=== PATIENT | female | born 1940 | race American Indian/Alaskan Native ===

== ENCOUNTER 2017-10-25 13:04 | Emergency (ER) | payer MEDICARE, OTHER ==
[~2017-10-25] VITALS: Ht 160 cm; Wt 101.6 kg
[~2017-10-25 13:04] MED LIST: ALLOPURINOL100 MG PO; ASPIR 8181 MG PO; ASPIRIN81 MG PO; AZITHROMYCIN250 MG PO; BUDEPRION XL150 MG PO; BUSPIRONE HCL15 MG PO; CALCIUM + D3 E1 EACH PO; CHOLECALCIFEROL1 GM; COMBIVENT INH14.7 GM INH; CYCLOBENZAPRINE5 MG PO; DOCUSATE SODIU100 MG PO; ISOSORBIDE MONO30 M1 PO; KEFLEX250 MG PO; KLOR-CON M2020 MEQ PO; LASIX20 MG PO; LEXAPRO20 MG; LISINOPRIL2.5 MG PO; MONTELUKAST SOD10 MG PO; NICOTINE PATCH1 EAC1 TD; NORCO 5-325 TA1 EACH PO; OMEPRAZOLE20 MG PO; PERCOCET 5-3251 EACH PO; PREDNISONE20 MG PO; SIMVASTATIN20 MG PO; SINGULAIR10 MG PO; SULINDAC200 MG; TOPROL XL25 MG PO
[2017-10-25] MEDS ORDERED: METHYLPREDNISOLO4 M1 PO (14:38)
== END 2017-10-25 14:46 | disposition home or self-care (01) ==
LOC: ED 13:04
DX: M25.512 Pain in left shoulder (principal); J44.9 Chronic obstructive pulmonary disease, unspecified; F17.200 Nicotine dependence, unspecified, uncomplicated; Z79.899 Other long term (current) drug therapy; Z79.82 Long term (current) use of aspirin
CPT/HCPCS: 73030; 99283

== ENCOUNTER 2017-12-26 12:52 | Emergency (ER) | payer MEDICARE, OTHER ==
[~2017-12-26] VITALS: Ht 160 cm; Wt 117.9 kg
--- OUTSIDE RECORDS SUMMARY | ~2017-12-26 | XMS | Clinical Summary ---
Demographics + + + | Address | [address] | | | [place] [address] | + + + | Home Phone | | + + + | Preferred Language | Unknown | + + + | Marital Status | | + + + | Rastafarian Affiliation | [id number] | + + + | Race | Unknown | + + + | Ethnic Group | Unknown | + + + Author + + + | Author | [facility] | | | and [place] | + + + | Organization | [facility] | | | and [place] | + + + | Address | Unknown | + + + | Phone | Unavailable | + + + Care Team Providers + +------+ + | Care Garden Labourer Name | Role | Phone | + +------+ + | Pcp, Prov Inactive | PP | | + +------+ + Allergies No Known Allergies Current Medications + + +-------+---------+------+------+-------+ | Prescription | Sig. | Disp. | Refills | Star | End | Statu | | | | | | t | Date | s | | | | | | Date | | | + + +-------+---------+------+------+-------+ | ipratropium | Take or use as | | | 09/1 | | Activ | | (ATROVENT HFA) 17 | needed. | | | 3/20 | | e | | mcg/puff inhaler | | | | 12 | | | + + +-------+---------+------+------+-------+ | KCl in | Take 1 tablet by | | | 09/1 | | Activ | | Dextrose-NaCl | mouth daily | | | 3/20 | | e | | 10-5-0.2 MEQ/L-%-% | | | | 12 | | | | SOLN | | | | | | | + + +-------+---------+------+------+-------+ | quiNINE | Take 324 mg by mouth | | | 01/15 | | Activ | | (QUALAQUIN) 324 mg | nightly. | | | 320 | | e | | capsule | | | | 12 | | | + + +-------+---------+------+------+-------+ | calcium-vitamin D | Take by mouth 2 | | | 01/15 | | Activ | | (CALCIUM + D) | times daily. | | | 08/03 | | e | | 250-125 MG-UNIT per | | | | 12 | | | | tablet | | | | | | | + + +-------+---------+------+------+-------+ | warfarin | 3 mg four days a | | | 01/15 | | Activ | | (COUMADIN) 3 MG | week, 4.5 mg three | | | 20 | | e | | tablet | days a week. | | | 12 | | | + + +-------+---------+------+------+-------+ | simvastatin | Take 40 mg by mouth | | | 01/15 | | Activ | | (ZOCOR) 40 mg tablet | Daily. | | | 3/20 | | e | | | | | | 12 | | | + + +-------+---------+------+------+-------+ | albuterol | 2 puffs four times | | | 1 | | Activ | | (VENTOLIN HFA) 90 | daily as needed. | | | 3/20 | | e | | mcg/puff inhaler | | | | 12 | | | + + +-------+---------+------+------+-------+ | triamcinolone | 4 puffs twice daily. | | | 01/15 | | Activ | | acetonide (KENALOG) | | | | 320 | | e | | 10 MG/ML injection | | | | 12 | | | + + +-------+---------+------+------+-------+ | PARoxetine (PAXIL) | Take 20 mg by mouth | | | 01/15 | | Activ | | 20 mg tablet | Daily. | | | 320 | | e | | | | | | 12 | | | + + +-------+---------+------+------+-------+ | lisinopril | Take 5 mg by mouth | | | 01/15 | | Activ | | (PRINIVIL, ZESTRIL) | Daily. | | | 320 | | e | | 5 mg tablet | | | | 12 | | | + + +-------+---------+------+------+-------+ | furosemide (LASIX) | Take 20 mg by mouth | | | 01/15 | | Activ | | 20 mg tablet | Daily. | | | 08/03 | | e | | | | | | 12 | | | + + +-------+---------+------+------+-------+ | loratadine | Take 10 mg by mouth | | | 01/15 | | Activ | | (CLARITIN) 10 mg | Daily as needed. | | | 08/03 | | e | | tablet | | | | 12 | | | + + +-------+---------+------+------+-------+ | metoprolol | Take 25 mg by mouth | | | 01/15 | | Activ | | succinate | Daily. | | | 08/03 | | e | | (TOPROL-XL) 25 mg 24 | | | | 12 | | | | hr tablet | | | | | | | + + +-------+---------+------+------+-------+ | acetaminophen | Take or use as | | | 09/1 | | Activ | | (TYLENOL) 325 mg | needed. | | | 3/20 | | e | | tablet | | | | 12 | | | + + +-------+---------+------+------+-------+ Active Problems + + + | Problem | Noted Date | + + + | CARDIOMYOPATHY, ISCHEMIC | | + + + | PULMONARY EMBOLISM | | + + + | HYPERTENSION | | + + + | HYPERCHOLESTEROLEMIA | | + + + | MYOCARDIAL INFARCTION, HX OF | | + + + | CORONARY ARTERY BYPASS GRAFT, FOUR VESSEL, HX OF | | + + + | COPD | | + + + | BRONCHITIS, CHRONIC | | + + + | ANGINA, STABLE | | + + + Social History + +-------+ [...] + + + | Blood Pressure | 122/74 | 01/27/2009 0000 PDT | + + + + | Pulse | - | - | + + + + | Temperature | - | - | + + + + | Respiratory Rate | - | - | + + + + | Oxygen Saturation | - | - | + + + + | Inhaled Oxygen | - | - | | Concentration | | | + + + + | Weight | 106.6 kg (235 lb) | 01/27/2009 0000 PDT | + + + + | Height | 160 cm (5' 3") | 01/27/2009 0000 PDT | + + + + | Body Mass Index | 41.63 | 01/27/2009 0000 PDT | + + + + Plan of Treatment + + + + + | Health Maintenance | Due Date | Last Done | Comments | + + + + + | Vaccine: | | | | | Dtap/Tdap/Td (1 - | 8 | | | | Tdap) | | | | + + + + + | Vaccine: | | | | | Pneumococcal 65+ | 4 | | | | Low/Medium Risk (1 | | | | | of 2 - PCV13) | | | | + + + + + | Vaccine: Influenza | | | | | (#1) | 8 | | | + + + + + Results Not on filefrom Last 3 Months Insurance + +--------+ +--------+ +---------+ | Payer | Benefi | Subscriber | Type | Phone | Address | | | t Plan | ID | | | | | | / | | | | | | | Group | | | | | + +--------+ +--------+ +---------+ | MEDICARE | MEDICA | [id number] | Medica | [phone] | | | RE | | re | [phone] | | | | PART A | | | | | | | AND B | | | | | + +--------+ +--------+ +---------+ | [facility] | [employer] | [phone] | Indemn | | | | SERVICE | YELLOW | | ity | | | | | HAWK | | | | | + +--------+ +--------+ +---------+ + +--------+ +--------+ + + | Guarantor Name | Accoun | Relation to | Date | Phone | Billing Address | | | t Type | Patient | of | | | | | | | | | | + +--------+ +--------+ + + | YULIANA GALINDO | Person [birth year] Self [birth year] Home: | [address] | | | al/Fam | | [phone] | [phone] | [place] [address] | | | shavon | | | [phone] | | + +--------+ +--------+ + +
--- OUTSIDE RECORDS SUMMARY | ~2017-12-26 | XMS | Encounter Summary ---
Demographics + + + | Address | [address] | | | [place] [address] | + + + | Home Phone | | + + + | Preferred Language | Unknown | + + + | Marital Status | | + + + | Buddhist Affiliation | 1041 | + + + | Race | Unknown | + + + | Ethnic Group | Unknown | + + + Author + + + | Author | [facility] | + + + | Organization | [facility] | + + + | Address | [...] Providers + +------+ + | Care Steam Blocker Name | Role | Phone | + +------+ + | Roxana Barajas PA-C | PCP | | + +------+ + Encounter Details +--------+ + + + + | Date | Type | Department | Care Team | Description | +--------+ + + + + | 12/20/ | Orders Only | [facility] | Adore Crooks, YUE | | | 2018 | | [facility] [place] | [address] | | | | | [address] | [place], [place] | | | | | [place], [place] | [address] | | | | | [address] | | | | | | [phone] | | | +--------+ + + + + Social History + +-------+ +--------+------+ | Tobacco Use | Types | Packs/Day | Years | Date | | | | | Used | | + +-------+ +--------+------+ | Heavy Tobacco Smoker | | 1 | 25 | | + +-------+ +--------+------+ + + +---------+ + | Alcohol Use [...] | +--------+ + + + + | 03/28/ | Documentati | Cardiology | | | | 2018 | on Only | | | | +--------+ + + + + | 07/04/ | Documentati | Cardiology | | | | 2019 | on Only | | | | +--------+ + + + + as of this encounter Procedures + +--------+ + + + | Procedure Name | Priori | Date/Time | Associated Diagnosis | Comments | | | ty | | | | + +--------+ + + + | PACEART DEVICE CHECK | Routin | 12/20/2017 | | Results for this | | REMOTE | e | 11:45 AM | | procedure are in the | | | | PDT | | results section. | + +--------+ + + + in this encounter Results PACEART DEVICE CHECK REMOTE (12/20/2017 11:45 AM) + + + + + | Component | Value | Ref Range | Performed At | + + + + + | Date Time | [id number] | | PACE[facility] | | Interrogation | | | | | Session | | | | + + + + + | Implantable Pulse | MDC_IDC_ENUM_MFG_BSX | | [facility]ACE[facility] | | Generator | | | | | Inspection Supervisor | | | | + + + + + | Implantable Pulse | [id number] TELIGEN 100 | | [facility] | | Generator Model | | | | + + + + + | Implantable Pulse | [id number] | | [facility] | | Generator Serial | | | | | Number | | | | + + + + + | Type Interrogation | MDC_IDC_ENUM_SESS_TYPE_R | | PACE[facility] | | Session | emote | | | + + + + + | Clinic Name | [facility] | | [facility] | + + + + + | Implantable Pulse | MDC_IDC_ENUM_DEV_TYPE_IC | | [facility] | | Generator Type | D | | | + + + + + | Implantable Pulse | [id number] | | [facility] | | Generator Implant | | | | | Date | | | | + + + + + | Implantable Lead | Guidant | | [facility] | | Inspection Supervisor | | | | + + + + + | Implantable Lead | [id number] | | [facility] | | Model | | | | + + + + + | Implantable Lead | [id number] | | [facility] | | Serial Number | | | | + + + + + | Implantable Lead | [id number] | | PACE[facility] | | Implant Date | | | | + + + + + | Implantable Lead | MDC_IDC_ENUM_LEAD_LOCATI | | [facility]ACE[facility] | | Location | ON_[place] | | | + + + + + | Implantable Lead | Guidant | | [facility]ACE[facility] | | Inspection Supervisor | | | | + + + + + | Implantable Lead | FINELINE II EZ Sterox | | PACE[facility] | | Model | [id number] | | | + + + + + | Implantable Lead | [id number] | | PACE[facility] | | Serial Number | | | | + + + + + | Implantable Lead | [id number] | | [facility]ACE[facility] | | Implant Date | | | | + + + + + | Implantable Lead | MDC_IDC_ENUM_LEAD_LOCATI | | [facility] | | Location | [place] | | | + + + + + | Tom Setting Mode | MDC_IDC_ENUM_BRADY_MODE_ | | PACE[facility] | | (NBG Code) | VDD | | | + + + + + | Tom Setting Lower | 50 | {beats}/min | [facility] | | Rate Limit | | | | + + + + + | Tom Setting | 130 | {beats}/min | [facility] | | Maximum Tracking | | | | | Rate | | | | + + + + + | Tom Setting | 120 | {beats}/min | [facility] | | Maximum Sensor Rate | | | | + + + + + | Tom Setting MAGEN | 350 | ms | PACE[facility] | | Delay Low | | | | + + + + + | Tom Setting MAGEN | 220 | ms | PACE[facility] | | Delay High | | | | + + + + + | Tom Setting AT | 170 | {beats}/min | [facility] | | Mode Switch Rate | | | | + + + + + | Tom Setting AT | MDC_IDC_ENUM_BRADY_MODE_ | | PACE[facility] | | Mode Switch Mode | VDIR | | | + + + + + | Lead Channel Setting | MDC_IDC_ENUM_POLARITY_BI | | PACE[facility] | | Sensing Polarity | | | | + + + + + | Lead Channel Setting | 0.15 | mV | [facility] | | Sensing Sensitivity | | | | + + + + + | Lead Channel Setting | MDC_IDC_ENUM_SENSING_ADA | | [facility]ACE[facility] | | Sensing Adaptation | PTATION_MODE_AdaptiveSen | | | | Mode | sing | | | + + + + + | Lead Channel Setting | MDC_IDC_ENUM_POLARITY_BI | | PACE[facility] | | Sensing Polarity | | | | + + + + + | Lead Channel Setting | 0.6 | mV | PACE[facility] | | Sensing Sensitivity | | | | + + + + + | Lead Channel Setting | MDC_IDC_ENUM_SENSING_ADA | | PACEART | | Sensing Adaptation | PTATION_MODE_AdaptiveSen | | | | Mode | sing | | | + + + + + | Lead Channel Setting | MDC_IDC_ENUM_POLARITY_BI | | PACEART | | Pacing Polarity | | | | + + + + + | Lead Channel Setting | MDC_IDC_ENUM_POLARITY_BI | | PACE[facility] | | Pacing Polarity | | | | + + + + + | Lead Channel Setting | 0.5 | ms | PACE[facility] | | Pacing Pulse Width | | | | + + + + + | Lead Channel Setting | 2.0 | V | PACEART | | Pacing Amplitude | | | | + + + + + | Zone Setting Type | MDC_IDC_ENUM_ZONE_TYPE_Z | | PACEART | | Category | one_VF | | | + + + + + | Zone Setting Vendor | MDC_IDC_ENUM_ZONE_VENDOR | | PACEART | | Type Category | _TYPE_BSX-Zone_VFComment | | | | | : 663758^MDT PROG TACHY | | | | | ZONE DETECTIONS | | | | | STATUS^MDT - ENABLED | | | + + + + + | Zone Setting | 261 | ms | PACE[facility] | | Detection Interval | | | | + + + + + | Zone Setting Type | MDC_IDC_ENUM_ZONE_TYPE_Z | | PACEART | | Category | one_VT | | | + + + + + | Zone Setting Vendor | MDC_IDC_ENUM_ZONE_VENDOR | | PACEART | | Type Category | _TYPE_BSX-Zone_VTComment | | | | | : 557427^MDT PROG TACHY | | | | | ZONE DETECTIONS | | | | | STATUS^MDT - ENABLED | | | + + + + + | Zone Setting | 316Comment: 297889^MDT | ms | PACE[facility] | | Detection Interval | PROG TACHY ZONE | | | | | THERAPIES 1 | | | | | SEQUENCEID^MDT - | | | | | 1 902425^MDT PROG | | | | | TACHY ZONE THERAPIES 1 | | | | | STATUS^MDT - | | | | | 579347^MDC_IDC_ENUM_ZONE | | | | | _STATUS_Active^MDC 10 | | | | | 0103^MDT PROG TACHY ZONE | | | | | THERAPIES 1 ATPTHERAPY | | | | | TYPE^MDT - | | | | | 952887^MDC_IDC_ENUM_ATP_ | | | | | TYPE_Burst^MDC 930745 | | | | | ^MDT PROG TACHY ZONE | | | | | THERAPIES 1 ATPTHERAPY | | | | | NUMBEROFSEQUENCES^MDT - | | | | | 1 591078^MDT PROG | | | | | TACHY ZONE THERAPIES 2 | | | | | SEQUENCEID^MDT - | | | | | 2 347487^MDT PROG | | | | | TACHY ZONE THERAPIES 2 | | | | | STATUS^MDT - | | | | | 990689^[facility] [place]IDC_ENUM_ZONE | | | | | _STATUS_Active^[facility] [place] 10 | | | | | 1064^MDT PROG TACHY ZONE | | | | | THERAPIES 2 | | | | | SHOCKTHERAPY ENERGY^MDT | | | | | - 31 655980^MDT PROG | | | | | TACHY ZONE THERAPIES 3 | | | | | SEQUENCEID^MDT - | | | | | 3 554839^MDT PROG | | | | | TACHY ZONE THERAPIES 3 | | | | | STATUS^MDT - | | | | | 341152^[facility] [place]_IDC_ENUM_ZONE | | | | | _STATUS_Active^[facility] [place] 10 | | | | | 1065^MDT PROG TACHY ZONE | | | | | THERAPIES 3 | | | | | SHOCKTHERAPY ENERGY^MDT | | | | | - 41 640221^MDT PROG | | | | | TACHY ZONE THERAPIES 4 | | | | | SEQUENCEID^MDT - | | | | | 4 866172^MDT PROG | | | | | TACHY ZONE THERAPIES 4 | | | | | STATUS^MDT - | | | | | 549068^[facility] [place]_IDC_ENUM_ZONE | | | | | _STATUS_Active^[facility] [place] 10 | | | | | 1066^MDT PROG TACHY ZONE | | | | | THERAPIES 4 | | | | | SHOCKTHERAPY ENERGY^MDT | | | | | - 41 898568^MDT PROG | | | | | TACHY ZONE THERAPIES 5 | | | | | SEQUENCEID^MDT - | | | | | 5 388877^MDT PROG | | | | | TACHY ZONE THERAPIES 5 | | | | | STATUS^MDT - | | | | | 492880^[facility] [place]_IDC_ENUM_ZONE | | | | | _STATUS_Active^[facility] [place] 10 | | | | | 1067^MDT PROG TACHY ZONE | | | | | THERAPIES 5 | | | | | SHOCKTHERAPY ENERGY^MDT | | | | | - 41 088047^MDT PROG | | | | | TACHY ZONE THERAPIES 6 | | | | | SEQUENCEID^MDT - | | | | | 6 813256^MDT PROG | | | | | TACHY ZONE THERAPIES 6 | | | | | STATUS^MDT - | | | | | 466912^[facility] [place]_IDC_ENUM_ZONE | | | | | _STATUS_Active^[facility] [place] 10 | | | | | 1068^MDT PROG TACHY ZONE | | | | | THERAPIES 6 | | | | | SHOCKTHERAPY ENERGY^MDT | | | | | - 41 074577^MDT PROG | | | | | TACHY ZONE THERAPIES 7 | | | | | SEQUENCEID^MDT - | | | | | 7 888776^MDT PROG | | | | | TACHY ZONE THERAPIES 7 | | | | | STATUS^MDT - | | | | | 986094^[facility] [place]_IDC_ENUM_ZONE | | | | | _STATUS_Active^[facility] [place] 10 | | | | | 1069^MDT PROG TACHY ZONE | | | | | THERAPIES 7 | | | | | SHOCKTHERAPY ENERGY^MDT | | | | | - 41 808294^MDT PROG | | | | | TACHY ZONE THERAPIES 8 | | | | | SEQUENCEID^MDT - | | | | | 8 048751^MDT PROG | | | | | TACHY ZONE THERAPIES 8 | | | | | STATUS^MDT - | | | | | 524779^[facility] [place]_IDC_ENUM_ZONE | | | | | _STATUS_Active^[facility] [place] 10 | | | | | 1070^MDT PROG TACHY ZONE | | | | | THERAPIES 8 | | | | | SHOCKTHERAPY ENERGY^MDT | | | | | - 41 373067^MDT PROG | | | | | TACHY ZONE THERAPIES 9 | | | | | SEQUENCEID^MDT - | | | | | 9 954688^MDT PROG | | | | | TACHY ZONE THERAPIES 9 | | | | | STATUS^MDT - | | | | | 010261^[facility] [place]_IDC_ENUM_ZONE | | | | | _STATUS_Active^[facility] [place] [place] 10 | | | | | 1071^MDT PROG TACHY ZONE | | | | | THERAPIES 9 | | | | | SHOCKTHERAPY ENERGY^MDT | | | | | - 41 9659092^MDT PROG | | | | | TACHY ZONE THERAPIES | | | | | SUMMARY^MDT - Burst, | | | | | 31J, 41J X | | | | | 7 952660^MDT PROG | | | | | TACHY ZONE THERAPIES 1 | | | | | SEQUENCEID^MDT - | | | | | 1 061629^MDT PROG | | | | | TACHY ZONE THERAPIES 1 | | | | | STATUS^MDT - | | | | | 573424^[facility] [place]_IDC_ENUM_ZONE | | | | | _STATUS_Active^[facility] [place] [place] 10 | | | | | 0103^MDT PROG TACHY ZONE | | | | | THERAPIES 1 ATPTHERAPY | | | | | TYPE^MDT - | | | | | 245045^[facility] [place]_IDC_ENUM_ATP_ | | | | | TYPE_Burst^MDC 336359 | | | | | ^MDT PROG TACHY ZONE | | | | | THERAPIES 1 ATPTHERAPY | | | | | NUMBEROFSEQUENCES^MDT - | | | | | 3 663495^MDT PROG | | | | | TACHY ZONE THERAPIES 2 | | | | | SEQUENCEID^MDT - | | | | | 2 693632^MDT PROG | | | | | TACHY ZONE THERAPIES 2 | | | | | STATUS^MDT - | | | | | 219648^[facility] [place]_IDC_ENUM_ZONE | | | | | _STATUS_Active^[facility] [place] [place] 10 | | | | | 0104^MDT PROG TACHY ZONE | | | | | THERAPIES 2 ATPTHERAPY | | | | | TYPE^MDT - | | | | | 070806^[facility] [place]_IDC_ENUM_ATP_ | | | | | TYPE_BurstScan^[facility] [place] [place] 10 | | | | | 0324^MDT PROG TACHY ZONE | | | | | THERAPIES 2 ATPTHERAPY | | | | | NUMBEROFSEQUENCES^MDT - | | | | | 3 223741^MDT PROG | | | | | TACHY ZONE THERAPIES 3 | | | | | SEQUENCEID^MDT - | | | | | 3 211464^MDT PROG | | | | | TACHY ZONE THERAPIES 3 | | | | | STATUS^MDT - | | | | | 732727^[facility] [place]_IDC_ENUM_ZONE | | | | | _STATUS_Active^[facility] [place] [place] 10 | | | | | 1065^MDT PROG TACHY ZONE | | | | | THERAPIES 3 | | | | | SHOCKTHERAPY ENERGY^MDT | | | | | - 31 860425^MDT PROG | | | | | TACHY ZONE THERAPIES 4 | | | | | SEQUENCEID^MDT - | | | | | 4 707183^MDT PROG | | | | | TACHY ZONE THERAPIES 4 | | | | | STATUS^MDT - | | | | | 465130^[facility] [place]_IDC_ENUM_ZONE | | | | | _STATUS_Active^[facility] [place] [place] 10 | | | | | 1066^MDT PROG TACHY ZONE | | | | | THERAPIES 4 | | | | | SHOCKTHERAPY ENERGY^MDT | | | | | - 41 656741^MDT PROG | | | | | TACHY ZONE THERAPIES 5 | | | | | SEQUENCEID^MDT - | | | | | 5 237574^MDT PROG | | | | | TACHY ZONE THERAPIES 5 | | | | | STATUS^MDT - | | | | | 922294^[facility] [place]_IDC_ENUM_ZONE | | | | | _STATUS_Active^[facility] [place] [place] 10 | | | | | 1067^MDT PROG TACHY ZONE | | | | | THERAPIES 5 | | | | | SHOCKTHERAPY ENERGY^MDT | | | | | - 41 567915^MDT PROG | | | | | TACHY ZONE THERAPIES 6 | | | | | SEQUENCEID^MDT - | | | | | 6 158868^MDT PROG | | | | | TACHY ZONE THERAPIES 6 | | | | | STATUS^MDT - | | | | | 939054^[facility] [place] [place]_IDC_ENUM_ZONE | | | | | _STATUS_Active^[facility] [place] [place] 10 | | | | | 1068^MDT PROG TACHY ZONE | | | | | THERAPIES 6 | | | | | SHOCKTHERAPY ENERGY^MDT | | | | | - 41 793108^MDT PROG | | | | | TACHY ZONE THERAPIES 7 | | | | | SEQUENCEID^MDT - | | | | | 7 520633^MDT PROG | | | | | TACHY ZONE THERAPIES 7 | | | | | STATUS^MDT - | | | | | 317213^MDC_IDC_ENUM_ZONE | | | | | _STATUS_Active^MDC 10 | | | | | 1069^MDT PROG TACHY ZONE | | | | | THERAPIES 7 | | | | | SHOCKTHERAPY ENERGY^MDT | | | | | - 41 562766^MDT PROG | | | | | TACHY ZONE THERAPIES 8 | | | | | SEQUENCEID^MDT - | | | | | 8 765414^MDT PROG | | | | | TACHY ZONE THERAPIES 8 | | | | | STATUS^MDT - | | | | | 473257^MDC_IDC_ENUM_ZONE | | | | | _STATUS_Active^MDC 10 | | | | | 1070^MDT PROG TACHY ZONE | | | | | THERAPIES 8 | | | | | SHOCKTHERAPY ENERGY^MDT | | | | | - 41 4197585^MDT PROG | | | | | TACHY ZONE THERAPIES | | | | | SUMMARY^MDT - Burst(3), | | | | | Burst Scan(3), 31J, 41J | | | | | X 5 | | | + + + + + | Lead Channel | 409Comment: 9492528^MDT | ohm | PACEART | | Impedance Value | STAT LEADS | | | | | LOWPOWERCHANNEL RA | | | | | IMPEDANCE STARTDATE^MDT | | | | | - | | | | | [id number]+0000 1 | | | | | 979979^MDT STAT LEADS | | | | | LOWPOWERCHANNEL RA | | | | | IMPEDANCE ENDDATE^MDT - | | | | | + | | | | | 477779^MDT STAT LEADS | | | | | LOWPOWERCHANNEL RA | | | | | IMPEDANCE POLARITY^MDT - | | | | | | | | | | 451923^MDC_IDC_ENUM_POLA | | | | | RITY_BI^MDC 1719239^M | | | | | DT STAT LEADS | | | | | LOWPOWERCHANNEL RA | | | | | SENSITIVITIES MEAN | | | | | VALUE^MDT - | | | | | 0.8 4250145^MDT STAT | | | | | LEADS LOWPOWERCHANNEL RA | | | | | SENSITIVITIES | | | | | STARTDATE^MDT - | | | | | + | | | | | 718972^MDT STAT LEADS | | | | | LOWPOWERCHANNEL RA | | | | | SENSITIVITIES | | | | | ENDDATE^MDT - | | | | | + | | | | | 650506^MDT STAT LEADS | | | | | LOWPOWERCHANNEL RA | | | | | SENSITIVITIES | | | | | POLARITY^MDT - | | | | | 904487^MDC_IDC_ENUM_POLA | | | | | RITY_BI^MDC | | | + + + + + | Lead Channel Pacing | 5.0 | V | PACEART | | Threshold Amplitude | | | | + + + + + | Lead Channel Pacing | 1.5Comment: 2559572^MDT | ms | PACEART | | Threshold Pulse | STAT LEADS | | | | Width | LOWPOWERCHANNEL RA | | | | | CAPTURES STARTDATE^MDT - | | | | | | | | | | + | | | | | 958712^MDT STAT LEADS | | | | | LOWPOWERCHANNEL RA | | | | | CAPTURES ENDDATE^MDT - | | | | | + | | | | | 045996^MDT STAT LEADS | | | | | LOWPOWERCHANNEL RA | | | | | CAPTURES METHOD^MDT - | | | | | INSTRUMENT_INITIATED | | | | | 5867601^MDT STAT LEADS | | | | | LOWPOWERCHANNEL RA | | | | | CAPTURES POLARITY^MDT - | | | | | 561830^MDC_IDC_ENUM_POLA | | | | | RITY_BI^MDC | | | + + + + + | Lead Channel | 494Comment: 5994691^MDT | ohm | PACEART | | Impedance Value | STAT LEADS | | | | | LOWPOWERCHANNEL RV | | | | | IMPEDANCE STARTDATE^MDT | | | | | - | | | | | + | | | | | 168475^MDT STAT LEADS | | | | | LOWPOWERCHANNEL RV | | | | | IMPEDANCE ENDDATE^MDT - | | | | | + | | | | | 581615^MDT STAT LEADS | | | | | LOWPOWERCHANNEL RV | | | | | IMPEDANCE POLARITY^MDT - | | | | | | | | | | 327923^MDC_IDC_ENUM_POLA | | | | | RITY_BI^MDC 3649685^M | | | | | DT STAT LEADS | | | | | LOWPOWERCHANNEL RV | | | | | SENSITIVITIES MEAN | | | | | VALUE^MDT - | | | | | 11.1 5924962^MDT STAT | | | | | LEADS LOWPOWERCHANNEL | | | | | RV SENSITIVITIES | | | | | STARTDATE^MDT - | | | | | +0000 | | | | | 451081^MDT STAT LEADS | | | | | LOWPOWERCHANNEL RV | | | | | SENSITIVITIES | | | | | ENDDATE^MDT - | | | | | + | | | | | 607715^MDT STAT LEADS | | | | | LOWPOWERCHANNEL RV | | | | | SENSITIVITIES | | | | | POLARITY^MDT - | | | | | 308381^MDC_IDC_ENUM_POLA | | | | | RITY_BI^MDC | | | + + + + + | Lead Channel Pacing | 0.7 | V | PACEART | | Threshold Amplitude | | | | + + + + + | Lead Channel Pacing | 0.5Comment: 9112757^MDT | ms | PACEART | | Threshold Pulse | STAT LEADS | | | | Width | LOWPOWERCHANNEL RV | | | | | CAPTURES STARTDATE^MDT - | | | | | | | | | | +0000 1 | | | | | 485534^MDT STAT LEADS | | | | | LOWPOWERCHANNEL RV | | | | | CAPTURES ENDDATE^MDT - | | | | | +0000 1 | | | | | 798916^MDT STAT LEADS | | | | | LOWPOWERCHANNEL RV | | | | | CAPTURES METHOD^MDT - | | | | | INSTRUMENT_INITIATED | | | | | 5669657^MDT STAT LEADS | | | | | LOWPOWERCHANNEL RV | | | | | CAPTURES POLARITY^MDT - | | | | | 452648^MDC_IDC_ENUM_POLA | | | | | RITY_BI^MDC 5082305^M | | | | | DT STAT LEADS | | | | | HIGHPOWERCHANNEL | | | | | IMPEDANCES MEASURED | | | | | VALUE^MDT - | | | | | 59 9279620^MDT STAT | | | | | LEADS HIGHPOWERCHANNEL | | | | | IMPEDANCES STARTDATE^MDT | | | | | - | | | | | +0000 | | | + + + + + | Battery Date Time of | +0000 | | PACEART | | Measurements | | | | + + + + + | Battery Status | MDC_IDC_ENUM_BATTERY_STA | | PACEART | | | TUS_BOS | | | + + + + + | Battery Remaining | 48 | mo | PACEART | | Longevity | | | | + + + + + | Battery Remaining | 60 | % | PACEART | | Percentage | | | | + + + + + | Capacitor Charge | MDC_IDC_ENUM_CHARGE_TYPE | | PACEART | | Type | _Reformation | | | + + + + + | Capacitor Last | [phone]+0000 | | PACEART | | Charge Date Time | | | | + + + + + | Capacitor Charge | 9.4 | s | PACEART | | Time | | | | + + + + + | Capacitor Charge | MDC_IDC_ENUM_CHARGE_TYPE | | PACEART | | Type | _Shock | | | + + + + + | Capacitor Last | [id number] | | PACEART | | Charge Date Time | | | | + + + + + | Capacitor Charge | 3.7 | s | PACEART | | Time | | | | + + + + + | Capacitor Charge | 21 | J | PACEART | | Energy | | | | + + + + + | Tom Statistic Date | [phone] | | PACEART | | Time Start | | | | + + + + + | Tom Statistic Date | [phone] | | PACEART | | Time End | | | | + + + + + | Tom Statistic RA | 0 | % | PACEART | | Percent Paced | | | | + + + + + | Tom Statistic RV | 0 | % | PACEART | | Percent Paced | | | | + + + + + | Therapy Statistic | 0 | | PACEART | | Recent Shocks | | | | | Delivered | | | | + + + + + | Therapy Statistic | 0 | | PACEART | | Recent Shocks | | | | | Aborted | | | | + + + + + | Therapy Statistic | 0 | | PACEART | | Recent ATP Delivered | | | | + + + + + | Therapy Statistic | [phone]+0000 | | PACEART | | Recent Date Time | | | | | Start | | | | + + + + + | Therapy Statistic | [id number] | | PACEART | | Recent Date Time End | | | | + + + + + | Therapy Statistic | 1 | | PACEART | | Total Shocks | | | | | Delivered | | | | + + + + + | Therapy Statistic | 0 | | PACEART | | Total Shocks Aborted | | | | + + + + + | Therapy Statistic | 0 | | PACEART | | Total ATP Delivered | | | | + + + + + | Therapy Statistic | [id number] | | PACEART | | Total Date Time End | | | | + + + + + | Episode Statistic | 0 | | PACEART | | Recent Count | | | | + + + + + | Episode Statistic | MDC_IDC_ENUM_EPISODE_TYP | | PACEART | | Type Category | E_Epis_ATAF | | | + + + + + | Episode Statistic | MDC_IDC_ENUM_EPISODE_VEN | | PACEART | | Vendor Type Category | DOR_TYPE_BSX-Epis_AF | | | + + + + + | Episode Statistic | 0 | | PACEART | | Recent Count | | | | + + + + + | Episode Statistic | MDC_IDC_ENUM_EPISODE_TYP | | PACEART | | Type Category | E_Epis_Other | | | + + + + + | Episode Statistic | 0 | | PACEART | | Recent Count | | | | + + + + + | Episode Statistic | MDC_IDC_ENUM_EPISODE_TYP | | PACEART | | Type Category | E_Epis_VT | | | + + + + + | Episode Statistic | MDC_IDC_ENUM_EPISODE_VEN | | PACEART | | Vendor Type Category | DOR_TYPE_BSX-Epis_NSVT | | | + + + + + | Episode Statistic | 0 | | PACEART | | Recent Count | | | | + + + + + | Episode Statistic | MDC_IDC_ENUM_EPISODE_TYP | | PACEART | | Type Category | E_Epis_VF | | | + + + + + | Episode Statistic | MDC_IDC_ENUM_EPISODE_VEN | | PACEART | | Vendor Type Category | DOR_TYPE_BSX-Epis_VF | | | + + + + + | Episode Statistic | 0 | | PACEART | | Recent Count | | | | + + + + + | Episode Statistic | MDC_IDC_ENUM_EPISODE_TYP | | PACEART | | Type Category | E_Epis_VT | | | + + + + + | Episode Statistic | MDC_IDC_ENUM_EPISODE_VEN | | PACEART | | Vendor Type Category | DOR_TYPE_BSX-Epis_VT | | | + + + + + | Episode Statistic | 0 | | PACEART | | Recent Count | | | | + + + + + | Episode Statistic | MDC_IDC_ENUM_EPISODE_TYP | | PACEART | | Type Category | E_Epis_VT | | | + + + + + | Episode Statistic | MDC_IDC_ENUM_EPISODE_VEN | | PACEART | | Vendor Type Category | [id number] | | | + + + + + | Episode Statistic | +0000 | | PACEART | | Recent Date Time | | | | | Start | | | | + + + + + | Episode Statistic | +0000 | | PACEART | | Recent Date Time End | | | | + + + + + | Episode Statistic | +0000 | | PACEART | | Recent Date Time | | | | | Start | | | | + + + + + | Episode Statistic | +0000 | | PACEART | | Recent Date Time End | | | | + + + + + | Episode Statistic | [id number] | | PACEART | | Recent Date Time | | | | | Start | | | | + + + + + | Episode Statistic | [id number] | | PACE[facility] | | Recent Date Time End | | | | + + + + + | Episode Statistic | [id number] | | PACEART | | Recent Date Time | | | | | Start | | | | + + + + + | Episode Statistic | [id number] | | PACE[facility] | | Recent Date Time End | | | | + + + + + | Episode Statistic | [id number] | | PACEART | | Recent Date Time | | | | | Start | | | | + + + + + | Episode Statistic | + | | PACEART | | Recent Date Time End | | | | + + + + + | Episode Statistic | +0000 | | PACEART | | Recent Date Time | | | | | Start | | | | + + + + + | Episode Statistic | +0000 | | PACEART | | Recent Date Time End | | | | + + + + + | Episode Identifier | [id number] ([id number]) | | PACEART | + + + + + | Episode Type | MDC_IDC_ENUM_EPISODE_TYP | | PACEART | | Category | E_Epis_PeriodicEGM | | | + + + + + | Episode Date Time | [id number] | | PACEART | | | nt: [id number]^MDT | | | | | EVALUATION | | | | | DEPENDENCY^MDT - | | | | | NO [id number]^MDT | | | | | EVALUATION RHYTHM^MDT - | | | | | AsVs | | | | | 85bpm [id number]^MDT | | | | | EVALUATION | | | | | MISCELLANEOUSCOMMENT^MDT | | | | | - ICD REMOTE | | | | | INTERROGATION REPORT | | | | | Name: | | | | | Yuliana Burton: | | | | | Roxana White: | | | | | 1940MRN: | | | | | [id number] | | | | | cardiology provider: | | | | | Tres Umanaimary | | | | | electrophysiology | | | | | provider: None | | | | | | | | | | | | | | | Device c winforms developer: | | | | | [employer] | | | | | Device type: Dual | | | | | chamber | | | | | Battery Longevity: 4 | | | | | years | | | | | RA Pacin% RV | | | | | Pacin% | | | | | INTERROGATION | | | | | RESULTS:Please see the | | | | | full interrogation | | | | | report attached | | | | | Known history of | | | | | atrial flutter or atrial | | | | | fibrillation: NoCurrent | | | | | antithrombotic therapy | | | | | including: clopidogrel | | | | | Mode switches: None. | | | | | VT/VF Detections: | | | | | None. | | | | | Lead function: Lead | | | | | impedance and threshold | | | | | value trends have been | | | | | reviewed and are | | | | | stable. | | | | | Follow up: The next | | | | | scheduled interrogation | | | | | will be in 3 months via | | | | | remote transmission. | | | | | Additional comments: | | | | | None. | | | | | IMPRESSION:1. Normal | | | | | ICD function.2. ATRIAL | | | | | DEVICE FINDINGS: No | | | | | atrial | | | | | fibrillation/flutter | | | | | noted. 3. No VT/VF | | | | | therapies have been | | | | | given since the last | | | | | interrogation. | | | | | Testing reviewed by: | | | | | Luke Crooks | | | + + + + + + +---------+ + + | Performing | Address | City/State/Zipcode | Phone Number | | Organization | | | | + +---------+ + + | [facility] | | | | + +---------+ + + in this encounter Visit Diagnoses Not on filein this encounter"
--- OUTSIDE RECORDS SUMMARY | ~2017-12-26 | XMS | Encounter Summary ---
Demographics + + + | Address | [address] | | | [place] [address] | + + + | Home Phone | | + + + | Preferred Language | Unknown | + + + | Marital Status | | + + + | Catholic Affiliation | 1041 | + + + | Race | Unknown | + + + | Ethnic Group | Unknown | + + + Author + + + | Author | [facility] | + + + | Organization | [facility] | + + + | [...] Team Providers + +------+ + | Care Preform Machine Operator Name | Role | Phone | + +------+ + | Roxana Barajas PA-C | PCP | | + +------+ + Reason for Visit + + + | Reason | Comments | + + + | Automatic | remote | | Implantable | | | Cardioverter | | | Defibrillator | | + + + Encounter Details +--------+ + + + + | Date | Type | Department | Care Team | Description | +--------+ + + + + | 12/20/ | Documentati | [facility] | Luke Crooks | Automatic | | 2018 | on Only | [facility] | | Implantable | | | | [address] | | Cardioverter | | | | [place] | | Defibrillator | | | | [phone] | | (remote) | | | | [phone] | | | +--------+ + + + [...] + as of this encounter Progress Notes Luke Crooks - 12/20/2017 8:00 AM PDTFormatting of this note may be different from the orig inal. 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 VT/VF Detections: None. Lead function: Lead impedance and threshold value trends have been reviewed and are stable. Follow up: The next scheduled interrogation will be in 3 months via remote transmission. Additional comments: None. IMPRESSION: 1. Normal ICD function. 2. ATRIAL DEVICE FINDINGS: No atrial fibrillation/flutter noted. 3. No VT/VF therapies have been given since the last interrogation. Testing reviewed by: Luke Crooks Associated attestation - Adore Crooks NP - 12/21/2017 9:00 AM PDTAgree with NASRA Khan in this encounter Plan of Treatment +--------+ + + + + | Date | Type | Specialty | Care Team | Description | +--------+ + + + + | 03/28/ | Documentati | Cardiology | | | | 2017 | on Only | | | | +--------+ + + + + | 07/04/ | Documentati | Cardiology | | | | 2018 | on Only | | | | +--------+ + + + + as of this encounter Visit Diagnoses + + | Diagnosis | + + | VT (ventricular tachycardia) ([facility]) - Primary | + + | Paroxysmal ventricular tachycardia | + + | Cardiomyopathy, unspecified type ([facility]) | + +"
--- OUTSIDE RECORDS SUMMARY | ~2017-12-26 | XMS | Encounter Summary ---
Demographics + + + | Address | [address] | | | [place] [address] | + + + | Home Phone | | + + + | Preferred Language | Unknown | + + + | Marital Status | | + + + | Jain Affiliation | 1041 | + + + | Race | Unknown | + + + | Ethnic Group | Unknown | + + + Author + + + | Author | [facility] | + + + | Organization | [facility] | + + + | [...] Team Providers + +------+ + | Care Operational Review Sergeant Name | Role | Phone | + [...] + | 12/20/ | Documentati | [facility] | Luke Crooks | Automatic | | 2018 | on Only | [facility] | | Implantable | | | | [address] | | Cardioverter | | | | [place] | | Defibrillator | | | | [phone] | | (remote) | | | | [phone] | | | +--------+ + + + [...] Tres Hewitt Primary electrophysiology provider: None 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
--- OUTSIDE RECORDS SUMMARY | ~2017-12-26 | XMS | Clinical Summary ---
Demographics + + + | Address | [address] | | | [place] [address] | + + + | Home Phone | | + + + | Preferred Language | Unknown | + + + | Marital Status | | + + + | Mandaeism Affiliation | 1041 | + + + | Race | Unknown | + + + | Ethnic Group | Unknown | + + + Author + + + | Author | [employer] | + + + | Organization | [facility] | + [...] Team Providers + +------+ + | Care Weapons Designer Name | Role | Phone | + +------+ + | Roxana Barajas PA-C | PP | | + +------+ + Allergies No Known Allergies Current Medications + + +--------+---------+------+------+-------+ | Prescription | Sig. | Disp. | Refills | Star | End | Statu | | | | | | t | Date | s | | | | | | Date | | | + + +--------+---------+------+------+-------+ | acetaminophen | Take 325 mg by mouth | | | | | Activ | | (TYLENOL) 325 MG | every 6 (six) hours | | | | | e | | tablet | as needed for Pain. | | | | | | + + +--------+---------+------+------+-------+ | allopurinol | Take 100 mg by mouth | | | | | Activ | | (ZYLOPRIM) 100 MG | daily. | | | | | e | | tablet | | | | | | | + + +--------+---------+------+------+-------+ | aspirin 81 MG | Take 81 mg by mouth | | | | | Activ | | tablet | daily. | | | | | e | + + +--------+---------+------+------+-------+ | cholecalciferol | Take 1,000 Units by | | | | | Activ | | (VITAMIN D-3) 1000 | mouth daily. | | | | | e | | UNITS tablet | | | | | | | + + +--------+---------+------+------+-------+ | escitalopram | Take 20 mg by mouth | | | | | Activ | | (LEXAPRO) 20 MG | daily. | | | | | e | | tablet | | | | | | | + + +--------+---------+------+------+-------+ | furosemide (LASIX) | Take 20 mg by mouth | | | | | Activ | | 20 MG tablet | daily. | | | | | e | + + +--------+---------+------+------+-------+ | isosorbide | Take 30 mg by mouth | | | | | Activ | | dinitrate (ISORDIL) | daily. | | | | | e | | 30 MG tablet | | | | | | | + + +--------+---------+------+------+-------+ | metoprolol | Take 25 mg by mouth | | | | | Activ | | (TOPROL-XL) 25 MG 24 | daily. | | | | | e | | hr tablet | | | | | | | + + +--------+---------+------+------+-------+ | nicotine (NICODERM | Place 1 patch onto | | | | | Activ | | CQ) 7 MG/24HR | the skin daily. | | | | | e | + + +--------+---------+------+------+-------+ | potassium chloride | Take 20 mEq by mouth | | | | | Activ | | (KLOR-CON) 20 MEQ | daily. | | | | | e | | packet | | | | | | | + + +--------+---------+------+------+-------+ | lisinopril | Take 1 tablet by | 90 | 3 | 11/0 | | Activ | | (ZESTRIL) 5 MG | mouth daily. | tablet | | 5/20 | | e | | tablet | | | | 15 | | | + + +--------+---------+------+------+-------+ | clopidogrel | Take 1 tablet by | 30 | 11 | 12/1 | | Activ | | (PLAVIX) 75 MG | mouth daily. | tablet | | 5/20 | | e | | tablet | | | | 16 | | | + + +--------+---------+------+------+-------+ Active Problems + + + | Problem | Noted Date | + + + | Cardiac defibrillator in place | 09/24/2015 | + + + + + | Overview: [place] | | Telogen model E110, serial number [id number] | + + Encounters +--------+ + + + + | Date | Type | Specialty | Care Team | Description | +--------+ + + + + | 12/20/ | Documentati | | Luke Crooks | Automatic | | 2018 | on Only | | | Implantable | | | | | | Cardioverter | | | | | | Defibrillator | | | | | | (remote) | +--------+ + + + + | 12/20/ | Orders Only | | Adore Crooks NP | | | 2018 | | | | | +--------+ + + + + from Last 3 Months Social History + +-------+ +--------+------+ | Tobacco [...] + + + | Blood Pressure | 124/56 | 10/06/2016 1:02 PM PDT | + + + + | Pulse | 61 | 10/06/2016 1:02 PM PDT | + + + + | Temperature | - | - | + + + + | Respiratory Rate | 24 | 10/06/2016 1:02 PM PDT | + + + + | Oxygen Saturation | 95% | 10/06/2016 1:02 PM PDT | + + + + | Inhaled Oxygen | - | - | | Concentration | | | + + + + | Weight | 102.1 kg (225 lb) | 10/06/2016 1:02 PM PDT | + + + + | Height | 157.5 cm (5' 2") | 10/06/2016 1:02 PM PDT | + + + + | Body Mass Index | 41.15 | 10/06/2016 1:02 PM PDT | + + + + Plan of Treatment +--------+ + + + + | Date | Type | Specialty | Care Team | Description | +--------+ + + + + | 03/28/ | Documentati | | | | | 2018 | on Only | | | | +--------+ + + + + | 07/04/ | Documentati | | | | | [...] + + from Last 3 Months Results PACEART DEVICE CHECK REMOTE (12/20/2017 11:45 AM) + + + + + | Component | Value | Ref Range | Performed At | + + + + + | Date Time | [id number] | | [facility] | | Interrogation | | | | | Session | | | | + + + + + | Implantable Pulse | MDC_IDC_ENUM_MFG_BSX | | PACEART | | Generator | | | | | Abstract Writer | | | | + + + + + | Implantable Pulse | E110 TELIGEN 100 | | PACEART | | Generator Model | | | | + + + + + | Implantable Pulse | [id number] | | PACEART | | Generator Serial [...] + + + | Implantable Pulse | [id number] | | PACEART | | Generator Implant | | | | | Date | | | | + + + + + | Implantable Lead | Guidant | | PACEART | | Abstract Writer | | | | + + + + + | Implantable Lead | [id number] | | PACEART | | Model | | | | + + + + + | Implantable Lead | [id number] | | PACEART | | Serial Number | | | | + + + + + | Implantable Lead | [id number] | | PACEART | | Implant Date | | | | + + + + + | Implantable Lead | MDC_IDC_ENUM_LEAD_LOCATI | | PACEART | | Location | ON_[place] | | | + + + + + | Implantable Lead | Guidant | | PACEART | | Abstract Writer | | | | + + + + + | Implantable Lead | FINELINE II EZ Sterox | | PACEART | | Model | [id number] | | | + + + + + | Implantable Lead | [id number] | | PACEART | | Serial Number | | | | + + + + + | Implantable Lead | [id number] | | PACEART | | Implant Date [...] _TYPE_BSX-Zone_VFComment | | | | | : 218678^GEMA WALL | | | | | ZONE DETECTIONS [...] _TYPE_BSX-Zone_VTComment | | | | | : 399522^MDT PROG TACHY | | | | | ZONE DETECTIONS | | | | | STATUS^MDT - ENABLED | | | + + + + + | Zone Setting | 316Comment: 080163^MDT | ms | PACEART | | Detection Interval | PROG TACHY ZONE | | | | | THERAPIES 1 | | | | | SEQUENCEID^MDT - | | | | | 1 392560^MDT PROG | | | | | TACHY ZONE THERAPIES 1 | | | | | STATUS^MDT - | | | | | 094049^MDC_IDC_ENUM_ZONE | | | | | _STATUS_Active^MDC 10 | | | | | 0103^MDT PROG TACHY ZONE | | | | | THERAPIES 1 ATPTHERAPY | | | | | TYPE^MDT - | | | | | 487699^MDC_IDC_ENUM_ATP_ | | | | | TYPE_Burst^MDC 797876 | | | | | ^MDT PROG TACHY ZONE | | | | | THERAPIES 1 ATPTHERAPY | | | | | NUMBEROFSEQUENCES^MDT - | | | | | 1 456384^MDT PROG | | | | | TACHY ZONE THERAPIES 2 | | | | | SEQUENCEID^MDT - | | | | | 2 836205^MDT PROG | | | | | TACHY ZONE THERAPIES 2 | | | | | STATUS^MDT - | | | | | 444412^[facility]_IDC_ENUM_ZONE | | | | | _STATUS_Active^[facility] 10 | | | | | 1064^MDT PROG TACHY ZONE | | | | | THERAPIES 2 | | | | | SHOCKTHERAPY ENERGY^MDT | | | | | - 31 902431^MDT PROG | | | | | TACHY ZONE THERAPIES 3 | | | | | SEQUENCEID^MDT - | | | | | 3 100619^MDT PROG | | | | | TACHY ZONE THERAPIES 3 | | | | | STATUS^MDT - | | | | | 817641^[facility]_IDC_ENUM_ZONE | | | | | _STATUS_Active^[facility] 10 | | | | | 1065^MDT PROG TACHY ZONE | | | | | THERAPIES 3 | | | | | SHOCKTHERAPY ENERGY^MDT | | | | | - 41 764296^MDT PROG | | | | | TACHY ZONE THERAPIES 4 | | | | | SEQUENCEID^MDT - | | | | | 4 337258^MDT PROG | | | | | TACHY ZONE THERAPIES 4 | | | | | STATUS^MDT - | | | | | 965367^[facility]_IDC_ENUM_ZONE | | | | | _STATUS_Active^[facility] 10 | | | | | 1066^MDT PROG TACHY ZONE | | | | | THERAPIES 4 | | | | | SHOCKTHERAPY ENERGY^MDT | | | | | - 41 780884^MDT PROG | | | | | TACHY ZONE THERAPIES 5 | | | | | SEQUENCEID^MDT - | | | | | 5 734669^MDT PROG | | | | | TACHY ZONE THERAPIES 5 | | | | | STATUS^MDT - | | | | | 940200^[facility]_IDC_ENUM_ZONE | | | | | _STATUS_Active^[facility] 10 | | | | | 1067^MDT PROG TACHY ZONE | | | | | THERAPIES 5 | | | | | SHOCKTHERAPY ENERGY^MDT | | | | | - 41 556343^MDT PROG | | | | | TACHY ZONE THERAPIES 6 | | | | | SEQUENCEID^MDT - | | | | | 6 957889^MDT PROG | | | | | TACHY ZONE THERAPIES 6 | | | | | STATUS^MDT - | | | | | 289450^[facility]_IDC_ENUM_ZONE | | | | | _STATUS_Active^[facility] 10 | | | | | 1068^MDT PROG TACHY ZONE | | | | | THERAPIES 6 | | | | | SHOCKTHERAPY ENERGY^MDT | | | | | - 41 697630^MDT PROG | | | | | TACHY ZONE THERAPIES 7 | | | | | SEQUENCEID^MDT - | | | | | 7 238810^MDT PROG | | | | | TACHY ZONE THERAPIES 7 | | | | | STATUS^MDT - | | | | | 368511^[facility]_IDC_ENUM_ZONE | | | | | _STATUS_Active^[facility] 10 | | | | | 1069^MDT PROG TACHY ZONE | | | | | THERAPIES 7 | | | | | SHOCKTHERAPY ENERGY^MDT | | | | | - 41 462525^MDT PROG | | | | | TACHY ZONE THERAPIES 8 | | | | | SEQUENCEID^MDT - | | | | | 8 188147^MDT PROG | | | | | TACHY ZONE THERAPIES 8 | | | | | STATUS^MDT - | | | | | 767291^[facility]_IDC_ENUM_ZONE | | | | | _STATUS_Active^[facility] 10 | | | | | 1070^MDT PROG TACHY ZONE | | | | | THERAPIES 8 | | | | | SHOCKTHERAPY ENERGY^MDT | | | | | - 41 828192^MDT PROG | | | | | TACHY ZONE THERAPIES 9 | | | | | SEQUENCEID^MDT - | | | | | 9 058969^MDT PROG | | | | | TACHY ZONE THERAPIES 9 | | | | | STATUS^MDT - | | | | | 364975^[facility]_IDC_ENUM_ZONE | | | | | _STATUS_Active^[facility] 10 | | | | | 1071^MDT PROG TACHY ZONE | | | | | THERAPIES 9 | | | | | SHOCKTHERAPY ENERGY^MDT | | | | | - 41 3426294^MDT PROG | | | | | TACHY ZONE THERAPIES | | | | | SUMMARY^MDT - Burst, | | | | | 31J, 41J X | | | | | 7 134714^MDT PROG | | | | | TACHY ZONE THERAPIES 1 | | | | | SEQUENCEID^MDT - | | | | | 1 643488^MDT PROG | | | | | TACHY ZONE THERAPIES 1 | | | | | STATUS^MDT - | | | | | 797163^[facility]_IDC_ENUM_ZONE | | | | | _STATUS_Active^[facility] 10 | | | | | 0103^MDT PROG TACHY ZONE | | | | | THERAPIES 1 ATPTHERAPY | | | | | TYPE^MDT - | | | | | 680825^[facility]_IDC_ENUM_ATP_ | | | | | TYPE_Burst^[facility] 518220 | | | | | ^MDT PROG TACHY ZONE | | | | | THERAPIES 1 ATPTHERAPY | | | | | NUMBEROFSEQUENCES^MDT - | | | | | 3 141622^MDT PROG | | | | | TACHY ZONE THERAPIES 2 | | | | | SEQUENCEID^MDT - | | | | | 2 559242^MDT PROG | | | | | TACHY ZONE THERAPIES 2 | | | | | STATUS^MDT - | | | | | 836387^[facility]_IDC_ENUM_ZONE | | | | | _STATUS_Active^[facility] 10 | | | | | 0104^MDT PROG TACHY ZONE | | | | | THERAPIES 2 ATPTHERAPY | | | | | TYPE^MDT - | | | | | 610640^[facility]_IDC_ENUM_ATP_ | | | | | TYPE_BurstScan^[facility] 10 | | | | | 0324^MDT PROG TACHY ZONE | | | | | THERAPIES 2 ATPTHERAPY | | | | | NUMBEROFSEQUENCES^MDT - | | | | | 3 519422^MDT PROG | | | | | TACHY ZONE THERAPIES 3 | | | | | SEQUENCEID^MDT - | | | | | 3 024369^MDT PROG | | | | | TACHY ZONE THERAPIES 3 | | | | | STATUS^MDT - | | | | | 349805^[facility]_IDC_ENUM_ZONE | | | | | _STATUS_Active^[facility] 10 | | | | | 1065^MDT PROG TACHY ZONE | | | | | THERAPIES 3 | | | | | SHOCKTHERAPY ENERGY^MDT | | | | | - 31 548129^MDT PROG | | | | | TACHY ZONE THERAPIES 4 | | | | | SEQUENCEID^MDT - | | | | | 4 719060^MDT PROG | | | | | TACHY ZONE THERAPIES 4 | | | | | STATUS^MDT - | | | | | 274142^[facility]_IDC_ENUM_ZONE | | | | | _STATUS_Active^[facility] 10 | | | | | 1066^MDT PROG TACHY ZONE | | | | | THERAPIES 4 | | | | | SHOCKTHERAPY ENERGY^MDT | | | | | - 41 192048^MDT PROG | | | | | TACHY ZONE THERAPIES 5 | | | | | SEQUENCEID^MDT - | | | | | 5 068334^MDT PROG | | | | | TACHY ZONE THERAPIES 5 | | | | | STATUS^MDT - | | | | | 758281^[facility]_IDC_ENUM_ZONE | | | | | _STATUS_Active^[facility] 10 | | | | | 1067^MDT PROG TACHY ZONE | | | | | THERAPIES 5 | | | | | SHOCKTHERAPY ENERGY^MDT | | | | | - 41 583878^MDT PROG | | | | | TACHY ZONE THERAPIES 6 | | | | | SEQUENCEID^MDT - | | | | | 6 222615^MDT PROG | | | | | TACHY ZONE THERAPIES 6 | | | | | STATUS^MDT - | | | | | 061764^[facility]_IDC_ENUM_ZONE | | | | | _STATUS_Active^[facility] 10 | | | | | 1068^MDT PROG TACHY ZONE | | | | | THERAPIES 6 | | | | | SHOCKTHERAPY ENERGY^MDT | | | | | - 41 714346^MDT PROG | | | | | TACHY ZONE THERAPIES 7 | | | | | SEQUENCEID^MDT - | | | | | 7 771066^MDT PROG | | | | | TACHY ZONE THERAPIES 7 | | | | | STATUS^MDT - | | | | | 952508^[facility]C_IDC_ENUM_ZONE | | | | | _STATUS_Active^[facility]C 10 | | | | | 1069^MDT PROG TACHY ZONE | | | | | THERAPIES 7 | | | | | SHOCKTHERAPY ENERGY^MDT | | | | | - 41 229558^MDT PROG | | | | | TACHY ZONE THERAPIES 8 | | | | | SEQUENCEID^MDT - | | | | | 8 283678^MDT PROG | | | | | TACHY ZONE THERAPIES 8 | | | | | STATUS^MDT - | | | | | 363211^MDC_IDC_ENUM_ZONE | | | | | _STATUS_Active^MDC 10 | | | | | 1070^MDT PROG TACHY ZONE | | | | | THERAPIES 8 | | | | | SHOCKTHERAPY ENERGY^MDT | | | | | - 41 7579742^MDT PROG | | | | | TACHY ZONE THERAPIES | | | | | SUMMARY^MDT - Burst(3), | | | | | Burst Scan(3), 31J, 41J | | | | | X 5 | | | + + + + + | Lead Channel | 409Comment: 6441458^MDT | ohm | PACEART | | Impedance Value | STAT LEADS | | | | | LOWPOWERCHANNEL RA | | | | | IMPEDANCE STARTDATE^MDT | | | | | - | | | | | [id number]+0000 1 | | | | | 139291^MDT STAT LEADS | | | | | LOWPOWERCHANNEL RA | | | | | IMPEDANCE ENDDATE^MDT - | | | | | [id number]+0000 1 | | | | | 834471^MDT STAT LEADS | | | | | LOWPOWERCHANNEL RA | | | | | IMPEDANCE POLARITY^MDT - | | | | | | | | | | 653029^MDC_IDC_ENUM_POLA | | | | | RITY_BI^[facility] 1803132^M | | | | | DT STAT LEADS | | | | | LOWPOWERCHANNEL RA | | | | | SENSITIVITIES MEAN | | | | | VALUE^MDT - | | | | | 0.8 9258571^MDT STAT | | | | | LEADS LOWPOWERCHANNEL RA | | | | | SENSITIVITIES | | | | | STARTDATE^MDT - | | | | | [id number]+0000 1 | | | | | 383379^MDT STAT LEADS | | | | | LOWPOWERCHANNEL RA | | | | | SENSITIVITIES | | | | | ENDDATE^MDT - | | | | | [id number]+0000 1 | | | | | 280313^MDT STAT LEADS | | | | | LOWPOWERCHANNEL RA | | | | | SENSITIVITIES | | | | | POLARITY^MDT - | | | | | 622372^MDC_IDC_ENUM_POLA | | | | | RITY_BI^MDC | | | + + + + + | Lead Channel Pacing | 5.0 | V | PACEART | | Threshold Amplitude | | | | + + + + + | Lead Channel Pacing | 1.5Comment: 3503418^MDT | ms | PACEART | | Threshold Pulse | STAT LEADS | | | | Width | LOWPOWERCHANNEL RA | | | | | CAPTURES STARTDATE^MDT - | | | | | | | | | | + | | | | | 039047^MDT STAT LEADS | | | | | LOWPOWERCHANNEL RA | | | | | CAPTURES ENDDATE^MDT - | | | | | + | | | | | 787407^MDT STAT LEADS | | | | | LOWPOWERCHANNEL RA | | | | | CAPTURES METHOD^MDT - | | | | | INSTRUMENT_INITIATED | | | | | 2476794^MDT STAT LEADS | | | | | LOWPOWERCHANNEL RA | | | | | CAPTURES POLARITY^MDT - | | | | | 081447^MDC_IDC_ENUM_POLA | | | | | RITY_BI^MDC | | | + + + + + | Lead Channel | 494Comment: 9318471^MDT | ohm | PACEART | | Impedance Value | STAT LEADS | | | | | LOWPOWERCHANNEL RV | | | | | IMPEDANCE STARTDATE^MDT | | | | | - | | | | | | | | | | 273492^MDT STAT LEADS | | | | | LOWPOWERCHANNEL RV | | | | | IMPEDANCE ENDDATE^MDT - | | | | | | | | | | 662809^MDT STAT LEADS | | | | | LOWPOWERCHANNEL RV | | | | | IMPEDANCE POLARITY^MDT - | | | | | | | | | | 254582^MDC_IDC_ENUM_POLA | | | | | RITY_BI^MDC 0944125^M | | | | | DT STAT LEADS | | | | | LOWPOWERCHANNEL RV | | | | | SENSITIVITIES MEAN | | | | | VALUE^MDT - | | | | | 11.1 1105616^MDT STAT | | | | | LEADS LOWPOWERCHANNEL | | | | | RV SENSITIVITIES | | | | | STARTDATE^MDT - | | | | | +0000 | | | | | 139411^MDT STAT LEADS | | | | | LOWPOWERCHANNEL RV | | | | | SENSITIVITIES | | | | | ENDDATE^MDT - | | | | | +0000 | | | | | 309182^MDT STAT LEADS | | | | | LOWPOWERCHANNEL RV | | | | | SENSITIVITIES | | | | | POLARITY^MDT - | | | | | 640376^MDC_IDC_ENUM_POLA | | | | | RITY_BI^MDC | | | + + + + + | Lead Channel Pacing | 0.7 | V | PACEART | | Threshold Amplitude | | | | + + + + + | Lead Channel Pacing | 0.5Comment: 4957458^MDT | ms | PACEART | | Threshold Pulse | STAT LEADS | | | | Width | LOWPOWERCHANNEL RV | | | | | CAPTURES STARTDATE^MDT - | | | | | | | | | | +0000 1 | | | | | 327361^MDT STAT LEADS | | | | | LOWPOWERCHANNEL RV | | | | | CAPTURES ENDDATE^MDT - | | | | | +0000 1 | | | | | 722072^MDT STAT LEADS | | | | | LOWPOWERCHANNEL RV | | | | | CAPTURES METHOD^MDT - | | | | | INSTRUMENT_INITIATED | | | | | 4726528^MDT STAT LEADS | | | | | LOWPOWERCHANNEL RV | | | | | CAPTURES POLARITY^MDT - | | | | | 070911^MDC_IDC_ENUM_POLA | | | | | RITY_BI^MDC 8959094^M | | | | | DT STAT LEADS | | | | | HIGHPOWERCHANNEL | | | | | IMPEDANCES MEASURED | | | | | VALUE^MDT - | | | | | 59 0570144^MDT STAT | | | | | LEADS HIGHPOWERCHANNEL | | | | | IMPEDANCES STARTDATE^MDT | | | | | - | | | | | +0000 | | | + + + + + | Battery Date Time of | [id number]+0000 | | PACEART | | Measurements | [...] + + + | Capacitor Last | [id number]+0000 | | PACEART | | Charge Date Time | | | | + + + + + | Capacitor Charge | 9.4 | s | PACEART | | Time | | | | + + + + + | Capacitor Charge | MDC_IDC_ENUM_CHARGE_TYPE | | PACEART | | Type | _Shock | | | + + + + + | Capacitor Last | [id number]+0000 | | PACEART | | Charge Date [...] + + | Tom Statistic Date | [id number]+0000 | | PACEART | | Time Start | | | | + + + + + | Tom Statistic Date | [id number]+0000 | | PACEART | | Time End [...] + + + | Therapy Statistic | [id number]+0000 | | PACEART | | Recent Date Time | | | | | Start | | | | + + + + + | Therapy Statistic | [id number]+0000 | | PACEART | | Recent Date [...] + + + | Therapy Statistic | [id number]+0000 | | PACEART | | Total Date [...] PACEART | | Vendor Type Category | [id number] | | | + + + + + | Episode Statistic | | | PACEART | | Recent Date [...] + + + | Episode Statistic | [id number]+0000 | | PACEART | | Recent Date Time End | | | | + + + + + | Episode Statistic | [id number]+0000 | | PACEART | | Recent Date Time | | | | | Start | | | | + + + + + | Episode Statistic | [id number]+0000 | | PACEART | | Recent Date Time End | | | | + + + + + | Episode Identifier | [id number] (A) | | PACEART | + + + + + | Episode Type | MDC_IDC_ENUM_EPISODE_TYP | | PACEART | | Category | E_Epis_PeriodicEGM | | | + + + + + | Episode Date Time | [id number]+0000Comme | | PACEART | | | nt: [id number]^MDT | | | | | EVALUATION | | | | | DEPENDENCY^MDT - | | | | | NO 3720529^MDT | | | | | EVALUATION RHYTHM^MDT - | | | | | AsVs | | | | | 85bpm 4659307^MDT | | | | | EVALUATION | | | | | MISCELLANEOUSCOMMENT^MDT | | | | | - ICD REMOTE | | | | | INTERROGATION REPORT | | | | | Name: | | | | | Yuliana LamaP: | | | | | Roxana White: | | | | | 1940MRN: | | | | | [id number] | | | | | cardiology provider: | | | | | Tres Umanaimary | | | | | electrophysiology | | | | | provider: None | | | | | | | | | | | | | | | 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
--- OUTSIDE RECORDS SUMMARY | ~2017-12-26 | XMS | Clinical Summary ---
Demographics + + + | Address | [address] | | | [place] [address] | + + + | Home Phone | | + + + | Preferred Language | Unknown | + + + | Marital Status | | + + + | Mosque Affiliation | 1041 | + + + | Race | Unknown | + + + | Ethnic Group | Unknown | + + + Author + + + | Author | [employer] [facility] | + + + | Organization | [facility] | + + + | Address | Unknown | + + + | Phone | Unavailable | + + + Support + + +---------+ + | Name | Relationship | Address | Phone | + + +---------+ + | Kamila Jackson | ECON | Unknown | | + + +---------+ + | Marhta Montenegro | ECON | Unknown | | + + +---------+ + Care Team Providers + +------+ + | Care Operational Assistant Name | Role | Phone | [...] + + + + + | Overview: ToolWire | | Telogen model E110, serial number [id number] | + + Encounters +--------+ + + [...] + + + | Date Time | [id number] | | [place] | | Interrogation | | | | | Session | | | | + + + + + | Implantable Pulse | MDC_IDC_ENUM_MFG_BSX | | PACEART | | Generator | | | | | Rehabilitation Teacher | | | | + + + + + | Implantable Pulse | E110 TELIGEN 100 | | PACEART | | Generator Model | | | | + + + + + | Implantable Pulse | [id number] | | PACEART | | Generator Serial [...] | Guidant | | PACEART | | Rehabilitation Teacher | | | | + + + + + | Implantable Lead | [id number] | | PACEART | | Model | | | | + + + + + | Implantable Lead | [id number] | | PACEART | | Serial Number | | | | + + + + + | Implantable Lead | [id number] | | PACEART | | Implant Date | | | | + + + + + | Implantable Lead | MDC_IDC_ENUM_LEAD_LOCATI | | PACEART | | Location | ON_CHAMBER_RV | | | + + + + + | Implantable Lead | Guidant | | PACEART | | Rehabilitation Teacher | | | | + + + + + | Implantable Lead | FINELINE II EZ Sterox | | PACEART | | Model | [id number] | | | + + + + + | Implantable Lead | [id number] | | PACEART | | Serial Number | | | | + + + + + | Implantable Lead | [id number] | | PACEART | | Implant Date [...] _TYPE_BSX-Zone_VFComment | | | | | : 839482^GEMA WALL | | | | | ZONE [...] _TYPE_BSX-Zone_VTComment | | | | | : 367562^MDT PROG TACHY | | | | | ZONE DETECTIONS | | | | | STATUS^MDT - ENABLED | | | + + + + + | Zone Setting | 316Comment: 432185^MDT | ms | PACEART | | Detection Interval | PROG TACHY ZONE | | | | | THERAPIES 1 | | | | | SEQUENCEID^MDT - | | | | | 1 090466^MDT PROG | | | | | TACHY ZONE THERAPIES 1 | | | | | STATUS^MDT - | | | | | 451261^MDC_IDC_ENUM_ZONE | | | | | _STATUS_Active^MDC 10 | | | | | 0103^MDT PROG TACHY ZONE | | | | | THERAPIES 1 ATPTHERAPY | | | | | TYPE^MDT - | | | | | 628829^MDC_IDC_ENUM_ATP_ | | | | | TYPE_Burst^MDC 833385 | | | | | ^MDT PROG TACHY ZONE | | | | | THERAPIES 1 ATPTHERAPY | | | | | NUMBEROFSEQUENCES^MDT - | | | | | 1 643670^MDT PROG | | | | | TACHY ZONE THERAPIES 2 | | | | | SEQUENCEID^MDT - | | | | | 2 500351^MDT PROG | | | | | TACHY ZONE THERAPIES 2 | | | | | STATUS^MDT - | | | | | 445167^[facility]_ENUM_ZONE | | | | | _STATUS_Active^[facility] 10 | | | | | 1064^MDT PROG TACHY ZONE | | | | | THERAPIES 2 | | | | | SHOCKTHERAPY ENERGY^MDT | | | | | - 31 202065^MDT PROG | | | | | TACHY ZONE THERAPIES 3 | | | | | SEQUENCEID^MDT - | | | | | 3 631772^MDT PROG | | | | | TACHY ZONE THERAPIES 3 | | | | | STATUS^MDT - | | | | | 154773^[facility]IDC_ENUM_ZONE | | | | | _STATUS_Active^[facility] 10 | | | | | 1065^MDT PROG TACHY ZONE | | | | | THERAPIES 3 | | | | | SHOCKTHERAPY ENERGY^MDT | | | | | - 41 266177^MDT PROG | | | | | TACHY ZONE THERAPIES 4 | | | | | SEQUENCEID^MDT - | | | | | 4 240695^MDT PROG | | | | | TACHY ZONE THERAPIES 4 | | | | | STATUS^MDT - | | | | | 003353^[facility]IDC_ENUM_ZONE | | | | | _STATUS_Active^[facility] 10 | | | | | 1066^MDT PROG TACHY ZONE | | | | | THERAPIES 4 | | | | | SHOCKTHERAPY ENERGY^MDT | | | | | - 41 398575^MDT PROG | | | | | TACHY ZONE THERAPIES 5 | | | | | SEQUENCEID^MDT - | | | | | 5 393430^MDT PROG | | | | | TACHY ZONE THERAPIES 5 | | | | | STATUS^MDT - | | | | | 502908^[facility]IDC_ENUM_ZONE | | | | | _STATUS_Active^[facility] | | | | | 1067^MDT PROG TACHY ZONE | | | | | THERAPIES 5 | | | | | SHOCKTHERAPY ENERGY^MDT | | | | | - 41 887286^MDT PROG | | | | | TACHY ZONE THERAPIES 6 | | | | | SEQUENCEID^MDT - | | | | | 6 009285^MDT PROG | | | | | TACHY ZONE THERAPIES 6 | | | | | STATUS^MDT - | | | | | 351655^[facility]IDC_ENUM_ZONE | | | | | _STATUS_Active^[facility] | | | | | 1068^MDT PROG TACHY ZONE | | | | | THERAPIES 6 | | | | | SHOCKTHERAPY ENERGY^MDT | | | | | - 41 641922^MDT PROG | | | | | TACHY ZONE THERAPIES 7 | | | | | SEQUENCEID^MDT - | | | | | 7 686294^MDT PROG | | | | | TACHY ZONE THERAPIES 7 | | | | | STATUS^MDT - | | | | | 529951^[facility]IDC_ENUM_ZONE | | | | | _STATUS_Active^[facility] | | | | | 1069^MDT PROG TACHY ZONE | | | | | THERAPIES 7 | | | | | SHOCKTHERAPY ENERGY^MDT | | | | | - 41 693697^MDT PROG | | | | | TACHY ZONE THERAPIES 8 | | | | | SEQUENCEID^MDT - | | | | | 8 701727^MDT PROG | | | | | TACHY ZONE THERAPIES 8 | | | | | STATUS^MDT - | | | | | 848539^[facility]IDC_ENUM_ZONE | | | | | _STATUS_Active^[facility] | | | | | 1070^MDT PROG TACHY ZONE | | | | | THERAPIES 8 | | | | | SHOCKTHERAPY ENERGY^MDT | | | | | - 41 552906^MDT PROG | | | | | TACHY ZONE THERAPIES 9 | | | | | SEQUENCEID^MDT - | | | | | 9 650909^MDT PROG | | | | | TACHY ZONE THERAPIES 9 | | | | | STATUS^MDT - | | | | | 842559^[facility]IDC_ENUM_ZONE | | | | | _STATUS_Active^[facility] | | | | | 1071^MDT PROG TACHY ZONE | | | | | THERAPIES 9 | | | | | SHOCKTHERAPY ENERGY^MDT | | | | | - 41 7717638^MDT PROG | | | | | TACHY ZONE THERAPIES | | | | | SUMMARY^MDT - Burst, | | | | | 31J, 41J X | | | | | 7 082122^MDT PROG | | | | | TACHY ZONE THERAPIES 1 | | | | | SEQUENCEID^MDT - | | | | | 1 212784^MDT PROG | | | | | TACHY ZONE THERAPIES 1 | | | | | STATUS^MDT - | | | | | 845431^[facility]C_ENUM_ZONE | | | | | _STATUS_Active^[facility] | | | | | 0103^MDT PROG TACHY ZONE | | | | | THERAPIES 1 ATPTHERAPY | | | | | TYPE^MDT - | | | | | 224041^[facility]IDC_ENUM_ATP_ | | | | | TYPE_Burst^[facility] 606829 | | | | | ^MDT PROG TACHY ZONE | | | | | THERAPIES 1 ATPTHERAPY | | | | | NUMBEROFSEQUENCES^MDT - | | | | | 3 554387^MDT PROG | | | | | TACHY ZONE THERAPIES 2 | | | | | SEQUENCEID^MDT - | | | | | 2 722735^MDT PROG | | | | | TACHY ZONE THERAPIES 2 | | | | | STATUS^MDT - | | | | | 945263^[facility]IDC_ENUM_ZONE | | | | | _STATUS_Active^[facility] | | | | | 0104^MDT PROG TACHY ZONE | | | | | THERAPIES 2 ATPTHERAPY | | | | | TYPE^MDT - | | | | | 724344^[facility]IDC_ENUM_ATP_ | | | | | TYPE_BurstScan^[facility] | | | | | 0324^MDT PROG TACHY ZONE | | | | | THERAPIES 2 ATPTHERAPY | | | | | NUMBEROFSEQUENCES^MDT - | | | | | 3 202802^MDT PROG | | | | | TACHY ZONE THERAPIES 3 | | | | | SEQUENCEID^MDT - | | | | | 3 777464^MDT PROG | | | | | TACHY ZONE THERAPIES 3 | | | | | STATUS^MDT - | | | | | 036644^[facility]IDC_ENUM_ZONE | | | | | _STATUS_Active^[facility] | | | | | 1065^MDT PROG TACHY ZONE | | | | | THERAPIES 3 | | | | | SHOCKTHERAPY ENERGY^MDT | | | | | - 31 839384^MDT PROG | | | | | TACHY ZONE THERAPIES 4 | | | | | SEQUENCEID^MDT - | | | | | 4 614594^MDT PROG | | | | | TACHY ZONE THERAPIES 4 | | | | | STATUS^MDT - | | | | | 208713^[facility]IDC_ENUM_ZONE | | | | | _STATUS_Active^[facility] | | | | | 1066^MDT PROG TACHY ZONE | | | | | THERAPIES 4 | | | | | SHOCKTHERAPY ENERGY^MDT | | | | | - 41 423720^MDT PROG | | | | | TACHY ZONE THERAPIES 5 | | | | | SEQUENCEID^MDT - | | | | | 5 966933^MDT PROG | | | | | TACHY ZONE THERAPIES 5 | | | | | STATUS^MDT - | | | | | 331876^[facility]IDC_ENUM_ZONE | | | | | _STATUS_Active^[facility] | | | | | 1067^MDT PROG TACHY ZONE | | | | | THERAPIES 5 | | | | | SHOCKTHERAPY ENERGY^MDT | | | | | - 41 771859^MDT PROG | | | | | TACHY ZONE THERAPIES 6 | | | | | SEQUENCEID^MDT - | | | | | 6 246296^MDT PROG | | | | | TACHY ZONE THERAPIES 6 | | | | | STATUS^MDT - | | | | | 481918^[facility]_IDC_ENUM_ZONE | | | | | _STATUS_Active^[facility] | | | | | 1068^MDT PROG TACHY ZONE | | | | | THERAPIES 6 | | | | | SHOCKTHERAPY ENERGY^MDT | | | | | - 41 775286^MDT PROG | | | | | TACHY ZONE THERAPIES 7 | | | | | SEQUENCEID^MDT - | | | | | 7 233041^MDT PROG | | | | | TACHY ZONE THERAPIES 7 | | | | | STATUS^MDT - | | | | | 358904^MDC_IDC_ENUM_ZONE | | | | | _STATUS_Active^MDC 10 | | | | | 1069^MDT PROG TACHY ZONE | | | | | THERAPIES 7 | | | | | SHOCKTHERAPY ENERGY^MDT | | | | | - 41 841917^MDT PROG | | | | | TACHY ZONE THERAPIES 8 | | | | | SEQUENCEID^MDT - | | | | | 8 683302^MDT PROG | | | | | TACHY ZONE THERAPIES 8 | | | | | STATUS^MDT - | | | | | 927325^MDC_IDC_ENUM_ZONE | | | | | _STATUS_Active^MDC 10 | | | | | 1070^MDT PROG TACHY ZONE | | | | | THERAPIES 8 | | | | | SHOCKTHERAPY ENERGY^MDT | | | | | - 41 0444157^MDT PROG | | | | | TACHY ZONE THERAPIES | | | | | SUMMARY^MDT - Burst(3), | | | | | Burst Scan(3), 31J, 41J | | | | | X 5 | | | + + + + + | Lead Channel | 409Comment: 9545963^MDT | ohm | PACEART | | Impedance Value | STAT LEADS | | | | | LOWPOWERCHANNEL RA | | | | | IMPEDANCE STARTDATE^MDT | | | | | - | | | | | 18705534006556+0000 1 | | | | | 463464^MDT STAT LEADS | | | | | LOWPOWERCHANNEL RA | | | | | IMPEDANCE ENDDATE^MDT - | | | | | 09325495141717+0000 1 | | | | | 538534^MDT STAT LEADS | | | | | LOWPOWERCHANNEL RA | | | | | IMPEDANCE POLARITY^MDT - | | | | | | | | | | 638975^MDC_IDC_ENUM_POLA | | | | | RITY_BI^[facility] 3697193^M | | | | | DT STAT LEADS | | | | | LOWPOWERCHANNEL RA | | | | | SENSITIVITIES MEAN | | | | | VALUE^MDT - | | | | | 0.8 6868542^MDT STAT | | | | | LEADS LOWPOWERCHANNEL RA | | | | | SENSITIVITIES | | | | | STARTDATE^MDT - | | | | | 99380703675960+0000 1 | | | | | 327129^MDT STAT LEADS | | | | | LOWPOWERCHANNEL RA | | | | | SENSITIVITIES | | | | | ENDDATE^MDT - | | | | | 88713431331579+0000 1 | | | | | 534926^MDT STAT LEADS | | | | | LOWPOWERCHANNEL RA | | | | | SENSITIVITIES | | | | | POLARITY^MDT - | | | | | 821665^MDC_IDC_ENUM_POLA | | | | | RITY_BI^MDC | | | + + + + + | Lead Channel Pacing | 5.0 | V | PACEART | | Threshold Amplitude | | | | + + + + + | Lead Channel Pacing | 1.5Comment: 9948030^MDT | ms | PACEART | | Threshold Pulse | STAT LEADS | | | | Width | LOWPOWERCHANNEL RA | | | | | CAPTURES STARTDATE^MDT - | | | | | | | | | | + | | | | | 535803^MDT STAT LEADS | | | | | LOWPOWERCHANNEL RA | | | | | CAPTURES ENDDATE^MDT - | | | | | + | | | | | 219889^MDT STAT LEADS | | | | | LOWPOWERCHANNEL RA | | | | | CAPTURES METHOD^MDT - | | | | | INSTRUMENT_INITIATED | | | | | 4187176^MDT STAT LEADS | | | | | LOWPOWERCHANNEL RA | | | | | CAPTURES POLARITY^MDT - | | | | | 558088^MDC_IDC_ENUM_POLA | | | | | RITY_BI^MDC | | | + + + + + | Lead Channel | 494Comment: 4945566^MDT | ohm | PACEART | | Impedance Value | STAT LEADS | | | | | LOWPOWERCHANNEL RV | | | | | IMPEDANCE STARTDATE^MDT | | | | | - | | | | | | | | | | 918738^MDT STAT LEADS | | | | | LOWPOWERCHANNEL RV | | | | | IMPEDANCE ENDDATE^MDT - | | | | | | | | | | 645278^MDT STAT LEADS | | | | | LOWPOWERCHANNEL RV | | | | | IMPEDANCE POLARITY^MDT - | | | | | | | | | | 756984^MDC_IDC_ENUM_POLA | | | | | RITY_BI^MDC 3339392^M | | | | | DT STAT LEADS | | | | | LOWPOWERCHANNEL RV | | | | | SENSITIVITIES MEAN | | | | | VALUE^MDT - | | | | | 11.1 4450578^MDT STAT | | | | | LEADS LOWPOWERCHANNEL | | | | | RV SENSITIVITIES | | | | | STARTDATE^MDT - | | | | | +0000 | | | | | 584360^MDT STAT LEADS | | | | | LOWPOWERCHANNEL RV | | | | | SENSITIVITIES | | | | | ENDDATE^MDT - | | | | | +0000 | | | | | 173516^MDT STAT LEADS | | | | | LOWPOWERCHANNEL RV | | | | | SENSITIVITIES | | | | | POLARITY^MDT - | | | | | 030581^MDC_IDC_ENUM_POLA | | | | | RITY_BI^MDC | | | + + + + + | Lead Channel Pacing | 0.7 | V | PACEART | | Threshold Amplitude | | | | + + + + + | Lead Channel Pacing | 0.5Comment: 1507603^MDT | ms | PACEART | | Threshold Pulse | STAT LEADS | | | | Width | LOWPOWERCHANNEL RV | | | | | CAPTURES STARTDATE^MDT - | | | | | | | | | | +0000 1 | | | | | 160428^MDT STAT LEADS | | | | | LOWPOWERCHANNEL RV | | | | | CAPTURES ENDDATE^MDT - | | | | | +0000 1 | | | | | 102498^MDT STAT LEADS | | | | | LOWPOWERCHANNEL RV | | | | | CAPTURES METHOD^MDT - | | | | | INSTRUMENT_INITIATED | | | | | 1906055^MDT STAT LEADS | | | | | LOWPOWERCHANNEL RV | | | | | CAPTURES POLARITY^MDT - | | | | | 758716^MDC_IDC_ENUM_POLA | | | | | RITY_BI^MDC 4346643^M | | | | | DT STAT LEADS | | | | | HIGHPOWERCHANNEL | | | | | IMPEDANCES MEASURED | | | | | VALUE^MDT - | | | | | 59 6779739^MDT STAT | | | | | LEADS HIGHPOWERCHANNEL | | | | | IMPEDANCES STARTDATE^MDT | | | | | - | | | | | +0000 | | | + + + + + | Battery Date Time of | [id number]+0000 | | PACEART | | Measurements | [...] + + + | Capacitor Last | [id number]+0000 | | PACEART | | Charge Date Time | | | | + + + + + | Capacitor Charge | 9.4 | s | PACEART | | Time | | | | + + + + + | Capacitor Charge | MDC_IDC_ENUM_CHARGE_TYPE | | PACEART | | Type | _Shock | | | + + + + + | Capacitor Last | [id number]+0000 | | PACEART | | Charge Date Time | | | | + + + + + | Capacitor Charge | 3.7 | s | PACEART | | Time | | | | + + + + + | Capacitor Charge | 21 | J | PACEART | | Energy | | | | + + + + + | Tmo Statistic Date | [id number]+0000 | | PACEART | | Time Start | | | | + + + + + | Tom Statistic Date | [id number]+0000 | | PACEART | | Time End [...] + + + | Therapy Statistic | [id number]+0000 | | PACEART | | Recent Date Time | | | | | Start | | | | + + + + + | Therapy Statistic | [id number]+0000 | | PACEART | | Recent Date [...] + + + | Therapy Statistic | [id number]+0000 | | PACEART | | Total Date [...] PACEART | | Vendor Type Category | [id number]_TY-4 | | | + + + + [...] + + + | Episode Statistic | [id number]+0000 | | PACEART | | Recent Date Time End | | | | + + + + + | Episode Statistic | [id number]+0000 | | PACEART | | Recent Date Time | | | | | Start | | | | + + + + + | Episode Statistic | [id number]+0000 | | PACEART | | Recent Date Time End | | | | + + + + + | Episode Identifier | [id number] (A) | | PACEART | + + + + + | Episode Type | MDC_IDC_ENUM_EPISODE_TYP | | PACEART | | Category | E_Epis_PeriodicEGM | | | + + + + + | Episode Date Time | [id number]+0000Comme | | PACEART | | | nt: [id number]^MDT | | | | | EVALUATION | | | | | DEPENDENCY^MDT - | | | | | NO 3654130^MDT | | | | | EVALUATION RHYTHM^MDT - | | | | | AsVs | | | | | 85bpm 7494207^MDT | | | | | EVALUATION | | | | | MISCELLANEOUSCOMMENT^MDT | | | | | - ICD REMOTE | | | | | INTERROGATION REPORT | | | | | Name: | | | | | Yuliana LamaP: | | | | | Roxana White: | | | | | 1940MRN: | | | | | [id number] | | | | | cardiology provider: | | | | | Tres Umanaimary | | | | | electrophysiology | | | | | provider: None | | | | | | | | | | | | | | | 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[employer] | | | | | Device type: [...] +------+-------+ + | MEDICARE | MEDICA | [id number] | | | [address] | | | RE | | | | [place] [phone] | | | IP-OP | | | | | + +--------+ +------+-------+ + | MEDICAID | MEDICA | [id number] | | | [address] | | | [place] | | | | [place] | | | [place] | | | | [phone] | + +--------+ +------+-------+ + | /NATIVE HEALTH | YELLOW | [id number] | | | | | PLANS | [place] | | | | | + +--------+ +------+-------+ + + +--------+ +--------+ + + | Guarantor Name | Accoun | Relation to | Date | Phone | Billing Address | | | t Type | Patient | of | | | | | | | | | | + +--------+ +--------+ + + | YULIAAN GALINDO | Person | Self [birth year] Home: | [address] | | | al/Gael | | 1941 | [phone] | [place] [address] | | | shavon | | | [phone] | | + +--------+ +--------+ + +
--- OUTSIDE RECORDS SUMMARY | ~2017-12-26 | XMS | Clinical Summary ---
Demographics + + + | Address | [address] | | | [place] [address] | + + + | Home Phone | | + + + | Preferred Language | Unknown | + + + | Marital Status | | + + + | Latter Day Affiliation | 1041 | + + + | Race | Unknown | + + + | Ethnic Group | Unknown | + + + Author + + + | Author | [facility] | | | and [place] | + + + | Organization | [facility] | | | and [place] | + + + | Address | Unknown | + + + | Phone | Unavailable | + + + Care Team Providers + +------+ + | Care Training Professional Name | Role | Phone | [...] +--------+ +---------+ | MEDICARE | MEDICA | [id number] | Medica | [phone] | | | RE | | re | [phone] | | | | PART A | | | | | | | AND B | | | | | + +--------+ +--------+ +---------+ | [facility] | [employer] | [phone] | Indemn | | | | SERVICE [...] | Self [birth year] | Home: | [address] | | | al/Fam | | 1941 | [phone] | [place] [address] | | | shavon | | | [phone] | | + +--------+ +--------+ + +
--- OUTSIDE RECORDS SUMMARY | ~2017-12-26 | XMS | Encounter Summary ---
Demographics + + + | Address | [address] | | | [place] [address] | + + + | Home Phone | | + + + | Preferred Language | Unknown | + + + | Marital Status | | + + + | Sabianist Affiliation | 1041 | + + + | Race | Unknown | + + + | Ethnic Group | Unknown | + + + Author + + + | Author | [facility] [employer] [facility] | + + + | Organization | [facility] | + + + [...] Providers + +------+ + | Care Customer Field Representative Name | Role | Phone | + +------+ + | Roxana Barajas PA-C | PCP | | + +------+ + Encounter Details +--------+ + + + + | Date | Type | Department | Care Team | Description | +--------+ + + + + | 12/20/ | Orders Only | [facility] | Adore Crooks, YUE | | | 2018 | | Cardiology [place] | [address] | | | | | [address] | [place], [place] | | | | | [place], [place] | [address] | | | | | [address] | | | | | | [phone] | | | +--------+ + + + [...] + + + | Date Time | [id number] | | PACEART | | Interrogation | | | | | Session | | | | + + + + + | Implantable Pulse | MDC_IDC_ENUM_MFG_BSX | | PACEART | | Generator | | | | | Certified Medical Aide | | | | + + + + + | Implantable Pulse | E110 TELIGEN 100 | | PACEART | | Generator Model | | | | + + + + + | Implantable Pulse | [id number] | | PACEART | | Generator Serial [...] + + + | Implantable Pulse | [id number] | | PACEART | | Generator Implant | | | | | Date | | | | + + + + + | Implantable Lead | Guidant | | PACEART | | Certified Medical Aide | | | | + + + + + | Implantable Lead | [id number] | | PACEART | | Model | | | | + + + + + | Implantable Lead | [id number] | | PACEART | | Serial Number | | | | + + + + + | Implantable Lead | [id number] | | PACEART | | Implant Date | | | | + + + + + | Implantable Lead | MDC_IDC_ENUM_LEAD_LOCATI | | PACEART | | Location | ON_CHAMBER_RV | | | + + + + + | Implantable Lead | Guidant | | PACEART | | Certified Medical Aide | | | | + + + + + | Implantable Lead | FINELINE II EZ Sterox | | PACEART | | Model | [id number] | | | + + + + + | Implantable Lead | [id number] | | PACEART | | Serial Number | | | | + + + + + | Implantable Lead | [id number] | | PACEART | | Implant Date [...] _TYPE_BSX-Zone_VFComment | | | | | : 905112^MDT PROG TACHY | | | | | [...] _TYPE_BSX-Zone_VTComment | | | | | : 522698^MDT PROG TACHY | | | | | ZONE DETECTIONS | | | | | STATUS^MDT - ENABLED | | | + + + + + | Zone Setting | 316Comment: 717520^MDT | ms | PACEART | | Detection Interval | PROG TACHY ZONE | | | | | THERAPIES 1 | | | | | SEQUENCEID^MDT - | | | | | 1 262759^MDT PROG | | | | | TACHY ZONE THERAPIES 1 | | | | | STATUS^MDT - | | | | | 646669^MDC_IDC_ENUM_ZONE | | | | | _STATUS_Active^MDC 10 | | | | | 0103^MDT PROG TACHY ZONE | | | | | THERAPIES 1 ATPTHERAPY | | | | | TYPE^MDT - | | | | | 471133^MDC_IDC_ENUM_ATP_ | | | | | TYPE_Burst^MDC 589850 | | | | | ^MDT PROG TACHY ZONE | | | | | THERAPIES 1 ATPTHERAPY | | | | | NUMBEROFSEQUENCES^MDT - | | | | | 1 670068^MDT PROG | | | | | TACHY ZONE THERAPIES 2 | | | | | SEQUENCEID^MDT - | | | | | 2 537005^MDT PROG | | | | | TACHY ZONE THERAPIES 2 | | | | | STATUS^MDT - | | | | | 695029^[facility]UM[place]ZONE | | | | | _STATUS_Active^[facility] | | | | | 1064^MDT PROG TACHY ZONE | | | | | THERAPIES 2 | | | | | SHOCKTHERAPY ENERGY^MDT | | | | | - 31 916969^MDT PROG | | | | | TACHY ZONE THERAPIES 3 | | | | | SEQUENCEID^MDT - | | | | | 3 517150^MDT PROG | | | | | TACHY ZONE THERAPIES 3 | | | | | STATUS^MDT - | | | | | 712678^[facility]ENUM_ZONE | | | | | _STATUS_Active^[facility] | | | | | 1065^MDT PROG TACHY ZONE | | | | | THERAPIES 3 | | | | | SHOCKTHERAPY ENERGY^MDT | | | | | - 41 297093^MDT PROG | | | | | TACHY ZONE THERAPIES 4 | | | | | SEQUENCEID^MDT - | | | | | 4 797218^MDT PROG | | | | | TACHY ZONE THERAPIES 4 | | | | | STATUS^MDT - | | | | | 887790^[facility]_ENUM_ZONE | | | | | _STATUS_Active^[facility] | | | | | 1066^MDT PROG TACHY ZONE | | | | | THERAPIES 4 | | | | | SHOCKTHERAPY ENERGY^MDT | | | | | - 41 527921^MDT PROG | | | | | TACHY ZONE THERAPIES 5 | | | | | SEQUENCEID^MDT - | | | | | 5 114984^MDT PROG | | | | | TACHY ZONE THERAPIES 5 | | | | | STATUS^MDT - | | | | | 731897^[facility]ENUM[facility]ZONE | | | | | _STATUS_Active^[facility] | | | | | 1067^MDT PROG TACHY ZONE | | | | | THERAPIES 5 | | | | | SHOCKTHERAPY ENERGY^MDT | | | | | - 41 405842^MDT PROG | | | | | TACHY ZONE THERAPIES 6 | | | | | SEQUENCEID^MDT - | | | | | 6 943739^MDT PROG | | | | | TACHY ZONE THERAPIES 6 | | | | | STATUS^MDT - | | | | | 692476^[facility]_ENUM_ZONE | | | | | _STATUS_Active^[facility] | | | | | 1068^MDT PROG TACHY ZONE | | | | | THERAPIES 6 | | | | | SHOCKTHERAPY ENERGY^MDT | | | | | - 41 769459^MDT PROG | | | | | TACHY ZONE THERAPIES 7 | | | | | SEQUENCEID^MDT - | | | | | 7 644708^MDT PROG | | | | | TACHY ZONE THERAPIES 7 | | | | | STATUS^MDT - | | | | | 052483^[facility]_ENUM_ZONE | | | | | _STATUS_Active^[facility] | | | | | 1069^MDT PROG TACHY ZONE | | | | | THERAPIES 7 | | | | | SHOCKTHERAPY ENERGY^MDT | | | | | - 41 031146^MDT PROG | | | | | TACHY ZONE THERAPIES 8 | | | | | SEQUENCEID^MDT - | | | | | 8 585549^MDT PROG | | | | | TACHY ZONE THERAPIES 8 | | | | | STATUS^MDT - | | | | | 545315^[facility]_ENUM_ZONE | | | | | _STATUS_Active^[facility] | | | | | 1070^MDT PROG TACHY ZONE | | | | | THERAPIES 8 | | | | | SHOCKTHERAPY ENERGY^MDT | | | | | - 41 722288^MDT PROG | | | | | TACHY ZONE THERAPIES 9 | | | | | SEQUENCEID^MDT - | | | | | 9 083455^MDT PROG | | | | | TACHY ZONE THERAPIES 9 | | | | | STATUS^MDT - | | | | | 188665^[facility]_ENUM_ZONE | | | | | _STATUS_Active^[facility] | | | | | 1071^MDT PROG TACHY ZONE | | | | | THERAPIES 9 | | | | | SHOCKTHERAPY ENERGY^MDT | | | | | - 41 9640968^MDT PROG | | | | | TACHY ZONE THERAPIES | | | | | SUMMARY^MDT - Burst, | | | | | 31J, 41J X | | | | | 7 412045^MDT PROG | | | | | TACHY ZONE THERAPIES 1 | | | | | SEQUENCEID^MDT - | | | | | 1 664227^MDT PROG | | | | | TACHY ZONE THERAPIES 1 | | | | | STATUS^MDT - | | | | | 910187^[facility]_ENUM_ZONE | | | | | _STATUS_Active^[facility] | | | | | 0103^MDT PROG TACHY ZONE | | | | | THERAPIES 1 ATPTHERAPY | | | | | TYPE^MDT - | | | | | 938654^[facility]_ENUM_ATP_ | | | | | TYPE_Burst^MDC 393804 | | | | | ^MDT PROG TACHY ZONE | | | | | THERAPIES 1 ATPTHERAPY | | | | | NUMBEROFSEQUENCES^MDT - | | | | | 3 597816^MDT PROG | | | | | TACHY ZONE THERAPIES 2 | | | | | SEQUENCEID^MDT - | | | | | 2 013102^MDT PROG | | | | | TACHY ZONE THERAPIES 2 | | | | | STATUS^MDT - | | | | | 267214^[facility]_ENUM_ZONE | | | | | _STATUS_Active^[facility] | | | | | 0104^MDT PROG TACHY ZONE | | | | | THERAPIES 2 ATPTHERAPY | | | | | TYPE^MDT - | | | | | 642935^[facility]_ENUM_ATP_ | | | | | TYPE_BurstScan^[facility] | | | | | 0324^MDT PROG TACHY ZONE | | | | | THERAPIES 2 ATPTHERAPY | | | | | NUMBEROFSEQUENCES^MDT - | | | | | 3 447352^MDT PROG | | | | | TACHY ZONE THERAPIES 3 | | | | | SEQUENCEID^MDT - | | | | | 3 492027^MDT PROG | | | | | TACHY ZONE THERAPIES 3 | | | | | STATUS^MDT - | | | | | 342650^[facility]ENUM_ZONE | | | | | _STATUS_Active^[facility] | | | | | 1065^MDT PROG TACHY ZONE | | | | | THERAPIES 3 | | | | | SHOCKTHERAPY ENERGY^MDT | | | | | - 31 277636^MDT PROG | | | | | TACHY ZONE THERAPIES 4 | | | | | SEQUENCEID^MDT - | | | | | 4 941571^MDT PROG | | | | | TACHY ZONE THERAPIES 4 | | | | | STATUS^MDT - | | | | | 027038^[facility]_ENUM_ZONE | | | | | _STATUS_Active^[facility] | | | | | 1066^MDT PROG TACHY ZONE | | | | | THERAPIES 4 | | | | | SHOCKTHERAPY ENERGY^MDT | | | | | - 41 501304^MDT PROG | | | | | TACHY ZONE THERAPIES 5 | | | | | SEQUENCEID^MDT - | | | | | 5 651299^MDT PROG | | | | | TACHY ZONE THERAPIES 5 | | | | | STATUS^MDT - | | | | | 944755^[facility]_ENUM_ZONE | | | | | _STATUS_Active^[facility] | | | | | 1067^MDT PROG TACHY ZONE | | | | | THERAPIES 5 | | | | | SHOCKTHERAPY ENERGY^MDT | | | | | - 41 287777^MDT PROG | | | | | TACHY ZONE THERAPIES 6 | | | | | SEQUENCEID^MDT - | | | | | 6 793324^MDT PROG | | | | | TACHY ZONE THERAPIES 6 | | | | | STATUS^MDT - | | | | | 336433^[facility]_ENUM_ZONE | | | | | _STATUS_Active^[facility] | | | | | 1068^MDT PROG TACHY ZONE | | | | | THERAPIES 6 | | | | | SHOCKTHERAPY ENERGY^MDT | | | | | - 41 219552^MDT PROG | | | | | TACHY ZONE THERAPIES 7 | | | | | SEQUENCEID^MDT - | | | | | 7 144832^MDT PROG | | | | | TACHY ZONE THERAPIES 7 | | | | | STATUS^MDT - | | | | | 395919^MDC_IDC_ENUM_ZONE | | | | | _STATUS_Active^MDC 10 | | | | | 1069^MDT PROG TACHY ZONE | | | | | THERAPIES 7 | | | | | SHOCKTHERAPY ENERGY^MDT | | | | | - 41 365337^MDT PROG | | | | | TACHY ZONE THERAPIES 8 | | | | | SEQUENCEID^MDT - | | | | | 8 651990^MDT PROG | | | | | TACHY ZONE THERAPIES 8 | | | | | STATUS^MDT - | | | | | 652745^MDC_IDC_ENUM_ZONE | | | | | _STATUS_Active^MDC 10 | | | | | 1070^MDT PROG TACHY ZONE | | | | | THERAPIES 8 | | | | | SHOCKTHERAPY ENERGY^MDT | | | | | - 41 2045056^MDT PROG | | | | | TACHY ZONE THERAPIES | | | | | SUMMARY^MDT - Burst(3), | | | | | Burst Scan(3), 31J, 41J | | | | | X 5 | | | + + + + + | Lead Channel | 409Comment: 8730708^MDT | ohm | PACEART | | Impedance Value | STAT LEADS | | | | | LOWPOWERCHANNEL RA | | | | | IMPEDANCE STARTDATE^MDT | | | | | - | | | | | [id number]+0000 1 | | | | | 463864^MDT STAT LEADS | | | | | LOWPOWERCHANNEL RA | | | | | IMPEDANCE ENDDATE^MDT - | | | | | + | | | | | 509346^MDT STAT LEADS | | | | | LOWPOWERCHANNEL RA | | | | | IMPEDANCE POLARITY^MDT - | | | | | | | | | | 852036^MDC_IDC_ENUM_POLA | | | | | RITY_BI^MDC 7663078^M | | | | | DT STAT LEADS | | | | | LOWPOWERCHANNEL RA | | | | | SENSITIVITIES MEAN | | | | | VALUE^MDT - | | | | | 0.8 5370639^MDT STAT | | | | | LEADS LOWPOWERCHANNEL RA | | | | | SENSITIVITIES | | | | | STARTDATE^MDT - | | | | | + | | | | | 146080^MDT STAT LEADS | | | | | LOWPOWERCHANNEL RA | | | | | SENSITIVITIES | | | | | ENDDATE^MDT - | | | | | + | | | | | 024119^MDT STAT LEADS | | | | | LOWPOWERCHANNEL RA | | | | | SENSITIVITIES | | | | | POLARITY^MDT - | | | | | 875411^MDC_IDC_ENUM_POLA | | | | | RITY_BI^MDC | | | + + + + + | Lead Channel Pacing | 5.0 | V | PACEART | | Threshold Amplitude | | | | + + + + + | Lead Channel Pacing | 1.5Comment: 0217320^MDT | ms | PACEART | | Threshold Pulse | STAT LEADS | | | | Width | LOWPOWERCHANNEL RA | | | | | CAPTURES STARTDATE^MDT - | | | | | | | | | | + | | | | | 374101^MDT STAT LEADS | | | | | LOWPOWERCHANNEL RA | | | | | CAPTURES ENDDATE^MDT - | | | | | + | | | | | 090513^MDT STAT LEADS | | | | | LOWPOWERCHANNEL RA | | | | | CAPTURES METHOD^MDT - | | | | | INSTRUMENT_INITIATED | | | | | 6216562^MDT STAT LEADS | | | | | LOWPOWERCHANNEL RA | | | | | CAPTURES POLARITY^MDT - | | | | | 637951^MDC_IDC_ENUM_POLA | | | | | RITY_BI^MDC | | | + + + + + | Lead Channel | 494Comment: 5291973^MDT | ohm | PACEART | | Impedance Value | STAT LEADS | | | | | LOWPOWERCHANNEL RV | | | | | IMPEDANCE STARTDATE^MDT | | | | | - | | | | | + | | | | | 355265^MDT STAT LEADS | | | | | LOWPOWERCHANNEL RV | | | | | IMPEDANCE ENDDATE^MDT - | | | | | + | | | | | 648747^MDT STAT LEADS | | | | | LOWPOWERCHANNEL RV | | | | | IMPEDANCE POLARITY^MDT - | | | | | | | | | | 205666^MDC_IDC_ENUM_POLA | | | | | RITY_BI^MDC 2576753^M | | | | | DT STAT LEADS | | | | | LOWPOWERCHANNEL RV | | | | | SENSITIVITIES MEAN | | | | | VALUE^MDT - | | | | | 11.1 4987748^MDT STAT | | | | | LEADS LOWPOWERCHANNEL | | | | | RV SENSITIVITIES | | | | | STARTDATE^MDT - | | | | | +0000 | | | | | 991738^MDT STAT LEADS | | | | | LOWPOWERCHANNEL RV | | | | | SENSITIVITIES | | | | | ENDDATE^MDT - | | | | | + | | | | | 911380^MDT STAT LEADS | | | | | LOWPOWERCHANNEL RV | | | | | SENSITIVITIES | | | | | POLARITY^MDT - | | | | | 580833^MDC_IDC_ENUM_POLA | | | | | RITY_BI^MDC | | | + + + + + | Lead Channel Pacing | 0.7 | V | PACEART | | Threshold Amplitude | | | | + + + + + | Lead Channel Pacing | 0.5Comment: 8139283^MDT | ms | PACEART | | Threshold Pulse | STAT LEADS | | | | Width | LOWPOWERCHANNEL RV | | | | | CAPTURES STARTDATE^MDT - | | | | | | | | | | +0000 1 | | | | | 040693^MDT STAT LEADS | | | | | LOWPOWERCHANNEL RV | | | | | CAPTURES ENDDATE^MDT - | | | | | +0000 1 | | | | | 397609^MDT STAT LEADS | | | | | LOWPOWERCHANNEL RV | | | | | CAPTURES METHOD^MDT - | | | | | INSTRUMENT_INITIATED | | | | | 5688574^MDT STAT LEADS | | | | | LOWPOWERCHANNEL RV | | | | | CAPTURES POLARITY^MDT - | | | | | 032002^MDC_IDC_ENUM_POLA | | | | | RITY_BI^MDC 5785314^M | | | | | DT STAT LEADS | | | | | HIGHPOWERCHANNEL | | | | | IMPEDANCES MEASURED | | | | | VALUE^MDT - | | | | | 59 7808976^MDT STAT | | | | | LEADS [...] + + + | Capacitor Last | [id number]+0000 | | PACEART | | Charge Date Time | | | | + + + + + | Capacitor Charge | 9.4 | s | PACEART | | Time | | | | + + + + + | Capacitor Charge | MDC_IDC_ENUM_CHARGE_TYPE | | PACEART | | Type | _Shock | | | + + + + + | Capacitor Last | [id number]+0000 | | PACEART | | Charge Date [...] + + | Tom Statistic Date | [id number]+0000 | | PACEART | | Time Start | | | | + + + + + | Tom Statistic Date | [id number]+0000 | | PACEART | | Time End [...] + + + | Therapy Statistic | [id number]+0000 | | PACEART | | Recent Date Time | | | | | Start | | | | + + + + + | Therapy Statistic | [id number]+0000 | | PACEART | | Recent Date [...] + + + | Therapy Statistic | [id number]+0000 | | PACEART | | Total Date [...] PACEART | | Vendor Type Category | [id number]-0 | | | + + + + [...] + + + | Episode Statistic | [id number]+0000 | | PACEART | | Recent Date Time | | | | | Start | | | | + + + + + | Episode Statistic | [id number]+0000 | | PACEART | | Recent Date Time End | | | | + + + + + | Episode Statistic | [id number] | | PACEART | | Recent Date Time | | | | | Start | | | | + + + + + | Episode Statistic | [id number]+0000 | | PACEART | | Recent Date Time End | | | | + + + + + | Episode Statistic | [id number]+ | | PACEART | | Recent Date [...] + + | Episode Date Time | [id number]+0000Comme | | PACEART | | | nt: 2779958^MDT | | | | | EVALUATION | | | | | DEPENDENCY^MDT - | | | | | NO 3823541^MDT | | | | | EVALUATION RHYTHM^MDT - | | | | | AsVs | | | | | 85bpm 3119109^MDT | | | | | EVALUATION | | | | | MISCELLANEOUSCOMMENT^MDT | | | | | - ICD REMOTE | | | | | INTERROGATION REPORT | | | | | Name: | | | | | Yuliana Burton: | | | | | Roxana White: | | | | | 1940MRN: | | | | | [id number] | | | | | cardiology provider: | | | | | Tres Umanaimary | | | | | electrophysiology | | | | | provider: None | | | | | | | | | | | | | | | 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
[~2017-12-26 12:52] MED LIST changes: +METHYLPREDNISOLO4 M1 PO
--- NOTE | 2017-12-27 07:44 | EKG ---
[facility] [address] [place], [place] [address] Signed Normal sinus rhythm Right bundle branch block Inferior infarct , age undetermined Abnormal ECG No previous ECGs available Confirmed by SHIV LOTT MD ([id number]) on 12/27/2017 7:43:38 AM Electronically Signed By: SHIV LOTT MD 12/27/17 0744 PATIENT NAME: JUNIOR HMUPHREYS JARRET Electrocardiogram DATE OF : 36 PHYSICIAN: SHIV LOTT MD REPORT #: [id number] REPORT IS CONFIDENTIAL AND NOT TO BE RELEASED WITHOUT AUTHORIZATION
== END 2017-12-26 15:20 | disposition short-term general hospital (02) ==
LOC: ED 12:52
DX: I21.4 Non-ST elevation (NSTEMI) myocardial infarction (principal); J44.9 Chronic obstructive pulmonary disease, unspecified; F17.200 Nicotine dependence, unspecified, uncomplicated; Z79.82 Long term (current) use of aspirin; Z79.899 Other long term (current) drug therapy
CPT/HCPCS: 71045; 80053; 83880; 84484; 85025; 85610; 85730; 93005; 93010; 96374; 96375; 99291; 99292; J1170; J1644; J2270; J2405

== ENCOUNTER 2019-02-11 15:05 | Inpatient (IN) | payer MEDICARE, OTHER ==
[~2019-02-11] VITALS: Ht 160 cm; Wt 104.9 kg
--- OUTSIDE RECORDS SUMMARY | ~2019-02-11 | XMS | Encounter Summary ---
Demographics + + + | Address | [address] | | | [place] [address] | + + + | Home Phone | | + + + | Preferred Language | Unknown | + + + | Marital Status | | + + + | Quaker Affiliation | 1041 | + + + | Race | Unknown | + + + | Ethnic Group | Unknown | + + + Author + + + | Author | [employer] [facility] (Historical as of | | | 12-31-18) | + + + | Organization | [facility] (Historical as of | | | 12-31-18) | + + + | Address | Unknown | + + + | Phone | Unavailable | + + + Support + + +---------+ + | Name | Relationship | Address | Phone | + + +---------+ + | Keron Montalvo | ECON | Unknown | | | ia | | | | + + +---------+ + | Kamila Jackson | ECON | Unknown | | + + +---------+ + | Martha Montenegro | ECON | Unknown | | + + +---------+ + Care Team Providers + +------+ + | Care Mica Splitter Name | Role | Phone | + +------+ + | Roxana Barajas PA-C | PCP | | + +------+ + Encounter Details +--------+ + + + + | Date | Type | Department | Care Team | Description | +--------+ + + + + | 12/16/ | Lab | [facility] | Emily Chavis | Asthma, unspecified | | 2019 | Requisition | [address] | Y, Supervisor Composing Room | asthma severity, | | | | [place] [address] | | unspecified whether | | | | [phone] | | complicated, | | | | | | unspecified whether | | | | | | persistent | +--------+ + + + + Social History + + + +--------+------+ | Tobacco Use | Types | Packs/Day | Years | Date | | | | | Used | | + + + +--------+------+ | Heavy Tobacco Smoker | Cigarettes | 0.5 | 50 | | + + + +--------+------+ + +---+---+---+ | Smokeless Tobacco: | | | | | Never Used | | | | + +---+---+---+ + + | Comments: cut down to 0.5 ppd several weeks ago | + + + + +---------+ + | Alcohol Use | Drinks/We | oz/Week | Comments | | | ek | | | + + +---------+ + | No | | | | + + +---------+ + + + + | Sex Assigned at | Date Recorded | | | | + + + | Not on file | | + + + as of this encounter Plan of Treatment +--------+ + + + + | Date | Type | Specialty | Care Team | Description | +--------+ + + + + | 02/27/ | Office | Pulmonology | Zheng Saravia | | | 2019 | Visit | | Eddie Bowden MD [address] | | | | | | [address] | | | | | | [place] [address] | | | | | | [phone] | | | | | | | | +--------+ + + + + | 03/13/ | Documentati | Cardiology | | | | 2019 | on Only | | | | +--------+ + + + + as of this encounter Procedures + +--------+ + + + | Procedure Name | Priori | Date/Time | Associated Diagnosis | Comments | | | ty | | | | + +--------+ + + + | ALLERGENS, PACIFIC | Routin | 12/16/2018 | Asthma, | Results for this | | [facility] 14 | e | 10:42 AM | unspecified asthma | procedure are in the | | | | PDT | severity, | results section. | | | | | unspecified whether | | | | | | complicated, | | | | | | unspecified whether | | | | | | persistent | | + +--------+ + + + | CBC W/AUTO DIFF | Routin | 12/16/2018 | Asthma, | Results for this | | (REFLEX TO MANUAL) | e | 10:42 AM | unspecified asthma | procedure are in the | | | | PDT | severity, | results section. | | | | | unspecified whether | | | | | | complicated, | | | | | | unspecified whether | | | | | | persistent | | + +--------+ + + + | IGE | Routin | 12/16/2018 | Asthma, | Results for this | | | e | 10:42 AM | unspecified asthma | procedure are in the | | | | PDT | severity, | results section. | | | | | unspecified whether | | | | | | complicated, | | | | | | unspecified whether | | | | | | persistent | | + +--------+ + + + in this encounter Results Allergens, Kimble Bunker 14 (12/16/2018 10:42 AM) + + + + + | Component | Value | Ref Range | Performed At | + + + + + | CLASS | (See Below)Comment: | | [facility] | | | Levels of Specific | | | | | IgE | | | | | Class Description of | | | | | Class | | | | | | | | | | --- ----- -------- | | | | | | | | | | | | | | | < 0.10 | | | | | 0 | | | | | Negative | | | | | 0.10 | | | | | - 0.31 | | | | | 0/I | | | | | Equivocal/Low | | | | | 0.32 | | | | | - 0.55 | | | | | I | | | | | Low 0 | | | | | .56 | | | | | - 1.40 | | | | | | | | | | II Modera | | | | | te 1. | | | | | 41 | | | | | - 3.90 | | | | | III | | | | | High | | | | | 3.91 - | | | | | 19.00 | | | | | IV Very | | | | | High | | | | | 19.01 | | | | | - 100.00 | | | | | V | | | | | Very | | | | | High | | | | | | | | | | >100.00 | | | | | Very | | | | | High | | | + + + + + | IMMUNOGLOBULIN E | 51Comment: Reference | [iU]/mL | [facility] | | TOTAL | range: 6 to 495 | | | + + + + + | D PTERONYSSINUS | <0.10Comment: Reference | kU/L | [facility] | | (MITE) IGE | range: Class 0 | | | + + + + + | CAT DANDER IGE | <0.10Comment: Reference | kU/L | [facility] | | | range: Class 0 | | | + + + + + | DOG DANDER IGE | <0.10Comment: Reference | kU/L | [facility] | | | range: Class 0 | | | + + + + + | MJ GRASS IGE | <0.10Comment: Reference | kU/L | [facility] | | | range: Class 0 | | | + + + + + | COCKROACH IGE | <0.10Comment: Reference | kU/L | [facility] | | | range: Class 0 | | | + + + + + | ALTERNARIA TENUIS | <0.10Comment: Reference | kU/L | [facility] | | IGE | range: Class 0 | | | + + + + + | BURGESS KRISTINA TREE IGE | <0.10Comment: Reference | kU/L | [facility] | | | range: Class 0 | | | + + + + + | BOX ELDER IGE | <0.10Comment: Reference | kU/L | [facility] | | | range: Class 0 | | | + + + + + | COMMON SILVR BIRCH | <0.10Comment: Reference | kU/L | [facility] | | IGE | range: Class 0 | | | + + + + + | OAK TREE IGE | <0.10Comment: Reference | kU/L | [facility] | | | range: Class 0 | | | + + + + + | ALLERGEN,WALNUT TREE | <0.10Comment: Reference | kU/L | [facility] | | IGE | range: Class 0 | | | + + + + + | ALLERGEN,PIGWEED IGE | <0.10Comment: Reference | kU/L | [facility] | | | range: Class 0 | | | + + + + + | ALLERGEN,CANADIAN | <0.10Comment: Reference | kU/L | [facility] | | THISTLE ([place]) | range: Class 0 | | | | IGE | | | | + + + + + | [address], | <0.10Comment: Reference | kU/L | [facility] | | Western | range: Class 0 | | | + + + + + + + + + + | Performing | Address | City/State/Zipcode | Phone Number | | Organization | | | | + + + + + | [facility] | [address] | [place] [address] | | + + + + + IGE (12/16/2018 10:42 AM) + + + + + | Component | Value | Ref Range | Performed At | + + + + + | IMMUNOGLOBULIN E | 50Comment: Reference | [iU]/mL | [facility] | | TOTAL | range: 6 to 495 | | | + + + + + + + | Specimen | + + | Blood | + + + + + + + | Performing | Address | City/State/Zipcode | Phone Number | | Organization | | | | + + + + + | [facility] | [address] | [place] [address] | | + + + + + CBC w/auto diff (reflex to manual) (12/16/2018 10:42 AM) + + + + + | Component | Value | Ref Range | Performed At | + + + + + | WBC | 8.75 | 3.80 - 11.00 10*3/uL | [facility] | | | | | LABORATORY | + + + + + | RBC | 3.90 | 3.70 - 5.10 10*6/uL | [facility] | | | | | LABORATORY | + + + + + | HGB | 13.4 | 11.3 - 15.5 g/dL | [facility] | | | | | LABORATORY | + + + + + | HCT | 39.0 | 34.0 - 46.0 % | [facility] | | | | | LABORATORY | + + + + + | MCV | 100.1 (H) | 80.0 - 100.0 fL | [facility] | | | | | LABORATORY | + + + + + | MCH | 34.5 (H) | 27.0 - 34.0 pg | [facility] | | | | | LAB[facility]ATORY | + + + + + | MCHC | 34.5 | 32.0 - 35.5 g/dL | [facility] | | | | | LAB[facility] | + + + + + | RDW SD | 48.1 | 37 - 53 fL | [facility] | | | | | LAB[facility] | + + + + + | PLT | 183 | 150 - 400 10*3/uL | [facility] | | | | | [facility] | + + + + + | MPV | 8.5 | fL | [facility] | | | | | LAB[facility] | + + + + + | DIFF TYPE | AUTOMATED | | [facility] | | | | | LAB[facility] | + + + + + | NEUTROPHILS | 75.40 | % | [facility] | | | | | LAB[facility] | + + + + + | LYMPHOCYTES | 15.41 | % | [facility] | | | | | [facility] | + + + + + | MONOCYTES | 6.76 | % | [facility] | | | | | LAB[facility] | + + + + + | EOSINOPHILS | 1.85 | % | [facility] | | | | | LAB[facility] | + + + + + | BASOPHILS | 0.58 | % | [facility] | | | | | LABORAT[facility] | + + + + + | NEUTROPHILS ABS | 6.60 | 1.90 - 7.40 10*3/uL | [facility] | | | | | LAB[facility] | + + + + + | LYMPHOCYTES ABS | 1.35 | 1.00 - 3.90 10*3/uL | [facility] | | | | | LAB[facility] | + + + + + | MONOCYTES ABS | 0.59 | 0.00 - 0.80 10*3/uL | [facility] | | | | | LAB[facility]AT[facility] | + + + + + | EOSINOPHILS ABS | 0.16 | 0.00 - 0.50 10*3/uL | [facility] | | | | | LAB[facility] | + + + + + | BASOPHILS ABS | 0.05 | 0.00 - 0.10 10*3/uL | [facility] | | | | | LABORATORY | + + + + + + + | Specimen | + + | Blood | + + + + + + + | Performing | Address | City/State/Zipcode | Phone Number | | Organization | | | | + + + + + | [facility] | [address] | [place] [address] | [phone] | | LABORATORY | [address] | | | + + + + + in this encounter Visit Diagnoses + + | Diagnosis | + + | Asthma, unspecified asthma severity, unspecified whether complicated, unspecified | | whether persistent | + +"
--- OUTSIDE RECORDS SUMMARY | ~2019-02-11 | XMS | Encounter Summary ---
Demographics + + + | Address | [address] | | | [place] [address] | + + + | Home Phone | | + + + | Preferred Language | Unknown | + + + | Marital Status | | + + + | Restorationism Affiliation | 1041 | + + + | Race | Unknown | + + + | Ethnic Group | Unknown | + + + Author + + + | Author | [employer] [facility] (Historical as of | | | 12-31-18) | + + + | Organization | [facility] (Historical as of | | | 12-31-18) [...] Team Providers + +------+ + | Care Bi Technical Lead Name | Role | Phone | + +------+ + | Roxana Barajas PA-C | PCP | | + +------+ + Reason for Referral Diagnostic Lab (Routine) + +--------+ + + + + | Status | Reason | Specialty | Diagnoses / | Referred By | Referred To | | | | | Procedures | Contact | Contact | + +--------+ + + + + | Authorized | | Pulmonology | Diagnoses | Rani, | [facility] | | | | | Chronic | Zheng | Pulmonary | | | | | obstructive | Eddie Bowden MD | Function Lab | | | | | pulmonary | [address] | [address] | | | | | disease, | [address] | [address] | | | | | unspecified | [address] | [place], [place] | | | | | COPD type | [place], [place] | [address] Phone: | | | | | ([facility]) | [address] | [phone] | | | | | Procedures | Phone: | Fax: | | | | | Complete PFT | [phone] | [phone] | | | | | - Pre & | Fax: | | | | | | Post | [phone] | | | | | | Spirometry, | | | | | | | PLETH & DLCO | | | + +--------+ + + + + Reason for Visit +--------+ + | Reason | Comments | +--------+ + | Other | New pt- COPD | +--------+ + Encounter Details +--------+---------+ + + + | Date | Type | Department | Care Team | Description | +--------+---------+ + + + | 12/16/ | Office | [facility] | Zheng Saravia | Chronic obstructive | | 2019 | Visit | Pulmonology [address] | Eddie Bowden MD [address] | pulmonary disease, | | | | [address] | [address] | unspecified COPD | | | | [place], [place] | [place] [address] | type (HCC) (Primary | | | | [address] | [phone] | Dx); Tobacco abuse; | | | | [phone] | | Asthma, unspecified | | | | | | asthma severity, | | | | | | unspecified whether | | | | | | complicated, | | | | | | unspecified whether | | | | | | persistent | +--------+---------+ + + + Social History + + [...] + + + as of this encounter Last Filed Vital Signs + + + + | Vital Sign | Reading | Time Taken | + + + + | Blood Pressure | 136/67 | 12/16/2018 9:23 AM PDT | + + + + | Pulse | 79 | 12/16/2018 9:23 AM PDT | + + + + | Temperature | 35.9 C (96.7 F) | 12/16/2018 9:23 AM PDT | + + + + | Respiratory Rate | - | - | + + + + | Oxygen Saturation | 97% | 12/16/2018 9:23 AM PDT | + + + + | Inhaled Oxygen | - | - | | Concentration | | | + + + + | Weight | 104.3 kg (230 lb) | 12/16/2018 9:23 AM PDT | + + + + | Height | 157.5 cm (5' 2") | 12/16/2018 9:23 AM PDT | + + + + | Body Mass Index | 42.07 | 12/16/2018 9:23 AM PDT | + + + + in this encounter Progress Notes Zheng Saravia MD - 12/16/2018 9:30 AM PDTFormatting of this note may be diffe rent from the original. Patient: Yuliana Galindo 78 y.o. 1940 Referred from: Roxana Barajas PA-C [address] [place] [address] Referral reason: Chief Complaint Patient presents with Other New pt- COPD HPI: Yuliana Galindo is an 78 y/o female referred to me for COPD. She is a current smoker up to 1 ppd for the past 50 years. She recalls being told about 20 years ago that she had COPD an d asthma. She was experiencing cough and wheezing that time but improved when she changed h er carpet at home. She has a history of CAD s/p CABG in 1994 and stents in 2018. She also has CHF with an EF of 40-45%. She also has DM and HTN. She experiences dyspnea on exertion when walking several meters. Sometimes she also gets dyspneic when bathing. She denies or thopnea or PND. She also has a daily productive cough in the mornings with whitish phlegm. When laying down sometimes she hears herself wheeze. She currently has a dog. 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 Review of Systems Constitutional: Negative. Negative for chills, diaphoresis, fever, malaise/fatigue and alana ght loss. HENT: Negative for congestion and sore throat. Eyes: Negative. Respiratory: Positive for cough, sputum production and shortness of breath. Negative for he moptysis, wheezing and stridor. Cardiovascular: Negative for chest pain, palpitations, orthopnea, leg swelling and PND. Gastrointestinal: Negative for abdominal pain, constipation, diarrhea, heartburn, nausea an d vomiting. Genitourinary: Negative. Musculoskeletal: Negative for joint pain and myalgias. Skin: Negative for rash. Neurological: Negative for dizziness, focal weakness, seizures and headaches. Endo/Heme/Allergies: Negative for environmental allergies. Does not bruise/bleed easily. All other systems reviewed and are negative. Past Medical History Diagnosis Date Anxiety With panic attacks Asthma CHF (congestive heart failure) ([facility]) chronic systolic heart failure, EF was 27% in the past, improved to 50-55% on echo 02/18/15 Community acquired pneumonia 2011 COPD (chronic obstructive pulmonary disease) ([facility]) h/o chronic bronchitis, long h/o tobacco abuse Coronary artery disease involving [place] coronary artery s/p CABG x3 (SVG to LAD, SVG to RCA, SVG to OM3) 1994, s/p KERA to SVG to OM3 01/01 Diabetes mellitus type 2 in obese ([facility]) diet controlled History of syncope 2003 secondary to VT 2003, one recurrent episode remotely since her AICD was implanted. Hyperlipidemia Hypertension Ischemic dilated cardiomyopathy (HCC) EF was 27% on echo 08/01/03, improved to 50-55% on echo 02/18/15 Old [place] (myocardial infarction) 1993 Osteoarthritis Pulmonary embolism (HCC) Pulmonary hypertension (HCC) RVSP 58-63 on echo 01/01 S/P CABG x 3 1994 SVG>LAD, SVG>OM, SVG>RCA (she thought she had 4 grafts, which has been on her records for years, but only 3 vein grafts present on cath 12/27/17) Secondary pulmonary arterial hypertension (HCC) mild, RVSP 40 mm Hg (echo 02/18/15) Status post internal cardiac defibrillator procedure 08/15/2003 S/p DC BS ICD 07/18 - gen change 03/26 - no capture from RA lead (noted at time of gen kuo ge 03/26) - RA lead appears pulled back into SVC on CXR TB (tuberculosis) pulmonary, treated for "6 years" Tobacco abuse Ventricular tachycardia, paroxysmal (HCC) 2003 with Syncope, + EPS for inducible VT - 08/14/03 Past Surgical History Procedure Laterality Date CARDIAC CATHETERIZATION 12/2017 LM 40-50% distal, LAD mid occl post D1, D1 50% ostial-prox, Cx prox 50%, mid 70-80%, RCA o ccl, SVG to LAD patent with 25-30% anastomosis, SVG to RCA patent, SVG to OM3 90-95% ostial and 90-95% mid s/p KERA CARDIAC DEFIBRILLATOR PLACEMENT intial AICD 2003, generator change 03/27/11, [employer] Telogen E110, s# [id number]; R V Lead - Guidant 0184, s# [id number] (08/15/03); RA Lead - Guidant Fineline II EZ Sterox 4469, s # [id number] (08/15/03) CARDIAC DEFIBRILLATOR REMOVAL 03/27/2011 implanted 08/15/03, generator was at [facility] CORONARY ARTERY BYPASS GRAFT 1994 SVG>LAD, SVG>OM, SVG>RCA (she thought she had 4 grafts, which has been on her records for years, but only 3 vein grafts present on cath 12/27/17 KNEE ARTHROPLASTY Right KNEE JOINT MANIPULATION Bilateral PARTIAL HIP ARTHROPLASTY Right rist Right TRANSTHORACIC ECHOCARDIOGRAM 12/2017 EF 40-45%, mild MR, mild TR, tr DC, RVSP 58-63 Family History Problem Relation Age of Onset Coronary Artery Disease Mother 60 [place] Alzheimer's disease Brother Diabetes Mellitus II Brother Thyroid disease Daughter Social History Social History Marital status: Spouse name: N/A Number of children: N/A Years of education: N/A Occupational History retired due to 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 problems 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 1 Inhaler 0 allopurinol (ZYLOPRIM) 100 MG tablet Take 100 mg by mouth daily. aspirin 81 MG tablet Take 81 mg by mouth daily. atorvastatin (LIPITOR) 40 MG tablet Take 1 tablet by mouth nightly. 30 tablet 11 Calcium Carb-Cholecalciferol (CALCIUM/VITAMIN D) 600-400 MG-UNIT TABS Take 1 tablet by mouth 2 (two) times daily. cholecalciferol (VITAMIN D-3) 1000 UNITS tablet Take 1,000 Units by mouth daily. clopidogrel (PLAVIX) 75 MG tablet Take 1 tablet by mouth daily. 30 tablet 11 cyanocobalamin (VITAMIN B-12) 1000 MCG tablet Take 1,000 mcg by mouth daily. escitalopram (LEXAPRO) 20 MG tablet Take 20 mg by mouth daily. furosemide (LASIX) 20 MG tablet Take 20 mg by mouth daily. ipratropium (ATROVENT HFA) 17 MCG/ACT inhaler Take or use as needed. isosorbide mononitrate (IMDUR) 30 MG 24 hr tablet Take 1 tablet by mouth daily. lisinopril (ZESTRIL) 10 MG tablet Take 1 tablet by mouth daily. 90 tablet 3 metoprolol (TOPROL-XL) 25 MG 24 hr tablet Take 25 mg by mouth daily. nitroGLYCERIN (NITROSTAT) 0.[address] 1 tablet under the tongue every 5 (fiv e) minutes as needed for Chest pain. 25 tablet 3 potassium chloride (KLOR-CON) 20 MEQ packet Take 20 mEq by mouth daily. acetaminophen (TYLENOL) 325 MG tablet Take 325 mg by mouth every 6 (six) hours as neede d for Pain. albuterol (VENTOLIN HFA) 108 (90 Base) MCG/ACT inhaler Inhale 2 puffs into the lungs ev misael 6 (six) hours as needed for Wheezing or Shortness of Breath. 1 Inhaler 6 mometasone-formoterol (DULERA) 200-5 MCG/ACT inhaler Inhale 2 puffs into the lungs 2 (t wo) times daily. 1 Inhaler 6 No facility-administered encounter medications on file as of 12/16/2018. Vitals: 12/16/18 0923 BP: 136/67 BP Location: Left upper arm Patient Position: Sitting Pulse: 79 Temp: 96.7 F (35.9 C) TempSrc: Oral SpO2: 97% Weight: 104.3 kg (230 lb) Height: 1.575 m (5' 2") Physical Exam Constitutional: She is oriented to person, place, and time. She appears well-developed and well-nourished. No distress. HENT: Head: Normocephalic. Mouth/Throat: Oropharynx is clear and moist. No oropharyngeal exudate. Eyes: Conjunctivae are normal. No scleral icterus. Neck: No tracheal deviation present. Cardiovascular: Normal rate, regular rhythm and normal heart sounds. Exam reveals no lynn p and no friction rub. No murmur heard. Pulmonary/Chest: Effort normal and breath sounds normal. No accessory muscle usage or strid or. No tachypnea and no bradypnea. No respiratory distress. She has no decreased breath soun ds. She has no wheezes. She has no rhonchi. She has no rales. She exhibits no tenderness. Abdominal: Soft. Bowel sounds are normal. She exhibits no distension. There is no tendernes s. Musculoskeletal: She exhibits no edema. Lymphadenopathy: She has no cervical adenopathy. Neurological: She is alert and oriented to person, place, and time. Skin: Skin is warm. No rash noted. She is not diaphoretic. No cyanosis or erythema. Nails s how no clubbing. Vitals reviewed. Assessment and Plan: A> 78F smoker with COPD possibly with asthma overlap with h/o CAD s/p CABG and stents, DM, HTN P> 1. COPD - based on her history and current smoking status, she most likely has COPD. It is unclear though if she indeed has overlapping asthma. - she does not seem to be in an exacerbation currently. - I recommended obtaining a complete PFT to further evaluate this. I will also have her un dergo a chest xray. - will also check labs including CBC, IgE level, and allergy panel. - regarding medications, it appears she was on Dulera and Ventolin but says she has not bee n using these at all. I discussed with her then what COPD means and how this is treated. D iscussed the importance of using her inhalers as instructed to achieve control of her condit ion. - I recommended restarting Dulera 200/5 2 puffs BID. - I will also refill her albuterol inhaler as well. 2. Tobacco abuse - smokes 50 pack years. Counseled her on smoking cessation but she did not seem interested at this time. She will consider it though. She did not want any medications for now. Return in about 2 months (around 02/15/2019). in this encounter Plan of Treatment +--------+ + + + + | Date | Type | Specialty | Care Team | Description | +--------+ + + + + | 02/27/ | Office | Pulmonology | Zheng Saravia | | | 2018 | Visit | | Eddie Bowden MD [address] | | | | | | [address] | | | | | | [place] [address] | | | | | | [phone] | | | | | | | | +--------+ + + + + | 03/13/ | Documentati | Cardiology | | | | 2018 | on Only | | | | +--------+ + + + + + +--------+ + + | Name | Priori | Associated Diagnoses | Order Schedule | | | ty | | | + +--------+ + + | Complete PFT - Pre & Post | Routin | Chronic | Expected: | | Spirometry, PLETH & DLCO | e | obstructive | 12/16/2018, Expires: | | | | pulmonary disease, | 12/16/2019 | | | | unspecified COPD | | | | | type (HCC) | | + +--------+ + + | X-ray chest 2 view frontal & | Routin | Chronic | Expected: | | lateral | e | obstructive | 12/16/2018, Expires: | | | | pulmonary disease, | 06/16/2019 | | | | unspecified COPD | | | | | type (HCC) | | + +--------+ + + as of this encounter [facility] 14 (12/16/2018 10:42 AM) + + + [...] | + + + + + | ALLERGEN,TAJIK | <0.10Comment: Reference | kU/L | [facility] | | THISTLE ([place]) | range: Class 0 | | | [...] + + | [facility] | [address] | [place] [address] | | + + + + + [...] | [facility] | [address] | [place] [address] | | + + + + + [...] | + + + + + | [facility] | [address] | [place] [address] | [phone] | | LABORATORY | [address] | | | + + + + + in this encounter Visit Diagnoses + + | Diagnosis | + + | Chronic obstructive pulmonary disease, unspecified COPD type (HCC) - Primary | + + | Tobacco abuse | + + | Tobacco use disorder | + + | Asthma, unspecified asthma severity, unspecified whether complicated, unspecified | | whether persistent | + +
--- OUTSIDE RECORDS SUMMARY | ~2019-02-11 | XMS | Encounter Summary ---
Demographics + + + | Address | [address] | | | [place] [address] | + + + | Home Phone | | + + + | Preferred Language | Unknown | + + + | Marital Status | | + + + | Christianity Affiliation | 1041 | + + + | Race | Unknown | + + + | Ethnic Group | Unknown | + + + Author + + + | Author | [facility] | | | and [place] | + + + | Organization | [facility] | | | and [...] | | + + +---------+ + | Keron Montalvo | ECON | Unknown | Unavailable | | ia | | | | + + +---------+ + Care Team Providers + +------+ + | Care Chinchilla Machine Operator Name | Role | Phone | + +------+ + | Roxana Barajas PA-C | PCP | Unavailable | + +------+ + Encounter Details +--------+ + + + + | Date | Type | Department | Care Team | Description | +--------+ + + + + | 12/30/ | Orders Only | [facility] | Dawn Burrows | Essential (primary) | | 2019 | | CARDIOLOGY [place] | [address] | hypertension; Mixed | | | | [address] | [address] | hyperlipidemia | | | | [address] | [place] [address] | | | | | [place] | [phone] | | | | | [address] | | | | | | [phone] | | | +--------+ + + + + Social History + +-------+ +--------+------+ | Tobacco Use | Types | Packs/Day | Years | Date | | | | | Used | | + +-------+ +--------+------+ | Heavy Tobacco Smoker | | 0.5 | | | + +-------+ +--------+------+ + + | Comments: cut down to 0.5 ppd several weeks ago | + + + + + | Sex Assigned [...] [address] | | | | | | [place] [address] | | | | | | [phone] | | | | | | | | +--------+ + + + + | 03/13/ | Procedure | Cardiology | | | | 2018 | visit | | | | +--------+ + + + + + +--------+ + + | Name | Priori | Associated Diagnoses | Order Schedule | | | ty | | | + +--------+ + + | Comprehensive Metabolic Panel | Routin | Essential | Expected: | | | e | (primary) | 07/18/2018, Expires: | | | | hypertension Mixed | 07/19/2019 | | | | hyperlipidemia | | + +--------+ + + | Lipid Panel | Routin | Mixed | Expected: | | | e | hyperlipidemia | 07/18/2018, Expires: | | | | | 07/19/2019 | + +--------+ + + documented as of this encounter Visit Diagnoses + + | Diagnosis | + + | Essential (primary) hypertension Unspecified essential hypertension | + + | Mixed hyperlipidemia | + + documented in this encounter"
--- OUTSIDE RECORDS SUMMARY | ~2019-02-11 | XMS | Encounter Summary ---
Demographics + + + | Address | [address] | | | [place] [address] | + + + | Home Phone | | + + + | Preferred Language | Unknown | + + + | Marital Status | | + + + | Restoration Affiliation | 1041 | + + + | Race | Unknown | + + + | Ethnic Group | Unknown | + + + Author + + + | Author | [facility] | | | and [place] | + + + | Organization | [facility] | | | and [place] | + + + | Address | Unknown | + + + | Phone | Unavailable | + + + Support + + +---------+ + | Name | Relationship | Address | Phone | + + +---------+ + | Kamlia Jackson | ECON | Unknown | | + + +---------+ + | Martha Montenegro | ECON | Unknown | | + + +---------+ + | Keron Montalvo | ECON | Unknown | Unavailable | | ia | | | | + + +---------+ + Care Team Providers + +------+ + | Care Steam Frame Operator Name | Role | Phone | + +------+ + | Pcp, Prov Inactive | PCP | | + +------+ + Encounter Details +--------+ + + + + | Date | Type | Department | Care Team | Description | +--------+ + + + + | 12/13/ | Orders Only | [facility] | Provider, | | | 2018 | | SYSTEM GENERIC OP | [address] | | | | | [address] | [address] | | | | | [address] [place], [place] | [place] [address] | | | | | [address] | | | | | | [phone] | | | +--------+ + + + [...] | | | | | [place] [address] | | | | | | [phone] | | | | | | | | +--------+ + + + + | 03/13/ | Procedure | Cardiology | | | | 2018 | visit | | | | +--------+ + + + + documented as of this encounter Visit Diagnoses Not on filedocumented in this encounter"
--- OUTSIDE RECORDS SUMMARY | ~2019-02-11 | XMS | Clinical Summary ---
Demographics + + + | Address | [address] | | | [place] [address] | + + + | Home Phone | | + + + | Preferred Language | Unknown | + + + | Marital Status | | + + + | Judaism Affiliation | 1041 | + + + | Race | Unknown | + + + | Ethnic Group | Unknown | + + + Author + + + | Author | [facility] | | | and [place] | + + + | Organization | [facility] | | | and [place] | + + + | Address | Unknown | + + + | Phone | Unavailable | + + + Support + + +---------+ + | Name | Relationship | Address | Phone | + + +---------+ + | Kamila aJckson | ECON | Unknown | | + + +---------+ + | Martha Montenegro | ECON | Unknown | | + + +---------+ + | Keron Montalvo | ECON | Unknown | Unavailable | | ia | | | | + + +---------+ + Care Team Providers + +------+ + | Care Convalescent Sitter Name | Role | Phone | + [...] by mouth 2 | | 0 | 01/15 | | Activ | | (CALCIUM + D) | times daily. | | | 320 | | e | | 250-125 MG-UNIT per | | | | 12 | | | | tablet | | | | | | | + + + +---------+------+------+-------+ | warfarin | 3 mg four days a | | 0 | 1 | | Activ | | (COUMADIN) 3 MG | week, 4.5 mg three | | | 20 | | e | | tablet | days a week. | | | 12 | | | + + + +---------+------+------+-------+ | simvastatin | Take 40 mg by mouth | | 0 | 091 | | Activ | | (ZOCOR) 40 [...] | 09/1 | | Activ | | (PRINIVIL, ZESTRIL) | Daily. | | | 3/20 | | e | | 5 mg [...] | succinate | Daily. | | | 320 | | e | | (TOPROL-XL) 25 [...] the tongue every 5 | | | 4/20 | 3/20 | e | | SL [...] + + +---------+------+------+-------+ | atorvaSTATin | Take 1 tablet by | | 0 | 12/17 | 12/17 | Expir | | (LIPITOR) 40 mg | mouth nightly. | | | 06/05 | 06/05 | ed | | tablet | | | | 18 | 19 | | + + + +---------+------+------+-------+ | clopidogrel | Take 1 tablet by | | 0 | 12/17 | 12/17 | Expir | | (PLAVIX) 75 mg | mouth daily. | | | 06/05 | 06/05 | ed | | tablet | | | | 18 | 19 | | + + + +---------+------+------+-------+ Active Problems + + + | Problem | Noted Date | + + + | Coronary artery disease involving [place] coronary artery | 12/13/2018 | + + [...] Overview: intial AICD 2003, generator change 03/27/11, [place] | | Scientific Telogen E110, s# [id number]; RV Lead - Guidant 0184, s# | | [id number] (08/15/03); RA Lead - Guidant Fineline II EZ Sterox 4469, | | s# [id number] (08/15/03) | + + + + + [...] Dawn Burrows | Essential (primary) | | 2018 | | | [address] | hypertension; Mixed | | | | | | hyperlipidemia | +--------+ + + + + | 12/16/ | Orders Only | | Zheng Saravia | | | 2018 | | | Eddie Bowden MD | | +--------+ + + + + | 12/13/ | Orders Only | | Provider, | | | 2018 | | | MD Blake | | +--------+ + + + + from Last 3 Months Family History + + +------+ + | [...] | Coronary artery | Mother | | [place] | | disease | | | | [...] + | Mother | | | | + +--------+ + [...] + | Blood Pressure | 136/67 | 12/16/2018928 PDT | + + + + | Pulse | 79 | 12/16/2018928 PDT | + + + + | Temperature | 35.9 C (96.7 F) | 12/16/2018928 PDT | + + + + | Respiratory Rate | 18 | 07/18/2018 1047 PST | + + + + | [...] [address] | | | | | | [place] [address] | | | | | | [phone] | | | | | | | [...] + + + + | Vaccine: Zoster (1 | | | | | of 2) | 9 | | | + + [...] | | | | | (#1) | 9 | | | + + + + + Procedures + +--------+ + + + | Procedure Name | Priori | Date/Time | Associated Diagnosis | Comments | | | ty | | | | + +--------+ + + + | EXTERNAL LAB: CBC | Routin | 12/16/2018 | | Results for this | | | e | 10:42 PDT | | procedure are in the | | | | | | results section. | + +--------+ + + + from Last 3 Months Results External Lab: CBC (12/16/2018 10:42 PDT) + + + + + + [...] + + + + | % | 75.40 | % | EXTERNAL | | | Neutrophils | | | LAB | | + [...] - 7.40 | EXTERNAL | | | Neutrophils | | 10*3/uL | LAB | | [...] + | Blood | + + + +---------+ + + [...] +--------+ +---------+--------+ | MEDICARE | MEDICA | [id number] | 11/15/19 | [phone] | | Medica | | | RE | | 04-Pre | 5 | | re | | | PART A | | sent | | | | | | AND B | | | | | | + +--------+ +--------+ +---------+--------+ | [facility] | IHS | [phone] | 05/18/19 | | | Indemn | | SERVICE | YELLOW | | 13-Pre | | | ity | | | HAWK | | sent | | | | + +--------+ +--------+ +---------+--------+ | MEDICAID [place] | MEDICA | [id number] | | [phone] | | Medica | [...] Person | Self | [birth year] | | [address] | | | al/Fam | | 1941 | [phone] | [place], [place] | | | [place] | | | [address] (Home) | [address] | + +--------+ +--------+ + + | Yuliana Galindo | Person | Self | [birth year] | | [address] | | | al/Fam | | 1941 | [phone] | [place], [place] | | | [place] | | | [address] ([place]) | [address] | + +--------+ +--------+ + + Advance Directives Patient has advance care planning documents on file. For more information, please contact:[facility] [place] [address]
--- OUTSIDE RECORDS SUMMARY | ~2019-02-11 | XMS | Clinical Summary ---
Demographics + + + | Address | [address] | | | [place] [address] | + + + | Home Phone | | + + + | Preferred Language | Unknown | + + + | Marital Status | | + + + | Gnosticist Affiliation | 1041 | + + + | Race | Unknown | + + + | Ethnic Group | Unknown | + + + Author + + + | Author | [facility] (Historical as of | | | 12-31-18) | + + + | Organization | [facility] (Historical as of | | | 12-31-18) [...] Team Providers + +------+ + | Care Orthodontic Technician Name | Role | Phone | [...] | | | | | | type ([facility]) | | | | | | | [...] | | | | | | type ([facility]) | | | | | | | [...] Overview: intial AICD 2004, generator change 03/27/11, [place] | | Scientific Telogen E110, s# [id number]; RV Lead - Guidant 0184, s# | | [id number] (08/15/03); RA Lead - Guidant Fineline II EZ Sterox 4469, | | s# [id number] (08/15/03) | + + + + + | Ventricular tachycardia, paroxysmal (HCC) | 05/17/2003 | + + + + + | Overview: with Syncope, + EPS for inducible VT - 08/14/03 | + + + + + | 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 | + + + | Coronary artery disease involving [place] coronary artery | | + + + [...] + + + + + | Overview: [employer] | | Telogen model E110, serial number [id number] | + + Encounters +--------+ + + + + | Date | Type | Specialty | Care Team | Description | +--------+ + + + + | 12/16/ | Office | | Zheng Saravia | Chronic obstructive | | 2018 | Visit | | Eddie Bowden MD | pulmonary disease, | | | | | | unspecified COPD | | | | | | type (HCC) (Primary | | | | | | Dx); Tobacco abuse; | | | | | | Asthma, unspecified | | | | | | asthma severity, | | | | | | unspecified whether | | | | | | complicated, | | | | | | unspecified whether | | | | | | persistent | +--------+ + + + + | 12/16/ | Lab | | Emily Chavis | Asthma, unspecified | | 2018 | Requisition | | Y, Manager Mining | asthma severity, | | | | | | unspecified whether | | | | | | complicated, | | | | | | unspecified whether | | | | | | persistent | +--------+ + + + + | 12/16/ | Orders Only | | Ct Leonardo, | | | 2018 | | | WARDSPERSON | | +--------+ + + + + | 12/06/ | Documentati | | | Automatic | | 2019 | on Only | | | Implantable | | | | | | Cardioverter | | | | | | Defibrillator | | | | | | (in-office) | +--------+ + + + + | 12/05/ | Telephone | | Dawn Burrows | Pacemaker Check | | 2019 | | | [address] | (Pacemaker Check ) | +--------+ + + + + from [...] | Coronary Artery | Mother | | [place] | | Disease | | | | [...] + + | 02/27/ | Office | | Zheng Saravia | | | 2019 | Visit | | Eddie Bowden MD [address] | | | | | | [address] | | | | | | [place] [address] | | | | | | [phone] | | | | | | | | +--------+ + + + + | 03/13/ | Documentati | | | | | 2018 | on [...] Corey | [place] | | 08/30/ | [id number] | | 12/27/2017Implanted: | | ry | SCIENTIFIC | | 2018 | [id number] | | 12/27/2017 by Aquiles Morris, | | | LARRY - BSCI | | | 50 / | | MD (Quantity not on file) | | | | | | /[id number] | | | | | | | | 257 | + +-------+--------+ +--------+--------+--------+ | Synergy 3.5 X | Stent | Corey | [place] | | 08/30/ | [id number] | | 12/27/2017Implanted: | | ry | SCIENTIFIC | | 2019 | [id number] | | 12/27/2017 by Aquiles Morris, | | | LARRY - BSCI | | | 50 / | | MD (Quantity not on file) | | | | | | /[id number] | | | | | | | | 257 | + +-------+--------+ +--------+--------+--------+ Procedures + +--------+ + + + [...] | | + +--------+ + + + from Last 3 Months Results Allergens, [facility] 14 (12/16/2018 10:42 AM) + + + [...] | + + + + + | ALLERGEN,NIUEAN | <0.10Comment: Reference | kU/L | [facility] | | THISTLE ([place]) | range: Class 0 | | | | IGE | | | | + + + + + | [address], | <0.10Comment: Reference | kU/L | [facility] | | Western | range: Class 0 | | | + + + + + + + + + + | Performing | Address | City/State/Zipcode | Phone Number | | Organization | | | | + + + + + | [facility] | [address] | [place] [address] | | + + + + + [...] | + + + + + | [facility] | [address] | [place] [address] | [phone] | | LABORATORY | [address] | | [...] | [address] | [place] [address] | | + + + + + from Last 3 Months Insurance + +--------+ +------+-------+ + | Payer | Benefi | Subscriber | Type | Phone | Address | | | t Plan | ID | | | | | | / | | | | | | | Group | | | | | + +--------+ +------+-------+ + | MEDICARE | MEDICA | [id number] | | | [address] | | | RE | | | | [place] [phone] | | | IP-OP | | | | | + +--------+ +------+-------+ + | MEDICAID | MEDICA | [id number] | | | [address] | | | ID | | | | [place] | | | [place] | | | | [address] | + +--------+ +------+-------+ + | /[facility] | YELLOW | [id number] | | | | | PLANS | [place]WK | | | | | + +--------+ +------+-------+ + + +--------+ +--------+ + + | Guarantor Name | Accoun | Relation to | Date | Phone | Billing Address | | | t Type | Patient | of | | | | | | | | | | + +--------+ +--------+ + + | YULIANA HUMPHREYS | Person | Self [birth year] | Home: | [address] | | | al/Fam | | 1941 | [phone] [place] | | | [place] | | | [phone] | [address] | + +--------+ +--------+ + +
--- OUTSIDE RECORDS SUMMARY | ~2019-02-11 | XMS | Encounter Summary ---
Demographics + + + | Address | [address] | | | [place] [address] | + + + | Home Phone | | + + + | Preferred Language | Unknown | + + + | Marital Status | | + + + | Tenriism Affiliation | 1041 | + + + | Race | Unknown | + + + | Ethnic Group | Unknown | + + + Author + + + | Author | [facility] [employer] [facility] (Historical as of | | | 12-31-18) | + + + | Organization | [facility] [employer] [facility] (Historical as of | | | 12-31-18) [...] Team Providers + +------+ + | Care Scientific Programmer Analyst Name | Role | Phone | + +------+ + | Roxana Barajas PA-C | PCP | | + +------+ + Reason for Visit + + + | Reason | Comments | + + + | Automatic | in-office | | Implantable | | | Cardioverter | | | Defibrillator | | + + + Pacemaker (Routine) +--------+--------+ + + + + | Status | Reason | Specialty | Diagnoses / | Referred By | Referred To | | | | | Procedures | Contact | Contact | +--------+--------+ + + + + | Closed | | Cardiology | Diagnoses | Clinic, | [place] | | | | | BS ICD 6 | [facility] | Cardiology | | | | | month | [place] [address] | [address] | | | | | Procedures | [address] | [address] | | | | | CRD ICD | [place], | [address] | | | | | CHECK | [place] [address] | [place] | | | | | | Phone: | [place] [address] | | | | | | [phone] | Phone: | | | | | | Fax: | [phone] | | | | | | [phone] | Fax: | | | | | | | [phone] | +--------+--------+ + + + + Encounter Details +--------+ + + + + | Date | Type | Department | Care Team | Description | +--------+ + + + + | 12/06/ | Documentati | [facility] [place] | | Automatic | | 2019 | on Only | [facility] [place] | | Implantable | | | | [address] | | Cardioverter | | | | [address] | | Defibrillator | | | | [place] [address] | | (in-office) | | | | [phone] | | | +--------+ + + + + Social History + + + +--------+------+ | Tobacco Use | Types | Packs/Day | Years | Date | | | | | Used | | + + + +--------+------+ | Heavy Tobacco Smoker | Cigarettes | 1 | 62 | | + + + +--------+------+ + [...] + + + as of this encounter Progress Notes Girish Neal RN - 12/06/2018 2:00 PM PDTFormatting of this note may be different from th e original. ICD INTERROGATION REPORT Name: Yuliana Marte Mateo PCP: Roxana Barajas : 1940 Primary cardiology provider: Tres Hewitt Primary electrophysiology provider: Erin Caba Device marketing development representative: [employer] Device type: Dual chamber Battery Longevity: 3 years. INTERROGATION RESULTS: Please see the full interrogation report attached RA Pacin% (VDD mode) RV Pacing: <1% Lead function: Lead impedance and threshold value trends have been reviewed and are are acc eptable based on most recent evaluation. RA Threshold: VDD mode RV Threshold: 0.7V @ 0.5ms RA Amplitude: 1.5mV (VDD mode) RV Amplitude: 7.3mV Known history of atrial flutter or atrial fibrillation: No Current antithrombotic therapy including: aspirin Mode switches: None. VT/VF Detections: Since last remote on 07/25/18: 2 "NSVT" episodes noted, both with EGM's. Episodes are not true as they're atrial driven ta chycardia. Programming changes: Temporary programming changes were made for testing and restored to or iginal values. No permanent changes were made. Pacemaker dependent: No Mode of interrogation: Seen in cardiac device clinic Follow up: The next scheduled interrogation will be in 3 months via remote transmission. Additional comments: None. IMPRESSION: 1. Normal ICD function. 2. No atrial fibrillation/flutter noted. 3. Arrhythmias noted above. Testing performed by: Сергей Mooney, [employer] Associated attestation - Barak Caba MD - 12/28/2018 9:25 AM [employer]ice inte rrogation reviewed. Agree with assessment and plan as outlined. Available EGMs consistent with atrial runs.in this encounter Plan of Treatment +--------+ + + + + | Date | Type | Specialty | Care Team | Description | +--------+ + + + + | 02/27/ | Office | Pulmonology | Zheng Saravia | | | 2018 | Visit | | Eddie Bowden MD [address] | | | | | | [address] | | | | | | [place] [address] | | | | | | [phone] | | | | | | | | +--------+ + + + + | 03/13/ | Documentati | Cardiology | | | | 2018 | on Only | | | | +--------+ + + + + as of this encounter Visit Diagnoses + + | Diagnosis | + + | Ventricular tachycardia, paroxysmal (HCC) - Primary | + + | Paroxysmal ventricular tachycardia | + + | Ischemic dilated cardiomyopathy (HCC) | + + | Other specified forms of chronic ischemic heart disease | + + | Cardiac defibrillator in situ | + + | Automatic implantable cardiac defibrillator in situ | + +
--- OUTSIDE RECORDS SUMMARY | ~2019-02-11 | XMS | Encounter Summary ---
Demographics + + + | Address | [address] | | | [place] [address] | + + + | Home Phone | | + + + | Preferred Language | Unknown | + + + | Marital Status | | + + + | Temple Affiliation | 1041 | + + + | Race | Unknown | + + + | Ethnic Group | Unknown | + + + Author + + + | Author | [facility] [employer] (Historical as of | | | 12-31-18) | + + + | Organization | [facility] [employer] (Historical as of | | | 12-31-18) [...] Team Providers + +------+ + | Care Truck Engine Technician Name | Role | Phone | + +------+ + | Roxana Barajas PA-C | PCP | | + +------+ + Reason for Visit + + + | Reason | Comments | + + + | Pacemaker Check | Pacemaker Check | + + + Encounter Details +--------+ + + + + | Date | Type | Department | Care Team | Description | +--------+ + + + + | 12/05/ | Telephone | [facility] | Dawn Burrows | Pacemaker Check | | 2019 | | Cardiology [place] | [address] | (Pacemaker Check ) | | | | [address] | [address] | | | | | [place], [place] | [place] [address] | | | | | [address] | [phone] | | | | | [phone] | | | +--------+ + + + [...] [address] | | | | | | [place] [address] | | | | | | [phone] | | | | | | | | +--------+ + + + + | 03/13/ | Documentati | Cardiology | | | | 2019 | on Only | | | | +--------+ + + + + as of this encounter Visit Diagnoses Not on filein this encounter"
--- OUTSIDE RECORDS SUMMARY | ~2019-02-11 | XMS | Encounter Summary ---
Demographics + + + | Address | [address] | | | [place] [address] | + + + | Home Phone | | + + + | Preferred Language | Unknown | + + + | Marital Status | | + + + | Cheondoism Affiliation | 1041 | + + + | Race | Unknown | + + + | Ethnic Group | Unknown | + + + Author + + + | Author | [facility] [employer] (Historical as of | | | 12-31-18) | + + + | Organization | [facility] [employer] (Historical as of | | | 12-31-18) [...] Team Providers + +------+ + | Care Tire Finisher Name | Role | Phone | + +------+ + | Roxana Barajas PA-C | PCP | | + +------+ + Encounter Details +--------+ + + + + | Date | Type | Department | Care Team | Description | +--------+ + + + + | 12/16/ | Orders Only | [facility] | [address] | | | 2018 | | Pulmonology [address] | PRODUCT MARKETING CONSULTANT | | | | | [address] | | | | | | [place] | | | | | | [address] | | | | | | [phone] | | | +--------+ + + + [...] [address] | | | | | | [place] [address] | | | | | | [phone] | | | | | | | | +--------+ + + + + | 03/13/ | Documentati | Cardiology | | | | 2018 | on Only | | | | +--------+ + + + + as of this encounter Visit Diagnoses Not on filein this encounter"
--- OUTSIDE RECORDS SUMMARY | ~2019-02-11 | XMS | Encounter Summary ---
Demographics + + + | Address | [address] | | | [place] [address] | + + + | Home Phone | | + + + | Preferred Language | Unknown | + + + | Marital Status | | + + + | Faith Affiliation | 1041 | + + + | Race | Unknown | + + + | Ethnic Group | Unknown | + + + Author + + + | Author | [facility] [facility] (Historical as of | | | 12-31-18) | + + + | Organization | [facility] (Historical as of | | | 12-31-18) [...] Team Providers + +------+ + | Care Operation Specialist Name | Role | Phone | [...] | | | BS ICD 6 | [facility] | Cardiology | | | | | month | [place] [address] | [address] | | | | | Procedures | [address] | [address] | | | | | CRD ICD | [place], | [address] | | | | | CHECK | [place] [address] | [place] | | | | | | Phone: | [place] [address] | | | | | | [phone] | Phone: | | | | | | Fax: | [phone] | | | | | | [phone] | Fax: | | | | | | | [phone] | +--------+--------+ + + + + Encounter Details +--------+ + + + + | Date | Type | Department | Care Team | Description | +--------+ + + + + | 12/06/ | Documentati | [facility] [place] | | Automatic | | 2019 | on Only | [facility] [place] | | Implantable | | | | [address] | | Cardioverter | | | | Way [address] | | Defibrillator | | | | [place] [address] | | (in-office) | | | | [phone] | | | +--------+ + + + [...] Hewitt Primary electrophysiology provider: Erin Caba Device neurology nurse: [employer] Device type: Dual chamber Battery Longevity: 3 [...] noted above. Testing performed by: Сергей Mooney, [employer] Associated attestation - Barak Caba MD - [...] [address] | | | | | | [place] [address] | | | | | | [phone] | | | | | | | [...]
--- OUTSIDE RECORDS SUMMARY | ~2019-02-11 | XMS | Encounter Summary ---
Demographics + + + | Address | [address] | | | [place] [address] | + + + | Home Phone | | + + + | Preferred Language | Unknown | + + + | Marital Status | | + + + | Uatsdin Affiliation | 1041 | + + + | Race | Unknown | + + + | Ethnic Group | Unknown | + + + Author + + + | Author | [facility] | | | and [place] | + + + | Organization | [facility] | | | and [...] Team Providers + +------+ + | Care Home Child Care Provider Name | Role | Phone | + +------+ + | Pcp, Prov Inactive | PCP | | + +------+ + Encounter Details +--------+ + + + + | Date | Type | Department | Care Team | Description | +--------+ + + + + | 12/13/ | Orders Only | [facility] | Provider, | | | 2018 | | SYSTEM GENERIC OP | MD [address] | | | | | CONVERSION [address] | [address] | | | | | [address] [place], [place] | [place] [address] | | | | | [address] | | | | | | [phone] | | | +--------+ + + + [...] | | | | | [place] [address] | | | | | | [phone] | | | | | | | | +--------+ + + + + | 03/13/ | Procedure | Cardiology | | | | 2018 | visit | | | | +--------+ + + + + documented as of this encounter Visit Diagnoses Not on filedocumented in this encounter"
--- OUTSIDE RECORDS SUMMARY | ~2019-02-11 | XMS | Encounter Summary ---
Demographics + + + | Address | [address] | | | [place] [address] | + + + | Home Phone | | + + + | Preferred Language | Unknown | + + + | Marital Status | | + + + | Worship Affiliation | 1041 | + + + | Race | Unknown | + + + | Ethnic Group | Unknown | + + + Author + + + | Author | [facility] | | | and [place] | + + + | Organization | [facility] | | | [...] Team Providers + +------+ + | Care Tube Operator Name | Role | Phone | [...] MD [address] | | | | | [place], [place] | [place] | | | | | [address] | [place] [address] | | | | | [phone] | [phone] | | | | | | | [...] SERRANO | | | | | | [place] [address] | | | | | | [phone] | | | | | | | [...] encounter Results External Lab: CARLO (12/16/2018 10:42 PDT) + + + + [...]
--- OUTSIDE RECORDS SUMMARY | ~2019-02-11 | XMS | Encounter Summary ---
Demographics + + + | Address | [address] | | | [place] [address] | + + + | Home Phone | | + + + | Preferred Language | Unknown | + + + | Marital Status | | + + + | Amish Affiliation | 1041 | + + + | Race | Unknown | + + + | Ethnic Group | Unknown | + + + Author + + + | Author | [employer] [facility] (Historical as of | | | 12-31-18) | + + + | Organization | [facility] (Historical as of | | | 12-31-18) [...] Team Providers + +------+ + | Care Radarman Name | Role | Phone | + [...] | Pulmonology | Diagnoses | Rani, | [facility] | | | | | Chronic | Zheng | Pulmonary | | | | | obstructive | Eddie Bowden MD | Function Lab | | | | | pulmonary | [address] | [address] | | | | | disease, | [address] | Blvd[address] | | | | | unspecified | [address] | [place], [place] | | | | | COPD type | [place], [place] | [address] Phone: | | | | | ([facility]) | [address] | [phone] | | | | | Procedures | Phone: | Fax: | | | | | Complete PFT | [phone] | [phone] | | | | | - Pre & | Fax: | | | | | | Post | [phone] | | | | | | Spirometry, [...] + + | 12/16/ | Office | [facility] | Zheng Saravia | Chronic obstructive | | 2019 | Visit | Pulmonology [address] | Eddie Bowden MD [address] | pulmonary disease, | | | | James VERA D | [address] | unspecified COPD | | | | [place], [place] | [place] [address] | type (HCC) (Primary | | | | [address] | [phone] | Dx); Tobacco abuse; | | | | [phone] | | Asthma, unspecified | | | [...] from: Roxana Barajas PA-C [address] [place] [address] Referral reason: Chief Complaint Patient presents with [...] h/o tobacco abuse Coronary artery disease involving andreafski coronary artery s/p CABG x3 (SVG to [...] improved to 50-55% on echo 02/18/15 Old [place] (myocardial infarction) 1993 Osteoarthritis Pulmonary embolism (HCC) [...] PLACEMENT intial AICD 2003, generator change 03/27/11, [place] [employer] Telogen E110, s# [id number]; R V Lead - Guidant 0184, s# [id number] (08/15/03); RA Lead - Guidant Fineline II EZ Sterox 4469, s # [id number] (08/15/03) CARDIAC DEFIBRILLATOR REMOVAL 03/27/2011 implanted 08/15/03, generator was at [facility] CORONARY ARTERY BYPASS GRAFT 1994 SVG>LAD, SVG>OM, SVG>RCA (she thought she had 4 grafts, which has been on her records for years, but only 3 vein grafts present on cath 12/27/17 KNEE ARTHROPLASTY Right KNEE JOINT MANIPULATION Bilateral PARTIAL HIP ARTHROPLASTY Right rist Right TRANSTHORACIC ECHOCARDIOGRAM 12/2017 EF 40-45%, mild MR, mild TR, tr NM, RVSP 58-63 Family History Problem Relation Age of Onset Coronary Artery Disease Mother 60 [place] Alzheimer's disease Brother Diabetes Mellitus II Brother Thyroid disease Daughter Social History Social History Marital status: Spouse name: N/A Number of children: N/A Years of education: N/A Occupational History 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 | | [...]
--- OUTSIDE RECORDS SUMMARY | ~2019-02-11 | XMS | Clinical Summary ---
Demographics + + + | Address | [address] | | | [place] [address] | + + + | Home Phone | | + + + | Preferred Language | Unknown | + + + | Marital Status | | + + + | Confucianism Affiliation | 1041 | + + + | Race | Unknown | + + + | Ethnic Group | Unknown | + + + Author + + + | Author | [employer] [facility] (Historical as of | | | 12-31-18) | + + + | Organization | [facility] (Historical as of | | | 12-31-18) [...] Team Providers + +------+ + | Care Claims Counsel Name | Role | Phone | + [...] | | | | | | type ([facility]) | | | | | | | [...] | | | | | | type ([facility]) | | | | | | | [...] Overview: intial AICD 2004, generator change 03/27/11, [place] | | Scientific Telogen E110, s# [id number]; RV Lead - Guidant 0184, s# | | [id number] (08/15/03); RA Lead - Guidant Fineline II EZ Sterox 4469, | | s# [id number] (08/15/03) | + + + + + | Ventricular tachycardia, paroxysmal (HCC) | 05/17/2003 | + + + + + | Overview: with Syncope, + EPS for inducible VT - 08/14/03 | + + + + + | 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 | + + + | Coronary artery disease involving [place] coronary artery | | + + + [...] + + + + + | Overview: [employer] | | Telogen model E110, serial number [id number] | + + Encounters +--------+ + + [...] | 2018 | Requisition | | Y, Bridal Gown Fitter | asthma severity, | | | | | | unspecified whether | | | | | | complicated, | | | | | | unspecified whether | | | | | | persistent | +--------+ + + + + | 12/16/ | Orders Only | | Ct Leonardo, | | | 2018 | | | GENERATION MANAGER | | +--------+ + + + + [...] | Coronary Artery | Mother | | NH | | Disease | | | | [...] Nguyen | | | | | | [place] [address] | | | | | | [phone] | | | | | | | [...] Corey | [place] | | 08/30/ | [id number] | | 12/27/2017Implanted: | | ry | SCIENTIFIC | | 2018 | [id number] | | 12/27/2017 by Aquiles Morris, | | | LARRY - BSCI | | | 50 / | | MD (Quantity not on file) | | | | | | /[id number] | | | | | | | | 257 | + +-------+--------+ +--------+--------+--------+ | Synergy 3.5 X | Stent | Corey | [place] | | 08/30/ | [id number] | | 12/27/2017Implanted: | | ry | SCIENTIFIC | | 2019 | [id number] | | 12/27/2017 by Aquiles Morris, | | | LARRY - BSCI | | | 50 / | | MD (Quantity not on file) | | | | | | /[id number] | | | | | | | [...] + from Last 3 Months Results Allergens, [facility] 14 (12/16/2018 10:42 AM) + + [...] | + + + + + | ALLERGEN,SENEGALESE | <0.10Comment: Reference | kU/L | [facility] [...] | [address] | [place] [address] | | + + + + + [...] + + + | [facility] | [address] | [place] [address] | [phone] | | LABORATORY | Blvd. | | [...] | [address] | [place] [address] | | + + + + + [...] +------+-------+ + | MEDICARE | MEDICA | [id number] | | | [address] | | | RE | | | | [place] [address] | | | IP-OP | | | | | + +--------+ +------+-------+ + | MEDICAID | MEDICA | [id number] | | | [address] | | | ID | | | | [place] | | | [place] | | | | [address] | + +--------+ +------+-------+ + | /[facility] | YELLOW | [id number] | | | | | PLANS | [...] | Self | [birth year] | Home: | [address] | | | al/Fam | | 1941 | [phone] [place] | | | [place] | | | [address] | [address] | + +--------+ +--------+ + +
--- OUTSIDE RECORDS SUMMARY | ~2019-02-11 | XMS | Encounter Summary ---
Demographics + + + | Address | [address] | | | [place] [address] | + + + | Home Phone | | + + + | Preferred Language | Unknown | + + + | Marital Status | | + + + | Gnosticism Affiliation | 1041 | + + + | Race | Unknown | + + + | Ethnic Group | Unknown | + + + Author + + + | Author | [employer] (Historical as of | | | 12-31-18) | + + + | Organization | [facility] [employer] (Historical as of | | | 12-31-18) [...] Team Providers + +------+ + | Care Corporate Travel Agent Name | Role | Phone | + [...] Check | | 2019 | | Cardiology [place] | [address] | (Pacemaker Check ) | | | | [address] | [address] | | | | | [place], [place] | [place] [address] | | | | | [address] | [phone] | | | | | [phone] | | | +--------+ + + + [...] Nguyen | | | | | | [place] [address] | | | | | | [phone] | | | | | | | | +--------+ + + + + | 03/13/ | Documentati | Cardiology | | | | 2019 | on Only | | | | +--------+ + + + + as of this encounter Visit Diagnoses Not on filein this encounter"
--- OUTSIDE RECORDS SUMMARY | ~2019-02-11 | XMS | Encounter Summary ---
Demographics + + + | Address | [address] | | | [place] [address] | + + + | Home Phone | | + + + | Preferred Language | Unknown | + + + | Marital Status | | + + + | Oriental Orthodox Affiliation | 1041 | + + + | Race | Unknown | + + + | Ethnic Group | Unknown | + + + Author + + + | Author | [employer] [facility] (Historical as of | | | 12-31-18) | + + + | Organization | [facility] (Historical as of | | | 12-31-18) [...] Team Providers + +------+ + | Care Flash Drier Operator Name | Role | Phone | [...] | | | BS ICD 6 | [facility] | Cardiology | | | | | month | [place] [address] | | | | | Procedures | [address] | [address] | | | | | CRD ICD | [place], | [address] | | | | | CHECK | [place] [address] | [place] | | | | | | Phone: | [place] [address] | | | | | | [phone] | Phone: | | | | | | Fax: | [phone] | | | | | | [phone] | Fax: | | | | | | | [phone] | +--------+--------+ + + + + Encounter Details +--------+ + + + + | Date | Type | Department | Care Team | Description | +--------+ + + + + | 12/06/ | Documentati | [facility] | | Automatic | | 2019 | on Only | Cardiology [place] | | Implantable | | | | [address] | | Cardioverter | | | | [address] | | Defibrillator | | | | [place] [address] | | (in-office) | | | | [phone] | | | +--------+ + + + [...] [place] Primary electrophysiology provider: Erin Caba 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 Testing performed by: Сергей Mooney, [employer] Associated attestation - Barak Caba MD - [...] Nguyen | | | | | | [place] [address] | | | | | | [phone] | | | | | | | [...]
--- OUTSIDE RECORDS SUMMARY | ~2019-02-11 | XMS | Encounter Summary ---
Demographics + + + | Address | [address] | | | [place] [address] | + + + | Home Phone [...] Team Providers + +------+ + | Care Auto Clutch Specialist Name | Role | Phone | + +------+ + | Roxana Barajas PA-C | PCP | Unavailable | + +------+ + Encounter Details +--------+ + + + + | Date | Type | Department | Care Team | Description | +--------+ + + + + | 12/30/ | Orders Only | [facility] | Dawn Burrows | Essential (primary) | | 2019 | | CARDIOLOGY [place] | [address] | hypertension; Mixed | | | | [address] | [address] | hyperlipidemia | | | | [address] | [place] [address] | | | | | [place] | [phone] | | | | | [address] | | | | | | [phone] | | | +--------+ + + + [...] | | | | | [place] [address] | | | | | | [phone] | | | | | | | [...]
--- OUTSIDE RECORDS SUMMARY | ~2019-02-11 | XMS | Encounter Summary ---
Demographics + + + | Address | [address] | | | [place] [address] | + + + | Home Phone | | + + + | Preferred Language | Unknown | + + + | Marital Status | | + + + | Zoroastrianism Affiliation | 1041 | + + + | Race | Unknown | + + + | Ethnic Group | Unknown | + + + Author + + + | Author | [facility] | | | and [place] | + + + | Organization | [facility] | | [...] Team Providers + +------+ + | Care Environmental Designer Name | Role | Phone | + [...] MD [address] | | | | | [place], [place] | [address] | | | | | [address] | [place] [address] | | | | | [phone] | [phone] | | | | | | | [...] [address] | | | | | | [place] [address] | | | | | | [phone] | | | | | | | [...]
--- OUTSIDE RECORDS SUMMARY | ~2019-02-11 | XMS | Clinical Summary ---
Demographics + + + | Address | [address] | | | [place] [address] | + + + | Home Phone | | + + + | Preferred Language | Unknown | + + + | Marital Status | | + + + | Congregational Affiliation | 1041 | + + + | Race | Unknown | + + + | Ethnic Group | Unknown | + + + Author + + + | Author | [facility] | | | and [place] | + + + | Organization | [facility] | | | [...] Providers + +------+ + | Care Director Surface Transportation Name | Role | Phone | + [...] + + | Coronary artery disease involving napaimute coronary artery | 12/13/2018 | + + [...] Overview: intial AICD 2003, generator change 03/27/11, [place] | | Scientific Telogen E110, s# [id number]; RV Lead - Guidant 0184, s# | | [id number] (08/15/03); RA Lead - Guidant Fineline II EZ Sterox 4469, | | s# [id number] (08/15/03) | + + + + + [...] | Coronary artery | Mother | | NE | | disease | | | | [...] [place] | | | | | | [place] [address] | | | | | | [phone] | | | | | | | [...] +--------+ +---------+--------+ | MEDICARE | MEDICA | [id number] | 11/15/19 | [phone] | | Medica | | | RE | | 04-Pre | 5 | | re | | | PART A | | sent | | | | | | AND B | | | | | | + +--------+ +--------+ +---------+--------+ | [facility] | IHS | [phone] | 05/18/19 | | | Indemn | | SERVICE | YELLOW | | 13-Pre | | | ity | | | HAWK | | sent | | | | + +--------+ +--------+ +---------+--------+ | MEDICAID [place] | MEDICA | [id number] | | [phone] | | Medica | [...] Person | Self | [birth year] | | [address] | | | al/Fam | | 1941 | [phone] | [place], [place] | | | [place] | | | 7 (Home) | [address] | + +--------+ +--------+ + + | Yuliana Galindo | Person | Self | [birth year] | | [address] | | | al/Fam | | 1941 | [phone] | [place], [place] | | | [place] | | | 7 ([place]) | [address] | + +--------+ +--------+ + + Advance Directives Patient has advance care planning documents on file. For more information, please contact:[facility] [place] [address]
--- OUTSIDE RECORDS SUMMARY | ~2019-02-11 | XMS | Clinical Summary ---
Demographics + + + | Address | [address] | | | [place] [address] | + + + | Home Phone | | + + + | Preferred Language | Unknown | + + + | Marital Status | | + + + | Orthodoxy Affiliation | 1041 | + + + | Race | Unknown | + + + | Ethnic Group | Unknown | + + + Author + + + | Author | [employer] [facility] (Historical as of | | | 12-31-18) | + + + | Organization | [facility] (Historical as of | | | 12-31-18) [...] Team Providers + +------+ + | Care Dock Operations Supervisor Name | Role | Phone | [...] | | | | | | type ([facility]) | | | | | | [...] | | | | | | type ([facility]) | | | | | | [...] Overview: intial AICD 2004, generator change 03/27/11, [place] | | Scientific Telogen E110, s# [id number]; RV Lead - Guidant 0184, s# | | [id number] (08/15/03); RA Lead - Guidant Fineline II EZ Sterox 4469, | | s# [id number] (08/15/03) | + + + + + | Ventricular tachycardia, paroxysmal (HCC) | 05/17/2003 | + + + + + | Overview: with Syncope, + EPS for inducible VT - 08/14/03 | + + + + + | 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 | + + + | Coronary artery disease involving eyak coronary artery | | + + + [...] + + + + + | Overview: [employer] | | Telogen model E110, serial number [id number] | + + Encounters +--------+ + + [...] | 2018 | Requisition | | Y, Hash Slinger | asthma severity, | | | | | | unspecified whether | | | | | | complicated, | | | | | | unspecified whether | | | | | | persistent | +--------+ + + + + | 12/16/ | Orders Only | | Ct Leonardo, | | | 2018 | | | ROUTE CONTRACTOR | | +--------+ + + + + [...] | Coronary Artery | Mother | | [place] | | Disease | | | | [...] Nguyen | | | | | | [place] [address] | | | | | | [phone] | | | | | | | [...] Corey | [place] | | 08/30/ | [id number] | | 12/27/2017Implanted: | | ry | SCIENTIFIC | | 2018 | [id number] | | 12/27/2017 by Aquiles Morris, | | | LARRY - BSCI | | | 50 / | | MD (Quantity not on file) | | | | | | /[id number] | | | | | | | | 257 | + +-------+--------+ +--------+--------+--------+ | Synergy 3.5 X | Stent | Corey | [place] | | 08/30/ | [id number] | | 12/27/2017Implanted: | | ry | SCIENTIFIC | | 2019 | [id number] | | 12/27/2017 by Aquiles Morris, | | | LARRY - BSCI | | | 50 / | | MD (Quantity not on file) | | | | | | /[id number] | | | | | | | [...] + from Last 3 Months Results Allergens, [facility] 14 (12/16/2018 10:42 AM) + + [...] | + + + + + | ALLERGEN,MALDIVIAN | <0.10Comment: Reference | kU/L | [facility] [...] | [address] | [place] [address] | | + + + + + [...] + + + | [facility] | [address] | [place] [address] | [phone] | | LABORATORY | Blvd. | | [...] | [address] | [place] [address] | | + + + + + [...] +------+-------+ + | MEDICARE | MEDICA | [id number] | | | [address] | | | RE | | | | [place] [id number] | | | IP-OP | | | | | + +--------+ +------+-------+ + | MEDICAID | MEDICA | [id number] | | | [address] | | | ID | | | | [place] | | | [place] | | | | [address] | + +--------+ +------+-------+ + | /[facility] | YELLOW | [id number] | | | | | PLANS | [...] | Self | [birth year] | Home: | [address] | | | al/Fam | | 1941 | [phone] [place] | | | [place] | | | [address] | [address] | + +--------+ +--------+ + +
--- OUTSIDE RECORDS SUMMARY | ~2019-02-11 | XMS | Encounter Summary ---
Demographics + + + | Address | [address] | | | [place] [address] | + + + | Home Phone | | + + + | Preferred Language | Unknown | + + + | Marital Status | | + + + | Nondenominational Affiliation | 1041 | + + + | Race | Unknown | + + + | Ethnic Group | Unknown | + + + Author + + + | Author | [employer] (Historical as of | | | 12-31-18) | + + + | Organization | [facility] [employer] (Historical as of | | | 12-31-18) [...] Team Providers + +------+ + | Care Supply Service Worker Name | Role | Phone | [...] | Pulmonology | Diagnoses | Rani, | [facility] | | | | | Chronic | Zheng | Pulmonary | | | | | obstructive | Eddie Bowden MD | Function Lab | | | | | pulmonary | [address] | [address] | | | | | disease, | [address] | Blvd[address] | | | | | unspecified | [address] | [place], [place] | | | | | COPD type | [place], [place] | [address] Phone: | | | | | ([facility]) | [address] | [phone] | | | | | Procedures | Phone: | Fax: | | | | | Complete PFT | [phone] | [phone] | | | | | - Pre & | Fax: | | | | | | Post | [phone] | | | | | | Spirometry, [...] | 12/16/ | Office | [facility] | Zheng Saravia | Chronic obstructive | | 2019 | Visit | Pulmonology [address] | Eddie Bowden MD [address] | pulmonary disease, | | | | [address] | [address] | unspecified COPD | | | | [place], [place] | [place] [address] | type (HCC) (Primary | | | | [address] | [phone] | Dx); Tobacco abuse; | | | | [phone] | | Asthma, unspecified | | | [...] from: Roxana Barajas PA-C [address] [place] [address] Referral reason: Chief Complaint Patient presents with [...] panic attacks Asthma CHF (congestive heart failure) ([facility]) chronic systolic heart failure, EF was 27% in the past, improved to 50-55% on echo 02/18/15 Community acquired pneumonia 2011 COPD (chronic obstructive pulmonary disease) ([facility]) h/o chronic bronchitis, long h/o tobacco abuse Coronary artery disease involving reno-sparks coronary artery s/p CABG x3 (SVG to LAD, SVG to RCA, SVG to OM3) 1994, s/p KERA to SVG to OM3 01/01 Diabetes mellitus type 2 in obese ([facility]) diet controlled History of syncope 2003 secondary to VT 2003, one recurrent episode remotely since her AICD was implanted. Hyperlipidemia Hypertension Ischemic dilated cardiomyopathy (HCC) EF was 27% on echo 08/01/03, improved to 50-55% on echo 02/18/15 Old [place] (myocardial infarction) 1993 Osteoarthritis Pulmonary embolism (HCC) [...] PLACEMENT intial AICD 2003, generator change 03/27/11, [place] Scientific Telogen E110, s# [id number]; R V Lead - Guidant 0184, s# [id number] (08/15/03); RA Lead - Guidant Fineline II EZ Sterox 4469, s # [id number] (08/15/03) CARDIAC DEFIBRILLATOR REMOVAL 03/27/2011 implanted 08/15/03, generator was at [facility] CORONARY ARTERY BYPASS GRAFT 1994 SVG>LAD, SVG>OM, SVG>RCA (she thought she had 4 grafts, which has been on her records for years, but only 3 vein grafts present on cath 12/27/17 KNEE ARTHROPLASTY Right KNEE JOINT MANIPULATION Bilateral PARTIAL HIP ARTHROPLASTY Right rist Right TRANSTHORACIC ECHOCARDIOGRAM 12/2017 EF 40-45%, mild MR, mild TR, tr NE, RVSP 58-63 Family History Problem Relation Age of Onset Coronary Artery Disease Mother 60 [place] Alzheimer's disease Brother Diabetes Mellitus II Brother Thyroid disease Daughter Social History Social History Marital status: Spouse name: N/A Number of children: N/A Years of education: N/A Occupational History 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 | | [...]
--- OUTSIDE RECORDS SUMMARY | ~2019-02-11 | XMS | Clinical Summary ---
Demographics + + + | Address | [address] | | | [place] [address] | + + + | Home Phone | | + + + | Preferred Language | Unknown | + + + | Marital Status | | + + + | Moravian Affiliation | 1041 | + + + | Race | Unknown | + + + | Ethnic Group | Unknown | + + + Author + + + | Author | [facility] | | | and [place] | + + + | Organization | [facility] | | | [...] Team Providers + +------+ + | Care Inside Outside Sales Representative Name | Role | Phone | [...] + + | Coronary artery disease involving gakona coronary artery | 12/13/2018 | + + [...] Overview: intial AICD 2003, generator change 03/27/11, [place] | | Scientific Telogen E110, s# [id number]; RV Lead - Guidant 0184, s# | | [id number] (08/15/03); RA Lead - Guidant Fineline II EZ Sterox 4469, | | s# [id number] (08/15/03) | + + + + + [...] | Coronary artery | Mother | | [place] | | disease | | | | [...] [address] | | | | | | [place] [address] | | | | | | [phone] | | | | | | | [...] +--------+ +---------+--------+ | MEDICARE | MEDICA | [id number] | 11/15/19 | [phone] | | Medica | | | RE | | 04-Pre | 5 | | re | | | PART A | | sent | | | | | | AND B | | | | | | + +--------+ +--------+ +---------+--------+ | [facility] | IHS | [phone] | 05/18/19 | | | Indemn | | SERVICE | YELLOW | | 13-Pre | | | ity | | | HAWK | | sent | | | | + +--------+ +--------+ +---------+--------+ | MEDICAID [place] | MEDICA | [id number] | | [phone] | | Medica | [...] Person | Self | [birth year] | | [address] | | | al/Fam | | 1941 | [phone] | [place], [place] | | | shavon | | | [address] (Home) | [address] | + +--------+ +--------+ + + | Yuliana Galindo | Person | Self | [birth year] | | [address] | | | al/Fam | | 1941 | [phone] | [place], [place] | | | shavon | | | [address] ([place]) | [address] | + +--------+ +--------+ + + Advance Directives Patient has advance care planning documents on file. For more information, please contact:[facility] [place] [address]
--- OUTSIDE RECORDS SUMMARY | ~2019-02-11 | XMS | Encounter Summary ---
Demographics + + + | Address | [address] | | | [place] [address] | + + + | Home Phone | | + + + | Preferred Language | Unknown | + + + | Marital Status | | + + + | Sabianist Affiliation | 1041 | + + + [...] Providers + +------+ + | Care Continuous Dryout Operator Name | Role | Phone | + +------+ + | Roxana Barajas PA-C | PCP | Unavailable | + +------+ + Encounter Details +--------+ + + + + | Date | Type | Department | Care Team | Description | +--------+ + + + + | 12/30/ | Orders Only | [facility] | Dawn Burrows | Essential (primary) | | 2019 | | CARDIOLOGY [place] | [address] | hypertension; Mixed | | | | [address] | [address] | hyperlipidemia | | | | [address] | [place] [address] | | | | | [place] | [phone] | | | | | [address] | | | | | | [phone] | | | +--------+ + + + [...] | | | | | [place] [address] | | | | | | [phone] | | | | | | | [...]
--- OUTSIDE RECORDS SUMMARY | ~2019-02-11 | XMS | Encounter Summary ---
Demographics + + + | Address | [address] | | | [place] [address] | + + + | Home Phone | | + + + | Preferred Language | Unknown | + + + | Marital Status | | + + + | Caodaism Affiliation | 1041 | + + + [...] Team Providers + +------+ + | Care Blueprint Tracer Name | Role | Phone | + [...] MD [address] | | | | | [place], [place] | [address] | | | | | [address] | [place] [address] | | | | | [phone] | [phone] | | | | | | | [...] [address] | | | | | | [place] [address] | | | | | | [phone] | | | | | | | [...]
--- OUTSIDE RECORDS SUMMARY | ~2019-02-11 | XMS | Encounter Summary ---
Demographics + + + | Address | [address] | | | [place] [address] | + + + | Home Phone | | + + + | Preferred Language | Unknown | + + + | Marital Status | | + + + | Lutheran Affiliation | 1041 | + + + | Race | Unknown | + + + | Ethnic Group | Unknown | + + + Author + + + | Author | [facility] (Historical as of | | | 12-31-18) | + + + | Organization | [facility] (Historical as of | | | 12-31-18) [...] Team Providers + +------+ + | Care Agricultural Extension Officer Name | Role | Phone | + +------+ + | Roxana Barajas PA-C | PCP | | + +------+ + Encounter Details +--------+ + + + + | Date | Type | Department | Care Team | Description | +--------+ + + + + | 12/16/ | Orders Only | [facility] | [address], | | | 2018 | | Pulmonology [address] | INSTITUTIONAL COOK | | | | | [address] | | | | | | [place] | | | | | | [address] | | | | | | [phone] | | | +--------+ + + + [...] Nguyen | | | | | | [place] [address] | | | | | | [phone] | | | | | | | | +--------+ + + + + | 03/13/ | Documentati | Cardiology | | | | 2018 | on Only | | | | +--------+ + + + + as of this encounter Visit Diagnoses Not on filein this encounter"
--- OUTSIDE RECORDS SUMMARY | ~2019-02-11 | XMS | Encounter Summary ---
Demographics + + + | Address | [address] | | | [place] [address] | + + + | Home Phone | | + + + | Preferred Language | Unknown | + + + | Marital Status | | + + + | Christian Affiliation | 1041 | + + + | Race | Unknown | + + + | Ethnic Group | Unknown | + + + Author + + + | Author | [facility] (Historical as of | | | 12-31-18) | + + + | Organization | [facility] (Historical as of | | | 12-31-18) [...] Team Providers + +------+ + | Care Psychiatric Nursing Assistant Name | Role | Phone | + +------+ + | Roxana Barajas PA-C | PCP | | + +------+ + Encounter Details +--------+ + + + + | Date | Type | Department | Care Team | Description | +--------+ + + + + | 12/16/ | Orders Only | [facility] | [address], | | | 2018 | | Pulmonology [address] | FASHION PHOTOGRAPHER | | | | | [address] | | | | | | [place] | | | | | | [address] | | | | | | [phone] | | | +--------+ + + + [...] Nguyen | | | | | | [place] [address] | | | | | | [phone] | | | | | | | | +--------+ + + + + | 03/13/ | Documentati | Cardiology | | | | 2018 | on Only | | | | +--------+ + + + + as of this encounter Visit Diagnoses Not on filein this encounter"
--- OUTSIDE RECORDS SUMMARY | ~2019-02-11 | XMS | Encounter Summary ---
Demographics + + + | Address | [address] | | | [place] [address] | + + + | Home Phone | | + + + | Preferred Language | Unknown | + + + | Marital Status | | + + + | Judaism Affiliation | 1041 | + + + | Race | Unknown | + + + | Ethnic Group | Unknown | + + + Author + + + | Author | [facility] (Historical as of | | | 12-31-18) | + + + | Organization | [facility] (Historical as of | | | 12-31-18) [...] Team Providers + +------+ + | Care Oracle R12 Developer Name | Role | Phone | [...] Check | | 2019 | | Cardiology [place] | [address] | (Pacemaker Check ) | | | | [address] | [address] | | | | | [place], [place] | [place] [address] | | | | | [address] | [phone] | | | | | [phone] | | | +--------+ + + + [...] Nguyen | | | | | | [place] [address] | | | | | | [phone] | | | | | | | | +--------+ + + + + | 03/13/ | Documentati | Cardiology | | | | 2019 | on Only | | | | +--------+ + + + + as of this encounter Visit Diagnoses Not on filein this encounter"
--- OUTSIDE RECORDS SUMMARY | ~2019-02-11 | XMS | Encounter Summary ---
Demographics + + + | Address | [address] | | | [place] [address] | + + + | Home Phone | | + + + | Preferred Language | Unknown | + + + | Marital Status | | + + + | Jewish Affiliation | 1041 | + + + | Race | Unknown | + + + | Ethnic Group | Unknown | + + + Author + + + | Author | [facility] (Historical as of | | | 12-31-18) | + + + | Organization | [facility] (Historical as of | | | 12-31-18) [...] Team Providers + +------+ + | Care Msws Name | Role | Phone | + +------+ + | Roxana Barajas PA-C | PCP | | + +------+ + Encounter Details +--------+ + + + + | Date | Type | Department | Care Team | Description | +--------+ + + + + | 12/16/ | Lab | [facility] | Emily Chvais | Asthma, unspecified | | 2019 | Requisition | [address] | Y, Hot Knife Cutter | asthma severity, | | | | [place] [address] | | unspecified whether | | | | [phone] | | complicated, | | | | [...] Nguyen | | | | | | [place] [address] | | | | | | [phone] | | | | | | | [...] + + in this encounter Results Allergens, [place] 14 (12/16/2018 10:42 AM) + + + [...] | + + + + + | ALLERGEN,BENINESE | <0.10Comment: Reference | kU/L | [facility] [...] | [facility] | [address] | [place] [address] | | + + + + + [...] | [address] | [place] [address] | | + + + + + [...] | + + + + + | [facility] | [address] | [place] [address] | [phone] | | LABORATORY | [address] | | | + + + + + in this encounter Visit Diagnoses + + | Diagnosis | + + | Asthma, unspecified asthma severity, unspecified whether complicated, unspecified | | whether persistent | + +"
--- OUTSIDE RECORDS SUMMARY | ~2019-02-11 | XMS | Encounter Summary ---
Demographics + + + | Address | [address] | | | [place] [address] | + + + | Home Phone [...] Team Providers + +------+ + | Care Pier Master Assistant Name | Role | Phone | + +------+ + | Pcp, Prov Inactive | PCP | | + +------+ + Encounter Details +--------+ + + + + | Date | Type | Department | Care Team | Description | +--------+ + + + + | 12/13/ | Orders Only | [facility] | Provider, | | | 2018 | | SYSTEM GENERIC OP | [address] | | | | | CONVERSION [address] | [address] | | | | | [address] [place], [place] | [place] [address] | | | | | [address] | | | | | | [phone] | | | +--------+ + + + [...] | | | | | [place] [address] | | | | | | [phone] | | | | | | | | +--------+ + + + + | 03/13/ | Procedure | Cardiology | | | | 2018 | visit | | | | +--------+ + + + + documented as of this encounter Visit Diagnoses Not on filedocumented in this encounter"
--- OUTSIDE RECORDS SUMMARY | ~2019-02-11 | XMS | Encounter Summary ---
Demographics + + + | Address | [address] | | | [place] [address] | + + + | Home Phone | | + + + | Preferred Language | Unknown | + + + | Marital Status | | + + + | Adventist Affiliation | 1041 | + + + | Race | Unknown | + + + | Ethnic Group | Unknown | + + + Author + + + | Author | [facility] (Historical as of | | | 12-31-18) | + + + | Organization | [facility] (Historical as of | | | 12-31-18) [...] Team Providers + +------+ + | Care Dynamite Packing Machine Feeder Name | Role | Phone | + [...] Requisition | [address] | Y, Warehouse Consultant | asthma severity, | | | | [place] [address] | | unspecified whether | | | | [phone] | | complicated, | | | | [...] Nguyen | | | | | | [place] [address] | | | | | | [phone] | | | | | | | [...] + + in this encounter Results Allergens, [place] 14 (12/16/2018 10:42 AM) + + + [...] | + + + + + | ALLERGEN,ANGUILLAN | <0.10Comment: Reference | kU/L | [facility] [...] | [facility] | [address] | [place] [address] | | + + + + + [...] | [address] | [place] [address] | | + + + + + [...] | + + + + + | [facility] | [address] | [place] [address] | [phone] | | LABORATORY | [address] | | | + + + + + in this encounter Visit Diagnoses + + | Diagnosis | + + | Asthma, unspecified asthma severity, unspecified whether complicated, unspecified | | whether persistent | + +"
[~2019-02-11 15:05] MED LIST changes: -COMBIVENT INH14.7 GM INH; +COMBIVENT RESPIM4 GM INH; -ISOSORBIDE MONO30 M1 PO; +ISOSORBIDE MONO30 MG PO; -LEXAPRO20 MG; +LEXAPRO20 MG PO
--- OUTSIDE RECORDS SUMMARY | 2019-02-11 15:08 | XMS ---
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 Sindi VISIT COUNT (12 MO.) [address] [place] [address]. TOTAL 1 NOTE: Visits indicate total known visits. ED/UCC VISIT TRACKING (12 MO.) 02/11/2019 15:05 [facility] [place] TYPE: Emergency COMPLAINT: - SOB, COUGH INPATIENT VISIT TRACKING (12 MO.) No inpatient visits to display in this time frame [email or web address]
--- NOTE | 2019-02-11 19:50 | NUR ---
V/S TAKEN AND RECORDED.
--- NOTE | 2019-02-11 20:00 | NUR ---
ROUNDED ON pt. KEIRA RN IN ROOM ADMITING pt.
--- NOTE | 2019-02-11 21:00 | NUR ---
ASSESSMENT DONE. pt RESTING IN BED, SLEEPING, EASY TO WAKE. DENIES PAIN. PURSED LIP BREATHING ON 4L O2. ABX STARTED AND MED GIVEN (SEE MAR). CALL LIGHT WITHIN REACH. WATER PROVIDED.
--- NOTE | 2019-02-11 21:45 | NUR ---
IV PUMP BEEPING. SL. MED GIVEN (SEE MAR). pt EATING SANDWICH. NO REQUESTS AT THIS TIME. CALL LIGHT WITHIN REACH.
--- NOTE | 2019-02-12 00:46 | NUR ---
CALL LIGHT ON. pt UP TO VOID, DEPENDS SATURATED. 1PA FWW, STEADY ON FEET. RT IN ROOM TO DO NEB TREATMENT. EDUCATED ON COLLECTING SPUTUM SAMPLE. CALL LIGHT WITHIN REACH.
--- NOTE | 2019-02-12 02:15 | NUR ---
ASSESSMENT DONE. pt DENIED PAIN. STATED BREATHING WAS "OKAY". VITALS AND I&O RECORDED. NO REQUESTS AT THIS TIME. CALL LIGHT WITHIN REACH.
--- NOTE | 2019-02-12 04:15 | NUR ---
pt UP TO TOILET AND BACK TO BED. SOB WITH EXHERTION. WATER PROVIDED. NO FURTHER REQUESTS AT THIS TIME CALL LIGHT WITHIN REACH.
--- NOTE | 2019-02-12 05:38 | NUR ---
pt ARRIVED AT START OF SHIFT FROM ED. RECEIVING MULTIPLE NEB TREATMENTS, 4L O2 VIA HUMIDIFIED NC. 1PA FWW. INCONT OF URINE AT TIMES, DEPENDS AND PAD IN PLACE. DAILY WEIGHT. IV SL, IV ABX. TOLERATING 2GM SODIUM. USES CALL LIGHT APPROPRIATELY.
--- NOTE | 2019-02-12 06:55 | NUR ---
ATTEMPT X [address] PERIPHERAL IV, UNSUCCESSFUL
--- NOTE | 2019-02-12 08:02 | NUR ---
pt complaining of a headache. 08/24. gave 650mg tylenol po.
--- NOTE | 2019-02-12 08:51 | NUR ---
in room to assess pt. supervisor roving Sunil able to get IV started in pts right hand. Pt remains on 4l NC. Lung sound have rhonci and coarse crackles throughout.
--- NOTE | 2019-02-12 11:01 | NUR ---
INITIAL CASE MANAGEMENT ASSESMENT DONE. PATIENT VERBALIZES CONCERNS WITH PROGRESSIVE WEAKNESS SINCE ONSET OF COPD EXACERBATION. REPORTS USING MORE AND MORE OXYGEN AT HOME. LIVES ALONE AND HAS SOME SUPPORT FROM CHILDREN WHEN SHE REQUESTS IT. HAS WALKER AT HOME THAT SHE USES WITHIN HOUSE.
--- NOTE | 2019-02-12 11:50 | EKG ---
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
--- NOTE | 2019-02-12 12:04 | NUR ---
spoke with MD regarding pts blood sugar of 435. wanted to give 11units according to the sliding scale.
--- NOTE | 2019-02-12 14:16 | NUR ---
pt resting in bed watching. requesting to take a nap. afternoon assessment complete.
--- NOTE | 2019-02-12 14:21 | NUR ---
pt up to bathroom with fww and 1 person assist. pt short of breath with any activity. pumped oxygen up to 3.5 l with activity.
--- NOTE | 2019-02-12 16:10 | NUR ---
pt up to bathroom and back to bed. shortness of breath with activity. recovers quickly once at rest.
--- NOTE | 2019-02-12 17:19 | NUR ---
Pt remains on 2l NC. Needs 2-4 with ambulation. Neb treatments q4 hrs. Productive cough. IV solu-medrol. PO zithromax. 1 person assist with fww. increased blood surgars throughout shift.
--- NOTE | 2019-02-12 18:25 | NUR ---
Pt resting in bed watching TV. call light within reach. denies needs at this time. pt remains on 2l NC with a productive cough.
--- NOTE | 2019-02-12 19:25 | NUR ---
RECEIVED REPORT FROM ONUR BECKMAN. pt AMBULATING FROM TOILET TO BED WITH KELSEY SAGASTUME. SOB WITH EXHERNISHI. WHITEBOARD UPDATED. NO REQUESTS AT THIS TIME. CALL LIGHT WITHIN REACH.
--- NOTE | 2019-02-12 19:43 | NUR ---
DID PATIENT'S BLOOD SUGAR CHECK BEFORE SHE ATE DINNER.
--- NOTE | 2019-02-12 20:20 | NUR ---
ASSESSMENT DONE. MEDICATIONS GIVEN (SEE MAR). SCREEN PRINT OPERATOR IN ROOM FOR VITALS AND I&O. NO REQUESTS AT THIS TIME. CALL LIGHT WITHIN REACH.
--- NOTE | 2019-02-12 21:03 | NUR ---
ANSWERED CALL LIGHT. 1 PA TO THE BATHROOM USING WALKER AND BACK TO BED. CHANGED SOILED PULL UP. CALL LIGHT IN REACH.
--- NOTE | 2019-02-12 23:29 | NUR ---
PATIENT CALLED. 1 PA TO THE BATHROOM. PATIENT IS INCONTINENT. CHANGED PULL UP AND PERIPAD. PATIENT IS BACK IN BED. PATIENT ASKED SOMETHING TO EAT, C/O HUNGRY. NURSE NOTIFIED AND CALLED MASH PREPARATORY OPERATOR.
--- NOTE | 2019-02-12 23:57 | NUR ---
BROUGHT pt PROTEIN PACK AND SUGAR FREE JELLO, NO FURTHER REQUESTS AT THIS TIME. CALL LIGHT WITHIN REACH.
--- NOTE | 2019-02-13 01:37 | NUR ---
CALL LIGHT ON pt UP TO TOILET AND BACK TO BED. ASSESSMENT DONE. NO FURTHER REQUESTS AT THIS TIME. CALL LIGHT WITHIN REACH.
--- NOTE | 2019-02-13 03:21 | NUR ---
CALL LIGHT ON. pt NEEDS TO VOID, FINANCIAL WRITER IN ROOM.
--- NOTE | 2019-02-13 06:05 | NUR ---
IN TO GIVE MED (SEE MAR). pt URGENTLY UP TO VOID, WHILE AMBULATING pt HAD SUDDEN HEADACHE POINTING TO FOREHEAD. TYLENOL GIVEN WITH OTHER MED. pt SOB. REPORTED NOT FEELING WELL "I'M HAVING A BIT OF A SET BACK." DID NOT JOKE OR LAUGH HAD BEEN DOING EARLIER IN SHIFT. MD NOTIFED OF WEIGHT GAIN AND OBSERVED SYMPTOMS. NO NEW ORDERS AT THIS TIME.
--- NOTE | 2019-02-13 06:31 | NUR ---
pt RESTED ON AND OFF DURING SHIFT. REPORTED FEELING WORSE SHIFT PROGRESSED. MD AWARE. PRN PAIN MED FOR HEADACHE. ON 2-4L O2, SOB WITH EXHERTION. ACCU CHECK WITH SLIDING SCALE INSULIN. 1PA FWW. DAILY WEIGHT. IV SL, IV ABX AND PO ABX. OT AND PT. USES CALL LIGHT APPROPRIATLEY.
--- NOTE | 2019-02-13 07:42 | NUR ---
BEDSIDE REPORT RECEIVED PT AWAKE QUIET. BREATHING LABORED RN STATES SHE REPORTED TO D. PT DENIES DISCOFORTS [address] 3 LPM.
--- NOTE | 2019-02-13 08:52 | NUR ---
PT UP TO TOILET AMBULATES WITH SBA USING WALKER. PERSONAL CARES COMPLETED MOVES TO RECLINER FOR BREAKFAST. PT DENIES PAIN OR OTHER DISCOMFORTS. AGREES PRIOR HEADACHE HAS RESOLVED. CALL LIGHT AND NEEDED ITEMS AT CHAIR SIDE PT AGREES TO CALL FOR ANY NEEDS OR TO GET UP. 02 NC 3LPM. PT USES TRUMPET WITH PROMPTING. BREATHING APPEARS LESS LABORIOUS S/P NEB TREATMENTS WITH R/T
--- NOTE | 2019-02-13 10:35 | NUR ---
PT UP AND AMBULATES THE MYLES WITH P/T THEN BACK TO ROOM SITTING UP IN THE CHAIR. WELL TOLERATED. H20 AND NEEDED ITEMS IN REACH PT DENIES NEEDS AT THIS TIME
--- NOTE | 2019-02-13 11:15 | NUR ---
PATIENT UP TO BATHROOM AND BACK TO BED, 1PA FWW. PATIENT A LITTLE DIZZY WHEN STANDING UP. CALL LIGHT IN REACH. NO FURTHER NEEDS AT THIS TIME.
--- NOTE | 2019-02-13 12:46 | NUR ---
pt up on the edge of bed for noon meal. upbeat and talkative no requests
--- NOTE | 2019-02-13 13:58 | NUR ---
PATIENT UP TO BATHROOM AND BACK TO BED, 1PA FWW. CALL LIGHT IN REACH. NO FURTHER NEEDS AT THIS TIME.
--- NOTE | 2019-02-13 14:31 | NUR ---
PT RESTING EYES CLOSED APPEARS COMFORTABLE NO S/S OF DISTRESS OR DIFFICULTY BREATHING
[2019-02-13] MEDS ORDERED: LISINOPRIL10 MG PO (14:57)
[2019-02-13] MEDS ORDERED: VENTOLIN HFA18 GM INH (15:25)
[2019-02-13] MEDS ORDERED: MAG-OXIDE400 MG PO (15:27)
--- NOTE | 2019-02-13 15:28 | NUR ---
Medications reconciled using pharmacy records and patient interview. Several changes made namely, lisinopril dose now 10mg daily, she no longer takes allopurinol, montelukast or aspirin. She now take Magnesium for foot pain
--- NOTE | 2019-02-13 17:46 | NUR ---
PT UP FOR EVENING MEAL NO RESP DISTRESS NOTED CONTINUES TO USE HER TRUMPET AND I/S WITH REMINDERS.
--- NOTE | 2019-02-13 18:29 | NUR ---
PATIENT SITTING IN CHAIR EATING DINNER. CALL LIGHT IN REACH. NO FURTHER NEEDS AT THIS TIME.
--- NOTE | 2019-02-13 19:05 | NUR ---
CHARGE NURSE REPORT RECEIVED FROM JIMMY. PT IN BED, WITH NO NEEDS AT THIS TIME.
--- NOTE | 2019-02-13 19:35 | NUR ---
PT RESTING IN BED, WATCHING TV. SHIFT EXCHANGE RECIEVED FROM CHINO MOHR. NO NEEDS AT THIS TIME. CALL LIGHT IN REACH.
--- NOTE | 2019-02-13 20:43 | NUR ---
PT RESTING IN BED. ASSESSMENT, VS, I&O COMPLETED. PT UP TO TOILET AND BACK TO BED SBA, FWW. PT ASKED FOR AND GIVEN A MILK AND GRHAM CRACKER. NO NEES AT THIS TIME. CALL LIGHT IN REACH.
--- NOTE | 2019-02-13 21:23 | NUR ---
PT CALLED, NEEDED TO USE BATHROOM. SBA, EQUIPEMENT ASSIST. BACK TO BED, ALL PERSONAL ITEMS WITHIN REACH. NO OTHER NEEDS.
--- NOTE | 2019-02-13 22:00 | NUR ---
1 PA TO BATHROOM AND BACK TO BED USING WALKER. CALL LIGHT IN REACH.
--- NOTE | 2019-02-13 23:18 | NUR ---
PATIENT CALLLED. TOOK TO THE BATHROOM AND BACK TO BED.
--- NOTE | 2019-02-13 23:44 | NUR ---
PT RESTING IN BED WITH EYES CLOSED. RR RATE 20, UNEVEN, ACCESSORY MUSCLES USED. 3L NC. PT DOES NOT WAKE WHEN RN ENTERS ROOM. CALL LIGHT IN REACH.
--- NOTE | 2019-02-14 00:40 | NUR ---
SBA WITH FWW BACK TO BED FROM RESTROOM AFTER VOID. INCONTINENCE IN ATTENDS, PAD AND ATTENDS CHANGED. CALL LIGHT IN REACH. NO C/O SOB WITH AMBULATION, PT ON 3L OXYGEN BY NC.
--- NOTE | 2019-02-14 02:32 | NUR ---
CALL LIGHT ANSWERED, SBA WITH FWW TO RESTROOM FOR VOID, ATTENDS AND PAD CHANGED. PT COUGHING, C/O SOB, RT IN ROOM FOR PRN BREATHING TREAMENT AT THIS TIME.
--- NOTE | 2019-02-14 03:00 | NUR ---
PT AWAKE IN ROOM. RT IN ROOM TO GIVE BREATHING TX. ASSESSMENT COMPLETED. PT LAYING ON LEFT SIDE WITH HEAD ELEVATED WHILE RECIEVING TREATMENT. CMS INTACT. LUNG SOUNDS COURSE IN ALL LOBES. CALL LIGHT IN REACH.
--- NOTE | 2019-02-14 04:18 | NUR ---
TOOK TO THE BATHROOM. CHANGED INCONTINENT PULL UPS. PATIENT IS BACK IN BED. CALL LIGHT IN REACH.
--- NOTE | 2019-02-14 05:27 | NUR ---
PT SLEPT OFF AN ON THROUGH THE NIGHT. SHE WOKE WITH SOB X1. RT GAVE BREATHING TX WITH RELIEF. PT HAS BEEN UP TO URINATE FREQUENTLY. NC 3LPM. SBA, FWW, POSITION ON SIDE FOR ASPIRATION PREVENTION. SURE STEP WITH SLIDING SCALE. SL R HAND. DNR/DNI.
--- NOTE | 2019-02-14 06:00 | NUR ---
PT RESTING IN BED WITH EYES CLOSED . PT WAKES TO VOICE. VS AND I&O COMPLETED. PT UP TO TOILET TRY TO HAVE BM. PT EDUCATED ABOUT CALL LIGHT. PT VERBALIZES UNDERSTANDING OF CALL LIGHT USE.
--- NOTE | 2019-02-14 06:23 | NUR ---
BATHROOM CALL LIGHT ANSWERED, PT UNABLE TO HAVE BM. VOID, NO INCONTINENCE NOTED IN ATTENDS. SBA WITH FWW BACK TO BED. SITTING UP AT SIDE OF BED. CALL LIGHT IN REACH. 3L OXYGEN BY NC IN PLACE.
--- NOTE | 2019-02-14 07:41 | NUR ---
Pt up in chair, respirations even and non labored. Pt is on 3l oxygen. Pt denies pain and needs. Personal supplies and call light within reach.
--- NOTE | 2019-02-14 08:30 | NUR ---
Admin Tylenol 650mg po for reports of 8/10 headache.
--- NOTE | 2019-02-14 13:18 | NUR ---
PT WAS SITTING ON SIDE OF BED, LOOKING OUT WINDOW AND JUST FINISHING LUNCH. SHE BEGAN TO COUGH AND WAS STRUGGLING SOMEWHAT. PT MENTIONED THAT SHE WOULD LIKE TO SEE THE DELI SLICER TOMORROW. WILL INFORM HIM. PT REQUESTED PRAYER, WILL FOLLOW NEEDED
--- NOTE | 2019-02-14 14:00 | NUR ---
SPOKE WITH PATIENT IN ROOM. SHE IS UP IN CHAIR, JUST FINISHED SHOWERING WITH HELP OF STAFF. PATIENT VERY SOB WITH EXERTION, COUGHING OFTEN. PATIENT STATES SHE LIVES ALONE, HER DAUGHTER AND GRANDDAUGHTER COME BY AND HELP HER ON WEEKENDS, SHE STATES SHE HAS A CAREGIVER WHO COMES IN 5 HOURS A DAY MON-FRI. ASKED IF HER BREATHING IS BETTER TODAY, SHE STATES "NO, I THINK IT'S STILL KIND OF BAD". ASKED IF PATIENT WAS SENT HOME TODAY, WOULD SHE FEEL LIKE SHE COULD GO HOME. SHE STATES "OH NO, I DON'T THINK SO". ASKED IF SHE MIGHT WANT TO GO STAY WITH FAMILY FOR AWHILE, OR GO TO A REHAB PLACE, SHE STATES "I DON'T KNOW REALLY". ASKED IF I COULD CALL HER DAUGHTER. SHE IS OK WITH THIS.
--- NOTE | 2019-02-14 14:17 | NUR ---
Robitussin 10ml admin for cough.
--- NOTE | 2019-02-14 15:29 | NUR ---
PATIENT ASKED IF SHE WANTED ANY NICOTINE REPLACEMNT, PATIENT SOAID NO SHE WAS DOING FINE.
--- NOTE | 2019-02-14 15:41 | NUR ---
TWICE TRIED TO CALL PATIENTS DAUGHTER KIRAN BUSY BOTH TIMES. CALLED AND LEFT MESSAGE FOR TRACEE MORLEY RN [facility] NURSE.
--- NOTE | 2019-02-14 19:46 | NUR ---
SHIFT REPORT RECIEVED FROM HARLEEN MOHR. PT SITTING ON SIDE OF BED. PT STATES SHE COUGHS IF SHE LAYS BACK. PT PROVIDED WITH A WARM DRINK AND PRN COUGH MEDICATION. NO NEEDS AT THIS TIME. CALL LIGHT IN REACH.
--- NOTE | 2019-02-14 20:58 | NUR ---
PT SITTING ON SIDE OF BED, WATCHING TV. ASSESSMENT, VS AND I&O COMPLETED. IV FLUSHED. SCHEDULED MEDS GIVEN. NO OTHER NEEDS AT THIS TIME. CALL LIGHT IN REACH.
--- NOTE | 2019-02-14 22:42 | NUR ---
TOOK TO THE BATHROOM AND BACK TO BED. CALL LIGHT IN REACH.
--- NOTE | 2019-02-15 00:12 | NUR ---
PT RESTING IN BED ON RIGHT SIDE WITH HEAD ELEVATED. NC 3L. RR 20, UNEVEN, NON LABORED. CALL LIGHT IN REACH.
--- NOTE | 2019-02-15 01:07 | NUR ---
PATIENT CALLED TO USE THE BATHROOM. 1 PA USING WALKER. PATIENT IS BACK IN BED. REQUESTED FOR BREATHING TREATMENT.
--- NOTE | 2019-02-15 01:18 | NUR ---
PRIMARY RN NOTIFIED AND CALLED RT. PATIENT IS SITTING BY THE BED.
--- NOTE | 2019-02-15 01:22 | NUR ---
COTTON AGENT SINTA IN ROOM, SBA WITH FWW BACK TO BED. PT SITTING AT SIDE OF BED, C/O SOB, BREATHING LABORED, ACCESSORY MUSCLES IN USE. OXYGEN INCREASED TO 4L BY NC. PT STATES ABLE TO CATCH BREATH AFTER A MINUTE. RT KATRIN NOTIFIED BY PHONE FOR PRN BREATHING TREATMENT. OCCASIONAL COUGH, PRN COUGH MEDICATION ADMINISTERED REQUESTED. COFFEE PROVIDED. SPO2 SPOT CHECK 91% ON 4L OXYGEN BY NC. CALL LIGHT IN REACH.
--- NOTE | 2019-02-15 03:46 | NUR ---
PT SITTING ON EDGE OF BED. NC 4L. OCCASSIONAL COUGH WITH NGUYEN SPUTUM. ASSESSMENT COMPLETED. PT DENIES PAIN. PT DRINKING WARM DRINK TO HELP LOOSEN SECRETIONS. LUNG SOUNDS COURSE THROUGHOUT. PT DENIES ANY OTHER NEEDS, CALL LIGHT IN REACH.
--- NOTE | 2019-02-15 05:33 | NUR ---
PT HAS BEEN AWAKE OFF AND ON. OCCASIONAL COUGHING WITH SCANT, NGUYEN SPUTUM. SL R HAND FLUSHED EASILY. SBA, FWW. ADA DIET. BG WITH SLIDING SCALE, 7 UNITS HS. 4L NC. WARM COFFEE PROVIDED, PRN COUGH MED AND BREATHING TX GIVEN. UP FREQUENTLY TO VOID.
--- NOTE | 2019-02-15 06:16 | NUR ---
CALL LIGHT ANSWERED. SBA WITH FWW TO RESTROOM FOR VOID, ATTENDS CHANGED, INCONTINENT OF URINE. PT C/O SOB WITH AMBULATION. 4L OXYGEN BY NC IN PLACE. SITTING UP AT SIDE OF BED. NO REQUESTS AT THIS TIME. CALL LIGHT IN REACH.
--- NOTE | 2019-02-15 07:34 | NUR ---
Pt awake, alert and oriented x3. Pt on 4L oxygen at this time, resp even and non labored. Pt denies needs at this time. Personal supplies and call light wihtin reach.
--- NOTE | 2019-02-15 08:11 | NUR ---
PATIENT UP TO BATHROOM AND UP TO CHAIR TO EAT BREAKFAST. HANDS AND FACE WASHED ORAL CARE DONE. CALL BUTTON IN REACH. FRESH WATER GIVEN. NO OTHER NEEDS AT THIS TIME.
--- NOTE | 2019-02-15 10:00 | NUR ---
SPOKE WITH THANH [facility] RN FOR [facility]. SHE IS VERY FAMILIAR WITH PATIENT AND FAMILY. SHE STATES PATIENT DOES HAVE CAREGIVER DAILY AND HER FAMILY TAKES CARE OF HER THE REST OF THE TIME. SHE STATES PATIENT IS VERY RARELY ALONE. SHE STATES SHE IS CHRONICALLY LIMITED DUE TO HER MEDICAL CONDITIONS. SHE STATES SHE DOES GET AROUND WITH A WALKER, BUT DOESN'T USUALLY GO FAR. SHE STATES PATIENTS FAMILY IS VERY SUPPORTIVE AND HELPS HER WITH HER MEDICATIONS AND ALL HOUSE NEEDS. DISCUSSED THANH WILL CONTINUE TO FOLLOW PATIENT AFTER DISCHARGE.
--- NOTE | 2019-02-15 10:16 | NUR ---
CALL LIGHT ANSWERED. PATIENT USING BATHROOM. PATIENT'S ATTEND CHANGED. PATIENT BACKS TO BED. WARM BLANKET PROVIDED. CALL LIGHT WITHIN REACH. NO OTHER NEEDS AT THIS TIME
--- NOTE | 2019-02-15 11:13 | NUR ---
Cardiac rehab consult at this time.
--- NOTE | 2019-02-15 11:22 | NUR ---
Certified Heart Failure Nurse Notes: Diagnosis: COPD exacerbation History of heart failure with EF 25-30%. Admit BNP: 255 Minesh Inhibitor is prescribed. Beta Juan is not. Patient was able to state coating technician is Dr. Hewitt Weight monitoring: Patient states scale present in home. Does not currently weigh daily. Admit Wt.: 259.9 lb recommend daily weights for patient with known heart failure. Conferred with respiratory therapy and plan is for patient to attend outpatient Pulmonary Rehabilitation with heart failure education as needed.
--- NOTE | 2019-02-15 12:30 | NUR ---
SPOKE WITH PATIENT IN ROOM. PATIENT UP IN CHAIR WATCHING TV. DISCUSSED IF SHE STILL PLANS TO GO HOME AT DISCHARGE. DISCUSSED I HAVE NOT HEARD BACK FROM HER DAUGHTER BUT THAT I SPOKE WITH THANH RN FROM [facility]. DISCUSSED THAT THANH RN WILL FOLLOW UP WITH HER. DISCUSSED THAT IF THERAPY THINKS SHE MAY NEED HOME HEALTH WE CAN ARRANGE THAT. PATIENT STATES SHE HOPES TO GO HOME TOMORROW. PT STATES SHE FEELS "LITTLE BETTER TODAY". PATIENT FEELS SHE HAS ALL SHE NEEDS AT HOME IF DISCHARGED BUT STATES "DON'T THINK I'M READY TODAY". WILL CONTINUE TO FOLLOW.
--- NOTE | 2019-02-15 14:12 | NUR ---
PT ALERT, ORIENTED SITTING IN CHAIR AND WATCHING TV. SHE WAS PLEASANT, SEEMED PLEASED I STOPPED BY. PT DID MENTION THAT SHE DIDN'T SLEEP WELL LAST NIGHT. AMD WAS TRYING TO GET HER SPIROMETER TO 1K. CONTINUED TO GIVE ENCOURAGEMENT. PT STILL ON O2 NC. HAD PRAYER WITH PT, WILL FOLLOW NEEDED
--- NOTE | 2019-02-15 18:00 | NUR ---
PATIENT BACK TO BED WITH ONE PERSON ASSIST. CALL LIGHT IN REACH. NO OTHER NEEDS AT THIS TIME. ROOM PICKED UP.
--- NOTE | 2019-02-15 19:15 | NUR ---
PT SITTING AT SIDE OF BED, TALKING WITH RT AND BEING FITTED WITH AN OXYMASK AT 4L. SHIFT REPORT RECIEVED FROM HARLEEN MOHR. AAO. NO NEEDS AT THIS TIME. CALL LIGHT IN REACH.
--- NOTE | 2019-02-15 20:08 | NUR ---
ROUNDED CHARGE. PATIENT IS SITTING IN THE EDGE OF THE BED. PATIENT DENIES ANY COMMENTS, QUESTIONS, OR CONCERNS. NO NEEDS NOTED. CALL LIGHT IN REACH.
--- NOTE | 2019-02-15 20:42 | NUR ---
PT SITTING AT EDGE OF BED, DRINKING WARM COFFEE. OXYMASK 4L, SCHEDULED MEDS GIVEN. PRN COUGH MED GIVEN. ASSESSMENT, BG COMPETED. NO INSULIN GIVEN PER ORDER. LLL 2+ EDEMA, RLL 1+ EDEMA. CMS INTACT. PT DENIES PAIN. AAO. VSS. CALL LIGHT IN REACH.
--- NOTE | 2019-02-15 22:00 | NUR ---
PT BACK IN BED AFTER VOID. ADDITIONAL URINE HAT PLACED IN TOILET UNMEASURED VOID NOTED. RESTING WITH 4L OXYGEN BY OXYMASK IN PLACE. DENIES REQUESTS AT THIS TIME. CALL LIGHT IN REACH.
--- NOTE | 2019-02-16 00:43 | NUR ---
PT RESTING IN BED ON HER RIGHT SIDE, HEAD ELEVATED. RR 20, UNEVEN, UNLABORED. LIGHTS LOW, CALL LIGHT IN REACH.
--- NOTE | 2019-02-16 02:02 | NUR ---
PT CALLS TO USE BR. PT UP TO BR AND BACK TO BED, FWW, SBA. PT SITTING AT SIDE OF BED, OCCASIONAL COUGHING WITH SCANT, WHITE SPUTUM. PRN COUGH MED AND WARM DRINK PROVIDED. OXYMASK 4L. ASSESSMENT COMPLETED. CMS INTACT. LUNG SOUNDS COURSE THROUGHOUT. PT LAYING IN BED, HOB ELEVATED. NO FURTHER NEEDS. CALL LIGHT IN REACH.
--- NOTE | 2019-02-16 04:02 | NUR ---
PT RESTING IN BED WITH EYES CLOSED. HOB ELEVATED. OXYMASK 4L. RR 20, UNEVEN, NONLABORED. CALL LIGHT IN REACH.
--- NOTE | 2019-02-16 04:50 | NUR ---
PT HAS SLEPT ON AND OFF THIS SHIFT. PRN COUGH MED PROVIDED. SBA, FWW TO BEDSIDE COMMODE FOR OCCASIONAL URINATION. BLE 1+ PITTING EDEMA. HOB ELEVATED ALL NIGHT WITH PT SLEEPING ONLEFT SIDE. OXYMASK 4L. BG REQUIRED NO COVERAGE HS. WARM COFFEE PROVIDED WHEN PT REQUESTS. OCCASIONAL COUGH WITH SCANT, THICK, WHITE SPUTUM.
--- NOTE | 2019-02-16 05:17 | NUR ---
PT HAS SLEPT ON AND OFF THIS SHIFT. PRN COUGH MED PROVIDED. SBA, FWW TO BR. BLE 1+ PITTING EDEMA. HOB ELEVATED OXYMASK 4L. BG REQUIRED NO CEVERAGE HS. WARM COFFEE PROVIDED AT PT REQUEST. OCCASSIONAL COUGH WITH SCANT, THICK, WHITE SPUTUM.
--- NOTE | 2019-02-16 06:51 | NUR ---
PT CALLS FROM BR TO GO BACK TO BED. FWW, SBA BACK TO BED. NC 4L. NO OTHER NEEDS AT THIS TIME. CALL LIGHT IN REACH.
--- NOTE | 2019-02-16 07:38 | NUR ---
MORNING CARE DONE. PT WASHES FACE AND BRUSHES TEETH/DENTURES. JYOTHI CARE DONE. 1PA, FWW UP TO CHAIR. CBG = 129. COFFEE AND WARM BLANKETS PROVIDED. PT ANTICIAPTING BREAFKAST ARRIVAL SOON. CALL LIGHT WITHIN REACH.
--- NOTE | 2019-02-16 07:40 | NUR ---
0702: Report recieved from Esther MOHR. Pt sleeping at this time.
--- NOTE | 2019-02-16 08:39 | NUR ---
PT SITTING IN HER CHAIR EATING BREAKFAST. SHE DENIES ANY PROBLEMS OR PAIN OTHER THAT SOME SLIGHT SOB WHICH SHE STATES IS BASELINE. SAT IS 91% ON 3L VIA NC AT THIS TIME.
[2019-02-16] MEDS ORDERED: CEFUROXIME500 MG PO (09:32)
[2019-02-16] MEDS ORDERED: IPRAT-ALBUT 0.5-3 ML INH (09:33)
[2019-02-16] MEDS ORDERED: LIPITOR40 MG PO (09:34)
[2019-02-16] MEDS ORDERED: METOPROLOL SUCC25 MG PO (09:34)
[2019-02-16] MEDS ORDERED: FUROSEMIDE20 MG PO (09:35)
--- NOTE | 2019-02-16 09:35 | NUR ---
VITALS TAKEN, I/O RECORDED. PT REMAINS UP TO CHAIR. PT STATES SHE IS "READY TO GO HOME NOW." NO ADDITIONAL REQUESTS OR COMPLAINTS AT THIS TIME. CALL LIGHT WITHIN REACH.
[2019-02-16] MEDS ORDERED: TUSSIN DM SYRU118 ML PO (09:36)
[2019-02-16] MEDS ORDERED: METFORMIN HCL500 MG PO (09:37)
[2019-02-16] MEDS ORDERED: PREDNISONE20 MG PO (09:37)
[2019-02-16] MEDS ORDERED: PERFOROMIS20 MCG/2 M INH (09:38)
[2019-02-16] MEDS ORDERED: PULMICORT0.5 MG/2 M INH (09:39)
[2019-02-16] MEDS ORDERED: COMBIVENT RESPIM4 GM INH (09:40)
[2019-02-16] MEDS ORDERED: ASPIRIN EC81 MG PO (09:40)
--- NOTE | 2019-02-16 10:45 | NUR ---
PATIENT WAS IN BATHROOM. WILL RETURN TO TALK WITH HER REGARDING DISCHARGE.
--- NOTE | 2019-02-16 12:05 | NUR ---
FAXED RX FOR NEBULIZER, OXYGEN AND OXYGEN QUALIFIER TO [facility] WITH [facility]. FAX CONFIRMATION RECEIVED 02/16/19 1156AM.
--- NOTE | 2019-02-16 12:15 | NUR ---
PT RESTING IN HER CHAIR AWAITING HER LUNCH. SHE DENIES ANY SOB AT THIS TIME.
--- NOTE | 2019-02-16 13:05 | NUR ---
CALLED MEDICAL FLOOR TO UPDATE THAT I'M STILL WORKING ON OXYGEN/NEBULIZER ORDER. THEY STATE THEY ALREADY DISCHARGED PATIENT.
--- NOTE | 2019-02-16 13:25 | NUR ---
PT SITTING IN CHAIR, EATING LUNCH AND WATCHING TV. SHE EXPRESSED WITH MARIJA THAT SHE WILL BE DC'D TODAY! GAVE ENCOURAGEMENT, SHE THANKED ME. WILL FOLLOW NEEDED
--- NOTE | 2019-02-16 13:33 | NUR ---
SPOKE WITH ENID AT [facility], SHE STATES MEDICARE WILL NOT COVER THE NEBULIZER OR OXYGEN COST FOR ACUTE COPD EXACERBATION. SHE STATES SHE WILL SEND NEBULIZER REQUEST TO [facility] TO SEE IF THEY WILL PAY. SHE STATES SHE WILL CONTACT PATIENTS DAUGHTER TO SEE IF THEY CAN MAKE A PARTIAL PAYMENT ON OXYGEN OR IF SHE NEEDS TO RUN [facility]. DISCUSSED THAT STAFF HAS ALREADY DISCHARGED PATIENT BEFORE I COULD SPEAK WITH HER AND I WILL CALL [facility] NURSE TO SEE IF SHE CAN EXPIDITE THE PROCESS. CALLED THANH MOHR [phone] AND LEFT MESSAGE FOR CALLBACK.
--- NOTE | 2019-02-16 15:30 | NUR ---
RECEIVED MESSAGE VIA CHW THAT ARMANDO [facility] RN FROM [facility] CALLED AND STATES Y DID NOT RECEIVE RX FOR PATIENTS MEDICATIONS. CHW SPOKE WITH STAFF NURSE ON MEDICAL FLOOR, THEY STATE PATIENT WAS SENT HOME WITH SCRIPTS WITH DISCHARGE PAPERS. ARMANDO STATED SHE WOULD CALL THEM AT HOME AND HAVE THEM BRING RX TO Y TO FILL. SHE ALSO WAS MADE AWARE THAT MEDICARE WAS NOT GOING TO COVER HER OXYGEN AND NEBULIZER AT [facility] AND THEY WERE GOING TO CONTACT [facility] TO SEE IF THEY WOULD PAY FOR THESE.
--- NOTE | 2019-02-17 09:58 | NUR ---
RECEIVED PHONE MESSAGE FROM [facility] RN NICOLAS SAYING SHE IS WORKING ON GETTING NEBULIZER FOR PATIENT AND GETTING A QUALIFIER FOR HER CHRONIC CONDITION FOR OXYGEN PAYMENT FOR MEDICARE. SHE WILL BE CHECKING IN WITH PATIENT TODAY TO BE SURE SHE HAS HER MEDICATIONS AND UNDERSTANDS INSTRUCTIONS. I RETURNED HER CALL AND LEFT A MESSAGE TO REMIND THEM THAT I AM ORDERING HOME HEALTH THROUGH [facility] FOR THERAPY TO START AT HOME NEXT WEEK.
--- NOTE | 2019-02-17 13:36 | NUR ---
HOME HEALTH ORDER AND CLINICALS SCANNED TO ANAND AT [facility]. SPOKE WITH HER BY PHONE, SHE RECEIVED AND WILL SCHEDULE THERAPY FOR NEXT WEEK.
== END 2019-02-16 12:47 | disposition home health service (06) | DRG 193 ==
LOC: ED 15:05 → MS 18:49
PROVIDERS: ADMIT Student in an Organized Health Care Education/Training Program
DX: J18.9 Pneumonia, unspecified organism (principal); J96.21 Acute and chronic respiratory failure with hypoxia; J44.1 Chronic obstructive pulmonary disease with (acute) exacerbation; J44.0 Chronic obstructive pulmonary disease with (acute) lower respiratory infection; I50.22 Chronic systolic (congestive) heart failure; I25.10 Atherosclerotic heart disease of native coronary artery without angina pectoris; F17.210 Nicotine dependence, cigarettes, uncomplicated; E11.9 Type 2 diabetes mellitus without complications; F32.9 Major depressive disorder, single episode, unspecified; I11.0 Hypertensive heart disease with heart failure; K59.00 Constipation, unspecified; E79.0 Hyperuricemia without signs of inflammatory arthritis and tophaceous disease; I25.2 Old myocardial infarction; Z66 Do not resuscitate; Z79.82 Long term (current) use of aspirin; Z79.899 Other long term (current) drug therapy; Z95.1 Presence of aortocoronary bypass graft; Z23 Encounter for immunization
CPT/HCPCS: 36415; 71045; 71046; 80048; 80053; 83036; 83605; 83735; 83880; 84484; 85025; 87040; 87070; 87205; 87502; 90662; 93005; 93010; 94640; 94667; 94668; 94760; 94761; 96365; 96375; 97116; 97162; 97165; 97530; 97535; 99285-25; 99406; G0008; J0456; J0696; J1650; J1815; J2930; J7060; J7512

== ENCOUNTER 2019-03-19 12:13 | Observation (INO) | payer MEDICARE, OTHER ==
[~2019-03-19] VITALS: Ht 160 cm; Wt 105.1 kg
--- OUTSIDE RECORDS SUMMARY | ~2019-03-19 | XMS | Clinical Summary ---
Demographics + + + | Address | [address] | | | [place] [address] | + + + | Home Phone | | + + + | Preferred Language | Unknown | + + + | Marital Status | | + + + | Samaritan Affiliation | 1041 | + + + | Race | Unknown | + + + | Ethnic Group | Unknown | + + + Author + + + | Author | [facility] | | | and [place] | + + + | Organization | [facility] | | [...] Team Providers + +------+ + | Care Warp Spooler Name | Role | Phone | + +------+ + | Roxana Barajas PA-C | PCP | Unavailable | + +------+ + Allergies No Known [...] | | + + + +---------+------+------+-------+ | calcium-vitamin D | Take by mouth 2 | | 0 | 09/1 | | Activ | | (CALCIUM + D) | times daily. | | | 3/20 | | e | | 250-125 MG-UNIT per | | | | 12 | | | | tablet | | | | | | | + + + +---------+------+------+-------+ | warfarin | 3 mg four days a | | 0 | 09/1 | | Activ | | (COUMADIN) 3 MG | week, 4.5 mg three | | | 320 | | e | | tablet | [...] mg by mouth | | 0 | 091 | | Activ | | 20 mg tablet | Daily. | | | 320 | | e | | | | | | 12 | | | + + + +---------+------+------+-------+ | furosemide (LASIX) | Take 20 mg by mouth | | 0 | 091 | | Activ | | 20 mg tablet | Daily. | | | 320 | | e | | | | | | 12 | | | + + + +---------+------+------+-------+ | loratadine | Take 10 mg by mouth | | 0 | 09/1 | | Activ | | (CLARITIN) 10 mg | Daily as needed. | | | 3/20 | | e | | tablet | | | | 12 | | | + + + +---------+------+------+-------+ | metoprolol | Take 25 mg by mouth | | 0 | 09/1 | | Activ | | succinate | Daily. | | | 3/20 | | e | | (TOPROL-XL) 25 mg 24 | | | | 12 | | | | hr tablet | | | | | | | + + + +---------+------+------+-------+ | acetaminophen | Take or use as | | 0 | 09/1 | | Activ | | (TYLENOL) 325 mg | needed. | | | 3/20 | [...] (IMDUR) | mouth daily. | | | 6/20 | | e | | 30 mg ER tablet | | | | 19 | | | + + + +---------+------+------+-------+ | nitroglycerin | Place 1 tablet under | | 0 | 03/0 | 03/0 | Activ | | (NITROSTAT) 0.4 mg | the tongue every 5 | | | /20 | 3/20 | e | | SL tablet | (five) minutes as | | | 19 | 20 | | | | needed for Chest | | | | | | | | pain. | | | | | | + + + +---------+------+------+-------+ | potassium chloride | Take 20 mEq by mouth | | 0 | | | Activ | | (KLOR-CON) 20 MEQ | daily. | | | | | e | | packet | | | | | | | + + + +---------+------+------+-------+ | acetaminophen | Take 325 mg by mouth | | 0 | | | Activ | | (TYLENOL) 325 mg | every 6 (six) hours | | | | | e | | tablet | as needed for Pain. | | | | | | + + + +---------+------+------+-------+ | lisinopril | Take 1 tablet by | | 0 | 03/18 | 03/18 | Activ | | (PRINIVIL, ZESTRIL) | mouth daily. | | | 02/03 | 02/03 | e | | 10 mg tablet | | | | 18 | 19 | | + + + +---------+------+------+-------+ | [...] + + +---------+------+------+-------+ | lisinopril | Take 5 mg by mouth | | 0 | 01/15 | 02/14 | Disco | | (PRINIVIL, ZESTRIL) | Daily. | | | 08/03 | 09/03 | ntinu | | 5 mg tablet | | | | 12 | 19 | ed | + + + +---------+------+------+-------+ Active Problems + + + | Problem | Noted Date | + + + | Coronary artery disease involving [place] coronary artery | 12/13/2018 | + + [...] + + + | Overview: intial AICD 2003, generator change 03/27/11, [place] | | Scientific Telogen E110, s# [id number]; RV Lead - Guidant 0184, s# | | [id number] (08/15/03); RA Lead - Guidant Fineline II EZ Sterox 4469, | | s# [id number] (08/15/03) | + + + + + [...] | +--------+ + + + + | 03/13/ | Procedure | Cardiology | | Cardiac | | 2019 | visit | | | defibrillator in | | | | | | situ (Primary Dx) | +--------+ + + + + | 02/27/ | Office | Pulmonology | Zheng Saravia | Chronic obstructive | | 2018 | Visit | | Eddie Bowden MD | pulmonary disease, | | | | | | unspecified COPD | | | | | | type (HCC) (Primary | | | | | | Dx); Personal | | | | | | history of tobacco | | | | | | use, presenting | | | | | | hazards to health | +--------+ + + + + | 12/30/ | Orders Only | Cardiology | Dawn Burrows | Essential (primary) | | 2019 | | | CIARRA Zepeda | hypertension; Mixed | | | | | | hyperlipidemia | +--------+ + + + + from Last 3 Months Immunizations + + + + | Name | Dates Previously Given | Next Due | + + + + | INFLUENZA, | 02/25/2009, 02/16/2008, 02/25/2004 | | | UNSPECIFIED | | | | FORMULATION | | | + + + + [...] | Coronary artery | Mother | | [place] | | disease | | | | [...] + +---------+ + | Alcohol Use | Drinks/We | oz/Week | Comments | | | ek | | | + + +---------+ + | Not [...] recent travel history available. | + + Last Filed Vital Signs + + + + | Vital Sign | Reading | Time Taken | + + + + | Blood Pressure | 92/50 | 02/27/20191234 PDT | + + + + | Pulse | 67 | 02/27/20191234 PDT | + + + + | Temperature | 37.3 C (99.2 F) | 02/27/20191234 PDT | + + + + | Respiratory Rate | 18 | 07/18/20187 PST | + + + + | Oxygen Saturation | 94% | 02/27/2019 1235 PDT | + + + + | Inhaled Oxygen | - | - | | Concentration | | | + + + + | Weight | 104.3 kg (230 lb) | 12/16/2018928 PDT | + + + + | Height | 157.5 cm (5' 2") | 12/16/2018928 PDT | + + + + | Body Mass Index | 42.07 | 12/16/2018928 PDT | + + + + Plan of Treatment +--------+---------+ + + + | Date | Type | Specialty | Care Team | Description | +--------+---------+ + + + | 06/29/ Office | Pulmonology | Zheng Saravia | | | 2020 | Visit | | Eddie Bowden MD [address] | | | | | | [address] | | | | | | [place] [address] | | | | | | [phone] | | | | | | | | +--------+---------+ + + + + + + + + | Health Maintenance | Due Date | Last Done | Comments | + + + + + | Adult Annual | | | | | Wellness Visit | 9 | | | + + + + + | Vaccine: Zoster (3 | | 02/22/2019, 01/20/2012 | | | of 3) | 9 | | | + + + + + | Vaccine: | | 01/20/2012, 10/12/2002, | | | Dtap/Tdap/Td (2 - | 2 | 03/06/1992, Additional history | | | Td) | | exists | | + + + + + | Vaccine: | Completed | 11/27/2015, 02/25/2007, | | | Pneumococcal 65+ | | 03/08/1998, Additional history | | | Low/Medium Risk | | exists | | + + + + + | Vaccine: Influenza | Completed | 02/16/2019, 02/02/2018, | | | | | 04/16/2017, Additional history | | | | | exists | | + + + + + Procedures + +--------+ + + + | Procedure Name | Priori | Date/Time | Associated Diagnosis | Comments | | | ty | | | | + +--------+ + + + | DEVICE | Routin | 03/13/2019 | Cardiac | Results for this | | INTERROGATION- | e | 0:00 PDT | defibrillator in | procedure are in the | | REMOTE | | | situ | results section. 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 Longest episode | | | lasted lasted 7 seconds. All 3 EGM's are 1:1 and appear to be sinus | | | tachycardia. VT/VF Detections: 8 ventricular events noted, and only 6 | | | with EGM's. All 6 appear to be sinus tachycardia as they are 1:1. Lead | | | function: Lead impedance and threshold value trends have been | | | reviewed and are acceptable based on most recent evaluation. Follow | | | up: The next scheduled interrogation will be in 3 months in the | | | cardiac device clinic. Additional comments: None. IMPRESSION:1. | | | Normal ICD function.2. Atrial arrhythmias noted above.3. Ventricular | | | events appear to be sinus tachycardias. Testing reviewed by: Girish | | | ONUR Neal | | |INTERROGATION RESULTS:Please see the full interrogation report | | |attached | | | | | |Known history of atrial flutter or atrial fibrillation: No | | |Current antithrombotic therapy including: aspirin | | | | | |Mode switches: | | |3 ATR events with EGM's noted. Longest episode lasted lasted 7 | | |seconds. All 3 EGM's are 1:1 and appear to be sinus tachycardia. | | | | | |VT/VF Detections: | | |8 ventricular events noted, and only 6 with EGM's. All 6 appear | | |to be sinus tachycardia as they are 1:1. | | | | | |Lead function: Lead impedance and threshold value trends have | | |been reviewed and are acceptable based on most recent evaluation. | | | | | |Follow up: The next scheduled interrogation will be in 3 months | | |in the cardiac device clinic. | | | | | |Additional comments: None. | | | | | |IMPRESSION: | | |1. Normal ICD function. | | |2. Atrial arrhythmias noted above. | | |3. Ventricular events appear to be sinus tachycardias. | | | | | |Testing reviewed by: Girish Neal RN | | + + + + + | Procedure Note | + + | Girish Neal RN - 03/13/2019 0800 PDT Formatting of this note might be different | | from the original.ICD REMOTE INTERROGATION REPORT Name: Yuliana Galindo PCP: Roxana Menjivar | | DHIRAJ Barajas : 1940MRN: [id number] Primary cardiology provider: Tres Hewitt | | Primary electrophysiology provider: Erin Caba Device product development: [employer] | | ScientificDevice type: Dual chamberBattery Longevity: 3 yearsRA Pacin% RV Pacing: | | 0%INTERROGATION RESULTS:Please see the full interrogation report attached Known history | | of atrial flutter or atrial fibrillation: NoCurrent antithrombotic therapy including: | | aspirinMode switches: 3 ATR events with EGM's noted. Longest episode lasted lasted 7 | | seconds. All 3 EGM's are 1:1 and appear to be sinus tachycardia.VT/VF Detections: 8 | | ventricular events noted, and only 6 with EGM's. All 6 appear to be sinus tachycardia as | | they are 1:1.Lead function: Lead impedance and threshold value trends have been | | reviewed and are acceptable based on most recent evaluation.Follow up: The next | | scheduled interrogation will be in 3 months in the cardiac device clinic. Additional | | comments: None.IMPRESSION:1. Normal ICD function.2. Atrial arrhythmias noted above.3. | | Ventricular events appear to be sinus tachycardias.Testing reviewed by: Girish Neal RN | | | | | |RA Pacin% | |RV Pacin% | | | |INTERROGATION RESULTS:Please see the full interrogation report attached | | | |Known history of atrial flutter or atrial fibrillation: No | |Current antithrombotic therapy including: aspirin | | | |Mode switches: | |3 ATR events with EGM's noted. Longest episode lasted lasted 7 seconds. All 3 EGM's are 1:1 and appear to be sinus tachycardia. | | | |VT/VF Detections: | |8 ventricular events noted, and only 6 with EGM's. All 6 appear to be sinus tachycardia as they are 1:1. | | | |Lead function: Lead impedance and threshold value trends have been reviewed and are accepta ble based on most recent evaluation. | | | |Follow up: The next scheduled interrogation will be in 3 months in the cardiac device clini c. | | | |Additional comments: None. | | | |IMPRESSION: | |1. Normal ICD function. | |2. Atrial arrhythmias noted above. | |3. Ventricular events appear to be sinus tachycardias. | | | |Testing reviewed by: Girish Neal RN | + + + +---------+ + + [...] +--------+ +---------+--------+ | MEDICARE | MEDICA | [id number] | 11/15/19 | [phone] | | Medica | | | RE | | 04-Pre | 5 | | re | | | PART A | | sent | | | | | | AND B | | | | | | + +--------+ +--------+ +---------+--------+ | MEDICARE | MEDICA | [id number] | 11/15/19 | [phone] | | Medica | | | RE | | 04-Pre | 5 | | re | | | PART A | | sent | | | | | | AND B | | | | | | + +--------+ +--------+ +---------+--------+ | [facility] | IHS | [id number] | 05/17/19 | | | Indemn | | SERVICE | YELLOW | | 04-Pre | | | ity | | | HAWK | | sent | | | | + +--------+ +--------+ +---------+--------+ | [facility] | IHS | [phone] | 05/18/19 | | | Indemn | | SERVICE | YELLOW | | 13-Pre | | | ity | | | HAWK | | sent | | | | + +--------+ +--------+ +---------+--------+ | [place]ICAID [place] | MEDICA | [id number] | | [phone] | | Medica | | | ID [...] Person | Self | [birth year] | [address] | | | al/Fam | | 1941 | [phone] | [place], [place] | | | [place] | | | [address] (Home) | [address] | + +--------+ +--------+ + + | Yuliana Galindo | Person | Self | [birth year] | [address] | | | al/Fam | | 1941 | [phone] | [place], [place] | | | [place] | | | [address] (Home) | [address] | + +--------+ +--------+ + + Advance Directives Patient has advance care planning documents on file. For more information, please contact:[facility] [place] [address]
--- OUTSIDE RECORDS SUMMARY | ~2019-03-19 | XMS | Encounter Summary ---
Demographics + + + | Address | [address] | | | [place] [address] | + + + | Home Phone | | + + + | Preferred Language | Unknown | + + + | Marital Status | | + + + | Yazdanism Affiliation | 1041 | + + + | Race | Unknown | + + + | Ethnic Group | Unknown | + + + Author + + + | Author | [facility] | | | and [place] | + + + | Organization | [facility] | | | and [...] Team Providers + +------+ + | Care Drywall Boardhanger Name | Role | Phone | + +------+ + | Roxana Barajas PA-C | PCP | Unavailable | + +------+ + Reason for Visit + + + | Reason | Comments | + + + | Device Check | | | (Remote) | | + + + Service/Procedure (Routine) +--------+--------+ + + + + | Status | Reason | Specialty | Diagnoses / | Referred By | Referred To | | | | | Procedures | Contact | Contact | +--------+--------+ + + + + | Closed | | Cardiology | Diagnoses | Boprashanthet, | [place] | | | | | BS ICD 3 | Roxana Menjivar, | Cardiology | | | | | month remote | PA-C [address] | [place] | | | | | Procedures | [address] | [address] | | | | | REMOTE | [place] | | | | | | DEVICE CHECK | [address] | [place], [place] | | | | | | [place], | [address] | | | | | | [place] | Phone: | | | | | | [address] | [phone] | | | | | | Phone: | Fax: | | | | | | [phone] | [phone] | | | | | | Fax: | | | | | | | [phone] | | +--------+--------+ + + + + Encounter Details +--------+ + + + + | Date | Type | Department | Care Team | Description | +--------+ + + + + | 03/13/ | Procedure | [facility] | | Cardiac | | 2019 | visit | CARDIOLOGY IMPERIAL | | defibrillator in | | | | [address] | | situ (Primary Dx) | | | | [place], [place] | | | | | | [address] | | | | | | [phone] | | | +--------+ + + + [...] as of this encounter Plan of Treatment +--------+---------+ + + + | Date | Type | Specialty | Care Team | Description | +--------+---------+ + + + | 06/29/ | Office | Pulmonology | Zheng Saravia | | | 2020 | Visit | | Eddie Bowden MD [address] | | | | | | [address] | | | | | | [place] [address] | | | | | | [phone] | | | | | | | | +--------+---------+ + + + documented as of this [...] + + documented in this encounter Results Device Interrogation - Remote (03/13/2019 0:00 PDT) + + + | Narrative | Performed At | + + + | [facility] | [facility] | | ONUR Neal 03/13/2019 13:16ICD REMOTE INTERROGATION REPORT | | | Name: Yuliana Galindo PCP: Roxana Barajas PA-C : 1940MRN: | | | [id number] Primary cardiology provider: Tres Hewitt Primary | | | electrophysiology provider: Erin Caba 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
--- OUTSIDE RECORDS SUMMARY | ~2019-03-19 | XMS | Encounter Summary ---
Demographics + + + | Address | [address] | | | [place] [address] | + + + | Home Phone | | + + + | Preferred Language | Unknown | + + + | Marital Status | | + + + | Denominational Affiliation | 1041 | + + + | Race | Unknown | + + + | Ethnic Group | Unknown | + + + Author + + + | Author | [facility] | | | and [place] | + + + | Organization | [facility] | | | [...] Team Providers + +------+ + | Care Associate Teacher Name | Role | Phone | [...] | | | | | | [address] | | | | | | | [address] | | | | | | | [place] | | | | | | | [address] | | | | | | | Phone: | | | | | | | [phone] | | | | | | | Fax: | | | | | | | [phone] | +--------+--------+ + + + + Encounter Details +--------+---------+ + + + | Date | Type | Department | Care Team | Description | +--------+---------+ + + + | 02/27/ | Office | [facility] | Zheng Saravia | Chronic obstructive | | 2019 | Visit | PULMONOLOGY [address] | Eddie Bowden MD [address] | pulmonary disease, | | | | [address] | unspecified COPD | | | | [place], [place] | [place] [address] | type (HCC) (Primary | | | | [address] | [phone] | Dx); Personal | | | | [phone] | | history of tobacco | | [...] + | Oxygen Saturation | 94% | 02/27/20191234 PDT | + + + + | Inhaled Oxygen | - | - | | Concentration | | | + + + + | Weight | - | - | + + + + | Height | - | - | + + + + | Body Mass Index | - | - | + + + + documented in this encounter Progress Notes Zheng Saravia MD - 02/27/2019 1230 PDTFormatting of this note might be differe nt from the original. [facility] PULMONOLOGY [address] [place] [address] HISTORY: Chief Complaint: I have been asked [...] for COPD. She was recently admitted at [facility] for an "acute bronchitis". She was treated [...] panic attacks Asthma CHF (congestive heart failure) ([facility]) chronic systolic heart failure, EF was 27% in the past, improved to 50-55% on echo 02/18/15 Community acquired pneumonia 2011 COPD (chronic obstructive pulmonary disease) ([facility]) h/o chronic bronchitis, long h/o tobacco abuse Coronary artery disease involving [place] coronary artery s/p CABG x3 (SVG to LAD, SVG to RCA, SVG to OM3) 1994, s/p KERA to SVG to OM3 01/01 Diabetes mellitus type 2 in obese ([facility]) diet controlled History of syncope 2003 secondary to VT 2003, one recurrent episode remotely since her AICD was implanted. Hyperlipidemia Hypertension Ischemic dilated cardiomyopathy ([facility]) EF was 27% on echo 08/01/03, improved to 50-55% on echo 02/18/15 Old PR (myocardial infarction) 1993 Osteoarthritis Pulmonary embolism ([facility]) Pulmonary hypertension ([facility]) RVSP 58-63 on echo 01/01 S/P CABG [...] PLACEMENT intial AICD 2003, generator change 03/27/11, [employer] Telogen E110, s# [id number]; R V Lead - Guidant 0184, s# [id number] (08/15/03); RA Lead - Guidant Fineline II EZ Sterox 4469, s # [id number] (08/15/03) COLONOSCOPY CORONARY ARTERY BYPASS GRAFT 1994 [...] EF 40-45%, mild MR, mild TR, tr AL, RVSP 58-63 Current Medications: Outpatient Medications acetaminophen [...] of Onset Coronary artery disease Mother 60 [place] Alzheimer's disease Brother Other (see comment) Brother [...] lungs. - she was recently admitted at [facility] with what sounds like a COPD exacerbation. [...] Saravia MD Pulmonary and Critical Care Medicine [facility] Pulmonology documented in this encounter Plan of Treatment +--------+---------+ + + + | Date | Type | Specialty | Care Team | Description | +--------+---------+ + + + | 06/29/ | Office | Pulmonology | Zheng Saravia | | | 2020 | Visit | | Eddie Bowden MD [address] | | | | | | [address] | | | | | | [place] [address] | | | | | | [phone] | | | | | | | [...]
--- OUTSIDE RECORDS SUMMARY | ~2019-03-19 | XMS | Encounter Summary ---
Demographics + + + | Address | [address] | | | [place] [address] | + + + | Home Phone | | + + + | Preferred Language | Unknown | + + + | Marital Status | | + + + | Adventist Affiliation | 1041 | + + + | Race | Unknown | + + + | Ethnic Group | Unknown | + + + Author + + + | Author | [facility] | | | and [place] | + + + | Organization | [facility] | | | [...] Team Providers + +------+ + | Care Petrol Tanker Driver Name | Role | Phone | + [...] | | | | | | | [address] | | | | | | | Phone: | | | | | | | [phone] | | | | | | | Fax: | | | | | | | [phone] | +--------+--------+ + + + + Encounter Details +--------+---------+ + + + | Date | Type | Department | Care Team | Description | +--------+---------+ + + + | 02/27/ | Office | [facility] | Zheng Saravia | Chronic obstructive | | 2019 | Visit | PULMONOLOGY [address] | Eddie Bowden MD [address] | pulmonary disease, | | | | [address] | [address] | unspecified COPD | | | | [place], [place] | [place] [address] | type (HCC) (Primary | | | | [address] | [phone] | Dx); Personal | | | | [phone] | | history of tobacco | | [...] might be differe nt from the original. [facility] PULMONOLOGY [address] [place] [address] HISTORY: Chief Complaint: I have been asked [...] for COPD. She was recently admitted at [facility] for an "acute bronchitis". She was treated [...] panic attacks Asthma CHF (congestive heart failure) ([facility]) chronic systolic heart failure, EF was 27% in the past, improved to 50-55% on echo 02/18/15 Community acquired pneumonia 2011 COPD (chronic obstructive pulmonary disease) ([facility]) h/o chronic bronchitis, long h/o tobacco abuse Coronary artery disease involving [place] coronary artery s/p CABG x3 (SVG to LAD, SVG to RCA, SVG to OM3) 1994, s/p KERA to SVG to OM3 01/01 Diabetes mellitus type 2 in obese ([facility]) diet controlled History of syncope 2003 secondary to VT 2003, one recurrent episode remotely since her AICD was implanted. Hyperlipidemia Hypertension Ischemic dilated cardiomyopathy ([facility]) EF was 27% on echo 08/01/03, improved to 50-55% on echo 02/18/15 Old PR (myocardial infarction) 1993 Osteoarthritis Pulmonary embolism ([facility]) Pulmonary hypertension ([facility]) RVSP 58-63 on echo 01/01 S/P CABG [...] RA lead (noted at time of gen uko ge 03/26) - RA lead appears pulled [...] PLACEMENT intial AICD 2003, generator change 03/27/11, [employer] Telogen E110, s# [id number]; R V Lead - Guidant 0184, s# [id number] (08/15/03); RA Lead - Guidant Fineline II EZ Sterox 4469, s # [id number] (08/15/03) COLONOSCOPY CORONARY ARTERY BYPASS GRAFT 1994 [...] EF 40-45%, mild MR, mild TR, tr [place], RVSP 58-63 Current Medications: Outpatient Medications acetaminophen [...] lungs. - she was recently admitted at [facility] [place] with what sounds like a COPD exacerbation. [...] Saravia MD Pulmonary and Critical Care Medicine [facility] Pulmonology documented in this encounter Plan of Treatment +--------+---------+ + + + | Date | Type | Specialty | Care Team | Description | +--------+---------+ + + + | 06/29/ | Office | Pulmonology | Zheng Saravia | | | 2020 | Visit | | Eddie Bowden MD [address] | | | | | | [address] | | | | | | [place] [address] | | | | | | [phone] | | | | | | | [...]
--- OUTSIDE RECORDS SUMMARY | ~2019-03-19 | XMS | Encounter Summary ---
Demographics + + + | Address | [address] | | | [place] [address] | + + + | Home Phone | | + + + | Preferred Language | Unknown | + + + | Marital Status | | + + + | Latter-Day Affiliation | 1041 | + + + | Race | Unknown | + + + | Ethnic Group | Unknown | + + + Author + + + | Author | [facility] | | | and [place] | + + + | Organization | [facility] | | | and [...] Team Providers + +------+ + | Care Certified Shorthand Reporter Name | Role | Phone | + +------+ + | Roxana Barajas PA-C | PCP | Unavailable | + +------+ + Encounter Details +--------+ + + + + | Date | Type | Department | Care Team | Description | +--------+ + + + + | 12/30/ | Orders Only | [facility] | Dawn Burrows | Essential (primary) | | 2019 | | CARDIOLOGY [place] | [address] | hypertension; Mixed | | | | [address] | [address] | hyperlipidemia | | | | [address] | [place] [address] | | | | | [place], [place] | [phone] | | | | | [address] | | | | | | [phone] | | | +--------+ + + + [...] [address] | | | | | | [place] [address] | | | | | | [phone] | | | | | | | | +--------+---------+ + + + + +--------+ + + [...]
--- OUTSIDE RECORDS SUMMARY | ~2019-03-19 | XMS | Encounter Summary ---
Demographics + + + | Address | [address] | | | [place] [address] | + + + | Home Phone | | + + + | Preferred Language | Unknown | + + + | Marital Status | | + + + | Gnosticism Affiliation | 1041 | + + + | Race | Unknown | + + + | Ethnic Group | Unknown | + + + Author + + + | Author | [facility] | | | and [place] | + + + | Organization | [facility] | | | [...] Team Providers + +------+ + | Care Wardrobe Stylist Name | Role | Phone | + [...] | month remote | PA-C 2230 | [place] | | | | | Procedures | NW | [address] | | | | | REMOTE | [place] | | | | | | DEVICE CHECK | [address] | [place], [place] | | | | | | [place], | [address] | | | | | | [place] | Phone: | | | | | | [address] | [phone] | | | | | | Phone: | Fax: | | | | | | [phone] | [phone] | | | | | | Fax: | | | | | | | [phone] | | +--------+--------+ + + + + Encounter Details +--------+ + + + + | Date | Type | Department | Care Team | Description | +--------+ + + + + | 03/13/ | Procedure | [facility] | | Cardiac | | 2019 | visit | CARDIOLOGY [place] | | defibrillator in | | | | [address] | | situ (Primary Dx) | | | | [place], [place] | | | | | | [address] | | | | | | [phone] | | | +--------+ + + + [...] 06/29/ | Office | Pulmonology | Zheng Saraiva | | | 2020 | Visit | | Eddie Bowden MD [address] | | | | | | [address] | | | | | | [place] [address] | | | | | | [phone] | | | | | | | [...] | | INTERROGATION- | e | 8:00 PDT | defibrillator in | procedure are in the | | REMOTE | | | situ | results section. | + +--------+ + + + documented in this encounter Results Device Interrogation - Remote (03/13/2019 8:00 PDT) + + + | Narrative | Performed At | + + + | Girish Sarmiento | [facility] | | ONUR Neal 03/13/2019 13:16ICD REMOTE INTERROGATION REPORT | | | Name: Yuliana Galindo PCP: Roxana Barajas PA-C : 1940MRN: | | | [id number] Primary cardiology provider: Tres Hewitt Primary | | | electrophysiology provider: Erin Caba Device guide cruise: | | | M-KOPA Device type: Dual chamber Battery Longevity: 3 [...] + + | Performing | Address | City/State/[facility] | Phone Number | | Organization | [...]
--- OUTSIDE RECORDS SUMMARY | ~2019-03-19 | XMS | Clinical Summary ---
Demographics + + + | Address | [address] | | | [place] [address] | + + + | Home Phone | | + + + | Preferred Language | Unknown | + + + | Marital Status | | + + + | Yazdanism Affiliation | 1041 | + + + | Race | Unknown | + + + | Ethnic Group | Unknown | + + + Author + + + | Author | [facility] (Historical as of | | | 12-31-18) | + + + | Organization | [facility] (Historical as of | | | 12-31-18) [...] Team Providers + +------+ + | Care Character Actor Name | Role | Phone | + +------+ + | Roxana Barajas PA-C | PP | | + +------+ + Allergies No Known Allergies Current Medications + + +---------+---------+------+------+-------+ | Prescription | Sig. | Disp. | Refills | Star | End | Statu | | | | | | t | Date | s | | | | | | Date | | | + + +---------+---------+------+------+-------+ | acetaminophen | Take 325 mg by mouth | | | | | Activ | | (TYLENOL) 325 MG | every 6 (six) hours | | | | | e | | tablet | as needed for Pain. | | | | | | + + +---------+---------+------+------+-------+ | allopurinol | Take 100 mg by mouth | | | | | Activ | | (ZYLOPRIM) 100 MG | daily. | | | | | e | | tablet | | | | | | | + + +---------+---------+------+------+-------+ | aspirin 81 MG | Take 81 mg by mouth | | | | | Activ | | tablet | daily. | | | | | e | + + +---------+---------+------+------+-------+ | cholecalciferol | Take 1,000 Units by | | | | | Activ | | (VITAMIN D-3) 1000 | mouth daily. | | | | | e | | UNITS tablet | | | | | | | + + +---------+---------+------+------+-------+ | escitalopram | Take 20 mg by mouth | | | | | Activ | | (LEXAPRO) 20 MG | daily. | | | | | e | | tablet | | | | | | | + + +---------+---------+------+------+-------+ | furosemide (LASIX) | Take 20 mg by mouth | | | | | Activ | | 20 MG tablet | daily. | | | | | e | + + +---------+---------+------+------+-------+ | metoprolol | Take 25 mg by mouth | | | | | Activ | | (TOPROL-XL) 25 MG 24 | daily. | | | | | e | | hr tablet | | | | | | | + + +---------+---------+------+------+-------+ | potassium chloride | Take 20 mEq by mouth | | | | | Activ | | (KLOR-CON) 20 MEQ | daily. | | | | | e | | packet | | | | | | | + + +---------+---------+------+------+-------+ | Calcium | Take 1 tablet by | | | | | Activ | | Carb-Cholecalciferol | mouth 2 (two) times | | | | | e | | (CALCIUM/VITAMIN D) | daily. | | | | | | | 600-400 MG-UNIT | | | | | | | | TABS | | | | | | | + + +---------+---------+------+------+-------+ | clopidogrel | Take 1 tablet by | 30 | 11 | 08/3 | | Activ | | (PLAVIX) 75 MG | mouth daily. | tablet | | 06/05 | | e | | tablet | | | | 18 | | | + + +---------+---------+------+------+-------+ | atorvastatin | Take 1 tablet by | 30 | 11 | 08/3 | | Activ | | (LIPITOR) 40 MG | mouth nightly. | tablet | | 06/05 | | e | | tablet | | | | 18 | | | + + +---------+---------+------+------+-------+ | lisinopril | Take 1 tablet by | 90 | 3 | /2 | 03/18 | Activ | | (ZESTRIL) 10 MG | mouth daily. | tablet | | 02/03 | 02/03 | e | | tablet | | | | 18 | 19 | | + + +---------+---------+------+------+-------+ | isosorbide | Take 1 tablet by | | | 06/18 | | Activ | | mononitrate (IMDUR) | mouth daily. | | | 11/03 | | e | | 30 MG 24 hr tablet | | | | 19 | | | + + +---------+---------+------+------+-------+ | cyanocobalamin | Take 1,000 mcg by | | | | | Activ | | (VITAMIN B-12) 1000 | mouth daily. | | | | | e | | MCG tablet | | | | | | | + + +---------+---------+------+------+-------+ | nitroGLYCERIN | Place 1 tablet under | 25 | 3 | 03/0 | 03/0 | Activ | | (NITROSTAT) 0.4 MG | the tongue every 5 | tablet | | 4/20 | 3/20 | e | | SL tablet | (five) minutes as | | | 19 | 20 | | | | needed for Chest | | | | | | | | pain. | | | | | | + + +---------+---------+------+------+-------+ | ipratropium | Take or use as | | | 09/1 | | Activ | | (ATROVENT HFA) 17 | needed. | | | 3/20 | | e | | MCG/ACT inhaler | | | | 12 | | | + + +---------+---------+------+------+-------+ | | Inhale 2 puffs into | 1 | 6 | 08/0 | | Activ | | mometasone-formotero | the lungs 2 (two) | Inhaler | | 2/20 | | e | | l (DULERA) 200-5 | times daily. | | | 19 | | | | MCG/ACT | | | | | | | | inhalerIndications: | | | | | | | | Chronic obstructive | | | | | | | | pulmonary disease, | | | | | | | | unspecified COPD | | | | | | | | type ([facility]) | | | | | | | + + +---------+---------+------+------+-------+ | albuterol | Inhale 2 puffs into | 1 | 6 | 08/0 | 08/0 | Activ | | (VENTOLIN HFA) 108 | the lungs every 6 | Inhaler | | 2/20 | 1/20 | e | | (90 Base) MCG/ACT | (six) hours as | | | 19 | 20 | | | inhalerIndications: | needed for Wheezing | | | | | | | Chronic obstructive | or Shortness of | | | | | | | pulmonary disease, | Breath. | | | | | | | unspecified COPD | | | | | | | | type ([facility]) | | | | | | | + + +---------+---------+------+------+-------+ Active Problems + + + | Problem | Noted Date | + + + | Chronic obstructive pulmonary disease (HCC) | 07/18/2018 | + + + | History of non-ST elevation myocardial infarction (NSTEMI) | 12/26/2017 | + + + | Morbid obesity (HCC) | 12/26/2017 | + + + | Tobacco use disorder | 12/26/2017 | + + + | Cardiac defibrillator in situ | 08/15/2003 | + + + + + | Overview: intial AICD 2004, generator change 03/27/11, [place] | | Scientific Telogen E110, s# [id number]; RV Lead - Guidant 0184, s# | | [id number] (08/15/03); RA Lead - Guidant Fineline II EZ Sterox 4469, | | s# [id number] (08/15/03) | + + + + + | Ventricular tachycardia, paroxysmal (HCC) | 05/17/2003 | + + + + + | Overview: with Syncope, + EPS for inducible VT - 08/14/03 | + + + + + | 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 | + + + | Coronary artery disease involving [place] coronary artery | | + + + + + | Overview: multi-vessel | + + + +---+ | Ischemic dilated cardiomyopathy (HCC) | | + +---+ + + | Overview: EF was 27% on echo 08/01/03, improved to 50-55% on | | echo 02/18/15 | + + + +---+ | Hypertension | | + +---+ | Hyperlipidemia | | + +---+ Resolved Problems + + + + | Problem | Noted | Resolved | | | Date | Date | + + + + | Acute metabolic encephalopathy | 12/28/19 | | | | 18 | 9 | + + + + | Acute respiratory failure with hypoxia and hypercapnia (HCC) | 12/28/19 | | | | 18 | 9 | + + + + | Pulmonary edema cardiac cause (HCC) | 12/28/19 | | | | 18 | 9 | + + + + | Cardiac defibrillator in place | 09/24/19 | | | | 16 | 9 | + + + + + + | Overview: [employer] | | Telogen model E110, serial number [id number] | + + Family History + + +------+ + | Medical History | Relation | Name | Comments | + + +------+ + | Alzheimer's disease | Brother | | | + + +------+ + | Diabetes Mellitus II | Brother | | | + + +------+ + | Thyroid disease | Daughter | | | + + +------+ + | Coronary Artery | Mother | | [place] | | Disease | | | | + + +------+ [...] + +--------+ + + Social History + + + [...] | | + +---+---+---+ + + | Tobacco Cessation: Ready to Quit: No; Counseling Given: Yes | | Comments: cut down to 0.5 ppd [...] | Respiratory Rate | 18 | 07/18/2018 10:36 AM PST | + + + + | [...] AM PDT | + + + + Plan [...] | + + + + + | DEXA SCAN SCREENING | | | | | | 4 | | | + + + + [...] + + + + + Implants + +-------+--------+ +--------+--------+--------+ | Implanted | Type | Area | Manufacture | Device | Expira | Model | | | | | r | | tion | / | | | | | | Identi | Date | Serial | | | | | | fier | | / Lot | + +-------+--------+ +--------+--------+--------+ | Synergy 3.5 X | Stent | Corey | [place] | | 08/30/ | [id number] | | -12/27/2017Implanted: | | ry | SCIENTIFIC | | 2019 | [id number] | | 12/27/2017 by Aquiles Morris, | | | LARRY - BSCI | | | 50 / | | MD (Quantity not on file) | | | | | | /[id number] | | | | | | | | 257 | + +-------+--------+ +--------+--------+--------+ | Synergy 3.5 X | Stent | Corey | [place] | | 08/30/ | [id number] | | 12/27/2017Implanted: | | ry | SCIENTIFIC | | 2018 | [id number] | | 12/27/2017 by Aquiles Morris, | | | LARRY - BSCI | | | 50 / | | MD (Quantity not on file) | | | | | | /[id number] | | | | | | | | 257 | + +-------+--------+ +--------+--------+--------+ Results Not on filefrom Last 3 Months Insurance + +--------+ +------+-------+ + | Payer | Benefi | Subscriber | Type | Phone | Address | | | t Plan | ID | | | | | | / | | | | | | | Group | | | | | + +--------+ +------+-------+ + | MEDICARE | MEDICA | [id number] | | | [address] | | | RE | | | | [place] [address] | | | IP-OP | | | | | + +--------+ +------+-------+ + | MEDICAID | MEDICA | [id number] | | | [address] | | | ID | | | | [place], [place] | | | [place] | | | | [address] | + +--------+ +------+-------+ + | /[facility] | YELLOW | [id number] | | | | | PLANS | [place] | | | | | + +--------+ +------+-------+ + + +--------+ +--------+ + + | Guarantor Name | Accoun | Relation to | Date | Phone | Billing Address | | | t Type | Patient | of | | | | | | | | | | + +--------+ +--------+ + + | YULIANA GALINDO | Person | Self | [birth year] | Home: | [address] | | | [place] | | 1941 | [phone] | [place] | | | [place] | | | [phone] | [address] | + +--------+ +--------+ + +
--- OUTSIDE RECORDS SUMMARY | ~2019-03-19 | XMS | Encounter Summary ---
Demographics + + + | Address | [address] | | | [place] [address] | + + + | Home Phone | | + + + | Preferred Language | Unknown | + + + | Marital Status | | + + + | Episcopalian Affiliation | 1041 | + + + [...] Team Providers + +------+ + | Care Bitumastic Applier Name | Role | Phone | + [...] | month remote | PA-C 2230 | [place] | | | | | Procedures | NW | [address] | | | | | REMOTE | [place] | | | | | | DEVICE CHECK | [address] | [place], [place] | | | | | | [place], | [address] | | | | | | [place] | Phone: | | | | | | [address] | [phone] | | | | | | Phone: | Fax: | | | | | | [phone] | [phone] | | | | | | Fax: | | | | | | | [phone] | | +--------+--------+ + + + + Encounter Details +--------+ + + + + | Date | Type | Department | Care Team | Description | +--------+ + + + + | 03/13/ | Procedure | [facility] | | Cardiac | | 2019 | visit | CARDIOLOGY [place] | | defibrillator in | | | | [address] | | situ (Primary Dx) | | | | [place], [place] | | | | | | [address] | | | | | | [phone] | | | +--------+ + + + [...] E | | | | | | [place] [address] | | | | | | [phone] | | | | | | | [...] Barajas PA-C : 1940MRN: | | | [id number] Primary cardiology provider: Tres Hewitt Primary | | | electrophysiology provider: Erin Caba 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
--- OUTSIDE RECORDS SUMMARY | ~2019-03-19 | XMS | Encounter Summary ---
Demographics + + + | Address | [address] | | | [place] [address] | + + + | Home Phone | | + + + | Preferred Language | Unknown | + + + | Marital Status | | + + + | Lutheran Affiliation | 1041 | + + + | Race | Unknown | + + + | Ethnic Group | Unknown | + + + Author + + + | Author | [facility] | | | and [place] | + + + | Organization | [facility] | | | [...] Team Providers + +------+ + | Care Transport Engineer Name | Role | Phone | [...] | | | [address] | [place] [address] | | | | | [place], [place] | [phone] | | | | | [address] | | | | | | [phone] | | | +--------+ + + + [...] [address] | | | | | | [place] [address] | | | | | | [phone] | | | | | | | [...]
--- OUTSIDE RECORDS SUMMARY | ~2019-03-19 | XMS | Clinical Summary ---
Demographics + + + | Address | [address] | | | [place] [address] | + + + | Home Phone | | + + + | Preferred Language | Unknown | + + + | Marital Status | | + + + | Baptism Affiliation | 1041 | + + + [...] Team Providers + +------+ + | Care Acid Conditioning Worker Name | Role | Phone | + [...] + + | Coronary artery disease involving [place] coronary artery | 12/13/2018 | + + [...] Overview: intial AICD 2003, generator change 03/27/11, [place] | | Scientific Telogen E110, s# [id number]; RV Lead - Guidant 0184, s# | | [id number] (08/15/03); RA Lead - Guidant Fineline II EZ Sterox 4469, | | s# [id number] (08/15/03) | + + + + + [...] | Coronary artery | Mother | | [place] | | disease | | | | [...] [address] | | | | | | [place] [address] | | | | | | [phone] | | | | | | | [...] Barajas PA-C : 1940MRN: | | | [id number] Primary cardiology provider: Tres Hewitt Primary | | | electrophysiology provider: Erin Caba 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 | Phone Number | | Organization [...] +--------+ +---------+--------+ | MEDICARE | MEDICA | [id number] | 11/15/19 | [phone] | | Medica | | | RE | | 04-Pre | 5 | | re | | | PART A | | sent | | | | | | AND B | | | | | | + +--------+ +--------+ +---------+--------+ | MEDICARE | MEDICA | [id number] | 11/15/19 | [phone] | | Medica | | | RE | | 04-Pre | 5 | | re | | | PART A | | sent | | | | | | AND B | | | | | | + +--------+ +--------+ +---------+--------+ | [facility] | IHS | [id number] | 05/17/19 | | | Indemn | | SERVICE | YELLOW | | 04-Pre | | | ity | | | [place] | | sent | | | | + +--------+ +--------+ +---------+--------+ | [facility] | IHS | [phone] | 05/18/19 | | | Indemn | | SERVICE | YELLOW | | 13-Pre | | | ity | | | [place] | | sent | | | | + +--------+ +--------+ +---------+--------+ | MEDICAID [place] | MEDICA | [id number] | | [phone] | | Medica | | | ID [...] Person | Self | [birth year] | | [address] | | | al/Fam | | 1941 | [phone] | [place] | | | [place] | | | [address] (Home) | [address] | + +--------+ +--------+ + + | Yuliana Galindo | Person | Self | [birth year] | | [address] | | | al/Fam | | 1941 | [phone] | [place] | | | [place] | | | [address] (Home) | [address] | + +--------+ +--------+ + + Advance Directives Patient has advance care planning documents on file. For more information, please contact:[facility] [place] [address]
--- OUTSIDE RECORDS SUMMARY | ~2019-03-19 | XMS | Clinical Summary ---
Demographics + + + | Address | [address] | | | [place] [address] | + + + | Home Phone | | + + + | Preferred Language | Unknown | + + + | Marital Status | | + + + | Orthodox Affiliation | 1041 | + + + | Race | Unknown | + + + | Ethnic Group | Unknown | + + + Author + + + | Author | [facility] (Historical as of | | | 12-31-18) | + + + | Organization | [facility] (Historical as of | | | 12-31-18) [...] Team Providers + +------+ + | Care Cinder Block Mason Name | Role | Phone | + [...] | | | | | | type ([facility]) | | | | [...] | | | | | | type ([facility]) | | | | [...] Overview: intial AICD 2004, generator change 03/27/11, [place] | | Scientific Telogen E110, s# [id number]; RV Lead - Guidant 0184, s# | | [id number] (08/15/03); RA Lead - Guidant Fineline II EZ Sterox 4469, | | s# [id number] (08/15/03) | + + + + + | Ventricular tachycardia, paroxysmal (HCC) | 05/17/2003 | + + + + + | Overview: with Syncope, + EPS for inducible VT - 08/14/03 | + + + + + | 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 | + + + | Coronary artery disease involving [place] coronary artery | | + + + [...] + + + + + | Overview: [employer] | | Telogen model E110, serial number [id number] | + + Family History + + [...] | Coronary Artery | Mother | | [place] | | Disease | | | | [...] Corey | [employer] | | 08/30/ | [id number] | | -12/27/2017Implanted: | | ry | SCIENTIFIC | | 2019 | [id number] | | 12/27/2017 by Aquiles Morris, | | | LARRY - BSCI | | | 50 / | | MD (Quantity not on file) | | | | | | /[id number] | | | | | | | | 257 | + +-------+--------+ +--------+--------+--------+ | Synergy 3.5 X | Stent | Corey | [place] | | 08/30/ | [id number] | | 12/27/2017Implanted: | | ry | SCIENTIFIC | | 2018 | [id number] | | 12/27/2017 by Aquiles Morris, | | | LARRY - BSCI | | | 50 / | | MD (Quantity not on file) | | | | | | /[id number] | | | | | | | [...] +------+-------+ + | MEDICARE | MEDICA | [id number] | | | [address] | | | RE | | | | [place] [address] | | | IP-OP | | | | | + +--------+ +------+-------+ + | MEDICAID | MEDICA | [id number] | | | [address] | | | ID | | | | [place], [place] | | | [place] | | | | [address] | + +--------+ +------+-------+ + | /[facility] | YELLOW | [id number] | | | | | PLANS | [...] | Self | [birth year] | Home: | [address] | | | [place] | | 1941 | [phone] | [place] | | | [place] | | | [phone] | [address] | + +--------+ +--------+ + +
--- OUTSIDE RECORDS SUMMARY | ~2019-03-19 | XMS | Encounter Summary ---
Demographics + + + | Address | [address] | | | [place] [address] | + + + | Home Phone [...] Team Providers + +------+ + | Care Barbecue Cook Name | Role | Phone | + [...] | | | | | | | [address] | | | | | | | Phone: | | | | | | | [phone] | | | | | | | Fax: | | | | | | | [phone] | +--------+--------+ + + + + Encounter Details +--------+---------+ + + + | Date | Type | Department | Care Team | Description | +--------+---------+ + + + | 02/27/ | Office | [facility] | Zheng Saravia | Chronic obstructive | | 2019 | Visit | PULMONOLOGY [address] | Eddie Bowden MD [address] | pulmonary disease, | | | | [address] | [place] | unspecified COPD | | | | [place], [place] | [place] [address] | type (HCC) (Primary | | | | [address] | [phone] | Dx); Personal | | | | [phone] | | history of tobacco | | [...] might be differe nt from the original. [facility] PULMONOLOGY [address] [place] [address] HISTORY: Chief Complaint: I have been asked [...] for COPD. She was recently admitted at [facility] for an "acute bronchitis". She was treated [...] panic attacks Asthma CHF (congestive heart failure) ([facility]) chronic systolic heart failure, EF was 27% in the past, improved to 50-55% on echo 02/18/15 Community acquired pneumonia 2011 COPD (chronic obstructive pulmonary disease) ([facility]) h/o chronic bronchitis, long h/o tobacco abuse Coronary artery disease involving cachil dehe coronary artery s/p CABG x3 (SVG to LAD, SVG to RCA, SVG to OM3) 1994, s/p KERA to SVG to OM3 01/01 Diabetes mellitus type 2 in obese ([facility]) diet controlled History of syncope 2003 secondary to VT 2003, one recurrent episode remotely since her AICD was implanted. Hyperlipidemia Hypertension Ischemic dilated cardiomyopathy ([facility]) EF was 27% on echo 08/01/03, improved to 50-55% on echo 02/18/15 Old [place] (myocardial infarction) 1993 Osteoarthritis Pulmonary embolism ([facility]) Pulmonary hypertension ([facility]) RVSP 58-63 on echo 01/01 [...] PLACEMENT intial AICD 2003, generator change 03/27/11, [place] [employer] Telogen E110, s# [id number]; R V Lead - Guidant 0184, s# [id number] (08/15/03); RA Lead - Guidant Fineline II EZ Sterox 4469, s # [id number] (08/15/03) COLONOSCOPY CORONARY ARTERY BYPASS GRAFT 1994 [...] EF 40-45%, mild MR, mild TR, tr UT, RVSP 58-63 Current Medications: Outpatient Medications acetaminophen [...] of Onset Coronary artery disease Mother 60 [place] Alzheimer's disease Brother Other (see comment) Brother [...] lungs. - she was recently admitted at [facility] with what sounds like a COPD exacerbation. [...] Saravia MD Pulmonary and Critical Care Medicine [facility] Pulmonology documented in this encounter Plan of Treatment +--------+---------+ + + + | Date | Type | Specialty | Care Team | Description | +--------+---------+ + + + | 06/29/ | Office | Pulmonology | Zheng Saravia | | | 2020 | Visit | | Eddie Bowden MD [address] | | | | | | [address] | | | | | | [place] [address] | | | | | | [phone] | | | | | | | [...]
--- OUTSIDE RECORDS SUMMARY | ~2019-03-19 | XMS | Clinical Summary ---
Demographics + + + | Address | [address] | | | [place] [address] | + + + | Home Phone | | + + + | Preferred Language | Unknown | + + + | Marital Status | | + + + | Gnosticist Affiliation | 1041 | + + + | Race | Unknown | + + + | Ethnic Group | Unknown | + + + Author + + + | Author | [facility] | | | and [place] | + + + | Organization | [facility] | | | [...] Team Providers + +------+ + | Care Electrical Line Worker Name | Role | Phone | [...] + + | Coronary artery disease involving coy[place] coronary artery | 12/13/2018 | + + [...] Overview: intial AICD 2003, generator change 03/27/11, [place] | | Scientific Telogen E110, s# [id number]; RV Lead - Guidant 0184, s# | | [id number] (08/15/03); RA Lead - Guidant Fineline II EZ Sterox 4469, | | s# [id number] (08/15/03) | + + + + + [...] | 2018 | Visit | | Eddie oBwden MD | pulmonary disease, | | | [...] | Coronary artery | Mother | | PA | | disease | | | | [...] [place] | | | | | | [place] [address] | | | | | | [phone] | | | | | | | [...] Barajas PA-C : 1940MRN: | | | [id number] Primary cardiology provider: Tres Hewitt Primary | | | electrophysiology provider: Erin Caba Device jitterbug operator: | | | Mob[employer]o Device type: Dual chamber Battery Longevity: 3 [...] Menjivar | | DHIRAJ Barajas : 1940MRN: [id number] Primary cardiology provider: Tres Hewitt | | Primary electrophysiology provider: Erin Caba Device jitterbug operator: [employer] | | ScientificDevice type: Dual chamberBattery Longevity: [...] +--------+ +---------+--------+ | MEDICARE | MEDICA | [id number] | 11/15/19 | [phone] | | Medica | | | RE | | 04-Pre | 5 | | re | | | PART A | | sent | | | | | | AND B | | | | | | + +--------+ +--------+ +---------+--------+ | MEDICARE | MEDICA | [id number] | 11/15/19 | [phone] | | Medica | | | RE | | 04-Pre | 5 | | re | | | PART A | | sent | | | | | | AND B | | | | | | + +--------+ +--------+ +---------+--------+ | [facility] | IHS | [id number] | 05/17/19 | | | Indemn | | SERVICE | YELLOW | | 04-Pre | | | ity | | | HAWK | | sent | | | | + +--------+ +--------+ +---------+--------+ | [facility] | IHS | [phone] | 05/18/19 | | | Indemn | | SERVICE | YELLOW | | 13-Pre | | | ity | | | HAWK | | sent | | | | + +--------+ +--------+ +---------+--------+ | MEDICAID [place] | MEDICA | [id number] | | [phone] | | Medica | [...] Person | Self | [birth year] | | [address] | | | al/Fam | | 1941 | [phone] | [place], [place] | | | [place] | | | 7 (Home) | [address] | + +--------+ +--------+ + + | Yuliana Galindo | Person | Self | [birth year] | | [address] | | | al/Fam | | 1941 | [phone] | [place], [place] | | | [place] | | | 7 (Home) | [address] | + +--------+ +--------+ + + Advance Directives Patient has advance care planning documents on file. For more information, please contact:[facility] [place] [address]
--- OUTSIDE RECORDS SUMMARY | ~2019-03-19 | XMS | Clinical Summary ---
Demographics + + + | Address | [address] | | | [place] [address] | + + + | Home Phone | | + + + | Preferred Language | Unknown | + + + | Marital Status | | + + + | Scientology Affiliation | 1041 | + + + | Race | Unknown | + + + | Ethnic Group | Unknown | + + + Author + + + | Author | [employer] [facility] (Historical as of | | | 12-31-18) | + + + | Organization | [facility] (Historical as of | | | 12-31-18) [...] Team Providers + +------+ + | Care Financial Market Dealer Name | Role | Phone | + [...] | | | | | | type ([facility]) | | | | | | [...] | | | | | | type ([facility]) | | | | | | [...] [place] | | Scientific Telogen E110, s# [id number]; RV Lead - Guidant 0184, s# | | [id number] (08/15/03); RA Lead - Guidant Fineline II EZ Sterox 4469, | | s# [id number] (08/15/03) | + + + + + | Ventricular tachycardia, paroxysmal (HCC) | 05/17/2003 | + + + + + | Overview: with Syncope, + EPS for inducible VT - 08/14/03 | + + + + + | 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 | + + + | Coronary artery disease involving confederated salish coronary artery | | + + + [...] + + + + + | Overview: [employer] | | Telogen model E110, serial number [id number] | + + Family History + + [...] | Coronary Artery | Mother | | [place] | | Disease | | | | [...] Corey | [place] | | 08/30/ | [id number] | | -12/27/2017Implanted: | | ry | SCIENTIFIC | | 2019 | [id number] | | 12/27/2017 by Aquiles Morris, | | | LARRY - BSCI | | | 50 / | | MD (Quantity not on file) | | | | | | /[id number] | | | | | | | | 257 | + +-------+--------+ +--------+--------+--------+ | Synergy 3.5 X | Stent | Corey | [place] | | 08/30/ | [id number] | | 12/27/2017Implanted: | | ry | SCIENTIFIC | | 2018 | [id number] | | 12/27/2017 by Aquiles Morris, | | | LARRY - BSCI | | | 50 / | | MD (Quantity not on file) | | | | | | /[id number] | | | | | | | [...] +------+-------+ + | MEDICARE | MEDICA | [id number] | | | [address] | | | RE | | | | [place] [address] | | | IP-OP | | | | | + +--------+ +------+-------+ + | MEDICAID | MEDICA | [id number] | | | [address] | | | [place] | | | | [place], [place] | | | [place] | | | | [phone] | + +--------+ +------+-------+ + | /[facility] | YELLOW | [id number] | | | | | PLANS | [place] | | | | | + +--------+ +------+-------+ + + +--------+ +--------+ + + | Guarantor Name | Accoun | Relation to | Date | Phone | Billing Address | | | t Type | Patient | of | | | | | | | | | | + +--------+ +--------+ + + | YULIANA GAILNDO | Person | Self | [birth year] | Home: | [address] | | | [place] | | 1941 | [phone] [place] | | | [place] | | | [phone] | [address] | + +--------+ +--------+ + +
--- OUTSIDE RECORDS SUMMARY | ~2019-03-19 | XMS | Encounter Summary ---
Demographics + + + | Address | [address] | | | [place] [address] | + + + | Home Phone [...] Team Providers + +------+ + | Care Superintendent Construction Name | Role | Phone | + +------+ + | Roxana Barajas PA-C | PCP | Unavailable | + +------+ + Encounter Details +--------+ + + + + | Date | Type | Department | Care Team | Description | +--------+ + + + + | 12/30/ | Orders Only | [facility] | Dawn Burrows | Essential (primary) | | 2019 | | CARDIOLOGY [place] | [address] | hypertension; Mixed | | | | [address] | [address] | hyperlipidemia | | | | [address] | [place] [address] | | | | | [place], [place] | [phone] | | | | | [address] | | | | | | [phone] | | | +--------+ + + + [...] [place] | | | | | | [place] [address] | | | | | | [phone] | | | | | | | [...]
[~2019-03-19 12:13] MED LIST changes: +ASPIRIN EC81 MG PO; +CEFUROXIME500 MG PO; +FUROSEMIDE20 MG PO; +IPRAT-ALBUT 0.5-3 ML INH; +LIPITOR40 MG PO; +LISINOPRIL10 MG PO; +MAG-OXIDE400 MG PO; +METFORMIN HCL500 MG PO; +METOPROLOL SUCC25 MG PO; +PERFOROMIS20 MCG/2 M INH; +PULMICORT0.5 MG/2 M INH; +TUSSIN DM SYRU118 ML PO; +VENTOLIN HFA18 GM INH
--- OUTSIDE RECORDS SUMMARY | 2019-03-19 12:16 | XMS ---
PreManage Notification: JUNIOR HUMPHREYS Security Hot Braider Events No recent Security Events currently on file [place] [facility] [place] Melly Harris Senior Erp Consultant/Field Liability Generalist 03/17/2017-Current PHONE: [phone] Melly Harris Primary Care 03/17/2017-Current PHONE: [phone] Roxana Barajas Primary Care Evelio HEARN PHONE: [phone] Mumtaz Caldwell Primary Care Evelio CALIX PHONE: Unknown or_thad Case or Apprentice Cosmetologist Current PHONE: Unknown [facility] Current Orthopedic Surgery \T\ [facility] PHONE: Unknown Guidelines Source: [facility] Guidelines Date: 01/13/2018 Care Coordination: PATIENT IS UNDER SERVICES AT [facility] DEPARTMENT.\T\nbsp; IF PATIENT IS SEEN IN THE ED, PLEASE NOTIFY THEM AT [phone].\T\nbsp; IF AFTER HOURS OR ON WEEKENDS PLEASE CALL SWITCHBOARD AT [phone] AND HAVE ON-CALL RN NOTIFIED. Care History Medical/Surgical 02/13/2019 [facility] PATIENT- YELLOWHAW ELIGIBLE PLEASE REFER PATIENT TO [facility] FOR NON EMERGENT MEDICAL NEEDS. [facility] CAN SEE PATIENTS SAME DAY FOR APTS IF PATIENT CALLS FIRST THING IN THE MORNING. E.D. VISIT COUNT (12 MO.) 2 [facility] TOTAL 2 NOTE: Visits indicate total known visits. ED/UCC VISIT TRACKING (12 MO.) 03/19/2019 12:13 [facility] TYPE: Emergency COMPLAINT: - CHEST PAIN 02/11/2019 15:05 [facility] TYPE: Emergency COMPLAINT: - SOB, COUGH INPATIENT VISIT TRACKING (12 MO.) 02/11/2019 18:[address] [facility] TYPE: Medical Surgical COMPLAINT: - COPD EXACERBATION DIAGNOSES: - Do not resuscitate - Nicotine dependence, cigarettes, uncomplicated - Chronic systolic (congestive) heart failure - Chr obstructive pulmon disease with (acute) lower resp infct - Constipation, unspecified - Other residential (current) drug therapy - Encounter for immunization - 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 arthrit and tophaceous dis - Do not resuscitate - Presence of aortocoronary bypass graft - 1 Type 2 diabetes mellitus without complications - Presence of aortocoronary bypass graft - Hypertensive heart disease with heart failure - Acute and chronic respiratory failure with hypoxia - Old myocardial infarction - 1 Type 2 diabetes mellitus without complications - Major depressive disorder, single episode, unspecified - 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 arthrit and tophaceous dis - Athscl heart disease of [place] coronary artery w/o ang pctrs - Chr obstructive pulmon disease with (acute) lower resp infct - Chronic obstructive pulmonary disease w (acute) exacerbation - Pneumonia, unspecified organism - Chronic obstructive pulmonary disease w (acute) exacerbation - Constipation, unspecified - termite treater helper (current) use of aspirin - senior care (current) use of aspirin - Pneumonia, unspecified organism - Chronic systolic (congestive) heart failure - Athscl heart disease of [place] coronary artery w/o ang pctrs - Hypertensive heart disease with heart failure - Encounter for immunization - Other remote computer terminal operator (current) drug therapy - Nicotine dependence, cigarettes, uncomplicated - Major depressive disorder, single episode, unspecified - Old myocardial infarction [email or web address]
--- NOTE | 2019-03-19 15:34 | EKG ---
[facility] [address] [place] [address] Signed Normal sinus rhythm Right bundle branch block Inferior infarct (cited on or before 26-DEC-2017) Abnormal ECG When compared with ECG of 11-FEB-2019 15:26, ST elevation now present in Anterior leads Nonspecific T wave abnormality no longer evident in Anterior leads Confirmed by TA MONSIVAIS DO ([id number]) on 03/19/2019 3:33:59 PM Electronically Signed By: TA MONSIVAIS DO 03/19/19 1534 PATIENT NAME: JUNIOR HUMPHREYS JARRET Electrocardiogram DATE OF : 36 PHYSICIAN: TA MONSIVAIS DO REPORT #: [id number] REPORT IS CONFIDENTIAL AND NOT TO BE RELEASED WITHOUT AUTHORIZATION
--- NOTE | 2019-03-19 18:55 | NUR ---
SHIFT REPORT RECEIVED FROM [facility] AT THIS TIME. ALL QUESTIONS ANSWERED, AWAITING PT'S ARRIVAL.
--- NOTE | 2019-03-19 19:15 | NUR ---
PT ARRIVED TO THE FLOOR FROM THE ED. CLERK [facility] [place] IN [facility] TO COMPLETE INITIAL ADMIT. PT APPEARS COMFORTABLE, LAUGHING WITH FABRIC WORKER. NO DISTRESS NOTED. CALL LIGHT IN REACH.
--- NOTE | 2019-03-19 20:00 | NUR ---
CLARIFICATION DRUG ORDER RECEIVED FROM [facility] REFGARDING PT'S ESCITALOPRAM. PER REPORT, PT HAS 20MG PO ORDERED, BUT 10MG PO IS RECOMMENDED MAXIMUM. UNDER PT'S HOME MED LIST, 20MG PO IS LISTED. DR MONSIVAIS MADE AWARE. PER MELINA PRINCE TO CONTINUE WITH THE ORDERED 20MG. CLARIFICATION ALSO ASKED REGARDING PT'S ORTHOSTATIC HYPOTENSION. PER MELINA PRINCE TO DO ONE TIME ORTHOSTATICS TONIGHT AND AGAIN IN THE MORNING.
--- NOTE | 2019-03-19 20:02 | NUR ---
PATIENT ADMISSION COMPLETED. PATIENT PLACED ON TELE #6. VITALS TAKE AND RECORDED. PATIENT PLACED ON 3.5L VC NC, AND PATIENT STATED "I AM ON 3 AT HOME FOR THE PAST YEAR". PATIENT PROVIDEWD WITH SANDWICH BOX. PATIENT PLACED ON CPOX. PATIENT ORIENTED TO FLOOR, UNIT, AND CALL LIGHT. CALL LIGHT IN REACH.
--- NOTE | 2019-03-19 20:23 | NUR ---
ASSESSMENT COMPLETE. PT A/OX4, DENIES PAIN INCLUDING FROM CHEST. VSS, PT ON TELE, SINUS RHYTHM. CPOX IN PLACE, PT ON 3LNC, O2 SAT WNL. NO DISTRESS NOTED. IV FLUIDS INFUSING PER MD ORDERS, IV SITES X2 WNL. PT DENIES ADDITIONAL NEEDS, CALL LIGHT IN REACH.
--- NOTE | 2019-03-19 21:35 | NUR ---
HELPED PT BACK FROM THE BATHROOM. BLOOD SUGAR DONE AND CHARTED. BEDSIDE TABLE AND CALL LIGHT IN REACH.
--- NOTE | 2019-03-19 21:45 | NUR ---
3 UNITS INSULIN LISPRO ADMINSITERED FOR BS RESULT OF 193.
--- NOTE | 2019-03-19 22:00 | NUR ---
ORTHOSTATIC VITAL SIGNS COMPLETE, SEE INTERVENTION FOR DETAILS. PT REPORTED DIZZINESS WHEN STANDING AT BEDSIDE, DENIED CHEST PAIN. TELE# [address] NO DISTRESS NOTED FROM PT. PT BACK IN BED, DENIES NEEDS. CALL LIGHT IN REACH.
--- NOTE | 2019-03-19 23:53 | NUR ---
PT RESTING IN BED, EYES CLOSED. RR WNL, TELE#[address], HR 80. SINUS RHYTHM. BED ALARM ON. IV FLUIDS INFUSING PER MD ORDERS.
--- NOTE | 2019-03-20 02:05 | NUR ---
O2 OFF OF PT. SPOT CHECK RESULT OF 88%, PT PLACED ON 2.5-3LNC, RETURNED TO MID90'S. ASSESSMENT COMPLETE, NO NEW CHANGES OR CONCERNS. PT REMAINS ON TELE#6, HR 80'S, SINUS RHYTHM WITH PVC'S. PT DENIES CHEST PAIN OR SOB AT THIS TIME. CALL LIGHT IN REACH, BED ALARM ON. August IN ROOM TO COMPLETE VS.
--- NOTE | 2019-03-20 02:11 | NUR ---
20 GAUGE IV TO LEFT AC ALREADY IN PLACE WHEN PT ARRIVED TO THE MEDSUR FLOOR, BUT WAS NOT YET DOCUMENTED. PLACED BY ED RN. DOCUMENTATION COMPLETE.
--- NOTE | 2019-03-20 02:15 | NUR ---
VITALS AND I&OS DONE AND CHARTED. HELPED PT TO THE BSC AMD BACK TO BED WITH HER FWW. BEDSIDE TABLE AND CALL LIGHT IN REACH.
--- NOTE | 2019-03-20 03:15 | NUR ---
NEW BAG OF IV FLUIDS HUNG AND INFUSING PER MD ORDERS, SITE WNL. PT RESTING IN BED, EYES CLOSED, RR WNL. PT APPEARS COMFORTABLE, NO DISTRESS NOTED. CALL LIGHT IN REACH.
--- NOTE | 2019-03-20 04:41 | NUR ---
PT ARRIVED TO THE FLOOR FROM THE ED AT BEGINNING OF SHIFT. VSS, PT ON 2-3LNC. TELE #[address], SINUS RHYTHM. PT DENIED CHEST PAIN SINCE ARRIVAL TO FLOOR, SOB WITH EXERTION. CT NEGATITVE FOR PE. 1PA WITH FWW, BED ALARM ON. IV FLUIDS INFUSING PER MD ORDERS, SITE WNL.
--- NOTE | 2019-03-20 06:57 | NUR ---
SECOND AND FINAL SET OF ORTHOSTATICS COMPLETE. SEE INTERVENTION FOR DETAILS. PT TOLERATED WELL, REPORTED SOME DIZZINESS. TELE#[address] PT INCONTINENT OF URINE, JYOTHI CARE COMPLETE. NEW ATTENDS IN PLACE, PT BACK IN BED. NO FURTHER NEEDS, CALL LIGHT IN REACH. BED ALARM ON. 2LNC IN PLACE.
--- NOTE | 2019-03-20 07:13 | NUR ---
RECEIVED REPORT FROM ONUR DIMAS. pt RESTING IN BED WITH EYES CLOSED, RESPIRATIONS REGULAR AND UNLABORED. WHITEBOARD UPDATED. CALL LIGHT WITHIN REACH.
--- NOTE | 2019-03-20 07:55 | NUR ---
pt RESTING IN BED, WOKE QUICKLY TO VOICE. ASSESSMENT DONE. DENIES PAIN AND SOB AT THIS TIME. MEDICATIONS GIVEN (SEE MAR). pt RECEIVED A PHONE CALL FROM DAISY, DID NOT WANT TO SPEAK AT THIS TIME BUT GAVE THIS RN PERMISSION TO GIVE DAISY AN UPDATE ON CONDITION. NO REQUESTS AT THIS TIME. CALL LIGHT WITHIN REACH.
--- NOTE | 2019-03-20 08:40 | NUR ---
PATIENT TRANSFERRED FROM BED TO BEDSIDE COMMODE WITH STANDBY ASSISTANCE. PATIENT VOIDED AND PERFORMED PERICARE. PATIENT BACK IN BED, CALL LIGHT IN REACH, NO OTHER NEEDS AT THIS TIME.
[2019-03-20] MEDS ORDERED: LISINOPRIL10 MG PO (09:12)
[2019-03-20] MEDS ORDERED: METOPROLOL SUCC25 MG PO (09:12)
--- NOTE | 2019-03-20 09:18 | NUR ---
PATIENT SITTING UP IN BED. HANDS AND FACE WASHED ORAL CARE DONE. DOCTOR IN ROOM. PATIENT DISCHARGING TO HOME TODAY. FRESH ICE WATER GIVEN. CALL BUTTON IN REACH. NO OTHER NEEDS AT THIS TIME.
--- NOTE | 2019-03-20 10:13 | NUR ---
PATIENT RESTING IN BED TALKING TO DAUGHTER ON PHONE. CALL BUTTON IN REACH. NO OTHER NEEDS AT THIS TIME.
--- NOTE | 2019-03-20 17:35 | EKG ---
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
== END 2019-03-20 11:55 | disposition home or self-care (01) ==
LOC: ED 12:13 → MS 12:14
PROVIDERS: ADMIT Student in an Organized Health Care Education/Training Program
DX: I95.1 Orthostatic hypotension (principal); R07.9 Chest pain, unspecified; I25.10 Atherosclerotic heart disease of native coronary artery without angina pectoris; I11.0 Hypertensive heart disease with heart failure; I50.22 Chronic systolic (congestive) heart failure; F17.210 Nicotine dependence, cigarettes, uncomplicated; J44.9 Chronic obstructive pulmonary disease, unspecified; J96.11 Chronic respiratory failure with hypoxia; F39 Unspecified mood [affective] disorder; E11.9 Type 2 diabetes mellitus without complications; Z66 Do not resuscitate; Z79.82 Long term (current) use of aspirin; Z79.51 Long term (current) use of inhaled steroids; Z95.1 Presence of aortocoronary bypass graft; Z95.5 Presence of coronary angioplasty implant and graft; Z95.810 Presence of automatic (implantable) cardiac defibrillator; Z79.52 Long term (current) use of systemic steroids; Z79.899 Other long term (current) drug therapy
CPT/HCPCS: 36415; 71045; 71260; 80048; 80053; 81001; 83735; 83880; 84484; 85025; 85379; 93005; 93010; 94640; 94760; 96372; 99285-25; 99406; G0378; J1650; J1815; J7121; Q9967

== ENCOUNTER 2019-05-09 11:36 | Emergency (ER) | payer MEDICARE, OTHER ==
[~2019-05-09] VITALS: Ht 160 cm; Wt 105.1 kg
--- OUTSIDE RECORDS SUMMARY | ~2019-05-09 | XMS | Encounter Summary ---
Demographics + + + | Address | [address] | | | [place] [address] | + + + | Home Phone | | + + + | Preferred Language | Unknown | + + + | Marital Status | | + + + | Pentecostal Affiliation | 1041 | + + + | Race | Unknown | + + + | Ethnic Group | Unknown | + + + Author + + + | Author | [facility] | | | and [place] | + + + | Organization | [facility] | | [...] Team Providers + +------+ + | Care Bag Machine Operator Helper Name | Role | Phone | + +------+ + | Pcp, Prov Inactive | PCP | | + +------+ + Encounter Details +--------+ + + + + | Date | Type | Department | Care Team | Description | +--------+ + + + + | 01/09/ | Hospital | [facility] | Conversion | Pain | | 2018 | Encounter | CONVERSION [address] | Transaction, | | | | | [address] | Provider Unknown | | | | | [place], [place] | [phone] | | | | | [address] | | | | | | [phone] | | | +--------+ + + + [...] [address] | | | | | | [facility] | | | | | | [place] | | | | | | [address] | | | | | | | [...] [place] | | | | | | [place] [address] | | | | | | [phone] | | | | | | | [...] +--------+ + + + | XR CHEST 2 VIEWS | Routin | 02/08/2015 | | Results for this | | | e | 2:01 AM | | procedure are in the | | | | PDT | | results section. | + +--------+ + + + documented in this encounter Results XR Chest 2 Vws (02/08/2015 2:01 AM PDT) + + | Specimen | [...] | Pain Generalized pain | + + documented in this encounter"
--- OUTSIDE RECORDS SUMMARY | ~2019-05-09 | XMS | Encounter Summary ---
Demographics + + + | Address | [address] | | | [place] [address] | + + + | Home Phone | | + + + | Preferred Language | Unknown | + + + | Marital Status | | + + + | Orthodox Affiliation | 1041 | + + + [...] Team Providers + +------+ + | Care Research Greenhouse Supervisor Name | Role | Phone | + +------+ + PCP | Unavailable | + +------+ + Encounter Details +--------+ + + + + | Date | Type | Department | Care Team | Description | +--------+ + + + + | 02/09/ | [facility] | [facility] | | | | 2006 - | Encounter | MED CTR MED ONC | | | | | | [address] | | | | 02/10/ | | [place] [address] | | | | 2005 | | [phone] | | | +--------+ + + + [...] [place] | | | | | | [address] | | | | | | | [...] | | | | | [place] [address] | | | | | | [phone] | | | | | | | | +--------+ + + + + | 09/10/ | Procedure | Cardiology | | | | 2019 | visit | | | | +--------+ + + + + documented as of this encounter Visit Diagnoses Not on filedocumented in this encounter"
--- OUTSIDE RECORDS SUMMARY | ~2019-05-09 | XMS | Encounter Summary ---
Demographics + + + | Address | [address] | | | [place] [address] | + + + | Home Phone | | + + + | Preferred Language | Unknown | + + + | Marital Status | | + + + | Restorationism Affiliation | 1041 | + + + | Race | Unknown | + + + | Ethnic Group | Unknown | + + + Author + + + | Author | [facility] | | | and [place] | + + + | Organization | [facility] | | [...] Team Providers + +------+ + | Care Manager Analytical Name | Role | Phone | + +------+ + PCP | Unavailable | + +------+ + Encounter Details +--------+ + + + + | Date | Type | Department | Care Team | Description | +--------+ + + + + | 01/27/ | Abstract | [place] [facility] | DATA MIGR[facility] | | | 2011 | | Conversion Location | SR | | | | | [phone] | | | +--------+ + + + [...] | Blood Pressure | 122/74 | 01/27/2009 12:00 AM | | | | | PDT | | + + + + + | Pulse | - | - | | + + + + + | Temperature | - | - | | + [...] | 106.6 kg (235 lb) | 01/27/2009 12:00 AM | | | | | PDT | | + + + + + | Height | 160 cm (5' 3") | 01/27/2009 12:00 AM | | | | | PDT | | + + + + + | Body Mass Index | 41.63 | 01/27/2009 12:00 AM | | | | | PDT | | + + + + + documented in this encounter Plan of Treatment [...] [place] | | | | | | [address] | | | | | | | [...] | | | | | [place] [address] | | | | | | [phone] | | | | | | | | +--------+ + + + + | 09/10/ | Procedure | Cardiology | | | | 2019 | visit | | | | +--------+ + + + + documented as of this encounter Visit Diagnoses Not on filedocumented in this encounter
--- OUTSIDE RECORDS SUMMARY | ~2019-05-09 | XMS | Encounter Summary ---
Demographics + + + | Address | [address] | | | [place] [address] | + + + | Home Phone | | + + + | Preferred Language | Unknown | + + + | Marital Status | | + + + | Jewish Affiliation | 1041 | + + + [...] Team Providers + +------+ + | Care Rehab Physician Name | Role | Phone | + +------+ + PCP | Unavailable | + +------+ + Encounter Details +--------+ + + + + | Date | Type | Department | Care Team | Description | +--------+ + + + + | 03/31/ | Hospital | [facility] | Lydia Christensen | | | 2006 | Encounter | MED CTR EMERGENCY | Neeru Hwang MD [address] | | | | | CENTER [address] | [facility] | | | | | [place], [place] | [place] [address] | | | | | [address] | [phone] | | | | | [phone] | | | +--------+ + + + [...] [place] | | | | | | [address] | | | | | | | [...] | | | | | [place] [address] | | | | | | [phone] | | | | | | | | +--------+ + + + + | 09/10/ | Procedure | Cardiology | | | | 2019 | visit | | | | +--------+ + + + + documented as of this encounter Visit Diagnoses Not on filedocumented in this encounter"
--- OUTSIDE RECORDS SUMMARY | ~2019-05-09 | XMS | Encounter Summary ---
Demographics + + + | Address | [address] | | | [place] [address] | + + + | Home Phone | | + + + | Preferred Language | Unknown | + + + | Marital Status | | + + + | Christian Affiliation | 1041 | + + + | Race | Unknown | + + + | Ethnic Group | Unknown | + + + Author + + + | Author | [facility] | | | and [place] | + + + | Organization | [facility] | | | [...] Team Providers + +------+ + | Care Director Of Parks And Recreation Name | Role | Phone | + [...] Closed | | Cardiology | Diagnoses | Jenn, | [place] | | | | | BS ICD 3 | Roxana Menjivar, | Cardiology | | | | | month remote | PA-C [address] | [place] | | | | | Procedures | [address] | [address] | | | | | REMOTE | [place] | | | | | | DEVICE CHECK | [address] | [place], [place] | | | | | | [place], | [address] | | | | | | [place] | Phone: | | | | | | [address] | [phone] | | | | | | Phone: | Fax: | | | | | | [phone] | [phone] | | | | | | Fax: | | | | | | | [phone] | | +--------+--------+ + + + + Encounter Details +--------+ + + + + | Date | Type | Department | Care Team | Description | +--------+ + + + + | 03/13/ | Procedure | [facility] | | Cardiac | | 2019 | visit | CARDIOLOGY [facility] | | defibrillator in | | | | [address] | | situ (Primary Dx) | | | | [place], [place] | | | | | | [address] | | | | | | [phone] | | | +--------+ + + + [...] | 06/12/ | Office | Cardiology | Gertrudis, Barak | | | 2019 | Visit | | [address] | | | | | | [address] | | | | | | [place] | | | | | | [address] | | | | | | | [...] | | | | | [place] [address] | | | | | | [phone] | | | | | | | [...] encounter Results Device Interrogation - Remote (03/13/2019 8:00 AM PDT) + + + | Narrative | Performed At | + + + | [facility] | | ONUR Neal 03/13/2019 13:16ICD REMOTE INTERROGATION REPORT | | | Name: Yuliana Marte Mateo PCP: Roxana Barajas PA-C : 1940MRN: | | | [id number] Primary cardiology provider: Tres Heiwtt Primary | | | electrophysiology provider: Erin Caba Device layboy operator: | | | [employer]Security Device type: Dual chamber Battery Longevity: 3 [...]
--- OUTSIDE RECORDS SUMMARY | ~2019-05-09 | XMS | Encounter Summary ---
Demographics + + + | Address | [address] | | | [place] [address] | + + + | Home Phone [...] Team Providers + +------+ + | Care Grade Foreman Name | Role | Phone | + +------+ + PCP | Unavailable | + +------+ + Encounter Details +--------+ + + + + | Date | Type | Department | Care Team | Description | +--------+ + + + + | 01/27/ | [facility] | [facility] | | | | 2006 | Encounter | MED CTR LABORATORY | | | | | | [address] | | | | | | [place] | | | | | | [address] | | | | | | [phone] | | | +--------+ + + + [...] [place] | | | | | | [address] | | | | | | | [...] | | | | | [place] [address] | | | | | | [phone] | | | | | | | | +--------+ + + + + | 09/10/ | Procedure | Cardiology | | | | 2019 | visit | | | | +--------+ + + + + documented as of this encounter Visit Diagnoses Not on filedocumented in this encounter"
--- OUTSIDE RECORDS SUMMARY | ~2019-05-09 | XMS | Encounter Summary ---
Demographics + + + | Address | [address] | | | [place] [address] | + + + | Home Phone | | + + + | Preferred Language | Unknown | + + + | Marital Status | | + + + | Islam Affiliation | 1041 | + + + | Race | Unknown | + + + | Ethnic Group | Unknown | + + + Author + + + | Author | [facility] | | | and [place] | + + + | Organization | [facility] | | | [...] Team Providers + +------+ + | Care Biztalk Consultant Name | Role | Phone | + +------+ + PCP | Unavailable | + +------+ + Encounter Details +--------+ + + + + | Date | Type | Department | Care Team | Description | +--------+ + + + + | 03/27/ | Hospital | [facility] | Arthur Childers | Fitting and | | 2009 | Encounter | [facility] | MD Johnnie [address] | adjustment of | | | | CLINICAL DECISION | [address] [place] | automatic | | | | [address] | [address] | implantable cardiac | | | | [place], [place] | [phone] | defibrillator | | | | [address] | | | | | | [phone] | | | +--------+ + + + [...] 2019 | Visit | | [address] | | | | | | [address] | | | | | | [place] | | | | | | [address] | | | | | | | [...] | | | | | [place] [address] | | | | | | [phone] | | | | | | | [...]
--- OUTSIDE RECORDS SUMMARY | ~2019-05-09 | XMS | Encounter Summary ---
Demographics + + + | Address | [address] | | | [place] [address] | + + + | Home Phone | | + + + | Preferred Language | Unknown | + + + | Marital Status | | + + + | Mandaen Affiliation | 1041 | + + + | Race | Unknown | + + + | Ethnic Group | Unknown | + + + Author + + + | Author | [facility] | | | and [place] | + + + | Organization | [facility] | | | [...] Team Providers + +------+ + | Care M48/M60 Tank Driver Name | Role | Phone | + +------+ + PCP | Unavailable | + +------+ + Encounter Details +--------+ + + + + | Date | Type | Department | Care Team | Description | +--------+ + + + + | 08/13/ | Hospital | [facility] | Harsha Avilez, | | | 2003 - | Encounter | HEART MED CTR | [address] | | | | | CARDIAC TELEMETRY | [address] | | | 08/15/ | | [address] | [place] [address] | | | 2003 | | [place] | [phone] | | | | | [address] | | | | | | [phone] | | | +--------+ + + + [...] [place] | | | | | | [address] | | | | | | | [...] | | | | | [place] [address] | | | | | | [phone] | | | | | | | | +--------+ + + + + | 09/10/ | Procedure | Cardiology | | | | 2019 | visit | | | | +--------+ + + + + documented as of this encounter Visit Diagnoses Not on filedocumented in this encounter"
--- OUTSIDE RECORDS SUMMARY | ~2019-05-09 | XMS | Encounter Summary ---
Demographics + + + | Address | [address] | | | [place] [address] | + + + | Home Phone | | + + + | Preferred Language | Unknown | + + + | Marital Status | | + + + | Catholic Affiliation | 1041 | + + + [...] Team Providers + +------+ + | Care Government Services Professional Name | Role | Phone | + +------+ + | Pcp, Prov Inactive | PCP | | + +------+ + Encounter Details +--------+ + + + + | Date | Type | Department | Care Team | Description | +--------+ + + + + | 12/26/ | Hospital | [facility] | Pasha Buck | Pain; S/P drug | | 2018 - | Encounter | [facility] | MD [address] | eluting coronary | | | | CARE FLOOR [address] [place], [place] | stent placement; | | 12/31/ | | [address] | [id number] | NSTEMI (non-ST | | 2018 | | [place], [place] | | elevated myocardial | | | | [address] | | infarction) ([facility]) | | | | [phone] | | | +--------+ + + + [...] 1609 Date of Service: 12/31/17911 Status: Signed Usability Engineer: Francesco Edmonds MD (Physician) Patient: Yuliana Humphreys : 1940 Date of Admission: 12/26/2017 Date of Discharge: 12/31/2017 Treatment Team: Consulting Physician: Yvette Felder MD Admitting Provider: Pasha uBck MD Discharging Provider: Francesco Edmonds MD Discharge [...] was walking. She wa s transferred to [facility] due to possible NSTEMI. She underwent [...] Discharge Information: Follow up: Tres Beltran MD [facility] [place] [address] Schedule an appointment as soon as possible for a visit in 10 days hospital follow up. NSTEMI Roxana Barajas PA-C [address] [place] [address] Schedule an appointment as soon as possible [...] 12/31/171702 Date of Service: 12/31/171701 Status: Signed Usability Engineer: Pamela Wagner RN (Registered Nurse) Patient and daughter received discharge instructions, and Rx. All questions answered, and a ll belongings sent with patient, belongings check list is complete. All patient VS are stabl e, patient is afebrile and denies SOB, CP or N/V. PIV x 2 removed, home oxygen with patient. Patient wheeled out in wheelchair by [facility] escort to personal vehicle, discharged home wit h daughter. Pamela Wagner RN onver darnell Transaction, Provider Unknown - 12/31/2017 10:14 AM PDT Case Management by Wandy Gong RN at 12/31/17 1014 Author: Wandy Gong RN Service: (none) Author Type: Registered Nurse Filed: 12/31/17 1054 Date of Service: 12/31/17 1014 Status: Addendum Usability Engineer: Wandy Gong RN (Registered Nurse) Related Notes: Original Note by Wandy Gong RN (Registered Nurse) filed at 12/31/17 101 5 Pt to d/c home today. Pt will return home with caregivers/family. Family to transport Per [facility], they will deliver a portable tank to room today. Per [facility], they will accept pt Wednesday. Faxed AVS Notified Kell with [facility] of d/c plan, no questions Rita onver darnell Transaction, Provider Unknown - 12/31/2017 5:39 AM PDT Nurse Progress Note by Aishwarya Marr RN at 12/31/17 0539 Author: Aishwarya Marr RN Service: (none) Author Type: Registered Nurse Filed: 12/31/17 0541 Date of Service: 12/31/17 0539 Status: Signed Usability Engineer: Aishwarya Marr RN (Registered Nurse) Pt rested [...] 12/30/171807 Date of Service: 12/30/171805 Status: Signed Usability Engineer: Pamela Wagner RN (Registered Nurse) Patient had [...] 12/30/171851 Date of Service: 12/30/171728 Status: Signed Usability Engineer: Parmjit Hernandez PT (Physical Therapist) PHYSICAL THERAPY TREATMENT NOTE PT Received On: 12/30/17 Reason for Treatment: Deconditioning Requires PT Follow Up: PT tech Follow up PT Only?: No Assistance Required: 1 person Associate Professor Of Sociology Needed: No Recommendations: Home Assist, PT PT [...] 1547 Date of Service: 12/30/171543 Status: Signed Usability Engineer: Francesco Edmonds MD (Physician) [facility] Service: Hospitalist Progress Note Pt: Yuliana Humphreys AGE/SEX: 77 y.o. female ROOM: [address] [place] [address] : 1940 PCP: Roxana Barajas ADMIT DATE: [...] (2003), HTN, current smoker, who presented to [facility] in [place] to midsternal chest pain that started when she went for a walk. The pain radiated to her L shoulder and she became nauseous and diaphoretic. The patient had similar episodes when she had her CABG in 1994. EKG was done at [place] which revealed non-specific ST-T changes (no previous EKG to compare). She had borderline troponin elevation and was transferred to [facility] for cardiology services on heparin gtt. The patient was initially admitted to the hospitalist service on the afternoon of 12/26. Car diology was consulted, and patient underwent coronary angiogram with Dr. Felder the morning of 12/27. Two stents were placed in the vein graft to the OM3. During the procedure, the pat ient became progressively encephalopathic with increasing tachypnea and wheezing, so the ICU team was consulted. The patient was started on BiPAP and brought to the ICU. ICU Timeline: 12/27- transferred from catheterization laboratory technician to ICU for decreased LOC following [...] Principal Problem: NSTEMI (non-ST elevated myocardial infarction) ([facility]) Active Problems: S/P CABG x 4 Ischemic dilated cardiomyopathy ([facility]) Cardiac defibrillator in situ Hypertension Morbid obesity ([facility]) Tobacco use disorder Acute metabolic encephalopathy Acute respiratory failure with hypoxia and hypercapnia ([facility]) Pulmonary edema cardiac cause ([facility]) ASSESSMENT & PLAN NSTEMI - patient [...] and managing patient and counseling/coordination. Dictation software, auctionPAL, used which may contain error for similar [...] Date of Service: 12/30/17 1210 Status: Addendum Usability Engineer: Wandy Gong RN (Registered Nurse) Related Notes: Original Note by Wandy Gong RN (Registered Nurse) filed at 12/30/17 122 3 Pt needing home O2, she has selected [facility]. Notified [facility], radha gardner will start process, faxed script. PT recommending HH services, pt wants [facility]. Referral sent. F2F referral in AVS Tentative d/c is Wednesday Tc to BASHIR Castorena with [facility] re d/c plan, Rita onver darnell Transaction, Provider Unknown - 12/30/2017 11:26 AM PDT Progress Notes by Dasha Yun CRT at 12/30/17 1126 Author: Dasha Yun CRT Service: (none) Author Type: Certified Respiratory The rapist Filed: 12/30/17 112 Date of Service: 12/30/17 112 Status: Signed Usability Engineer: Dasha Yun CRT (Certified Respiratory Therapist) [facility] Department of Respiratory Long-Term Oxygen Evaluation (Evaluation is valid for 48 [...] 12/30/17431 Date of Service: 12/30/17431 Status: Signed Usability Engineer: Merlene Vieira RN (Registered Nurse) Chart check complete. onver darnell Transaction, Provider Unknown - 12/29/2017 5:39 PM PDT Nurse Progress Note by Pamela Wagner RN at 12/29/171738 Author: Pamela Wagner RN Service: (none) Author Type: Registered Nurse Filed: 12/29/171746 Date of Service: 12/29/171738 Status: Addendum Usability Engineer: Pamela Wagner RN (Registered Nurse) Related Notes: [...] Tres Beltran MD at 12/29/17 170 Author: rTes Beltran MD Service: (none) Author Type: Physician Filed: 12/30/17 1621 Date of Service: 12/29/171705 Status: Signed Usability Engineer: Tres Beltran MD (Physician) Related Notes: Original Note by Tres Beltran MD (Physician) filed at 12/29/[address] [facility] Service: Cardiology Progress Note SUBJECTIVE Currently [...] Mild LV dysfunction, ejection fraction 40-45%. 8. Xvjkhuce-ur-paxxjm pulmonary hypertension without significant valvular disease. 9. Obesity. PLAN: Continue with her current regimen, including aspirin and Plavix, aggressive pulmonar y toilet, and aerosols for her COPD. Careful diuresis is needed. TRES BELTRAN MD 12/29/2017 onversion Transacti on, Provider Unknown - 12/29/2017 12:37 PM PDTFormatting of this note might be different fro m the original. Case Management by Wandy Gong RN at 12/29/17 9284 Author: Wandy Gong RN Service: (none) Author Type: Registered Nurse Filed: 12/29/17 6591 Date of Service: 12/29/17 0352 Status: Signed Usability Engineer: Wandy Gong RN (Registered Nurse) Met with pt and daughter Cierra re d/ c planning. Pt resides in [place], uses [employer] and has a state paid caregiver. Pt states she plans to return home and no needs are expressed at thi s time. [facility] [phone] re d/c plan. Family to transport back [facility] Francesco Hardy i, MD - 12/29/2017 12:37 PM PDTFormatting of this note might be different from the o riginal. Progress Notes by Francesco Edmonds MD at 12/29/17 1237 Author: Francesco Edmonds MD Service: Hospitalist Author Type: Physician Filed: 12/29/17 1244 Date of Service: 12/29/171236 Status: Signed Usability Engineer: Francesco Edmonds MD (Physician) [facility] Service: Hospitalist Progress Note Pt: Yuliana Humphreys AGE/SEX: 77 y.o. female ROOM: [address] [place] [address] : 1940 PCP: Roxana Barajas ADMIT DATE: [...] (2003), HTN, current smoker, who presented to [facility] in [place] to midsternal chest pain that started when she went for a walk. The pain radiated to her L shoulder and she became nauseous and diaphoretic. The patient had similar episodes when she had her CABG in 1994. EKG was done at [place] which revealed non-specific ST-T changes (no previous EKG to compare). She had borderline troponin elevation and was transferred to [facility] for cardiology services on heparin gtt. The patient was initially admitted to the hospitalist service on the afternoon of 12/26. Car diology was consulted, and patient underwent coronary angiogram with Dr. Felder the morning of 12/27. Two stents were placed in the vein graft to the OM3. During the procedure, the pat ient became progressively encephalopathic with increasing tachypnea and wheezing, so the ICU team was consulted. The patient was started on BiPAP and brought to the ICU. ICU Timeline: 12/27- transferred from catheterization laboratory technician to ICU for decreased LOC following [...] Component Value Units Date/Time MRSA by PCR [[id number]] Collected: 12/27/17 1133 Specimen: Nasopharyngeal from Nares(Nose) [...] Principal Problem: NSTEMI (non-ST elevated myocardial infarction) ([facility]) Active Problems: S/P CABG x 4 Ischemic dilated cardiomyopathy ([facility]) Cardiac defibrillator in situ Hypertension Morbid obesity ([facility]) Tobacco use disorder Acute metabolic encephalopathy Acute respiratory failure with hypoxia and hypercapnia ([facility]) Pulmonary edema cardiac cause ([facility]) ASSESSMENT & PLAN NSTEMI - patient [...] and managing patient and counseling/coordination. Dictation software, auctionPAL, used which may contain error for similar [...] 12/29/17650 Date of Service: 12/29/17650 Status: Signed Usability Engineer: Merlene Vieira RN (Registered Nurse) No acute events overnight, VSS, no c/o chest pain. onver darnell Transaction, Provider Unknown - 12/29/2017 3:24 AM PDT Nurse Progress Note by Merlene Vieira RN at 12/29/17323 Author: Merlene Vieira RN Service: (none) Author Type: Registered Nurse Filed: 12/29/175 Date of Service: 12/29/17323 Status: Signed Usability Engineer: Merlene Vieira RN (Registered Nurse) 12hr chart check complete. onver darnell Transaction, Provider Unknown - 12/28/2017 5:48 PM PDT Nurse Progress Note by Johnson Ames RN at 12/28/171747 Author: Johnson Ames RN Service: (none) Author Type: Registered Nurse Filed: 12/28/17 175 Date of Service: 12/28/171747 Status: Signed Usability Engineer: Johnson Ames RN (Registered Nurse) PT transfer to [facility] at 1500 in stable condition. New [...] Author: ESTER Rice Service: (none) Author Type: Signalman Filed: 12/28/17 1541 Date of Service: 12/28/17 153 Status: Signed Usability Engineer: ESTER Rice (Signalman) 12/28/17 1521 Discharge Planning Evaluation Admitting Diagnosis [...] [place] Relationship to Patient Caregiver Phone number [phone] Mental Status Unable to answer questions (Pt was asleep) Power of Corn Shredder No Resources Financial concerns No Transportation issues No (Pt can drive, but not often. However, her caregiver and daughter will pick pt up from the hospital. ) Patient/Family concerns [place] of Pharmacy [facility] Anticipated Disposition Facility Type Home Met with Yuliana Humphreys and discussed discharge planning. However, pt was asleep sp assessm ent was done over the phone with pt's daughter, Cierra Higgins ([phone]). Pt is a 77 y .o., female who resides with her daughter (Cierra), Cierra's boyfriend, and Cierra's 23 year old son. Pt resides at: [address] [place] [address], [place] [facility]. Pt does not have to w alk up any steps to get into the house, there is a ramp. Pt's daughter reports good family and friend support. Pt's daughter states that she helps her mom with cooking, cleaning, etc. Patient's PCP is: Duc Person at [facility] Pt's daughter states that she is independent with mobility. However, if pt is walking a dis tance or traveling, she will use a cane. Pt's daughter states that pt does not use home oxygen. Pt has not received previous outpatient services. Pt is not currently on any blood thinners. Patient's insurance: Medicaid, Medicare, and [facility] insurance Coverage concerns: No Medication coverage/concerns: No Rx Bedside Delivery: Pt [facility] utilized / needed: Pt receives caregiving hours through [facility] [employer] [facility] in [place]. Pt's rn field case manager is Melly Harris [phone]. Pt's ca regiver is Martha Lan ([phone]). Pt's daughter states that she gets around 18 hour s a week of caregiving services. Assistance in transportation: Pt can drive a small amount. However, her caregiver helps wit h transportation Identification of any specific education / training: TBD Barriers to Discharge / Alternative housing needed: TBD Anticipated DCP: Home Pt does not have an Advanced Directive or a Power of Corn Shredder. Paperwork should be given to family (pt was transferred from ICU prior to receiving paperwork). SETER Rice onver darnell Transaction, Provider Unknown - 12/28/2017 2:16 PM PDT Nurse Progress Note by Johnson Ames RN at 12/28/17 9419 Author: Johnson Ames RN Service: (none) Author Type: Registered Nurse Filed: 12/28/17 1416 Date of Service: 12/28/17 1416 Status: Signed Usability Engineer: Johnson Ames, RN (Registered Nurse) Report received from Leticia MACHINE COIL ASSEMBLER. PT transferred to [facility] in stable condition. onver darnell Transaction, Provider Unknown - 12/28/2017 12:23 PM PDT Case Management by ESTER Cota at 12/28/17 1223 Author: ESTER Cota Service: (none) Author Type: Signalman Filed: 12/28/17 1225 Date of Service: 12/28/17 1223 Status: Signed Usability Engineer: ESTER Cota (Signalman) Spoke with Kell from [facility]. Informed that pt has not yet been assessed. She is reque sting that the discharging CM call her to notify of any d/c needs and give an update regardi ng d/c plan. Kell- [phone] onver darnell Transaction, Provider Unknown - 12/28/2017 10:51 AM PDT Case Management by ESTER Rice at 12/28/17 1051 Author: ESTER Rice Service: (none) Author Type: Signalman Filed: 12/28/17 1058 Date of Service: 12/28/17 1051 Status: Signed Usability Engineer: ESTER Rice (Signalman) CM attended morning rounds. Pt is in [...] at 12/28/17405 Author: Sherly Coppola DO Service: Molding Plasterer Author Type: Physician Filed: 12/28/17 0624 Date of Service: 12/28/17405 Status: Signed Usability Engineer: Sherly Coppola DO (Physician) [facility] Service: Molding Plasterer Progress Note Yuliana Humphreys 77 y.o. Hospital Day: LOS: 2 days Post-Op Day: * No surgery found * Consulting Physicians Treatment Team: Consulting Physician: Nash Benitez MD Consulting Physician: Yvette Felder MD Admitting Provider: Pasha Buck MD SUBJECTIVE Patient Summary: From Sandrita Jonniedolores's 12/27/17 Consult Note: The patient is a 77 y.o. female with significant past medical history of CAD s/p CABG x3, i schemic dilated cardiomyopathy (last EF 50-55% 02/28), HTN, paroxysmal vtach s/p AICD placem ent (2003), HTN, current smoker, who presented to [facility] in [place] due to midsternal chest pain that started when she went for a walk. The pain radiated to her L shou lder and she became nauseous and diaphoretic. The patient had similar episodes when she had her CABG in 1994. EKG was done at [place] which revealed non-specific ST-T changes (no pre vious EKG to compare). She had borderline troponin elevation and was transferred to [facility] for cardiology services on heparin gtt. The patient was initially admitted to the hospitalist service on the afternoon of 12/26. Car diology was consulted, and patient underwent coronary angiogram with Dr. Felder the morning of 12/27. Two stents were placed in the vein graft to the OM3. During the procedure, the pat ient became progressively encephalopathic with increasing tachypnea and wheezing, so the ICU team was consulted. The patient was started on BiPAP and brought to the ICU. ICU Timeline: 12/27- transferred from catheterization laboratory technician to ICU for decreased LOC following [...] Principal Problem: NSTEMI (non-ST elevated myocardial infarction) ([facility]) Active Problems: S/P CABG x 4 [...] placement to SVG to OM3 by Dr. Felder 12/27. On ASA , atorvastatin, clopidogrel, lisinopril [...] Lasix post proc edure. Current smoker - delinquency counselor regarding smoking cessation COPD/asthma: cont scheduled [...] 12/27/171738 Date of Service: 12/27/171738 Status: Signed Usability Engineer: Melyssa Harley RN (Registered Nurse) End of shift chart review completed onver darnell Transaction, Provider Unknown - 12/27/2017 5:00 PM PDT Progress Notes by Melyssa Harley RN at 12/27/17 1700 Author: Melyssa Harley RN Service: (none) Author Type: Registered Nurse Filed: 12/27/17 6585 Date of Service: 12/27/171699 Status: Signed Usability Engineer: Melyssa Harley RN (Registered Nurse) Pt unable [...] Date of Service: 12/27/17 1635 Status: Addendum Usability Engineer: Herbert Mayorga RRT (Registered Respiratory Therapist) Related [...] Author: ESTER Cota Service: (none) Author Type: Signalman Filed: 12/27/17 1417 Date of Service: 12/27/17 1415 Status: Signed Usability Engineer: ESTER Cota (Signalman) Received message to call Kell Amaro to discuss d/c planning. Pt was just admitt ed to the ICU. I plan to complete an assessment either today or tomorrow. Called Kell griffin and left a VM requesting a return call. Kell- [phone] onver darnell Transaction, Provider Unknown - 12/27/2017 11:23 AM PDT Case Management by Wandy Gong RN at 12/27/17 1123 Author: Wandy Gong RN Service: (none) Author Type: Registered Nurse Filed: 12/27/17 1123 Date of Service: 12/27/17 1123 Status: Signed Usability Engineer: Wandy Gong RN (Registered Nurse) 12/27/17 1100 [...] Date of Service: 12/27/17 1115 Status: Signed Usability Engineer: Melyssa Harley RN (Registered Nurse) Per Dr. Israel Griffin tko NS due to fluid overload onver darnell Transaction, Provider Unknown - 12/27/2017 11:01 AM PDT Progress Notes by Melyssa Harley RN at 12/27/17 110 Author: Melyssa Harley RN Service: (none) Author Type: Registered Nurse Filed: 12/27/17 1132 Date of Service: 12/27/17 110 Status: Signed Usability Engineer: Melyssa Harley RN (Registered Nurse) Pt arrived to ICU room [address]21 onver darnell Transaction, Provider Unknown - 12/27/2017 7:35 AM PDT Nurse Progress Note by Jane Real RN at 12/27/17 0735 Author: Jane Real RN Service: -Emergency Author Type: Registered Nurse Filed: 12/27/17 1034 Date of Service: 12/27/17 0735 Status: Signed Usability Engineer: Jane Real RN (Registered Nurse) During report catheterization laboratory technician onur howell came to retrieve pt for procedure. Transfer of care performe d without event. onver darnell Transaction, Provider Unknown - 12/27/2017 2:21 AM PDT Nurse Progress Note by Demian Ling RN at 12/27/17220 Author: Demian Ling RN Service: (none) Author Type: Registered Nurse Filed: 12/27/17 0606 Date of Service: 12/27/17220 Status: Addendum Usability Engineer: Demian Ling RN (Registered Nurse) Related Notes: [...] 12/26/171920 Date of Service: 12/26/171919 Status: Signed Usability Engineer: Lilliana Westbrook RN (Registered Nurse) Chart check review complete. Lilliana Westbrook onver darnell Transaction, Provider Unknown - 12/26/2017 4:50 PM PDT Pharmacy Note by Rolando Russell RPH at 12/26/171649 Author: Rolando Russell RPH Service: Pharmacy Author Type: Pharmacist Filed: 12/26/171649 Date of Service: 12/26/171649 Status: Signed Usability Engineer: Rolando Russell RPH (Pharmacist) Renal Dosing Monitoring: [...] [place] | | | | | | [address] | | | | | | | [...] | | | | | [place] [address] | | | | | | [phone] | | | | | | | [...] | + +--------+ + + + | BRAULIO IRBY, | Routin | 12/27/2017 | | Results [...] | | | Fingerstick | performed at [facility] | | LAB | | | | [address];[place], [place] | | | | | | [address] | | | | + + + [...] | | | Fingerstick | performed at [facility];[address] | | LAB | | [address];[place], [place] | | | | | | [address] | | | | + + + [...] | | | Fingerstick | performed at [facility];[address] | | LAB | | | | [address];[place] | | | | | | [address] | | | | + + + [...] | | | Basophils | performed at [facility];[address] | K/uL | LAB | | | | [address];[place], [place] | | | | | | [address] | | | | + + + [...] EXTERNAL | | | | performed at [facility] | | LAB | | | | [facility];[place], [place] | | | | | | [address] | | | | + + + [...] EXTERNAL | | | | performed at [facility];[address] | | LAB | | | | [address];[place] | | | | | | [address] | | | | + + + [...] | | | | | | MDRD [facility] traceable | | | | | | equation.Testing | | | | | | performed at [facility];[address] | | | | | | [facility];[place], [place] | | | | | | [address] | | | | + + + [...] | | | Fingerstick | performed at [facility];[address] | | LAB | | | | [address];[place] | | | | | | [address] | | | | + + + [...] | | | Fingerstick | performed at [facility];[address] | | LAB | | | | [address];[place], [place] | | | | | | [address] | | | | + + + [...] | | | Fingerstick | performed at [facility];[address] | | LAB | | | | [address];[place] | | | | | | [address] | | | | + + + [...] | | | Fingerstick | performed at [facility];[address] | | LAB | | | | [address];[place] | | | | | | [address] | | | | + + + [...] | | | Basophils | performed at [facility], [address] | K[address] | LAB | | | | [address], | | | | | | [place] [address] | | | | + + + [...] EXTERNAL | | | | performed at [facility], [address] | | LAB | | | | [address], | | | | | | [place] [address] | | | | + + + [...] EXTERNAL | | | | performed at [facility], [address] | | LAB | | | | [place], | | | | | | [place] [address] | | | | + + + [...] | | | | | performed at [facility], [address] | | | | | | [facility], | | | | | | [place] [address] | | | | + + + [...] | | | Fingerstick | performed at [facility];[address] | | LAB | | | | [address];[place], [place] | | | | | | [address] | | | | + + + [...] | | | Fingerstick | performed at [facility];[address] | | LAB | | | | [address];[place] | | | | | | [address] | | | | + + + [...] | | | Fingerstick | performed at [facility];[address] | | LAB | | | | [address];[place] | | | | | | [address] | | | | + + + [...] | | | Basophils | performed at [facility];[address] | K/uL | LAB | | | | [address] Rodrig[address];[place] | | | | | | [address] | | | | + + + [...] EXTERNAL | | | | performed at [facility];[address] | | LAB | | | | [facility];[place], [place] | | | | | | [address] | | | | + + + [...] EXTERNAL | | | | performed at [facility] | | LAB | | | | Cindy Rodriges;[place] | | | | | | [address] | | | | + + + [...] EXTERNAL | | | | performed at [facility];[address] | | LAB | | | | [address]indy Rodriges;[place], [place] | | | | | | [address] | | | | + + + [...] | | | | | performed at [facility];[address] | | | | | | [facility];[place], [place] | | | | | | [address] | | | | + + + [...] | | | Fingerstick | performed at [facility];[address] | | LAB | | | | [address];[place], [place] | | | | | | [address] | | | | + + + [...] | | | Fingerstick | performed at [facility];[address] | | LAB | | | | [address]indy Rodriges;[place] | | | | | | [address] | | | | + + + [...] | | | Fingerstick | performed at [facility];[address] | | LAB | | | | [address]indy Rodriges;[place] | | | | | | [address] | | | | + + + [...] | | | Fingerstick | performed at [facility];[address] | | LAB | | | | [address];[place], [place] | | | | | | [address] | | | | + + + [...] + + | Historically converted procedure from [facility] environment | EXTERNAL LAB | + + [...] | | | Basophils | performed at [facility];[address] | K/uL | LAB | | | | Cindy Rodriges;[place] | | | | | | [address] | | | | + + + [...] | | | | | performed at [facility], [address] | | | | | | [facility], | | | | | | [place] [address] | | | | + + + [...] EXTERNAL | | | | performed at [facility];[address] | | LAB | | | | [address];[place], [place] | | | | | | [address] | | | | + + + [...] EXTERNAL | | | | performed at [facility];[address] | | LAB | | | | [address];[place], [place] | | | | | | [address] | | | | + + + [...] | | | Fingerstick | performed at [facility];[address] | | LAB | | | | [address]indy Rodriges;[place] | | | | | | [address] | | | | + + + [...] + + | Historically converted procedure from [facility] Epic environment | EXTERNAL LAB | + [...] | | | Fingerstick | performed at [facility];[address] | | LAB | | | | [address]indy Rodriges;[place] | | | | | | [address] | | | | + + + [...] EXTERNAL | | | | performed at [facility];[address] | mmol/L | LAB | | | | [address]indy Rodriges;[place], [place] | | | | | | [address] | | | | + + + [...] EXTERNAL | | | | performed at [facility];[address] | | LAB | | | | [address]indy Rodrig[address];[place], [place] | | | | | | [address] | | | | + + + [...] 1940 | | | Performing Physician: NASH BENITEZ MD | | | | | | INDICATIONS Acute NE CONCLUSIONS 1. | | | This was [...] TR Vmax: | | | 3.63 m/s Transport Aide: Authenticated by: NASH BENITEZ MD | | | Report Date/Time: 12-27-2017 18:35:12 | | + + + + + | Procedure Note | + + | Akshat Olson Conversion - 12/28/2018 5:54 AM PDT Patient Name: Blake HUMPHREYS of | | : 1940 Performing Physician: NASH BENITEZ, | | MD INDICATIONS A | | yana LARIOS CONCLUSIONS [...] (A-L): 30.10 ml/m2LAAs A2C: 25.25 | | [id number] A-L A2C: 80.09 mlLALs A2C: 6.76 cmLAAs A4C: 17.87 [id number] A-L A4C: | | 42.38 mlLALs A4C: 6.39 cmTAPSE: 2.27 cmHR: 57.46 BPMAV maxP.37 mmHgAV | | meanP.40 mmHgAV Vmax: 1.61 m/Maurice Vmean: 1.22 m/Maurice VTI: 41.09 cmAVA Vmax: | | 2.19 cm2AVA (VTI): 1.92 xb1PUGF Vmax: 0.00 cm2/m2AVAI (VTI): 0.00 cm2/m2LVCI Dopp: | | 2.22 l/mbye4KGNU Dopp: 4.42 l/minHR: 55.98 BPMLVOT maxP.74 mmHgLVOT [...] maxP.80 mmHgTR Vmax: 3.63 m/s | | Transport Aide: Luciticated by: Haily HATCH Date/Time: 12-27-2017 18:35:12 | [...] |TR Vmax: 3.63 m/s | | | |Transport Aide: | |Authenticated by: NASH BENITEZ MD | |Report Date/Time: 12-27-2017 18:35:12 | [...] | | | Fingerstick | performed at [facility];[address] | | LAB | | | [address];[place] | | | | | | [address] | | | | + + + [...] + + | Historically converted procedure from [facility] Epic environment | EXTERNAL LAB | + [...] | | | Fingerstick | performed at [facility];[address] | | LAB | | | | [address];[place], [place] | | | | | | [address] | | | | + + + [...] NEGATIVE Testing | | | performed at [facility];[address] [place] [address];[place] [address] | | + + + + +---------+ [...] Olson Conversion - 12/28/2018 5:54 AM PDT YULIANA [...] | | diagnostic coronary angiogram by Dr. Benitez. Found to have 99 percent | | | stenosis in the venous graft to the obtuse marginal. I was asked | | | to do an intervention. Procedure details, alternatives, and | | | complications were explained for the patient. Patient finished her | | | diagnostic angiogram by Dr. Benitez through the right common femoral | | | artery through a 6-Burmese, 23 cm sheath. I walked into the room, | | | introduced myself to the patient. A new timeout was performed, and | | | through the right femoral sheath I advanced a 6-Burmese AL1 guide. | | | That was [...] and then I advanced a short BMW [place] wire to the | | | obtuse [...] | over the wire I advanced an [place] 6-Burmese retrieval device that | | | retrieved [...] was to do an attempt of a 6-Burmese Perclose device, so I | | | [...] hemodynamics and angiogram, please refer to Dr. Benitez's note. | | | CONTRAST USED: 95 [...] cardiac rehab as an outpatient.Read by YVETTE FELDER | | | 12/29/2017 05:33 P | [...] infarction. Underwent diagnostic coronary angiogram by Dr. Benitez. Found to | | have 99 percent stenosis in the venous graft to the obtuse marginal. I was | | asked to do an intervention. Procedure details, alternatives, and | | complications were explained for the patient. | | | | Patient finished her diagnostic angiogram by Dr. Benitez through the right | | common femoral artery through a 6-Burmese, 23 cm sheath. I walked into the | | room, introduced myself to the patient. A new timeout was performed, and | | through the right femoral sheath I advanced a 6-Burmese AL1 guide. That was | | advanced [...] and then I advanced a short BMW [place] wire to the | | obtuse marginal, [...] so over the wire I advanced an [place] 6-Burmese | | retrieval device that retrieved a [...] do an attempt | | of a 6-Burmese Perclose device, so I removed the sheath [...] hemodynamics and angiogram, please refer to Dr. Benitez's note. | | | | CONTRAST USED: [...] cardiac rehab as an outpatient.Read by YVETTE FELDER MD | | 12/29/2017 05:33 P | [...] Olson Conversion - 01/04/2019 3:44 PM PDT This Point of Care (POC) ultrasound | | image has been reviewed andinterpreted by the physician identified as the performing | | physician in theassociated interpretation and report. | | | + + POC STAN CG8, Arterial (12/27/2017 10:35 AM PDT) + [...] | | | POC | performed at [facility];[address] | g/dL | LAB | | | | [address];[place], [place] | | | | | | [address] | | | | + + + [...] | | | Clotting | performed at [facility];[address] | seconds | LAB | | | time, POC | [address];[place], [place] | | | | | | [address] | | | | + + + [...] | | | Fingerstick | performed at [facility];[address] | | LAB | | | | [address];[place] | | | | | | [address] | | | | + + + [...] | | | Clotting | performed at [facility];[address] | seconds | LAB | | | time, POC | [address]indy [address]es;[place] | | | | | | [address] | | | | + + + [...] | | | Clotting | performed at [facility];[address] | seconds | LAB | | | time, POC | [address]indy Rodriges;[place] | | | | | | [address] | | | | + + + [...] | | | Clotting | performed at [facility];[address] | seconds | LAB | | | time, POC | [address]indy Rodriges;[place] | | | | | | [address] | | | | + + + [...] attempt. The guidewire was passed and a 6-Burmese | | | introducer sheath was inserted into the right common femoral artery. | | | A 0.035-inch J-tip guidewire was used to advance a 5-Burmese FL4 via | | | the aortic root where it was used to perform selective angiography | | | of the cherokee left coronary circulation in multiple views in standard | | | fashion. Via guidewire exchange, a 5-Burmese FR4 catheter was | | | advanced to the aortic root, but failed to locate the ostium of the | | | cherokee right coronary artery, which is presumed to [...] J-tip guidewire | | | for a 5-Burmese ANAMARIA catheter, which was used to perform [...] | | separate report, dictated by Yvette Felder MD, for details regarding | | | [...] easily visible on | | | fluoroscopy. [place] TRIBE CORONARY ARTERIES: 1. Left Main: This is [...] | | and a large first septal construction trench digger branch. This septal construction trench digger | | | branch is normal. The [...] widely | | | patent. There are [id number] collaterals to the third obtuse | | [...] disease. | | | CONCLUSIONS: 1. Severe cherokee 3-vessel coronary artery disease | | | with an occluded left anterior descending artery and presumed total | | | occlusion of the proximal cherokee right coronary artery. 2. Patent | | [...] branch. | | | Read by NASH BENITEZ MD 12/27/2017 12:46 P Electronically | | | signed by Nash Benitez MD on 12/28/2017 6:17 PM | | [...] attempt. The guidewire was passed and a 6-Burmese introducer sheath was | | inserted into the right common femoral artery. A 0.035-inch J-tip | | guidewire was used to advance a 5-Burmese FL4 via the aortic root where it | | was used to perform selective angiography of the cherokee left coronary circulation | | in multiple views in standard fashion. Via guidewire exchange, a 5-Burmese | | FR4 catheter was advanced to the aortic root, but failed to locate the | | ostium of the cherokee right coronary artery, which is presumed to [...] 0.035-inch J-tip guidewire for a | | 5-Burmese ANAMARIA catheter, which was used to perform [...] see the separate report, dictated by Yvette Felder MD, for | | details regarding this. [...] visible on fluoroscopy. | | | | [place] TRIBE CORONARY ARTERIES: | | 1. Left Main: [...] and a large first septal | | construction trench digger branch. This septal construction trench digger branch is normal. The first | | [...] | and is widely patent. There are [id number] collaterals to the third | | obtuse [...] | | CONCLUSIONS: | | 1. Severe cherokee 3-vessel coronary artery disease with an occluded left | | anterior descending artery and presumed total occlusion of the proximal | | cherokee right coronary artery. | | 2. Patent [...] | | | | Read by NASH BENITEZ MD 12/27/2017 12:46 P | | | [...] | | | Patient | performed at [facility];[address] | | LAB | | | | [address];[place], [place] | | | | | | [address] | | | | + + + [...] | | | Fingerstick | performed at [facility];[address] | | LAB | | | | Cindy Rodriges;[place] | | | | | | [address] | | | | + + + [...] | | | | | | ACUTE NE CALLED NURSING | | | | | | UNITREAD BACK RESULTS | | | | | | VERIFIEDABEBEA B IN 4RP | | | | | | AT 0603 BY TDTesting | | | | | | performed at [facility];[address] | | | | | | [facility];[place], [place] | | | | | | [address] | | | | + + + [...] | | | Basophils | performed at [facility], [address] | K/uL | LAB | | | | [place], | | | | | | [place] [address] | | | | + + + [...] EXTERNAL | | | | performed at [facility], [address] | uIU/mL | LAB | | | | [place], | | | | | | [place] [address] | | | | + + + [...] EXTERNAL | | | | performed at [facility], [address] | | LAB | | | | [place], | | | | | | [place] [address] | | | | + + + [...] EXTERNAL | | | | performed at [facility], [address] | | LAB | | | | [place], | | | | | | [place] [address] | | | | + + + [...] | EXTERNAL | | | A1c | Czech Diabetes | | LAB | | | [...] | | | | | performed at [facility], [address] | | | | | | [facility], | | | | | | [place] [address] | | | | + + + [...] | | | Cholesterol | performed at [facility], [address] | | LAB | | | , | [place], | | | | | Calculated, | [place] [address] | | | | | External | [...] | | | | | | MDRD IDVA traceable | | | | | | equation.Testing | | | | | | performed at [facility], [address] | | | | | | [facility], | | | | | | [place] [address] | | | | + + + [...] + + | Historically converted procedure from [facility] Epic environment | EXTERNAL LAB | [...] | | | | | | ACUTE NE CALLED TO | | | | | | BANDAR Mccormick RN/4RP AT | | | | | | 0030 BY MWREAD BACK | | | | | | RESULTS VERIFIEDTesting | | | | | | performed at [facility];[address] | | | | | | [address];[place], [place] | | | | | | [address] | | | | + + + [...] | | | Patient | performed at [facility];[address] | | LAB | | | [address];[place], [place] | | | | | | [address] | | | | + + + [...] | | | Fingerstick | performed at [facility];[address] | | LAB | | | | Cindy Rodriges;[place], [place] | | | | | | [address] | | | | + + + [...] Procedure Note | + + | Wesley, Akshat Conversion - 12/28/2018 5:54 AM PDT HISTORY:Chest [...] | | | | | ZACKARY CALIX (178) on | | | | | | 12/27/2017 12:12:43 PM | | | | + + + + + + + + | Specimen | + + | | + + + + + | Narrative | Performed At | + + + | Historically converted procedure from [facility] environment | EXTERNAL LAB | + + [...] | | | | | | ACUTE NE CALLED | | | | | | RESULTSREAD BACK RESULTS | | | | | | VERIFIEDMEGAN W/4RP AT | | | | | | 1751 BY MAHTesting | | | | | | performed at [facility];[address] | | | | | | [facility];[place], [place] | | | | | | [address] | | | | + + + [...] | | | Patient | performed at [facility];[address] | | LAB | | | | [address];[place], [place] | | | | | | [address] | | | | + + + [...] | | | | | performed at [facility] | | | | | | [address];[place], [place] | | | | | | [address] | | | | + + + [...] | | | Fingerstick | performed at [facility];[address] | | LAB | | | | [address];[place], [place] | | | | | | [address] | | | | + + + [...]
--- OUTSIDE RECORDS SUMMARY | ~2019-05-09 | XMS | Encounter Summary ---
Demographics + + + | Address | [address] | | | [place] [address] | + + + | Home Phone | | + + + | Preferred Language | Unknown | + + + | Marital Status | | + + + | Holiness Affiliation | 1041 | + + + | Race | Unknown | + + + | Ethnic Group | Unknown | + + + Author + + + | Author | [facility] | | | and [place] | + [...] Team Providers + +------+ + | Care Installation Service Representative Name | Role | Phone | + +------+ + | Roxana Barajas PA-C | PCP | | + +------+ + Encounter Details +--------+ + + + + | Date | Type | Department | Care Team | Description | +--------+ + + + + | 03/27/ | Orders Only | [facility] | Arthur Childers | | | 2009 | | [facility] | MD Johnnie [address] | | | | | CLINICAL LABORATORY | [address] [place], [place] | | | | | [address] | [address] | | | | | [place], [place] | [phone] | | | | | [address] | | | | | | [phone] | | | +--------+ + + + [...] | | | | | [place] [address] | | | | | | [phone] | | | | | | | [...] EXTERNAL LAB | | Testing performed at [address];[place] [address] MRSA PCR | | | NEGATIVE Testing performed at | | | [address];[place] [address] | | + + + + +---------+ + + | Performing | Address | City/State/Zipcode | Phone Number | | Organization | | | | + +---------+ + + | EXTERNAL LAB | | | | + +---------+ + + documented in this encounter Visit Diagnoses Not on filedocumented in this encounter"
--- OUTSIDE RECORDS SUMMARY | ~2019-05-09 | XMS | Clinical Summary ---
Demographics + + + | Address | [address] | | | [place] [address] | + + + | Home Phone | | + + + | Preferred Language | Unknown | + + + | Marital Status | | + + + | Islam Affiliation | 1041 | + + + | Race | Unknown | + + + | Ethnic Group | Unknown | + + + Author + + + | Author | [facility] (Historical as of | | | 12-31-18) | + + + | Organization | [facility] (Historical as of | | | 12-31-18) [...] Team Providers + +------+ + | Care Computer Trainer Name | Role | Phone | + [...] | | | | | type ([facility]) | | | | | | | [...] | | | | | type ([facility]) | | | | | | | [...] Overview: intial AICD 2004, generator change 03/27/11, [place] | | Scientific Telogen E110, s# [id number]; RV Lead - Guidant 0184, s# | | [id number] (08/15/03); RA Lead - Guidant Fineline II EZ Sterox 4469, | | s# [id number] (08/15/03) | + + + + + | Ventricular tachycardia, paroxysmal (HCC) | 05/17/2003 | + + + + + | Overview: with Syncope, + EPS for inducible VT - 08/14/03 | + + + + + | 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 | + + + | Coronary artery disease involving [place] ore[place] coronary artery | | + + + [...] + + + + + | Overview: [employer] | | Telogen model E110, serial number [id number] | + + Family History + + [...] | Coronary Artery | Mother | | ND | | Disease | | | | [...] Corey | [place] | | 08/30/ | [id number] | | -12/27/2017Implanted: | | ry | SCIENTIFIC | | 2019 | [id number] | | 12/27/2017 by Aquiles Morris, | | | LARRY - BSCI | | | 50 / | | MD (Quantity not on file) | | | | | | /[id number] | | | | | | | | 257 | + +-------+--------+ +--------+--------+--------+ | Synergy 3.5 X | Stent | Corey | [place] | | 08/30/ | [id number] | | -12/27/2017Implanted: | | ry | SCIENTIFIC | | 2018 | [id number] | | 12/27/2017 by Aquiles Morris, | | | LARRY - BSCI | | | 50 / | | MD (Quantity not on file) | | | | | | /[id number] | | | | | | | [...] +------+-------+ + | MEDICARE | MEDICA | [id number] | | | [address] | | | RE | | | | [place], [place] [address] | | | IP-OP | | | | | + +--------+ +------+-------+ + | MEDICAID | MEDICA | [id number] | | | [address] | | | ID | | | | [place], [place] | | | [place] | | | | [address] | + +--------+ +------+-------+ + | /[facility] | YELLOW | [id number] | | | | | PLANS | [...] | Self | [birth year] Home: | [address] | | | al/Fam | | 1941 | [phone] [place] | | | [place]on | | | [address] | [phone] | + +--------+ +--------+ + +
--- OUTSIDE RECORDS SUMMARY | ~2019-05-09 | XMS | Encounter Summary ---
Demographics + + + | Address | [address] | | | [place] [address] | + + + | Home Phone | | + + + | Preferred Language | Unknown | + + + | Marital Status | | + + + | Zoroastrianism Affiliation | 1041 | + + + | Race | Unknown | + + + | Ethnic Group | Unknown | + + + Author + + + | Author | [facility] | | | and [place] | + + + | Organization | [facility] | | | [...] Team Providers + +------+ + | Care Tie Puller Name | Role | Phone | + +------+ + | Roxana Barajas PA-C | PCP | | + +------+ + Encounter Details +--------+ + + + + | Date | Type | Department | Care Team | Description | +--------+ + + + + | 02/26/ | Orders Only | [facility] | Tres Hewitt Shar[place], | | | 2014 | | [place] | [address] | | | | | [address] | [place] [address] | | | | | [facility] [place] | [phone] | | | | | [address] | | | | | | [phone] | | | +--------+ + + + [...] [place] | | | | | | [address] | | | | | | | [...] | | | | | [place] [address] | | | | | | [phone] | | | | | | | [...] MV A Jarrod: 1.29 m/s MV Dec Dougherty: 3.15 m/s2 MV | | | DecT: [...] TR Vmax: 2.95 m/s | | | Aging Room Operator: JOSÉ ANTONIO Authenticated by: Tres Hewitt MD, FACC, FACP, | | | FASIVAN Report Date/Time: 02-28-2015 18:06:49 | | + + + + + | Procedure Note | + + | Wesley, Rad Conversion - 01/05/2019 11:11 PM PDT Patient Name: Blake HUMPHREYS of | | : 1940 Performing Physician: Tres [...] cmLVPWd: 1.26 cmLVOT Area: | | 3.40 [id number] Diam: 2.08 cm%FS: 17.35 %EF(Teich): 35.72 %ESV(Teich): [...] (A-L): 24.59 ml/m2LAAs | | A2C: 19.49 [id number] A-L A2C: 63.19 mlLALs A2C: 5.10 cmLAAs A4C: 15.24 [id number] | | A-L A4C: 35.39 mlLALs A4C: 5.57 cmRAAs: 15.89 [id number] A-L: 38.86 mlRAESV MOD: | | 40.41 mlRALs: 5.51 cmAo Diam: 2.92 cmAo/LA: 0.62LA Diam: 4.69 cmLA/Ao: 1.60AV | | maxP.55 mmHgAV meanP.97 mmHgAV Vmax: 1.54 m/Maurice Vmean: 1.17 m/Maurice VTI: | | 35.32 cmAVA Vmax: 2.32 cm2AVA (VTI): 2.20 [id number] (Vmax): 0.00 cm2/m2AVAI (VTI): | | 0.00 cm2/m2LVOT maxP.45 mmHgLVOT meanP.42 mmHgLVSI Dopp: 38.73 | | ml/m2LVSV Dopp: 77.85 mlLVOT Vmax: 1.05 m/sLVOT Vmean: 0.74 m/sLVOT VTI: 22.88 | | cmMV A Jarrod: 1.29 m/sMV Dec Dougherty: 3.15 m/s2MV DecT: 273.13 msMV E Jarrod: 0.86 | | m/sMV E/A Ratio: 0.66MV PHT: 79.21 msMVA By PHT: 2.77 bl8Qmgmim e': 0.03 | | m/sSeptal E/e': 22.10Lateral e': 0.06 m/sLateral E/e': 12.90PAEDP: 9.92 | | mmHgPRend P.92 mmHgPRend Vmax: 1.10 m/sPV maxP.12 mmHgPV Vmax: 1.12 | | m/sRAP: 5 mmHgRVSP: 39.84 mmHgTR maxP.84 mmHgTR Vmax: 2.95 m/s Aging Room Operator: | | RKAuthenticated by: Tres Hewitt MD, [...] A Jarrod: 1.29 m/s | |MV Dec Dougherty: 3.15 m/s2 | |MV DecT: 273.13 ms [...] |TR Vmax: 2.95 m/s | | | |Aging Room Operator: RK | |Authenticated by: Tres Hewitt MD, [...]
--- OUTSIDE RECORDS SUMMARY | ~2019-05-09 | XMS | Clinical Summary ---
Demographics + + + | Address | [address] | | | [place] [address] | + + + | Home Phone [...] + + | Author | [facility] | | | and [place] | + + + | Organization | [facility] | | | and [...] Team Providers + +------+ + | Care Duct Maker Name | Role | Phone | [...] (LIPITOR) 40 mg | | | | /20 | | e | | tablet | | | | 18 | | | + + + +---------+------+------+-------+ | clopidogrel | Take 75 mg by mouth. | | 0 | 08/3 | | Activ | | (PLAVIX) 75 mg | | | | /20 | | e | | tablet | | | | 18 | | | + + + +---------+------+------+-------+ | lisinopril | Take 1 tablet by | | 0 | 03/18 | 03/18 | Expir | | (PRINIVIL, ZESTRIL) | mouth daily. | | | 02/03 | 02/03 | ed | | 10 mg tablet | | | | 18 | 19 | | + + + +---------+------+------+-------+ Active Problems + + + | Problem | Noted Date | + + + | Coronary artery disease involving [place] coronary artery | 12/13/2018 | + + [...] + + + + + | Overview: karinaial AICD 2003, generator change 03/27/11, [place] | | Scientific Telogen E110, s# [id number]; RV Lead - Guidant 0184, s# | | [id number] (08/15/03); RA Lead - Guidant Fineline II EZ Sterox 4469, | | s# [id number] (08/15/03) | + + + + + [...] obstructive | | 2019 | Visit | | [...] health | +--------+ + + + + from [...] | Coronary artery | Mother | | [place] | | disease | | | | [...] | Respiratory Rate | 18 | 07/18/2018 10:47 AM | | | | | PST | [...] | 104.3 kg (230 lb) | 12/16/2018 9:29 AM | | | | | PDT | | + + + + + | Height | 157.5 cm (5' 2") | 12/16/2018 9:29 AM | | | | | PDT | | + + + + + | Body Mass Index | 42.07 | 12/16/2018 9:29 AM | | | | | PDT [...] [place] | | | | | | [address] | | | | | | | [...] | | | | | [place] [address] | | | | | | [phone] | | | | | | | [...] | | | | | Pneumococcal 65+ (1 | 4 | | | | of 2 - [...] | + +-------+------+ +--------+--------+--------+ | Implant Id: [id number] - Synergy | Stent | | [place] | | 08/30/ | [id number] | | 3.5 X -12/27/2017Implanted: | | | SCIENTIFIC | | 2018 | [id number] | | 12/27/2017 by Aquiles Morris, | | | LARRY - BSCI | | | 50 / | | MD (Quantity not on file) | | | | | | /[id number] | | | | | | | | 257 | + +-------+------+ +--------+--------+--------+ | Implant Id: [id number] - Synergy | Stent | | [place] | | 08/30/ | [id number] | | 3.5 X -12/27/2017Implanted: | | | SCIENTIFIC | | 2019 | [id number] | | 12/27/2017 by Aquiles Morris, | | | LARRY - BSCI | | | 50 / | | MD (Quantity not on file) | | | | | | /[id number] | | | | | | | [...] Months Results Device Interrogation - Remote (03/13/2019 8:00 AM PDT) + + + | Narrative | Performed At | + + + | Girish Sarmiento | [facility] | | ONUR Neal 03/13/2019 13:16ICD REMOTE INTERROGATION REPORT | | | Name: Yuliana Galindo PCP: Roxana Barajas PA-C : 1940MRN: | | | [id number] Primary cardiology provider: Tres Hewitt Primary | | | electrophysiology provider: Erin Caba Device cake icer: | | | Tyto Device type: Dual chamber Battery Longevity: 3 [...] +--------+ +---------+--------+ | MEDICARE | MEDICA | [id number] | 11/15/19 | [phone] | | Medica | | | RE | | 04-Pre | 5 | | re | | | PART A | | sent | | | | | | AND B | | | | | | + +--------+ +--------+ +---------+--------+ | MEDICARE | MEDICA | [id number] | 11/15/19 | [phone] | | Medica | | | RE | | 04-Pre | 5 | | re | | | PART A | | sent | | | | | | AND B | | | | | | + +--------+ +--------+ +---------+--------+ | [facility] | IHS | [id number] | 05/17/19 | | | Indemn | | SERVICE | YELLOW | | 04-Pre | | | ity | | | HAWK | | sent | | | | + +--------+ +--------+ +---------+--------+ | [facility] | IHS | [phone] | 05/18/19 | | | Indemn | | SERVICE | YELLOW | | 13-Pre | | | ity | | | HAWK | | sent | | | | + +--------+ +--------+ +---------+--------+ | MEDICAID [place] | MEDICA | [id number] | | [phone] | | Medica | [...] Person | Self | [birth year] | | [address] | | | al/Fam | | 1941 | [phone] | [place], [place] | | | [place] | | | [address] (Home) | [address] | + +--------+ +--------+ + + | Yuliana Galindo | Person | Self | [birth year] | | [address] | | | al/Fam | | 1941 | [phone] | [place], [place] | | | [place] | | | [address] (Home) | [address] | + +--------+ +--------+ + + Advance Directives + + + + + | Type | Date Recorded | Patient | Explanation | | | | Desk Officer | | + + + + + | Power of | | | | | Gin Inspector | | | | + + + [...]
--- OUTSIDE RECORDS SUMMARY | ~2019-05-09 | XMS | Encounter Summary ---
Demographics + + + | Address | [address] | | | [place] [address] | + + + | Home Phone | | + + + | Preferred Language | Unknown | + + + | Marital Status | | + + + | Congregation Affiliation | 1041 | + + + | Race | Unknown | + + + | Ethnic Group | Unknown | + + + Author + + + | Author | [facility] | | | and [place] | + + + | Organization | [facility] | | | [...] Team Providers + +------+ + | Care Ethical Hacker Name | Role | Phone | + +------+ + | Jasmin Stephens MD | PCP | | + +------+ + Encounter Details +--------+ + + + + | Date | Type | Department | Care Team | Description | +--------+ + + + + | 04/16/ | Hospital | [facility] | Conversion | Diagnosis unknown | | 2016 | Encounter | CONVERSION [address] | Transaction, | | | | | [address] | Provider Unknown | | | | | [facility] [place] | [phone] | | | | | [address] | | | | | | [phone] | | | +--------+ + + + [...] [address] | | | | | | [facility] | | | | | | [place] | | | | | | [address] | | | | | | | [...] E | | | | | | [place] [address] | | | | | | [phone] | | | | | | | [...] + + | Akshat Olson Conversion - 12/29/2018 2:31 PM PDT This is [...]
--- OUTSIDE RECORDS SUMMARY | ~2019-05-09 | XMS | Clinical Summary ---
Demographics + + + | Address | [address] | | | [place] [address] | + + + | Home Phone | | + + + | Preferred Language | Unknown | + + + | Marital Status | | + + + | Taoism Affiliation | 1041 | + + + | Race | Unknown | + + + | Ethnic Group | Unknown | + + + Author + + + | Author | [facility] (Historical as of | | | 12-31-18) | + + + | Organization | [facility] (Historical as of | | | 12-31-18) [...] Team Providers + +------+ + | Care Continuous Miner Operator Helper Name | Role | Phone [...] | | | | type ([facility]) | | | | | [...] | | | | type ([facility]) | | | | | [...] Overview: intial AICD 2004, generator change 03/27/11, [place] | | Scientific Telogen E110, s# [id number]; RV Lead - Guidant 0184, s# | | [id number] (08/15/03); RA Lead - Guidant Fineline II EZ Sterox 4469, | | s# [id number] (08/15/03) | + + + + + | Ventricular tachycardia, paroxysmal (HCC) | 05/17/2003 | + + + + + | Overview: with Syncope, + EPS for inducible VT - 08/14/03 | + + + + + | 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 | + + + | Coronary artery disease involving [place] coronary artery | | + + + [...] + + + + + | Overview: [facility] | | Telogen model E110, serial number [id number] | + + Family History + + [...] | Coronary Artery | Mother | | [place] | | Disease | | | | [...] Corey | [place] | | 08/30/ | [id number] | | -12/27/2017Implanted: | | ry | SCIENTIFIC | | 2019 | [id number] | | 12/27/2017 by Aquiles Morris, | | | LARRY - BSCI | | | 50 / | | MD (Quantity not on file) | | | | | | /[id number] | | | | | | | | 257 | + +-------+--------+ +--------+--------+--------+ | Synergy 3.5 X | Stent | Corey | [place] | | 08/30/ | [id number] | | -12/27/2017Implanted: | | ry | SCIENTIFIC | | 2018 | [id number] | | 12/27/2017 by Aquiles Morris, | | | LARRY - BSCI | | | 50 / | | MD (Quantity not on file) | | | | | | /[id number] | | | | | | | [...] +------+-------+ + | MEDICARE | MEDICA | [id number] | | | [address] | | | RE | | | | [place], [place] [address] | | | IP-OP | | | | | + +--------+ +------+-------+ + | MEDICAID | MEDICA | [id number] | | | [address] | | | ID | | | | [place], [place] | | | [place] | | | | [address] | + +--------+ +------+-------+ + | /[facility] | YELLOW | [id number] | | | | | PLANS | [...] | Self | [birth year] | Home: | [address] | | | al/Fam | | 1941 | [phone] [place] | | | [place] | | | [phone] | [address] | + +--------+ +--------+ + +
--- OUTSIDE RECORDS SUMMARY | ~2019-05-09 | XMS | Encounter Summary ---
Demographics + + + | Address | [address] | | | [place] [address] | + + + | Home Phone [...] Team Providers + +------+ + | Care Delivery Department Supervisor Name | Role | Phone | + +------+ + PCP | Unavailable | + +------+ + Encounter Details +--------+ + + + + | Date | Type | Department | Care Team | Description | +--------+ + + + + | 08/13/ | Hospital | [facility] | Harsha Avilez, | | | 2003 - | Encounter | [facility] | [address] | | | | | CARDIAC TELEMETRY | [address] [place] | | | 08/15/ | | [address] | [place] [address] | | | 2003 | | [place] | [phone] | | | | | [address] | | | | | | [phone] | | | +--------+ + + + [...] [place] | | | | | | [address] | | | | | | | [...] | | | | | [place] [address] | | | | | | [phone] | | | | | | | | +--------+ + + + + | 09/10/ | Procedure | Cardiology | | | | 2019 | visit | | | | +--------+ + + + + documented as of this encounter Visit Diagnoses Not on filedocumented in this encounter"
--- OUTSIDE RECORDS SUMMARY | ~2019-05-09 | XMS | Encounter Summary ---
Demographics + + + | Address | [address] | | | [place] [address] | + + + | Home Phone | | + + + | Preferred Language | Unknown | + + + | Marital Status | | + + + | Christianity Affiliation | 1041 | + + + | Race | Unknown | + + + | Ethnic Group | Unknown | + + + Author + + + | Author | [facility] | | | and [place] | + + + | Organization | [facility] | | | [...] Team Providers + +------+ + | Care Extrusion Manager Name | Role | Phone | + +------+ + | Pcp, Prov Inactive | PCP | | + +------+ + Encounter Details +--------+ + + + + | Date | Type | Department | Care Team | Description | +--------+ + + + + | 12/26/ | Hospital | [facility] | Pasha Buck | Pain; S/P drug | | 2018 - | Encounter | [facility] | MD [address] | eluting coronary | | | | CARE FLOOR [address] [place], [place] | stent placement; | | 12/31/ | | [address] | [id number] | NSTEMI (non-ST | | 2018 | | [place], [place] | | elevated myocardial | | | | [address] | | infarction) ([facility]) | | | | [phone] | | | +--------+ + + + [...] 1609 Date of Service: 12/31/17911 Status: Signed Advanced Research Programs Director: Francesco Edmonds MD (Physician) Patient: Yuliana Humphreys : 1940 Date of Admission: 12/26/2017 Date of Discharge: 12/31/2017 Treatment Team: Consulting Physician: Yvette Felder MD Admitting Provider: Pasha Buck MD Discharging [...] was walking. She wa [facility] to possible NSTEMI. She underwent [...] Discharge Information: Follow up: Tres Beltran [place] [facility] [place] [address] Schedule an appointment as soon as possible for a visit in 10 days hospital follow up. NSTEMI Roxana Barajas PA-C [address] [place] [address] Schedule an appointment as soon as possible [...] 12/31/171702 Date of Service: 12/31/171701 Status: Signed Advanced Research Programs Director: Pamela Wagner RN (Registered Nurse) Patient and daughter received discharge instructions, and Rx. All questions answered, and a ll belongings sent with patient, belongings check list is complete. All patient VS are stabl e, patient is afebrile and denies SOB, CP or N/V. PIV x 2 removed, home oxygen with patient. Patient wheeled out in wheelchair by [facility] escort to personal vehicle, discharged home wit h daughter. Pamela Wagner RN onver darnell Transaction, Provider Unknown - 12/31/2017 10:14 AM PDT Case Management by Wandy Gong RN at 12/31/17 1014 Author: Wandy Gong RN Service: (none) Author Type: Registered Nurse Filed: 12/31/17 1054 Date of Service: 12/31/17 1014 Status: Addendum Advanced Research Programs Director: Wandy Gong RN (Registered Nurse) Related Notes: Original Note by Wandy Gong RN (Registered Nurse) filed at 12/31/17 101 5 Pt to d/c home today. Pt will return home with caregivers/family. Family to transport Per [facility], they will deliver a portable tank to room today. Per [facility], they will accept pt Wednesday. Faxed AVS Notified Kell with [facility] of d/c plan, no questions Irta onver darnell Transaction, Provider Unknown - 12/31/2017 5:39 AM PDT Nurse Progress Note by Aishwarya Marr RN at 12/31/17 0539 Author: Aishwarya Marr RN Service: (none) Author Type: Registered Nurse Filed: 12/31/17 0541 Date of Service: 12/31/17 0539 Status: Signed Advanced Research Programs Director: Aishwarya Marr RN (Registered Nurse) Pt rested [...] 12/30/171807 Date of Service: 12/30/171805 Status: Signed Advanced Research Programs Director: Pamela Wagner RN (Registered Nurse) Patient had [...] 12/30/171851 Date of Service: 12/30/171728 Status: Signed Advanced Research Programs Director: Parmjit Hernandez PT (Physical Therapist) PHYSICAL THERAPY TREATMENT NOTE PT Received On: 12/30/17 Reason for Treatment: Deconditioning Requires PT Follow Up: PT tech Follow up PT Only?: No Assistance Required: 1 person Charter Representative Needed: No Recommendations: Home Assist, PT PT [...] 1547 Date of Service: 12/30/171543 Status: Signed Advanced Research Programs Director: Francesco Edmonds MD (Physician) [facility] Service: Hospitalist Progress Note Pt: Yuliana Humphreys AGE/SEX: 77 y.o. female ROOM: [address] [place] [address] : 1940 PCP: Roxana Barajas ADMIT DATE: [...] (2003), HTN, current smoker, who presented to [facility] in [facility] to midsternal chest pain that started when she went for a walk. The pain radiated to her L shoulder and she became nauseous and diaphoretic. The patient had similar episodes when she had her CABG in 1994. EKG was done at [place] which revealed non-specific ST-T changes (no previous EKG to compare). She had borderline troponin elevation and was transferred to [facility] for cardiology services on heparin gtt. The [...] the ICU. ICU Timeline: 12/27- transferred from cath lab tech to ICU for decreased LOC following sedation [...] Principal Problem: NSTEMI (non-ST elevated myocardial infarction) ([facility]) Active Problems: S/P CABG x 4 Ischemic dilated cardiomyopathy ([facility]) Cardiac defibrillator in situ Hypertension Morbid obesity ([facility]) Tobacco use disorder Acute metabolic encephalopathy Acute respiratory failure with hypoxia and hypercapnia ([facility]) Pulmonary edema cardiac cause ([facility]) ASSESSMENT & PLAN NSTEMI - patient underwent [...] and managing patient and counseling/coordination. Dictation software, MDdatacor, used which may contain error for similar [...] Date of Service: 12/30/17 1210 Status: Addendum Advanced Research Programs Director: Wandy Gong RN (Registered Nurse) Related Notes: Original Note by Wandy Gong RN (Registered Nurse) filed at 12/30/17 122 3 Pt needing home O2, she has selected [facility]. Notified [facility], radha gardner will start process, faxed script. PT recommending HH services, pt wants [facility]. Referral sent. F2F referral in AVS Tentative d/c is Wednesday Tc to BASHIR Castorena with [facility] re d/c plan, Rita onver darnell Transaction, Provider Unknown - 12/30/2017 11:26 AM PDT Progress Notes by Dasha Yun CRT at 12/30/17 1126 Author: Dasha Yun CRT Service: (none) Author Type: Certified Respiratory The rapist Filed: 12/30/17 112 Date of Service: 12/30/17 112 Status: Signed Advanced Research Programs Director: Dasha Yun CRT (Certified Respiratory Therapist) [facility] Department of Respiratory Long-Term Oxygen Evaluation [...] 12/30/17431 Date of Service: 12/30/17431 Status: Signed Advanced Research Programs Director: Merlene Vieira RN (Registered Nurse) Chart check complete. onver darnell Transaction, Provider Unknown - 12/29/2017 5:39 PM PDT Nurse Progress Note by Pamela Wagner RN at 12/29/171738 Author: Pamela Wagner RN Service: (none) Author Type: Registered Nurse Filed: 12/29/171746 Date of Service: 12/29/171738 Status: Addendum Advanced Research Programs Director: Pamela Wagner RN (Registered Nurse) Related Notes: [...] Service: (none) Author Type: Physician Filed: 12/30/17 1623 Date of Service: 12/29/171705 Status: Signed Advanced Research Programs Director: Tres Beltran MD (Physician) Related Notes: Original Note by Tres Beltran MD (Physician) filed at 12/29/17 1712 [facility] Service: Cardiology Progress Note SUBJECTIVE Currently [...] Mild LV dysfunction, ejection fraction 40-45%. 8. Gxxtmujs-mj-zzxccv pulmonary hypertension without significant valvular disease. 9. Obesity. PLAN: Continue with her current regimen, including aspirin and Plavix, aggressive pulmonar y toilet, and aerosols for her COPD. Careful diuresis is needed. TRES BELTRAN MD 12/29/2017 onversion Transacti on, Provider Unknown - 12/29/2017 12:37 PM PDTFormatting of this note might be different fro m the original. Case Management by Wandy Gong RN at 12/29/17 8491 Author: Wandy Gong RN Service: (none) Author Type: Registered Nurse Filed: 12/29/17 0114 Date of Service: 12/29/17 6820 Status: Signed Advanced Research Programs Director: Wandy Gong RN (Registered Nurse) Met with pt and daughter Cierra re d/ c planning. Pt resides in [place], uses [employer] and has a state paid caregiver. Pt states she plans to return home and no needs are expressed at thi s time. [facility] [phone] re d/c plan. Family to transport back [facility] Francesco Hardy i, MD - 12/29/2017 12:37 PM PDTFormatting of this note might be different from the o riginal. Progress Notes by Francesco Edmonds MD at 12/29/17 1237 Author: Francesco Edomnds MD Service: Hospitalist Author Type: Physician Filed: 12/29/17 1244 Date of Service: 12/29/171236 Status: Signed Advanced Research Programs Director: Francesco Edmonds MD (Physician) [facility] Service: Hospitalist Progress Note Pt: Yuliana Humphreys AGE/SEX: 77 y.o. female ROOM: [address] [place] [address] : 1940 PCP: Roxana Barajas ADMIT DATE: [...] (2003), HTN, current smoker, who presented to [facility] in [facility] to midsternal chest pain that started when she went for a walk. The pain radiated to her L shoulder and she became nauseous and diaphoretic. The patient had similar episodes when she had her CABG in 1994. EKG was done at [place] which revealed non-specific ST-T changes (no previous EKG to compare). She had borderline troponin elevation and was transferred to [facility] for cardiology services on heparin gtt. The [...] the ICU. ICU Timeline: 12/27- transferred from cath lab tech to ICU for decreased LOC following sedation [...] Component Value Units Date/Time MRSA by PCR [[id number]] Collected: 12/27/17 1133 Specimen: Nasopharyngeal from Nares(Nose) [...] Principal Problem: NSTEMI (non-ST elevated myocardial infarction) ([facility]) Active Problems: S/P CABG x 4 Ischemic dilated cardiomyopathy ([facility]) Cardiac defibrillator in situ Hypertension Morbid obesity ([facility]) Tobacco use disorder Acute metabolic encephalopathy Acute respiratory failure with hypoxia and hypercapnia ([facility]) Pulmonary edema cardiac cause ([facility]) ASSESSMENT & PLAN NSTEMI - patient underwent [...] and managing patient and counseling/coordination. Dictation software, MDdatacor, used which may contain error for similar [...] 12/29/17650 Date of Service: 12/29/17650 Status: Signed Advanced Research Programs Director: Merlene Vieira RN (Registered Nurse) No acute events overnight, VSS, no c/o chest pain. onver darnell Transaction, Provider Unknown - 12/29/2017 3:24 AM PDT Nurse Progress Note by Merlene Vieira RN at 12/29/17323 Author: Merlene Vieira RN Service: (none) Author Type: Registered Nurse Filed: 12/29/175 Date of Service: 12/29/17323 Status: Signed Advanced Research Programs Director: Merlene Vieira RN (Registered Nurse) 12hr chart check complete. onver darnell Transaction, Provider Unknown - 12/28/2017 5:48 PM PDT Nurse Progress Note by Johnson Ames RN at 12/28/171747 Author: Johnson Ames RN Service: (none) Author Type: Registered Nurse Filed: 12/28/17 175 Date of Service: 12/28/171747 Status: Signed Advanced Research Programs Director: Johnson Ames RN (Registered Nurse) PT transfer to [facility] at 1500 in stable condition. [...] Author: ESTER Rice Service: (none) Author Type: Instructor Psychiatric Aide Filed: 12/28/17 1541 Date of Service: 12/28/17 153 Status: Signed Advanced Research Programs Director: ESTER Rice (Instructor Psychiatric Aide) 12/28/17 1521 Discharge Planning Evaluation Admitting Diagnosis [...] [place] Relationship to Patient Caregiver Phone number [phone] Mental Status Unable to answer questions (Pt was asleep) Power of Field Court Researcher No Resources Financial concerns No Transportation issues No (Pt can drive, but not often. However, her caregiver and daughter will pick pt up from the hospital. ) Patient/Family concerns [facility] Anticipated Disposition Facility Type Home Met with Yuliana Humphreys and discussed discharge planning. However, pt was asleep sp assessm ent was done over the phone with pt's daughter, Cierra Higgins ([phone]). Pt is a 77 y .o., female who resides with her daughter (Cierra), Cierra's boyfriend, and Cierra's 23 year old son. Pt resides at: [address] [place] [address], [place], [place] [facility]. Pt does not have to w alk up any steps to get into the house, there is a ramp. Pt's daughter reports good family and friend support. Pt's daughter states that she helps her mom with cooking, cleaning, etc. Patient's PCP is: Duc Person at [facility] Pt's daughter states that she is independent with mobility. However, if pt is walking a dis tance or traveling, she will use a cane. Pt's daughter states that pt does not use home oxygen. Pt has not received previous outpatient services. Pt is not currently on any blood thinners. Patient's insurance: Medicaid, Medicare, and [facility] insurance Coverage concerns: No Medication coverage/concerns: No Rx Bedside Delivery: Pt [facility] utilized / needed: Pt receives caregiving hours through [facility] in [place]. Pt's telehealth case manager is Melly Harris [phone]. Pt's ca regiver is Martha Lan ([phone]). Pt's daughter states that she gets around 18 hour s a week of caregiving services. Assistance in transportation: Pt can drive a small amount. However, her caregiver helps wit h transportation Identification of any specific education / training: TBD Barriers to Discharge / Alternative housing needed: TBD Anticipated DCP: Home Pt does not have an Advanced Directive or a Power of Field Court Researcher. Paperwork should be given to family (pt was transferred from ICU prior to receiving paperwork). ESTER Rice onver darnell Transaction, Provider Unknown - 12/28/2017 2:16 PM PDT Nurse Progress Note by Johnson Ames RN at 12/28/17 7450 Author: Johnson Ames RN Service: (none) Author Type: Registered Nurse Filed: 12/28/17 1416 Date of Service: 12/28/17 1416 Status: Signed Advanced Research Programs Director: Johnson Ames, RN (Registered Nurse) Report received from Leticia BRAZING MACHINE SETTER. PT transferred to [facility] in stable condition. onver darnell Transaction, Provider Unknown - 12/28/2017 12:23 PM PDT Case Management by ESTER Cota at 12/28/17 1223 Author: ESTER Cota Service: (none) Author Type: Instructor Psychiatric Aide Filed: 12/28/17 1225 Date of Service: 12/28/17 1223 Status: Signed Advanced Research Programs Director: ESTER Cota (Instructor Psychiatric Aide) [facility]. Informed that pt has not yet been assessed. She is reque sting that the discharging CM call her to notify of any d/c needs and give an update regardi ng d/c plan. Kell- [phone] onver darnell Transaction, Provider Unknown - 12/28/2017 10:51 AM PDT Case Management by ESTER Rice at 12/28/17 1051 Author: ESTER Rice Service: (none) Author Type: Instructor Psychiatric Aide Filed: 12/28/17 1058 Date of Service: 12/28/17 1051 Status: Signed Advanced Research Programs Director: ESTER Rice (Instructor Psychiatric Aide) CM attended morning rounds. Pt is in [...] at 12/28/17405 Author: Sherly Coppola DO Service: Radio Frequency Technician Author Type: Physician Filed: 12/28/17 0624 Date of Service: 12/28/17405 Status: Signed Advanced Research Programs Director: Sherly oCppola DO (Physician) [facility] Service: Radio Frequency Technician Progress Note Yuliana Humphreys 77 y.o. [...] (2005), HTN, current smoker, who presented to [facility] in [place] due to midsternal chest pain that started when she went for a walk. The pain radiated to her L shou lder and she became nauseous and diaphoretic. The patient had similar episodes when she had her CABG in 1994. EKG was done at [place] which revealed non-specific ST-T changes (no pre vious EKG to compare). She had borderline troponin elevation and was transferred to [facility] for cardiology services on heparin gtt. The [...] the ICU. ICU Timeline: 12/27- transferred from cath lab tech to ICU for decreased LOC following sedation [...] Principal Problem: NSTEMI (non-ST elevated myocardial infarction) ([facility]) Active Problems: S/P CABG x 4 Ischemic [...] Lasix post proc edure. Current smoker - chromosomal disorders counselor regarding smoking cessation COPD/asthma: cont scheduled [...] 12/27/171738 Date of Service: 12/27/171738 Status: Signed Advanced Research Programs Director: Melyssa Harley RN (Registered Nurse) End of shift chart review completed onver darnell Transaction, Provider Unknown - 12/27/2017 5:00 PM PDT Progress Notes by Melyssa Harley RN at 12/27/17 1700 Author: Melyssa Harley RN Service: (none) Author Type: Registered Nurse Filed: 12/27/17 2865 Date of Service: 12/27/171699 Status: Signed Advanced Research Programs Director: Melyssa Harley RN (Registered Nurse) Pt unable [...] Date of Service: 12/27/17 1635 Status: Addendum Advanced Research Programs Director: Herbert Mayorga RRT (Registered Respiratory Therapist) Related [...] Author: ESTER Cota Service: (none) Author Type: Instructor Psychiatric Aide Filed: 12/27/17 1417 Date of Service: 12/27/17 1415 Status: Signed Advanced Research Programs Director: ESTER Cota (Instructor Psychiatric Aide) Received message to call Kell Amaro to discuss d/c planning. Pt was just admitt ed to the ICU. I plan to complete an assessment either today or tomorrow. Called Kell griffin and left a VM requesting a return call. Kell- [phone] onver darnell Transaction, Provider Unknown - 12/27/2017 11:23 AM PDT Case Management by Wandy Gong RN at 12/27/17 1123 Author: Wandy Gong RN Service: (none) Author Type: Registered Nurse Filed: 12/27/17 1123 Date of Service: 12/27/17 1123 Status: Signed Advanced Research Programs Director: Wandy Gong RN (Registered Nurse) 12/27/17 1100 [...] Date of Service: 12/27/17 1115 Status: Signed Advanced Research Programs Director: Melyssa Harley RN (Registered Nurse) Per Dr. Israel Griffin tko NS due to fluid overload onver darnell Transaction, Provider Unknown - 12/27/2017 11:01 AM PDT Progress Notes by Melyssa Harley RN at 12/27/17 110 Author: Melyssa Harley RN Service: (none) Author Type: Registered Nurse Filed: 12/27/17 1132 Date of Service: 12/27/17 110 Status: Signed Advanced Research Programs Director: Melyssa Harley RN (Registered Nurse) Pt arrived to ICU room 07468 onver darnell Transaction, Provider Unknown - 12/27/2017 7:35 AM PDT Nurse Progress Note by Jane Real RN at 12/27/17 0735 Author: Jane Real RN Service: -Emergency Author Type: Registered Nurse Filed: 12/27/17 1034 Date of Service: 12/27/17 0735 Status: Signed Advanced Research Programs Director: Jane Real RN (Registered Nurse) During report cath lab tech onur howell came to retrieve pt for procedure. Transfer of care performe d without event. onver darnell Transaction, Provider Unknown - 12/27/2017 2:21 AM PDT Nurse Progress Note by Demian Ling RN at 12/27/17220 Author: Demian Ling RN Service: (none) Author Type: Registered Nurse Filed: 12/27/17 0606 Date of Service: 12/27/17220 Status: Addendum Advanced Research Programs Director: Demian Ling RN (Registered Nurse) Related Notes: [...] 12/26/171920 Date of Service: 12/26/171919 Status: Signed Advanced Research Programs Director: Lilliana Westbrook RN (Registered Nurse) Chart check review complete. Lilliana Westbrook onver darnell Transaction, Provider Unknown - 12/26/2017 4:50 PM PDT Pharmacy Note by Rolando Russell RPH at 12/26/171649 Author: Roladno Russell RPH Service: Pharmacy Author Type: Pharmacist Filed: 12/26/171649 Date of Service: 12/26/171649 Status: Signed Advanced Research Programs Director: Rolando Russell RPH (Pharmacist) Renal Dosing Monitoring: [...] [place] | | | | | | [address] | | | | | | | [...] | | | | | [place] [address] | | | | | | [phone] | | | | | | | [...] | | | Fingerstick | performed at [facility];[address] | | LAB | | | | [address];[place], [place] | | | | | | [address] | | | | + + + [...] | | | Fingerstick | performed at [facility];[address] | | LAB | | [address];[place], [place] | | | | | | [address] | | | | + + + [...] | | | Fingerstick | performed at [facility];[address] | | LAB | | | | [address];[place] | | | | | | [address] | | | | + + + [...] | | | Basophils | performed at [facility];[address] | K/uL | LAB | | | | [address];[place], [place] | | | | | | [address] | | | | + + + [...] EXTERNAL | | | | performed at [facility] | | LAB | | | | [address] [facility];[place], [place] | | | | | | [address] | | | | + + + [...] EXTERNAL | | | | performed at [facility];[address] | | LAB | | | | [address];[place] | | | | | | [address] | | | | + + + [...] | | | | | | MDRD [facility] traceable | | | | | | equation.Testing | | | | | | performed at [facility];[address] | | | | | | [facility];[place], [place] | | | | | | [address] | | | | + + + [...] | | | Fingerstick | performed at [facility];[address] | | LAB | | | | [address];[place] | | | | | | [address] | | | | + + + [...] | | | Fingerstick | performed at [facility];[address] | | LAB | | | | [address];[place], [place] | | | | | | [address] | | | | + + + [...] | | | Fingerstick | performed at [facility];[address] | | LAB | | | | [address];[place] | | | | | | [address] | | | | + + + [...] | | | Fingerstick | performed at [facility];[address] | | LAB | | | | [address];[place] | | | | | | [address] | | | | + + + [...] | | | Basophils | performed at [facility], [address] | K/u[address] | LAB | | | | [address], | | | | | | [place] [address] | | | | + + + [...] EXTERNAL | | | | performed at [facility], [address] | | LAB | | | | [address], | | | | | | [place] [address] | | | | + + + [...] EXTERNAL | | | | performed at [facility], [address] | | LAB | | | | [address], | | | | | | [place] [address] | | | | + + + [...] | | | | | performed at [facility], [address] | | | | | | [facility], | | | | | | [place] [address] | | | | + + + [...] | | | Fingerstick | performed at [facility];[address] | | LAB | | | | [address];[place], [place] | | | | | | [address] | | | | + + + [...] | | | Fingerstick | performed at [facility];[address] | | LAB | | | | [address];[place] | | | | | | [address] | | | | + + + [...] | | | Fingerstick | performed at [facility];[address] | | LAB | | | | [address];[place] | | | | | | [address] | | | | + + + [...] | | | Basophils | performed at [facility];[address] | K/uL | LAB | | | | [address];[place] | | | | | | [address] | | | | + + + [...] EXTERNAL | | | | performed at [facility];[address] | | LAB | | | | [facility];[place], [place] | | | | | | [address] | | | | + + + [...] EXTERNAL | | | | performed at [facility] | | LAB | | | | [address];[place] | | | | | | [address] | | | | + + + [...] EXTERNAL | | | | performed at [facility];[address] | | LAB | | | | [address];[place], [place] | | | | | | [address] | | | | + + + [...] | | | | | performed at [facility] [facility];888 | | | | | | [facility];[place], [place] | | | | | | [address] | | | | + + + [...] | | | Fingerstick | performed at [facility];888 | | LAB | | | | [address];[place], [place] | | | | | | [address] | | | | + + + [...] | | | Fingerstick | performed at [facility];888 | | LAB | | | | Cindy Rodriges;[place] | | | | | | [address] | | | | + + + [...] | | | Fingerstick | performed at [facility];888 | | LAB | | | | Cindy Rodriges;[place] | | | | | | [address] | | | | + + + [...] | | | Fingerstick | performed at [facility];888 | | LAB | | | | Cindy Rodriges;[place], [place] | | | | | | [address] | | | | + + + [...] + + | Historically converted procedure from [facility] environment | EXTERNAL LAB | + [...] | | | Basophils | performed at [facility];888 | K/uL | LAB | | | | Cindy Rodriges;[place] | | | | | | [address] | | | | + + + [...] | | | | | performed at [facility], [address] | | | | | [facility], | | | | | | [place] [address] | | | | + + + [...] EXTERNAL | | | | performed at [facility];8 | | LAB | | | | Cindy Rodriges;[place], [place] | | | | | | [...] EXTERNAL | | | | performed at [facility];888 | | LAB | | | | [address] Rodrig[address];[place], [place] | | | | | | [address] | | | | + + + [...] | | | Fingerstick | performed at [facility];888 | | LAB | | | | Cindy Rodriges;[place] | | | | | | [address] | | | | + + + [...] | | | Fingerstick | performed at [facility];888 | | LAB | | | | Cindy Rodriges;[place] | | | | | | [address] | | | | + + + [...] EXTERNAL | | | | performed at [facility];888 | mmol/L | LAB | | | | Cindy Rodriges;[place], [place] | | | | | | [address] | | | | + + + [...] EXTERNAL | | | | performed at [facility];888 | | LAB | | | | Cindy Rodriges;[place], [place] | | | | | | [address] | | | | + + + [...] | | | | | INDICATIONS Acute RI CONCLUSIONS 1. | | | This was [...] TR Vmax: | | | 3.63 m/s Certified Diabetes Educator: Authenticated by: NASH BENITEZ MD | | [...] (A-L): 30.10 ml/m2LAAs A2C: 25.25 | | [id number] A-L A2C: 80.09 mlLALs A2C: 6.76 cmLAAs A4C: 17.87 [id number] A-L A4C: | | 42.38 mlLALs A4C: 6.39 cmTAPSE: 2.27 cmHR: 57.46 BPMAV maxP.37 mmHgAV | | meanP.40 mmHgAV Vmax: 1.61 m/Maurice Vmean: 1.22 m/Maurice VTI: 41.09 cmAVA Vmax: | | 2.19 cm2AVA (VTI): 1.92 ul2GOPH Vmax: 0.00 cm2/m2AVAI (VTI): 0.00 cm2/m2LVCI Dopp: | | 2.22 l/tlia1DIHI Dopp: 4.42 l/minHR: 55.98 BPMLVOT maxP.74 mmHgLVOT [...] maxP.80 mmHgTR Vmax: 3.63 m/s | | Certified Diabetes Educator: Luciticated by: Haily HATCH Date/Time: 12-27-2017 18:35:12 [...] |TR Vmax: 3.63 m/s | | | |Certified Diabetes Educator: | |Authenticated by: NASH BENITEZ MD | [...] | | | Fingerstick | performed at [facility];[address] | | LAB | | | | [address];[place] | | | | | | [address] | | | | + + + [...] + + | Historically converted procedure from [employer] [facility] environment | EXTERNAL LAB | + [...] | | | Fingerstick | performed at [facility];[address] | | LAB | | | | [address];[place], [place] | | | | | | [address] | | | | + + + [...] NEGATIVE Testing | | | performed at [facility];[address] [place] [address];[place] [address] | | + + + + +---------+ [...] femoral | | | artery through a 6-Icelandic, 23 cm sheath. I walked into the room, | | | introduced myself to the patient. A new timeout was performed, and | | | through the right femoral sheath I advanced a 6-Icelandic AL1 guide. | | | That was [...] and then I advanced a short BMW Willard wire to the | | | obtuse [...] | over the wire I advanced an [place] 6-Icelandic retrieval device that | | | retrieved [...] was to do an attempt of a 6-Icelandic Perclose device, so I | | | [...] | | common femoral artery through a 6-Icelandic, 23 cm sheath. I walked into the | | room, introduced myself to the patient. A new timeout was performed, and | | through the right femoral sheath I advanced a 6-Icelandic AL1 guide. That was | | advanced [...] and then I advanced a short BMW Willard wire to the | | obtuse marginal, [...] so over the wire I advanced an [place] 6-Icelandic | | retrieval device that retrieved a [...] do an attempt | | of a 6-Icelandic Perclose device, so I removed the sheath [...] | | | POC | performed at [facility];888 | g/dL | LAB | | | | Cindy Rodriges;[place], [place] | | | | | | [address] | | | | + + + [...] | | | Clotting | performed at [facility];888 | seconds | LAB | | | time, POC | Cindy Rodriges;[place], [place] | | | | | | [address] | | | | + + + [...] | | | Fingerstick | performed at [facility];888 | | LAB | | | | Cindy Rodriges;[place] | | | | | | [address] | | | | + + + [...] | | | Clotting | performed at [facility];888 | seconds | LAB | | | time, POC | Cindy Rodriges;[place] | | | | | | [address] | | | | + + + [...] | | | Clotting | performed at [facility];888 | seconds | LAB | | | time, POC | Cindy Rodriges;[place] | | | | | | [address] | | | | + + + [...] | | | Clotting | performed at [facility];888 | seconds | LAB | | | time, POC | Cindy Rodriges;[place] | | | | | | [address] | | | | + + + [...] attempt. The guidewire was passed and a 6-Icelandic | | | introducer sheath was inserted into the right common femoral artery. | | | A 0.035-inch J-tip guidewire was used to advance a 5-Icelandic FL4 via | | | the aortic root where it was used to perform selective angiography | | | of the [place] left coronary circulation in multiple views in standard | | | fashion. Via guidewire exchange, a 5-Icelandic FR4 catheter was | | | advanced to the aortic root, but failed to locate the ostium of the | | | [place] right coronary artery, which is presumed to [...] J-tip guidewire | | | for a 5-Icelandic ANAMARIA catheter, which was used to perform [...] easily visible on | | | fluoroscopy. O[place] CORONARY ARTERIES: 1. Left Main: This is [...] | | and a large first septal certified flight instructor branch. This septal certified flight instructor | | | branch is normal. The [...] widely | | | patent. There are [id number] collaterals to the third obtuse | | [...] disease. | | | CONCLUSIONS: 1. Severe [place]qual[place] 3-vessel coronary artery disease | | | with an occluded left anterior descending artery and presumed total | | | occlusion of the proximal [place] right coronary artery. 2. Patent | | [...] attempt. The guidewire was passed and a 6-Icelandic introducer sheath was | | inserted into the right common femoral artery. A 0.035-inch J-tip | | guidewire was used to advance a 5-Icelandic FL4 via the aortic root where it | | was used to perform selective angiography of the [place]qual[place] left coronary circulation | | in multiple views in standard fashion. Via guidewire exchange, a 5-Icelandic | | FR4 catheter was advanced to the aortic root, but failed to locate the | | ostium of the [place] right coronary artery, which is presumed to [...] 0.035-inch J-tip guidewire for a | | 5-Icelandic ANAMARIA catheter, which was used to perform [...] visible on fluoroscopy. | | | | [place] CORONARY ARTERIES: | | 1. Left Main: [...] and a large first septal | | certified flight instructor branch. This septal certified flight instructor branch is normal. The first | | [...] | and is widely patent. There are cujr-[id number]-[id number] collaterals to the third | | obtuse [...] | | CONCLUSIONS: | | 1. Severe s[place]qual[place] 3-vessel coronary artery disease with an occluded left | | anterior descending artery and presumed total occlusion of the proximal | | [place] right coronary artery. | | 2. Patent [...] | | | Patient | performed at [facility];[address] | | LAB | | | | [address];[place], [place] | | | | | | [address] | | | | + + + [...] | | | Fingerstick | performed at [facility];888 | | LAB | | | | Cindy Rodriges;[place] | | | | | | [address] | | | | + + + [...] | | | | | | ACUTE RI CALLED NURSING | | | | | | UNITREAD BACK RESULTS | | | | | | VERIFIEDABEBEA B IN 4RP | | | | | | AT 0603 BY TDTesting | | | | | | performed at [facility];[address] | | | | | | Cindy [facility];[place], [place] | | | | | | [address] | | | | + + + [...] | | | Basophils | performed at [facility], [address] | K/uL | LAB | | | | [place], | | | | | | [place] [address] | | | | + + + [...] EXTERNAL | | | | performed at [facility], [address] | uIU/mL | LAB | | | | [place], | | | | | | [place] [address] | | | | + + + [...] EXTERNAL | | | | performed at [facility], [address] | | LAB | | | | [place], | | | | | | [place] [address] | | | | + + + [...] EXTERNAL | | | | performed at [facility], [address] | | LAB | | | | [place], | | | | | | [place] [address] | | | | + + + [...] | EXTERNAL | | | A1c | [place] Diabetes | | LAB | | | [...] | | | | | performed at [facility], [address] | | | | | | [facility], | | | | | | [place] [address] | | | | + + + [...] | | | Cholesterol | performed at [facility], [address] | | LAB | | | , | [place], | | | | | Calculated, | [place] [address] | | | | | External | [...] | | | | | | MDRD IDCO traceable | | | | | | equation.Testing | | | | | | performed at [facility], [address] | | | | | | [facility], | | | | | | [place] [address] | | | | + + + [...] + + | Historically converted procedure from [facility] Epic environment | EXTERNAL LAB | + [...] | | | | | | ACUTE RI CALLED TO | | | | | | BANDAR Mccormick RN/4RP AT | | | | | | 0030 BY MWREAD BACK | | | | | | RESULTS VERIFIEDTesting | | | | | | performed at [facility];888 | | | | | | Cindy [address];[place], [place] | | | | | | [address] | | | | + + + [...] | | | Patient | performed at [facility];[address] | | LAB | | | [address];[place], [place] | | | | | | [address] | | | | + + + [...] | | | Fingerstick | performed at [facility];888 | | LAB | | | | Cindy Rodriges;[place], [place] | | | | | | [address] | | | | + + + [...] | | | | | ZACKARY CALIX (376) on | | | | | | 12/27/2017 12:12:43 PM | | | | + + + + + + + + | Specimen | + + | | + + + + + | Narrative | Performed At | + + + | Historically converted procedure from [facility] environment | EXTERNAL LAB | + [...] | | | | | | ACUTE RI CALLED | | | | | | RESULTSREAD BACK RESULTS | | | | | | VERIFIEDMEGAN W/4RP AT | | | | | | 1751 BY MAHTesting | | | | | | performed at [facility];[address] | | | | | | [facility];[place], [place] | | | | | | [address] | | | | + + + [...] | | | Patient | performed at [facility];[address] | | LAB | | | | [address];[place], [place] | | | | | | [address] | | | | + + + [...] | | | | | performed at [facility] | | | | | | Cindy Sandoval;[place], [place] | | | | | | [address] | | | | + + + [...] | | | Fingerstick | performed at [facility];[address] | | LAB | | | | [address];[place], [place] | | | | | | [address] | | | | + + + [...]
--- OUTSIDE RECORDS SUMMARY | ~2019-05-09 | XMS | Encounter Summary ---
Demographics + + + | Address | [address] | | | [place] [address] | + + + | Home Phone [...] Team Providers + +------+ + | Care Microfabrication Engineer Manager Name | Role | Phone | + +------+ + | Roxana Barajas PA-C | PCP | | + +------+ + Encounter Details +--------+ + + + + | Date | Type | Department | Care Team | Description | +--------+ + + + + | 02/26/ | Orders Only | [facility] | Tres Hewitt [place], | | | 2014 | | [facility] [place] | [address] | | | | | ECHO [address] | [place] [address] | | | | | [facility] [employer] [place] | [phone] | | | | | [address] | | | | | | [phone] | | | +--------+ + + + [...] [place] | | | | | | [address] | | | | | | | [...] | | | | | [place] [address] | | | | | | [phone] | | | | | | | [...] MV A Jarrod: 1.29 m/s MV Dec Chippewa: 3.15 m/s2 MV | | | DecT: [...] TR Vmax: 2.95 m/s | | | Vehicle Fare Collector: JOSÉ ANTONIO Authenticated by: Tres Hewitt MD, [...] cmLVPWd: 1.26 cmLVOT Area: | | 3.40 [id number] Diam: 2.08 cm%FS: 17.35 %EF(Teich): 35.72 %ESV(Teich): [...] (A-L): 24.59 ml/m2LAAs | | A2C: 19.49 [id number] A-L A2C: 63.19 mlLALs A2C: 5.10 cmLAAs A4C: 15.24 [id number] | | A-L A4C: 35.39 mlLALs A4C: 5.57 cmRAAs: 15.89 [id number] A-L: 38.86 mlRAESV MOD: | | 40.41 mlRALs: 5.51 cmAo Diam: 2.92 cmAo/LA: 0.62LA Diam: 4.69 cmLA/Ao: 1.60AV | | maxP.55 mmHgAV meanP.97 mmHgAV Vmax: 1.54 m/Maurice Vmean: 1.17 m/Maurice VTI: | | 35.32 cmAVA Vmax: 2.32 cm2AVA (VTI): 2.20 [id number] (Vmax): 0.00 cm2/m2AVAI (VTI): | | 0.00 cm2/m2LVOT maxP.45 mmHgLVOT meanP.42 mmHgLVSI Dopp: 38.73 | | ml/m2LVSV Dopp: 77.85 mlLVOT Vmax: 1.05 m/sLVOT Vmean: 0.74 m/sLVOT VTI: 22.88 | | cmMV A Jarrod: 1.29 m/sMV Dec Chippewa: 3.15 m/s2MV DecT: 273.13 msMV E Jarrod: 0.86 | | m/sMV E/A Ratio: 0.66MV PHT: 79.21 msMVA By PHT: 2.77 mh1Obylfl e': 0.03 | | m/sSeptal E/e': 22.10Lateral e': 0.06 m/sLateral E/e': 12.90PAEDP: 9.92 | | mmHgPRend P.92 mmHgPRend Vmax: 1.10 m/sPV maxP.12 mmHgPV Vmax: 1.12 | | m/sRAP: 5 mmHgRVSP: 39.84 mmHgTR maxP.84 mmHgTR Vmax: 2.95 m/s Vehicle Fare Collector: | | RKAuthenticated by: Tres Hewitt MD, [...] A Jarrod: 1.29 m/s | |MV Dec Chippewa: 3.15 m/s2 | |MV DecT: 273.13 ms [...] |TR Vmax: 2.95 m/s | | | |Vehicle Fare Collector: RK | |Authenticated by: Tres Hewitt MD, [...]
--- OUTSIDE RECORDS SUMMARY | ~2019-05-09 | XMS | Encounter Summary ---
Demographics + + + | Address | [address] | | | [place] [address] | + + + | Home Phone | | + + + | Preferred Language | Unknown | + + + | Marital Status | | + + + | Yazidism Affiliation | 1041 | + + + | Race | Unknown | + + + | Ethnic Group | Unknown | + + + Author + + + | Author | [facility] | | | and [place] | + + + | Organization | [facility] | | | [...] Team Providers + +------+ + | Care Farmhand Name | Role | Phone | + +------+ + | Roxana Barajas PA-C | PCP | | + +------+ + Encounter Details +--------+ + + + + | Date | Type | Department | Care Team | Description | +--------+ + + + + | 03/27/ | Orders Only | [facility] | Arthur Childers | | | 2009 | | [facility] | MD Johnnie [address] | | | | | CLINICAL LABORATORY | [address] [place], [place] | | | | | [address] | [address] | | | | | [place], [place] | [phone] | | | | | [address] | | | | | | [phone] | | | +--------+ + + + [...] | | | | | [place] [address] | | | | | | [phone] | | | | | | | [...] EXTERNAL LAB | | Testing performed at [address];[place] [address] MRSA PCR | | | NEGATIVE Testing performed at | | | [address];[place] [address] | | + + + + +---------+ + + | Performing | Address | City/State/Zipcode | Phone Number | | Organization | | | | + +---------+ + + | EXTERNAL LAB | | | | + +---------+ + + documented in this encounter Visit Diagnoses Not on filedocumented in this encounter"
--- OUTSIDE RECORDS SUMMARY | ~2019-05-09 | XMS | Encounter Summary ---
Demographics + + + | Address | [address] | | | [place] [address] | + + + | Home Phone [...] Providers + +------+ + | Care Supervisor Braiding Name | Role | Phone | + +------+ + PCP | Unavailable | + +------+ + Encounter Details +--------+ + + + + | Date | Type | Department | Care Team | Description | +--------+ + + + + | 02/09/ | [facility] | [facility] | | | | 2006 - | Encounter | MED CTR MED ONC | | | | | | [address] | | | | 02/10/ | | [place] [address] | | | | 2005 | | [phone] | | | +--------+ + + + [...] [place] | | | | | | [address] | | | | | | | [...] | | | | | [place] [address] | | | | | | [phone] | | | | | | | | +--------+ + + + + | 09/10/ | Procedure | Cardiology | | | | 2019 | visit | | | | +--------+ + + + + documented as of this encounter Visit Diagnoses Not on filedocumented in this encounter"
--- OUTSIDE RECORDS SUMMARY | ~2019-05-09 | XMS | Encounter Summary ---
Demographics + + + | Address | [address] | | | [place] [address] | + + + | Home Phone [...] Providers + +------+ + | Care Manager Private Name | Role | Phone | + +------+ + PCP | Unavailable | + +------+ + Encounter Details +--------+ + + + + | Date | Type | Department | Care Team | Description | +--------+ + + + + | 03/27/ | Hospital | [facility] | Arthur Childers | Fitting and | | 2009 | Encounter | [facility]ENTER | MD Johnnie [address] | adjustment of | | | | CLINICAL DECISION | [address] [place] | automatic | | | | [address] | [address] | implantable cardiac | | | | [place], [place] | [phone] | defibrillator | | | | [address] | | | | | | [phone] | | | +--------+ + + + [...] [place] | | | | | | [address] | | | | | | | [...] | | | | | [place] [address] | | | | | | [phone] | | | | | | | [...]
--- OUTSIDE RECORDS SUMMARY | ~2019-05-09 | XMS | Encounter Summary ---
Demographics + + + | Address | [address] | | | [place] [address] | + + + | Home Phone | | + + + | Preferred Language | Unknown | + + + | Marital Status | | + + + | Yarsani Affiliation | 1041 | + + + | Race | Unknown | + + + | Ethnic Group | Unknown | + + + Author + + + | Author | [facility] | | | and [place] | + + + | Organization | [facility] | | | [...] Team Providers + +------+ + | Care Technical Professional Name | Role | Phone | + +------+ + PCP | Unavailable | + +------+ + Encounter Details +--------+ + + + + | Date | Type | Department | Care Team | Description | +--------+ + + + + | 03/31/ | Hospital | [facility] | Lydia Christensen | | | 2006 | Encounter | MED CTR EMERGENCY | Neeru Hwang MD [address] | | | | | CENTER [address] | [facility] | | | | | [place], [place] | [place] [address] | | | | | [address] | [phone] | | | | | [phone] | | | +--------+ + + + [...] [place] | | | | | | [address] | | | | | | | [...] | | | | | [place] [address] | | | | | | [phone] | | | | | | | | +--------+ + + + + | 09/10/ | Procedure | Cardiology | | | | 2019 | visit | | | | +--------+ + + + + documented as of this encounter Visit Diagnoses Not on filedocumented in this encounter"
--- OUTSIDE RECORDS SUMMARY | ~2019-05-09 | XMS | Encounter Summary ---
Demographics + + + | Address | [address] | | | [place] [address] | + + + | Home Phone | | + + + | Preferred Language | Unknown | + + + | Marital Status | | + + + | Shinto Affiliation | 1041 | + + + | Race | Unknown | + + + | Ethnic Group | Unknown | + + + Author + + + | Author | [facility] | | | and [place] | + + + | Organization | [facility] | | [...] Team Providers + +------+ + | Care Flag Decorator Name | Role | Phone | + [...] | | | | | | | [place] | | | | | | | [address] | | | | | | | Phone: | | | | | | | [phone] | | | | | | | Fax: | | | | | | | [phone] | +--------+--------+ + + + + Encounter Details +--------+---------+ + + + | Date | Type | Department | Care Team | Description | +--------+---------+ + + + | 02/27/ | Office | [facility] | Zheng Saravia | Chronic obstructive | | 2019 | Visit | PULMONOLOGY [address] | Eddie Bowden MD [address] | pulmonary disease, | | | | [place] | [place] | unspecified COPD | | | | [place], [place] | [place] [address] | type (HCC) (Primary | | | | [address] | [phone] | Dx); Personal | | | | [phone] | | history of tobacco | | [...] might be dif ferent from the original. [facility] PULMONOLOGY [address] [place] [address] HISTORY: Chief Complaint: I have been asked [...] for COPD. She was recently admitted at [facility] for an "acute bronchitis". She was treated [...] COPD (chronic obstructive pulmonary disease) ([facility]) h/o chronic bronchitis, long h/o tobacco abuse Coronary artery disease involving [place] coronary artery s/p CABG x3 (SVG to LAD, SVG to RCA, SVG to OM3) 1994, s/p KERA to SVG to OM3 01/01 Diabetes mellitus type 2 in obese ([facility]) diet controlled History of syncope 2003 secondary to VT 2003, one recurrent episode remotely since her AICD was implanted. Hyperlipidemia Hypertension Ischemic dilated cardiomyopathy (HCC) EF was 27% on echo 08/01/03, improved to 50-55% on echo 02/18/15 Old ME (myocardial infarction) 1993 Osteoarthritis Pulmonary embolism ([facility]) Pulmonary hypertension ([facility]) RVSP 58-63 on echo 01/01 S/P CABG [...] years" Tobacco abuse Ventricular tachycardia, paroxysmal ([facility]) 2003 with Syncope, + EPS for inducible [...] PLACEMENT intial AICD 2003, generator change 03/27/11, [employer] Telogen E110, s# [id number]; R V Lead - Guidant 0184, s# [id number] (08/15/03); RA Lead - Guidant Fineline II EZ Sterox 4469, s # [id number] (08/15/03) COLONOSCOPY CORONARY ARTERY BYPASS GRAFT 1994 [...] EF 40-45%, mild MR, mild TR, tr [place], RVSP 58-63 Current Medications: Outpatient Medications acetaminophen [...] lungs. - she was recently admitted at [facility] with what sounds like a COPD exacerbation. [...] Saravia MD Pulmonary and Critical Care Medicine [facility] Pulmonology documented in this encounter [...] [place] | | | | | | [address] | | | | | | | [...] | | | | | [place] [address] | | | | | | [phone] | | | | | | | [...]
--- OUTSIDE RECORDS SUMMARY | ~2019-05-09 | XMS | Encounter Summary ---
Demographics + + + | Address | [address] | | | [place] [address] | + + + | Home Phone | | + + + | Preferred Language | Unknown | + + + | Marital Status | | + + + | Taoist Affiliation | 1041 | + + + | Race | Unknown | + + + | Ethnic Group | Unknown | + + + Author + + + | Author | [facility] | | | and [place] | + + + | Organization | [facility] | | [...] Team Providers + +------+ + | Care Subway Car Repairer Name | Role | Phone | + +------+ + | Pcp, Prov Inactive | PCP | | + +------+ + Encounter Details +--------+ + + + + | Date | Type | Department | Care Team | Description | +--------+ + + + + | 12/13/ | Orders Only | [facility] | Provider, | | | 2018 | | SYSTEM GENERIC OP | MD [address] | | | | | [address] | [address] | | | | | [address] [place], [place] | [place] [address] | | | | | [address] | | | | | | [phone] | | | +--------+ + + + [...] | | | | | | [place] | | | | | | [address] | | | | | | | [...] | | | | | [place] [address] | | | | | | [phone] | | | | | | | | +--------+ + + + + | 09/10/ | Procedure | Cardiology | | | | 2019 | visit | | | | +--------+ + + + + documented as of this encounter Visit Diagnoses Not on filedocumented in this encounter"
--- OUTSIDE RECORDS SUMMARY | ~2019-05-09 | XMS | Encounter Summary ---
Demographics + + + | Address | [address] | | | [place] [address] | + + + | Home Phone | | + + + | Preferred Language | Unknown | + + + | Marital Status | | + + + | Hindu Affiliation | 1041 | + + + [...] Team Providers + +------+ + | Care Bar Pointer Name | Role | Phone | + [...] | month remote | PA-C 2230 | [place] | | | | | Procedures | [address] | [address] | | | | | REMOTE | [place] | | | | | | DEVICE CHECK | [address] | [place], [place] | | | | | | [place], | [address] | | | | | | [place] | Phone: | | | | | | [address] | [phone] | | | | | | Phone: | Fax: | | | | | | [phone] | [phone] | | | | | | Fax: | | | | | | | [phone] | | +--------+--------+ + + + + Encounter Details +--------+ + + + + | Date | Type | Department | Care Team | Description | +--------+ + + + + | 03/13/ | Procedure | [facility] | | Cardiac | | 2019 | visit | CARDIOLOGY [place] | | defibrillator in | | | | [address] | | situ (Primary Dx) | | | | [place], [place] | | | | | | [address] | | | | | | [phone] | | | +--------+ + + + [...] [place] | | | | | | [address] | | | | | | | [...] | | | | | [place] [address] | | | | | | [phone] | | | | | | | [...] Barajas PA-C : 1940MRN: | | | [id number] Primary cardiology provider: Tres Hewitt Primary | | | electrophysiology provider: Erin Caba Device strap maker: | | | HistoPathway Device type: Dual chamber Battery Longevity: 3 [...]
--- OUTSIDE RECORDS SUMMARY | ~2019-05-09 | XMS | Encounter Summary ---
Demographics + + + | Address | [address] | | | [place] [address] | + + + | Home Phone [...] Team Providers + +------+ + | Care Network Firewall Engineer Name | Role | Phone | + +------+ + | Roxana Barajas PA-C | PCP | | + +------+ + Encounter Details +--------+ + + + + | Date | Type | Department | Care Team | Description | +--------+ + + + + | 12/30/ | Orders Only | [facility] | Dawn Burrows | Essential (primary) | | 2019 | | CARDIOLOGY [place] | [address] | hypertension; Mixed | | | | [address] | [address] | hyperlipidemia | | | | [address] | [place] [address] | | | | | [place] | [phone] | | | | | [address] | | | | | | [phone] | | | +--------+ + + + [...] [address] | | | | | | [facility] | | | | | | [place] | | | | | | [address] | | | | | | | [...] E | | | | | | [place] [address] | | | | | | [phone] | | | | | | | [...]
--- OUTSIDE RECORDS SUMMARY | ~2019-05-09 | XMS | Encounter Summary ---
Demographics + + + | Address | [address] | | | [place] [address] | + + + | Home Phone | | + + + | Preferred Language | Unknown | + + + | Marital Status | | + + + | Scientologist Affiliation | 1041 | + + + | Race | Unknown | + + + | Ethnic Group | Unknown | + + + Author + + + | Author | [facility] | | | and [place] | + + + | Organization | [facility] | | | and [...] Team Providers + +------+ + | Care Puppet Engineer Name | Role | Phone | + +------+ + | Pcp, Prov Inactive | PCP | | + +------+ + Encounter Details +--------+ + + + + | Date | Type | Department | Care Team | Description | +--------+ + + + + | 01/09/ | Hospital | [facility] IP | Conversion | Pain | | 2018 | Encounter | CONVERSION [address] | Transaction, | | | | | [address] | Provider Unknown | | | | | [place], [place] | [phone] | | | | | [address] | | | | | | [phone] | | | +--------+ + + + [...] [address] | | | | | | [facility] | | | | | | [place] | | | | | | [address] | | | | | | | [...] [place] | | | | | | [place] [address] | | | | | | [phone] | | | | | | | [...]
--- OUTSIDE RECORDS SUMMARY | ~2019-05-09 | XMS | Encounter Summary ---
Demographics + + + | Address | [address] | | | [place] [address] | + + + | Home Phone | | + + + | Preferred Language | Unknown | + + + | Marital Status | | + + + | Congregation Affiliation | 1041 | + + + | Race | Unknown | + + + | Ethnic Group | Unknown | + + + Author + + + | Author | [facility] | | | and [place] | + + + | Organization | [facility] | | | [...] Providers + +------+ + | Care Tax Services Professional Name | Role | Phone [...] MD [address] | | | | | [place], [place] | [address] | | | | | [address] | [place] [address] | | | | | [phone] | [phone] | | | | | | | [...] | 2019 | Visit | | MD Soren Kenney | | | | | | [address] | | | | | | [place] | | | | | | [address] | | | | | | | [...] [place] | | | | | | [place] [address] | | | | | | [phone] | | | | | | | [...]
--- OUTSIDE RECORDS SUMMARY | ~2019-05-09 | XMS | Encounter Summary ---
Demographics + + + | Address | [address] | | | [place] [address] | + + + | Home Phone [...] + + | Author | [facility] | | | and [place] | + + + | Organization | [facility] | | | and [place] | + [...] Team Providers + +------+ + | Care Title I Director Name | Role | Phone | [...] | | | | | | | [place] | | | | | | | [address] | | | | | | | Phone: | | | | | | | [phone] | | | | | | | Fax: | | | | | | | [phone] | +--------+--------+ + + + + Encounter [...] | unspecified COPD | | | | [place], [place] | [place] [address] | type (HCC) (Primary | | | | [address] | [phone] | Dx); Personal | | | | [phone] | | history of tobacco | | [...] might be dif ferent from the original. [facility] [address] [place] [address] HISTORY: Chief Complaint: I have been asked [...] for COPD. She was recently admitted at [facility] for an "acute bronchitis". She was treated [...] pneumonia 2011 COPD (chronic obstructive pulmonary disease) ([facility]) h/o chronic bronchitis, long h/o tobacco abuse Coronary artery disease involving [place] coronary artery s/p CABG x3 (SVG to LAD, SVG to RCA, SVG to OM3) 1994, s/p KERA to SVG to OM3 01/01 Diabetes mellitus type 2 in obese ([facility]) diet controlled History of syncope 2003 secondary to VT 2003, one recurrent episode remotely since her AICD was implanted. Hyperlipidemia Hypertension Ischemic dilated cardiomyopathy (HCC) EF was 27% on echo 08/01/03, improved to 50-55% on echo 02/18/15 Old DC (myocardial infarction) 1993 Osteoarthritis Pulmonary embolism ([facility]) Pulmonary hypertension ([facility]) RVSP 58-63 on echo 01/01 [...] "6 years" Tobacco abuse Ventricular tachycardia, paroxysmal ([facility]) 2003 with Syncope, + EPS [...] PLACEMENT intial AICD 2003, generator change 03/27/11, [place] [employer] Telogen E110, s# [id number]; R V Lead - Guidant 0184, s# [id number] (08/15/03); RA Lead - Guidant Fineline II EZ Sterox 4469, s # [id number] (08/15/03) COLONOSCOPY CORONARY ARTERY BYPASS GRAFT 1994 [...] EF 40-45%, mild MR, mild TR, tr IA, RVSP 58-63 Current Medications: Outpatient Medications acetaminophen [...] of Onset Coronary artery disease Mother 60 DC Alzheimer's disease Brother Other (see comment) Brother [...] lungs. - she was recently admitted at [facility] with what sounds like a COPD exacerbation. [...] Saravia MD Pulmonary and Critical Care Medicine [facility] Pulmonology documented in this encounter Plan [...] [place] | | | | | | [address] | | | | | | | | +--------+ + + + + | 06/12/ | Procedure | Cardiology | | | | 2019 | visit | | | | +--------+ + + + + | 06/29/ | Office | Pulmonology | Zheng Saravia | | | 2019 | Visit | | Eddie Bowden MD [address] | | | | | | [address] | | | | | | [place] [address] | | | | | | [phone] | | | | | | | [...]
--- OUTSIDE RECORDS SUMMARY | ~2019-05-09 | XMS | Encounter Summary ---
Demographics + + + | Address | [address] | | | [place] [address] | + + + | Home Phone [...] Team Providers + +------+ + | Care Automobile Insurance Claim Examiner Name | Role | Phone | + [...] MD [address] | | | | | [place], [place] | [address] | | | | | [address] | [place] [address] | | | | | [phone] | | | | | | | [...] [place] | | | | | | [address] | | | | | | | [...] [address] | | | | | | [place] [address] | | | | | | [phone] | | | | | | | [...]
--- OUTSIDE RECORDS SUMMARY | ~2019-05-09 | XMS | Encounter Summary ---
Demographics + + + | Address | [address] | | | [place] [address] | + + + | Home Phone [...] Team Providers + +------+ + | Care Hardwood Floor Layer Name | Role | Phone | + [...] | SR | | | | | [phone] | | | +--------+ + + + [...] [place] | | | | | | [address] | | | | | | | [...] | | | | | [place] [address] | | | | | | [phone] | | | | | | | | +--------+ + + + + | 09/10/ | Procedure | Cardiology | | | | 2019 | visit | | | | +--------+ + + + + documented as of this encounter Visit Diagnoses Not on filedocumented in this encounter
--- OUTSIDE RECORDS SUMMARY | ~2019-05-09 | XMS | Encounter Summary ---
Demographics + + + | Address | [address] | | | [place] [address] | + + + | Home Phone [...] + +------+ + | Care Director Of Mechanical Engineering Name | Role | Phone | + +------+ + | Pcp, Prov Inactive | PCP | | + +------+ + Encounter Details +--------+ + + + + | Date | Type | Department | Care Team | Description | +--------+ + + + + | 12/13/ | Orders Only | [facility] | Provider, | | | 2018 | | SYSTEM GENERIC OP | MD [address] | | | | | CONVERSION [address] | [address] | | | | | [address] [place], [place] | [place] [address] | | | | | [address] | | | | | | [phone] | | | +--------+ + + + [...] [place] | | | | | | [address] | | | | | | | [...] | | | | | [place] [address] | | | | | | [phone] | | | | | | | | +--------+ + + + + | 09/10/ | Procedure | Cardiology | | | | 2019 | visit | | | | +--------+ + + + + documented as of this encounter Visit Diagnoses Not on filedocumented in this encounter"
--- OUTSIDE RECORDS SUMMARY | ~2019-05-09 | XMS | Encounter Summary ---
Demographics + + + | Address | [address] | | | [place] [address] | + + + | Home Phone | | + + + | Preferred Language | Unknown | + + + | Marital Status | | + + + | Congregation Affiliation | 1041 | + + + | Race | Unknown | + + + | Ethnic Group | Unknown | + + + Author + + + | Author | [facility] | | | and [place] | + + + | Organization | [facility] | | [...] Providers + +------+ + | Care Sales Operations Analyst Name | Role | Phone | + +------+ + | Jasmin Stephens MD | PCP | | + +------+ + Encounter Details +--------+ + + + + | Date | Type | Department | Care Team | Description | +--------+ + + + + | 04/16/ | Hospital | [facility] GENER[facility] IP | Conversion | Diagnosis unknown | | 2016 | Encounter | CONVERSION [address] | Transaction, | | | | | [address] | Provider Unknown | | | | | [facility] [place] | [phone] | | | | | [address] | | | | | | [phone] | | | +--------+ + + + [...] [address] | | | | | | [facility] | | | | | | [place] | | | | | | [address] | | | | | | | [...] E | | | | | | [place] [address] | | | | | | [phone] | | | | | | | [...]
--- OUTSIDE RECORDS SUMMARY | ~2019-05-09 | XMS | Encounter Summary ---
Demographics + + + | Address | [address] | | | [place] [address] | + + + | Home Phone | | + + + | Preferred Language | Unknown | + + + | Marital Status | | + + + | Evangelical Affiliation | 1041 | + + + [...] Providers + +------+ + | Care Director Emergency Name | Role | Phone | + +------+ + | Roxana Barajas PA-C | PCP | | + +------+ + Encounter Details +--------+ + + + + | Date | Type | Department | Care Team | Description | +--------+ + + + + | 12/30/ | Orders Only | [facility] | Dawn Burrows | Essential (primary) | | 2019 | | CARDIOLOGY [place] | [address] | hypertension; Mixed | | | | [address] | [address] | hyperlipidemia | | | | [address] | [place] [address] | | | | | [place] | [phone] | | | | | [address] | | | | | | [phone] | | | +--------+ + + + [...] [address] | | | | | | [facility] | | | | | | [place] | | | | | | [address] | | | | | | | | +--------+ + + + + | 06/12/ | Procedure | Cardiology | | | | 2019 | visit | | | | +--------+ + + + + | 06/29/ | Office | Pulmonology | Zheng Saravia | | | 2019 | Visit | | Eddie Bowden MD [address] | | | | | | [address] | | | | | | [place] [address] | | | | | | [phone] | | | | | | | [...]
--- OUTSIDE RECORDS SUMMARY | ~2019-05-09 | XMS | Clinical Summary ---
Demographics + + + | Address | [address] | | | [place] [address] | + + + | Home Phone | | + + + | Preferred Language | Unknown | + + + | Marital Status | | + + + | Orthodox Affiliation | 1041 | + + + | Race | Unknown | + + + | Ethnic Group | Unknown | + + + Author + + + | Author | [facility] | | | and [place] | + + + | Organization | [facility] | | | [...] Team Providers + +------+ + | Care Courtesy Car Driver Name | Role | Phone | [...] + + | Coronary artery disease involving [place] indian tribe coronary artery | 12/13/2018 | + + [...] Overview: karinaial AICD 2003, generator change 03/27/11, [place] | | Scientific Telogen E110, s# [id number]; RV Lead - Guidant 0184, s# | | [id number] (08/15/03); RA Lead - Guidant Fineline II EZ Sterox 4469, | | s# [id number] (08/15/03) | + + + + + [...] | Coronary artery | Mother | | [place] | | disease | | | | [...] [place] | | | | | | [address] | | | | | | | [...] | | | | | [place] [address] | | | | | | [phone] | | | | | | | [...] | + +-------+------+ +--------+--------+--------+ | Implant Id: [id number] - Synergy | Stent | | [place] | | 08/30/ | [id number] | | 3.5 X -12/27/2017Implanted: | | | SCIENTIFIC | | 2018 | [id number] | | 12/27/2017 by Aquiles Morris, | | | LARRY - BSCI | | | 50 / | | MD (Quantity not on file) | | | | | | /[id number] | | | | | | | | 257 | + +-------+------+ +--------+--------+--------+ | Implant Id: [id number] - Synergy | Stent | | [place] | | 08/30/ | [id number] | | 3.5 X -12/27/2017Implanted: | | | SCIENTIFIC | | 2019 | [id number] | | 12/27/2017 by Aquiles Morris, | | | LARRY - BSCI | | | 50 / | | MD (Quantity not on file) | | | | | | /[id number] | | | | | | | [...] Barajas PA-C : 1940MRN: | | | [id number] Primary cardiology provider: Tres Hewitt Primary | | | electrophysiology provider: Erin Caba Device neonatal nurse: | | | Penxy Device type: Dual chamber Battery Longevity: 3 [...] +--------+ +---------+--------+ | MEDICARE | MEDICA | [id number] | 11/15/19 | [phone] | | Medica | | | RE | | 04-Pre | 5 | | re | | | PART A | | sent | | | | | | AND B | | | | | | + +--------+ +--------+ +---------+--------+ | MEDICARE | MEDICA | [id number] | 11/15/19 | [phone] | | Medica | | | RE | | 04-Pre | 5 | | re | | | PART A | | sent | | | | | | AND B | | | | | | + +--------+ +--------+ +---------+--------+ | [facility] | IHS | [id number] | 05/17/19 | | | Indemn | | SERVICE | YELLOW | | 04-Pre | | | ity | | | HAWK | | sent | | | | + +--------+ +--------+ +---------+--------+ | [facility] | IHS | [phone] | 05/18/19 | | | Indemn | | SERVICE | YELLOW | | 13-Pre | | | ity | | | HAWK | | sent | | | | + +--------+ +--------+ +---------+--------+ | MEDICAID [place] | MEDICA | [id number] | | [phone] | | Medica | [...] Person | Self | [birth year] | | [address] | | | al/Fam | | 1941 | [phone] | [place], [place] | | | [place] | | | 7 (Home) | [address] | + +--------+ +--------+ + + | Yuliana Galindo | Person | Self | [birth year] | | [address] | | | al/Fam | | 1941 | [phone] | [place], [place] | | | [place] | | | [address] (Home) | [address] | + +--------+ +--------+ + + Advance Directives + + + + + | Type | Date Recorded | Patient | Explanation | | | | Test Carrier | | + + + + + | Power of | | | | | Head Grinder | | | | + + + [...]
--- OUTSIDE RECORDS SUMMARY | ~2019-05-09 | XMS | Encounter Summary ---
Demographics + + + | Address | [address] | | | [place] [address] | + + + | Home Phone [...] Team Providers + +------+ + | Care Public Transit Specialist Name | Role | Phone | + +------+ + PCP | Unavailable | + +------+ + Encounter Details +--------+ + + + + | Date | Type | Department | Care Team | Description | +--------+ + + + + | 01/27/ | [facility] | [facility] | | | | 2006 | Encounter | [facility] | | | | | | [address] | | | | | | [place] | | | | | | [address] | | | | | | [phone] | | | +--------+ + + + [...] [place] | | | | | | [address] | | | | | | | [...] | | | | | [place] [address] | | | | | | [phone] | | | | | | | | +--------+ + + + + | 09/10/ | Procedure | Cardiology | | | | 2019 | visit | | | | +--------+ + + + + documented as of this encounter Visit Diagnoses Not on filedocumented in this encounter"
== END 2019-05-09 13:44 | disposition home or self-care (01) ==
LOC: ED 11:36
DX: S76.012A Strain of muscle, fascia and tendon of left hip, initial encounter (principal); X58.XXXA Exposure to other specified factors, initial encounter; J44.9 Chronic obstructive pulmonary disease, unspecified; F17.200 Nicotine dependence, unspecified, uncomplicated; Z79.899 Other long term (current) drug therapy; Z79.52 Long term (current) use of systemic steroids; Z79.84 Long term (current) use of oral hypoglycemic drugs; Z79.82 Long term (current) use of aspirin
CPT/HCPCS: 96372; 99283-25; 99406; J1885

== ENCOUNTER 2019-05-30 22:16 | Emergency (ER) | payer MEDICARE, OTHER ==
[~2019-05-30] VITALS: Ht 160 cm; Wt 105.1 kg
--- OUTSIDE RECORDS SUMMARY | ~2019-05-30 | XMS | Encounter Summary ---
Demographics + + + | Address | [address] | | | [place] [address] | + + + | Home Phone | | + + + | Preferred Language | Unknown | + + + | Marital Status | | + + + | Anabaptism Affiliation | 1041 | + + + | Race | Unknown | + + + | Ethnic Group | Unknown | + + + Author + + + | Author | [facility] | | | and [place] | + + + | Organization | [facility] | | | and [place] | + + + | Address | Unknown | + + + | Phone | Unavailable | + + + Support + + +---------+ + | Name | Relationship | Address | Phone | + + +---------+ + | Kamila Jackson | ECON | Unknown | | + + +---------+ + | Martha Brooksman | ECON | Unknown | | + + +---------+ + Care Team Providers + +------+ + | Care Harness Builder Name | Role | Phone | + +------+ + | Jasmin Stephens MD | PCP | | + +------+ + Encounter Details +--------+ + + + + | Date | Type | Department | Care Team | Description | +--------+ + + + + | 04/16/ | Hospital | [facility] | Conversion | Diagnosis unknown | | 2016 | Encounter | [address] | Transaction, | | | | | [address] | Provider Unknown | | | | | [facility] [place] | [phone] | | | | | [address] | | | | | | [phone] | | | +--------+ + + + [...] on file | | + + + + + + + | Job Start Date | Occupation | Industry | + + + + | Not on file | Not on file | Not on file | + + + + + + + + | Travel History | Travel Start | Travel End | + + + + + + | No recent travel history available. | + + documented as of this encounter Medications at Time of Discharge + + [...] times daily. | | | 12 | | | 250-125 MG-UNIT per | | [...] + + documented as of this encounter Plan of Treatment +--------+ + + + + | Date | Type | Specialty | Care Team | Description | +--------+ + + + + | 06/01/ | Office | Orthopedic Surgery | Manuel Wesley | | | 2019 | Visit | | [address] | | | | | | [address] | | | | | | [place] [address] | | | | | | [phone] | | | | | | | | +--------+ + + + + | 06/12/ | Office | Cardiology | Barak Caba | | | 2019 | Visit | | [address] | | | | | | [facility] | | | | | | [place] | | | | | | [id number] | | | | | | | | +--------+ + + + + | 06/12/ | Procedure | Cardiology | | | | 2019 | visit | | | | +--------+ + + + + | 06/29/ | Office | Pulmonology | Zheng Saravia | | | 2019 | Visit | | Eddie Bowden MD [address] | | | | | | [address] [address] | | | | | | [facility] [place] [place] [address] | | | | | | [phone] | | | | | | | | +--------+ + + + + | 09/10/ | Procedure | Cardiology | | | | 2020 | visit | | | | +--------+ + + + + documented as of this encounter Procedures + +--------+ + + + | Procedure Name | Priori | Date/Time | Associated Diagnosis | Comments | | | ty | | | | + +--------+ + + + | CT ABDOMEN PELVIS W | Routin | 04/06/2016 | | Results for this | | CONTRAST | e | 7:30 PM | | procedure are in the | | | | PST | | results section. | + +--------+ + + + documented in this encounter Results CT Abdomen Pelvis w Contrast (04/06/2016 7:30 PM PST) + + | Specimen | + + | | + + + + + | Narrative | Performed At | + + + | This is a non-reportable procedure without a radiologist report and | | | is used for image storage only | | + + + + + | Procedure Note | + + | Akshat Olson - 12/29/2018 2:31 PM PDT This is a non-reportable procedure | | without a radiologist report and isused for image storage only | + + documented in this encounter Visit Diagnoses + + | Diagnosis | + + | Diagnosis unknown Other unknown and unspecified cause of morbidity or mortality | + + documented in this encounter"
--- OUTSIDE RECORDS SUMMARY | ~2019-05-30 | XMS | Encounter Summary ---
Demographics + + + | Address | [address] | | | [place] [address] | + + + | Home Phone | | + + + | Preferred Language | Unknown | + + + | Marital Status | | + + + | Lutheran Affiliation | 1041 | + + + | Race | Unknown | + + + | Ethnic Group | Unknown | + + + Author + + + | Author | [facility] | | | and [place] | + + + | Organization | [facility] | | | and [place] | + + + | Address | Unknown | + + + | Phone | Unavailable | + + + Support + + +---------+ + | Name | Relationship | Address | Phone | + + +---------+ + | Kamila Jackson | ECON | Unknown | | + + +---------+ + | Marthafernando [place]en[place]ro | ECON | Unknown | | + + +---------+ + Care Team Providers + +------+ + | Care Stock Clipper Name | Role | Phone | + +------+ + PCP | Unavailable | + +------+ + Encounter Details +--------+ + + + + | Date | Type | Department | Care Team | Description | +--------+ + + + + | 08/13/ | Hospital | [facility] | Harsha Avilez, | | | 2003 - | Encounter | [facility] | [address] | | | | | CARDIAC TELEMETRY | [address] | | | 08/15/ | | [address] | [place] [address] | | | 2003 | | [place] | [phone] | | | | | [address] | | | | | | [phone] | | | +--------+ + + + [...] 2019 | Visit | | DHIRAJ Batista | | | | | | [address] | | | | | | [place] [address] | | | | | | [phone] | | | | | | | | +--------+ + + + + | 06/12/ | Office | Cardiology | Barak Caba | | | 2019 | Visit | | [address] | | | | | | [address] | | | | | | [place] | | | | | | [id number] | | | | | | | [...] [address] | | | | | | [place] [address] | | | | | | [phone] | | | | | | | | +--------+ + + + + | 09/10/ | Procedure | Cardiology | | | | 2019 | visit | | | | +--------+ + + + + documented as of this encounter Visit Diagnoses Not on filedocumented in this encounter"
--- OUTSIDE RECORDS SUMMARY | ~2019-05-30 | XMS | Encounter Summary ---
Demographics + + + | Address | [address] | | | [place] [address] | + + + | Home Phone | | + + + | Preferred Language | Unknown | + + + | Marital Status | | + + + | Church Affiliation | 1041 | + + + | Race | Unknown | + + + | Ethnic Group | Unknown | + + + Author + + + | Author | [facility] | | | and [place] | + + + | Organization | [facility] | | | and [...] Team Providers + +------+ + | Care Sugar House Supervisor Name | Role | Phone | + +------+ + PCP | Unavailable | + +------+ + Encounter Details +--------+ + + + + | Date | Type | Department | Care Team | Description | +--------+ + + + + | 03/27/ | Hospital | [facility] | Arthur Childers | Fitting and | | 2009 | Encounter | [facility] | MD [address] | adjustment of | | | | CLINICAL DECISION | [address], | automatic | | | | [address] | [place] [address] | implantable cardiac | | | | [place], [place] | [phone] | defibrillator | | | | [address] | | | | | | [phone] | | | +--------+ + + + [...] | | | | | [place] [address] | | | | | | [phone] | | | | | | | | +--------+ + + + + | 06/12/ | Office | Cardiology | Barak Caba | | | 2019 | Visit | | [address] | | | | | | [address] | | | | | | [place] | | | | | | [phone] | | | | | | | | +--------+ + + + + | 06/12/ | Procedure | Cardiology | | | | 2019 | visit | | | | +--------+ + + + + | 06/29/ | Office | Pulmonology | Zheng Saravia | | 2019 | Visit | | Eddie Bowden MD [address] | | | | | | [address] | | | | | | [place] [address] | | | | | | [phone] | | | | | | | | +--------+ + + + + | 09/10/ | Procedure | Cardiology | | | | 2019 | visit | | | | +--------+ + + + + documented as of this encounter Visit Diagnoses + + | Diagnosis | + + | Fitting and adjustment of automatic implantable cardiac defibrillator | + + documented in this encounter"
--- OUTSIDE RECORDS SUMMARY | ~2019-05-30 | XMS | Encounter Summary ---
Demographics + + + | Address | [address] | | | [place] [address] | + + + | Home Phone | | + + + | Preferred Language | Unknown | + + + | Marital Status | | + + + | Presybeterian Affiliation | 1041 | + + + [...] Team Providers + +------+ + | Care Greeter Guest Services Name | Role | Phone | + +------+ + | Roxana Barajas PA-C | PCP | | + +------+ + Encounter Details +--------+ + + + + | Date | Type | Department | Care Team | Description | +--------+ + + + + | 03/27/ | Orders Only | [facility] | Arthur Childers | | | 2009 | | [facility] | MD [address] | | | | | CLINICAL LABORATORY | [address], | | | | | [address] | [place] [address] | | | | | [place], [place] | [phone] | | | | | [address] | | | | | | [phone] | | | +--------+ + + + [...] | | | | | [place] [address] | | | | | | [phone] | | | | | | | | +--------+ + + + + | 06/12/ | Office | Cardiology | Barak Caba | | | 2019 | Visit | | [address] | | | | | | [address] [facility] | | | | | | [place] | | | | | | [address] | | | | | | | | +--------+ + + + + | 06/12/ | Procedure | Cardiology | | | | 2019 | visit | | | | +--------+ + + + + | 06/29/ | Office | Pulmonology | RaniZheng beltran | | | 2019 | Visit | | Eddie Bowden MD [address] | | | | | | [address] | | | | | | [place] [address] | | | | | | [phone] | | | | | | | [...] + + + | MRSA NAAT | Timed | 03/27/2010 | | Results for this | | | | 9:00 AM | | procedure are in the | | | | PST | | results section. | + +--------+ + + + documented in this encounter Results MRSA NAAT (03/27/2010 9:00 AM PST) + + | Specimen | + + | | + + + + + | Narrative | Performed At | + + + | [facility] | EXTERNAL LAB | | Testing performed at [facility];[address] [place] [address];[place] [address] MRSA PCR | | | NEGATIVE Testing performed at | | | [facility];[address] [place] [address];[place] [address] | | + + + + +---------+ + + | Performing | Address | City/State/Zipcode | Phone Number | | Organization | | | | + +---------+ + + | EXTERNAL LAB | | | | + +---------+ + + documented in this encounter Visit Diagnoses Not on filedocumented in this encounter"
--- OUTSIDE RECORDS SUMMARY | ~2019-05-30 | XMS | Encounter Summary ---
Demographics + + + | Address | [address] | | | [place] [address] | + + + | Home Phone | | + + + | Preferred Language | Unknown | + + + | Marital Status | | + + + | Taoist Affiliation | 1041 | + + + | Race | Unknown | + + + | Ethnic Group | Unknown | + + + Author + + + | Author | [facility] | | | and [place] | + + + | Organization | [facility] | | | and [...] Team Providers + +------+ + | Care Cartographic Aide Name | Role | Phone | + +------+ + | Pcp, Prov Inactive | PCP | | + +------+ + Encounter Details +--------+ + + + + | Date | Type | Department | Care Team | Description | +--------+ + + + + | 12/16/ | Orders Only | [facility] | Zheng Saravia | | | 2019 | | [address] | Eddie Bowden MD [address] | | | | | [place], [place] | [address] | | | | | [address] | [place] [address] | | | | | [phone] | [phone] | | | | | | | [...] | | | | | [place] [address] | | | | | | [phone] | | | | | | | | +--------+ + + + + | 06/12/ | Office | Cardiology | Barak Caba | | | 2019 | Visit | | [address] | | | | | | [address] | | | | | | [place] | | | | | | [address] | | | | | | | [...] [address] | | | | | | [place] [address] | | | | | | [phone] | | | | | | | [...] +--------+ + + + | EXTERNAL LAB: [facility] | Routin | 12/16/2018 | | Results for this | | | e | 10:42 AM | | procedure are in the | | | | PDT | | results section. | + +--------+ + + + documented in this encounter Results External Lab: [facility] (12/16/2018 10:42 AM PDT) + + + + + + | Component | Value | Ref Range | Performed | Pathologist | | | | | At | Signature | + + + + + + | WBC | 8.75 | 3.80 - 11.00 | EXTERNAL | | | | | 10*3/uL | LAB | | + + + + + + | RED CELL | 3.90 | 3.70 - 5.10 | EXTERNAL | | | COUNT | | 10*6/uL | LAB | | + + + + + + | Hgb | 13.4 | 11.3 - 15.5 | EXTERNAL | | | | | g/dL | LAB | | + + + + + + | Hematocrit, | 39.0 | 34.0 - 46.0 % | EXTERNAL | | | POC | | | LAB | | + + + + + + | MCV | 100.1 (H) | 80.0 - 100.0 fL | EXTERNAL | | | | | [...] + + + + | RDW-CV | 48.1 | 37 - 53 fL | EXTERNAL | | | | | | LAB | | + + + + + + | Platelet | 183 | 150 - 400 | EXTERNAL | | | Count | | 10*3/uL | LAB | | | Plasma | | | | | + + + + + + | MPV | 8.5 | fL | EXTERNAL | | | | | | LAB | | + + + + + + | Differentia | AUTOMATED | | EXTERNAL | | | l Type | | | LAB | | + + + + + + | % Segmented | 75.40 | % | EXTERNAL | | | | | | LAB | | | Neutrophils | | | | | + + + + + + | % | 15.41 | % | EXTERNAL | | | Lymphocytes | | | LAB | | + + + + + + | % Monocytes | 6.76 | % | EXTERNAL | | | | | | LAB | | + + + + + + | % | 1.85 | % | EXTERNAL | | | Eosinophils | | | LAB | | + + + + + + | % Basophils | 0.58 | % | EXTERNAL | | | | | | LAB | | + + + + + + | Absolute | 6.60 | 1.90 - 7.40 | EXTERNAL | | | Segmented | | 10*3/uL | LAB | | | Neutrophils | | | | | + + + + + + | Absolute | 1.35 | 1.00 - 3.90 | EXTERNAL | | | Lymphocytes | | 10*3/uL | LAB | | + + + + + + | Absolute | 0.59 | 0.00 - 0.80 | EXTERNAL | | | Monocytes | | 10*3/uL | LAB | | + + + + + + | Absolute | 0.16 | 0.00 - 0.50 | EXTERNAL | | | Eosinophils | | 10*3/uL | LAB | | + + + + + + | Absolute | 0.05 | 0.00 - 0.10 | EXTERNAL | | | Basophils | | 10*3/uL | LAB | | + + + [...]
--- OUTSIDE RECORDS SUMMARY | ~2019-05-30 | XMS | Encounter Summary ---
Demographics + + + | Address | [address] | | | [place] [address] | + + + | Home Phone | | + + + | Preferred Language | Unknown | + + + | Marital Status | | + + + | Confucianism Affiliation | 1041 | + + + | Race | Unknown | + + + | Ethnic Group | Unknown | + + + Author + + + | Author | [facility] | | | and [place] | + + + | Organization | [facility] | | | and [...] Team Providers + +------+ + | Care Sales Performance Analyst Name | Role | Phone | + +------+ + | Roxana Barajas PA-C | PCP | | + +------+ + Reason for Visit + + + | Reason | Comments | + + + | Follow-up | PFT, cxr, labs | + + + Evaluate & Treat (Routine) +--------+--------+ + + + + | Status | Reason | Specialty | Diagnoses / | Referred By | Referred To | | | | | Procedures | Contact | Contact | +--------+--------+ + + + + | Closed | | | Diagnoses | | [place] | | | | | COPD | | Pulmonology | | | | | | | [address] | | | | | | | [address] | | | | | | | [place] | | | | | | | [address] | | | | | | | Phone: | | | | | | | [phone] | | | | | | | Fax: | | | | | | | [phone] | +--------+--------+ + + + + Encounter Details +--------+---------+ + + + | Date | Type | Department | Care Team | Description | +--------+---------+ + + + | 02/27/ | Office | [facility] | Zheng Saravia | Chronic obstructive | | 2019 | Visit | PULMONOLOGY [address] | Eddie Bowden MD [address] | pulmonary disease, | | | | [place] [address] | [place] | unspecified COPD | | | | [place], [place] | [place] [address] | type (HCC) (Primary | | | | [address] | [phone] | Dx); Personal | | | | [phone] | | history of tobacco | | | | | | use, presenting | | | | | | hazards to health | +--------+---------+ + + + Social History [...] + | Blood Pressure | 92/50 | 02/27/2019 12:35 PM | | | | | PDT | | + + + + + | Pulse | 67 | 02/27/2019 12:35 PM | | | | | PDT | | + + + + + | Temperature | 37.3 C (99.2 F) | 02/27/2019 12:35 PM | | | | | PDT | | + + + + + | Respiratory Rate | - | - | | + + + + + | Oxygen Saturation | 94% | 02/27/2019 12:35 PM | | | | | PDT | | + + + + + | Inhaled Oxygen | - | - | | | Concentration | | | | + + + + + | Weight | - | - | | + + + + + | Height | - | - | | + + + + + | Body Mass Index | - | - | | + + + + + documented in this encounter Progress Notes Zheng Saravia MD - 02/27/2019 12:30 PM PDTFormatting of this note might be dif ferent from the original. [facility] PULMONOLOGY [address] [place] [id number] HISTORY: Chief Complaint: I have been asked to assist in the pulmonary evaluation of Yuliana jarvis, 78 y.o. female, for COPD. History of Present Illness: Initial history: 12/16/18 Yuliana Galindo is an 78 y/o female [...] of them as her became i ll. Interval history: Yuliana is here for follow up for COPD. She was recently admitted at [facility] for an "acute bronchitis". She was treated with antibiotics and prednisone and sent home with pulm icort and formoterol nebulized. She was initially short of breath and coughing up phlegm he nce the admission but is now better. Currently denies cough, wheezing, nor dyspnea. She is back to using her Dulera. She has not needed her albuterol inh. She quit smoking for 2 we eks but unfortunately has restarted again. Review of Systems Constitutional: Negative. Negative for chills, fever and malaise/fatigue. HENT: Negative. Negative for congestion, sinus pain and sore throat. Eyes: Negative. Respiratory: Negative for cough, hemoptysis, sputum production, shortness of breath, wheezi ng and stridor. Cardiovascular: Negative. Negative for leg swelling. Gastrointestinal: Negative. Negative for abdominal pain, heartburn, nausea and vomiting. Genitourinary: Negative. Musculoskeletal: Negative. Skin: Negative. Neurological: Negative. Endo/Heme/Allergies: Negative. Negative for environmental allergies. All other systems reviewed and are negative. Past Medical History: Diagnosis Date Anxiety With panic attacks Asthma CHF (congestive heart failure) (HCC) chronic systolic heart failure, EF was 27% in the past, improved to 50-55% on echo 02/18/15 Community acquired pneumonia 2011 COPD (chronic obstructive pulmonary disease) ([facility]) h/o chronic bronchitis, long h/o tobacco abuse Coronary artery disease involving ione coronary artery s/p CABG x3 (SVG to LAD, SVG to RCA, SVG to OM3) 1994, s/p KERA to SVG to OM3 01/01 Diabetes mellitus type 2 in obese ([facility]) diet controlled History of syncope 2003 secondary to VT 2003, one recurrent episode remotely since her AICD was implanted. Hyperlipidemia Hypertension Ischemic dilated cardiomyopathy (HCC) EF was 27% on echo 08/01/03, improved to 50-55% on echo 02/18/15 [place] (myocardial infarction) 1993 Osteoarthritis Pulmonary embolism ([facility]) Pulmonary hypertension ([facility]) RVSP 58-63 on echo [...] "6 years" Tobacco abuse Ventricular tachycardia, paroxysmal ([facility]) 2003 with Syncope, + [...] PLACEMENT intial AICD 2003, generator change 03/27/11, [employer] Telogen E110, s# [id number]; R V Lead - Guidant 0184, s# [id number] (08/15/03); RA Lead - Guidant Fineline II EZ Sterox 4469, s # [id number] (08/15/03) COLONOSCOPY CORONARY ARTERY BYPASS GRAFT 1994 [...] EF 40-45%, mild MR, mild TR, tr MS, RVSP 58-63 Current Medications: Outpatient Medications acetaminophen (TYLENOL) 325 mg tablet Take 325 mg by mouth every 6 (six) hours as needed f or Pain. acetaminophen (TYLENOL) 325 mg tablet Take or use as needed. albuterol (VENTOLIN HFA) 90 mcg/puff inhaler 2 puffs four times daily as needed. allopurinol (ZYLOPRIM) 100 mg tablet Take 100 mg by mouth daily. aspirin 81 MG tablet Take 81 mg by mouth daily. Calcium Carb-Cholecalciferol (CALCIUM-VITAMIN D) 600-400 MG-UNIT TABS Take 1 tablet by madhu th 2 (two) times daily. calcium-vitamin D (CALCIUM + D) 250-125 MG-UNIT per tablet Take by mouth 2 times daily. cholecalciferol (CHOLECALCIFEROL) 1000 units TABS Take 1,000 Units by mouth daily. cyanocobalamin (VITAMIN B-12) 1000 MCG tablet Take [...] SOLN Take 1 tablet by mouth daily lisinopril (PRINIVIL, ZESTRIL) 10 mg tablet Take 1 tablet by mouth daily. lisinopril (PRINIVIL, ZESTRIL) 5 mg tablet Take 5 mg by mouth Daily. loratadine (CLARITIN) 10 mg tablet Take 10 mg by mouth Daily as needed. metoprolol succinate (TOPROL-XL) 25 mg 24 hr tablet Take 25 mg by mouth Daily. nitroglycerin (NITROSTAT) 0.[address] 1 tablet under the tongue every 5 (five) minutes as needed for Chest pain. PARoxetine [...] week, 4.5 mg three days a week. Allergies no known allergies Social History Socioeconomic History Marital status: Spouse name: Not on file Number of children: Not on file Years of education: Not on file Highest education level: Not on file Social Needs Financial resource strain: Not on file Food insecurity - worry: Not on file Food insecurity - inability: Not on file Transportation needs - medical: Not on file Transportation needs - non-medical: Not on file Occupational History Not on file Tobacco Use Smoking status: Heavy Tobacco Smoker Packs/day: 0.50 Tobacco comment: cut down to 0.5 ppd several weeks ago Substance and Sexual Activity Alcohol use: Not on file Drug use: Not on file Comment: Drug use: No Sexual activity: Not on file Other Topics Concern Not on file Social History Narrative Not on file Family History Problem Relation Age of Onset Coronary artery disease Mother 60 [place] Alzheimer's disease Brother Other (see comment) Brother Diabetes Mellitus II Thyroid disease Daughter PHYSICAL EXAMINATION: Vital Signs: There were no vitals filed for this visit. Weight: Wt Readings from Last 2 Encounters: 04/27/18 99.9 kg (220 lb 4.8 oz) 12/31/17 101.2 kg (223 lb 1.8 oz) .lastwt BMI: There is no height or weight on file to calculate BMI. Physical Exam Constitutional: She is well-developed, well-nourished, and in no distress. No distress. HENT: Head: Normocephalic. Mouth/Throat: Oropharynx is clear and moist. No oropharyngeal exudate. Eyes: Conjunctivae are normal. No scleral icterus. Neck: No tracheal deviation present. Cardiovascular: Normal rate, regular rhythm and normal heart sounds. No murmur heard. Pulmonary/Chest: Effort normal. No stridor. No respiratory distress. She has no wheezes. Sh e has no rales. Abdominal: Soft. She exhibits no distension. There is no tenderness. Musculoskeletal: She exhibits no edema. Lymphadenopathy: She has no cervical adenopathy. Neurological: She is alert. Skin: Skin is warm. No rash noted. She is not diaphoretic. No erythema. Vitals reviewed. LABORATORY EVALUATION: Diagnostic Studies: Available Labs and Images were reviewed personally. Significant resul ts and findings are addressed below or in the Assessment and Plan. PFT: 12/23/18 FEV1/FVC 0.78 FEV1 1.52L/90% FVC 1.95L/89% 12% improvement in FVC post BD TLC 4.11L/86% RV/TLC 0.78 DLCO 55% DL/VA 87% ASSESSMENT AND PLAN: A> 78 y.o. female smoker with COPD possibly with asthma overlap with h/o CAD s/p CABG and s tents, DM, HTN P> 1. COPD - reviewed PFT with the patient. FEV1/FVC ratio was normal but there was air trapping with an RV/TLC of 0.78 and reduced DLCO to 55%. As such, my impression is that this still repre sents COPD/asthma overlap. Her CXR from 12/23/18 showed mildly hyperinflated lungs. - she was recently admitted at [facility] with what sounds like a COPD exacerbation. She has improved already and breath sounds are clear - I recommended she continue with Dulera 200/5 2 puff BID and albuterol inh PRN. She was d ischarged also on nebulized pulmicort and formoterol. She can stop these as they are redund ant with Dulera. - reviewed IgE and allergy panel which were normal. - she had received her flu vaccine during her hospitalization. 2. Tobacco use - smokes 50 pack years. she restarted smoking after the hospitalization. I counseled her on the importance of smoking cessation. I advised her to set a quit date. She still has ni cotine patches at home which she can use. The patient will follow up with me in 4 months Zheng Saravia MD Pulmonary and Critical Care Medicine Located Within [facility] Pulmonology documented in this encounter Plan of Treatment [...] | | | | | [place] [address] | | | | | | [phone] | | | | | | | | +--------+ + + + + | 06/12/ | Office | Cardiology | Barak Caba | | | 2019 | Visit | | [address] | | | | | | [facility] | | | | | | [place] | | | | | | [phone] | | | | | | | [...] [address] | | | | | | [place] [address] | | | | | | [phone] | | | | | | | [...] (HCC) - Primary | + + | Personal history of tobacco use, presenting hazards to health | + + documented in this encounter
--- OUTSIDE RECORDS SUMMARY | ~2019-05-30 | XMS | Encounter Summary ---
Demographics + + + | Address | [address] | | | [place] [address] | + + + | Home Phone | | + + + | Preferred Language | Unknown | + + + | Marital Status | | + + + | Alevism Affiliation | 1041 | + + + | Race | Unknown | + + + | Ethnic Group | Unknown | + + + Author + + + | Author | [facility] | | | and [place] | + + + | Organization | [facility] | | | [...] Team Providers + +------+ + | Care Embedded Systems Developer Name | Role | Phone | + +------+ + PCP | Unavailable | + +------+ + Encounter Details +--------+ + + + + | Date | Type | Department | Care Team | Description | +--------+ + + + + | 03/31/ | Hospital | [facility] | Lydia Christensen | | | 2006 | Encounter | MED CTR EMERGENCY | MD [address] | | | | | CENTER [address] | [address] [place], | | | | | [place] | [place] [address] | | | | | [address] | [phone] | | | | | [phone] | | | +--------+ + + + [...] | | | | | | [place] [address] | | | | | | [phone] | | | | | | | | +--------+ + + + + | 06/12/ | Office | Cardiology | Barak Caba | | | 2019 | Visit | | [address] | | | | | | [address] | | | | | | [place] | | | | | | [phone] | | | | | | | | +--------+ + + + + | 06/12/ | Procedure | Cardiology | | | | 2019 | visit | | | | +--------+ + + + + | 06/29/ | Office | Pulmonology | Zheng Saravia | | | 2019 | Visit | | Eddie Bowden MD [address] | | | | | | [address] | | | | | | [place] [address] | | | | | | [phone] | | | | | | | | +--------+ + + + + | 09/10/ | Procedure | Cardiology | | | | 2019 | visit | | | | +--------+ + + + + documented as of this encounter Visit Diagnoses Not on filedocumented in this encounter"
--- OUTSIDE RECORDS SUMMARY | ~2019-05-30 | XMS | Encounter Summary ---
Demographics + + + | Address | [address] | | | [place] [address] | + + + | Home Phone | | + + + | Preferred Language | Unknown | + + + | Marital Status | | + + + | Jehovah'S Witness Affiliation | 1041 | + + + | Race | Unknown | + + + | Ethnic Group | Unknown | + + + Author + + + | Author | [facility] | | | and [place] | + + + | Organization | [facility] | | [...] Team Providers + +------+ + | Care Cessation Systems Outreach Specialist Name | Role | Phone | + +------+ + | Roxana Barajas PA-C | PCP | | + +------+ + Encounter Details +--------+ + + + + | Date | Type | Department | Care Team | Description | +--------+ + + + + | 05/25/ | Imaging | [facility] | Provider, | | | 2020 | Exam | MED [facility] EXTERNAL | [address] | | | | | IMAGING | [address] | | | | | [phone] | [place] [address] | | +--------+ + + + + [...] Surgery | Manuel Wesley | | | 2020 | Visit | | [address] | | | | | | [address] | | | | | | [place] [address] | | | | | | [phone] | | | | | | | | +--------+ + + + + | 06/12/ | Office | Cardiology | Barak Caba | | | 2019 | Visit | | [address] | | | | | | [address] | | | | | | [place] | | | | | | [address] | | | | | | | [...] E | | | | | | [place] [address] | | | | | | [phone] | | | | | | | [...] + +--------+ + + + | XR HIP LEFT 2-3 | Routin | 05/12/2019 | | Results for this | | VIEWS | e | 12:00 AM | | procedure are in the | | | | PST | | results section. | + +--------+ + + + documented in this encounter Results XR Hip Left 2-3 Views (05/12/2019 12:00 AM PST) + + | Specimen | + + | | + + + + + | Narrative | Performed At | + + + | External films for comparison only | [facility] | | | | | No results will be in the chart. | | + + + + +---------+ + + | Performing | Address | City/State/Zipcode | Phone Number | | Organization | | | | + +---------+ + + | [facility] | | | | + +---------+ + + documented in this encounter Visit Diagnoses Not on filedocumented in this encounter"
--- OUTSIDE RECORDS SUMMARY | ~2019-05-30 | XMS | Encounter Summary ---
Demographics + + + | Address | [address] | | | [place] [address] | + + + | Home Phone | | + + + | Preferred Language | Unknown | + + + | Marital Status | | + + + | Jainism Affiliation | 1041 | + + + | Race | Unknown | + + + | Ethnic Group | Unknown | + + + Author + + + | Author | [facility] | | | and [place] | + + + | Organization | [facility] | | | and [place] | + + + | Address | Unknown | + + + | Phone | Unavailable | + + + Support + + +---------+ + | Name | Relationship | Address | Phone | + + +---------+ + | Kamila Jackson | ECON | Unknown | | + + +---------+ + | Martha Boroksman | ECON | Unknown | | + + +---------+ + Care Team Providers + +------+ + | Care Gas Engine Operator Generators Name | Role | Phone | + +------+ + | Roxana Barajas PA-C | PCP | | + +------+ + Reason for Visit + + + | Reason | Comments | + + + | Medication Question | | + + + Encounter Details +--------+ + + + + | Date | Type | Department | Care Team | Description | +--------+ + + + + | 05/29/ | Telephone | [facility] | Zheng Saravia | Medication Question | | 2020 | | PULMONOLOGY [address] | Eddie Bowden MD [address] | | | | | [place] | [address] | | | | | [place], [place] | [place] [address] | | | | | [address] | [phone] | | | | | [phone] | | | +--------+ + + + [...] | | | | | [place] [address] | | | | | | [phone] | | | | | | | [...] | | | | | [place] [address] | | | | | | [phone] | | | | | | | | +--------+ + + + + | 09/10/ | Procedure | Cardiology | | | | 2019 | visit | | | | +--------+ + + + + documented as of this encounter Visit Diagnoses Not on filedocumented in this encounter"
--- OUTSIDE RECORDS SUMMARY | ~2019-05-30 | XMS | Encounter Summary ---
Demographics + + + | Address | [address] | | | [place] [address] | + + + | Home Phone | | + + + | Preferred Language | Unknown | + + + | Marital Status | | + + + | Confucianist Affiliation | 1041 | + + + | Race | Unknown | + + + | Ethnic Group | Unknown | + + + Author + + + | Author | [facility] | | | and [place] | + + + | Organization | [facility] | | | and [...] Team Providers + +------+ + | Care Supervisor Powder And Primer Canning Name | Role | Phone | + +------+ + PCP | Unavailable | + +------+ + Encounter Details +--------+ + + + + | Date | Type | Department | Care Team | Description | +--------+ + + + + | 01/27/ | [facility] | [facility] | | | | 2006 | Encounter | MED CTR LABORATORY | | | | | | [address] | | | | | | [place] | | | | | | [address] | | | | | | [phone] | | | +--------+ + + + [...] [address] | | | | | | [place] [address] | | | | | | [phone] | | | | | | | | +--------+ + + + + | 06/12/ | Office | Cardiology | Barak Caba | | | 2019 | Visit | | [address] | | | | | | [address] | | | | | | [place] | | | | | | [address] | | | | | | | [...] | | | | | [place] [address] | | | | | | [phone] | | | | | | | | +--------+ + + + + | 09/10/ | Procedure | Cardiology | | | | 2020 | visit | | | | +--------+ + + + + documented as of this encounter Visit Diagnoses Not on filedocumented in this encounter"
--- OUTSIDE RECORDS SUMMARY | ~2019-05-30 | XMS | Encounter Summary ---
Demographics + + + | Address | [address] | | | [place] [address] | + + + | Home Phone | | + + + | Preferred Language | Unknown | + + + | Marital Status | | + + + | Druze Affiliation | 1041 | + + + | Race | Unknown | + + + | Ethnic Group | Unknown | + + + Author + + + | Author | [facility] | | | and [place] | + + + | Organization | [facility] | | | and [...] Team Providers + +------+ + | Care Rn Iv Therapy Name | Role | Phone | + +------+ + | Pcp, Prov Inactive | PCP | | + +------+ + Encounter Details +--------+ + + + + | Date | Type | Department | Care Team | Description | +--------+ + + + + | 01/09/ | Hospital | [facility] | Conversion | Pain | | 2018 | Encounter | CONVERSION [address] | Transaction, | | | | | [address] | Provider Unknown | | | | | | [phone] | | | | | [address] | | | | | | [phone] | | | +--------+ + + + [...] | | | | | [place] [address] | | | | | | [phone] | | | | | | | | +--------+ + + + + | 06/12/ | Office | Cardiology | Barak Caba | | | 2019 | Visit | | [address] | | | | | | [address] | | | | | | [place] | | | | | | [address] | | | | | | | [...] | | | | | [place] [address] | | | | | | [phone] | | | | | | | [...] | + + | Akshat Olson - 12/28/2018 5:54 AM PDT This is a non-reportable procedure | | without a radiologist report and isused for image storage only | + + documented in this encounter Visit Diagnoses + + | Diagnosis | + + | Pain Generalized pain | + + documented in this encounter"
--- OUTSIDE RECORDS SUMMARY | ~2019-05-30 | XMS | Encounter Summary ---
Demographics + + + | Address | [address] | | | [place] [address] | + + + | Home Phone | | + + + | Preferred Language | Unknown | + + + | Marital Status | | + + + | Hoahaoism Affiliation | 1041 | + + + [...] Team Providers + +------+ + | Care Chain Maker Loom Control Name | Role | Phone | + +------+ + | Pcp, Prov Inactive | PCP | | + +------+ + Encounter Details +--------+ + + + + | Date | Type | Department | Care Team | Description | +--------+ + + + + | 12/26/ | Hospital | [facility] | Pasha Buck | Pain; S/P drug | | 2018 - | Encounter | [facility] | MD Timur [address] | eluting coronary | | | | CARE FLOOR [address] [place], [place] | stent placement; | | 12/31/ | | [address] | [id number] | NSTEMI (non-ST | | 2018 | | [place], [place] | | elevated myocardial | | | | [address] | | infarction) ([facility]) | | | | [phone] | | | +--------+ + + + [...] 1609 Date of Service: 12/31/17911 Status: Signed Architecture Intern: Francesco Edmonds MD (Physician) Patient: Yuliana Humphreys [...] was walking. She wa s transferred to [facility] due to possible NSTEMI. She underwent angiogram on 12/27 and 2 stents were placed in the vein graft to 3. Subsequently she was encephalopathic with tachypnea a [...] 33.92 kg/m I&O Last 3 Shifts: 12/29 1899 - 12/31 0659 In: 1805 [P.O.:1805] Out: [...] given situation. Recent Labs Recent Labs Lab 12/31/177 12/30/17 0440 12/29/17 0513 WBC 11.37* 11.08* [...] Discharge Information: Follow up: Tres Beltran [place] [address] Schedule an appointment as soon as possible for a visit in 10 days hospital follow up. NSTEMI Roxana Barajas PA-C [address] [place] [address] Schedule an appointment as soon as possible [...] four days a | | 0 | 09/13/20 | | | (COUMADIN) 3 MG | [...] Service: (none) Author Type: Registered Nurse Filed: 12/31/171702 Date of Service: 12/31/171701 Status: Signed Architecture Intern: Pamela Wagner RN (Registered Nurse) Patient and daughter received discharge instructions, and Rx. All questions answered, and a ll belongings sent with patient, belongings check list is complete. All patient VS are stabl e, patient is afebrile and denies SOB, CP or N/V. PIV x 2 removed, home oxygen with patient. Patient wheeled out in wheelchair by [facility] escort to personal vehicle, discharged home wit h daughter. Pamela Wagner RN onver darnell Transaction, Provider Unknown - 12/31/2017 10:14 AM PDT Case Management by Wandy Gong RN at 12/31/17 1014 Author: Wandy Gong RN Service: (none) Author Type: Registered Nurse Filed: 12/31/17 1054 Date of Service: 12/31/17 1014 Status: Addendum Architecture Intern: Wandy Gong RN (Registered Nurse) Related Notes: Original Note by Wandy Gong RN (Registered Nurse) filed at 12/31/17 101 5 Pt to d/c home today. Pt will return home with caregivers/family. Family to transport Per [facility], they will deliver a portable tank to room today. Per [facility], they will accept pt Wednesday. Faxed AVS Notified Kell with [facility] of d/c plan, no questions Rita onver darnell Transaction, Provider Unknown - 12/31/2017 5:39 AM PDT Nurse Progress Note by Aishwarya Marr RN at 12/31/17 0539 Author: Aishwarya Marr RN Service: (none) Author Type: Registered Nurse Filed: 12/31/17 0541 Date of Service: 12/31/17 0539 Status: Signed Architecture Intern: Aishwarya Marr RN (Registered Nurse) Pt rested [...] 12/30/171807 Date of Service: 12/30/171805 Status: Signed Architecture Intern: Pamela Wagner RN (Registered Nurse) Patient had [...] PM PDT Therapy Progress Note by Parmjit Hernandez PT at 12/30/171728 Author: Parmjit Hernandez PT Service: (none) Author Type: Physical Therapist Filed: 12/30/171851 Date of Service: 12/30/171728 Status: Signed Architecture Intern: Parmjit Hernandez PT (Physical Therapist) PHYSICAL THERAPY TREATMENT NOTE PT Received On: 12/30/17 Reason for Treatment: Deconditioning Requires PT Follow Up: PT tech Follow up PT Only?: No Assistance Required: 1 person Mural Painter Needed: No Recommendations: Home Assist, PT PT [...] [] No evidence of learning [] Refused Francesco Hardy i, MD - 12/30/2017 3:44 PM PDTFormatting of this note might be different from the o riginal. Progress Notes by Francesco Edmonds MD at 12/30/17 1544 Author: Francesco Edmonds MD Service: Hospitalist Author Type: Physician Filed: 12/30/17 1547 Date of Service: 12/30/171543 Status: Signed Architecture Intern: Francesco Edmonds MD (Physician) [facility] Service: Hospitalist Progress Note Pt: Yuliana Humphreys AGE/SEX: 77 y.o. female ROOM: [address] [place] [address] : 1940 PCP: Roxana Barajas ADMIT DATE: [...] (2003), HTN, current smoker, who presented to [facility] in [facility] to midsternal chest pain that started when she went for a walk. The pain radiated to her L shoulder and she became nauseous and diaphoretic. The patient had similar episodes when she had her CABG in 1994. EKG was done at [place] which revealed non-specific ST-T changes (no previous EKG to compare). She had borderline troponin elevation and was transferred to [facility] for cardiology services on heparin gtt. The [...] the ICU. ICU Timeline: 12/27- transferred from laborer general to ICU for decreased LOC following sedation [...] Behavior is normal. LABS: Recent Labs Lab 12/30/170 12/29/17 0513 12/28/17 075 WBC 11.08* 10.56 10.84 HGB 12.3 12.4 12.7 HCT 35.6 36.1 38.4 PLT 157 157 149* NEUTOPHILPCT 74.39 76.15 81.66 MONOPCT 8.94 8.46 8.85 Recent Labs Lab 12/30/17 0440 12/29/17 0513 12/28/17 0759 12/27/17 0458 NA 141 140 139 [...] Principal Problem: NSTEMI (non-ST elevated myocardial infarction) ([facility]) Active Problems: S/P CABG x 4 Ischemic dilated cardiomyopathy ([facility]) Cardiac defibrillator in situ Hypertension Morbid obesity ([facility]) Tobacco use disorder Acute metabolic encephalopathy Acute respiratory failure with hypoxia and hypercapnia ([facility]) Pulmonary edema cardiac cause ([facility]) ASSESSMENT & PLAN NSTEMI - patient underwent [...] and managing patient and counseling/coordination. Dictation software, Pantheon, used which may contain error for similar [...] Date of Service: 12/30/17 1210 Status: Addendum Architecture Intern: Wandy Gong RN (Registered Nurse) Related Notes: Original Note by Wandy Gong RN (Registered Nurse) filed at 12/30/17 122 3 Pt needing home O2, she has selected [facility]. Notified [facility], radha gardner will start process, faxed script. PT recommending HH services, pt wants [facility]. Referral sent. F2F referral in AVS Tentative d/c is Wednesday Tc to BASHIR Castorena with [facility] re d/c plan, Rita onver darnell Transaction, Provider Unknown - 12/30/2017 11:26 AM PDT Progress Notes by Dasha Yun CRT at 12/30/17 1126 Author: Dasha Yun CRT Service: (none) Author Type: Certified Respiratory The rapist Filed: 12/30/17 112 Date of Service: 12/30/17 112 Status: Signed Architecture Intern: Dasha Yun CRT (Certified Respiratory Therapist) [facility] Department of Respiratory Snf Oxygen Evaluation (Evaluation [...] Registered Nurse Filed: 12/30/17431 Date of Service: 12/30/17431 Status: Signed Architecture Intern: Merlene Vieira RN (Registered Nurse) Chart check complete. onver darnell Transaction, Provider Unknown - 12/29/2017 5:39 PM PDT Nurse Progress Note by Pamela Wagner RN at 12/29/171738 Author: Pamela Wagner RN Service: (none) Author Type: Registered Nurse Filed: 12/29/171746 Date of Service: 12/29/171738 Status: Addendum Architecture Intern: Pamela Wagner RN (Registered Nurse) Related Notes: [...] Notes by Tres Beltran MD at 12/29/17 170 Author: Tres Beltran MD Service: (none) Author Type: Physician Filed: 12/30/17 162 Date of Service: 12/29/171705 Status: Signed Architecture Intern: Ters Beltran MD (Physician) Related Notes: Original Note by Tres Beltran MD (Physician) filed at 12/29/17 1712 [facility] Service: Cardiology Progress Note SUBJECTIVE Currently she [...] Mild LV dysfunction, ejection fraction 40-45%. 8. Kdiskmyt-vi-xwjhjz pulmonary hypertension without significant valvular disease. 9. Obesity. PLAN: Continue with her current regimen, including aspirin and Plavix, aggressive pulmonar y toilet, and aerosols for her COPD. Careful diuresis is needed. RTES BELTRAN MD 12/29/2017 onversion Transacti on, Provider Unknown - 12/29/2017 12:37 PM PDTFormatting of this note might be different fro m the original. Case Management by Wandy Gong RN at 12/29/17 3899 Author: Wandy Gong RN Service: (none) Author Type: Registered Nurse Filed: 12/29/17 0116 Date of Service: 12/29/17 6205 Status: Signed Architecture Intern: Wandy Gong RN (Registered Nurse) Met with pt and daughter Cierra re d/ c planning. Pt resides in [place], uses [employer] and has a state paid caregiver. Pt states she plans to return home and no needs are expressed at thi s time. [phone] re d/c plan. Family to transport back [facility] Francesco Hardy i, MD - 12/29/2017 12:37 PM PDTFormatting of this note might be different from the o riginal. Progress Notes by Francesco Edmonds MD at 12/29/17 1237 Author: Francesco Edmonds MD Service: Hospitalist Author Type: Physician Filed: 12/29/17 1244 Date of Service: 12/29/171236 Status: Signed Architecture Intern: Francesco Edmonds MD (Physician) [facility] Service: Hospitalist Progress Note Pt: Yuliana Humphreys AGE/SEX: 77 y.o. female ROOM: [address] [place] [address] : 1940 PCP: Roxana Barajas ADMIT DATE: [...] (2003), HTN, current smoker, who presented to [facility] in [facility] to midsternal chest pain that started when she went for a walk. The pain radiated to her L shoulder and she became nauseous and diaphoretic. The patient had similar episodes when she had her CABG in 1994. EKG was done at [place] which revealed non-specific ST-T changes (no previous EKG to compare). She had borderline troponin elevation and was transferred to [facility] for cardiology services on heparin gtt. The [...] the ICU. ICU Timeline: 12/27- transferred from laborer general to ICU for decreased LOC following sedation [...] Behavior is normal. LABS: Recent Labs Lab 12/29/17 0513 12/28/17 0759 12/27/17 1035 12/27/17 0458 WBC 10.56 [...] Component Value Units Date/Time MRSA by PCR [[id number]] Collected: 12/27/17 1133 Specimen: Nasopharyngeal from Nares(Nose) [...] Principal Problem: NSTEMI (non-ST elevated myocardial infarction) ([facility]) Active Problems: S/P CABG x 4 Ischemic dilated cardiomyopathy ([facility]) Cardiac defibrillator in situ Hypertension Morbid obesity ([facility]) Tobacco use disorder Acute metabolic encephalopathy Acute respiratory failure with hypoxia and hypercapnia ([facility]) Pulmonary edema cardiac cause ([facility]) ASSESSMENT & PLAN NSTEMI - patient underwent [...] and managing patient and counseling/coordination. Dictation software, Pantheon, used which may contain error for similar [...] Progress Note by Merlene Vieira RN at 12/29/17650 Author: Merlene Vieira RN Service: (none) Author Type: Registered Nurse Filed: 12/29/17650 Date of Service: 12/29/17650 Status: Signed Architecture Intern: Merlene Vieira RN (Registered Nurse) No acute events overnight, VSS, no c/o chest pain. onver darnell Transaction, Provider Unknown - 12/29/2017 3:24 AM PDT Nurse Progress Note by Merlene Vieira RN at 12/29/17323 Author: Merlene Vieira RN Service: (none) Author Type: Registered Nurse Filed: 12/29/175 Date of Service: 12/29/17323 Status: Signed Architecture Intern: Merlene Vieira RN (Registered Nurse) 12hr chart check complete. onver darnell Transaction, Provider Unknown - 12/28/2017 5:48 PM PDT Nurse Progress Note by Johnson Ames RN at 12/28/171747 Author: Johnson Ames RN Service: (none) Author Type: Registered Nurse Filed: 12/28/17 175 Date of Service: 12/28/171747 Status: Signed Architecture Intern: Johnson Aems RN (Registered Nurse) PT transfer to [facility] at 1500 in stable condition. New pure [...] Author: ESTER Rice Service: (none) Author Type: Stucco Worker Filed: 12/28/17 1541 Date of Service: 12/28/17 153 Status: Signed Architecture Intern: ESTER Rice (Stucco Worker) 12/28/17 1521 Discharge Planning Evaluation Admitting Diagnosis [...] [place] Relationship to Patient Caregiver Phone number [phone] Mental Status Unable to answer questions (Pt was asleep) Power of Weaving Professor No Resources Financial concerns No Transportation issues No (Pt can drive, but not often. However, her caregiver and daughter will pick pt up from the hospital. ) Patient/Family concerns [place] [facility] Anticipated Disposition Facility Type Home Met with Yuliana Humphreys and discussed discharge planning. However, pt was asleep sp assessm ent was done over the phone with pt's daughter, Cierra Higgins ([phone]). Pt is a 77 y .o., female who resides with her daughter (Cierra), Cierra's boyfriend, and Cierra's 23 year old son. Pt resides at: [address] [place] [address], [place] [facility]. Pt does not have to w alk up any steps to get into the house, there is a ramp. Pt's daughter reports good family and friend support. Pt's daughter states that she helps her mom with cooking, cleaning, etc. Patient's PCP is: Duc Person at [facility] Pt's daughter states that she is independent with mobility. However, if pt is walking a dis tance or traveling, she will use a cane. Pt's daughter states that pt does not use home oxygen. Pt has not received previous outpatient services. Pt is not currently on any blood thinners. Patient's insurance: Medicaid, Medicare, and [facility] insurance Coverage concerns: No Medication coverage/concerns: No Rx Bedside Delivery: [facility] utilized / needed: Pt receives caregiving hours through [facility] [employer] [facility] in [place]. Pt's spring encaser is Melly Harris [phone]. Pt's ca regiver is Martha Lan ([phone]). Pt's daughter states that she gets around 18 hour s a week of caregiving services. Assistance in transportation: Pt can drive a small amount. However, her caregiver helps wit h transportation Identification of any specific education / training: TBD Barriers to Discharge / Alternative housing needed: TBD Anticipated DCP: Home Pt does not have an Advanced Directive or a Power of Weaving Professor. Paperwork should be given to family (pt was transferred from ICU prior to receiving paperwork). ESTER Rice onver darnell Transaction, Provider Unknown - 12/28/2017 2:16 PM PDT Nurse Progress Note by Johnson Ames RN at 12/28/17 2852 Author: Johnson Ames RN Service: (none) Author Type: Registered Nurse Filed: 12/28/17 1416 Date of Service: 12/28/17 1416 Status: Signed Architecture Intern: Johnson Ames, RN (Registered Nurse) Report received from Leticia DIRECTOR OF STRATEGIC MARKETING. PT transferred to [facility] in stable condition. onver darnell Transaction, Provider Unknown - 12/28/2017 12:23 PM PDT Case Management by ESTER Cota at 12/28/17 1223 Author: ESTER Cota Service: (none) Author Type: Stucco Worker Filed: 12/28/17 1225 Date of Service: 12/28/17 1223 Status: Signed Architecture Intern: ESTER Cota (Stucco Worker) Spoke with Kell from [facility]. Informed that pt has not yet been assessed. She is reque sting that the discharging CM call her to notify of any d/c needs and give an update regardi ng d/c plan. Kell- [phone] onver darnell Transaction, Provider Unknown - 12/28/2017 10:51 AM PDT Case Management by ESTER Rice at 12/28/17 1051 Author: ESTER Rice Service: (none) Author Type: Stucco Worker Filed: 12/28/17 1058 Date of Service: 12/28/17 1051 Status: Signed Architecture Intern: ESTER Rice (Stucco Worker) CM attended morning rounds. Pt is in the ICU for NSTEMI. Pt is awake and alert. Pt is on 3 liters of nasal cannula. Pt is currently NPO. Plan is to transfer pt out of ICU today. CM will assess today. ESTER Rice Sherly Shannon DO - 12/28/2017 4:06 AM PDT Progress Notes by Sherly Coppola DO at 12/28/17405 Author: Sherly Coppola DO Service: Manager Location Author Type: Physician Filed: 12/28/17 0624 Date of Service: 12/28/17405 Status: Signed Architecture Intern: Sherly Coppola DO (Physician) [facility] Service: Manager Location Progress Note Yuliana Humphreys 77 y.o. Hospital Day: LOS: 2 days Post-Op Day: * No surgery found * Consulting Physicians Treatment Team: Consulting Physician: Nash Genao MD Consulting Physician: Yvette Morris MD Admitting Provider: Pasha Buck MD SUBJECTIVE Patient Summary: From Sandrita Jonniedolores's 12/27/17 Consult Note: The patient is a 77 y.o. female with significant past medical history of CAD s/p CABG x3, i schemic dilated cardiomyopathy (last EF 50-55% 02/28), HTN, paroxysmal vtach s/p AICD placem ent (2003), HTN, current smoker, who presented to [facility] in [place] due to midsternal chest pain that started when she went for a walk. The pain radiated to her L shou lder and she became nauseous and diaphoretic. The patient had similar episodes when she had her CABG in 1994. EKG was done at [place] which revealed non-specific ST-T changes (no pre vious EKG to compare). She had borderline troponin elevation and was transferred to [facility] for cardiology services on heparin gtt. The [...] the ICU. ICU Timeline: 12/27- transferred from laborer general to ICU for decreased LOC following sedation [...] Principal Problem: NSTEMI (non-ST elevated myocardial infarction) ([facility]) Active Problems: S/P CABG x 4 Ischemic [...] Lasix post proc edure. Current smoker - counselor nurses' association regarding smoking cessation COPD/asthma: cont scheduled Combivent, [...] Service: (none) Author Type: Registered Nurse Filed: 12/27/171738 Date of Service: 12/27/171738 Status: Signed Architecture Intern: Melyssa Harley RN (Registered Nurse) End of shift chart review completed onver darnell Transaction, Provider Unknown - 12/27/2017 5:00 PM PDT Progress Notes by Melyssa Harley RN at 12/27/17 1700 Author: Melyssa Harley RN Service: (none) Author Type: Registered Nurse Filed: 12/27/17 7475 Date of Service: 12/27/171699 Status: Signed Architecture Intern: Melyssa Harley RN (Registered Nurse) Pt unable to ambulate at this time due to respiratory status. Pt is moving/bending right le g often and right groin continues unchanged onver darnell Transaction, Provider Unknown - 12/27/2017 4:35 PM PDT Progress Notes by Herbert Mayorga RRT at 12/27/17 1635 Author: Herbert Mayorga RRT Service: (none) Author Type: Registered Respiratory Therap ist Filed: 12/27/171925 Date of Service: 12/27/17 1635 Status: Addendum Architecture Intern: Herbert Mayorga RRT (Registered Respiratory Therapist) Related [...] Case Management by ESTER Cota at 12/27/17 1415 Author: ESTER Cota Service: (none) Author Type: Stucco Worker Filed: 12/27/17 1417 Date of Service: 12/27/17 1415 Status: Signed Architecture Intern: ESTER Cota (Stucco Worker) Received message to call Kell Amaro to discuss d/c planning. Pt was just admitt ed to the ICU. I plan to complete an assessment either today or tomorrow. Called Kell rhodes and left a VM requesting a return call. Kell- [phone] onver darnell Transaction, Provider Unknown - 12/27/2017 11:23 AM PDT Case Management by Wandy Gong RN at 12/27/17 1123 Author: Wandy Gong RN Service: (none) Author Type: Registered Nurse Filed: 12/27/17 1123 Date of Service: 12/27/17 1123 Status: Signed Architecture Intern: Wandy Gong RN (Registered Nurse) 12/27/17 1100 [...] Date of Service: 12/27/17 1115 Status: Signed Architecture Intern: Melyssa Harley RN (Registered Nurse) Per Dr. Israel Rhodes tko NS due to fluid overload onver darnell Transaction, Provider Unknown - 12/27/2017 11:01 AM PDT Progress Notes by Melyssa Harley RN at 12/27/17 110 Author: Melyssa Harley RN Service: (none) Author Type: Registered Nurse Filed: 12/27/17 1132 Date of Service: 12/27/17 110 Status: Signed Architecture Intern: Melyssa Harley RN (Registered Nurse) Pt arrived to ICU room [address]15 onver darnell Transaction, Provider Unknown - 12/27/2017 7:35 AM PDT Nurse Progress Note by Jane Real RN at 12/27/17 0735 Author: Jane Real RN Service: -Emergency Author Type: Registered Nurse Filed: 12/27/17 1034 Date of Service: 12/27/17 0735 Status: Signed Architecture Intern: Jane Real RN (Registered Nurse) During report laborer general onur howell came to retrieve pt for procedure. Transfer of care performe d without event. onver darnell Transaction, Provider Unknown - 12/27/2017 2:21 AM PDT Nurse Progress Note by Demian Ling RN at 12/27/17220 Author: Demian Ling RN Service: (none) Author Type: Registered Nurse Filed: 12/27/17 0606 Date of Service: 12/27/17220 Status: Addendum Architecture Intern: Demian Ling RN (Registered Nurse) Related Notes: Original Note by Demian Ling RN (Registered Nurse) filed at 12/27/17 0221 MD not notified of Trop level d/t nursing communication order. Second elevation not called, see nursing communication order. onver darnell Transaction, Provider Unknown - 12/26/2017 7:20 PM PDT Nurse Progress Note by Lilliana Westbrook RN at 12/26/171919 Author: Lilliana Westbrook RN Service: (none) Author Type: Registered Nurse Filed: 12/26/171920 Date of Service: 12/26/171919 Status: Signed Architecture Intern: Lilliana Westbrook RN (Registered Nurse) Chart check review complete. Lilliana Westbrook onver darnell Transaction, Provider Unknown - 12/26/2017 4:50 PM PDT Pharmacy Note by Rolando Russell RPH at 12/26/171649 Author: Rolando Russell RPH Service: Pharmacy Author Type: Pharmacist Filed: 12/26/171649 Date of Service: 12/26/171649 Status: Signed Architecture Intern: Rolando Russell RPH (Pharmacist) Renal Dosing Monitoring: Yuliana Humphreys 77 y.o. female Pharmacy dosing for renal function per Dr. Buck Creatinine clearance cannot be calculated (Patient's most recent lab result is older than t he maximum 30 days allowed.) Plan per protocol: No medications need adjustment at this time Pharmacy will continue to monitor changes in medication orders and renal function and will adjust accordingly. 12/26/2017 4:50 PM Pharmacist: Rolando Russell docume nted in this encounter Plan of [...] | | | | | [place] [address] | | | | | | [phone] | | | | | | | [...] [address] | | | | | | [address] | | | | | | [place] [address] | | | | | | [phone] | | | | | | | [...] | | | Fingerstick | performed at [facility];[address] | | LAB | | | | [address]indy [address];[place] | | | | | | [address] | | | | + + + [...] | | | Fingerstick | performed at [facility];[address] | | LAB | | | | [address]indy Rodriges;[place], [place] | | | | | | [address] | | | | + + + [...] | | | Fingerstick | performed at [facility];[address] | | LAB | | | | Cindy Rodriges;[place] | | | | | | [address] | | | | + + + [...] + + + | RED CELL | 3.75 | 3.70 - 5.10 | EXTERNAL | | | COUNT | | M/uL | LAB | | + + + + + + | Hgb | 12.7 | 11.3 - 15.5 | [...] | | | Basophils | performed at [facility];[address] | K/uL | LAB | | | | [address];[place], [place] | | | | | | [address] | | | | + + + [...] EXTERNAL | | | | performed at [facility];[address] | | LAB | | | | [address]indy Rodriges;[place] | | | | | | [address] | | | | + + + [...] EXTERNAL | | | | performed at [facility];[address] | | LAB | | | | [address]indy [address];[place], [place] | | | | | | [address] | | | | + + + [...] | | | | | performed at [facility];[address] | | | | | | [facility];[place], [place] | | | | | | [address] | | | | + + + [...] | | | Fingerstick | performed at [facility];[address] | | LAB | | | | [address];[place], [place] | | | | | | [address] | | | | + + + [...] | | | Fingerstick | performed at [facility];[address] | | LAB | | | | [address];[place], [place] | | | | | | [address] | | | | + + + [...] | | | Fingerstick | performed at [facility];[address] | | LAB | | | | [address];[place] | | | | | | [address] | | | | + + + [...] | | | Fingerstick | performed at [facility];[address] | | LAB | | | | [address];[place] | | | | | | [address] | | | | + + + + + + + + | Specimen | + + | | + + + +---------+ + + | Performing | Address | City/State/Zipcode | Phone Number | | Organization | | | | + +---------+ + + | EXTERNAL LAB | | | | + +---------+ + + External Lab: CBC (12/30/2017 4:40 AM PDT) + + + [...] + + + | RED CELL | 3.59 (L) | 3.70 - 5.10 | EXTERNAL | | | COUNT | | M/uL | LAB | | + + + + + + | Hgb | 12.3 | 11.3 - 15.5 | [...] | | | Basophils | performed at [facility], [address] | K/uL | LAB | | | | [address], | | | | | | [place] [address] | | | | + + + [...] EXTERNAL | | | | performed at [facility], [address] | | LAB | | | | [address], | | | | | | [place] [address] | | | | + + + [...] EXTERNAL | | | | performed at [facility], [address] | | LAB | | | | [address], | | | | | | [place] [address] | | | | + + + [...] | | | | | performed at [facility], [address] | | | | | | [address], | | | | | | [place] [address] | | | | + + + [...] | | | Fingerstick | performed at [facility];[address] | | LAB | | | | [address];[place], [place] | | | | | | [address] | | | | + + + [...] | | | Fingerstick | performed at [facility];[address] | | LAB | | | | [address];[place] | | | | | | [address] | | | | + + + [...] | | | Fingerstick | performed at [facility];[address] | | LAB | | | | [address];[place] | | | | | | [address] | | | | + + + [...] + + + | RED CELL | 3.58 (L) | 3.70 - 5.10 | EXTERNAL | | | COUNT | | M/uL | LAB | | + + + + + + | Hgb | 12.4 | 11.3 - 15.5 | [...] | | | Basophils | performed at [facility];[address] | K/uL | LAB | | | | [address];[place] | | | | | | [address] | | | | + + + [...] EXTERNAL | | | | performed at [facility];[address] | | LAB | | | | [address];[place] | | | | | | [address] | | | | + + + [...] EXTERNAL | | | | performed at [facility];[address] | | LAB | | | | [address];[place] | | | | | | [address] | | | | + + + [...] EXTERNAL | | | | performed at [facility];[address] | | LAB | | | | [address];[place], [place] | | | | | | [address] | | | | + + + [...] | | | | | | MDRD IDLA traceable | | | | | | equation.Testing | | | | | | performed at [facility] | | | | | | [facility];[place], [place] | | | | | | [address] | | | | + + + [...] | | | Fingerstick | performed at [facility];[address] | | LAB | | | | [address];[place], [place] | | | | | | [address] | | | | + + + [...] | | | Fingerstick | performed at [facility];8 | | LAB | | | | [address];[place], [place] | | | | | | [address] | | | | + + + [...] | | | Fingerstick | performed at [facility];[address] | | LAB | | | | [address];[place], [place] | | | | | | [address] | | | | + + + [...] | | | Fingerstick | performed at [facility];[address] | | LAB | | | | [address];[place] | | | | | | [address] | | | | + + + [...] + + | Historically converted procedure from [facility] Epic environment | EXTERNAL LAB | + [...] + + + | RED CELL | 3.79 | 3.70 - 5.10 | EXTERNAL | | | COUNT | | M/uL | LAB | | + + + + + + | Hgb | 12.7 | 11.3 - 15.5 | [...] | | | Basophils | performed at [facility];[address] | K/uL | LAB | | | | [address];[place], [place] | | | | | | [address] | | | | + + + [...] | | | | | performed at [facility], [address] | | | | | | [facility], | | | | | | [place] [address] | | | | + + + [...] EXTERNAL | | | | performed at [facility];[address] | | LAB | | | | [address];[place] | | | | | | [address] | | | | + + + [...] EXTERNAL | | | | performed at [facility];[address] | | LAB | | | | [facility];[place], [place] | | | | | | [address] | | | | + + + [...] | | | Fingerstick | performed at [facility];[address] | | LAB | | | | [address];[place], [place] | | | | | | [address] | | | | + + + [...] + + | Historically converted procedure from [facility] environment | EXTERNAL LAB | + + [...] | | | Fingerstick | performed at [facility];[address] | | LAB | | | | [address];[place], [place] | | | | | | [address] | | | | + + + [...] EXTERNAL | | | | performed at [facility];888 | mmol/L | LAB | | | | [address];[place], [place] | | | | | | [address] | | | | + + + [...] EXTERNAL | | | | performed at [facility];[address] | | LAB | | | | [address];[place], [place] | | | | | | [address] | | | | + + + [...] | | | | | INDICATIONS Acute AR CONCLUSIONS 1. | | | This was [...] TR Vmax: | | | 3.63 m/s Flume Ride Operator: Authenticated by: NASH GENAO MD | | | Report Date/Time: 12-27-2017 18:35:12 | | + + + + + | Procedure Note | + + | Wesley, Rad Conversion - 12/28/2018 5:54 AM PDT Patient Name: Blake HUMPHREYS of | | : 1940 Performing Physician: NASH GENAO, | | INDICATIONS A | | cute AR CONCLUSIONS 1. This was a technically difficult [...] (A-L): 30.10 ml/m2LAAs A2C: 25.25 | | [id number] A-L A2C: 80.09 mlLALs A2C: 6.76 cmLAAs A4C: 17.87 [id number] A-L A4C: | | 42.38 mlLALs A4C: 6.39 cmTAPSE: 2.27 cmHR: 57.46 BPMAV maxP.37 mmHgAV | | meanP.40 mmHgAV Vmax: 1.61 m/Maurice Vmean: 1.22 m/Maurice VTI: 41.09 cmAVA Vmax: | | 2.19 cm2AVA (VTI): 1.92 iv4ZQRG Vmax: 0.00 cm2/m2AVAI (VTI): 0.00 cm2/m2LVCI Dopp: | | 2.22 l/lgkv2JHGJ Dopp: 4.42 l/minHR: 55.98 BPMLVOT maxP.74 mmHgLVOT [...] maxP.80 mmHgTR Vmax: 3.63 m/s | | Flume Ride Operator: Denzelted by: Haily HATCH Date/Time: 12-27-2017 18:35:12 | [...] |TR Vmax: 3.63 m/s | | | |Flume Ride Operator: JR | |Authenticated by: NASH GENAO MD [...] | | | Fingerstick | performed at [facility];[address] | | LAB | | | | [address];[place] | | | | | | [address] | | | | + + + [...] + + | Historically converted procedure from [facility] Epic environment | EXTERNAL LAB | + [...] | | | Fingerstick | performed at [facility];[address] | | LAB | | | | [address];[place] | | | | | | [address] | | | | + + + [...] NEGATIVE Testing | | | performed at [facility];[place] [address] | | + + + + +---------+ [...] femoral | | | artery through a 6-Sri Lankan, 23 cm sheath. I walked into the room, | | | introduced myself to the patient. A new timeout was performed, and | | | through the right femoral sheath I advanced a 6-Sri Lankan AL1 guide. | | | That was [...] and then I advanced a short BMW [place] wire to the | | | obtuse [...] | over the wire I advanced an [place] 6-Sri Lankan retrieval device that | | | retrieved [...] was to do an attempt of a 6-Sri Lankan Perclose device, so I | | | [...] | | common femoral artery through a 6-Sri Lankan, 23 cm sheath. I walked into the | | room, introduced myself to the patient. A new timeout was performed, and | | through the right femoral sheath I advanced a 6-Sri Lankan AL1 guide. That was | | advanced [...] and then I advanced a short BMW [place] wire to the | | obtuse marginal, [...] so over the wire I advanced an [place] 6-Sri Lankan | | retrieval device that retrieved a [...] do an attempt | | of a 6-Sri Lankan Perclose device, so I removed the sheath [...] report. | | | + + POC STAN, CG8, Arterial (12/27/2017 10:35 AM PDT) + [...] | | | POC | performed at [facility];[address] | g/dL | LAB | | | | [address];[place] | | | | | | [address] | | | | + + + [...] | | | Clotting | performed at [facility];888 | seconds | LAB | | | time, POC | [address];[place] | | | | | | [address] | | | | + + + [...] | | | Fingerstick | performed at [facility];[address] | | LAB | | | | [address];[place] | | | | | | [address] | | | | + + + [...] | | | Clotting | performed at [facility];[address] | seconds | LAB | | | time, POC | [address];[place] | | | | | | [address] | | | | + + + [...] | | | Clotting | performed at [facility];[address] | seconds | LAB | | | time, POC | [address];[place] | | | | | | [address] | | | | + + + [...] | | | Clotting | performed at [facility];[address] | seconds | LAB | | | time, POC | [address];[place] | | | | | | [address] | | | | + + + [...] attempt. The guidewire was passed and a 6-Sri Lankan | | | introducer sheath was inserted into the right common femoral artery. | | | A 0.035-inch J-tip guidewire was used to advance a 5-Sri Lankan FL4 via | | | the aortic root where it was used to perform selective angiography | | | of the guidiville left coronary circulation in multiple views in standard | | | fashion. Via guidewire exchange, a 5-Sri Lankan FR4 catheter was | | | advanced to the aortic root, but failed to locate the ostium of the | | | guidiville right coronary artery, which is presumed to [...] J-tip guidewire | | | for a 5-Sri Lankan ANAMARIA catheter, which was used to perform [...] easily visible on | | | fluoroscopy. EGEGIK CORONARY ARTERIES: 1. Left Main: This is [...] | | and a large first septal cephalometric analyst branch. This septal cephalometric analyst | | | branch is normal. The [...] widely | | | patent. There are uwwx-og-hulu collaterals to the third obtuse | | [...] disease. | | | CONCLUSIONS: 1. Severe guidiville 3-vessel coronary artery disease | | | with an occluded left anterior descending artery and presumed total | | | occlusion of the proximal guid[place]le right coronary artery. 2. Patent | | [...] attempt. The guidewire was passed and a 6-Sri Lankan introducer sheath was | | inserted into the right common femoral artery. A 0.035-inch J-tip | | guidewire was used to advance a 5-Sri Lankan FL4 via the aortic root where it | | was used to perform selective angiography of the guidiville left coronary circulation | | in multiple views in standard fashion. Via guidewire exchange, a 5-Sri Lankan | | FR4 catheter was advanced to the aortic root, but failed to locate the | | ostium of the guidiville right coronary artery, which is presumed to [...] 0.035-inch J-tip guidewire for a | | 5-Sri Lankan ANAMARIA catheter, which was used to perform [...] visible on fluoroscopy. | | | | EGEGIK CORONARY ARTERIES: | | 1. Left Main: [...] and a large first septal | | cephalometric analyst branch. This septal cephalometric analyst branch is normal. The first | | [...] | and is widely patent. There are gpcb-yx-buwq collaterals to the third | | obtuse [...] | | CONCLUSIONS: | | 1. Severe guidiville 3-vessel coronary artery disease with an occluded left | | anterior descending artery and presumed total occlusion of the proximal | | guidiville right coronary artery. | | 2. Patent [...] | | | Patient | performed at [facility];[address] | | LAB | | | | [address];[place], [place] | | | | | | [address] | | | | + + + [...] | | | Fingerstick | performed at [facility];[address] | | LAB | | | | [address];[place] | | | | | | [address] | | | | + + + [...] | | | | | | ACUTE AR CALLED NURSING | | | | | | UNITREAD BACK RESULTS | | | | | | VERIFIEDKYLEEBEEA B IN 4RP | | | | | | AT 0603 BY TDTesting | | | | | | performed at [facility];[address] | | | | | | [facility];[place] | | | | | | [address] | | | | + + + [...] + + + | RED CELL | 3.68 (L) | 3.70 - 5.10 | EXTERNAL | | | COUNT | | M/uL | LAB | | + + + + + + | Hgb | 12.8 | 11.3 - 15.5 | [...] | | | Basophils | performed at [facility], [address] | K/uL | LAB | | | | [address], | | | | | | [place] [address] | | | | + + + [...] EXTERNAL | | | | performed at [facility], [address] | uIU/mL | LAB | | | | [facility], | | | | | | [place] [address] | | | | + + + [...] EXTERNAL | | | | performed at [facility], [address] | | LAB | | | | [address], | | | | | | [place] [address] | | | | + + + [...] EXTERNAL | | | | performed at [facility], [address] | | LAB | | | | [address], | | | | | | [place] [address] | | | | + + + [...] | EXTERNAL | | | A1c | [facility] | | LAB | | | [...] | | | | | performed at [facility], [address] | | | | | | [place] [address], | | | | | | [place] [address] | | | | + + + [...] + + + + + + | LDL | 68Comment: Testing | mg/dL | EXTERNAL | | | Cholesterol | performed at [facility], [address] | | LAB | | | , | [place] [address], | | | | | Calculated, | [place] [address] | | | | | External | | | | | + + [...] | | | | | performed at [facility], [address] | | | | | | [facility], | | | | | | [place] [address] | | | | + + + [...] + + | Historically converted procedure from [facility] environment | EXTERNAL LAB | + + [...] | | | | | | ACUTE AR CALLED TO | | | | | | BANDAR Mccormick RN/4RP AT | | | | | | 0030 BY MWREAD BACK | | | | | | RESULTS VERIFIEDTesting | | | | | | performed at [facility] | | | | | | [facility];[place] | | | | | | [address] | | | | + + + [...] | | | Patient | performed at [facility];[address] | | LAB | | | | [address];[place], [place] | | | | | | [address] | | | | + + + [...] | | | Fingerstick | performed at [facility] | | LAB | | | | [address];[place] | | | | | | [address] | | | | + + + [...] Rad Conversion - 12/28/2018 5:54 AM PDT HISTORY:Chest [...] + + | Historically converted procedure from [facility] environment | EXTERNAL LAB | + + [...] | | | | | | ACUTE AR CALLED | | | | | | RESULTSREAD BACK RESULTS | | | | | | VERIFIEDMESUSHMA W/4RP AT | | | | | | 1751 BY MAHTesting | | | | | | performed at [facility];[address] | | | | | | [facility];[place], [place] | | | | | | [address] | | | | + + + [...] | | | Patient | performed at [facility];[address] | | LAB | | | | [address];[place] | | | | | | [address] | | | | + + + + + + + + | Specimen | + + | Blood specimen | | (specimen) | + + + +---------+ + + | Performing | Address | City/State/Zipcode | Phone Number | | Organization | | | | + +---------+ + + | EXTERNAL LAB | | | | + +---------+ + + Protime INR (12/26/2017 4:45 PM PDT) + + [...] | | | | | performed at [facility] | | | | | | [address];[place], [place] | | | | | | [address] | | | | + + + [...] | | | Fingerstick | performed at [facility];[address] | | LAB | | | | [address];[place], [place] | | | | | | [address] | | | | + + + [...] Olson Conversion - 12/28/2018 5:54 AM PDT This is [...]
--- OUTSIDE RECORDS SUMMARY | ~2019-05-30 | XMS | Encounter Summary ---
Demographics + + + | Address | [address] | | | [place] [address] | + + + | Home Phone | | + + + | Preferred Language | Unknown | + + + | Marital Status | | + + + | Zoroastrian Affiliation | 1041 | + + + | Race | Unknown | + + + | Ethnic Group | Unknown | + + + Author + + + | Author | [facility] | | | and [place] | + + + | Organization | [facility] | | | and [place] | + + + | Address | Unknown | + + + | Phone | Unavailable | + + + Support + + +---------+ + | Name | Relationship | Address | Phone | + + +---------+ + | Kaimla Jackson | ECON | Unknown | | + + +---------+ + | Martha Brooksman | ECON | Unknown | | + + +---------+ + Care Team Providers + +------+ + | Care Percussion Instrument Repairer Name | Role | Phone | + +------+ + | Roxana Barajas PA-C | PCP | | + +------+ + Encounter Details +--------+ + + + + | Date | Type | Department | Care Team | Description | +--------+ + + + + | 12/30/ | Orders Only | [facility] | Dawn Burrows | Essential (primary) | | 2019 | | CARDIOLOGY [place] | [address] | hypertension; Mixed | | | | [address] | [address] | hyperlipidemia | | | | [address] | [place] [address] | | | | | [place] | [phone] | | | | | [address] | | | | | | [phone] | | | +--------+ + + + [...] | | | | | | [place] [address] | | | | | | [phone] | | | | | | | | +--------+ + + + + | 06/12/ | Office | Cardiology | Barak Caba | | 2019 | Visit | | [address] | | | | | | [facility] | | | | | | [place] | | | | | | [address] | | | | | | | [...] | | | | | [place] [address] | | | | | | [phone] | | | | | | | | +--------+ + + + + | 09/10/ | Procedure | Cardiology | | | | 2019 | visit | | | | +--------+ + + + + + +------+--------+ + + | Name | Type | Priori | Associated Diagnoses | Order Schedule | | | | ty | | | + +------+--------+ + + | Comprehensive | Lab | Routin | Essential | Expected: | | Metabolic Panel | | e | (primary) | 07/18/2018, Expires: | | | | | hypertension Mixed | 07/19/2019 | | | | | hyperlipidemia | | + +------+--------+ + + | Lipid Panel | Lab | Routin | Mixed | Expected: | | | | e | hyperlipidemia | 07/18/2018, Expires: | | | | | | 07/19/2019 | + +------+--------+ + + documented as of this encounter Visit Diagnoses + + | Diagnosis | + + | Essential (primary) hypertension Unspecified essential hypertension | + + | Mixed hyperlipidemia | + + documented in this encounter"
--- OUTSIDE RECORDS SUMMARY | ~2019-05-30 | XMS | Encounter Summary ---
Demographics + + + | Address | [address] | | | [place] [address] | + + + | Home Phone | | + + + | Preferred Language | Unknown | + + + | Marital Status | | + + + | Judaism Affiliation | 1041 | + + + | Race | Unknown | + + + | Ethnic Group | Unknown | + + + Author + + + | Author | [facility] | | | and [place] | + + + | Organization | [facility] | | | [...] Team Providers + +------+ + | Care Fuse Assembler Name | Role | Phone | + +------+ + | Pcp, Prov Inactive | PCP | | + +------+ + Encounter Details +--------+ + + + + | Date | Type | Department | Care Team | Description | +--------+ + + + + | 01/09/ | Hospital | [facility] | Conversion | Pain | | 2018 | Encounter | [address] | Transaction, | | | | | [address] | Provider Unknown | | | | | [place], [place] | [phone] | | | | | [address] | | | | | | [phone] | | | +--------+ + + + [...] | | | | | [place] [address] | | | | | | [phone] | | | | | | | | +--------+ + + + + | 06/12/ | Office | Cardiology | Barak Caba | | | 2019 | Visit | | [address] | | | | | | [address] | | | | | | [place] | | | | | | [address] | | | | | | | [...] | | | | | [place] [address] | | | | | | [phone] | | | | | | | [...]
--- OUTSIDE RECORDS SUMMARY | ~2019-05-30 | XMS | Encounter Summary ---
Demographics + + + | Address | [address] | | | [place] [address] | + + + | Home Phone | | + + + | Preferred Language | Unknown | + + + | Marital Status | | + + + | Lutheran Affiliation | 1041 | + + + | Race | Unknown | + + + | Ethnic Group | Unknown | + + + Author + + + | Author | [facility] | | | and [place] | + + + | Organization | [facility] | | | [...] Team Providers + +------+ + | Care Packaging Machine Operator Name | Role | Phone [...] | month remote | PA-C [address] | [place] | | | | | Procedures | [address] | [address] | | | | | REMOTE | [place] | | | | | | DEVICE CHECK | [address] | [place], [place] | | | | | | [place], | [address] | | | | | | [place] | Phone: | | | | | | [address] | [phone] | | | | | | Phone: | Fax: | | | | | | [phone] | [phone] | | | | | | Fax: | | | | | | | [phone] | | +--------+--------+ + + + + Encounter Details +--------+ + + + + | Date | Type | Department | Care Team | Description | +--------+ + + + + | 03/13/ | Procedure | [facility] | | Cardiac | | 2019 | visit | CARDIOLOGY MYERS FLAT | | defibrillator in | | | | [address] | | situ (Primary Dx) | | | | [place], [place] | | | | | | [address] | | | | | | [phone] | | | +--------+ + + + [...] | | | | | [place] [address] | | | | | | [phone] | | | | | | | | +--------+ + + + + | 06/12/ | Office | Cardiology | Barak Caba | | | 2019 | Visit | | [address] | | | | | | [address] | | | | | | [place] | | | | | | [address] | | | | | | | [...] | | | | | [place] [address] | | | | | | [phone] | | | | | | | [...] + + + | Girish Sarmiento | ISADOR[place] | | ONUR Neal 03/13/2019 13:16ICD REMOTE INTERROGATION REPORT | | | Name: Yuliana Galindo PCP: Roxana Barajas PA-C : 1940MRN: | | | [id number] Primary cardiology provider: Tres Hewitt Primary | | | electrophysiology provider: Erin Caba Device boat ride operator: | | | LABOMAR Device type: Dual chamber Battery Longevity: 3 [...]
--- OUTSIDE RECORDS SUMMARY | ~2019-05-30 | XMS | Encounter Summary ---
Demographics + + + | Address | [address] | | | [place] [address] | + + + | Home Phone | | + + + | Preferred Language | Unknown | + + + | Marital Status | | + + + | Scientology Affiliation | 1041 | + + + | Race | Unknown | + + + | Ethnic Group | Unknown | + + + Author + + + | Author | [facility] | | | and [place] | + + + | Organization | [facility] | | [...] Team Providers + +------+ + | Care Wire Coiler Name | Role | Phone | + +------+ + | Pcp, Prov Inactive | PCP | | + +------+ + Encounter Details +--------+ + + + + | Date | Type | Department | Care Team | Description | +--------+ + + + + | 12/13/ | Orders Only | [facility] | Provider, | | | 2018 | | SYSTEM GENERIC OP | [address] | | | | | CONVERSION [address] | [address] | | | | | [address] [place], [place] | [place] [address] | | | | | [address] | | | | | | [phone] | | | +--------+ + + + [...] | | | | | [place] [address] | | | | | | [phone] | | | | | | | | +--------+ + + + + | 06/12/ | Office | Cardiology | Barak Caba | | | 2019 | Visit | | [address] | | | | | | [address] | | | | | | [place] | | | | | | [id number] | | | | | | | | +--------+ + + + + | 06/12/ | Procedure | Cardiology | | | | 2019 | visit | | | | +--------+ + + + + | 02/13/ | Office | Pulmonology | Zheng Saravia | | | 2019 | Visit | | Eddie Bowden MD [address] | | | | | | [address] | | | | | | [place] [address] | | | | | | [phone] | | | | | | | | +--------+ + + + + | 09/10/ | Procedure | Cardiology | | | | 2019 | visit | | | | +--------+ + + + + documented as of this encounter Visit Diagnoses Not on filedocumented in this encounter"
--- OUTSIDE RECORDS SUMMARY | ~2019-05-30 | XMS | Clinical Summary ---
Demographics + + + | Address | [address] | | | [place] [address] | + + + | Home Phone | | + + + | Preferred Language | Unknown | + + + | Marital Status | | + + + | Taoism Affiliation | 1041 | + + + | Race | Unknown | + + + | Ethnic Group | Unknown | + + + Author + + + | Author | [facility] (Historical as of | | | 12-31-18) | + + + | Organization | [facility] (Historical as of | | | 12-31-18) [...] Team Providers + +------+ + | Care Conservation Science Officer Name | Role | Phone | + [...] | mouth nightly. | tablet | | /20 | | e | | tablet | | | | 18 | | | + + +---------+---------+------+------+-------+ | lisinopril | Take 1 tablet by | 90 | 3 | 11/2 | | Activ | | (ZESTRIL) 10 MG | mouth daily. | tablet | | /20 | | e | | tablet | | | | 18 | | | + + +---------+---------+------+------+-------+ | isosorbide | Take 1 tablet by | | | 02/2 | | Activ | | mononitrate (IMDUR) | mouth daily. 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 | + + + | Coronary artery disease involving [place] coronary artery | | + + + [...] + + + + + | Overview: [place] | | Telogen model E110, serial number [id number] | + + Family History + + [...] | Coronary Artery | Mother | | ID | | Disease | | | | [...] Corey | [place] | | 08/30/ | [id number] | | -12/27/2017Implanted: | | ry | SCIENTIFIC | | 2019 | [id number] | | 12/27/2017 by Aquiles Morris, | | | LARRY - BSCI | | | 50 / | | MD (Quantity not on file) | | | | | | /[id number] | | | | | | | | 257 | + +-------+--------+ +--------+--------+--------+ | Synergy 3.5 X | Stent | Corey | [place] | | 08/30/ | [id number] | | -12/27/2017Implanted: | | ry | SCIENTIFIC | | 2018 | [id number] | | 12/27/2017 by Aquiles Morris, | | | LARRY - BSCI | | | 50 / | | MD (Quantity not on file) | | | | | | /[id number] | | | | | | | [...] +------+-------+ + | MEDICARE | MEDICA | [id number] | | | [address] | | | RE | | | | [place], [place] [address] | | | IP-OP | | | | | + +--------+ +------+-------+ + | MEDICAID | MEDICA | [id number] | | | [address] | | | ID | | | | [place], [place] | | | [place] | | | | [address] | + +--------+ +------+-------+ + | /[facility] | YELLOW | [id number] | | | | | PLANS | [...] | Self | [birth year] Home: | [address] | | | al/Fam | | 1941 | [phone] | [place] | | | [place] | | | [phone] | [phone] | + +--------+ +--------+ + +
--- OUTSIDE RECORDS SUMMARY | ~2019-05-30 | XMS | Encounter Summary ---
Demographics + + + | Address | [address] | | | [place] [address] | + + + | Home Phone | | + + + | Preferred Language | Unknown | + + + | Marital Status | | + + + | Uatsdin Affiliation | 1041 | + + + | Race | Unknown | + + + | Ethnic Group | Unknown | + + + Author + + + | Author | [facility] | | | and [place] | + + + | Organization | [facility] | | | and [...] Team Providers + +------+ + | Care Integration Technician Name | Role | Phone | + +------+ + PCP | Unavailable | + +------+ + Encounter Details +--------+ + + + + | Date | Type | Department | Care Team | Description | +--------+ + + + + | 01/27/ | Abstract | [place] [facility] | [facility] | | | 2011 | | Conversion Location | SR | | | | | [phone] | | | +--------+ + + + [...] | | | | | | [place] [address] | | | | | | [phone] | | | | | | | | +--------+ + + + + | 06/12/ | Office | Cardiology | Barak Caba | | | 2019 | Visit | | [address] | | | | | | [place] | | | | | | [place] | | | | | | [address] | | | | | | | [...] | | | | | [place] [address] | | | | | | [phone] | | | | | | | | +--------+ + + + + | 09/10/ | Procedure | Cardiology | | | | 2020 | visit | | | | +--------+ + + + + documented as of this encounter Visit Diagnoses Not on filedocumented in this encounter
--- OUTSIDE RECORDS SUMMARY | ~2019-05-30 | XMS | Encounter Summary ---
Demographics + + + | Address | [address] | | | [place] [address] | + + + | Home Phone [...] Team Providers + +------+ + | Care Kiln Cleaner Name | Role | Phone | + [...] MD [address] | | | | | [place], [place] | [address] | | | | | [address] | [place] [address] | | | | | [phone] | [phone] | | | | | | | [...] | | | | | [place] [address] | | | | | | [phone] | | | | | | | | +--------+ + + + + | 06/12/ | Office | Cardiology | Barak Caba | | | 2019 | Visit | | [address] | | | | | | [address] | | | | | | [place] | | | | | | [phone] | | | | | | | [...] [place] | | | | | | [place] [address] | | | | | | [phone] | | | | | | | [...]
--- OUTSIDE RECORDS SUMMARY | ~2019-05-30 | XMS | Encounter Summary ---
Demographics + + + | Address | [address] | | | [place] [address] | + + + | Home Phone | | + + + | Preferred Language | Unknown | + + + | Marital Status | | + + + | Sabianism Affiliation | 1041 | + + + | Race | Unknown | + + + | Ethnic Group | Unknown | + + + Author + + + | Author | [facility] | | | and [place] | + + + | Organization | [facility] | | | and [place] | + + + | Address | Unknown | + + + | Phone | Unavailable | + + + Support + + +---------+ + | Name | Relationship | Address | Phone | + + +---------+ + | Kamila Jackson | ECON | Unknown | | + + +---------+ + | Martahfernando Montenegro | ECON | Unknown | | + + +---------+ + Care Team Providers + +------+ + | Care Gatehouse Attendant Name | Role | Phone | + +------+ + PCP | Unavailable | + +------+ + Encounter Details +--------+ + + + + | Date | Type | Department | Care Team | Description | +--------+ + + + + | 08/13/ | Hospital | [facility] | Harsha Avilez, | | | 2003 - | Encounter | [facility] | [address] | | | | | CARDIAC TELEMETRY | [address] | | | 08/15/ | | [address] | [place] [address] | | | 2003 | | [place] | [phone] | | | | | [address] | | | | | | [phone] | | | +--------+ + + + [...] | | | | | [place] [address] | | | | | | [phone] | | | | | | | | +--------+ + + + + | 06/12/ | Office | Cardiology | Barak Caba | | | 2019 | Visit | | [address] | | | | | | [address] | | | | | | [place] | | | | | | [phone] | | | | | | | [...] [place] | | | | | | [place] [address] | | | | | | [phone] | | | | | | | | +--------+ + + + + | 09/10/ | Procedure | Cardiology | | | | 2019 | visit | | | | +--------+ + + + + documented as of this encounter Visit Diagnoses Not on filedocumented in this encounter"
--- OUTSIDE RECORDS SUMMARY | ~2019-05-30 | XMS | Clinical Summary ---
Demographics + + + | Address | [address] | | | [place] [address] | + + + | Home Phone | | + + + | Preferred Language | Unknown | + + + | Marital Status | | + + + | Roman Catholic Affiliation | 1041 | + + + | Race | Unknown | + + + | Ethnic Group | Unknown | + + + Author + + + | Author | [facility] (Historical as of | | | 12-31-18) | + + + | Organization | [facility] (Historical as of | | | 12-31-18) [...] Team Providers + +------+ + | Care Rubber Stamp Dies Inspector Name | Role | Phone | + [...] | | | | type ([facility]) | | | | | | [...] | | | | type ([facility]) | | | | | | [...] Overview: intial AICD 2004, generator change 03/27/11, [place] | | Scientific Telogen E110, s# [id number]; RV Lead - Guidant 0184, s# | | [id number] (08/15/03); RA Lead - Guidant Fineline II EZ Sterox 4469, | | s# [id number] (08/15/03) | + + + + + | Ventricular tachycardia, paroxysmal (HCC) | 05/17/2003 | + + + + + | Overview: with Syncope, + EPS for inducible VT - 08/14/03 | + + + + + | 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 | + + + | 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 | | + + + [...] + + + + + | Overview: [place] | | Telogen model E110, serial number [id number] | + + Family History + + [...] | Coronary Artery | Mother | | [place] | | Disease | | | | [...] Corey | [place] | | 08/30/ | [id number] | | -12/27/2017Implanted: | | ry | SCIENTIFIC | | 2019 | [id number] | | 12/27/2017 by Aquiles Morris, | | | LARRY - BSCI | | | 50 / | | MD (Quantity not on file) | | | | | | /[id number] | | | | | | | | 257 | + +-------+--------+ +--------+--------+--------+ | Synergy 3.5 X | Stent | Corey | [place] | | 08/30/ | [id number] | | -12/27/2017Implanted: | | ry | SCIENTIFIC | | 2018 | [id number] | | 12/27/2017 by Aquiles Morris, | | | LARRY - BSCI | | | 50 / | | MD (Quantity not on file) | | | | | | /[id number] | | | | | | | [...] +------+-------+ + | MEDICARE | MEDICA | [id number] | | | [address] | | | RE | | | | [place], [place] [address] | | | IP-OP | | | | | + +--------+ +------+-------+ + | MEDICAID | MEDICA | [id number] | | | [address] | | | ID | | | | [place], [place] | | | [place] | | | | [address] | + +--------+ +------+-------+ + | /[facility] | YELLOW | [id number] | | | | | PLANS | [...] | Self | [birth year] | Home: | [address] | | | al/Fam | | 1941 | [phone] | [place] | | | [place] | | | [phone] | [phone] | + +--------+ +--------+ + +
--- OUTSIDE RECORDS SUMMARY | ~2019-05-30 | XMS | Encounter Summary ---
Demographics + + + | Address | [address] | | | [place] [address] | + + + | Home Phone | | + + + | Preferred Language | Unknown | + + + | Marital Status | | + + + | Rastafari Affiliation | 1041 | + + + [...] Team Providers + +------+ + | Care Machine Tester Name | Role | Phone | + +------+ + | Jasmin Stephens MD | PCP | | + +------+ + Encounter Details +--------+ + + + + | Date | Type | Department | Care Team | Description | +--------+ + + + + | 04/16/ | Hospital | [facility] | Conversion | Diagnosis unknown | | 2016 | Encounter | CONVERSION [address] | Transaction, | | | | | [address] | Provider Unknown | | | | | [facility] [place] | [phone] | | | | | [address] | | | | | | [phone] | | | +--------+ + + + [...] | | | | | [place] [address] | | | | | | [phone] | | | | | | | | +--------+ + + + + | 06/12/ | Office | Cardiology | Barak Caba | | | 2019 | Visit | | [address] | | | | | | [facility] | | | | | | [place] | | | | | | [phone] | | | | | | | [...] [place] | | | | | | [facility] [place] [address] | | | | | | [phone] | | | | | | | [...]
--- OUTSIDE RECORDS SUMMARY | ~2019-05-30 | XMS | Encounter Summary ---
Demographics + + + | Address | [address] | | | [place] [address] | + + + | Home Phone | | + + + | Preferred Language | Unknown | + + + | Marital Status | | + + + | Latter Day Affiliation | 1041 | + + + | Race | Unknown | + + + | Ethnic Group | Unknown | + + + Author + + + | Author | [facility] | | | and [place] | + + + | Organization | [facility] | | | [...] Team Providers + +------+ + | Care Outside Energy Sales Representatives Name | Role | Phone | + +------+ + PCP | Unavailable | + +------+ + Encounter Details +--------+ + + + + | Date | Type | Department | Care Team | Description | +--------+ + + + + | 02/09/ | [facility] | [facility] | | | | 2006 - | Encounter | MED CTR MED ONC | | | | | | [address] | | | | 02/10/ | | [place] [address] | | | | 2005 | | [phone] | | | +--------+ + + + [...] | | | | | | [place] [address] | | | | | | [phone] | | | | | | | | +--------+ + + + + | 06/12/ | Office | Cardiology | Barak Caba | | | 2019 | Visit | | [address] | | | | | | [address] [address] | | | | | | [place] | | | | | | [address] | | | | | | | [...] | | | | | [place] [address] | | | | | | [phone] | | | | | | | | +--------+ + + + + | 09/10/ | Procedure | Cardiology | | | | 2020 | visit | | | | +--------+ + + + + documented as of this encounter Visit Diagnoses Not on filedocumented in this encounter"
--- OUTSIDE RECORDS SUMMARY | ~2019-05-30 | XMS | Encounter Summary ---
Demographics + + + | Address | [address] | | | [place] [address] | + + + | Home Phone [...] Team Providers + +------+ + | Care Caving Guide Name | Role | Phone | + +------+ + | Pcp, Prov Inactive | PCP | | + +------+ + Encounter Details +--------+ + + + + | Date | Type | Department | Care Team | Description | +--------+ + + + + | 12/26/ | Hospital | [facility] | Pasha Buck | Pain; S/P drug | | 2018 - | Encounter | [facility] | MD [address] | eluting coronary | | | | CARE FLOOR [address] [place], [place] | stent placement; | | 12/31/ | | [address] | [id number] | NSTEMI (non-ST | | 2018 | | [place], [place] | | elevated myocardial | | | | [address] | | infarction) ([facility]) | | | | [phone] | | | +--------+ + + + [...] 1609 Date of Service: 12/31/17911 Status: Signed Lead Vulcanizing Operator: Francesco Edmonds MD (Physician) Patient: Yuliana Humphreys [...] was walking. She wa s transferred to [facility] due to possible NSTEMI. She underwent angiogram [...] Tres Beltran MD [facility] [place] [address] Schedule an appointment as soon as possible for a visit in 10 days hospital follow up. NSTEMI Roxana Barajas PA-C [address] [place] [address] Schedule an appointment as soon as possible [...] 12/31/171702 Date of Service: 12/31/171701 Status: Signed Lead Vulcanizing Operator: Pamela Wagner RN (Registered Nurse) Patient and daughter received discharge instructions, and Rx. All questions answered, and a ll belongings sent with patient, belongings check list is complete. All patient VS are stabl e, patient is afebrile and denies SOB, CP or N/V. PIV x 2 removed, home oxygen with patient. Patient wheeled out in wheelchair by [facility] escort to personal vehicle, discharged home wit h daughter. Pamela Wagner RN onver darnell Transaction, Provider Unknown - 12/31/2017 10:14 AM PDT Case Management by Wandy Gong RN at 12/31/17 1014 Author: Wandy Gong RN Service: (none) Author Type: Registered Nurse Filed: 12/31/17 1054 Date of Service: 12/31/17 1014 Status: Addendum Lead Vulcanizing Operator: Wandy Gong RN (Registered Nurse) Related Notes: Original Note by Wandy Gong RN (Registered Nurse) filed at 12/31/17 101 5 Pt to d/c home today. Pt will return home with caregivers/family. Family to transport Per [facility], they will deliver a portable tank to room today. Per [facility], they will accept pt Wednesday. Faxed AVS Notified Kell with [facility] of d/c plan, no questions Rita onver darnell Transaction, Provider Unknown - 12/31/2017 5:39 AM PDT Nurse Progress Note by Aishwarya Marr RN at 12/31/17 0539 Author: Aishwarya Marr RN Service: (none) Author Type: Registered Nurse Filed: 12/31/17 0541 Date of Service: 12/31/17 0539 Status: Signed Lead Vulcanizing Operator: Aishwarya Marr RN (Registered Nurse) Pt rested [...] 12/30/171807 Date of Service: 12/30/171805 Status: Signed Lead Vulcanizing Operator: Pamela Wagner RN (Registered Nurse) Patient had [...] 12/30/171851 Date of Service: 12/30/171728 Status: Signed Lead Vulcanizing Operator: Parmjit Hernandez PT (Physical Therapist) PHYSICAL THERAPY TREATMENT NOTE PT Received On: 12/30/17 Reason for Treatment: Deconditioning Requires PT Follow Up: PT tech Follow up PT Only?: No Assistance Required: 1 person Television Mechanic Needed: No Recommendations: Home Assist, PT PT [...] 1547 Date of Service: 12/30/171543 Status: Signed Lead Vulcanizing Operator: Francesco Edmonds MD (Physician) Service: Hospitalist Progress Note Pt: Yuliana Humphreys AGE/SEX: 77 y.o. female ROOM: [address] [place] [address] : 1940 PCP: Roxana Barajas ADMIT DATE: [...] (2003), HTN, current smoker, who presented to [facility] in [facility] to midsternal chest pain that started when she went for a walk. The pain radiated to her L shoulder and she became nauseous and diaphoretic. The patient had similar episodes when she had her CABG in 1994. EKG was done at [place] which revealed non-specific ST-T changes (no previous EKG to compare). She had borderline troponin elevation and was transferred to [facility] for cardiology services on heparin gtt. [...] the ICU. 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 for decreased LOC following sedation [...] NSTEMI (non-ST elevated myocardial infarction) ([facility]) Active Problems: S/P CABG x 4 Ischemic dilated cardiomyopathy ([facility]) Cardiac defibrillator in situ Hypertension Morbid obesity ([facility]) Tobacco use disorder Acute metabolic encephalopathy Acute respiratory failure with hypoxia and hypercapnia ([facility]) Pulmonary edema cardiac cause ([facility]) ASSESSMENT & PLAN NSTEMI - patient [...] and managing patient and counseling/coordination. Dictation software, [employer], used which may contain error for similar [...] Date of Service: 12/30/17 1210 Status: Addendum Lead Vulcanizing Operator: Wandy Gong RN (Registered Nurse) Related Notes: Original Note by Wandy Gong RN (Registered Nurse) filed at 12/30/17 122 3 Pt needing home O2, she has selected [facility]. Notified [facility], radha gardner will start process, faxed script. PT recommending HH services, pt wants [facility]. Referral sent. F2F referral in AVS Tentative d/c is Wednesday Tc to BASHIR Castorena with [facility] re d/c plan, Rita onver darnell Transaction, Provider Unknown - 12/30/2017 11:26 AM PDT Progress Notes by Dasha Yun CRT at 12/30/17 1126 Author: Dasha Yun CRT Service: (none) Author Type: Certified Respiratory The rapist Filed: 12/30/17 112 Date of Service: 12/30/17 112 Status: Signed Lead Vulcanizing Operator: Dasha Yun CRT (Certified Respiratory Therapist) Department of Respiratory Snf Oxygen Evaluation (Evaluation [...] 12/30/17431 Date of Service: 12/30/17431 Status: Signed Lead Vulcanizing Operator: Merlene Vieira RN (Registered Nurse) Chart check complete. onver darnell Transaction, Provider Unknown - 12/29/2017 5:39 PM PDT Nurse Progress Note by Pamela Wagner RN at 12/29/171738 Author: Pamela Wagner RN Service: (none) Author Type: Registered Nurse Filed: 12/29/171746 Date of Service: 12/29/171738 Status: Addendum Lead Vulcanizing Operator: Pamela Wagner RN (Registered Nurse) Related Notes: [...] Service: (none) Author Type: Physician Filed: 12/30/17 1628 Date of Service: 12/29/171705 Status: Signed Lead Vulcanizing Operator: Tres Beltran MD (Physician) Related Notes: Original Note by Tres Beltran MD (Physician) filed at 12/29/17 1712 Service: Cardiology Progress Note SUBJECTIVE Currently she [...] Mild LV dysfunction, ejection fraction 40-45%. 8. Vovtwhea-ii-rrytae pulmonary hypertension without significant valvular disease. 9. Obesity. PLAN: Continue with her current regimen, including aspirin and Plavix, aggressive pulmonar y toilet, and aerosols for her COPD. Careful diuresis is needed. TRES BELTRAN MD 12/29/2017 onversion Transacti on, Provider Unknown - 12/29/2017 12:37 PM PDTFormatting of this note might be different fro m the original. Case Management by Wandy Gong RN at 12/29/17 4674 Author: Wandy Gong RN Service: (none) Author Type: Registered Nurse Filed: 12/29/17 3319 Date of Service: 12/29/17 6032 Status: Signed Lead Vulcanizing Operator: Wandy Gong RN (Registered Nurse) Met with pt and daughter Cierra re d/ c planning. Pt resides in [place], uses [employer] and has a state paid caregiver. Pt states she plans to return home and no needs are expressed at thi s time. [phone] re d/c plan. Family to transport back [facility] Francesco Hardy i, MD - 12/29/2017 12:37 PM PDTFormatting of this note might be different from the o riginal. Progress Notes by Francesco Edmonds MD at 12/29/17 1237 Author: Francesco Edmonds MD Service: Hospitalist Author Type: Physician Filed: 12/29/17 1244 Date of Service: 12/29/171236 Status: Signed Lead Vulcanizing Operator: Francesco Edmonds MD (Physician) Service: Hospitalist Progress Note Pt: Yuliana Humphreys AGE/SEX: 77 y.o. female ROOM: [address] [place] [address] : 1940 PCP: Roxana Barajas ADMIT DATE: [...] (2003), HTN, current smoker, who presented to [facility] in [facility] to midsternal chest pain that started when she went for a walk. The pain radiated to her L shoulder and she became nauseous and diaphoretic. The patient had similar episodes when she had her CABG in 1994. EKG was done at [place] which revealed non-specific ST-T changes (no previous EKG to compare). She had borderline troponin elevation and was transferred to [facility] for cardiology services on heparin gtt. [...] the ICU. 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 for decreased LOC following sedation [...] Component Value Units Date/Time MRSA by PCR [[id number]] Collected: 12/27/17 1133 Specimen: Nasopharyngeal from Nares(Nose) [...] NSTEMI (non-ST elevated myocardial infarction) ([facility]) Active Problems: S/P CABG x 4 Ischemic dilated cardiomyopathy ([facility]) Cardiac defibrillator in situ Hypertension Morbid obesity (H[facility]) Tobacco use disorder Acute metabolic encephalopathy Acute respiratory failure with hypoxia and hypercapnia ([facility]) Pulmonary edema cardiac cause ([facility]) ASSESSMENT & PLAN NSTEMI - patient [...] and managing patient and counseling/coordination. Dictation software, [employer], used which may contain error for similar [...] 12/29/17650 Date of Service: 12/29/17650 Status: Signed Lead Vulcanizing Operator: Merlene Vieira RN (Registered Nurse) No acute events overnight, VSS, no c/o chest pain. onver darnell Transaction, Provider Unknown - 12/29/2017 3:24 AM PDT Nurse Progress Note by Merlene Vieira RN at 12/29/17323 Author: Merlene Vieira RN Service: (none) Author Type: Registered Nurse Filed: 12/29/175 Date of Service: 12/29/17323 Status: Signed Lead Vulcanizing Operator: Merlene Vieira RN (Registered Nurse) 12hr chart check complete. onver darnell Transaction, Provider Unknown - 12/28/2017 5:48 PM PDT Nurse Progress Note by Johnson Ames RN at 12/28/171747 Author: Johnson Ames RN Service: (none) Author Type: Registered Nurse Filed: 12/28/17 175 Date of Service: 12/28/171747 Status: Signed Lead Vulcanizing Operator: Johnson Ames RN (Registered Nurse) PT transfer to [facility] at 1500 in stable condition. New pure [...] Author: ESTER Rice Service: (none) Author Type: Safety Council Director Filed: 12/28/17 1541 Date of Service: 12/28/17 153 Status: Signed Lead Vulcanizing Operator: ESTER Rice (Safety Council Director) 12/28/17 1521 Discharge Planning Evaluation Admitting Diagnosis [...] [place] Relationship to Patient Caregiver Phone number [phone] Mental Status Unable to answer questions (Pt was asleep) Power of Excel Developer No Resources Financial concerns No Transportation issues No (Pt can drive, but not often. However, her caregiver and daughter will pick pt up from the hospital. ) Patient/Family concerns [place] [facility] Anticipated Disposition Facility Type Home Met with Yuliana Humphreys and discussed discharge planning. However, pt was asleep sp assessm ent was done over the phone with pt's daughter, Cierra Higgins ([phone]). Pt is a 77 y .o., female who resides with her daughter (Cierra), Cierra's boyfriend, and Cierra's 23 year old son. Pt resides at: [address] [place] [address], [place], [place] [facility]. Pt does not have to w alk up any steps to get into the house, there is a ramp. Pt's daughter reports good family and friend support. Pt's daughter states that she helps her mom with cooking, cleaning, etc. Patient's PCP is: Duc Person at [facility] Pt's daughter states that she is independent with mobility. However, if pt is walking a dis tance or traveling, she will use a cane. Pt's daughter states that pt does not use home oxygen. Pt has not received previous outpatient services. Pt is not currently on any blood thinners. Patient's insurance: Medicaid, Medicare, and [facility] insurance Coverage concerns: No Medication coverage/concerns: No Rx Bedside Delivery: Pt [facility] utilized / needed: Pt receives caregiving hours through [facility] [employer] [facility] in [place]. Pt's disease case manager is Melly Harris [phone]. Pt's ca regiver is Martha Lan ([phone]). Pt's daughter states that she gets around 18 hour s a week of caregiving services. Assistance in transportation: Pt can drive a small amount. However, her caregiver helps wit h transportation Identification of any specific education / training: TBD Barriers to Discharge / Alternative housing needed: TBD Anticipated DCP: Home Pt does not have an Advanced Directive or a Power of Excel Developer. Paperwork should be given to family (pt was transferred from ICU prior to receiving paperwork). ESTER Rice onver darnell Transaction, Provider Unknown - 12/28/2017 2:16 PM PDT Nurse Progress Note by Johnson Ames RN at 12/28/17 4656 Author: Johnson Ames RN Service: (none) Author Type: Registered Nurse Filed: 12/28/17 1416 Date of Service: 12/28/17 1416 Status: Signed Lead Vulcanizing Operator: Johnson Ames, RN (Registered Nurse) Report received from Leticia EDUCATIONAL TECHNICIAN. PT transferred to [facility] in stable condition. onver darnell Transaction, Provider Unknown - 12/28/2017 12:23 PM PDT Case Management by ESTER Cota at 12/28/17 1223 Author: ESTER Cota Service: (none) Author Type: Safety Council Director Filed: 12/28/17 1225 Date of Service: 12/28/17 1223 Status: Signed Lead Vulcanizing Operator: ESTER Cota (Safety Council Director) Spoke with Kell from [facility]. Informed that pt has not yet been assessed. She is reque sting that the discharging CM call her to notify of any d/c needs and give an update regardi ng d/c plan. Kell- [phone] onver darnell Transaction, Provider Unknown - 12/28/2017 10:51 AM PDT Case Management by ESTER Rice at 12/28/17 1051 Author: ESTER Rice Service: (none) Author Type: Safety Council Director Filed: 12/28/17 1058 Date of Service: 12/28/17 1051 Status: Signed Lead Vulcanizing Operator: ESTER Rice (Safety Council Director) CM attended morning rounds. Pt is in [...] at 12/28/17405 Author: Sherly Coppola DO Service: Home Service Technician Author Type: Physician Filed: 12/28/17 0624 Date of Service: 12/28/17405 Status: Signed Lead Vulcanizing Operator: Sherly Coppola DO (Physician) Service: Home Service Technician Progress Note Yuliana Humphreys 77 [facility].o. Hospital [...] (2003), HTN, current smoker, who presented to [facility] in [place] due to midsternal chest pain that started when she went for a walk. The pain radiated to her L shou lder and she became nauseous and diaphoretic. The patient had similar episodes when she had her CABG in 1994. EKG was done at [place] which revealed non-specific ST-T changes (no pre vious EKG to compare). She had borderline troponin elevation and was transferred to [facility] for cardiology services on heparin gtt. [...] the ICU. 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 Current smoker - counseling center manager regarding smoking cessation COPD/asthma: cont scheduled Combivent, [...] 12/27/171738 Date of Service: 12/27/171738 Status: Signed Lead Vulcanizing Operator: Melyssa Harley RN (Registered Nurse) End of shift chart review completed onver darnell Transaction, Provider Unknown - 12/27/2017 5:00 PM PDT Progress Notes by Melyssa Harley RN at 12/27/17 1700 Author: Melyssa Harley RN Service: (none) Author Type: Registered Nurse Filed: 12/27/17 1638 Date of Service: 12/27/171699 Status: Signed Lead Vulcanizing Operator: Melyssa Harley RN (Registered Nurse) Pt unable [...] Date of Service: 12/27/17 1635 Status: Addendum Lead Vulcanizing Operator: Herbert Mayorga RRT (Registered Respiratory Therapist) Related [...] Author: ESTER Cota Service: (none) Author Type: Safety Council Director Filed: 12/27/17 1417 Date of Service: 12/27/17 1415 Status: Signed Lead Vulcanizing Operator: ESTER Cota (Safety Council Director) Received message to call Kell Amaro to discuss d/c planning. Pt was just admitt ed to the ICU. I plan to complete an assessment either today or tomorrow. Called Kell rhodes and left a VM requesting a return call. Kell- [phone] onver darnell Transaction, Provider Unknown - 12/27/2017 11:23 AM PDT Case Management by Wandy Gong RN at 12/27/17 1123 Author: Wandy Gong RN Service: (none) Author Type: Registered Nurse Filed: 12/27/17 1123 Date of Service: 12/27/17 1123 Status: Signed Lead Vulcanizing Operator: Wandy Gong RN (Registered Nurse) 12/27/17 1100 [...] Date of Service: 12/27/17 1115 Status: Signed Lead Vulcanizing Operator: Melyssa Harley RN (Registered Nurse) Per Dr. Israel Rhodes tko NS due to fluid overload onver darnell Transaction, Provider Unknown - 12/27/2017 11:01 AM PDT Progress Notes by Melyssa Harley RN at 12/27/17 110 Author: Melyssa Harley RN Service: (none) Author Type: Registered Nurse Filed: 12/27/17 1132 Date of Service: 12/27/17 110 Status: Signed Lead Vulcanizing Operator: Melyssa Harley RN (Registered Nurse) Pt arrived to ICU room [address]6639 onver darnell Transaction, Provider Unknown - 12/27/2017 7:35 AM PDT Nurse Progress Note by Jane Real RN at 12/27/17 0735 Author: Jane Real RN Service: -Emergency Author Type: Registered Nurse Filed: 12/27/17 1034 Date of Service: 12/27/17 0735 Status: Signed Lead Vulcanizing Operator: Jane Real RN (Registered Nurse) During report yard laborer onur howell came to retrieve pt for procedure. Transfer of care performe d without event. onver darnell Transaction, Provider Unknown - 12/27/2017 2:21 AM PDT Nurse Progress Note by Demian Ling RN at 12/27/17220 Author: Demian Ling RN Service: (none) Author Type: Registered Nurse Filed: 12/27/17 0606 Date of Service: 12/27/17220 Status: Addendum Lead Vulcanizing Operator: Demian Ling RN (Registered Nurse) Related Notes: Original Note by Demian Ling RN (Registered Nurse) filed at 12/27/17 0221 MD not notified of Trop level d/t nursing communication order. Second elevation not called, see nursing communication order. onver darnell Transaction, Provider Unknown - 12/26/2017 7:20 PM PDT Nurse Progress Note by Lilliana Westbroko RN at 12/26/171919 Author: Lilliana Westbrook RN Service: (none) Author Type: Registered Nurse Filed: 12/26/171920 Date of Service: 12/26/171919 Status: Signed Lead Vulcanizing Operator: Lilliana Westbrook RN (Registered Nurse) Chart check review complete. Lilliana Westbrook onver darnell Transaction, Provider Unknown - 12/26/2017 4:50 PM PDT Pharmacy Note by Rolando Russell RPH at 12/26/171649 Author: Rolando Russell RPH Service: Pharmacy Author Type: Pharmacist Filed: 12/26/171649 Date of Service: 12/26/171649 Status: Signed Lead Vulcanizing Operator: Rolando Russell RPH (Pharmacist) Renal Dosing Monitoring: [...] | | | | | [place] [address] | | | | | | [phone] | | | | | | | [...] [address] | | | | | | [place] [address] | | | | | | [phone] | | | | | | | [...] | | | Fingerstick | performed at [facility] | | LAB | | | | [address];[place] | | | | | | [address] | | | | + + + [...] | | | Fingerstick | performed at [facility];[address] | | LAB | | | | [address];[place], [place] | | | | | | [address] | | | | + + + [...] | | | Fingerstick | performed at [facility];[address] | | LAB | | | | [address]indy Rodriges;[place] | | | | | | [address] | | | | + + + [...] | | | Basophils | performed at [facility];[address] | K[address]uL | LAB | | | | [address];[place], [place] | | | | | | [address] | | | | + + + [...] EXTERNAL | | | | performed at [facility];[address] | | LAB | | | | [address];[place] | | | | | | [address] | | | | + + + [...] EXTERNAL | | | | performed at [facility];[address] | | LAB | | | | [address]indy [address];[place], [place] | | | | | | [address] | | | | + + + [...] | | | | | performed at [facility];[address] | | | | | | [facility];[place], [place] | | | | | | [address] | | | | + + + [...] | | | Fingerstick | performed at [facility];[address] | | LAB | | | | [address];[place], [place] | | | | | | [address] | | | | + + + [...] | | | Fingerstick | performed at [facility];[address] | | LAB | | | | [address];[place], [place] | | | | | | [address] | | | | + + + [...] | | | Fingerstick | performed at [facility];[address] | | LAB | | | | [address]indy [address];[place] | | | | | | [address] | | | | + + + [...] | | | Fingerstick | performed at [facility];[address] | | LAB | | | | [address]indy Rodrig[address];[place] | | | | | | [address] | | | | + + + [...] | | | Basophils | performed at [facility], [address] | [address] | LAB | | | | [place], | | | | | | [place] [address] | | | | + + + [...] EXTERNAL | | | | performed at [facility], [address] | | LAB | | | | [address], | | | | | | [place] [address] | | | | + + + [...] EXTERNAL | | | | performed at [facility], [address] | | LAB | | | | [place] [address], | | | | | | [place] [address] | | | | + + + [...] | | | | | performed at [facility], [address] | | | | | | [address], | | | | | | [place] [address] | | | | + + + [...] | | | Fingerstick | performed at [facility];[address] | | LAB | | | | [address]indy [address];[place], [place] | | | | | | [address] | | | | + + + [...] | | | Fingerstick | performed at [facility];[address] | | LAB | | | | [address]indy [address];[place] | | | | | | [address] | | | | + + + [...] | | | Fingerstick | performed at [facility];[address] | | LAB | | | | [address];[place] | | | | | | [address] | | | | + + + [...] | | | Basophils | performed at [facility];[address] | K/uL | LAB | | | | [address]indy Rodriges;[place] | | | | | | [address] | | | | + + + [...] EXTERNAL | | | | performed at [facility];[address] | | LAB | | | | [address]indy [address]es;[place] | | | | | | [address] | | | | + + + [...] EXTERNAL | | | | performed at [facility];[address] | | LAB | | | | [address]indy Rodriges;[place] | | | | | | [address] | | | | + + + [...] EXTERNAL | | | | performed at [facility];[address] | | LAB | | | | [address];[place], [place] | | | | | | [address] | | | | + + + [...] | | | | | | MDRD IDMN traceable | | | | | | equation.Testing | | | | | | performed at [facility] | | | | | | [facility];[place], [place] | | | | | | [address] | | | | + + + [...] | | | Fingerstick | performed at [facility];[address] | | LAB | | | | [address];[place], [place] | | | | | | [address] | | | | + + + [...] | | | Fingerstick | performed at [facility];8 | | LAB | | | | [address];[place], [place] | | | | | | [address] | | | | + + + [...] | | | Fingerstick | performed at [facility] | | LAB | | | | [address];[place], [place] | | | | | | [address] | | | | + + + [...] | | | Fingerstick | performed at [facility] | | LAB | | | | [address]indy Rodriges;[place] | | | | | | [address] | | | | + + + [...] | | | Basophils | performed at [facility] | K/uL | LAB | | | | [address];[place], [place] | | | | | | [address] | | | | + + + [...] | | | | | performed at [facility], [address] | | | | | | [facility], | | | | | | [place] [address] | | | | + + + [...] EXTERNAL | | | | performed at [facility] | | LAB | | | | Cindy Rodriges;[place] | | | | | | [address] | | | | + + + [...] EXTERNAL | | | | performed at [facility];[address] | | LAB | | | | [address] [facility];[place], [place] | | | | | | [address] | | | | + + + [...] | | | Fingerstick | performed at [facility];[address] | | LAB | | | | [address];[place], [place] | | | | | | [address] | | | | + + + [...] + + | Historically converted procedure from [facility] environment | EXTERNAL LAB | + [...] | | | Fingerstick | performed at [facility];[address] | | LAB | | | | [address];[place], [place] | | | | | | [address] | | | | + + + [...] EXTERNAL | | | | performed at [facility];888 | mmol/L | LAB | | | | [address];[place], [place] | | | | | | [address] | | | | + + + [...] EXTERNAL | | | | performed at [facility] [place];[address] | | LAB | | | | [address];[place], [place] | | | | | | [address] | | | | + + + [...] | | | | | INDICATIONS Acute [place] CONCLUSIONS 1. | | | This was [...] TR Vmax: | | | 3.63 m/s Radius Corner Machine Operator: Authenticated by: NASH GENAO MD | | | Report Date/Time: 12-27-2017 18:35:12 | | + + + + + | Procedure Note | + + | Wesley, Rad Conversion - 12/28/2018 5:54 AM PDT Patient Name: Blake HUMPHREYS of | | : 1940 Performing Physician: NASH GENAO, | | INDICATIONS A | | cute [place] CONCLUSIONS 1. This was a technically difficult [...] (A-L): 30.10 ml/m2LAAs A2C: 25.25 | | [id number] A-L A2C: 80.09 mlLALs A2C: 6.76 cmLAAs A4C: 17.87 [id number] A-L A4C: | | 42.38 mlLALs A4C: 6.39 cmTAPSE: 2.27 cmHR: 57.46 BPMAV maxP.37 mmHgAV | | meanP.40 mmHgAV Vmax: 1.61 m/Maurice Vmean: 1.22 m/Maurice VTI: 41.09 cmAVA Vmax: | | 2.19 cm2AVA (VTI): 1.92 [id number] Vmax: 0.00 cm2/m2AVAI (VTI): 0.00 cm2/m2LVCI Dopp: | | 2.22 l/[id number] Dopp: 4.42 l/minHR: 55.98 BPMLVOT maxP.74 mmHgLVOT [...] maxP.80 mmHgTR Vmax: 3.63 m/s | | Radius Corner Machine Operator: Denzleted by: Haily HATCH Date/Time: 12-27-2017 18:35:12 | [...] |TR Vmax: 3.63 m/s | | | |Radius Corner Machine Operator: JR | |Authenticated by: NASH GENAO [...] | | | Fingerstick | performed at [facility] [place] | | LAB | | | | [address];[place] | | | | | | [address] | | | | + + + [...] + + | Historically converted procedure from [facility] Epic environment | EXTERNAL LAB | [...] | | | Fingerstick | performed at [facility];[address] | | LAB | | | | [address];[place] | | | | | | [address] | | | | + + + [...] NEGATIVE Testing | | | performed at [facility];[place] [address] | | + + + + +---------+ [...] femoral | | | artery through a 6-Central African, 23 cm sheath. I walked into the room, | | | introduced myself to the patient. A new timeout was performed, and | | | through the right femoral sheath I advanced a 6-Central African AL1 guide. | | | That was [...] and then I advanced a short BMW Cory wire to the | | | obtuse [...] | over the wire I advanced an [place] 6-Central African retrieval device that | | | retrieved [...] was to do an attempt of a 6-Central African Perclose device, so I | | | [...] | | common femoral artery through a 6-Central African, 23 cm sheath. I walked into the | | room, introduced myself to the patient. A new timeout was performed, and | | through the right femoral sheath I advanced a 6-Central African AL1 guide. That was | | advanced [...] and then I advanced a short BMW Cory wire to the | | obtuse marginal, [...] so over the wire I advanced an [place] 6-Central African | | retrieval device that retrieved a [...] do an attempt | | of a 6-Central African Perclose device, so I removed the sheath [...] | | | POC | performed at [facility]888 | g/dL | LAB | | | | Cindy Rodriges;[place] | | | | | | [address] | | | | + + + [...] | | | Clotting | performed at [facility];[address] | seconds | LAB | | | time, POC | [address]indy [address]es;[place] | | | | | | [address] | | | | + + + [...] | | | Fingerstick | performed at [facility];[address] | | LAB | | | | [address]indy [address];[place] | | | | | | [address] | | | | + + + [...] | | | Clotting | performed at [facility];888 | seconds | LAB | | | time, POC | Cindy Rodriges;[place] | | | | | | [address] | | | | + + + [...] | | | Clotting | performed at [facility];888 | seconds | LAB | | | time, POC | Cindy Rodriges;[place] | | | | | | [address] | | | | + + + [...] | | | Clotting | performed at [facility];888 | seconds | LAB | | | time, POC | Cindy Rodriges;[place] | | | | | | [address] | | | | + + + [...] attempt. The guidewire was passed and a 6-Central African | | | introducer sheath was inserted into the right common femoral artery. | | | A 0.035-inch J-tip guidewire was used to advance a 5-Central African FL4 via | | | the aortic root where it was used to perform selective angiography | | | of the northway left coronary circulation in multiple views in standard | | | fashion. Via guidewire exchange, a 5-Central African FR4 catheter was | | | advanced to the aortic root, but failed to locate the ostium of the | | | northway right coronary artery, which is presumed to [...] J-tip guidewire | | | for a 5-Central African ANAMARIA catheter, which was used to perform [...] easily visible on | | | fluoroscopy. ELY SHOSHONE CORONARY ARTERIES: 1. Left Main: This is [...] | | and a large first septal doctor of naturopathic medicine branch. This septal doctor of naturopathic medicine | | | branch is normal. The [...] widely | | | patent. There are adjt-xy-lnbx collaterals to the third obtuse | | [...] disease. | | | CONCLUSIONS: 1. Severe northway 3-vessel coronary artery disease | | | with an occluded left anterior descending artery and presumed total | | | occlusion of the proximal northway right coronary artery. 2. Patent | | [...] attempt. The guidewire was passed and a 6-Central African introducer sheath was | | inserted into the right common femoral artery. A 0.035-inch J-tip | | guidewire was used to advance a 5-Central African FL4 via the aortic root where it | | was used to perform selective angiography of the northway left coronary circulation | | in multiple views in standard fashion. Via guidewire exchange, a 5-Central African | | FR4 catheter was advanced to the aortic root, but failed to locate the | | ostium of the northway right coronary artery, which is presumed to [...] 0.035-inch J-tip guidewire for a | | 5-Central African ANAMARIA catheter, which was used to perform [...] visible on fluoroscopy. | | | | ELY SHOSHONE CORONARY ARTERIES: | | 1. Left Main: [...] and a large first septal | | doctor of naturopathic medicine branch. This septal doctor of naturopathic medicine branch is normal. The first | | [...] | and is widely patent. There are kyzu-zv-qewh collaterals to the third | | obtuse [...] | | CONCLUSIONS: | | 1. Severe northway 3-vessel coronary artery disease with an occluded left | | anterior descending artery and presumed total occlusion of the proximal | | northway right coronary artery. | | 2. Patent [...] | | | Patient | performed at [facility] | | LAB | | | | [address];[place], [place] | | | | | | [address] | | | | + + + [...] | | | Fingerstick | performed at [facility];[address] | | LAB | | | | Cindy Rodriges;[place] | | | | | | [address] | | | | + + + [...] | | | | | | ACUTE [place] CALLED NURSING | | | | | | UNITREAD BACK RESULTS | | | | | | VERIFIEDKYLEEBEEA B IN 4RP | | | | | | AT 0603 BY TDTesting | | | | | | performed at [facility];[address] | | | | | | [facility];[place] | | | | | | [address] | | | | + + + [...] | | | Basophils | performed at [facility], [address] | K/uL | LAB | | | | [address], | | | | | | [place] [address] | | | | + + + [...] EXTERNAL | | | | performed at [facility], [address] | uIU/mL | LAB | | | | [facility], | | | | | | [place] [address] | | | | + + + [...] EXTERNAL | | | | performed at [facility], [address] | | LAB | | | | [address], | | | | | | [place] [address] | | | | + + + [...] EXTERNAL | | | | performed at [facility], [address] | | LAB | | | | [place], | | | | | | [place] [address] | | | | + + + [...] | EXTERNAL | | | A1c | [facility] | | LAB | | | [...] | | | | | performed at [facility], [address] | | | | | | [place], | | | | | | [place] [address] | | | | + + + [...] | | | Cholesterol | performed at [facility], [address] | | LAB | | | , | [place], | | | | | Calculated, | [place] [address] | | | | | External | [...] | | | | | performed at [facility], [address] | | | | | | [facility], | | | | | | [place] [address] | | | | + + + [...] + + | Historically converted procedure from [facility] environment | EXTERNAL LAB | + [...] | | | | | | ACUTE [place] CALLED TO | | | | | | BANDAR Mccormick RN/4RP AT | | | | | | 0030 BY MWREAD BACK | | | | | | RESULTS VERIFIEDTesting | | | | | | performed at [facility] | | | | | | [facility];[place] | | | | | | [address] | | | | + + + [...] | | | Patient | performed at [facility];[address] | | LAB | | | | [address];[place], [place] | | | | | | [address] | | | | + + + [...] | | | Fingerstick | performed at [facility] | | LAB | | | | Cindy Rodriges;[place] | | | | | | [address] | | | | + + + [...] + + | Historically converted procedure from [facility] environment | EXTERNAL LAB | + [...] | | | | | | ACUTE [place] CALLED | | | | | | RESULTSREAD BACK RESULTS | | | | | | VERIFIEDMESUSHMA W/4RP AT | | | | | | 1751 BY MAHTesting | | | | | | performed at [facility];[address] | | | | | | [facility];[place], [place] | | | | | | [address] | | | | + + + [...] | | | Patient | performed at [facility];[address] | | LAB | | | | Cindy Rodriges;[place] | | | | | | [address] | | | | + + + [...] | | | | | performed at [facility] | | | | | | [address]indy [address];[place], [place] | | | | | | [address] | | | | + + + [...] | | | Fingerstick | performed at [facility];[address] | | LAB | | | | [address];[place], [place] | | | | | | [address] | | | | + + + [...]
--- OUTSIDE RECORDS SUMMARY | ~2019-05-30 | XMS | Encounter Summary ---
Demographics + + + | Address | [address] | | | [place] [address] | + + + | Home Phone [...] Team Providers + +------+ + | Care Engine Repairer Service Name | Role | Phone | + +------+ + PCP | Unavailable | + +------+ + Encounter Details +--------+ + + + + | Date | Type | Department | Care Team | Description | +--------+ + + + + | 03/27/ | Hospital | [facility] | Arthur Childers | Fitting and | | 2009 | Encounter | [facility] | MD Johnnie [address] | adjustment of | | | | CLINICAL DECISION | [address], | automatic | | | | [address] | [place] [address] | implantable cardiac | | | | [place], [place] | [phone] | defibrillator | | | | [address] | | | | | | [phone] | | | +--------+ + + + [...] | | | | | [place] [address] | | | | | | [phone] | | | | | | | | +--------+ + + + + | 06/12/ | Office | Cardiology | Barak Caba | | | 2019 | Visit | | [address] | | | | | | [address] | | | | | | [place] | | | | | | [phone] | | | | | | | [...] [place] | | | | | | [place] [address] | | | | | | [phone] | | | | | | | [...]
--- OUTSIDE RECORDS SUMMARY | ~2019-05-30 | XMS | Encounter Summary ---
Demographics + + + | Address | [address] | | | [place] [address] | + + + | Home Phone | | + + + | Preferred Language | Unknown | + + + | Marital Status | | + + + | Mandaen Affiliation | 1041 | + + + | Race | Unknown | + + + | Ethnic Group | Unknown | + + + Author + + + | Author | [facility] | | | and [place] | + + + | Organization | [facility] | | [...] Team Providers + +------+ + | Care Textile Pin Worker Name | Role | Phone | [...] | month remote | PA-C [address] | [place] | | | | | Procedures | [address] | [address] | | | | | REMOTE | [place] | | | | | | DEVICE CHECK | [address] | [place], [place] | | | | | | [place], | [address] | | | | | | [place] | Phone: | | | | | | [address] | [phone] | | | | | | Phone: | Fax: | | | | | | [phone] | [phone] | | | | | | Fax: | | | | | | | [phone] | | +--------+--------+ + + + + Encounter Details +--------+ + + + + | Date | Type | Department | Care Team | Description | +--------+ + + + + | 03/13/ | Procedure | [facility] | | Cardiac | | 2019 | visit | CARDIOLOGY [place] | | defibrillator in | | | | [address] | | situ (Primary Dx) | | | | [place], [place] | | | | | | [address] | | | | | | [phone] | | | +--------+ + + + [...] | | | | | [place] [address] | | | | | | [phone] | | | | | | | | +--------+ + + + + | 06/12/ | Office | Cardiology | Barak Caba | | | 2019 | Visit | | [address] | | | | | | [address] | | | | | | [place] | | | | | | [address] | | | | | | | [...] | | | | | [place] [address] | | | | | | [phone] | | | | | | | [...] Barajas PA-C : 1940MRN: | | | [id number] Primary cardiology provider: Tres Hewitt Primary | | | electrophysiology provider: Erin Caba Device coordinator of genetic services: | | | [facility] Device type: Dual chamber Battery Longevity: 3 [...]
--- OUTSIDE RECORDS SUMMARY | ~2019-05-30 | XMS | Encounter Summary ---
Demographics + + + | Address | [address] | | | [place] [address] | + + + | Home Phone [...] Team Providers + +------+ + | Care High School Computer Science Teacher Name | Role | Phone | + +------+ + PCP | Unavailable | + +------+ + Encounter Details +--------+ + + + + | Date | Type | Department | Care Team | Description | +--------+ + + + + | 02/09/ | [facility] | [facility] | | | | 2006 - | Encounter | MED CTR MED ONC | | | | | | [address] | | | | 02/10/ | | [place] [address] | | | | 2005 | | [phone] | | | +--------+ + + + [...] | | | | | | [place] [address] | | | | | | [phone] | | | | | | | | +--------+ + + + + | 06/12/ | Office | Cardiology | Barak Caba | | | 2019 | Visit | | [address] | | | | | | [address] | | | | | | [place] | | | | | | [address] | | | | | | | [...] | | | | | [place] [address] | | | | | | [phone] | | | | | | | | +--------+ + + + + | 09/10/ | Procedure | Cardiology | | | | 2020 | visit | | | | +--------+ + + + + documented as of this encounter Visit Diagnoses Not on filedocumented in this encounter"
--- OUTSIDE RECORDS SUMMARY | ~2019-05-30 | XMS | Encounter Summary ---
Demographics + + + | Address | [address] | | | [place] [address] | + + + | Home Phone | | + + + | Preferred Language | Unknown | + + + | Marital Status | | + + + | Church Affiliation | 1041 | + + + | Race | Unknown | + + + | Ethnic Group | Unknown | + + + Author + + + | Author | [facility] | | | and [place] | + + + | Organization | [facility] | | [...] Team Providers + +------+ + | Care Podiatry Teacher Name | Role | Phone | + +------+ + | Pcp, Prov Inactive | PCP | | + +------+ + Encounter Details +--------+ + + + + | Date | Type | Department | Care Team | Description | +--------+ + + + + | 12/13/ | Orders Only | [facility] | Provider, | | | 2018 | | SYSTEM GENERIC OP | [address] | | | | | [address] | [address] | | | | | [address] [place], [place] | [place] [address] | | | | | [address] | | | | | | [phone] | | | +--------+ + + + [...] | | | | | [place] [address] | | | | | | [phone] | | | | | | | | +--------+ + + + + | 06/12/ | Office | Cardiology | Barak Caba | | | 2019 | Visit | | [address] | | | | | | [address] | | | | | | [place] | | | | | | [phone] | | | | | | | [...] [place] | | | | | | [place] [address] | | | | | | [phone] | | | | | | | | +--------+ + + + + | 09/10/ | Procedure | Cardiology | | | | 2019 | visit | | | | +--------+ + + + + documented as of this encounter Visit Diagnoses Not on filedocumented in this encounter"
--- OUTSIDE RECORDS SUMMARY | ~2019-05-30 | XMS | Encounter Summary ---
Demographics + + + | Address | [address] | | | [place] [address] | + + + | Home Phone | | + + + | Preferred Language | Unknown | + + + | Marital Status | | + + + | Mu-Ism Affiliation | 1041 | + + + | Race | Unknown | + + + | Ethnic Group | Unknown | + + + Author + + + | Author | [facility] | | | and [place] | + + + | Organization | [facility] | | [...] Team Providers + +------+ + | Care Metal Burnisher Name | Role | Phone | + +------+ + | Roxana Barajas PA-C | PCP | | + +------+ + Encounter Details +--------+ + + + + | Date | Type | Department | Care Team | Description | +--------+ + + + + | 05/30/ | Orders Only | [facility] | Zheng Saravia | | | 2020 | | PULMONOLOGY [address] | Eddie Bowden MD [address] | | | | | [address] | [address] | | | | | [place], [place] | [place] [address] | | | | | [address] | [phone] | | | | | [phone] | | | +--------+ + + + [...] | | | | | [place] [address] | | | | | | [phone] | | | | | | | | +--------+ + + + + | 06/12/ | Office | Cardiology | Barak Caba | | | 2019 | Visit | | [address] | | | | | | [address] | | | | | | [place] | | | | | | [address] | | | | | | | [...] | | | | | [place] [address] | | | | | | [phone] | | | | | | | | +--------+ + + + + | 09/10/ | Procedure | Cardiology | | | | 2020 | visit | | | | +--------+ + + + + documented as of this encounter Visit Diagnoses Not on filedocumented in this encounter"
--- OUTSIDE RECORDS SUMMARY | ~2019-05-30 | XMS | Clinical Summary ---
Demographics + + + | Address | [address] | | | [place] [address] | + + + | Home Phone | | + + + | Preferred Language | Unknown | + + + | Marital Status | | + + + | Alevism Affiliation | 1041 | + + + | Race | Unknown | + + + | Ethnic Group | Unknown | + + + Author + + + | Author | [facility] | | | and [place] | + + + | Organization | [facility] | | [...] Team Providers + +------+ + | Care Candy Starch Mold Printer Name | Role | Phone | + [...] | | | + + + +---------+------+------+-------+ Active Problems + + + | Problem | Noted Date | + + + | Coronary artery disease involving capitan grande band coronary artery | 12/13/2018 | + + [...] + + + + | Overview: intial JOSE 2003, generator change 03/27/11, [place] | | Scientific Telogen E110, s# [id number]; RV Lead - Guidant 0184, s# | | [id number] (08/15/03); RA Lead - Guidant Fineline II EZ Sterox 4469, | | s# [id number] (08/15/03) | + + + + + [...] + | 05/30/ | Orders Only | Pulmonology | Zheng Saravia | | | 2019 | | | Eddie Bowden MD | | +--------+ + + + + | 05/29/ | Telephone | Pulmonology | Zheng Saravia | Medication Question | | 2019 | | | Eddie Bowden MD | | +--------+ + + + + | 05/25/ | Imaging | Radiology | Provider, | | | 2019 | Exam | | Historical, MD | | +--------+ + + + [...] | Coronary artery | Mother | | [place] | | disease | | | | [...] | | | | | | [place] [address] | | | | | | [phone] | | | | | | | | +--------+ + + + + | 06/12/ | Office | Cardiology | Barak Caba | | | 2019 | Visit | | [address] | | | | | | [address] | | | | | | [place] | | | | | | [phone] | | | | | | | [...] [place] | | | | | | [place] [address] | | | | | | [phone] | | | | | | | [...] + | Vaccine: Zoster | Completed | 05/12/2019, 02/22/2019, | | | | | 01/20/2012 | | + + + + + [...] | + +-------+------+ +--------+--------+--------+ | Implant Id: [id number] - Synergy | Stent | | [place] | | 08/30/ | [id number] | | 3.5 X 16-12/27/2017Implanted: | | | SCIENTIFIC | | 2019 | [id number] | | 12/27/2017 by Aquiles Morris, | | | LARRY - BSCRAIG | | | 50 / | | MD (Quantity not on file) | | | | | | /[id number] | | | | | | | | 257 | + +-------+------+ +--------+--------+--------+ | Implant Id: [id number] - Synergy | Stent | | [place] | | 08/30/ | [id number] | | 3.5 X 16-12/27/2017Implanted: | | | SCIENTIFIC | | 2019 | [id number] | | 12/27/2017 by Auqiles Morris, | | | LARRY - BSCRAIG | | | 50 / | | MD (Quantity not on file) | | | | | | /[id number] | | | | | | | [...] + + from Last 3 Months Results XR Hip Left 2-3 Views (05/12/2019 [...] | + +---------+ + + Device Interrogation - Remote (03/13/2019 8:00 AM PDT) + + + | Narrative | Performed At | + + + | [facility] | | ONUR Neal 03/13/2019 13:16ICD REMOTE INTERROGATION REPORT | | | Name: Yuliana Galindo PCP: Roxana Barajas PA-C : 1940MRN: | | | [id number] Primary cardiology provider: Tres Hewitt Primary | | | electrophysiology provider: Erin Caba Device frame nailer: | | | [place] Scientific Device type: Dual chamber Battery Longevity: 3 [...] +--------+ +---------+--------+ | MEDICARE | MEDICA | [id number] | 11/15/19 | [phone] | | Medica | | | RE | | 04-Pre | 5 | | re | | | PART A | | sent | | | | | | AND B | | | | | | + +--------+ +--------+ +---------+--------+ | MEDICARE | MEDICA | [id number] | 11/15/19 | [phone] | | Medica | | | RE | | 04-Pre | 5 | | re | | | PART A | | sent | | | | | | AND B | | | | | | + +--------+ +--------+ +---------+--------+ | [facility] | IHS | [id number] | 05/17/19 | | | Indemn | | SERVICE | YELLOW | | 04-Pre | | | ity | | | HAWK | | sent | | | | + +--------+ +--------+ +---------+--------+ | [facility] | IHS | [id number] | 05/18/19 | | | Indemn | | SERVICE | YELLOW | | 13-Pre | | | ity | | | HAWK | | sent | | | | + +--------+ +--------+ +---------+--------+ | [place] | MEDICA | [id number] | | [phone] | | Medica | | | ID [place] | | 019-Pr | 2 | | id | | | PLUS | | esent | | | | + +--------+ +--------+ +---------+--------+ | [place] | MEDICA | [id number] | 05/22/19 | [phone] | | Medica | | | ID [...] Person | Self | [birth year] | | [address] | | | al/Fam | | 1941 | [phone] | [place] | | | [place] | | | 7 (Home) | [address] | + +--------+ +--------+ + + | Yuliana Galindo | Person | Self | [birth year] | | [address] | | | al/Fam | | 1941 | [phone] | [place], [place] | | | [place] | | | 7 (Home) | [address] | + +--------+ +--------+ + + Advance Directives + + + + + | Type | Date Recorded | Patient | Explanation | | | | Barrel Loader And Cleaner | | + + + + + | Power of | | | | | Barrel Bung Remover And Dumper | | | | + + + + + | Advance | | | | | Directive | | | | + + + + + | Advance | 03/30/2010 | | | | Directive | 5:59 AM | | | + + + + + | Advance | 03/27/2010 | | NOV 2009 15:39:29:066 GMT | | Directive | 5:59 AM | | | + + + + +
--- OUTSIDE RECORDS SUMMARY | ~2019-05-30 | XMS | Encounter Summary ---
Demographics + + + | Address | [address] | | | [place] [address] | + + + | Home Phone | | + + + | Preferred Language | Unknown | + + + | Marital Status | | + + + | Christian Affiliation | 1041 | + + + | Race | Unknown | + + + | Ethnic Group | Unknown | + + + Author + + + | Author | [facility] | | | and [place] | + + + | Organization | [facility] | | | [...] Team Providers + +------+ + | Care Sampler And Test Preparer Name | Role | Phone | + [...] John CHAPIN | | | | | [phone] | [place] [address] | | +--------+ + + + + [...] | | | | | [place] [address] | | | | | | [phone] | | | | | | | | +--------+ + + + + | 06/12/ | Office | Cardiology | Barak Caba | | | 2019 | Visit | | [address] | | | | | | [address] | | | | | | [place] | | | | | | [address] | | | | | | | | +--------+ + + + + | 06/12/ | Procedure | Cardiology | | | | 2019 | visit | | | | +--------+ + + + + | 06/29/ | Office | Pulmonology | Zhegn Saravia | | | 2019 | Visit | | Eddie Bowden MD [address] | | | | | | [address] | | | | | | [place] [address] | | | | | | [phone] | | | | | | | [...]
--- OUTSIDE RECORDS SUMMARY | ~2019-05-30 | XMS | Encounter Summary ---
Demographics + + + | Address | [address] | | | [place] [address] | + + + | Home Phone | | + + + | Preferred Language | Unknown | + + + | Marital Status | | + + + | Denominational Affiliation | 1041 | + + + | Race | Unknown | + + + | Ethnic Group | Unknown | + + + Author + + + | Author | [facility] | | | and [place] | + + + | Organization | [facility] | | | [...] Team Providers + +------+ + | Care Towel Sewer Name | Role | Phone | + +------+ + PCP | Unavailable | + +------+ + Encounter Details +--------+ + + + + | Date | Type | Department | Care Team | Description | +--------+ + + + + | 01/27/ | [facility] | [facility] | | | | 2006 | Encounter | [facility] | | | | | | [address] | | | | | | [place] | | | | | | [address] | | | | | | [phone] | | | +--------+ + + + [...] | | | | | | [place] [address] | | | | | | [phone] | | | | | | | | +--------+ + + + + | 06/12/ | Office | Cardiology | Barak Caba | | | 2019 | Visit | | [address] | | | | | | [address] | | | | | | [place] | | | | | | [address] | | | | | | | [...] | | | | | [place] [address] | | | | | | [phone] | | | | | | | | +--------+ + + + + | 09/10/ | Procedure | Cardiology | | | | 2020 | visit | | | | +--------+ + + + + documented as of this encounter Visit Diagnoses Not on filedocumented in this encounter"
--- OUTSIDE RECORDS SUMMARY | ~2019-05-30 | XMS | Encounter Summary ---
Demographics + + + | Address | [address] | | | [place] [address] | + + + | Home Phone [...] Providers + +------+ + | Care Operational Meteorologist Name | Role | Phone | + [...] + + | 05/29/ | Telephone | [facility] | Zheng Saravia | Medication Question | | 2020 | | PULMONOLOGY [address] | Eddie Bowden MD [address] | | | | | [place] | [address] | | | | | [place], [place] | [place] [address] | | | | | [address] | [phone] | | | | | [phone] | | | +--------+ + + + [...] | | | | | [place] [address] | | | | | | [phone] | | | | | | | [...] | | | | | [place] [address] | | | | | | [phone] | | | | | | | | +--------+ + + + + | 09/10/ | Procedure | Cardiology | | | | 2019 | visit | | | | +--------+ + + + + documented as of this encounter Visit Diagnoses Not on filedocumented in this encounter"
--- OUTSIDE RECORDS SUMMARY | ~2019-05-30 | XMS | Encounter Summary ---
Demographics + + + | Address | [address] | | | [place] [address] | + + + | Home Phone | | + + + | Preferred Language | Unknown | + + + | Marital Status | | + + + | Catholic Affiliation | 1041 | + + + | Race | Unknown | + + + | Ethnic Group | Unknown | + + + Author + + + | Author | [facility] | | | and [place] | + + + | Organization | [facility] | | [...] Team Providers + +------+ + | Care Bindery Machine Tender Name | Role | Phone | + +------+ + | Roxana Barajas PA-C | PCP | | + +------+ + Encounter Details +--------+ + + + + | Date | Type | Department | Care Team | Description | +--------+ + + + + | 12/30/ | Orders Only | [facility] | Dawn Burrows | Essential (primary) | | 2019 | | CARDIOLOGY [place] | [address] | hypertension; Mixed | | | | [address] | [address] | hyperlipidemia | | | | [address] | [place] [address] | | | | | [place] | [phone] | | | | | [address] | | | | | | [phone] | | | +--------+ + + + [...] | | | | | [place] [address] | | | | | | [phone] | | | | | | | | +--------+ + + + + | 06/12/ | Office | Cardiology | Barak Caba | | 2019 | Visit | | [address] | | | | | | [facility] | | | | | | [place] | | | | | | [address] | | | | | | | [...] | | | | | [place] [address] | | | | | | [phone] | | | | | | | [...]
--- OUTSIDE RECORDS SUMMARY | ~2019-05-30 | XMS | Encounter Summary ---
Demographics + + + | Address | [address] | | | [place] [address] | + + + | Home Phone [...] Team Providers + +------+ + | Care Statistics Intern Name | Role | Phone | + +------+ + | Roxana Barajas PA-C | PCP | | + +------+ + Encounter Details +--------+ + + + + | Date | Type | Department | Care Team | Description | +--------+ + + + + | 02/26/ | Orders Only | [facility] | Tres Hewitt Sharonda, | | | 2014 | | [facility] [place] | [address] | | | | | E[address] | [place] [address] | | | | | [facility] [place] | [phone] | | | | | [address] | | | | | | [phone] | | | +--------+ + + + [...] | | | | | [place] [address] | | | | | | [phone] | | | | | | | | +--------+ + + + + | 06/12/ | Office | Cardiology | Barak Caba | | | 2019 | Visit | | [address] | | | | | | [address] [facility] | | | | | | F [place] | | | | | | [phone] | | | | | | | [...] [place] | | | | | | [place] [address] | | | | | | [phone] | | | | | | | [...] MV A Jarrod: 1.29 m/s MV Dec [place]: 3.15 m/s2 MV | | | DecT: [...] TR Vmax: 2.95 m/s | | | Professional Sports Scout: JOSÉ ANTONIO Authenticated by: Tres Hewitt MD, FACC, FACP, | | | FASME Report Date/Time: 02-28-2015 18:06:49 | | + + + + + | Procedure Note | + + | Wesley, Rad Conversion - 01/05/2019 11:11 PM PDT Patient Name: Blake HUMPHREYS of | | : 1940 Performing Physician: Tres Hewitt MD, [facility], | | FACP, | | FASNC INDICATIONS--------- [...] cmLVPWd: 1.26 cmLVOT Area: | | 3.40 [id number] Diam: 2.08 cm%FS: 17.35 %EF(Teich): 35.72 %ESV(Teich): [...] (A-L): 24.59 ml/m2LAAs | | A2C: 19.49 [id number] A-L A2C: 63.19 mlLALs A2C: 5.10 cmLAAs A4C: 15.24 [id number] | | A-L A4C: 35.39 mlLALs A4C: 5.57 cmRAAs: 15.89 [id number] A-L: 38.86 mlRAESV MOD: | | 40.41 mlRALs: 5.51 cmAo Diam: 2.92 cmAo/LA: 0.62LA Diam: 4.69 cmLA/Ao: 1.60AV | | maxP.55 mmHgAV meanP.97 mmHgAV Vmax: 1.54 m/Maurice Vmean: 1.17 m/Maurice VTI: | | 35.32 cmAVA Vmax: 2.32 cm2AVA (VTI): 2.20 jm1GRFW (Vmax): 0.00 cm2/m2AVAI (VTI): | | 0.00 cm2/m2LVOT maxP.45 mmHgLVOT meanP.42 mmHgLVSI Dopp: 38.73 | | ml/m2LVSV Dopp: 77.85 mlLVOT Vmax: 1.05 m/sLVOT Vmean: 0.74 m/sLVOT VTI: 22.88 | | cmMV A Jarrod: 1.29 m/sMV Dec [place]: 3.15 m/s2MV DecT: 273.13 msMV E Jarrod: 0.86 | | m/sMV E/A Ratio: 0.66MV PHT: 79.21 msMVA By PHT: 2.77 wr4Xkeswz e': 0.03 | | m/sSeptal E/e': 22.10Lateral e': 0.06 m/sLateral E/e': 12.90PAEDP: 9.92 | | mmHgPRend P.92 mmHgPRend Vmax: 1.10 m/sPV maxP.12 mmHgPV Vmax: 1.12 | | m/sRAP: 5 mmHgRVSP: 39.84 mmHgTR maxP.84 mmHgTR Vmax: 2.95 m/s Professional Sports Scout: | | RKAuthenticated by: Tres Hewitt MD, [...] A Jarrod: 1.29 m/s | |MV Dec [place]: 3.15 m/s2 | |MV DecT: 273.13 ms [...] |TR Vmax: 2.95 m/s | | | |Professional Sports Scout: JOSÉ ANTONIO | |Authenticated by: Tres Hewitt MD, FACC, FACP, [facility] | |Report Date/Time: 02-28-2015 18:06:49 | | [...]
--- OUTSIDE RECORDS SUMMARY | ~2019-05-30 | XMS | Encounter Summary ---
Demographics + + + | Address | [address] | | | [place] [address] | + + + | Home Phone [...] Providers + +------+ + | Care Director Digital Communications Name | Role | Phone | + [...] | | | | | | | [place] | | | | | | | [address] | | | | | | | Phone: | | | | | | | [phone] | | | | | | | Fax: | | | | | | | [phone] | +--------+--------+ + + + + Encounter Details +--------+---------+ + + + | Date | Type | Department | Care Team | Description | +--------+---------+ + + + | 02/27/ | Office | [facility] | Zheng Saravia | Chronic obstructive | | 2019 | Visit | PULMONOLOGY [address] | Eddie Bowden MD [address] | pulmonary disease, | | | | [place] | [place] | unspecified COPD | | | | [place], [place] | [place] [address] | type (HCC) (Primary | | | | [address] | [phone] | Dx); Personal | | | | [phone] | | history of tobacco | | [...] might be dif ferent from the original. [facility] PULMONOLOGY [address] [place] [address] HISTORY: Chief Complaint: I have been asked [...] for COPD. She was recently admitted at [facility] for an "acute bronchitis". She was treated [...] h/o tobacco abuse Coronary artery disease involving poarch coronary artery s/p CABG x3 (SVG to [...] improved to 50-55% on echo 02/18/15 [place] (myocardial infarction) 1993 Osteoarthritis Pulmonary embolism (FORMERLY [...] PLACEMENT intial AICD 2003, generator change 03/27/11, [place] [employer] Telogen E110, s# [id number]; R V Lead - Guidant 0184, s# [id number] (08/15/03); RA Lead - Guidant Fineline II EZ Sterox 4469, s # [id number] (08/15/03) COLONOSCOPY CORONARY ARTERY BYPASS GRAFT 1994 [...] EF 40-45%, mild MR, mild TR, tr AK, RVSP 58-63 Current Medications: Outpatient Medications acetaminophen [...] of Onset Coronary artery disease Mother 60 [place] Alzheimer's disease Brother Other (see comment) Brother [...] lungs. - she was recently admitted at [facility] with what sounds like a COPD exacerbation. [...] Saravia MD Pulmonary and Critical Care Medicine [facility] Pulmonology documented in this encounter Plan [...] | | | | | [place] [address] | | | | | | [phone] | | | | | | | | +--------+ + + + + | 06/12/ | Office | Cardiology | Barak Caba | | | 2019 | Visit | | [address] | | | | | | [facility] [facility] | | | | | | [place] | | | | | | [phone] | | | | | | | [...] [place] | | | | | | [place] [address] | | | | | | [phone] | | | | | | | [...]
--- OUTSIDE RECORDS SUMMARY | ~2019-05-30 | XMS | Encounter Summary ---
Demographics + + + | Address | [address] | | | [place] [address] | + + + | Home Phone | | + + + | Preferred Language | Unknown | + + + | Marital Status | | + + + | Holiness Affiliation | 1041 | + + + | Race | Unknown | + + + | Ethnic Group | Unknown | + + + Author + + + | Author | [facility] | | | and [place] | + + + | Organization | [facility] | [...] Providers + +------+ + | Care Operations Consultant Name | Role | Phone | + +------+ + | Roxana Barajas PA-C | PCP | | + +------+ + Encounter Details +--------+ + + + + | Date | Type | Department | Care Team | Description | +--------+ + + + + | 05/30/ | Orders Only | [facility] | Zheng Saravia | | | 2020 | | PULMONOLOGY [address] | Eddie Bowden MD [address] | | | | | [address] | [address] | | | | | [place], [place] | [place] [address] | | | | | [address] | [phone] | | | | | [phone] | | | +--------+ + + + [...] | | | | | [place] [address] | | | | | | [phone] | | | | | | | | +--------+ + + + + | 06/12/ | Office | Cardiology | Barak Caba | | | 2019 | Visit | | [address] | | | | | | [address] | | | | | | [place] | | | | | | [address] | | | | | | | [...] | | | | | | [place] [address] | | | | | | [phone] | | | | | | | | +--------+ + + + + | 09/10/ | Procedure | Cardiology | | | | 2020 | visit | | | | +--------+ + + + + documented as of this encounter Visit Diagnoses Not on filedocumented in this encounter"
--- OUTSIDE RECORDS SUMMARY | ~2019-05-30 | XMS | Encounter Summary ---
Demographics + + + | Address | [address] | | | [place] [address] | + + + | Home Phone [...] Team Providers + +------+ + | Care Unit Reactor Operator Name | Role | Phone | + +------+ + | Roxana Barajas PA-C | PCP | | + +------+ + Encounter Details +--------+ + + + + | Date | Type | Department | Care Team | Description | +--------+ + + + + | 03/27/ | Orders Only | [facility] | Arthur Childers | | | 2009 | | [facility] | MD Johnnie [address] | | | | | CLINICAL LABORATORY | [address], | | | | | [address] | [place] [address] | | | | | [place], [place] | [phone] | | | | | [address] | | | | | | [phone] | | | +--------+ + + + [...] | | | | | [place] [address] | | | | | | [phone] | | | | | | | [...] | | | | | | [place] [address] | | | | | | [phone] | | | | | | | [...] EXTERNAL LAB | | Testing performed at [facility];[address] [place] [address];[place] [address] MRSA PCR | | | NEGATIVE Testing performed at | | | [facility];[address] [place] [address];[place] [address] | | + + + + +---------+ + + | Performing | Address | City/State/Zipcode | Phone Number | | Organization | | | | + +---------+ + + | EXTERNAL LAB | | | | + +---------+ + + documented in this encounter Visit Diagnoses Not on filedocumented in this encounter"
--- OUTSIDE RECORDS SUMMARY | ~2019-05-30 | XMS | Clinical Summary ---
Demographics + + + | Address | [address] | | | [place] [address] | + + + | Home Phone [...] Team Providers + +------+ + | Care Cotton Baler Name | Role | Phone | + [...] + + | Coronary artery disease involving holy cross coronary artery | 12/13/2018 | + + [...] Overview: intial JOSE 2003, generator change 03/27/11, [place] | | Scientific Telogen E110, s# [id number]; RV Lead - Guidant 0184, s# | | [id number] (08/15/03); RA Lead - Guidant Fineline II EZ Sterox 4469, | | s# [id number] (08/15/03) | + + + + + [...] | Coronary artery | Mother | | [place] | | disease | | | | [...] | | | | | [place] [address] | | | | | | [phone] | | | | | | | | +--------+ + + + + | 06/12/ | Office | Cardiology | Barak Caba | | | 2019 | Visit | | [address] | | | | | | [address] | | | | | | [place] | | | | | | [phone] | | | | | | | [...] [place] | | | | | | [place] [address] | | | | | | [phone] | | | | | | | [...] | + +-------+------+ +--------+--------+--------+ | Implant Id: [id number] - Synergy | Stent | | [place] | | 08/30/ | [id number] | | 3.5 X 16-12/27/2017Implanted: | | | SCIENTIFIC | | 2019 | [id number] | | 12/27/2017 by Aquiles Morris, | | | LARRY - BSCRAIG | | | 50 / | | MD (Quantity not on file) | | | | | | /[id number] | | | | | | | | 257 | + +-------+------+ +--------+--------+--------+ | Implant Id: [id number] - Synergy | Stent | | [place] | | 08/30/ | [id number] | | 3.5 X 16-12/27/2017Implanted: | | | SCIENTIFIC | | 2019 | [id number] | | 12/27/2017 by Aquiles Morris, | | | LARRY - BSCRAIG | | | 50 / | | MD (Quantity not on file) | | | | | | /[id number] | | | | | | | [...] Barajas PA-C : 1940MRN: | | | [id number] Primary cardiology provider: Tres Hewitt Primary | | | electrophysiology provider: Erin Caba Device veterans adviser: | | | [employer] Device type: Dual chamber Battery Longevity: [...] +--------+ +---------+--------+ | MEDICARE | MEDICA | [id number] | 11/15/19 | [phone] | | Medica | | | RE | | 04-Pre | 5 | | re | | | PART A | | sent | | | | | | AND B | | | | | | + +--------+ +--------+ +---------+--------+ | MEDICARE | MEDICA | [id number] | 11/15/19 | [phone] | | Medica | | | RE | | 04-Pre | 5 | | re | | | PART A | | sent | | | | | | AND B | | | | | | + +--------+ +--------+ +---------+--------+ | [facility] | IHS | [id number] | 05/17/19 | | | Indemn | | SERVICE | YELLOW | | 04-Pre | | | ity | | | HAWK | | sent | | | | + +--------+ +--------+ +---------+--------+ | [facility] | IHS | [id number] | 05/18/19 | | | Indemn | | SERVICE | YELLOW | | 13-Pre | | | ity | | | HAWK | | sent | | | | + +--------+ +--------+ +---------+--------+ | [place]ID [place] | MEDICA | [id number] | | [phone] | | Medica | | | [place] | | 019-Pr | 2 | | id | | | PLUS | | esent | | | | + +--------+ +--------+ +---------+--------+ | [place] | MEDICA | [id number] | 05/22/19 | [phone] | | Medica | | | ID [...] Person | Self | [birth year] | | [address] | | | al/Fam | | 1941 | [phone] | [place] | | | [place] | | | 7 (Home) | [address] | + +--------+ +--------+ + + | Yuliana Galindo | Person | Self | [birth year] | | [address] | | | al/Fam | | 1941 | [phone] | [place], [place] | | | [place] | | | 7 (Home) | [address] | + +--------+ +--------+ + + Advance Directives + + + + + | Type | Date Recorded | Patient | Explanation | | | | Diamond Die Maker | | + + + + + | Power of | | | | | [employer]phol[employer] [place] [employer] | | | | + + + [...]
--- OUTSIDE RECORDS SUMMARY | ~2019-05-30 | XMS | Encounter Summary ---
Demographics + + + | Address | [address] | | | [place] [address] | + + + | Home Phone | | + + + | Preferred Language | Unknown | + + + | Marital Status | | + + + | Confucianist Affiliation | [id number] | + + + | Race | Unknown | + + + | Ethnic Group | Unknown | + + + Author + + + | Author | [facility] | | | and [place] | + + + | Organization | [facility] | | | and [place] | + [...] Team Providers + +------+ + | Care Entry Level Recruiter Name | Role | Phone | + [...] | SR | | | | | [phone] | | | +--------+ + + + [...] | | | | | | [place] [address] | | | | | | [phone] | | | | | | | | +--------+ + + + + | 06/12/ | Office | Cardiology | Barak Caba | | | 2019 | Visit | | [address] | | | | | | [address] | | | | | | [place] | | | | | | [address] | | | | | | | [...] | | | | | [place] [address] | | | | | | [phone] | | | | | | | | +--------+ + + + + | 09/10/ | Procedure | Cardiology | | | | 2020 | visit | | | | +--------+ + + + + documented as of this encounter Visit Diagnoses Not on filedocumented in this encounter
--- OUTSIDE RECORDS SUMMARY | ~2019-05-30 | XMS | Encounter Summary ---
Demographics + + + | Address | [address] | | | [place] [address] | + + + | Home Phone [...] Team Providers + +------+ + | Care Drawer In Stitch Bonding Machine Name | Role | Phone | + +------+ + PCP | Unavailable | + +------+ + Encounter Details +--------+ + + + + | Date | Type | Department | Care Team | Description | +--------+ + + + + | 03/31/ | Hospital | [facility] | Lydia Christensen | | | 2006 | Encounter | [facility] | MD [address] | | | | | CENTER [address] | [address] [place], | | | | | [place] | [place] [address] | | | | | [address] | [phone] | | | | | [phone] | | | +--------+ + + + [...] | | | | | [place] [address] | | | | | | [phone] | | | | | | | | +--------+ + + + + | 06/12/ | Office | Cardiology | Barak Caba | | | 2019 | Visit | | [address] | | | | | | [address] | | | | | | [place] | | | | | | [phone] | | | | | | | [...] [place] | | | | | | [place] [address] | | | | | | [phone] | | | | | | | | +--------+ + + + + | 09/10/ | Procedure | Cardiology | | | | 2019 | visit | | | | +--------+ + + + + documented as of this encounter Visit Diagnoses Not on filedocumented in this encounter"
--- OUTSIDE RECORDS SUMMARY | ~2019-05-30 | XMS | Encounter Summary ---
Demographics + + + | Address | [address] | | | [place] [address] | + + + | Home Phone [...] + | Author | [facility] | | | and [place] | + + + | Organization | [facility] | | [...] Team Providers + +------+ + | Care Boring Machine Operator Horizontal Name | Role | Phone | + +------+ + | Roxana Barajas PA-C | PCP | | + +------+ + Encounter Details +--------+ + + + + | Date | Type | Department | Care Team | Description | +--------+ + + + + | 02/26/ | Orders Only | [facility] | Tres Hewitt Sharonda, | | | 2014 | | [place] | [address] | | | | | [address] | [place] [address] | | | | | [facility] [place] | [phone] | | | | | [address] | | | | | | [phone] | | | +--------+ + + + [...] | | | | | [place] [address] | | | | | | [phone] | | | | | | | | +--------+ + + + + | 06/12/ | Office | Cardiology | Barak Caba | | | 2019 | Visit | | [address] | | | | | | [facility] | | | | | | [place] | | | | | | [phone] | | | | | | | [...] [place] | | | | | | [place] [address] | | | | | | [phone] | | | | | | | [...] MV A Jarrod: 1.29 m/s MV Dec Linn: 3.15 m/s2 MV | | | DecT: [...] TR Vmax: 2.95 m/s | | | Research And Development Researcher: JOSÉ ANTONIO Authenticated by: Tres Hewitt MD, FACC, FACP, | | | FASCA Report Date/Time: 02-28-2015 18:06:49 | | + + + + + | Procedure Note | + + | Wesley, Rad Conversion - 01/05/2019 11:11 PM PDT Patient Name: Blake HUMPHREYS of | | : 1940 Performing Physician: Tres Hewitt MD, [facility], | | FACP, | | FASNC INDICATIONS--------- [...] cmLVPWd: 1.26 cmLVOT Area: | | 3.40 [id number] Diam: 2.08 cm%FS: 17.35 %EF(Teich): 35.72 %ESV(Teich): [...] (A-L): 24.59 ml/m2LAAs | | A2C: 19.49 [id number] A-L A2C: 63.19 mlLALs A2C: 5.10 cmLAAs A4C: 15.24 [id number] | | A-L A4C: 35.39 mlLALs A4C: 5.57 cmRAAs: 15.89 [id number] A-L: 38.86 mlRAESV MOD: | | 40.41 mlRALs: 5.51 cmAo Diam: 2.92 cmAo/LA: 0.62LA Diam: 4.69 cmLA/Ao: 1.60AV | | maxP.55 mmHgAV meanP.97 mmHgAV Vmax: 1.54 m/Maurice Vmean: 1.17 m/Maurice VTI: | | 35.32 cmAVA Vmax: 2.32 cm2AVA (VTI): 2.20 be0SUBU (Vmax): 0.00 cm2/m2AVAI (VTI): | | 0.00 cm2/m2LVOT maxP.45 mmHgLVOT meanP.42 mmHgLVSI Dopp: 38.73 | | ml/m2LVSV Dopp: 77.85 mlLVOT Vmax: 1.05 m/sLVOT Vmean: 0.74 m/sLVOT VTI: 22.88 | | cmMV A Jarrod: 1.29 m/sMV Dec Linn: 3.15 m/s2MV DecT: 273.13 msMV E Jarrod: 0.86 | | m/sMV E/A Ratio: 0.66MV PHT: 79.21 msMVA By PHT: 2.77 [id number] e': 0.03 | | m/sSeptal E/e': 22.10Lateral e': 0.06 m/sLateral E/e': 12.90PAEDP: 9.92 | | mmHgPRend P.92 mmHgPRend Vmax: 1.10 m/sPV maxP.12 mmHgPV Vmax: 1.12 | | m/sRAP: 5 mmHgRVSP: 39.84 mmHgTR maxP.84 mmHgTR Vmax: 2.95 m/s Research And Development Researcher: | | RKAuthenticated by: Tres Hewitt MD, [...] A Jarrod: 1.29 m/s | |MV Dec Linn: 3.15 m/s2 | |MV DecT: 273.13 ms [...] |TR Vmax: 2.95 m/s | | | |Research And Development Researcher: JOSÉ ANTONIO | |Authenticated by: Tres Hewitt MD, FACC, FACP, [facility] | |Report Date/Time: 02-28-2015 18:06:49 | [...]
--- OUTSIDE RECORDS SUMMARY | 2019-05-30 22:18 | XMS ---
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 Current Orthopedic Surgery \T\ Fracture Clinic PHONE: Unknown Shaheed has no Care Guidelines for this patient. Care History Medical/Surgical 02/13/2019 [facility] PATIENT- [facility] ELIGIBLE PLEASE REFER PATIENT TO [facility] FOR NON EMERGENT MEDICAL NEEDS. [facility] CAN SEE PATIENTS SAME DAY FOR APTS IF PATIENT CALLS FIRST THING IN THE MORNING. EAyana. VISIT COUNT (12 MO.) 4 [facility]. TOTAL 4 NOTE: Visits indicate total known visits. ED/UCC VISIT TRACKING (12 MO.) 05/30/2019 22:17 [facility] [place] TYPE: Emergency COMPLAINT: - SOB 05/09/2019 11:36 [facility] [place] TYPE: Emergency COMPLAINT: - HIP PAIN, NON INJ DIAGNOSES: - Other meterman (current) drug therapy - Chronic obstructive pulmonary disease, unspecified - Pain in left hip - Strain of muscle, fascia and tendon of left hip, init encntr - Nicotine dependence, unspecified, uncomplicated - computer terminal operator (current) use of aspirin - computer terminal operator (current) use of oral hypoglycemic drugs - computer terminal operator (current) use of systemic steroids - Exposure to other specified factors, initial encounter 03/19/2019 12:13 [facility] [place] TYPE: Emergency COMPLAINT: - CHEST PAIN 02/11/2019 15:05 [facility] [place] TYPE: Emergency COMPLAINT: - SOB, COUGH INPATIENT VISIT TRACKING (12 MO.) 03/19/2019 12:14 [facility] [place] TYPE: Observation COMPLAINT: - ORTHOSTATIC HYPOTENSION DIAGNOSES: - MCC (current) use of aspirin - Chronic respiratory failure with hypoxia - 1 Type 2 diabetes mellitus without complications - Chest pain, unspecified - Athscl heart disease of [place] coronary artery w/o ang pctrs - Presence of coronary angioplasty implant and graft - Hypertensive heart disease with heart failure - Nicotine dependence, cigarettes, uncomplicated - Presence of automatic (implantable) cardiac defibrillator - MCC (current) use of inhaled steroids - Do not resuscitate - Chronic obstructive pulmonary disease, unspecified - Presence of aortocoronary bypass graft - MCC (current) use of systemic steroids - Chronic systolic (congestive) heart failure - Orthostatic hypotension - Unspecified mood [affective] disorder - Other fdc (current) drug therapy 02/11/2019 18:[address] [facility] [place] TYPE: Medical Surgical COMPLAINT: - COPD EXACERBATION DIAGNOSES: - Do not resuscitate - Nicotine dependence, cigarettes, uncomplicated - Chronic systolic (congestive) heart failure - Chr obstructive pulmon disease with (acute) lower resp infct - Constipation, unspecified - Other fdc (current) drug therapy - Encounter for immunization [...] tophaceous dis - Athscl heart disease of [place] coronary artery w/o ang pctrs - Chr obstructive pulmon disease with (acute) lower resp infct - Chronic obstructive pulmonary disease w (acute) exacerbation - Pneumonia, unspecified organism - Chronic obstructive pulmonary disease w (acute) exacerbation - Constipation, unspecified - computer terminal operator (current) 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
[2019-05-31] MEDS ORDERED: AZITHROMYCIN250 MG PO (01:12)
[2019-05-31] MEDS ORDERED: CEFDINIR300 MG PO (01:13)
[2019-05-31] MEDS ORDERED: PREDNISONE20 MG PO (01:22)
--- NOTE | 2019-05-31 19:28 | EKG ---
[facility] [address] [facility] [place] [address] Signed Normal sinus rhythm Low voltage QRS Incomplete right bundle branch block Possible Inferior infarct (cited on or before 26-DEC-2017) Abnormal ECG When compared with ECG of 19-MAR-2019 14:40, premature ventricular complexes are no longer present Confirmed by MATTHIAS HOOD MD ([id number]) on 05/31/2019 7:27:58 PM Electronically Signed By: MATTHIAS HOOD MD 05/31/19 [id number] PATIENT NAME: JUNIOR HUMPHREYS JARRET Electrocardiogram DATE OF : 36 PHYSICIAN: MATTHIAS HOOD MD REPORT #: [id number] REPORT IS CONFIDENTIAL AND NOT TO BE RELEASED WITHOUT AUTHORIZATION
== END 2019-05-31 01:52 | disposition home or self-care (01) ==
LOC: ED 22:16
DX: J44.1 Chronic obstructive pulmonary disease with (acute) exacerbation (principal); I25.10 Atherosclerotic heart disease of native coronary artery without angina pectoris; Z99.81 Dependence on supplemental oxygen; Z87.891 Personal history of nicotine dependence; Z79.899 Other long term (current) drug therapy; Z79.84 Long term (current) use of oral hypoglycemic drugs; Z79.82 Long term (current) use of aspirin
CPT/HCPCS: 71045; 80053; 81001; 83605; 83880; 84484; 85025; 87502; 93005; 93010; 94644; 96374; 99285-25; J2930

== ENCOUNTER 2020-01-22 02:34 | Observation (INO) | payer MEDICARE, OTHER ==
[~2020-01-22] VITALS: Ht 160 cm; Wt 92.6 kg
--- OUTSIDE RECORDS SUMMARY | ~2020-01-22 | XMS | Encounter Summary ---
Demographics + + + | Address | [address] | | | [place] [address] | + + + | Home Phone | | + + + | Preferred Language | Unknown | + + + | Marital Status | | + + + | Jainism Affiliation | [id number] | + + + | Race | or | + + + | Ethnic Group | Not or | + + + Author + + + | Author | [facility] | | | and [place] | + + + | Organization | [facility] | | | and [place] | + + + | Address | Unknown | + + + | Phone | Unavailable | + + + Support + + +---------+ + | Name | Relationship | Address | Phone | + + +---------+ + | Kamila Jackson | ECON | Unknown | | + + +---------+ + | Martha Montenegro | ECON | Unknown | | + + +---------+ + Care Team Providers + +------+ + | Care Footwear Sales Coordinator Name | Role | Phone | + +------+ + | Aleksander Humphries MD | PCP | | + +------+ + Reason for Visit +--------+--------+ + | Reason | Onset | Comments | | | Date | | +--------+--------+ + | Other | 10/15/ | | | | 2019 | | +--------+--------+ + Encounter Details +--------+ + + + + | Date | Type | Department | Care Team | Description | +--------+ + + + + | 10/15/ | Telephone | [facility] | Manuel Wesley | Other | | 2019 | | ORTHOPEDIC SURGERY | [address] | | | | | [address] | [place] [facility] | | | | | [place] | [place] [address] | | | | | [address] | [phone] | | | | | [phone] | | | +--------+ + + + + Social History + +-------+ +--------+------+ | Tobacco Use | Types | Packs/Day | Years | Date | | | | | Used | | + +-------+ +--------+------+ | Heavy Tobacco Smoker | | 0.5 | | | + +-------+ +--------+------+ + +---+---+---+ | Smokeless Tobacco: | | | | | Never Used | | | | + +---+---+---+ + + | Comments: cut down to 0.5 ppd several weeks ago | + + + + +---------+ + | Alcohol Use | Drinks/Week | oz/Week | Comments | + + +---------+ + | Not Currently | | | | + + +---------+ + + + + | Sex Assigned at | Date Recorded | | | | + + + | Not on file | | + + + documented as of this encounter Miscellaneous Notes Telephone Encounter - Charmaine Granados CMA - 10/16/2019 9:43 AM PDTCalled patient to verify who her primary care provider is. Patient stated she sees Dr Aleksander Humphries. 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 I let her know patient has a follow up appointment on 10/17/19 with Manuel Wesley. I let patient know per Garret's last notes he states patient will need to g et a current A1C below 7.5, lose some weight and pass the nicotine test. Caregiver stated lorena walters is still currently smoking and she would like to cancel her appointment for tomorrow a nd will call once she is ready to move forward with surgery. documented in this encounter Plan of Treatment +--------+ + + + + | Date | Type | Specialty | Care Team | Description | +--------+ + + + + | 03/18/ | Procedure | Cardiology | | | | 2019 | visit | | | | +--------+ + + + + | 07/22/ | Office | Cardiology | Barak Caba | | | 2020 | Visit | | [address] | | | | | | [address] | | | | | | [place] [address] | | | | | | [phone] | | | | | | | | +--------+ + + + + | 07/22/ | Procedure | Cardiology | | | | 2020 | visit | | | | +--------+ + + + + documented as of this encounter Visit Diagnoses Not on filedocumented in this encounter"
--- OUTSIDE RECORDS SUMMARY | ~2020-01-22 | XMS | Clinical Summary ---
Demographics + + + | Address | [address] | | | [place] [address] | + + + | Home Phone | | + + + | Preferred Language | Unknown | + + + | Marital Status | | + + + | Jain Affiliation | [id number] | + + + | Race | or | + + + | Ethnic Group | Not or | + + + Author + + + | Author | [facility] | | | and [place] | + + + | Organization | [facility] | | | and [...] Team Providers + +------+ + | Care Theater Education Teacher Name | Role | Phone | + +------+ + | Aleksander Humphries MD | PCP | | + +------+ + Allergies No Known Allergies Medications + + + +---------+------+------+-------+ | Medication | Sig | Dispensed | Refills | Star | End | Statu | | | | | | t | Date | s | | | | | | Date | | | + + + +---------+------+------+-------+ | ipratropium | Take or use as | | 0 | 09/1 | | Activ | | (ATROVENT HFA) 17 | needed. | | | 3/20 | | e | | mcg/puff inhaler | | | | 12 | | | + + + +---------+------+------+-------+ | KCl in | Take 1 tablet by | | 0 | 09/1 | | Activ | | Dextrose-NaCl | mouth daily | | | 3/20 | | e | | 10-5-0.2 MEQ/L-%-% | | | | 12 | | | | SOLN | | | | | | | + + + +---------+------+------+-------+ | quiNINE | Take 324 mg by mouth | | 0 | 09/1 | | Activ | | (QUALAQUIN) 324 mg | nightly. | | | 3/20 | | e | | capsule | | | | 12 | | | + + + +---------+------+------+-------+ | warfarin | 3 mg four days a | | 0 | 09/1 | | Activ | | (COUMADIN) 3 MG | week, 4.5 mg three | | | 3/20 | | e | | tablet | days a week. | | | 12 | | | + + + +---------+------+------+-------+ | simvastatin | Take 40 mg by mouth | | 0 | 09/1 | | Activ | | (ZOCOR) 40 mg tablet | Daily. | | | 3/20 | | e | | | | | | 12 | | | + + + +---------+------+------+-------+ | albuterol | 2 puffs four times | | 0 | 09/1 | | Activ | | (VENTOLIN HFA) 90 | daily as needed. | | | 3/20 | | e | | mcg/puff inhaler | | | | 12 | | | + + + +---------+------+------+-------+ | triamcinolone | 4 puffs twice daily. | | 0 | 09/1 | | Activ | | acetonide (KENALOG) | | | | 3/20 | | e | | 10 MG/ML injection | | | | 12 | | | + + + +---------+------+------+-------+ | PARoxetine (PAXIL) | Take 20 mg by mouth | | 0 | 09/1 | | Activ | | 20 mg tablet | Daily. | | | 3/20 | | e | | | | | | 12 | | | + + + +---------+------+------+-------+ | furosemide (LASIX) | Take 20 mg by mouth | | 0 | 09/1 | | Activ | | 20 mg tablet | Daily. | | | 3/20 | | e | | | | | | 12 | | | + + + +---------+------+------+-------+ | loratadine | Take 10 mg by mouth | | 0 | 09/1 | | Activ | | (CLARITIN) 10 mg | Daily as needed. | | | 08/03 | | e | | tablet | | | | 12 | | | + + + +---------+------+------+-------+ | metoprolol | Take 25 mg by mouth | | 0 | 01/15 | | Activ | | succinate | Daily. | | | 08/03 | | e | | (TOPROL-XL) 25 mg 24 | | | | 12 | | | | hr tablet | | | | | | | + + + +---------+------+------+-------+ | allopurinol | Take 100 mg by mouth | | 0 | | | Activ | | (ZYLOPRIM) 100 mg | daily. | | | | | e | | tablet | | | | | | | + + + +---------+------+------+-------+ | aspirin 81 MG | Take 81 mg by mouth | | 0 | | | Activ | | tablet | daily. | | | | | e | + + + +---------+------+------+-------+ | Calcium | Take 1 tablet by | | 0 | | | Activ | | Carb-Cholecalciferol | mouth 2 (two) times | | | | | e | | (CALCIUM-VITAMIN D) | daily. | | | | | | | 600-400 MG-UNIT | | | | | | | | TABS | | | | | | | + + + +---------+------+------+-------+ | cholecalciferol | Take 1,000 Units by | | 0 | | | Activ | | (CHOLECALCIFEROL) | mouth daily. | | | | | e | | 1000 units TABS | | | | | | | + + + +---------+------+------+-------+ | cyanocobalamin | Take 1,000 mcg by | | 0 | | | Activ | | (VITAMIN B-12) 1000 | mouth daily. | | | | | e | | MCG tablet | | | | | | | + + + +---------+------+------+-------+ | escitalopram | Take 20 mg by mouth | | 0 | | | Activ | | (LEXAPRO) 20 mg | daily. | | | | | e | | tablet | | | | | | | + + + +---------+------+------+-------+ | isosorbide | Take 1 tablet by | | 0 | 02/2 | | Activ | | mononitrate (IMDUR) | mouth daily. | | | 11/03 | | e | | 30 mg ER tablet | | | | 19 | | | + + + +---------+------+------+-------+ | potassium chloride | Take 20 mEq by mouth | | 0 | | | Activ | | (KLOR-CON) 20 MEQ | daily. | | | | | e | | packet | | | | | | | + + + +---------+------+------+-------+ | metFORMIN | Take 500 mg by mouth | | 0 | | | Activ | | (GLUCOPHAGE) 500 mg | 2 times daily (with | | | | | e | | tablet | breakfast & | | | | | | | | dinner). | | | | | | + + + +---------+------+------+-------+ | atorvaSTATin | Take 40 mg by mouth. | | 0 | 08/3 | | Activ | | (LIPITOR) 40 mg | | | | 1/20 | | e | | tablet | | | | 18 | | | + + + +---------+------+------+-------+ | clopidogrel | Take 75 mg by mouth. | | 0 | 08/3 | | Activ | | (PLAVIX) 75 mg | | | | 1/20 | | e | | tablet | | | | 18 | | | + + + +---------+------+------+-------+ | gabapentin | Take 300 mg by mouth | | 0 | | | Activ | | (NEURONTIN) 300 mg | 2 times daily. | | | | | e | | capsule | | | | | | | + + + +---------+------+------+-------+ | lisinopril | Take 10 mg by mouth | | 0 | | | Activ | | (PRINIVIL, ZESTRIL) | Daily. | | | | | e | | 10 mg tablet | | | | | | | + + + +---------+------+------+-------+ | magnesium oxide | Take 400 mg by mouth | | 0 | | | Activ | | (MAG-OX) 400 mg | Daily. | | | | | e | | tablet | | | | | | | + + + +---------+------+------+-------+ | acetaminophen | Take or use as | | 0 | 01/15 | 12/15 | Disco | | (TYLENOL) 325 mg | needed. | | | 08/03 | 02/03 | ntinu | | tablet | | | | 12 | 20 | ed | | | | | | | | (Ther | | | | | | | | apy | | | | | | | | compl | | | | | | | | eted) | + + + +---------+------+------+-------+ Active Problems + + + | Problem | Noted Date | + + + | Coronary artery disease involving blackfeet coronary artery | 12/13/2018 | + + + + + | Overview: multi-vessel | + + + + + | Chronic obstructive pulmonary disease | 07/18/2018 | + + + | Morbid obesity | 12/26/2017 | + + + | Tobacco use disorder | 12/26/2017 | + + + | History of non-ST elevation myocardial infarction (NSTEMI) | 12/26/2017 | + + + | Cardiac defibrillator in situ | 08/15/2003 | + + + + + | Overview: intial AICD 2004, generator change 03/27/11, [place] | | Scientific Telogen E110, s# [id number]; RV Lead - Guidant 0184, s# | | [id number] (08/15/03); RA Lead - Guidant Fineline II EZ Sterox 4469, | | s# [id number] (08/15/03) | + + + + + | Ventricular tachycardia, paroxysmal | 05/17/2003 | + + + + + | Overview: with Syncope, + EPS for inducible VT - 08/14/03 | + + + + + | 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 | + + + | Ischemic dilated cardiomyopathy | | + + + + + | Overview: EF was 27% on echo 08/01/03, improved to 50-55% on | | echo 02/18/15 | + + + +---+ | PULMONARY EMBOLISM | | + +---+ | HYPERTENSION | | + +---+ | HYPERCHOLESTEROLEMIA | | + +---+ | MYOCARDIAL INFARCTION, HX OF | | + +---+ | CORONARY ARTERY BYPASS GRAFT, FOUR VESSEL, HX OF | | + +---+ | COPD | | + +---+ | BRONCHITIS, CHRONIC | | + +---+ | ANGINA, STABLE | | + +---+ Encounters +--------+ + + + + | Date | Type | Specialty | Care Team | Description | +--------+ + + + + | 01/14/ | Documentati | Cardiology | Barak Caba | | | 2020 | on | | MD [place] | | +--------+ + + + + | 01/02/ | Office | Cardiology | Barak Caba | Ischemic | | 2020 | Visit | | MD [place] | cardiomyopathy | | | | | | (Primary Dx); | | | | | | Inducible | | | | | | ventricular | | | | | | tachycardia (HCC); | | | | | | Status post internal | | | | | | cardiac | | | | | | defibrillator | | | | | | procedure | +--------+ + + + + | 01/02/ | Procedure | Cardiology | | Cardiac | | 2019 | visit | | | defibrillator in | | | | | | situ (Primary Dx) | +--------+ + + + + | 12/12/ | Telephone | Cardiology | Barak Caba | Appointment | | 2019 | | | MD [place] | | +--------+ + + + + from Last 3 Months Immunizations + + + + | Name | Administration Dates | Next Due | + + + + | INFLUENZA 63 Y OR >, | 02/16/2019 | | | TRIVALENT HIGH-DOSE | | | + + + + | INFLUENZA PF 63 Y OR | 02/02/2018 | | | >,TRIVALENT (FLUAD) | | | + + + + | INFLUENZA PF | 04/16/2017, 03/25/2016 | | | QUAD(PED/ADOL/ADULT) | | | | ,PSKT or VIAL | | | + + + + | INFLUENZA PF | 02/20/2015 | | | TRIVALENT(PED/ADOL/A | | | | DULT), PSKT | | | + + + + | INFLUENZA QUADR | 02/12/2014 | | | W/PRES | | | | (PED/ADOL/ADULT) | | | | MULTIDOSE | | | + + + + | INFLUENZA TRIV | 02/22/2013, 01/20/2012, 02/05/2011 | | | W/PRES(PED/ADOL/BRAXTON | | | | T),MULTIDOSE | | | + + + + | INFLUENZA, | 02/25/2009, 02/16/2008, 02/25/2007, | | | UNSPECIFIED | 02/25/2004, 03/13/2002, 04/06/2001, | | | FORMULATION | 03/06/1999, 03/08/1998, 03/29/1997, | | | | 03/06/1992, 02/24/1991 | | + + + + | PNEUMOCOCCAL | 11/27/2015 | | | CONJUGATE 13-VALENT | | | | (PCV13) | | | + + + + | PNEUMOCOCCAL | 02/25/2007, 03/08/1998, 02/24/1991 | | | POLYSACCHARIDE | | | | 23-VALENT (PPSV23) | | | + + + + | TD PF (2 LF TETANUS) | 10/12/2002, 03/06/1992, 12/13/1981 | | | (ADOL/ADULT) | | | + + + + | TDAP, (ADOL/ADULT) | 01/20/2012 | | + + + + | ZOSTER NON-LIVE | 05/12/2019, 02/22/2019 | | | (SHINGRIX) | | | + + + + | ZOSTER, 1 DOSE | 01/20/2012 | | | (ZOSTAVAX) | | | + + + + Family History + + +------+ + | Medical History | Relation | Name | Comments | + + +------+ + | Alzheimer's disease | Brother | | | + + +------+ + | Other (see comment) | Brother | | Diabetes Mellitus II | + + +------+ + | Thyroid disease | Daughter | | | + + +------+ + | Coronary artery | Mother | | [place] | | disease | | | | + + +------+ + + +--------+ + + | Relation | Name | Status | Comments | + +--------+ + + | Brother | | | Alzheimer's | | | | (Age | | | | | 87) | | + +--------+ + + | Brother | | | accident | | | | (Age | | | | | 20) | | + +--------+ + + | Brother | | | | + +--------+ + + | Brother | | | | + +--------+ + + | Daughter | | Alive | | + +--------+ + + | Daughter | | | | + +--------+ + + | Father | | | MVA | | | | (Age | | | | | 84) | | + +--------+ + + | Mother | | | | | | | (Age | | | | | 64) | | + +--------+ + + | Sister | | Alive | | + +--------+ + + | Sister | Sahra | | in infancy | + +--------+ + + | Sister | | | | + +--------+ + + | Son | | Alive | | + +--------+ + + Social History + +-------+ +--------+------+ [...] on file | | + + + Last Filed Vital Signs + + + + + | Vital Sign | Reading | Time Taken | Comments | + + + + + | Blood Pressure | 149/83 | 01/03/2020 3:35 PM | | | | | PDT | | + + + + + | Pulse | 94 | 01/03/2020 3:35 PM | | | | | PDT | | + + + + + | Temperature | 37.1 C (98.8 F) | 06/29/2019 1:22 PM | | | | | PST | | + + + + + | Respiratory Rate | 20 | 06/12/2019 1:39 PM | | | | | PST | | + + + + + | Oxygen Saturation | 95% | 01/03/2020 3:35 PM | | | | | PDT | | + + + + + | Inhaled Oxygen | - | - | | | Concentration | | | | + + + + + | Weight | 92.2 kg (203 lb 4.8 | 01/03/2020 3:35 PM | | | | oz) | PDT | | + + + + + | Height | 160 cm (5' 3") | 01/03/2020 3:35 PM | | | | | PDT | | + + + + + | Body Mass Index | 36.01 | 01/03/2020 3:35 PM | | | | | PDT | | + + + + + Plan of Treatment +--------+ + + + [...] [facility] | | | | | | [place] [address] | | | | | | [phone] | | | | | | | | +--------+ + + + + | 07/22/ | Procedure | Cardiology | | | | 2020 | visit | | | | +--------+ + + + + + + + + + | Health Maintenance | Due Date | Last | Comments | | | | Done | | + + + + + | Med Mgmt: Uric Acid | | | | | | 9 | | | + + + + + | Med Mgmt: Vit D | | | | | | 9 | | | + + + + + | Medication | | | | | Management | 9 | | | + + + + + | Med Mgmt: INR | | 12/27/19 | | | | 8 | 18 | | + + + + + | Med Mgmt: HBA1C | | 12/28/19 | | | | 9 | 18 | | + + + + + | Adult Annual | | | | | Wellness Visit | 9 | | | + + + + + | Med Mgmt: Cr | | 01/01/20 | | | | 9 | 18, | | | | | 12/31/19 | | | | | 18, | | | | | 12/30/19 | | | | | 18, | | | | | Addition | | | | | al | | | | | history | | | | | exists | | + + + + + | Med Mgmt: K | | 01/01/20 | | | | 9 | 18, | | | | | 12/31/19 | | | | | 18, | | | | | 12/30/19 | | | | | 18, | | | | | Addition | | | | | al | | | | | history | | | | | exists | | + + + + + | Med Mgmt: Na | | 01/01/20 | | | | 9 | 18, | | | | | 12/31/19 | | | | | 18, | | | | | 12/30/19 | | | | | 18, | | | | | Addition | | | | | al | | | | | history | | | | | exists | | + + + + + | Med Mgmt: eGFR | | 01/01/20 | | | | 9 | 18, | | | | | 12/31/19 | | | | | 18, | | | | | 12/30/19 | | | | | 18, | | | | | Addition | | | | | al | | | | | history | | | | | exists | | + + + + + | Vaccine: Influenza | | 02/17/20 | | | (#1) | 0 | 19, | | | | | 02/03/20 | | | | | 18, | | | | | 04/16/20 | | | | | 17, | | | | | Addition | | | | | al | | | | | history | | | | | exists | | + + + + + | Vaccine: | | 01/20/20 | | | Dtap/Tdap/Td (2 - | 2 | 12, | | | Td) | | 10/13/19 | | | | | 03, | | | | | 03/06/19 | | | | | 92, | | | | | Addition | | | | | al | | | | | history | | | | | exists | | + + + + + | Vaccine: | Completed | 11/27/19 | | | Pneumococcal 65+ | | 16, | | | | | 02/26/20 | | | | | 07, | | | | | 03/08/19 | | | | | 98, | | | | | Addition | | | | | al | | | | | history | | | | | exists | | + + + + + | Vaccine: Zoster | Completed | 05/12/20 | | | | | , | | | | | 02/23/20 | | | | | 19, | | | | | 01/20/20 | | | | | 12 | | + + + + + Implants + +-------+------+ +--------+--------+--------+ | Implanted | Type | Area | Manufacture | Device | Shelf | Model | | | | | r | | Expira | / | | | | | | Identi | tion | Serial | | | | | | fier | Date | / Lot | + +-------+------+ +--------+--------+--------+ | Implant Id: [id number] - Synergy | Stent | | [place] | | 08/30/ | [id number] | | 3.5 X 16-12/27/2017Implanted: | | | SCIENTIFIC | | 2019 | [id number] | | 12/27/2017 by Aquiles Morris, | | | LARRY - BSCI | | | 50 / | | MD (Quantity not on file) | | | | | | /[id number] | | | | | | | | 257 | + +-------+------+ +--------+--------+--------+ | Implant Id: [id number] - Synergy | Stent | | [place] | | 08/30/ | [id number] | | 3.5 X 16-12/27/2017Implanted: | | | SCIENTIFIC | | 2019 | [id number] | | 12/27/2017 by Aquiles Morris, | | | LARRY - BSCI | | | 50 / | | MD (Quantity not on file) | | | | | | /[id number] | | | | | | | | 257 | + +-------+------+ +--------+--------+--------+ Procedures + +--------+ + + + | Procedure Name | Priori | Date/Time | Associated Diagnosis | Comments | | | ty | | | | + +--------+ + + + | ECHO COMPLETE | Routin | 01/11/2020 | Ischemic | Results for this | | | e | 12:23 PM | cardiomyopathy | procedure are in the | | | | PDT | | results section. | + +--------+ + + + | ECG 12 LEAD | Routin | 01/03/2020 | Ischemic | Results for this | | | e | 3:33 PM | cardiomyopathy | procedure are in the | | | | PDT | | results section. | + +--------+ + + + | DEVICE INTERROGATION | Routin | 01/03/2020 | Cardiac | Results for this | | | e | 12:00 AM | defibrillator in | procedure are in the | | | | PDT | situ | results section. | + +--------+ + + + from Last 3 Months Results ECHO Complete (01/11/2020 12:23 PM PDT) + + + | Narrative | Performed At | + + + | ECHO DONE AT | | | [facility] | | + + + ECG 12 lead (01/03/2020 3:33 PM PDT) + + + + + + | Component | Value | Ref Range | Performed | Pathologist | | | | | At | Signature | + + + + + + | VENTRICULAR | 93 | BPM | [facility] | | | RATE EKG | | | | | + + + + + + | ATRIAL RATE | 93 | BPM | [facility] | | + + + + + + | P-R | 146 | ms | [facility] | | | INTERVAL | | | | | + + + + + + | QRS | 116 | ms | [facility] | | | DURATION | | | | | + + + + + + | Q-T | 400 | ms | [facility] | | | INTERVAL | | | | | + + + + + + | Q-T | 497 | ms | [facility] | | | INTERVAL | | | | | | (CORRECTED) | | | | | + + + + + + | P WAVE AXIS | 49 | degrees | [facility] | | + + + + + + | QRS AXIS | 46 | degrees | [facility] | | + + + + + + | T AXIS | 95 | degrees | [facility] | | + + + + + + | INTERPRETAT | Please refer to | | [facility] | | | ION TEXT | Providers office visit | | | | | | note for Providers | | | | | | Interpretation.Confirmed | | | | | | by BARAK CABA MD | | | | | | ([id number]) on 01/08/2020 | | | | | | 3:03:33 PM | | | | + + + + + + + + | Specimen | + + | | + + + + + | Narrative | Performed At | + + + | | | + + + + +---------+ + + | Performing | Address | City/State/Zipcode | Phone Number | | Organization | | | | + +---------+ + + | [facility] | | | | + +---------+ + + Device Interrogation (01/03/2020 12:00 AM PDT) + + + | Narrative | Performed At | + + + | Jami Blair | [facility] | | ONUR Barron 01/03/2020 4:03 PMDevice information was obtained | | | from provider's office note on 01/03/2020: Device Interrogation: Her | | | dual-chamber [employer] ICD was interrogated and found to have | | | stable sensing, pacing, and impedance values. She has a history of | | | no capture from the atrial lead and the device remains programmed in a | | | DDD mode. Brief atrial runs have been noted but no atrial | | | fibrillation has been noted or any significant ventricular episodes | | | since last interrogation. She paces less than 1% of the time in the | | | ventricle. Device interrogation done by Erin Caba Any events or | | | changes listed in office note. See device data attached to scheduled | | | encounter for additional details. cuff folder: [facility] | | | | | |Device interrogation done by Erin Caba | | | | | |Any events or changes listed in office note. | | | | | |See device data attached to scheduled encounter for additional | | |details. | | | | | |cuff folder: [facility] | | + + + + + | Procedure Note | + + | Jami Barron RN - 01/03/2020 3:30 PM PDT Device information was obtained from | | provider's office note on 01/03/2020:Device Interrogation: Her dual-chamber [place] | | [employer] ICD was interrogated and found to have stable sensing, pacing, and impedance | | values. She has a history of no capture from the atrial lead and the device remains | | programmed in a DDD mode. Brief atrial runs have been noted but no atrial fibrillation | | has been noted or any significant ventricular episodes since last interrogation. She | | paces less than 1% of the time in the ventricle.Device interrogation done by Erin | | Irena events or changes listed in office note.See device data attached to | | scheduled encounter for additional details. cuff folder: [facility] | |See device data attached to scheduled encounter for additional details. | | | |DILAN De Oliveira: ON[facility] Farrell | + + + +---------+ + + | Performing | Address | City/State/Zipcode | Phone Number | | Organization | | | | + +---------+ + + | [facility] | | | | + +---------+ + + from Last 3 Months Insurance + +--------+ +--------+ +---------+--------+ | Payer | Benefi | Subscriber | Effect | Phone | Address | Type | | | t Plan | ID | zena | | | | | | / | | Dates | | | | | | Group | | | | | | + +--------+ +--------+ +---------+--------+ | MEDICARE | MEDICA | [id number] | 11/15/19 | [phone] | | Medica | | | RE | | 04-Pre | 5 | | re | | | PART A | | sent | | | | | | AND B | | | | | | + +--------+ +--------+ +---------+--------+ | MEDICARE | MEDICA | [id number] | 11/15/19 | [phone] | | Medica | | | RE | | 04-Pre | 5 | | re | | | PART A | | sent | | | | | | AND B | | | | | | + +--------+ +--------+ +---------+--------+ | [facility] | [employer] | [id number] | 05/17/19 | | | Indemn | | SERVICE | YELLOW | | 04-Pre | | | ity | | | HAWK | | sent | | | | + +--------+ +--------+ +---------+--------+ | [facility] | [employer] | [id number] | 05/18/19 | | | Indemn | | SERVICE | YELLOW | | 13-Pre | | | ity | | | HAWK | | sent | | | | + +--------+ +--------+ +---------+--------+ | MEDICAID [place] | MEDICA | [id number] | | [phone] | | Medica | | | [place] | | 019-Pr | 2 | | id | | | PLUS | | esent | | | | + +--------+ +--------+ +---------+--------+ | MEDICAID [place] | MEDICA | [id number] | 05/22/19 | [phone] | | Medica | | | [place] | | 20-Pre | 2 | | id | | | PLUS | | sent | | | | + +--------+ +--------+ +---------+--------+ + +--------+ +--------+ + + | Guarantor Name | Accoun | Relation to | Date | Phone | Billing Address | | | t Type | Patient | of | | | | | | | | | | + +--------+ +--------+ + + | Yuliana Galindo | Person | Self | [birth year] | [address] | | | al/Fam | | 1941 | [phone] | [place], [place] | | | [place] | | | [address] (Home) | [address] | + +--------+ +--------+ + + | Yuliana Galindo | Person | Self | [birth year] | | [address] | | | al/Fam | | 1941 | [phone] | [place], [place] | | | [place] | | | [address] (Home) | [address] | + +--------+ +--------+ + + | Yuliana Galindo | Person | Self | [birth year] | [address] | | | al/Fam | | 1941 | [phone] | [place], [place] | | | [place] | | | [address] (Home) | [address] | + +--------+ +--------+ + + Advance Directives + + + + + | Type | Date Recorded | Patient | 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
--- OUTSIDE RECORDS SUMMARY | ~2020-01-22 | XMS | Encounter Summary ---
Demographics + + + | Address | [address] | | | [place] [address] | + + + | Home Phone | | + + + | Preferred Language | Unknown | + + + | Marital Status | | + + + | Christianity Affiliation | 1041 | + + + | Race | or | + + + | Ethnic Group | Not or | + + + Author + + + | Author | [facility] | | | and [place] | + + + | Organization | [facility] | | | and [place] | + + + | Address | Unknown | + + + | Phone | Unavailable | + + + Support + + +---------+ + | Name | Relationship | Address | Phone | + + +---------+ + | Kamila Manuel | ECON | Unknown | | + + +---------+ + | Martha Monteengro | ECON | Unknown | | + + +---------+ + Care Team Providers + +------+ + | Care Boom Boss Name | Role | Phone | + +------+ + | Pcp, Prov Inactive | PCP | | + +------+ + Encounter Details +--------+ + + + + | Date | Type | Department | Care Team | Description | +--------+ + + + + | 12/26/ | Hospital | [facility] | [facility] | Pain; S/P drug | | 2018 - | Encounter | [facility] | MD Timur [address] | eluting coronary | | | | CARE FLOOR [address] [place], [place] | stent placement; | | 12/31/ | | [address] | [phone] | NSTEMI (non-ST | | 2017 | | [place], [place] | | elevated myocardial | | | | [address] | | infarction) ([facility]) | | | | [phone] | | | +--------+ + + + + Social History + +-------+ +--------+------+ | Tobacco Use | Types | Packs/Day | Years | Date | | | | | Used | | + +-------+ +--------+------+ | Never Assessed | | | | | + +-------+ +--------+------+ + + + | Sex Assigned at | Date Recorded | | | | + + + | Not on file | | + + + documented as of this encounter Last Filed Vital Signs + + + + + | Vital Sign | Reading | Time Taken | Comments | + + + + + | Blood Pressure | 98/54 | 12/31/2017 4:49 PM | | | | | PDT | | + + + + + | Pulse | 76 | 12/31/2017 4:49 PM | | | | | PDT | | + + + + + | Temperature | 37.3 C (99.2 F) | 12/31/2017 4:49 PM | | | | | PDT | | + + + + + | Respiratory Rate | 18 | 12/31/2017 4:49 PM | | | | | PDT | | + + + + + | Oxygen Saturation | - | - | | + + + + + | Inhaled Oxygen | - | - | | | Concentration | | | | + + + + + | Weight | 101.2 kg (223 lb 1.8 | 12/31/2017 4:49 PM | | | | oz) | PDT | | + + + + + | Height | 172.7 cm (5' 8") | 12/31/2017 4:49 PM | | | | | PDT | | + + + + + | Body Mass Index | 33.92 | 12/31/2017 4:49 PM | | | | | PDT | | + + + + + documented in this encounter Discharge Summaries Francesco Edmonds MD - 12/31/2017 9:12 AM PDTFormatting of this note might be different fro m the original. Discharge Summaries by Francesco Edmonds MD at 12/31/17911 Author: Francesco Edmonds MD Service: Hospitalist Author Type: Physician Filed: 12/31/17 1609 Date of Service: 12/31/17911 Status: Signed Siphoner: Francesco Edmonds MD (Physician) Patient: Yuliana Humphreys : 1940 Date of Admission: 12/26/2017 Date of Discharge: 12/31/2017 Treatment Team: Consulting Physician: Yvette Morris MD Admitting Provider: Pasha Buck MD Discharging Provider: Francesco Edmonds MD Discharge Diagnoses: Principal Problem: NSTEMI (non-ST elevated myocardial infarction) (HCC) Active Problems: S/P CABG x 4 Ischemic dilated cardiomyopathy (HCC) Cardiac defibrillator in situ Hypertension Morbid obesity (HCC) Tobacco use disorder Acute metabolic encephalopathy Acute respiratory failure with hypoxia and hypercapnia (HCC) Pulmonary edema cardiac cause (HCC) Resolved Problems: * No resolved hospital problems. * Procedures Performed: Chief Complaint: No chief complaint on file. Hospital Course: Yuliana Humphreys is a 77 y.o. female with hx of CAD, CABG, ischemic cardiomyopathy, HTN, vt ach s/p AICD, HTN who was admitted on 12/26/2017 with chest pain when seh was walking. She wa s transferred to [facility] due to possible NSTEMI. She underwent angiogram on 12/27 and 2 stents were placed in the vein graft to OM3. Subsequently she was encephalopathic with tachypnea a nd wheezing and was transferred to ICU. She required bipap and diuresis. Subsequently she im proved and was transferred to the floor. She did continue to improve, however she did have a cough and has a strong smoking history. She was started on neubulizers and PO steroids with some improvement. She was also given iv lasix and then transitioned over to PO lasix. She did qualify for home oxygen. She improved and was stable for discharge. Discharge Exam and Data: Vital Signs: BP 115/57 (BP Location: Right upper arm) | Pulse 69 | Temp 98.9 F (37.2 C) (Oral) | Resp 18 | Ht 1.727 m (5' 8") | Wt 101.2 kg (223 lb 1.7 oz) | SpO2 92% | ? N o | BMI 33.92 kg/m I&O Last 3 Shifts: 12/29 1900 - 12/31 0659 In: 1805 [P.O.:1805] Out: 4750 [Urine:4750] Physical Examination: Constitutional: Alert and oriented to person, place, and time. Appears well-developed and w ell-nourished. HEENT: Neck supple, no JVD, non icteric sclera. Cardiovascular: Normal rate, regular rhythm, normal heart sounds with S1 and S2. Exam reve als no appreciated gallop or friction rub. No murmur heard. Pulmonary/Chest: Decreased breath sounds b/l. No stridor. No respiratory distress. Mild ex p wheezes. She is on oxygen. + cough Abdominal: Soft. Bowel sounds are normal. exhibits no distension and no mass. There is no t enderness. There is no rebound and no guarding. Extremeties/Musculoskeletal: Normal range of motion.exhibits no tenderness. exhibits trace edema. Neurological: . No cranial nerve deficit. Exhibits normal muscle tone. Coordination nor mal. Skin: Skin is warm and dry. No rash noted. No erythema. No pallor. Psychiatric: Has a normal mood and affect given situation. Recent Labs Recent Labs Lab 12/31/17 0437 12/30/17 0440 12/29/17 0513 WBC 11.37* 11.08* 10.56 HGB 12.7 12.3 12.4 HCT 38.4 35.6 36.1 PLT 162 157 157 Recent Labs Lab 12/31/17 0437 12/30/17 0440 12/29/17 0513 NA 143 141 140 K 4.0 4.0 4.1 CL 105 101 101 CO2 31 31 33* BUN 24 24 26* CREATININE 0.97 1.0 0.99 Recent Labs Lab 12/26/17 1645 INR 1.0 Results No results found for the last 72 hours. Recent Radiology Results X-ray Chest 1 View Result Date: 12/27/2017 Cardiomegaly. Bilateral pulmonary vascular congestion and pulmonary edema. Electronically s igned by Claude Owen MD on 12/27/2017 11:28 AM X-ray Chest 1 View Result Date: 12/26/2017 1. Median sternotomy with prominent cardiac enlargement and sequential pacer. 2. Suspecte d CHF with interstitial edema, perhaps with subtle left effusion. Echo Cardiac Adult With Contrast Result Date: 12/27/2017 1. This was a technically difficult study with suboptimal views. Patient supine. 2. Overall left ventricular systolic function is mild-moderately impaired with, an EF between 40 - 45 %. 3. The diastolic filling pattern indicates impaired relaxation consistent with mild dysfu nction (Grade I). 4. The RV was not well visualized in apical views, but appears to have nor mal systolic function on limited subcostal and parasternal views. 5. There is moderate to se federico pulmonary hypertension. The right ventricular systolic pressure (pulmonary artery syst olic pressure), as measured by Doppler, is 58 - 63 mm Hg. 6. No significant valvular abnorma lities are noted. 7. There are several clinically significant changes noted in comparison to the previous echocardiographic study, done 02/26/15, as detailed below. Outstanding Issues: She is to follow with cardiology. She needs PFT to be done by pcp and should see a pulmonol ogist. Discharge Information: Follow up: Tres Beltran MD [address] [place] [place] [address] Schedule an appointment as soon as possible for a visit in 10 days hospital follow up. NSTEMI Roxana Barajas PA-C [address] [place] [address] Schedule an appointment as soon as possible for a visit in 1 week hospital follow up, may need pulmonology referral and PFT Medication List START taking these medications albuterol 108 (90 Base) MCG/ACT inhaler QTY: 1 Inhaler Refills: 0 Commonly known as: PROVENTIL HFA;VENTOLIN HFA Inhale 2 puffs into the lungs every 2 (two) hours as needed for Wheezing or Shortness of Br eath. atorvastatin 40 MG tablet QTY: 30 tablet Refills: 0 Commonly known as: LIPITOR Take 1 tablet by mouth nightly. predniSONE 10 MG tablet QTY: 30 tablet Refills: 0 Commonly known as: DELTASONE Take 4 pills a day for 3 days, then 3 pills a day for 3 days, then 2 pills a day for 3 days , then 1 pill a day for 3 days and stop. CHANGE how you take these medications isosorbide dinitrate 30 MG tablet QTY: 60 tablet Refills: 0 Commonly known as: ISORDIL Take 2 tablets by mouth daily. What changed: how much to take CONTINUE taking these medications acetaminophen 325 MG tablet Refills: 0 Commonly known as: TYLENOL allopurinol 100 MG tablet Refills: 0 Commonly known as: ZYLOPRIM aspirin 81 MG tablet Refills: 0 buPROPion 100 MG tablet Refills: 0 Commonly known as: WELLBUTRIN Calcium/Vitamin D 600-400 MG-UNIT Tabs Refills: 0 cholecalciferol 1000 units tablet Refills: 0 Commonly known as: VITAMIN D-3 clopidogrel 75 MG tablet QTY: 30 tablet Refills: 1 Commonly known as: PLAVIX Take 1 tablet by mouth daily. cyanocobalamin 100 MCG tablet Refills: 0 Commonly known as: VITAMIN B-12 escitalopram 20 MG tablet Refills: 0 Commonly known as: LEXAPRO furosemide 20 MG tablet Refills: 0 Commonly known as: LASIX lisinopril 5 MG tablet QTY: 60 tablet Refills: 0 Commonly known as: ZESTRIL Take 1 tablet by mouth daily. metoprolol 25 MG 24 hr tablet Refills: 0 Commonly known as: TOPROL-XL nicotine 7 MG/24HR Refills: 0 Commonly known as: NICODERM CQ potassium chloride 20 MEQ packet Refills: 0 Commonly known as: KLOR-CON You might also be taking other medications not listed above. If you have questions about an y of your other medications, talk to the person who prescribed them or your Primary Care Pro vider. Where to Get Your Medications You can get these medications from any pharmacy Bring a paper prescription for each of these medications albuterol 108 (90 Base) MCG/ACT inhaler atorvastatin 40 MG tablet clopidogrel 75 MG tablet isosorbide dinitrate 30 MG tablet lisinopril 5 MG tablet predniSONE 10 MG tablet Disposition: Home Condition: Stable Code Status: Full Code Discharge took 54 minutes, to include final examination, discussion of admission, and prepa ration of prescriptions, instructions for on-going care, follow-up and documentation of disc harge summary. Francesco Edmonds MD 9:12 AM documented in this e ncounter Medications at Time of Discharge + + + +---------+ + + | Medication | Sig | Dispensed | Refills | Start | End Date | | | | | | Date | | + + + +---------+ + + | albuterol | 2 puffs four times | | 0 | 01/28/20 | | | (VENTOLIN HFA) 90 | daily as needed. | | | 12 | | | mcg/puff inhaler | | | | | | + + + +---------+ + + | furosemide (LASIX) | Take 20 mg by mouth | | 0 | 01/28/20 | | | 20 mg tablet | Daily. | | | 12 | | + + + +---------+ + + | ipratropium | Take or use as | | 0 | 01/28/20 | | | (ATROVENT HFA) 17 | needed. | | | 12 | | | mcg/puff inhaler | | | | | | + + + +---------+ + + | KCl in | Take 1 tablet by | | 0 | 01/28/20 | | | Dextrose-NaCl | mouth daily | | | 12 | | | 10-5-0.2 MEQ/L-%-% | | | | | | | SOLN | | | | | | + + + +---------+ + + | loratadine | Take 10 mg by mouth | | 0 | 01/28/20 | | | (CLARITIN) 10 mg | Daily as needed. | | | 12 | | | tablet | | | | | | + + + +---------+ + + | metoprolol | Take 25 mg by mouth | | 0 | 01/28/20 | | | succinate | Daily. | | | 12 | | | (TOPROL-XL) 25 mg 24 | | | | | | | hr tablet | | | | | | + + + +---------+ + + | PARoxetine (PAXIL) | Take 20 mg by mouth | | 0 | 01/28/20 | | | 20 mg tablet | Daily. | | | 12 | | + + + +---------+ + + | quiNINE | Take 324 mg by mouth | | 0 | 01/28/20 | | | (QUALAQUIN) 324 mg | nightly. | | | 12 | | | capsule | | | | | | + + + +---------+ + + | simvastatin | Take 40 mg by mouth | | 0 | 01/28/20 | | | (ZOCOR) 40 mg tablet | Daily. | | | 12 | | + + + +---------+ + + | triamcinolone | 4 puffs twice daily. | | 0 | 01/28/20 | | | acetonide (KENALOG) | | | | 12 | | | 10 MG/ML injection | | | | | | + + + +---------+ + + | warfarin | 3 mg four days a | | 0 | 01/28/20 | | | (COUMADIN) 3 MG | week, 4.5 mg three | | | 12 | | | tablet | days a week. | | | | | + + + +---------+ + + | acetaminophen | Take or use as | | 0 | 01/28/20 | | | (TYLENOL) 325 mg | needed. | | | 12 | 0 | | tablet | | | | | | + + + +---------+ + + | albuterol 90 | Inhale 2 puffs into | | 0 | 01/01/20 | | | mcg/puff inhaler | the lungs every 2 | | | 18 | 9 | | | (two) hours as | | | | | | | needed for Wheezing | | | | | | | or Shortness of | | | | | | | Breath. | | | | | + + + +---------+ + + | calcium-vitamin D | Take by mouth 2 | | 0 | 01/28/20 | | | (CALCIUM + D) | times daily. | | | 12 | 0 | | 250-125 MG-UNIT per | | | | | | | tablet | | | | | | + + + +---------+ + + | lisinopril | Take 5 mg by mouth | | 0 | 01/28/20 | | | (PRINIVIL, ZESTRIL) | Daily. | | | 12 | 9 | | 5 mg tablet | | | | | | + + + +---------+ + + documented as of this encounter Progress Notes Conversion Transaction, Provider Unknown - 12/31/2017 5:02 PM PDTFormatting of this note m ight be different from the original. Nurse Progress Note by Pamela Wagner RN at 12/31/171701 Author: Pamela Wagner RN Service: (none) Author Type: Registered Nurse Filed: 12/31/179 Date of Service: 12/31/171701 Status: Signed Siphoner: Pamela Wagner RN (Registered Nurse) Patient and daughter received discharge instructions, and Rx. All questions answered, and a ll belongings sent with patient, belongings check list is complete. All patient VS are stabl e, patient is afebrile and denies SOB, CP or N/V. PIV x 2 removed, home oxygen with patient. Patient wheeled out in wheelchair by [facility] escort to personal vehicle, discharged home wit h daughter. Pamela Wagner RN onver darnell Transaction, Provider Unknown - 12/31/2017 10:14 AM PDT Case Management by Wandy Gong RN at 12/31/17 3173 Author: Wandy Gong RN Service: (none) Author Type: Registered Nurse Filed: 12/31/17 1054 Date of Service: 12/31/17 1014 Status: Addendum Siphoner: Wandy Gong RN (Registered Nurse) Related Notes: Original Note by Wandy Gong RN (Registered Nurse) filed at 12/31/17 101 5 Pt to d/c home today. Pt will return home with caregivers/family. Family to transport Per [facility], they will deliver a portable tank to room today. Per [facility], they will accept pt Wednesday. Faxed AVS Notified Kell with [facility] of d/c plan, no questions Rita onver darnell Transaction, Provider Unknown - 12/31/2017 5:39 AM PDT Nurse Progress Note by Aishwarya Marr RN at 12/31/17 0539 Author: Aishwarya Marr RN Service: (none) Author Type: Registered Nurse Filed: 12/31/17 0541 Date of Service: 12/31/17 05 Status: Signed Siphoner: Aishwarya Marr RN (Registered Nurse) Pt rested comfortably thi shift, denying pain. Pt continues to have cough and require 3L O2 . End of shift chart check completed. onver darnell Transaction, Provider Unknown - 12/30/2017 6:06 PM PDT Nurse Progress Note by Pamela Wagner RN at 12/30/171805 Author: Pamela Wagner RN Service: (none) Author Type: Registered Nurse Filed: 12/30/171807 Date of Service: 12/30/171805 Status: Signed Siphoner: Pamela Wagner RN (Registered Nurse) Patient had uneventful shift. Denies pain. SBP 90s, all other VSS. Heart rhythm SR. Activit y 1PA with movement. Lungs Dim with crackles, persistent cough, on neb treatments, 3L O2. D enies complaints or concerns, all questions answered. Hourly rounding uneventful. End of shift chart check completed, all medications given within required perameters. Pamela Wagner RN onver darnell Transaction, Provider Unknown - 12/30/2017 5:29 PM PDT Therapy Progress Note by Parmjit Hernandez, PT at 12/30/171728 Author: Parmjit Hernandez PT Service: (none) Author Type: Physical Therapist Filed: 12/30/17 0756 Date of Service: 12/30/171728 Status: Signed Siphoner: Parmjit Hernandez PT (Physical Therapist) PHYSICAL THERAPY TREATMENT NOTE PT Received On: 12/30/17 Reason for Treatment: Deconditioning Requires PT Follow Up: PT tech Follow up PT Only?: No Assistance Required: 1 person Airbrush Artist Technical Needed: No Recommendations: Home Assist, PT PT Ready for Discharge: Yes Plan Treatment/Interventions: Amb with mobility aide PT Frequency: 5-7x/wk Care Duration (# of days): 7 # of days Summary Comments: Patient in bed upon PT arrival; agreeable to participation. Patient is eager to d ischarge home, possibly tomorrow. She will require home O2- pt on 3L supplemental O2. She is demonstrating significant improvement in functional strength and overall activity tolerance . no complaints of dizziness throughout. Exertional dyspnea persists but is decreasing geovani red to previous days. Ed on safe 4WW management and importance of frequent mobility. Vitals at rest in sitting: HR 73, BP 116/58, SpO2 92% w/ 3L (NC). She will have her caregiver adriana kevin for approx 4 hours daily, as well as daugther present. She is appropriate to mobilize with PT Tech. Precautions Other Precautions: Fall Risk; Monitor SpO2 Cognition Overall Cognitive Status: Within Functional Limits Orientation Level: Oriented FUNCTIONAL MOBILITY Bed Mobility Rolling: Standby assist Supine to Sit: Standby assist Sit to Supine: Standby assist - Transfers Sit to/from Stand: Standby assist Ambulation Maximal Ambulation Distance (feet): 160 Total Ambulation Distance (feet): 160 ft Ambulation Assistance: Standby assist Distance limited by?: Patient's ability Pattern: Decreased kelly, Right swing foot doesn't pass stance foot, Left swing foot does n't pass stance foot Assistive Device: Walker 4 wheeled (Bariatric ) Activity Tolerance: Patient limited by fatigue Nurse Made Aware: RN Breanne Safety Devices in Place: (Call light; needs met) Restraints Initially in Place: No The patient demonstrated no indication of pain during therapy session. Education Completed: Education Topics: [x] Rationale for PT [x] PT POC [x] DC planning [] Precautions [] Exercises [x] Bed mobility [x] Transfer training with hand placement [x] Gait training [] Stair training [x] Use of gait belt [] Other Completed with: [x] Patient [] Spouse [] Significant other [] Family [] C aregiver [] Other Completed by: [x] Verbal education [x] Demonstration [] Handout [] Other: Response to Education: [x] Stated Understanding [] Reinforcement necessary [x] Returned demonstration [] Demonstrated understanding [] No evidence of learning [] Refused rancesco Ibarra i, MD - 12/30/2017 3:44 PM PDTFormatting of this note might be different from the o riginal. Progress Notes by Francesco Edmonds MD at 12/30/17 154 Author: Francesco Edmonds MD Service: Hospitalist Author Type: Physician Filed: 12/30/17 1547 Date of Service: 12/30/171543 Status: Signed Siphoner: Francesco Edmonds MD (Physician) [facility] Service: Hospitalist Progress Note Pt: Yuliana Humphreys AGE/SEX: 77 y.o. female ROOM: [address] [place] [address] : 1940 PCP: Roxana Barajas ADMIT DATE: 12/26/2017 TODAY'S DATE: 12/30/2017 Hospital Day/Hospital Course: LOS: 4 days Per ICU notes " Patient Summary: From Sandrita Metz's 12/27/17 Consult Note: The patient is a 77 y.o.femalewith significant past medical history ofCAD s/p CABG x3 , ischemic dilated cardiomyopathy (last EF 50-55% 02/28), HTN, paroxysmal vtach s/p AICD ryan cement (2003), HTN, current smoker, who presented to [facility] in [facility] to midsternal chest pain that started when she went for a walk. The pain radiated to her L shoulder and she became nauseous and diaphoretic. The patient had similar episodes when she had her CABG in 1994. EKG was done at [place] which revealed non-specific ST-T changes (no previous EKG to compare). She had borderline troponin elevation and was transferred to [facility] for cardiology services on heparin gtt. The patient was initially admitted to the hospitalist service on the afternoon of 12/26. Car diology was consulted, and patient underwent coronary angiogram with Dr. Morris the morning of 12/27. Two stents were placed in the vein graft to the OM3. During the procedure, the pat ient became progressively encephalopathic with increasing tachypnea and wheezing, so the ICU team was consulted. The patient was started on BiPAP and brought to the ICU. ICU Timeline: 12/27- transferred from mobile lab technician to ICU for decreased LOC following sedation medications wit h wheezing and respiratory distress, was placed on BIPAP and got Solumedrol; she awoke short ly after arrived in ICU" SUBJECTIVE: Patient seen and examined. Her oxygen requirements have decreased. She does feel a little b it better today. Does feel some shortness of breath, but better than yesterday. No chest pa in, + Cough but more loose today. Had no orthopnea or PND. No Abdominal pain, N/V or fever. No dizziness or lightheadedness. Scheduled Medications: aspirin 81 mg Oral Daily with breakfast atorvastatin 40 mg Oral Nightly cholecalciferol 1,000 Units Oral Daily clopidogrel 75 mg Oral Daily enoxaparin 40 mg Subcutaneous Q24H escitalopram 20 mg Oral Daily furosemide 20 mg Intravenous BID-Diuretics insulin lispro (human) 0-3 Units Subcutaneous Nightly insulin lispro (human) 0-6 Units Subcutaneous TID AC ipratropium-albuterol 3 mL Nebulization Q6H isosorbide dinitrate 60 mg Oral Daily lisinopril 5 mg Oral Daily metoprolol 25 mg Oral Daily nicotine 1 patch Transdermal Q24H predniSONE 40 mg Oral Daily with breakfast Continuous Infusions dextrose PRN Medications acetaminophen OR acetaminophen, albuterol, dextrose, dextrose, dextrose, glucagon, gluc agon, morphine OR morphine OR morphine, nitroGLYCERIN, ondansetron OR ondansetro n, perflutren lipid microspheres, polyethylene glycol, sodium chloride 0.9 %, zolpidem Allergy: No Known Allergies OBJECTIVE: Vitals: Patient Vitals for the past 24 hrs: BP Temp Temp src Pulse Resp SpO2 12/30/17 1128 - - - 86 20 93 % 12/30/17 1120 - - - 90 20 93 % 12/30/17 1108 93/54 99.1 F (37.3 C) Oral 78 20 90 % 12/30/17 0836 93/47 - - - - - 12/30/17 0732 98/61 99.2 F (37.3 C) Oral 67 22 92 % 12/30/17 0539 109/52 - - - - - 12/30/17 0512 - - - 66 22 95 % 12/30/17 0505 - - - 69 18 96 % 12/30/17 0308 105/53 99 F (37.2 C) Oral 69 20 92 % 12/29/17 2339 - - - 73 20 90 % 12/29/17 2333 - - - 67 22 90 % 12/29/17 2321 101/46 98.4 F (36.9 C) Oral 73 18 94 % 12/29/17 1907 91/46 98.8 F (37.1 C) Oral 69 20 90 % 12/29/17 1623 - - - 70 18 94 % 12/29/17 1617 - - - 75 18 90 % I&O Detailed Table: Intake/Output Summary (Last 24 hours) at 12/30/17 1544 Last data filed at 12/30/17 0842 Gross per 24 hour Intake 1155 ml Output 1400 ml Net -245 ml Patient Vitals for the past 96 hrs: Weight 12/28/17 0430 100.8 kg (222 lb 3.6 oz) 12/27/17 1115 108.8 kg (239 lb 13.8 oz) 12/26/17 1559 100.2 kg (220 lb 14.4 oz) Physical Examination: Constitutional: Awake, interactive. Resting comfortably. HEENT: Neck supple, no JVD, non icteric sclera. Cardiovascular: Normal rate, regular rhythm. Exam reveals no appreciated gallop or frictio n rub. No murmur heard. Pulmonary/Chest: Effort normal and breath sounds normal. Mild wheezing is present b/l. Abdominal: Soft. Bowel sounds are normal. exhibits no distension and no mass. There is no t enderness. There is no rebound and no guarding. Extremeties/Musculoskeletal: Normal range of motion for patient. exhibits no tenderness. e xhibits trace edema. Neurological: Alert and oriented to person, place, and time. No cranial nerve deficit remedios reciated. Exhibits normal muscle tone. Skin: Skin is warm and dry. No rash noted. No erythema. No pallor. Psychiatric: Has a normal mood and affect given situation. Behavior is normal. LABS: Recent Labs Lab 12/30/1743912/29/17 0512/28/17 0759 WBC 11.08* 10.56 10.84 HGB 12.3 12.4 12.7 HCT 35.6 36.1 38.4 PLT 157 157 149* NEUTOPHILPCT 74.39 76.15 81.66 MONOPCT 8.94 8.46 8.85 Recent Labs Lab 12/30/1743912/29/1751212/28/17 0759 12/27/17 0458 NA 141 140 139 -- 139 K 4.0 4.1 4.2 < > 4.9 CL 101 101 101 -- 104 CO2 31 33* 32 -- 27 BUN 24 26* 27* -- 16 CREATININE 1.0 0.99 1.2* -- 1.1* PROT -- -- -- -- 6.3 BILITOT -- -- -- -- 0.5 ALT -- -- -- -- 43 AST -- -- -- -- 135* < > = values in this interval not displayed. Phosphorus: Lab Results Component Value Date PHOS 2.1 (L) 12/30/2017 Invalid input(s): LABALBU Recent Labs Lab 12/30/17 0440 12/29/17 0513 12/28/17 0723 MG 2.3 2.4 2.5* No results for input(s): AMYLASE in the last 168 hours. Recent Labs Lab 12/27/17 1539 12/27/17 1035 12/27/17 1026 BEART 1 1 1 Recent Labs Lab 12/27/17 0651 12/26/17 2341 12/26/17 1645 APTT 42* 37* 45* INR -- -- 1.0 Recent Labs Lab 12/27/17 0458 TSH 1.050 Recent Labs Lab 12/27/17 0458 12/26/17 2341 12/26/17 1645 TROPONINI 29.9* 20.7* 1.84* Results No results found for the last 72 hours. RADIOLOGY: X-ray Chest 1 View Result Date: 12/27/2017 Cardiomegaly. Bilateral pulmonary vascular congestion and pulmonary edema. Electronically s igned by Claude Owen MD on 12/27/2017 11:28 AM X-ray Chest 1 View Result Date: 12/26/2017 1. Median sternotomy with prominent cardiac enlargement and sequential pacer. 2. Suspecte d CHF with interstitial edema, perhaps with subtle left effusion. Echo Cardiac Adult With Contrast Result Date: 12/27/2017 1. This was a technically difficult study with suboptimal views. Patient supine. 2. Overall left ventricular systolic function is mild-moderately impaired with, an EF between 40 - 45 %. 3. The diastolic filling pattern indicates impaired relaxation consistent with mild dysfu nction (Grade I). 4. The RV was not well visualized in apical views, but appears to have nor mal systolic function on limited subcostal and parasternal views. 5. There is moderate to se federico pulmonary hypertension. The right ventricular systolic pressure (pulmonary artery syst olic pressure), as measured by Doppler, is 58 - 63 mm Hg. 6. No significant valvular abnorma lities are noted. 7. There are several clinically significant changes noted in comparison to the previous echocardiographic study, done 02/26/15, as detailed below. PROBLEM LIST Principal Problem: NSTEMI (non-ST elevated myocardial infarction) ([facility]) Active Problems: S/P CABG x 4 Ischemic dilated cardiomyopathy ([facility]) Cardiac defibrillator in situ Hypertension Morbid obesity ([facility]) Tobacco use disorder Acute metabolic encephalopathy Acute respiratory failure with hypoxia and hypercapnia ([facility]) Pulmonary edema cardiac cause ([facility]) ASSESSMENT & PLAN NSTEMI - patient underwent KERA placement on 12/27 - continue aspirin, statin, b alicja, felix-I - cardiology consulted and onboard Ischemic cardiomopathy with EF 40-45% and grade 1 diastolic dysfunction - will continue with lasix 20mg bid for today and plan to change to PO lasix tomorrow. - monitor I and O Hx of paroxysmal vtach - s/p AICD with generator changed in 2010 Acute hypoxic/hypercarbic respiratory failure multifactorial secondary to NSTEMI and ischem ic cardiomyopathy - patient also uses tobacco and may have underlying copd - will continue with PO prednisone x 5 days. Today is day 2. Will continue - wean oxygen as tolerated. - home oxygen evaluation Acute metabolic encephalopathy - s/p cardiac cath. Now resolved HTN - continue current medications Obesity - lifestyle modifications GI/DVT prophylaxis PT consulted: recommending home assist, home health. Francesco Edmonds MD 12/30/2017 3:44 PM Greater than 35 minutes spent today overall in coordination of care, seeing and managing pa tient, review of data, coordination with staff, coordination with involved consultants, and including any scheduled multidisciplinary rounding focused on the patient with 50 percent or more spent seeing and managing patient and counseling/coordination. Dictation software, [employer], used which may contain error for similar sounding words even af ter review. Personal communication requested for any clarification. Portions of this chart may have been copied from previous notes for continuity of care purp ose onversion Transacti on, Provider Unknown - 12/30/2017 12:10 PM PDTFormatting of this note might be different fro m the original. Case Management by Wandy Gong RN at 12/30/17 1210 Author: Wandy Gong RN Service: (none) Author Type: Registered Nurse Filed: 12/30/17 1230 Date of Service: 12/30/17 1210 Status: Addendum Siphoner: Wandy Gong RN (Registered Nurse) Related Notes: Original Note by Wandy Gong RN (Registered Nurse) filed at 12/30/17 122 3 Pt needing home O2, she has selected [facility]. Notified [facility], radha gardner will start process, faxed script. PT recommending HH services, pt wants [facility]. Referral sent. F2F referral in [facility] Tentative d/c is Wednesday Tc to [facility] with oSndra re d/c plan, Rita onver darnell Transaction, Provider Unknown - 12/30/2017 11:26 AM PDT Progress Notes by Dasha Yun CRT at 12/30/171125 Author: Dasha Yun CRT Service: (none) Author Type: Certified Respiratory The rapist Filed: 12/30/171125 Date of Service: 12/30/171125 Status: Signed Siphoner: Dasha Yun CRT (Certified Respiratory Therapist) [facility] Department of Respiratory Snf Oxygen Evaluation (Evaluation is valid for 48 hours once completed) Date: 12/30/2017 RT: Dasha Yun Time: 11:26 AM Home O2 Eval at rest-Part 1 Is the patient's SpO2 88% or lower at rest & breathing room air? : Yes SpO2 at rest & breathing room air: 85 percent If yes, lpm O2 to keep SpO2 88% or higher at rest: 3 lpm SpO2 on O2 at rest : 92 percent Home O2 Eval during exercise-Part 2 Is the patient's SpO2 88% or lower during exercise & breathing room air? : Yes If yes, lpm O2 to keep SpO2 88% or higher during excercise: 3 lpm SpO2 on O2 during exercise: 90 percent Home O2 Eval Comment Eval Comment: Walked with pt about 100 feet around unit. Pt did not complain of any shortn ess of breath or dizziness. Requiring 3L NC at rest and with exercise. HOME OXYGEN PROVIDER PREFERENCE PHONE FAX *NOTE* Provider must include liter flow, route of oxygen administration, frequency of use w ith duration of need in months on the prescription AND document patient s diagnosis. OXYGEN PRN IS NOT A VALID ORDER Physician Signature: Date: Time: onver darnell Transaction, Provider Unknown - 12/30/2017 4:32 AM PDT Nurse Progress Note by Merlene Vieira RN at 12/30/17431 Author: Merlene Vieira RN Service: (none) Author Type: Registered Nurse Filed: 12/30/17431 Date of Service: 08/16/18 0432 Status: Signed Siphoner: Merlene Vieira RN (Registered Nurse) Chart check complete. onver darnell Transaction, Provider Unknown - 12/29/2017 5:39 PM PDT Nurse Progress Note by Pamela Wagner RN at 12/29/17 173 Author: Pamela Wagner RN Service: (none) Author Type: Registered Nurse Filed: 12/29/171746 Date of Service: 12/29/171738 Status: Addendum Siphoner: Pamela Wagner RN (Registered Nurse) Related Notes: Original Note by Pamela Wagner RN (Registered Nurse) filed at 12/29/171746 Patient had uneventful shift. No complains of pain. SBP 90-100s, 2LO2 at 89-92%, lung sound s are coarse with expiratory wheezes. IV lasix started today. Heart rhythm SR. Activity 1PA with 4WW with movement. Denies complaints or concerns, all questions answered. Hourly roundi ng uneventful. End of shift chart check completed, all medications given within required perameters. Pamela Wagner RN Tres Pizarro MD - 12/29/2017 5:06 PM PDTFormatting of this note might be different from the o riginal. Progress Notes by Tres Beltran MD at 12/29/17 1706 Author: Tres Beltran MD Service: (none) Author Type: Physician Filed: 12/30/17 1629 Date of Service: 12/29/17 1706 Status: Signed Siphoner: Tres Beltran MD (Physician) Related Notes: Original Note by Tres Beltran MD (Physician) filed at 12/29/17 1712 [facility] Service: Cardiology Progress Note SUBJECTIVE Currently she is feeling fine. She denies shortness of breath or chest pain. Objective Scheduled Medications aspirin 81 mg Oral Daily with breakfast atorvastatin 40 mg Oral Nightly cholecalciferol 1,000 Units Oral Daily clopidogrel 75 mg Oral Daily enoxaparin 40 mg Subcutaneous Q24H escitalopram 20 mg Oral Daily furosemide 20 mg Intravenous BID-Diuretics insulin lispro (human) 0-3 Units Subcutaneous Nightly insulin lispro (human) 0-6 Units Subcutaneous TID AC ipratropium-albuterol 3 mL Nebulization Q6H isosorbide dinitrate 60 mg Oral Daily lisinopril 5 mg Oral Daily metoprolol 25 mg Oral Daily nicotine 1 patch Transdermal Q24H predniSONE 40 mg Oral Daily with breakfast Continuous Infusions dextrose Vital Signs: BP 117/56 (BP Location: Right upper arm) | Pulse 70 | Temp 99.1 F (37.3 C) (Oral) | Resp 18 | Ht 1.727 m (5' 8") | Wt 100.8 kg (222 lb 3.6 oz) | SpO2 94% | ? N o | BMI 33.79 kg/m She is fully alert and oriented. Mood is good. Lungs: Scattered wheezes and rhonchi. He art: Regular rate and rhythm. Extremities: No significant edema. DATA DATA CBC: Lab Results Component Value Date WBC 10.56 12/29/2017 RBC 3.58 (L) 12/29/2017 HGB 12.4 12/29/2017 HCT 36.1 12/29/2017 MCV 100.9 (H) 12/29/2017 MCH 34.6 (H) 12/29/2017 MCHC 34.3 12/29/2017 RDW 50.8 12/29/2017 PLT 157 12/29/2017 MPV 8.7 12/29/2017 DIFFTYPE AUTOMATED 12/29/2017 CMP: Lab Results Component Value Date NA 140 12/29/2017 K 4.1 12/29/2017 K 5.4 (H) 12/27/2017 CL 101 12/29/2017 CO2 33 (H) 12/29/2017 ANIONGAP 10 12/29/2017 GLUF 114 (H) 12/29/2017 BUN 26 (H) 12/29/2017 CREATININE 0.99 12/29/2017 BCR 26 12/29/2017 CA 8.1 (L) 12/29/2017 PROT 6.3 12/27/2017 ALB 2.8 (L) 12/27/2017 GLOB 3.5 12/27/2017 BILITOT 0.5 12/27/2017 ALP 72 12/27/2017 AST 135 (H) 12/27/2017 ALT 43 12/27/2017 EGFR 54 (L) 12/29/2017 BMP: Lab Results Component Value Date NA 140 12/29/2017 K 4.1 12/29/2017 K 5.4 (H) 12/27/2017 CL 101 12/29/2017 CO2 33 (H) 12/29/2017 ANIONGAP 10 12/29/2017 GLUF 114 (H) 12/29/2017 BUN 26 (H) 12/29/2017 CREATININE 0.99 12/29/2017 BCR 26 12/29/2017 CA 8.1 (L) 12/29/2017 EGFR 54 (L) 12/29/2017 Magnesium: Lab Results Component Value Date MG 2.4 12/29/2017 Phosphorus: Lab Results Component Value Date PHOS 2.0 (L) 12/29/2017 PT/INR: Lab Results Component Value Date INR 1.0 12/26/2017 PTT: Lab Results Component Value Date APTT 42 (H) 12/27/2017 [APTT Troponin: Lab Results Component Value Date TROPONINI 29.9 (HH) 12/27/2017 Last 3 Troponin: Lab Results Component Value Date TROPONINI 29.9 (HH) 12/27/2017 TROPONINI 20.7 (HH) 12/26/2017 TROPONINI 1.84 (HH) 12/26/2017 HgBA1c: Lab Results Component Value Date HGBA1C 6.3 (H) 12/27/2017 LABGLYC 134 12/27/2017 TSH: Lab Results Component Value Date TSH 1.050 12/27/2017 CPK:No components found for: CPK CPK-MB: No components found for: CPKMB Radiology Review: See report Impression 1. Non-ST elevation myocardial infarction with subsequent stenting of a vein graft to the t hird obtuse marginal. 2. Encephalopathy, resolved. 3. Chronic obstructive pulmonary disease, with exacerbation. 4. Ongoing tobacco abuse. 5. Hypertension. 6. History of ventricular tachycardia with subsequent implantable cardioverter defibrillato r implant. 7. Mild LV dysfunction, ejection fraction 40-45%. 8. Oidqgyso-jf-ytfenl pulmonary hypertension without significant valvular disease. 9. Obesity. PLAN: Continue with her current regimen, including aspirin and Plavix, aggressive pulmonar y toilet, and aerosols for her COPD. Careful diuresis is needed. TRES BELTRAN MD 12/29/2017 onversion Transacti on, Provider Unknown - 12/29/2017 12:37 PM PDTFormatting of this note might be different fro m the original. Case Management by Wandy Gong RN at 12/29/17 1237 Author: Wandy Gong RN Service: (none) Author Type: Registered Nurse Filed: 12/29/17 1240 Date of Service: 12/29/177 Status: Signed Siphoner: Wandy Gong RN (Registered Nurse) Met with pt and daughter Cierra re d/ c planning. [place] in [place], uses [facility] and has a state paid caregiver. Pt states she plans to return home and no needs are expressed at thi s time. [phone]. Family to transport back [facility] Francesco Hardy i, MD - 12/29/2017 12:37 PM PDTFormatting of this note might be different from the o riginal. Progress Notes by Francesco Edmonds MD at 12/29/17 1237 Author: Francesco Edmonds MD Service: Hospitalist Author Type: Physician Filed: 12/29/17 1244 Date of Service: 12/29/177 Status: Signed Siphoner: Francesco Edmonds MD (Physician) [facility] Service: Hospitalist Progress Note Pt: Yuliana Rosanna Mateo AGE/SEX: 77 y.o. female ROOM: 4448/4448-1 : 1940 PCP: Roxana Barajas ADMIT DATE: 12/26/2017 TODAY'S DATE: 12/29/2017 Hospital Day/Hospital Course: LOS: 3 days Per ICU notes " Patient Summary: From Sandrita Metz's 12/27/17 Consult Note: The patient is a 77 y.o.femalewith significant past medical history ofCAD s/p CABG x3 , ischemic dilated cardiomyopathy (last EF 50-55% 02/28), HTN, paroxysmal vtach s/p AICD ryan cement (2003), HTN, current smoker, who presented to [facility] in [facility] to midsternal chest pain that started when she went for a walk. The pain radiated to her L shoulder and she became nauseous and diaphoretic. The patient had similar episodes when she had her CABG in 1994. EKG was done at [facility] which revealed non-specific ST-T changes (no previous EKG to compare). She had borderline troponin elevation and was transferred to [facility] for cardiology services on heparin gtt. The patient was initially admitted to the hospitalist service on the afternoon of 12/26. Car diology was consulted, and patient underwent coronary angiogram with Dr. Morris the morning of 12/27. Two stents were placed in the vein graft to the OM3. During the procedure, the pat ient became progressively encephalopathic with increasing tachypnea and wheezing, so the ICU team was consulted. The patient was started on BiPAP and brought to the ICU. ICU Timeline: 12/27- transferred from mobile lab technician to ICU for decreased LOC following sedation medications wit h wheezing and respiratory distress, was placed on BIPAP and got Solumedrol; she awoke short ly after arrived in ICU" SUBJECTIVE: Patient seen and examined. She is doing okay today. She does continue to use oxygen. Does f eel some shortness of breath, but better than yesterday.No chest pain, + cough. Had no orth opnea or PND. No Abdominal pain, N/V or fever. No dizziness or lightheadedness. Scheduled Medications: aspirin 81 mg Oral Daily with breakfast atorvastatin 40 mg Oral Nightly cholecalciferol 1,000 Units Oral Daily clopidogrel 75 mg Oral Daily enoxaparin 40 mg Subcutaneous Q24H escitalopram 20 mg Oral Daily furosemide 20 mg Intravenous BID-Diuretics insulin lispro (human) 0-3 Units Subcutaneous Nightly insulin lispro (human) 0-6 Units Subcutaneous TID AC ipratropium-albuterol 3 mL Nebulization Q6H isosorbide dinitrate 60 mg Oral Daily lisinopril 5 mg Oral Daily metoprolol 25 mg Oral Daily nicotine 1 patch Transdermal Q24H predniSONE 40 mg Oral Daily with breakfast Continuous Infusions dextrose PRN Medications acetaminophen OR acetaminophen, albuterol, dextrose, dextrose, dextrose, glucagon, gluc agon, morphine OR morphine OR morphine, nitroGLYCERIN, ondansetron OR ondansetro n, perflutren lipid microspheres, polyethylene glycol, sodium chloride 0.9 %, zolpidem Allergy: No Known Allergies OBJECTIVE: Vitals: Patient Vitals for the past 24 hrs: BP Temp Temp src Pulse Resp SpO2 12/29/17 1106 103/50 98.8 F (37.1 C) Oral 104 20 91 % 12/29/17 0833 - 99.8 F (37.7 C) Oral - - - 12/29/17 0831 105/57 - - 81 20 92 % 12/29/17 0320 121/56 99.1 F (37.3 C) Oral 74 20 95 % 12/29/17 0008 107/55 97.8 F (36.6 C) Oral 77 20 95 % 12/28/17 1917 100/46 98.8 F (37.1 C) Oral 76 20 98 % 12/28/17 1459 - 98.2 F (36.8 C) Oral 77 21 94 % 12/28/17 1430 109/58 - - 96 (!) 31 97 % 12/28/17 1415 109/54 - - 84 23 97 % 12/28/17 1400 109/53 - - 88 23 97 % 12/28/17 1345 108/54 - - 87 21 98 % 12/28/17 1330 100/46 - - 83 22 - 12/28/17 1315 114/53 - - 75 22 92 % 12/28/17 1300 106/53 - - 71 16 91 % 12/28/17 1245 103/51 - - 72 14 92 % 12/28/17 1241 103/53 - - - - - I&O Detailed Table: Intake/Output Summary (Last 24 hours) at 12/29/17 1237 Last data filed at 12/29/17 1106 Gross per 24 hour Intake 100 ml Output 1650 ml Net -1550 ml Patient Vitals for the past 96 hrs: Weight 12/28/17 0430 100.8 kg (222 lb 3.6 oz) 12/27/17 1115 108.8 kg (239 lb 13.8 oz) 12/26/17 1559 100.2 kg (220 lb 14.4 oz) Physical Examination: Constitutional: Awake, interactive. Appears well-developed and well-nourished. HEENT: Neck supple, no JVD, non icteric sclera. Cardiovascular: Normal rate, regular rhythm, and intact distal pulses. Exam reveals no remedios reciated gallop or friction rub. No murmur heard. Pulmonary/Chest: Effort normal and breath sounds normal. No stridor. No respiratory distres s. + wheezes. no rales. There are some coarse breath sounds. Abdominal: Soft. Bowel sounds are normal. exhibits no distension and no mass. There is no t enderness. There is no rebound and no guarding. Extremeties/Musculoskeletal: Normal range of motion for patient. exhibits no tenderness. e xhibits trace edema. Neurological: Alert and oriented to person, place, and time. . No cranial nerve deficit a ppreciated. Exhibits normal muscle tone. Coordination normal. Skin: Skin is warm and dry. No rash noted. No erythema. No pallor. Psychiatric: Has a normal mood and affect given situation. Behavior is normal. LABS: Recent Labs Lab 12/29/1751212/28/17 0759 12/27/17 1035 12/27/17 0458 WBC 10.56 10.84 -- -- 8.72 HGB 12.4 12.7 13.3 < > 12.8 HCT 36.1 38.4 39 < > 37.2 PLT 157 149* -- -- 143* NEUTOPHILPCT 76.15 81.66 -- -- 74.87 MONOPCT 8.46 8.85 -- -- 7.15 < > = values in this interval not displayed. Recent Labs Lab 12/29/17 0513 12/28/17 0759 12/27/17 1646 12/27/17 0458 NA 140 139 -- -- 139 K 4.1 4.2 4.4 < > 4.9 CL 101 101 -- -- 104 CO2 33* 32 -- -- 27 BUN 26* 27* -- -- 16 CREATININE 0.99 1.2* -- -- 1.1* PROT -- -- -- -- 6.3 BILITOT -- -- -- -- 0.5 ALT -- -- -- -- 43 AST -- -- -- -- 135* < > = values in this interval not displayed. Phosphorus: Lab Results Component Value Date PHOS 2.0 (L) 12/29/2017 Invalid input(s): LABALBU Recent Labs Lab 12/29/17 0513 12/28/17 0723 12/27/17 1646 MG 2.4 2.5* 2.2 No results for input(s): AMYLASE in the last 168 hours. Recent Labs Lab 12/27/17 1539 12/27/17 1035 12/27/17 1026 BEART 1 1 1 Recent Labs Lab 12/27/17 0651 12/26/17 2341 12/26/17 1645 APTT 42* 37* 45* INR -- -- 1.0 Recent Labs Lab 12/27/17 0458 TSH 1.050 Recent Labs Lab 12/27/17 0458 12/26/17 2341 12/26/17 1645 TROPONINI 29.9* 20.7* 1.84* Results Procedure Component Value Units Date/Time MRSA by PCR [[id number]] Collected: 12/27/17 1133 Specimen: Nasopharyngeal from Nares(Nose) Updated: 12/27/17 1254 SOURCE NARES(NOSE) MRSA PCR NEGATIVE RADIOLOGY: X-ray Chest 1 View Result Date: 12/27/2017 Cardiomegaly. Bilateral pulmonary vascular congestion and pulmonary edema. Electronically s igned by Claude Owen MD on 12/27/2017 11:28 AM X-ray Chest 1 View Result Date: 12/26/2017 1. Median sternotomy with prominent cardiac enlargement and sequential pacer. 2. Suspecte d CHF with interstitial edema, perhaps with subtle left effusion. Echo Cardiac Adult With Contrast Result Date: 12/27/2017 1. This was a technically difficult study with suboptimal views. Patient supine. 2. Overall left ventricular systolic function is mild-moderately impaired with, an EF between 40 - 45 %. 3. The diastolic filling pattern indicates impaired relaxation consistent with mild dysfu nction (Grade I). 4. The RV was not well visualized in apical views, but appears to have nor mal systolic function on limited subcostal and parasternal views. 5. There is moderate to se federico pulmonary hypertension. The right ventricular systolic pressure (pulmonary artery syst olic pressure), as measured by Doppler, is 58 - 63 mm Hg. 6. No significant valvular abnorma lities are noted. 7. There are several clinically significant changes noted in comparison to the previous echocardiographic study, done 02/26/15, as detailed below. PROBLEM LIST Principal Problem: NSTEMI (non-ST elevated myocardial infarction) ([facility]) Active Problems: S/P CABG x 4 Ischemic dilated cardiomyopathy (HCC) Cardiac defibrillator in situ Hypertension Morbid obesity (HCC) Tobacco use disorder Acute metabolic encephalopathy Acute respiratory failure with hypoxia and hypercapnia (HCC) Pulmonary edema cardiac cause ([facility]) ASSESSMENT & PLAN NSTEMI - patient underwent KERA placement on 12/27 - continue aspirin, statin, b alicja, felix-I - cardiology consulted and onboard Ischemic cardiomopathy with EF 40-45% and grade 1 diastolic dysfunction - will continue with lasix 20mg bid - monitor I and O Hx of paroxysmal vtach - s/p AICD with generator changed in 2010 Acute hypoxic/hypercarbic respiratory failure multifactorial secondary to NSTEMI and ischem ic cardiomyopathy - patient also uses tobacco and may have underlying copd - will continue with PO prednisone x 5 days. Today is day 1 - wean oxygen as tolerated. Acute metabolic encephalopathy - s/p cardiac cath. Now resolved HTN - continue current medications Obesity - lifestyle modifications GI/DVT prophylaxis PT consulted. Francesco Edmonds MD 12/29/2017 12:37 PM Greater than 35 minutes spent today overall in coordination of care, seeing and managing pa tient, review of data, coordination with staff, coordination with involved consultants, and including any scheduled multidisciplinary rounding focused on the patient with 50 percent or more spent seeing and managing patient and counseling/coordination. Dictation software, [employer], used which may contain error for similar sounding words even af ter review. Personal communication requested for any clarification. Portions of this chart may have been copied from previous notes for continuity of care purp ose onversion Transacti on, Provider Unknown - 12/29/2017 6:51 AM PDTFormatting of this note might be different fro m the original. Nurse Progress Note by Merlene Vieira RN at 12/29/1751 Author: Merlene Vieira RN Service: (none) Author Type: Registered Nurse Filed: 12/29/17650 Date of Service: 12/29/17650 Status: Signed Siphoner: Merlene Vieira RN (Registered Nurse) No acute events overnight, VSS, no c/o chest pain. onver darnell Transaction, Provider Unknown - 12/29/2017 3:24 AM PDT Nurse Progress Note by Merlene Vieira RN at 12/29/17323 Author: Merlene Vieira RN Service: (none) Author Type: Registered Nurse Filed: 12/29/175 Date of Service: 12/29/17323 Status: Signed Siphoner: Merlene Vieira RN (Registered Nurse) 12hr chart check complete. onver darnell Transaction, Provider Unknown - 12/28/2017 5:48 PM PDT Nurse Progress Note by Johnson Ames RN at 12/28/171747 Author: Johnson Ames RN Service: (none) Author Type: Registered Nurse Filed: 12/28/171750 Date of Service: 12/28/171747 Status: Signed Siphoner: Johnson Ames RN (Registered Nurse) PT transfer to [facility] at 1500 in stable condition. New pure wick place to monitor UO and incon tinence. Pt expressed fatigue and is currently resting quiet in bed arouses easily. Pt O2 sa ts 92% on 3L NC. 12 HR chart check complete. Johnson Ames RN onver darnell Transaction, Provider Unknown - 12/28/2017 3:31 PM PDT Case Management by ESTER Rice at 12/28/17 1531 Author: ESTER Rice Service: (none) Author Type: High Lift Driver Filed: 12/28/17 9758 Date of Service: 12/28/17 1531 Status: Signed Siphoner: ESTER Rice (High Lift Driver) 12/28/17 1521 Discharge Planning Evaluation Admitting Diagnosis Unstable angina. Readmission No Living Arrangements Children;Family members Support Systems Children;Family members Type of Residence Private residence House type House-1 story Steps to enter (0- pt had a ramp built) Bathrooms on 1st Floor 1-Full Independent with ADL's No-comment Independent with Mobility Yes Caregiver after Discharge Yes Caregiver Name Martha Montenegro Relationship to Patient Caregiver Phone number [phone] Mental Status Unable to answer questions (Pt was asleep) Power of Senior Software Test Engineer No Resources Financial concerns No Transportation issues No (Pt can drive, but not often. However, her caregiver and daughter will pick pt up from the hospital. ) Patient/Family concerns [place] [facility] Anticipated Disposition Facility Type Home Met with Yuliana Humphreys and discussed discharge planning. However, pt was asleep sp assessm ent was done over the phone with pt's daughter, Cierra Higgins ([phone]). Pt is a 77 y .o., female who resides with her daughter (Cierra), Cierra's boyfriend, and Cierra's 23 year old son. Pt resides at: [address] [place] [address], [place], [place] [facility]. Pt does not have to w alk up any steps to get into the house, there is a ramp. Pt's daughter reports good family and friend support. Pt's daughter states that she helps her mom with cooking, cleaning, etc. Patient's PCP is: Duc Person at [facility] Pt's daughter states that she is independent with mobility. However, if pt is walking a dis tance or traveling, she will use a cane. Pt's daughter states that pt does not use home oxygen. Pt has not received previous outpatient services. Pt is not currently on any blood thinners. Patient's insurance: Medicaid, Medicare, and [employer] [facility] insurance Coverage concerns: No Medication coverage/concerns: No Rx Bedside Delivery: Pt [facility] to [facility] resources utilized / needed: Pt receives caregiving hours through [facility] in [place]. Pt's embedded case manager is Melly Harris [phone]. Pt's ca regiver is Martha Montenegro ([phone]). Pt's daughter states that she gets around 18 hour s a week of caregiving services. Assistance in transportation: Pt can drive a small amount. However, her caregiver helps wit h transportation Identification of any specific education / training: TBD Barriers to Discharge / Alternative housing needed: TBD Anticipated DCP: Home Pt does not have an Advanced Directive or a Power of Senior Software Test Engineer. Paperwork should be given to family (pt was transferred from ICU prior to receiving paperwork). ESTER Rice onver darnell Transaction, Provider Unknown - 12/28/2017 2:16 PM PDT Nurse Progress Note by Johnson Ames RN at 12/28/17 1416 Author: Johnson Ames RN Service: (none) Author Type: Registered Nurse Filed: 12/28/17 1416 Date of Service: 12/28/171415 Status: Signed Siphoner: Johnson Ames RN (Registered Nurse) Report received from Leticia RECREATIONAL ASSISTANT. PT transferred to [facility] in stable condition. onver darnell Transaction, Provider Unknown - 12/28/2017 12:23 PM PDT Case Management by ESTER Cota at 12/28/17 1223 Author: ESTER Cota Service: (none) Author Type: High Lift Driver Filed: 12/28/17 8098 Date of Service: 12/28/17 1223 Status: Signed Siphoner: ESTER Cota (High Lift Driver) Spoke with Kell from [facility]. Informed that pt has not yet been assessed. She is reque sting that the discharging CM call her to notify of any d/c needs and give an update regardi ng d/c plan. Kell- [phone] onver darnell Transaction, Provider Unknown - 12/28/2017 10:51 AM PDT Case Management by ESTER Rice at 12/28/17 1051 Author: ESTER Rice Service: (none) Author Type: High Lift Driver Filed: 12/28/17 1058 Date of Service: 12/28/17 105 Status: Signed Siphoner: ESTER Rice (High Lift Driver) CM attended morning rounds. Pt is in the ICU for NSTEMI. Pt is awake and alert. Pt is on 3 liters of nasal cannula. Pt is currently NPO. Plan is to transfer pt out of ICU today. CM will assess today. ESTER Rice Sherly Shannon DO - 12/28/2017 4:06 AM PDT Progress Notes by Sherly Coppola DO at 12/28/17 0406 Author: Sherly Coppola DO Service: Jewelry Sales Author Type: Physician Filed: 12/28/17 0624 Date of Service: 12/28/17 0406 Status: Signed Siphoner: Sherly Coppola DO (Physician) [facility] Service: Jewelry Sales Progress Note Yuliana Marte Humphreys 77 y.o. Hospital Day: LOS: 2 days Post-Op Day: * No surgery found * Consulting Physicians Treatment Team: Consulting Physician: Nash Genao MD Consulting Physician: Yvette Morris MD Admitting Provider: Pasha Buck MD SUBJECTIVE Patient Summary: From Sandrita Metz's 12/27/17 Consult Note: The patient is a 77 y.o. female with significant past medical history of CAD s/p CABG x3, i schemic dilated cardiomyopathy (last EF 50-55% 02/28), HTN, paroxysmal vtach s/p AICD placem ent (2003), HTN, current smoker, who presented to [facility] in [place] due to midsternal chest pain that started when she went for a walk. The pain radiated to her L shou lder and she became nauseous and diaphoretic. The patient had similar episodes when she had her CABG in 1994. EKG was done at [place] which revealed non-specific ST-T changes (no pre vious EKG to compare). She had borderline troponin elevation and was transferred to [facility] for cardiology services on heparin gtt. The patient was initially admitted to the hospitalist service on the afternoon of 12/26. Car diology was consulted, and patient underwent coronary angiogram with Dr. Morris the morning of 12/27. Two stents were placed in the vein graft to the OM3. During the procedure, the pat ient became progressively encephalopathic with increasing tachypnea and wheezing, so the ICU team was consulted. The patient was started on BiPAP and brought to the ICU. ICU Timeline: 12/27- transferred from mobile lab technician to ICU for decreased LOC following sedation medications with wheezing and respiratory distress, was placed on BIPAP and got Solumedrol; she awoke sh ortly after arrived in ICU Events Overnight: Had 3 episodes of CP during the night. Each improved with SL nitro and gave GI cocktail. Brief bradycardia episodes while having CP. EKG unchanged. CP nearly g one this am. Still having some nausea, no vomiting. SCHEDULED MEDICATIONS aspirin 81 mg Oral Daily with breakfast atorvastatin 40 mg Oral Nightly cholecalciferol 1,000 Units Oral Daily clopidogrel 75 mg Oral Daily enoxaparin 40 mg Subcutaneous Q24H escitalopram 20 mg Oral Daily insulin lispro (human) 0-3 Units Subcutaneous Nightly insulin lispro (human) 0-6 Units Subcutaneous TID AC ipratropium-albuterol 1 puff Inhalation 4x Daily isosorbide dinitrate 30 mg Oral Daily lisinopril 5 mg Oral Daily metoprolol 25 mg Oral Daily nicotine 1 patch Transdermal Q24H CONTINUOUS INFUSIONS dextrose OBJECTIVE VITAL SIGNS Temp: [97.7 F (36.5 C)-99.4 F (37.4 C)] 97.7 F (36.5 C) Heart Rate: [51-83] 68 Resp: [10-31] 22 BP: (83-181)/(39-80) 109/59 FiO2 : [40 %-50 %] 40 % Intake/Output Summary (Last 24 hours) at 12/28/17 0407 Last data filed at 12/28/17 0000 Gross per 24 hour Intake 173.98 ml Output 1200 ml Net -1026.02 ml EXAM GEN: morbidly obese, awake, alert, oriented x3, NAD NEURO: PERRLA, EOMI, no facial asymmetry, moves all extremities well HEENT: sclerae clear, nonicteric, oral mmm, pink, no exudates, edentulous NECK: supple, trachea midline CV: RRR, S1/S2, ?1/6 early systolic murmur, no rub or gallop LUNGS: clear b/l, no rales or rhonchi, faint expiratory wheezing L base on posterior exam, symmetric chest expansion, even/unlabored respirations ABD: soft, obese, nondistended, nontender to palpation EXTR: no edema, clubbing or cyanosis SKIN: warm, dry, no rash or mottling LINES/TUBES: PIV DATA Recent Labs Lab 12/27/17 1035 12/27/17 1026 12/27/17 0458 WBC -- -- 8.72 RBC -- -- 3.68* HGB 13.3 13.3 12.8 HCT 39 39 37.2 MCV -- -- 101.0* MCH -- -- 34.7* MCHC -- -- 34.3 RDW -- -- 52.1 PLT -- -- 143* MPV -- -- 8.5 NEUTROABS -- -- 6.53 LYMPHSABS -- -- 1.34 MONOSABS -- -- 0.62 BASOSABS -- -- 0.07 EOSABS -- -- 0.16 Recent Labs Lab 12/27/17 1646 12/27/17 1035 12/27/17 1026 12/27/17 0458 NA -- -- -- 139 K 4.4 5.4* 5.2* 4.9 CL -- -- -- 104 CO2 -- -- -- 27 ANIONGAP -- -- -- 13 GLUF -- -- -- 156* BUN -- -- -- 16 CREATININE -- -- -- 1.1* BCR -- -- -- 15 CA -- -- -- 8.4* ALB -- -- -- 2.8* GLOB -- -- -- 3.5 AG -- -- -- 0.8* PROT -- -- -- 6.3 BILITOT -- -- -- 0.5 ALT -- -- -- 43 AST -- -- -- 135* EGFR -- -- -- 48* PHOS -- -- -- 4.5 MG 2.2 -- -- 2.1 Recent Labs Lab 12/26/17 1645 INR 1.0 IMAGING X-ray Chest 1 View Result Date: 12/27/2017 Cardiomegaly. Bilateral pulmonary vascular congestion and pulmonary edema. Electronically s igned by Claude Owen MD on 12/27/2017 11:28 AM Echo Cardiac Adult With Contrast Result Date: 12/27/2017 1. This was a technically difficult study with suboptimal views. Patient supine. 2. Overall left ventricular systolic function is mild-moderately impaired with, an EF between 40 - 45 %. 3. The diastolic filling pattern indicates impaired relaxation consistent with mild dysfu nction (Grade I). 4. The RV was not well visualized in apical views, but appears to have nor mal systolic function on limited subcostal and parasternal views. 5. There is moderate to se federico pulmonary hypertension. The right ventricular systolic pressure (pulmonary artery syst olic pressure), as measured by Doppler, is 58 - 63 mm Hg. 6. No significant valvular abnorma lities are noted. 7. There are several clinically significant changes noted in comparison to the previous echocardiographic study, done 02/26/15, as detailed below. PROBLEM LIST Principal Problem: NSTEMI (non-ST elevated myocardial infarction) ([facility]) Active Problems: S/P CABG x 4 Ischemic dilated cardiomyopathy (HCC) Cardiac defibrillator in situ Hypertension Morbid obesity (HCC) Tobacco use disorder Acute metabolic encephalopathy Acute respiratory failure with hypoxia and hypercapnia (HCC) Pulmonary edema cardiac cause ([facility]) Resolved Problems: * No resolved hospital problems. * ASSESSMENT & PLAN NEURO: Acute metabolic encephalopathy - likely related to sedating medication leading to respir atory failure with hypercarbia. No other e/o allergic reaction. Improved and off BIPAP. CAM-ICU monitoring CV: NSTEMI with underlying CAD s/p 2-KERA placement to SVG to OM3 by Dr. Morris 12/27. On ASA , atorvastatin, clopidogrel, lisinopril and metoprolol. Medical management per cardiology. Repeat episodes of CP. Difficult to tell if angina vs non cardiac CP. Nitro helped but a lso gave GI cocktail. Cont to monitor on tele. Repeat EKG was unchanged. Ischemic dilated cardiomyopathy. Last echo in 2014 with LVEF 55%. ECHO 12/27 EF 40-45%, G rade I diastolic dysfunction, mod-severe pulm HTN. On ACEI, resumed furosemide. Acute on chronic systolic and diastolic CHF: will repeat IV Lasix this am. Resume home p o Lasix once euvolemic. Hx of paroxysmal v-tach with subsequent AICD placement in 2003, generator changed 2010. PULM: Acute hypoxic and hypercarbic respiratory failure: as above. Resolved. Acute pulmonary edema - patient did not receive diuretic AM of admission in anticipation of procedure, and received additional IVF during procedure. Gave dose of IV Lasix post proc edure. Current smoker - program counselor regarding smoking cessation COPD/asthma: cont scheduled Combivent, prn albuterol. GI/NUTRITION: NPO. Reassess this am. ADAT if remains stable this am. Morbid obesity: complicates other medical comorbidities, affects breathing. RENAL/LYTES: Renally dose medications, avoid nephrotoxins. Monitor electrolytes and replace per protocol Follow I/O. No idication for Norton catheter. ID: No evidence of infection. Patient is afebrile with normal WBC. HEME: No active issues ENDO: No hx of DM. A1c 6.3. On SSI for blood sugar control, likely pre-diabetic. TSH wnl 1.05 MUSC/SKIN: No issues PROPHYLAXIS: Stress ulcer prophylaxis: not indicated DVT prophylaxis: SCDs, enoxaparin Disposition: Pt is improving. Can likely transfer out of ICU later this am. Code Status: Full Code *Please bill 40 minutes of high complexity time spent evaluating the patient, reviewing the data and formulating a plan exclusive of all other procedures. Sherly Coppola DO 12/28/2017 onversion [place]rell saction, Provider Unknown - 12/27/2017 5:39 PM PDTFormatting of this note might be differen t from the original. Progress Notes by Melyssa Harley RN at 12/27/171738 Author: Melyssa Harley RN Service: (none) Author Type: Registered Nurse Filed: 12/27/173 Date of Service: 12/27/171738 Status: Signed Siphoner: Melyssa Harley RN (Registered Nurse) End of shift chart review completed onver darnell Transaction, Provider Unknown - 12/27/2017 5:00 PM PDT Progress Notes by Melyssa Harley RN at 12/27/17 1700 Author: Melyssa Harley RN Service: (none) Author Type: Registered Nurse Filed: 12/27/17 1815 Date of Service: 12/27/17 170 Status: Signed Siphoner: Melyssa Harley RN (Registered Nurse) Pt unable to ambulate at this time due to respiratory status. Pt is moving/bending right le g often and right groin continues unchanged onver darnell Transaction, Provider Unknown - 12/27/2017 4:35 PM PDT Progress Notes by Herbert Mayorga RRT at 12/27/17 163 Author: Herbert Mayorga RRT Service: (none) Author Type: Registered Respiratory Therap ist Filed: 12/27/171925 Date of Service: 12/27/17 1635 Status: Addendum Siphoner: Herbert Mayorga RRT (Registered Respiratory Therapist) Related Notes: Original Note by Herbert Mayorga RRT (Registered Respiratory Therapist) f iled at 12/27/171923 Patient became nauseated and started retching, Bipap mask was removed, RN notified and zofr an was given. MD notified and patient to remain off Bipap until night time (with sleep) onver darnell Transaction, Provider Unknown - 12/27/2017 2:15 PM PDT Case Management by ESTER Cota at 12/27/17 141 Author: ESTER Cota Service: (none) Author Type: High Lift Driver Filed: 12/27/17 1417 Date of Service: 12/27/17 141 Status: Signed Siphoner: ESTER Cota (High Lift Driver) Received message to call Kell with [facility] to discuss d/c planning. Pt was just admitt ed to the ICU. I plan to complete an assessment either today or tomorrow. Called Kell rhodes and left a VM requesting a return call. Kell- [phone] onver darnell Transaction, Provider Unknown - 12/27/2017 11:23 AM PDT Case Management by Wandy Gong RN at 12/27/17 1123 Author: Wandy Gong RN Service: (none) Author Type: Registered Nurse Filed: 12/27/17 1123 Date of Service: 12/27/17 1123 Status: Signed Siphoner: Wandy Gong RN (Registered Nurse) 12/27/17 1100 Discharge Planning Evaluation Admitting Diagnosis unstable angina Pt transferred to ICU before initial assessment could be done Rita onver darnell Transaction, Provider Unknown - 12/27/2017 11:15 AM PDT Progress Notes by Melyssa Harley RN at 12/27/17 1115 Author: Melyssa Harley RN Service: (none) Author Type: Registered Nurse Filed: 12/27/17 1515 Date of Service: 12/27/17 1115 Status: Signed Siphoner: Melyssa Harley RN (Registered Nurse) Per Dr. Israel Rhodes, tko NS due to fluid overload onver darnell Transaction, Provider Unknown - 12/27/2017 11:01 AM PDT Progress Notes by Melyssa Harley RN at 12/27/17 1101 Author: Melyssa Harley RN Service: (none) Author Type: Registered Nurse Filed: 12/27/17 1132 Date of Service: 12/27/17 1101 Status: Signed Siphoner: Melyssa Harley RN (Registered Nurse) Pt arrived to ICU room 61883 onver darnell Transaction, Provider Unknown - 12/27/2017 7:35 AM PDT Nurse Progress Note by Jane Real RN at 12/27/1735 Author: Jane Real RN Service: -Emergency Author Type: Registered Nurse Filed: 12/27/17 1034 Date of Service: 12/27/17734 Status: Signed Siphoner: Jane Real RN (Registered Nurse) During report mobile lab technician rn dante came to retrieve pt for procedure. Transfer of care performe d without event. onver darnell Transaction, Provider Unknown - 12/27/2017 2:21 AM PDT Nurse Progress Note by Demian Ling RN at 12/27/17220 Author: Demian Ling RN Service: (none) Author Type: Registered Nurse Filed: 12/27/17 0606 Date of Service: 12/27/17220 Status: Addendum Siphoner: Demian Ling RN (Registered Nurse) Related Notes: Original Note by Demian Ling RN (Registered Nurse) filed at 12/27/17220 MD not notified of Trop level d/t nursing communication order. Second elevation not called, see nursing communication order. onver darnell Transaction, Provider Unknown - 12/26/2017 7:20 PM PDT Nurse Progress Note by Lilliana Westbrook RN at 12/26/171919 Author: Lilliana Westbrook RN Service: (none) Author Type: Registered Nurse Filed: 12/26/171920 Date of Service: 12/26/171919 Status: Signed Siphoner: Lilliana Westbrook RN (Registered Nurse) Chart check review complete. Lilliana Westbrook onver darnell Transaction, Provider Unknown - 12/26/2017 4:50 PM PDT Pharmacy Note by Rolando Russell RPH at 12/26/170 Author: Rolando Russell RPH Service: Pharmacy Author Type: Pharmacist Filed: 12/26/17 165 Date of Service: 12/26/171649 Status: Signed Siphoner: Rolando Russell RPH (Pharmacist) Renal Dosing Monitoring: Yuliana Rosanna Humphreys 77 y.o. female Pharmacy dosing for renal function per Dr. Buck Creatinine clearance cannot be calculated (Patient's most recent lab result is older than t he maximum 30 days allowed.) Plan per protocol: No medications need adjustment at this time Pharmacy will continue to monitor changes in medication orders and renal function and will adjust accordingly. 12/26/2017 4:50 PM Pharmacist: Rloando Russell docume nted in this encounter H&P Notes Pasha Buck MD - 12/26/2017 4:35 PM PDTFormatting of this note might be differe nt from the original. H&P by Pasha Buck MD at 12/26/17 3145 Author: Pasha Buck MD Service: Hospitalist Author Type: Physician Filed: 12/27/17 1356 Date of Service: 12/26/17 1635 Status: Signed Siphoner: Pasha Buck MD (Physician) Related Notes: Original Note by Pasha Buck MD (Physician) filed at 12/26/17 16 52 [facility] Service: Hospitalist Admission History & Physical Date of Admission: 12/26/2017 Requesting Physician: [facility] ED physician. Reason for Admission: Unstable angina. History Obtained From: patient CHIEF COMPLAINT: Severe chest pain. Onset this morning. HISTORY OF PRESENT ILLNESS The patient is 77 y.o. female with significant past medical history of coronary artery dise ase status post CABG in 1994 in [place], ischemic cardiomyopathy with most recent ejection fr action of 50-55 percent, status post AICD placement, history of ventricular tachycardia, pre -diabetes mellitus, hypertension, ongoing tobacco abuse, history of pulmonary embolism 8 yea rs ago treated with Coumadin, who was in her usual health this morning, when she left home t o go for a walk. And while walking a few steps she experienced sudden onset of midsternal c hest pain that she described as someone squeezing inside of her chest. The pain radiated to her left shoulder. The patient felt nauseous and broke out with excessive sweating. Accor ding to the patient, she had similar symptoms just prior to CABG in 1994. She came to the emergency department of [facility] in [place], [place], where franklin khoury was given IV morphine as well as sublingual nitroglycerin. This temporarily resolved the pain. However, the pain recurred while she was still in the emergency department, and she r equired another dose of IV morphine and sublingual nitroglycerin, and since then she has rem ained chest pain free. Workup done at the other facility showed nonspecific ST and T-wave changes in EKG, but parker khoury was no previous EKG to compare. She also had borderline elevation of troponin at 0.059, a nd the cutoff limit in that hospital is less than 0.010. As no cardiology service is availa ble at [facility], hence the patient was transferred to this hospital after ER physician and myself discussed with Dr. Genao. The patient was started on IV heparin prior to transfer. She remained chest pain free during transport and currently denies any symptom s. The patient used to see Dr. Beltran, but her last visit to him was in September of last year. She d oes not remember what medications she takes and is a poor historian, and it was very difficu lt to obtain a useful history from her. She continues to smoke but could not verify how man y cigarettes she smokes every day. REVIEW OF SYSTEMS Review of Systems Constitutional: Positive for diaphoresis. Negative for activity change, appetite change, ch ills, fatigue, fever and unexpected weight change. HENT: Negative. Eyes: Negative. Respiratory: Positive for chest tightness and shortness of breath. Negative for apnea, coug h, choking, wheezing and stridor. Cardiovascular: Positive for chest pain and leg swelling. Negative for palpitations. Gastrointestinal: Positive for nausea. Negative for abdominal pain, anal bleeding, blood in stool, constipation and vomiting. Endocrine: Negative. Genitourinary: Negative. Musculoskeletal: Positive for neck pain. Skin: Negative. Neurological: Negative. Hematological: Negative. Psychiatric/Behavioral: Negative. Past Medical History Diagnosis Date Asthma Cardiac defibrillator in situ 08/15/2003 intial AICD 2003, generator change 03/27/11, [employer] Telogen E110, s# [id number]; R V Lead - Guidant 0184, s# [id number] (08/15/03); RA Lead - Guidant Fineline II EZ Sterox 4469, s # [id number] (08/15/03) CHF (congestive heart failure) ([facility]) chronic systolic heart failure, EF was 27% in the past, improved to 50-55% on echo 02/18/15 Community acquired pneumonia 2011 COPD (chronic obstructive pulmonary disease) ([facility]) h/o chronic bronchitis, long h/o tobacco abuse Coronary artery disease involving [place] coronary artery multi-vessel Diabetes mellitus type 2 in obese ([facility]) History of syncope 2003 secondary to VT Hyperlipidemia Hypertension Ischemic dilated cardiomyopathy ([facility]) EF was 27% on echo 08/01/03, improved to 50-55% on echo 02/18/15 [place] (myocardial infarction) 1997 Pulmonary embolism ([facility]) S/P CABG x 4 1997 Secondary pulmonary arterial hypertension ([facility]) mild, RVSP 40 mm Hg (echo 02/18/15) TB (tuberculosis) Tobacco abuse Ventricular tachycardia, paroxysmal ([facility]) 2003 with Syncope, + EPS for inducible VT - 08/14/03 Past Surgical History Procedure Laterality Date CARDIAC DEFIBRILLATOR PLACEMENT intial AICD 2003, generator change 03/27/11, [employer] Telogen E110, s# [id number]; R V Lead - Guidant 0184, s# [id number] (08/15/03); RA Lead - Guidant Fineline II EZ Sterox 4469, s # [id number] (08/15/03) CARDIAC DEFIBRILLATOR REMOVAL 03/27/2011 implanted 08/15/03, generator [facility] CORONARY ARTERY BYPASS GRAFT 1997 4-vessel KNEE JOINT MANIPULATION Bilateral PARTIAL HIP ARTHROPLASTY Right REPLACEMENT UNICONDYLAR JOINT KNEE Right rist Right No Known Allergies Prescriptions Prior to Admission Medication Sig Dispense Refill Last Dose acetaminophen (TYLENOL) 325 MG tablet Take 325 mg by mouth every 6 (six) hours as neede d for Pain. Taking allopurinol (ZYLOPRIM) 100 MG tablet Take 100 mg by mouth daily. Taking aspirin 81 MG tablet Take 81 mg by mouth daily. Taking cholecalciferol (VITAMIN D-3) 1000 UNITS tablet Take 1,000 Units by mouth daily. Taki ng clopidogrel (PLAVIX) 75 MG tablet Take 1 tablet by mouth daily. 30 tablet 11 Taking escitalopram (LEXAPRO) 20 MG tablet Take 20 mg by mouth daily. Taking furosemide (LASIX) 20 MG tablet Take 20 mg by mouth daily. Taking isosorbide dinitrate (ISORDIL) 30 MG tablet Take 30 mg by mouth daily. Taking lisinopril (ZESTRIL) 5 MG tablet Take 1 tablet by mouth daily. 90 tablet 3 Taking metoprolol (TOPROL-XL) 25 MG 24 hr tablet Take 25 mg by mouth daily. Taking nicotine (NICODERM CQ) 7 MG/24HR Place 1 patch onto the skin daily. Taking potassium chloride (KLOR-CON) 20 MEQ packet Take 20 mEq by mouth daily. Taking Family History Problem Relation Age of Onset Coronary Artery Disease Mother Social History Social History Marital status: Spouse name: N/A Number of children: N/A Years of education: N/A Occupational History Not on file. Social History Main Topics Smoking status: Heavy Tobacco Smoker Packs/day: 1.00 Years: 25.00 Smokeless tobacco: Never Used Alcohol use No Drug use: No Sexual activity: No Other Topics Concern Not on file Social History Narrative No narrative on file History Smoking Status Heavy Tobacco Smoker Packs/day: 1.00 Years: 25.00 Smokeless Tobacco Never Used History Alcohol Use No History Drug Use No PHYSICAL EXAM Vital Signs: BP 95/53 (BP Location: Right upper arm) | Pulse 85 | Temp 99.1 F (37.3 C) (Oral) | R lainey 18 | Ht 1.575 m (5' 2") | Wt 100.2 kg (220 lb 14.4 oz) | SpO2 95% | ? N o | BMI 40.40 kg/m Physical Exam Constitutional: She is oriented to person, place, and time. She appears well-developed and well-nourished. No distress. HENT: Head: Normocephalic. Mouth/Throat: No oropharyngeal exudate. Eyes: Pupils are equal, round, and reactive to light. No scleral icterus. Neck: Neck supple. No JVD present. Cardiovascular: Normal rate, regular rhythm and normal heart sounds. Exam reveals no lynn p and no friction rub. No murmur heard. Left pedal pulses normal. Right pedal pulses absent. Pulmonary/Chest: Effort normal and breath sounds normal. No respiratory distress. She has n o wheezes. She has no rales. She exhibits no tenderness. Abdomina/Gl: Soft. Bowel sounds are normal. She exhibits no distension and no mass. There i s no tenderness. There is no rebound and no guarding. No hernia. Musculoskeletal: She exhibits no edema, tenderness or deformity. Neurological: She is alert and oriented to person, place, and time. No cranial nerve defici t. Skin: Skin is warm and dry. Capillary refill takes less than 2 seconds. No rash noted. She is not diaphoretic. No erythema. No pallor. Psychiatric: She has a normal mood and affect. Her behavior is normal. Thought content norm al. Nursing note and vitals reviewed. DATA CBC: Lab Results Component Value Date WBC 7.5 03/27/2010 RBC 4.16 03/27/2010 HGB 13.8 03/27/2010 HCT 42.0 03/27/2010 MCV 101.0 (H) 03/27/2010 MCH 33.3 03/27/2010 MCHC 33.0 03/27/2010 PLT 180 03/27/2010 MPV 9.1 03/27/2010 CMP: Lab Results Component Value Date NA 144 03/27/2010 K 4.3 03/27/2010 CL 108 03/27/2010 CO2 26 03/27/2010 ANIONGAP 14 03/27/2010 GLUF 85 03/27/2010 BUN 17 03/27/2010 CREATININE 1.1 03/27/2010 BCR 16 03/27/2010 CA 9.2 03/27/2010 EGFR 52 (L) 03/27/2010 Workup done at the other facility is as follows: Troponin 0.059, cutoff being less than 0. 010, BNP 410. Hemoglobin 13.8, hematocrit 40.8, MCV 100.8, platelet count 156. Glucose 181 , BUN 15, creatinine 0.93, sodium 140, potassium 4, chloride 107, carbon dioxide 27, calcium 9.2. Bilirubin 0.4, AST 17, ALT 11, alkaline phosphatase 70. EKG shows normal sinus rhythm, right bundle branch block, and nonspecific ST and T-wave gerardo nges. PROBLEM LIST Principal Problem: Unstable angina pectoris (HCC) Active Problems: S/P CABG x 4 Ischemic dilated cardiomyopathy (HCC) Cardiac defibrillator in situ Hypertension Morbid obesity (HCC) Tobacco use disorder ASSESSMENT & PLAN 1. Chest pain, most likely due to unstable angina, though non-ST elevation TN cannot be ent irely ruled out. Troponin is borderline elevated at 0.059, and cutoff limit at other facil ity is less than 0.010. EKG shows nonspecific ST and T-wave changes. Currently the patient is chest pain free. I spoke with Dr. Genao, who plans to do a cardiac catheterization on he r later tonight or tomorrow morning. Meanwhile, we will continue IV heparin. She is on asp irin, metoprolol, and lisinopril at home and will continue all. Will monitor the patient on telemetry. 2. History of ischemic dilated cardiomyopathy with most recent ejection fraction per echoca rdiogram of 02/2015 was 50-55 percent and it also showed grade I diastolic dysfunction. I d o not see any signs of fluid overload. Nevertheless, we will repeat echocardiogram. She is on furosemide that I will hold for now, as the patient may undergo cardiac catheterization. She is on lisinopril and on metoprolol and will continue both. 3. Status post defibrillator in situ. No recent firing. 4. History of hypertension. We will continue current antihypertensive medications. 5. Prediabetes mellitus. Will check hemoglobin A1c and start the patient on Humalog as per sliding scale. 6. Tobacco use disorder. The patient is advised to refrain from smoking but the patient se ems to be unwilling to give up smoking. 7. Morbid obesity. She would benefit from losing some weight. This will help manage her c hronic problems, including diabetes mellitus, in a better way. 8. DVT prophylaxis. The patient is on IV heparin. Disposition: Inpatient Code Status: Full Code Primary Care Physician: Roxana Buck MD 12/26/2017 documented in this encounter Consult Notes Sandrita Metz ARNP - 12/27/2017 11:14 AM PDT Consult* by NASRA Fontanez at 12/27/17 3635 Author: NASRA Fontanez Service: [employer] Author Type: Advanced Registered Nu rse Practitioner Filed: 12/27/17 1503 Date of Service: 12/27/171113 Status: Signed Siphoner: NASRA Fontanez (Advanced Registered Nurse Practitioner) [facility] Service: Jewelry Sales Initial Consult Note Yuliana Humphreys 77 y.o. Date of Admission: 12/26/2017 Reason for Consultation: Respiratory failure Requesting Physician: Dr. Morris, Interventional Cardiology History Obtained From: chart review, Reason patient could not give history: altered menta l status, respiratory distress CHIEF COMPLAINT: chest pain HISTORY OF PRESENT ILLNESS The patient is a 77 y.o. female with significant past medical history of CAD s/p CABG x3, i schemic dilated cardiomyopathy (last EF 50-55% 02/28), HTN, paroxysmal vtach s/p AICD placem ent (2003), HTN, current smoker, who presented to [facility] in [place] due to midsternal chest pain that started when she went for a walk. The pain radiated to her L shou lder and she became nauseous and diaphoretic. The patient had similar episodes when she had her CABG in 1994. EKG was done at [place] which revealed non-specific ST-T changes (no pre vious EKG to compare). She had borderline troponin elevation and was transferred to [facility] for cardiology services on heparin gtt. The patient was initially admitted to the hospitalist service on the afternoon of 12/26. Car diology was consulted, and patient underwent coronary angiogram with Dr. Morris the morning of 12/27. Two stents were placed in the vein graft to the OM3. During the procedure, the pat ient became progressively encephalopathic with increasing tachypnea and wheezing, so the ICU team was consulted. The patient was started on BiPAP and brought to the ICU. REVIEW OF SYSTEMS Review of systems not obtained due to altered mental status. PAST MEDICAL HISTORY Past Medical History Diagnosis Date Anxiety With panic attacks Asthma Cardiac defibrillator in situ 08/15/2003 intial AICD 2003, generator change 03/27/11, [employer] Telogen E110, s# [id number]; R V Lead - Guidant 0184, s# [id number] (08/15/03); RA Lead - Guidant Fineline II EZ Sterox 4469, s # [id number] (08/15/03) CHF (congestive heart failure) (HCC) chronic systolic heart failure, EF was 27% in the past, improved to 50-55% on echo 02/18/15 Community acquired pneumonia 2011 COPD (chronic obstructive pulmonary disease) ([facility]) h/o chronic bronchitis, long h/o tobacco abuse Coronary artery disease involving [place] coronary artery multi-vessel Diabetes mellitus type 2 in obese ([facility]) diet controlled History of syncope 2003 secondary to VT 2003, one recurrent episode remotely since her AICD was implanted. Hyperlipidemia Hypertension Ischemic dilated cardiomyopathy ([facility]) EF was 27% on echo 08/01/03, improved to 50-55% on echo 02/18/15 Old TN (myocardial infarction) 1993 Osteoarthritis Pulmonary embolism ([facility]) S/P CABG x 3 1994 SVG>LAD, SVG>OM, SVG>RCA (she thought she had 4 grafts, which has been on her records for years, but only 3 vein grafts present on cath 12/27/17) Secondary pulmonary arterial hypertension ([facility]) mild, RVSP 40 mm Hg (echo 02/18/15) TB (tuberculosis) pulmonary, treated for "6 years" Tobacco abuse Ventricular tachycardia, paroxysmal ([facility]) 2003 with Syncope, + EPS for inducible VT - 08/14/03 PAST SURGICAL HISTORY Past Surgical History Procedure Laterality Date CARDIAC DEFIBRILLATOR PLACEMENT intial AICD 2003, generator change 03/27/11, [employer] Telogen E110, s# [id number]; R V Lead - Guidant 0184, s# [id number] (08/15/03); RA Lead - Guidant Fineline II EZ Sterox 4469, s # [id number] (08/15/03) CARDIAC DEFIBRILLATOR REMOVAL 03/27/2011 implanted 08/15/03, generator was at [facility] CORONARY ARTERY BYPASS GRAFT 1994 SVG>LAD, SVG>OM, SVG>RCA (she thought she had 4 grafts, which has been on her records for years, but only 3 vein grafts present on cath 12/27/17 KNEE ARTHROPLASTY Right KNEE JOINT MANIPULATION Bilateral PARTIAL HIP ARTHROPLASTY Right rist Right ALLERGIES No Known Allergies MEDICATIONS PRIOR TO ADMISSION Prescriptions Prior to Admission Medication Sig Dispense Refill Last Dose acetaminophen (TYLENOL) 325 MG tablet Take 325 mg by mouth every 6 (six) hours as neede d for Pain. Taking at Unknown time allopurinol (ZYLOPRIM) 100 MG tablet Take 100 mg by mouth daily. Taking at Unknown ti me aspirin 81 MG tablet Take 81 mg by mouth daily. Taking at Unknown time buPROPion (WELLBUTRIN) 100 MG tablet Take 100 mg by mouth daily. Taking at Unknown ti me Calcium Carb-Cholecalciferol (CALCIUM/VITAMIN D) 600-400 MG-UNIT TABS Take 1 tablet by mouth 2 (two) times daily. Taking at Unknown time cholecalciferol (VITAMIN D-3) 1000 UNITS tablet Take 1,000 Units by mouth daily. Edilson hunt at Unknown time cyanocobalamin (VITAMIN B-12) 100 MCG tablet Take 1,000 mcg by mouth daily. Taking at Unknown time escitalopram (LEXAPRO) 20 MG tablet Take 20 mg by mouth daily. Taking at Unknown time isosorbide dinitrate (ISORDIL) 30 MG tablet Take 30 mg by mouth daily. Taking at Unkn own time metoprolol (TOPROL-XL) 25 MG 24 hr tablet Take 25 mg by mouth daily. Taking at Unknow n time clopidogrel (PLAVIX) 75 MG tablet Take 1 tablet by mouth daily. 30 tablet 11 Taking furosemide (LASIX) 20 MG tablet Take 20 mg by mouth daily. Not Taking at Unknown time lisinopril (ZESTRIL) 5 MG tablet Take 1 tablet by mouth daily. (Patient not taking: Rep orted on 12/26/2017) 90 tablet 3 Not Taking nicotine (NICODERM CQ) 7 MG/24HR Place 1 patch onto the skin daily. Not Taking at Unk nown time potassium chloride (KLOR-CON) 20 MEQ packet Take 20 mEq by mouth daily. Not Taking at Unknown time SCHEDULED MEDICATIONS albuterol 5 mg Nebulization STAT - Now aspirin 81 mg Oral Daily with breakfast atorvastatin 40 mg Oral Nightly cholecalciferol 1,000 Units Oral Daily escitalopram 20 mg Oral Daily famotidine 20 mg Intravenous BID Or famotidine 20 mg Oral BID famotidine 20 mg Oral Once insulin lispro (human) 0-3 Units Subcutaneous Nightly insulin lispro (human) 0-6 Units Subcutaneous TID AC ipratropium-albuterol 1 puff Inhalation 4x Daily isosorbide dinitrate 30 mg Oral Daily lidocaine 10 mL Intradermal Once lisinopril 5 mg Oral Daily metoprolol 25 mg Oral Daily nicotine 1 patch Transdermal Q24H CONTINUOUS INFUSIONS dextrose heparin 50 units/mL Stopped (12/27/17 1717) sodium chloride (IV) 75 mL/hr at 12/27/17 0237 sodium chloride (IV) FAMILY HISTORY OF SIGNIFICANCE Family History Problem Relation Age of Onset Coronary Artery Disease Mother 60 [place] Alzheimer's disease Brother Diabetes Mellitus II Brother Thyroid disease Daughter SOCIAL HISTORY Social History Social History Marital status: Spouse name: N/A Number of children: N/A Years of education: N/A Occupational History 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 Social History Main Topics Smoking status: Heavy Tobacco Smoker Packs/day: 1.00 Years: 64.00 Types: Cigarettes Smokeless tobacco: Never Used Comment: cut down to 0.5 ppd several weeks ago Alcohol use No Drug use: No Sexual activity: No Other Topics Concern Not on file Social History Narrative No narrative on file PHYSICAL EXAM VITAL SIGNS Temp: [98.1 F (36.7 C)-100.7 F (38.2 C)] 100.7 F (38.2 C) Heart Rate: [66-93] 77 Resp: [10-25] 16 BP: (95-181)/(47-80) 149/69 Intake/Output Summary (Last 24 hours) at 12/27/17 1114 Last data filed at 12/26/17 204 Gross per 24 hour Intake 0 ml Output 240 ml Net -240 ml EXAM GEN: lethargic but attempts to follow commands. Moderate distress NEURO: PERRLA, EOMI, no facial asymmetry, moving all extremities, following commands slowly GCS: 11 (E3V2M6) HEENT: sclerae clear, nonicteric, oral mmm, pink, no exudates NECK: supple, trachea midline CV: RRR, S1/S2, no murmur, rub or gallop, peripheral pulses palpable, cap refill brisk LUNGS: coarse b/l, with expiratory wheezing, poor air movement, symmetric chest expansion, labored respirations ABD: soft, obese, nontender to palpation, EXTR: no edema, clubbing or cyanosis. R groin site soft, no hematoma or oozing. SKIN: warm, dry, no rash or mottling; no e/o skin breakdown over the occiput, scapulae, elb ows, sacrum or heels LINES/TUBES: PIV DATA Recent Labs Lab 12/27/17 0458 WBC 8.72 RBC 3.68* HGB 12.8 HCT 37.2 MCV 101.0* MCH 34.7* MCHC 34.3 RDW 52.1 PLT 143* MPV 8.5 NEUTROABS 6.53 LYMPHSABS 1.34 MONOSABS 0.62 BASOSABS 0.07 EOSABS 0.16 Recent Labs Lab 12/27/17 0458 NA 139 K 4.9 CL 104 CO2 27 ANIONGAP 13 GLUF 156* BUN 16 CREATININE 1.1* BCR 15 CA 8.4* ALB 2.8* GLOB 3.5 AG 0.8* PROT 6.3 BILITOT 0.5 ALT 43 AST 135* EGFR 48* PHOS 4.5 MG 2.1 Recent Labs Lab 12/26/17 1645 INR 1.0 IMAGING X-ray Chest 1 View Result Date: 12/27/2017 Cardiomegaly. Bilateral pulmonary vascular congestion and pulmonary edema. Electronically s igned by Claude Owen MD on 12/27/2017 11:28 AM X-ray Chest 1 View Result Date: 12/26/2017 1. Median sternotomy with prominent cardiac enlargement and sequential pacer. 2. Suspecte d CHF with interstitial edema, perhaps with subtle left effusion. LEM LIST Principal Problem: Unstable angina pectoris (HCC) Active Problems: S/P CABG x 4 Ischemic dilated cardiomyopathy (HCC) Cardiac defibrillator in situ Hypertension Morbid obesity (HCC) Tobacco use disorder Acute metabolic encephalopathy Acute respiratory failure with hypoxia and hypercapnia (HCC) Pulmonary edema cardiac cause (HCC) Resolved Problems: * No resolved hospital problems. * ASSESSMENT & PLAN NEURO: Acute metabolic encephalopathy - likely related to sedating medication, increased pulmon rhonda edema, and respiratory failure with hypercarbia. Cont to tx underlying cause. CAM-ICU mo nitoring CV: NSTEMI with underlying CAD s/p 2-KERA placement to SVG to OM3 by Dr. Morris 12/27. On ASA , atorvastatin, clopidogrel, lisinopril and metoprolol. Medical management per cardiology. Ischemic dilated cardiomyopathy - will need to repeat echo. Last echo in 2014 with LVEF 55%. Will defer to cardiology. On ACEI, resume furosemide. Hx of paroxysmal v-tach with subsequent AICD placement in 2003, generator change 2010. PULM: Acute hypoxic and hypercarbic respiratory failure. Likely due to pulmonary edema combine d with sedation. Will diurese, continue BiPAP. May require intubation if she does not improv e. Repeat ABG this afternoon. Acute pulmonary edema - patient did not receive diuretic this AM in anticipation of proc edure, and received additional IVF during procedure. Will give diuretic, monitor UOP closely . Current smoker - program counselor regarding smoking cessation GI/NUTRITION: NPO for now until she can safely swallow. RENAL/LYTES: Renally dose medications, avoid nephrotoxins. Monitor electrolytes and replace per protocol Follow I/O ID: No evidence of infection. Patient is afebrile with normal WBC. HEME: Monitor CBC/coags ENDO: No hx of DM. A1c 6.3. On SSI for blood sugar control, likely pre-diabetic. MUSC/SKIN: Turn and assess skin per protocol R femoral sheath site checks per cardiology PROPHYLAXIS: Stress ulcer prophylaxis: pepcid DVT prophylaxis: SCDs, enoxaparin VAP: chlorhexidine oral care and HOB > 30 degrees Disposition: ICU as above. Discussed with Dr. Morris. Code Status: Full Code Primary Care Physician: Roxana Barajas Thank you for this consult. I will continue to follow with you. *Please bill 75 minutes of critical care time spent evaluating the patient, reviewing the d mago and formulating a plan exclusive of all other procedures. NASRA Fontanez 12/27/2017 Nash Zapien MD - 12/26/2017 5:02 PM PDT Consult* by Nash Genao MD at 12/26/171701 Author: Nash Genao MD Service: Cardiology Author Type: Physician Filed: 12/27/17916 Date of Service: 12/26/171701 Status: Addendum Siphoner: Nash Genao MD (Physician) Related Notes: Original Note by Nash Genao MD (Physician) filed at 12/27/17916 [facility] Service: Cardiology Initial Consult Note Date of Admission: 12/26/2017 Reason for Consultation: Chest pain/pressure Requesting Physician: Pasha Buck MD History Obtained From: patient ,along with an extensive review of her records in her [facility] chart CHIEF COMPLAINT: Chest pain/pressure HISTORY OF PRESENT ILLNESS The patient is a 77 y.o. female usually followed by Tres Beltran MD (last s een 10/06/16). She clearly has memory problems, and is unable to give some information. She was in her usual state of health until about 8:30 this morning. She was joining her sister for a Wednesday gathering, when she had the sudden onset of mid retrosternal pressure, "like s omeone was smashing my chest to the back". It radiated to the back and somewhat to the left arm. Subjectively, she rated it "9" on a 1-10 scale in intensity, to the point where it wa s "knocking the flat ". There was associated dyspnea, nausea, and belching which gave her s light relief. There was also profuse diaphoresis. She was taken via ambulance to the emerg ency room at [facility], arrived approximately 1 hour after onset of symptoms by h er account, where her chest discomfort was relieved with 2 sublingual nitroglycerin and 3 mg of morphine. She has had no recurrent symptoms. Her initial troponin there was 0.059, but it is now 1.84, ruling her in for an acute NSTEMI. Her EKG shows no ST elevation or signif icant ST-T abnormalities. She is currently angina free, hemodynamically stable, Killip clas s I. She has been started on heparin, and was already on aspirin, Plavix, metoprolol, isoso rbide mononitrate and lisinopril, but I note that she has not been on statin therapy. REVIEW OF SYSTEMS CONSTITUTIONAL: No recent significant weight change, denies recent fever, had chills 3 wee ks ago, has night sweats, c/o significant fatigue NEUROLOGIC: No history of CVA, TIA, feels that all her "knowledge, sightings of the past a re being drained", short term memory deficits, is concerned she has Dementia. She denies mi graines, seizures, had syncope 2003 due to VT, one other remote episode since her first AICD was implanted. She appears to have frequent benign positional Vertigo, lying down, no dizz iness, lightheadedness sitting or standing. She has intermittent numbness of her fingertips, tingling, paresthesias. EYES: No amaurosis, diplopia, recent visual changes, cataracts or glaucoma ENT: She has bilateral hearing loss, left > right, has tinnitus, denies epistaxis, has Dys phagia, frequent coughing, choking with eating ENDOCRINE: She has a history of diet-controlled Type II Diabetes mellitus, on no medicatio ns. No history of thyroid disorders or other endocrine problems. No excessive hunger, notes a dry mouth and is "always thirsty". PULMONARY/SLEEP: She c/o Dyspnea with exertion, walking 10 yards, has Orthopnea, no paroxy smal nocturnal dyspnea. She has a history of COPD, Chronic Bronchitis, Asthma, Emphysema. S he had Pulmonary TB in childhood. She had Pneumonia in 2011, a PE in the past, was on warfa rin for a long time. Her used to tell her of snoring, has daytime somnolence. Sleep is usually refreshing. CARDIOVASCULAR: c/o chest pain, pressure, as above. She has a history of CAD, with an TN in 1993, "almost the exact same thing" as today's symptoms, 3-vessel CABG 01/1995 with a pos sible inferior aneurysmectomy - SVG>LAD, SVG>OM, SVG>RCA (she thought she had 4 grafts, bharati isabel has been on her records for years, but only 3 vein grafts present on cath 12/27/17). She h ad a dilated Ischemic Cardiomyopathy, EF 27% in 2003, which has improved. She has a prior hi story of heart failure. She has a history of nonsustained VT, inducible on EPS (08/14/03 - th ere was normal function of the SA node, AV node and His-Purkinje system). She had an AICD i mplanted. No palpitations, but feels she has a "skip" in her pulse when she checks it after swimming. 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 She has Es sential Hypertension, Hyperlipidemia. She has Pedal Edema, no clear claudication symptoms ( has "shinbone" and "thigh" pains when she walks > 2 blocks). No h/o an AAA. GASTROINTESTINAL: No recent abdominal pain, nausea (except this AM with her chest pressure ), vomiting or diarrhea. Denies PUD, melena, hematochezia, hepatitis. RENAL/: No history of kidney disease. No dysuria, hematuria, urinary urgency, hesitancy . She has urinary incontinence. No Attorney Recruiter disorders. HEMATOLOGY/ONCOLOGY: No h/o bleeding disorders, denies DVT, but had a PE many years ago. She notes easy bruisability and bleeding. No history of anemia, transfusions. No history o f cancer. MUSCULOSKELETAL: No myalgias, has Osteoarthritis with knee and hip arthralgias. No histor y of rheumatologic or autoimmune diseases. CUTANEOUS: No rashes, pruritus, lesions. PSYCHIATRIC: No history of depression, has Anxiety with Panic Attacks, no other psychiatri c problems. Past Medical History Diagnosis Date Anxiety With panic attacks Asthma Cardiac defibrillator in situ 08/15/2003 intial AICD 2003, generator change 03/27/11, [employer] Telogen E110, s# [id number]; R V Lead - Guidant 0184, s# [id number] (08/15/03); RA Lead - Guidant Fineline II EZ Sterox 4469, s # [id number] (08/15/03) CHF (congestive heart failure) ([facility]) chronic systolic heart failure, EF was 27% in the past, improved to 50-55% on echo 02/18/15 Community acquired pneumonia 2011 COPD (chronic obstructive pulmonary disease) ([facility]) h/o chronic bronchitis, long h/o tobacco abuse Coronary artery disease involving [place] coronary artery multi-vessel Diabetes mellitus type 2 in obese ([facility]) diet controlled History of syncope 2003 secondary to VT 2003, one recurrent episode remotely since her AICD was implanted. Hyperlipidemia Hypertension Ischemic dilated cardiomyopathy (HCC) EF was 27% on echo 08/01/03, improved to 50-55% on echo 02/18/15 Old [place] (myocardial infarction) 1993 Osteoarthritis Pulmonary embolism (HCC) S/P CABG x 3 1994 SVG>LAD, SVG>OM, SVG>RCA (she thought she had 4 grafts, which has been on her records for years, but only 3 vein grafts present on cath 12/27/17) Secondary pulmonary arterial hypertension (HCC) mild, RVSP 40 mm Hg (echo 02/18/15) TB (tuberculosis) pulmonary, treated for "6 years" Tobacco abuse Ventricular tachycardia, paroxysmal (HCC) 2003 with Syncope, + EPS for inducible VT - 08/14/03 Past Surgical History Procedure Laterality Date CARDIAC DEFIBRILLATOR PLACEMENT intial AICD 2003, generator change 03/27/11, [employer] Telogen E110, s# [id number]; R V Lead - Guidant 0184, s# [id number] (08/15/03); RA Lead - Guidant Fineline II EZ Sterox 4469, s # [id number] (08/15/03) CARDIAC DEFIBRILLATOR REMOVAL 03/27/2011 implanted 08/15/03, generator [facility] at [facility] CORONARY ARTERY BYPASS GRAFT 1994 SVG>LAD, SVG>OM, SVG>RCA (she thought she had 4 grafts, which has been on her records for years, but only 3 vein grafts present on cath 12/27/17 KNEE ARTHROPLASTY Right KNEE JOINT MANIPULATION Bilateral PARTIAL HIP ARTHROPLASTY Right rist Right No Known Allergies Prescriptions Prior to Admission Medication Sig Dispense Refill Last Dose acetaminophen (TYLENOL) 325 MG tablet Take 325 mg by mouth every 6 (six) hours as neede d for Pain. Taking at Unknown time allopurinol (ZYLOPRIM) 100 MG tablet Take 100 mg by mouth daily. Taking at Unknown ti me aspirin 81 MG tablet Take 81 mg by mouth daily. Taking at Unknown time buPROPion (WELLBUTRIN) 100 MG tablet Take 100 mg by mouth daily. Taking at Unknown ti me Calcium Carb-Cholecalciferol (CALCIUM/VITAMIN D) 600-400 MG-UNIT TABS Take 1 tablet by mouth 2 (two) times daily. Taking at Unknown time cholecalciferol (VITAMIN D-3) 1000 UNITS tablet Take 1,000 Units by mouth daily. Taki ng at Unknown time cyanocobalamin (VITAMIN B-12) 100 MCG tablet Take 1,000 mcg by mouth daily. Taking at Unknown time escitalopram (LEXAPRO) 20 MG tablet Take 20 mg by mouth daily. Taking at Unknown time isosorbide dinitrate (ISORDIL) 30 MG tablet Take 30 mg by mouth daily. Taking at Unkn own time metoprolol (TOPROL-XL) 25 MG 24 hr tablet Take 25 mg by mouth daily. Taking at Unknow n time clopidogrel (PLAVIX) 75 MG tablet Take 1 tablet by mouth daily. 30 tablet 11 Taking furosemide (LASIX) 20 MG tablet Take 20 mg by mouth daily. Not Taking at Unknown time lisinopril (ZESTRIL) 5 MG tablet Take 1 tablet by mouth daily. (Patient not taking: Rep orted on 12/26/2017) 90 tablet 3 Not Taking nicotine (NICODERM CQ) 7 MG/24HR Place 1 patch onto the skin daily. Not Taking at Unk nown time potassium chloride (KLOR-CON) 20 MEQ packet Take 20 mEq by mouth daily. Not Taking at Unknown time Scheduled Medications aspirin 81 mg Oral Daily with breakfast atorvastatin 40 mg Oral Nightly cholecalciferol 1,000 Units Oral Daily escitalopram 20 mg Oral Daily famotidine 20 mg Intravenous BID Or famotidine 20 mg Oral BID famotidine 20 mg Oral Once insulin lispro (human) 0-3 Units Subcutaneous Nightly insulin lispro (human) 0-6 Units Subcutaneous TID AC ipratropium-albuterol 1 puff Inhalation 4x Daily isosorbide dinitrate 30 mg Oral Daily lidocaine 10 mL Intradermal Once lisinopril 5 mg Oral Daily metoprolol 25 mg Oral Daily nicotine 1 patch Transdermal Q24H Continuous Infusions dextrose heparin 50 units/mL Stopped (12/27/17 0817) sodium chloride (IV) 75 mL/hr at 12/27/17 0447 sodium chloride (IV) PRN Medications acetaminophen OR acetaminophen, dextrose, dextrose, dextrose, fentaNYL, fentaNYL, gluca steve, glucagon, heparin (porcine), heparin (porcine) 5000 unit/0.5mL, heparin (porcine) 5000 unit/0.5mL, lidocaine, midazolam, midazolam, morphine OR morphine OR morphine, nitro GLYCERIN, ondansetron OR ondansetron, polyethylene glycol, zolpidem Family History Problem Relation Age of Onset Coronary Artery Disease Mother 60 [place] Alzheimer's disease Brother Diabetes Mellitus II Brother Thyroid disease Daughter History Smoking Status Heavy Tobacco Smoker Packs/day: 1.00 Years: 64.00 Types: Cigarettes Smokeless Tobacco Never Used Comment: cut down to 0.5 ppd several weeks ago History Alcohol Use No History Drug Use No PHYSICAL EXAM Vital Signs: BP 155/63 | Pulse 75 | Temp 100.7 F (38.2 C) (Oral) | Resp 11 | Ht 1.575 m (5' 2") | Wt 100.2 kg (220 lb 14.4 oz) | SpO2 98% | ? No | BMI 40.40 kg/m Temp: [98.1 F (36.7 C)-100.7 F (38.2 C)] 100.7 F (38.2 C) (12/28 343) BP: (95-168)/(51-74) 155/63 (12/27 914) Heart Rate: [67-93] 75 (12/27 914) Resp: [10-24] 11 (12/27 914) SpO2: [91 %-99 %] 98 % (12/27 914) Height: [157.5 cm (5' 2")] 157.5 cm (5' 2") (12/26 1558) Weight: [100.2 kg (220 lb 14.4 oz)] 100.2 kg (220 lb 14.4 oz) (12/26 1558) BMI (Calculated): [40.5] 40.5 (12/26 1558) GENERAL: Short statured, mildly obese, well developed, well nourished elderly [employer] can woman, in no distress. Appears approximately stated age. HEENT: Normocephalic, atraumatic. EYES: PERRL, sclerae anicteric, no xanthelsasmas. She has bilateral arcus senilis MOUTH: Oral mucosae moist, edentulous, tongue erythema, no lesions noted NECK: No JVD, lymphadenopathy, thyromegaly, bruits. Carotid pulses are 2+ bilaterally LUNGS: Mildly, diffusely decreased and coarse breath sounds bilaterally, with no rales, rh onchi, with mild scattered wheezing noted, respirations unlabored HEART: Well-healed sternotomy incision. Her left AICD pocket appears normal. Nondisplace d PMI, regular rate and rhythm, S1, S2 normal. No murmurs, rubs or gallops noted. ABDOMEN: Soft, nontender, no organomegaly, masses or bruits. Bowel sounds are normal in a ll 4 quadrants. The abdominal aortic pulsation is not palpable. EXTREMITIES: No edema. Radial pulses 2+ bilaterally. Femoral pulses are 2+ bilaterally wi thout bruits. DP and PT pulses are 2+ bilaterally. Well-healed bilateral venous harvest in cisions in the lower medial legs, well-healed right knee incision. SKIN: Warm and dry, capillary refill is normal, no lesions. NEUROLOGIC: Awake, alert and oriented x 3. No focal motor deficits. Memory is deficient. PSYCHIATRIC: Appropriate, affect appears normal DATA Last 3 Troponin: Lab Results Component Value Date TROPONINI 29.9 (HH) 12/27/2017 TROPONINI 20.7 () 12/26/2017 TROPONINI 1.84 () 12/26/2017 From [facility]: WBC 9.3, hemoglobin 13.8, hematocrit 40.8, platelets 156 Sodium 140, potassium 4.0, chloride 107, carbon dioxide 27, glucose 181, BUN 15, creatini ne 0.93, estimated GFR 58, AST 17, ALT 11 BNP 110 EKG: Possible ectopic atrial rhythm, right bundle branch block, possible old anterior and i nferior infarcts, low voltage in standard limb leads and left precordial leads, mild, nonspe cific ST-T abnormalities. In comparison to previous tracing from 02/18/15, there is decrease d voltage, particularly in the inferior leads, and new Q waves in V3-V5 PROBLEM LIST Principal Problem: Unstable angina pectoris (HCC) Active Problems: S/P CABG x 4 Ischemic dilated cardiomyopathy (HCC) Cardiac defibrillator in situ Hypertension Morbid obesity ([facility]) Tobacco use disorder ASSESSMENT & PLAN 1. Acute NSTEMI in this patient with known multivessel corner artery disease, remote 4 vess el CABG. There is no report available. She will undergo diagnostic cardiac catheterization tomorrow to evaluate her coronary and graft anatomy, and if indicated by the results, will undergo percutaneous coronary intervention. Diagnostic Cardiac Catheterization via femoral or radial artery approach: the procedure, with its associated alternatives, benefits, and r isks, the latter including but not limited to possible need for more than one vascular acces s site, , [place], CVA, bleeding (including the need for blood transfusion), vascular damage (including the need for emergent surgical repair, including PCI/stent placement or CABG), r enal failure (including the possible need for short or long-term use of hemodialysis), aller gic reactions/anaphylaxis, and the risks of moderate anesthesia/sedation, were discussed in detail. No guarantees were given. All questions were answered. The patient verbalized und erstanding and gave informed consent for the procedure. 2. H/o old TN, dilated ischemic cardiomyopathy, EF at one time as low as 27%, improved to 5 0-55% when last checked on an echocardiogram 3 years ago. This will be updated. 3. History of syncope due to ventricular tachycardia, when her ejection fraction was lower . She has an AICD which has never shocked her, followed through our device clinic. Last anayeli, 09/07/17 showed only a single episode of nonsustained ventricular tachycardia, up to 8 s econds in duration, 4.5 years of estimated battery longevity remaining. Sensing and pacing thresholds, lead impedances were normal. 4. COPD, with apparent combined asthma, chronic bronchitis and emphysema. She is still sm oking, but has cut back to half a pack per day recently. NicoDerm patches were prescribed. I will also start her on Combivent due to the active wheezing noted on exam today. 5. Remote history of pulmonary embolism, she does not recall when this was. She was treat ed with Coumadin for at least several years, from what I can gather, but is no longer taking it. 6. Essential hypertension, currently mildly hypotensive 7. History of hyperlipidemia, not on statin therapy prior to admission. Atorvastatin 40 m g daily will be started. 8. Diet controlled type II diabetes mellitus. A hemoglobin A1c will be checked in the [facility] emergency department. 9. History of anxiety with panic attacks, on Lexapro and Wellbutrin. 10. Memory loss, with a family history of Alzheimer's dementia. This should be evaluated on an outpatient basis. 11. Dysphagia, with frequent coughing and choking while eating. A swallow evaluation is i ndicated. Code Status: Full Code Primary Care Physician: Roxana Barajas Thank you for allowing me to participate in the care of this patient. Nash eGnao MD 12/27/2017 9:16 AM documented in this e ncounter Miscellaneous Notes Plan of Care - Francesco Edmonds MD - 12/31/2017 9:11 AM PDTFormatting of this note might b e different from the original. Plan of Care by Francesco Edmonds MD at 12/31/17910 Author: Francesco Edmonds MD Service: Hospitalist Author Type: Physician Filed: 12/31/17911 Date of Service: 12/31/17910 Status: Signed Siphoner: Francesco Edmonds MD (Physician) Patient qualifies for home oxygen. She will require this for her CHF, NSTEMI. lan of Care - Conve rsion Transaction, Provider Unknown - 12/31/2017 5:06 AM PDTFormatting of this note might b e different from the original. Plan of Care by Aishwarya Marr RN at 12/31/17 0506 Author: Aishwarya Marr RN Service: (none) Author Type: Registered Nurse Filed: 12/31/17 0507 Date of Service: 12/31/17505 Status: Signed Siphoner: Aishwarya Marr RN (Registered Nurse) Pain Patient's pain/discomfort is manageable Progressing Pt states pain is manageable this shift. lan o f Care - Conversion Transaction, Provider Unknown - 12/30/2017 4:04 PM PDTFormatting of thi s note might be different from the original. Plan of Care by Pamela Wagner RN at 12/30/17 160 Author: Pamela Wagner RN Service: (none) Author Type: Registered Nurse Filed: 12/30/171603 Date of Service: 12/30/171603 Status: Signed Siphoner: Pamela Wagner RN (Registered Nurse) Problem: Pain Goal: Patient's pain/discomfort is manageable Assess and monitor patient's pain using appropriate pain scale. Collaborate with interdisci plinary team and initiate plan and interventions as ordered. Re-assess patient's pain level approximately 1-2 hours after pain management intervention. Premedicate as needed. Outcome: Progressing Patient denies pain, daily cares met at this time, hourly rounding uneventful, assistance o ffered PRN, WCM. lan o f Care - Conversion Transaction, Provider Unknown - 12/29/2017 9:21 PM PDTFormatting of thi s note might be different from the original. Plan of Care by Merlene Vieira RN at 12/29/172120 Author: Merlene Vieira RN Service: (none) Author Type: Registered Nurse Filed: 12/29/172120 Date of Service: 12/29/172120 Status: Signed Siphoner: Merlene Vieira RN (Registered Nurse) Problem: Pain Goal: Patient's pain/discomfort is manageable Assess and monitor patient's pain using appropriate pain scale. Collaborate with interdisci plinary team and initiate plan and interventions as ordered. Re-assess patient's pain level approximately 1-2 hours after pain management intervention. Premedicate as needed. Outcome: Progressing Pt has no c/o pain at this time. iscruiz coy - Conversion Transaction, Provider Unknown - 12/29/2017 3:10 PM PDTFormatting of th is note might be different from the original. Treatment Plan by Parmjit Hernandez, PT at 12/29/17 151 Author: Parmjit Hernandez PT Service: (none) Author Type: Physical Therapist Filed: 12/29/171510 Date of Service: 12/29/171509 Status: Signed Siphoner: Parmjit Hernandez PT (Physical Therapist) PHYSICAL THERAPY EVALUATION PT Received On: 12/29/17 Reason for Treatment: Deconditioning Requires PT Follow Up: Awaiting tx order Follow up PT Only?: No PT Eval/Reassessment Date: 12/29/17 Assistance Required: 1 person Airbrush Artist Technical Needed: No Recommendations: Home Assist, PT Barriers to Discharge: Physical Deficits Impacting Functional [place] Recommendation Comments: Patient demonstrates fair functional strength, but limited activit y tolerance. She has good family support that resides with her at home, as well as a caregiv er for 4 hours/day. She does not do much community ambulation. Anticipate she may benefit [facility] PT services to promote functional strength and activity tolerance to facilitate indepe ndence and safety. Plan Treatment/Interventions: Assist d/c plannning, Balance training, Therapeutic exercise, Cantrell sfer training, Gait training, Bed mobility training PT Frequency: 3-5x/wk Care Duration (# of days): 7 # of days Summary Comments: Chart reviewed, evaluation completed. Pt admitted with NSTEMI; she is now s/p kameron nting to LAD. She is in bed upon PT arrival; agreeable to participation. She denies any pain throughout. She requests to use the bathroom during session, able to mobilize into BR in [facility]. She does benefit from light steadying assist for all transfers at this time, and CGA for safety with short/household distance gait. She reported 1 instance of dizziness after stand ing up. She completed 4 bouts of short distance gait this session with rest reqired between each due to fatigue (denies dyspnea and no desaturation). She will need 24/7 assist for home return, which it appears she has via family and caregiver. Pt in bed after activity, no new complaints. Vitals at rest in supine: HR 73, BP 103/59, SpO2 92% w/ 2L. BP in sitting afte r getting dizzy: 105/59. Vitals in supine after activity: HR 78, BP 110/57, SpO2 92% w/ 2L ( NC). Precautions Other Precautions: Fall Risk; Monitor SpO2 Cognition Orientation Level: Oriented Comments: Please and cooperative; follows instructions appropriately; able to provide a carmen r history but not able to provide all specifics. Assessment of Patient Status Assessment of Patient Status: Decreased functional mobility, Decreased ADL status, Decreas ed endurance Prognosis: Should progress with skilled therapy intervention Home Environment Type of Home: Home one story Home Exterior Layout: Entry steps none Home Interior Layout: Lives on main level with bedroom/bathroom Bathroom Shower/Tub: Tub/shower unit Bathroom Toilet: Standard Bathroom Equipment: Shower chair, Grab bars in shower/bath Bathroom Accessibility: Not accessible (Uses countertop) Home Equipment: Walker 4 wheeled Prior Function Level of B[place]: Modified independent with functional mobility, Assist with ADLs, Ass ist with IADLs Falls in Past Year: No Lives With: Adult child(reagan), Caregiver (Caregiver 4 hours/day) RLE Assessment: Exceptions to WFL (Hx of LORIE Tkas; functional weakness is noted ) LLE Assessment: Exceptions to WFL FUNCTIONAL MOBILITY Bed Mobility Rolling: Standby assist Supine to Sit: Min assist (1 LE OOB) Sit to Supine: Standby assist Transfers Sit to/from Stand: Minimal assist (steadying/contact guard), Verbal instruction Ambulation Maximal Ambulation Distance (feet): 15x3, 40 Total Ambulation Distance (feet): 85 ft Ambulation Assistance: Minimal assist, Standby assist Distance limited by?: Patient's ability Pattern: Decreased kelly, Right swing foot doesn't pass stance foot, Left swing foot does n't pass stance foot, Forward flexed Assistive Device: Walker 4 wheeled, Walker front wheeled Activity Tolerance: Patient limited by fatigue Nurse Made Aware: ONUR Raymundo Safety Devices in Place: (Call light; needs met) Restraints Initially in Place: No The patient demonstrated no indication of pain during therapy session. Education Completed: Education Topics: [x] Rationale for PT [x] PT POC [x] DC planning [x] Precautions [] Exercises [] Bed mobility [x] Transfer training with hand placement [x] Gait training [] Stair training [] Use of gait belt [x] Other: Safe 4WW management Completed with: [x] Patient [] Spouse [] Significant other [] Family [] C aregiver [] Other Completed by: [x] Verbal education [x] Demonstration [] Handout [] Other: Response to Education: [x] Stated Understanding [] Reinforcement necessary [x] Returned demonstration [] Demonstrated understanding [] No evidence of learning [] Refused Physical Therapy Goals PT Goals Pt Will Go Supine To Sit: With supervision Pt Will Go Sit To Supine: With supervision Pt Will Transfer Sit to Stand: With supervision Pt Will Ambulate: 101-149 feet Ambulate Level Assist: With supervision Ambulate with Assistive Device: Least restricitve device Low - 13495 Moderate - 04828 High - 14174 History [] no personal factors &/or comorbidities [x] 1-2 personal factors &/or comorbidit ies [] 3 or more personal factors &/or comorbidities Examination [] 1-2 elements [x] 3 elements [] 4 or more elements Clinical Presentation [x] stable [] evolving [] unstable Clinical Decision Making Complexity: [x] Low 74380 [] Moderate 87621 [] High 9 7163 lan o f Care - Conversion Transaction, Provider Unknown - 12/28/2017 11:03 PM PDTFormatting of thi s note might be different from the original. Plan of Care by Merlene Vieira RN at 12/28/172302 Author: Merlene Vieira RN Service: (none) Author Type: Registered Nurse Filed: 12/28/172302 Date of Service: 12/28/172302 Status: Signed Siphoner: Merlene Vieira RN (Registered Nurse) Problem: Pain Goal: Patient's pain/discomfort is manageable Assess and monitor patient's pain using appropriate pain scale. Collaborate with interdisci plinary team and initiate plan and interventions as ordered. Re-assess patient's pain level approximately 1-2 hours after pain management intervention. Premedicate as needed. Outcome: Progressing Pt has had no c/o pain so far this shift. Will continue to monitor and medicate PRN. lan o f Care - Francesco Edmonds MD - 12/28/2017 5:31 PM PDTFormatting of this note might be diffe rent from the original. Plan of Care by Francesco Edmonds MD at 12/28/17 173 Author: Francesco Edmonds MD Service: Hospitalist Author Type: Physician Filed: 12/28/171732 Date of Service: 12/28/171730 Status: Signed Siphoner: Francesco Edmonds MD (Physician) Received sign out from ICU for transfer of patient to hospitalist service. Patient underwent cardiac cath for NSTEMI with 2 KERA placed on 12/27 and developed decreased level of conciousness afterwards and was transferred to ICU at the time. She most likely granda d fluid overload and has improved with diuresis. Cardiology is following. Continue management as outlined in ICU note for today. lan of Care - Sandrita Fournier ARNP - 12/28/2017 11:43 AM PDT Plan of Care by NASRA Fontanez at 12/28/17 1141 Author: NASRA Fontanez Service: [employer] Author Type: Advanced Registered Nu rse Practitioner Filed: 12/28/17 1144 Date of Service: 12/28/17 114 Status: Signed Siphoner: NASRA Fontanez (Advanced Registered Nurse Practitioner) Patient examined for transfer to medical floor. Hemodynamically stable, maintaining airway on 2L NC. No further episodes of SOB or wheezing. Pt is having intermittent chest pain, EKG obtained during episodes of pain which does not show ST elevation. RN to notify Dr. Morris. Report called to Dr. Edmonds who has graciously accepted this patient to the hospitalist [facility]. Orders placed for transfer. lan of Care - C onversion Transaction, Provider Unknown - 12/28/2017 10:25 AM PDTFormatting of this note yimi ht be different from the original. Plan of Care by Leticia Dozier RN at 12/28/17 1025 Author: Leticia Dozier RN Service: (none) Author Type: Registered Nurse Filed: 12/28/17 1025 Date of Service: 12/28/17 1025 Status: Signed Siphoner: Leticia Dozier RN (Registered Nurse) Activity Intolerance/Impaired Mobility Mobility/activity is maintained at optimum level for patient Progressing Hemodynamic Status Patient's vitals signs are stable Progressing Knowledge Deficit Patient/family/caregiver demonstrates understanding of disease process, treatment plan, medications, and discharge instructions Progressing Nutrition Nutritional status is improving Progressing Pain Patient's pain/discomfort is manageable Progressing p Not e - Yvette Morris MD - 12/27/2017 11:08 AM PDTFormatting of this note might be different fr om the original. Brief Op Note by Yvette Morris MD at 12/27/17 1108 Author: Yvette Morris MD Service: Cardiology Author Type: Physician Filed: 12/27/17 1112 Date of Service: 12/27/17 1108 Status: Signed Siphoner: Yvette Morris MD (Physician) History and Risk Factors: - essential hypertension, without renal disease, with hypertensive heart disease (with hear t failure) - chronic systolic CHF - CAD of autologous bypass graft with unstable angina - past TN, occured over 28 days prior to admission - a smoker - prior CABG - hyperlipidemia, mixed hyperlipidemia - chronic lung disease (COPD) - diabetes (type 2 controlled (Hgb A1C < 6.5) without complications, not using insulin,) - hemoglobin: 12.8 g/dL - serum creatinine: 1.1 mg/dL Clinical Evaluation: CAD presentation: NSTEMI (within last 7 days) DYLAN Score: 5 (>65 years old, >3 risk factors, >1 angina episodes in last 24 hrs Use of asp rin in last 7 days, Positive biomarkers) CCS angina class (last 2 weeks): Class IV NYHA Heart Failure Class (last 2 weeks): None Cardiogenic Shock within 24 hours: No Cardiac Arrest within 24 hours: No Procedural Details: IABP: No PCI Status: Urgent LVEF: >=50 Cardiogenic Shock at Start of PCI: No Primary Arterial Access: Femoral Multivessel CAD: Yes Number of Lesions: 1 Lesion 1: SVG to OM3 Pre: 90% Post: 0% CHARCOAL UNLOADER: No DYLAN: Pre - 3; Post - 3 Complexity: C - degenerated vein grafts with friable lesions Thrombus: No Bifurcation: No Dissection: No Perforation: No Stent: S. 3.5x16 & 3.5x16 Stent Use: KERA only with diameter >3 mm and length <30 mm Frailty score 5 lan of Care - Convers ion Transaction, Provider Unknown - 12/26/2017 8:30 PM PDT Plan of Care by Demian Ling RN at 12/26/172029 Author: Demian Ling RN Service: (none) Author Type: Registered Nurse Filed: 12/26/172030 Date of Service: 12/26/172029 Status: Signed Siphoner: Demian Ling RN (Registered Nurse) Problem: Pain Goal: Patient's pain/discomfort is manageable Assess and monitor patient's pain using appropriate pain scale. Collaborate with interdisci plinary team and initiate plan and interventions as ordered. Re-assess patient's pain level approximately 1-2 hours after pain management intervention. Premedicate as needed. Outcome: Progressing Denies pain at this time. Call light within reach, makes needs known. lan o f Care - Conversion Transaction, Provider Unknown - 12/26/2017 4:16 PM PDTFormatting of thi s note might be different from the original. Plan of Care by Lilliana Westbrook RN at 12/26/171615 Author: Lilliana Westbrook RN Service: (none) Author Type: Registered Nurse Filed: 12/26/171615 Date of Service: 12/26/171615 Status: Signed Siphoner: Lilliana Pietro, RN (Registered Nurse) Problem: Knowledge Deficit Goal: Patient/family/caregiver demonstrates understanding of disease process, treatment ryan n, medications, and discharge instructions Complete learning assessment and assess knowledge base. Outcome: Progressing Pt updated on plan of care by MD at bedside. Problem: Hemodynamic Status Goal: Patient's vitals signs are stable Assess and monitor patient's heart rate, rhythm, respiratory rate, peripheral pulses, capil guille refill, color, body temperature, intake and output, labs and physical activity toleranc e. Observe for signs of chest pain (note location, duration, severity, radiation and assoc iated symptoms such as diaphoresis, nausea, indigestion). Monitor for signs and symptoms of heart failure (eg. shortness of breath, edema of feet/ankles/legs, rapid irregular heart ra te, coughing, wheezing, white/pink blood tinged sputum, sudden weight gain, chest pain). Col laborate with interdisciplinary team and initiate plan and interventions as ordered. Outcome: Progressing VSS upon arrival to unit. Problem: Pain Goal: Patient's pain/discomfort is manageable Assess and monitor patient's pain using appropriate pain scale. Collaborate with interdisci plinary team and initiate plan and interventions as ordered. Re-assess patient's pain level approximately 1-2 hours after pain management intervention. Premedicate as needed. Outcome: Progressing Pt not reporting pain at this time. docume nted in this encounter Plan of Treatment +--------+ [...] [facility] | | | | | | [place] [address] | | | | | | [phone] | | | | | | | | +--------+ + + + + | 07/22/ | Procedure | Cardiology | | | | 2020 | visit | | | | +--------+ + + + + documented as of this encounter Procedures + +--------+ + + + | Procedure Name | Priori | Date/Time | Associated Diagnosis | Comments | | | ty | | | | + +--------+ + + + | POC GLUCOSE | Routin | 12/31/2017 | | Results for this | | | e | 3:56 PM | | procedure are in the | | | | PDT | | results section. | + +--------+ + + + | POC GLUCOSE | Routin | 12/31/2017 | | Results for this | | | e | 11:14 AM | | procedure are in the | | | | PDT | | results section. | + +--------+ + + + | POC GLUCOSE | Routin | 12/31/2017 | | Results for this | | | e | 5:26 AM | | procedure are in the | | | | PDT | | results section. | + +--------+ + + + | EXTERNAL LAB: CBC | Routin | 12/31/2017 | | Results for this | | | e | 4:37 AM | | procedure are in the | | | | PDT | | results section. | + +--------+ + + + | PHOSPHORUS | Routin | 12/31/2017 | | Results for this | | | e | 4:37 AM | | procedure are in the | | | | PDT | | results section. | + +--------+ + + + | MAGNESIUM | Routin | 12/31/2017 | | Results for this | | | e | 4:37 AM | | procedure are in the | | | | PDT | | results section. | + +--------+ + + + | BASIC METABOLIC | Routin | 12/31/2017 | | Results for this | | PANEL | e | 4:37 AM | | procedure are in the | | | | PDT | | results section. | + +--------+ + + + | POC GLUCOSE | Routin | 12/30/2017 | | Results for this | | | e | 9:25 PM | | procedure are in the | | | | PDT | | results section. | + +--------+ + + + | POC GLUCOSE | Routin | 12/30/2017 | | Results for this | | | e | 4:27 PM | | procedure are in the | | | | PDT | | results section. | + +--------+ + + + | POC GLUCOSE | Routin | 12/30/2017 | | Results for this | | | e | 11:09 AM | | procedure are in the | | | | PDT | | results section. | + +--------+ + + + | POC GLUCOSE | Routin | 12/30/2017 | | Results for this | | | e | 5:16 AM | | procedure are in the | | | | PDT | | results section. | + +--------+ + + + | EXTERNAL LAB: CBC | Routin | 12/30/2017 | | Results for this | | | e | 4:40 AM | | procedure are in the | | | | PDT | | results section. | + +--------+ + + + | PHOSPHORUS | Routin | 12/30/2017 | | Results for this | | | e | 4:40 AM | | procedure are in the | | | | PDT | | results section. | + +--------+ + + + | MAGNESIUM | Routin | 12/30/2017 | | Results for this | | | e | 4:40 AM | | procedure are in the | | | | PDT | | results section. | + +--------+ + + + | BASIC METABOLIC | Routin | 12/30/2017 | | Results for this | | PANEL | e | 4:40 AM | | procedure are in the | | | | PDT | | results section. | + +--------+ + + + | POC GLUCOSE | Routin | 12/29/2017 | | Results for this | | | e | 9:11 PM | | procedure are in the | | | | PDT | | results section. | + +--------+ + + + | POC GLUCOSE | Routin | 12/29/2017 | | Results for this | | | e | 4:39 PM | | procedure are in the | | | | PDT | | results section. | + +--------+ + + + | POC GLUCOSE | Routin | 12/29/2017 | | Results for this | | | e | 12:05 PM | | procedure are in the | | | | PDT | | results section. | + +--------+ + + + | EXTERNAL LAB: CBC | Routin | 12/29/2017 | | Results for this | | | e | 5:13 AM | | procedure are in the | | | | PDT | | results section. | + +--------+ + + + | PHOSPHORUS | Routin | 12/29/2017 | | Results for this | | | e | 5:13 AM | | procedure are in the | | | | PDT | | results section. | + +--------+ + + + | B TYPE NATRIURETIC | Routin | 12/29/2017 | | Results for this | | PEPTIDE | e | 5:13 AM | | procedure are in the | | | | PDT | | results section. | + +--------+ + + + | MAGNESIUM | Routin | 12/29/2017 | | Results for this | | | e | 5:13 AM | | procedure are in the | | | | PDT | | results section. | + +--------+ + + + | BASIC METABOLIC | Routin | 12/29/2017 | | Results for this | | PANEL | e | 5:13 AM | | procedure are in the | | | | PDT | | results section. | + +--------+ + + + | POC GLUCOSE | Routin | 12/29/2017 | | Results for this | | | e | 5:10 AM | | procedure are in the | | | | PDT | | results section. | + +--------+ + + + | POC GLUCOSE | Routin | 12/28/2017 | | Results for this | | | e | 9:07 PM | | procedure are in the | | | | PDT | | results section. | + +--------+ + + + | POC GLUCOSE | Routin | 12/28/2017 | | Results for this | | | e | 4:21 PM | | procedure are in the | | | | PDT | | results section. | + +--------+ + + + | POC GLUCOSE | Routin | 12/28/2017 | | Results for this | | | e | 12:40 PM | | procedure are in the | | | | PDT | | results section. | + +--------+ + + + | ECG 12 LEAD | Routin | 12/28/2017 | | Results for this | | | e | 11:19 AM | | procedure are in the | | | | PDT | | results section. | + +--------+ + + + | EXTERNAL LAB: CBC | Routin | 12/28/2017 | | Results for this | | | e | 7:59 AM | | procedure are in the | | | | PDT | | results section. | + +--------+ + + + | BASIC METABOLIC | Routin | 12/28/2017 | | Results for this | | PANEL | e | 7:59 AM | | procedure are in the | | | | PDT | | results section. | + +--------+ + + + | PHOSPHORUS | Routin | 12/28/2017 | | Results for this | | | e | 7:23 AM | | procedure are in the | | | | PDT | | results section. | + +--------+ + + + | MAGNESIUM | Routin | 12/28/2017 | | Results for this | | | e | 7:23 AM | | procedure are in the | | | | PDT | | results section. | + +--------+ + + + | POC GLUCOSE | Routin | 12/28/2017 | | Results for this | | | e | 5:28 AM | | procedure are in the | | | | PDT | | results section. | + +--------+ + + + | ECG 12 LEAD | Routin | 12/27/2017 | | Results for this | | | e | 9:13 PM | | procedure are in the | | | | PDT | | results section. | + +--------+ + + + | POC GLUCOSE | Routin | 12/27/2017 | | Results for this | | | e | 8:17 PM | | procedure are in the | | | | PDT | | results section. | + +--------+ + + + | POTASSIUM | Routin | 12/27/2017 | | Results for this | | | e | 4:46 PM | | procedure are in the | | | | PDT | | results section. | + +--------+ + + + | MAGNESIUM | Routin | 12/27/2017 | | Results for this | | | e | 4:46 PM | | procedure are in the | | | | PDT | | results section. | + +--------+ + + + | ECHO COMPLETE W | Routin | 12/27/2017 | | Results for this | | CONTRAST | e | 4:08 PM | | procedure are in the | | | | PDT | | results section. | + +--------+ + + + | POC GLUCOSE | Routin | 12/27/2017 | | Results for this | | | e | 3:58 PM | | procedure are in the | | | | PDT | | results section. | + +--------+ + + + | ECG 12 LEAD | Routin | 12/27/2017 | | Results for this | | | e | 11:38 AM | | procedure are in the | | | | PDT | | results section. | + +--------+ + + + | POC GLUCOSE | Routin | 12/27/2017 | | Results for this | | | e | 11:36 AM | | procedure are in the | | | | PDT | | results section. | + +--------+ + + + | MRSA NAAT | STAT | 12/27/2017 | | Results for this | | | | 11:33 AM | | procedure are in the | | | | PDT | | results section. | + +--------+ + + + | XR CHEST 1 VIEW | Routin | 12/27/2017 | | Results for this | | | e | 11:25 AM | | procedure are in the | | | | PDT | | results section. | + +--------+ + + + | CV CARDIAC PROCEDURE | Routin | 12/27/2017 | | Results for this | | | e | 10:59 AM | | procedure are in the | | | | PDT | | results section. | + +--------+ + + + | CV VASCULAR | Routin | 12/27/2017 | | Results for this | | PROCEDURE | e | 10:53 AM | | procedure are in the | | | | PDT | | results section. | + +--------+ + + + | POC ISTAT, CG8, | Routin | 12/27/2017 | | Results for this | | ARTERIAL | e | 10:35 AM | | procedure are in the | | | | PDT | | results section. | + +--------+ + + + | ACTIVATED CLOTTING | Routin | 12/27/2017 | | Results for this | | TIME | e | 10:35 AM | | procedure are in the | | | | PDT | | results section. | + +--------+ + + + | POC GLUCOSE | Routin | 12/27/2017 | | Results for this | | | e | 10:21 AM | | procedure are in the | | | | PDT | | results section. | + +--------+ + + + | ACTIVATED CLOTTING | Routin | 12/27/2017 | | Results for this | | TIME | e | 9:55 AM | | procedure are in the | | | | PDT | | results section. | + +--------+ + + + | ACTIVATED CLOTTING | Routin | 12/27/2017 | | Results for this | | TIME | e | 9:35 AM | | procedure are in the | | | | PDT | | results section. | + +--------+ + + + | ACTIVATED CLOTTING | Routin | 12/27/2017 | | Results for this | | TIME | e | 9:10 AM | | procedure are in the | | | | PDT | | results section. | + +--------+ + + + | CV CARDIAC PROCEDURE | Routin | 12/27/2017 | | Results for this | | | e | 9:00 AM | | procedure are in the | | | | PDT | | results section. | + +--------+ + + + | PTT | Routin | 12/27/2017 | | Results for this | | | e | 6:51 AM | | procedure are in the | | | | PDT | | results section. | + +--------+ + + + | POC GLUCOSE | Routin | 12/27/2017 | | Results for this | | | e | 5:45 AM | | procedure are in the | | | | PDT | | results section. | + +--------+ + + + | EXTERNAL LAB: CBC | Routin | 12/27/2017 | | Results for this | | | e | 4:58 AM | | procedure are in the | | | | PDT | | results section. | + +--------+ + + + | LIPID PANEL | Routin | 12/27/2017 | | Results for this | | | e | 4:58 AM | | procedure are in the | | | | PDT | | results section. | + +--------+ + + + | TROPONIN I | Routin | 12/27/2017 | | Results for this | | | e | 4:58 AM | | procedure are in the | | | | PDT | | results section. | + +--------+ + + + | TSH | Routin | 12/27/2017 | | Results for this | | | e | 4:58 AM | | procedure are in the | | | | PDT | | results section. | + +--------+ + + + | PHOSPHORUS | Routin | 12/27/2017 | | Results for this | | | e | 4:58 AM | | procedure are in the | | | | PDT | | results section. | + +--------+ + + + | MAGNESIUM | Routin | 12/27/2017 | | Results for this | | | e | 4:58 AM | | procedure are in the | | | | PDT | | results section. | + +--------+ + + + | HEMOGLOBIN A1C | Routin | 12/27/2017 | | Results for this | | | e | 4:58 AM | | procedure are in the | | | | PDT | | results section. | + +--------+ + + + | COMPREHENSIVE | Routin | 12/27/2017 | | Results for this | | METABOLIC PANEL | e | 4:58 AM | | procedure are in the | | | | PDT | | results section. | + +--------+ + + + | ECG 12 LEAD | Routin | 12/27/2017 | | Results for this | | | e | 12:37 AM | | procedure are in the | | | | PDT | | results section. | + +--------+ + + + | TROPONIN I | Routin | 12/26/2017 | | Results for this | | | e | 11:41 PM | | procedure are in the | | | | PDT | | results section. | + +--------+ + + + | PTT | Routin | 12/26/2017 | | Results for this | | | e | 11:41 PM | | procedure are in the | | | | PDT | | results section. | + +--------+ + + + | POC GLUCOSE | Routin | 12/26/2017 | | Results for this | | | e | 9:22 PM | | procedure are in the | | | | PDT | | results section. | + +--------+ + + + | XR CHEST 1 VIEW | Routin | 12/26/2017 | | Results for this | | | e | 8:35 PM | | procedure are in the | | | | PDT | | results section. | + +--------+ + + + | ECG 12 LEAD | Routin | 12/26/2017 | | Results for this | | | e | 4:55 PM | | procedure are in the | | | | PDT | | results section. | + +--------+ + + + | TROPONIN I | Routin | 12/26/2017 | | Results for this | | | e | 4:45 PM | | procedure are in the | | | | PDT | | results section. | + +--------+ + + + | PTT | Routin | 12/26/2017 | | Results for this | | | e | 4:45 PM | | procedure are in the | | | | PDT | | results section. | + +--------+ + + + | PROTIME INR | Routin | 12/26/2017 | | Results for this | | | e | 4:45 PM | | procedure are in the | | | | PDT | | results section. | + +--------+ + + + | POC GLUCOSE | Routin | 12/26/2017 | | Results for this | | | e | 4:27 PM | | procedure are in the | | | | PDT | | results section. | + +--------+ + + + | XR CHEST 1 VIEW | Routin | 12/26/2017 | | Results for this | | | e | 1:23 AM | | procedure are in the | | | | PDT | | results section. | + +--------+ + + + documented in this encounter Results POC Glucose (12/31/2017 3:56 PM PDT) + + + + + + | Component | Value | Ref Range | Performed | Pathologist | | | | | At | Signature | + + + + + + | Glucose, | 252 (H)Comment: Testing | 65 - 99 mg/dL | EXTERNAL | | | Fingerstick | performed at [facility];[address] | | LAB | | | | [address];[place] | | | | | | [address] | | | | + + + + + + + + | Specimen | + + | | + + + +---------+ + + | Performing | Address | City/State/Zipcode | Phone Number | | Organization | | | | + +---------+ + + | EXTERNAL LAB | | | | + +---------+ + + POC Glucose (12/31/2017 11:14 AM PDT) + + + + + + | Component | Value | Ref Range | Performed | Pathologist | | | | | At | Signature | + + + + + + | Glucose, | 155 (H)Comment: Testing | 65 - 99 mg/dL | EXTERNAL | | | Fingerstick | performed at [facility];[address] | | LAB | | | | [address];[place], [place] | | | | | | [address] | | | | + + + + + + + + | Specimen | + + | | + + + +---------+ + + | Performing | Address | City/State/Zipcode | Phone Number | | Organization | | | | + +---------+ + + | EXTERNAL LAB | | | | + +---------+ + + POC Glucose (12/31/2017 5:26 AM PDT) + + + + + + | Component | Value | Ref Range | Performed | Pathologist | | | | | At | Signature | + + + + + + | Glucose, | 105 (H)Comment: Testing | 65 - 99 mg/dL | EXTERNAL | | | Fingerstick | performed at [facility];[address] | | LAB | | | | [address];[place] | | | | | | [address] | | | | + + + + + + + + | Specimen | + + | | + + + +---------+ + + | Performing | Address | City/State/Zipcode | Phone Number | | Organization | | | | + +---------+ + + | EXTERNAL LAB | | | | + +---------+ + + External Lab: CBC (12/31/2017 4:37 AM PDT) + + + + + + | Component | Value | Ref Range | Performed | Pathologist | | | | | At | Signature | + + + + + + | WBC | 11.37 (H) | 3.80 - 11.00 | EXTERNAL | | | | | K/uL | LAB | | + + + + + + | Non- | 3.75 | 3.70 - 5.10 | EXTERNAL | | | Red Blood | | M/uL | LAB | | | Cells | | | | | | Counted | | | | | + + + + + + | Hemoglobin | 12.7 | 11.3 - 15.5 | EXTERNAL | | | | | g/dL | LAB | | + + + + + + | Hematocrit, | 38.4 | 34.0 - 46.0 % | EXTERNAL | | | POC | | | LAB | | + + + + + + | MCV | 102.5 (H) | 80.0 - 100.0 fl | EXTERNAL | | | | | | LAB | | + + + + + + | MCH | 33.8 | 27.0 - 34.0 pg | EXTERNAL | | | | | | LAB | | + + + + + + | MCHC | 33.0 | 32.0 - 35.5 | EXTERNAL | | | | | g/dL | LAB | | + + + + + + | RDW-CV | 50.3 | 37 - 53 fl | EXTERNAL | | | | | | LAB | | + + + + + + | Platelet | 162 | 150 - 400 K/uL | EXTERNAL | | | Count | | | LAB | | | Plasma | | | | | + + + + + + | MPV | 8.2 | fl | EXTERNAL | | | | | | LAB | | + + + + + + | Differentia | AUTOMATED | | EXTERNAL | | | l Type | | | LAB | | + + + + + + | % Segmented | 77.12 | % | EXTERNAL | | | | | | LAB | | | Neutrophils | | | | | + + + + + + | % | 14.12 | % | EXTERNAL | | | Lymphocytes | | | LAB | | + + + + + + | % Monocytes | 7.60 | % | EXTERNAL | | | | | | LAB | | + + + + + + | % | 0.74 | % | EXTERNAL | | | Eosinophils | | | LAB | | + + + + + + | % Basophils | 0.42 | % | EXTERNAL | | | | | | LAB | | + + + + + + | Absolute | 8.77 (H) | 1.90 - 7.40 | EXTERNAL | | | Segmented | | K/uL | LAB | | | Neutrophils | | | | | + + + + + + | Absolute | 1.61 | 1.00 - 3.90 | EXTERNAL | | | Lymphocytes | | K/uL | LAB | | + + + + + + | Absolute | 0.87 (H) | 0.00 - 0.80 | EXTERNAL | | | Monocytes | | K/uL | LAB | | + + + + + + | Absolute | 0.08 | 0.00 - 0.50 | EXTERNAL | | | Eosinophils | | K/uL | LAB | | + + + + + + | Absolute | 0.05Comment: Testing | 0.00 - 0.10 | EXTERNAL | | | Basophils | performed at [facility];[address] | K/uL | LAB | | | | [address];[place], [place] | | | | | | [phone] | | | | + + + + + + + + | Specimen | + + | Blood specimen | | (specimen) | + + + +---------+ + + | Performing | Address | City/State/Zipcode | Phone Number | | Organization | | | | + +---------+ + + | EXTERNAL LAB | | | | + +---------+ + + Phosphorus (12/31/2017 4:37 AM PDT) + + + + + + | Component | Value | Ref Range | Performed | Pathologist | | | | | At | Signature | + + + + + + | PHOSPHORUS | 3.4Comment: Testing | 2.3 - 4.8 mg/dL | EXTERNAL | | | | performed at [facility];[address] | | LAB | | | | [address];[place], [place] | | | | | | [address] | | | | + + + + + + + + | Specimen | + + | Blood specimen | | (specimen) | + + + +---------+ + + | Performing | Address | City/State/Zipcode | Phone Number | | Organization | | | | + +---------+ + + | EXTERNAL LAB | | | | + +---------+ + + Magnesium (12/31/2017 4:37 AM PDT) + + + + + + | Component | Value | Ref Range | Performed | Pathologist | | | | | At | Signature | + + + + + + | Magnesium | 2.4Comment: Testing | 1.7 - 2.4 mg/dL | EXTERNAL | | | | performed at [facility];[address] | | LAB | | | | [address] [facility];[place], [place] | | | | | | [address] | | | | + + + + + + + + | Specimen | + + | Blood specimen | | (specimen) | + + + +---------+ + + | Performing | Address | City/State/Zipcode | Phone Number | | Organization | | | | + +---------+ + + | EXTERNAL LAB | | | | + +---------+ + + Basic Metabolic Panel (12/31/2017 4:37 AM PDT) + + + + + + | Component | Value | Ref Range | Performed | Pathologist | | | | | At | Signature | + + + + + + | Na | 143 | 135 - 145 | EXTERNAL | | | | | mmol/L | LAB | | + + + + + + | K | 4.0 | 3.5 - 4.9 | EXTERNAL | | | | | mmol/L | LAB | | + + + + + + | Cl | 105 | 99 - 109 mmol/L | EXTERNAL | | | | | | LAB | | + + + + + + | CO2 | 31 | 23 - 32 mmol/L | EXTERNAL | | | | | | LAB | | + + + + + + | Anion Gap | 11 | 5 - 20 mmol/L | EXTERNAL | | | | | | LAB | | + + + + + + | Glucose, | 95 | 65 - 99 mg/dL | EXTERNAL | | | Fasting | | | LAB | | + + + + + + | BUN | 24 | 8 - 25 mg/dL | EXTERNAL | | | | | | LAB | | + + + + + + | Creatinine | 0.97 | 0.50 - 1.00 | EXTERNAL | | | | | mg/dL | LAB | | + + + + + + | BUN/Creatin | 25 | | EXTERNAL | | | ine Ratio | | | LAB | | + + + + + + | Calcium | 8.8 | 8.5 - 10.5 | EXTERNAL | | | | | mg/dL | LAB | | + + + + + + | Estimated | 55 (L)Comment: GFR <60: | mL/min/1.73m2 | EXTERNAL | | | GFR | CHRONIC KIDNEY DISEASE, | | LAB | | | | IF FOUND OVER A 3 MONTH | | | | | | PERIOD.GFR <15: KIDNEY | | | | | | FAILURE.FOR | | | | | | AMERICANS, MULTIPLY THE | | | | | | CALCULATED GFR BY | | | | | | 1.210.This eGFR is | | | | | | calculated using the | | | | | | MDRD IDMS traceable | | | | | | equation.Testing | | | | | | performed at [facility] | | | | | | [facility];[place], [place] | | | | | | [address] | | | | + + + + + + + + | Specimen | + + | Blood specimen | | (specimen) | + + + +---------+ + + | Performing | Address | City/State/Zipcode | Phone Number | | Organization | | | | + +---------+ + + | EXTERNAL LAB | | | | + +---------+ + + POC Glucose (12/30/2017 9:25 PM PDT) + + + + + + | Component | Value | Ref Range | Performed | Pathologist | | | | | At | Signature | + + + + + + | Glucose, | 253 (H)Comment: Testing | 65 - 99 mg/dL | EXTERNAL | | | Fingerstick | performed at [facility];[address] | | LAB | | | | [address];[place] | | | | | | [address] | | | | + + + + + + + + | Specimen | + + | | + + + +---------+ + + | Performing | Address | City/State/Zipcode | Phone Number | | Organization | | | | + +---------+ + + | EXTERNAL LAB | | | | + +---------+ + + POC Glucose (12/30/2017 4:27 PM PDT) + + + + + + | Component | Value | Ref Range | Performed | Pathologist | | | | | At | Signature | + + + + + + | Glucose, | 260 (H)Comment: Testing | 65 - 99 mg/dL | EXTERNAL | | | Fingerstick | performed at [facility];[address] | | LAB | | | | [address];[place] | | | | | | [address] | | | | + + + + + + + + | Specimen | + + | | + + + +---------+ + + | Performing | Address | City/State/Zipcode | Phone Number | | Organization | | | | + +---------+ + + | EXTERNAL LAB | | | | + +---------+ + + POC Glucose (12/30/2017 11:09 AM PDT) + + + + + + | Component | Value | Ref Range | Performed | Pathologist | | | | | At | Signature | + + + + + + | Glucose, | 238 (H)Comment: Testing | 65 - 99 mg/dL | EXTERNAL | | | Fingerstick | performed at [facility];[address] | | LAB | | | | [address];[place] | | | | | | [address] | | | | + + + + + + + + | Specimen | + + | | + + + +---------+ + + | Performing | Address | City/State/Zipcode | Phone Number | | Organization | | | | + +---------+ + + | EXTERNAL LAB | | | | + +---------+ + + POC Glucose (12/30/2017 5:16 AM PDT) + + + + + + | Component | Value | Ref Range | Performed | Pathologist | | | | | At | Signature | + + + + + + | Glucose, | 105 (H)Comment: Testing | 65 - 99 mg/dL | EXTERNAL | | | Fingerstick | performed at [facility];[address] | | LAB | | | | [address];[place], [place] | | | | | | [address] | | | | + + + + + + + + | Specimen | + + | | + + + +---------+ + + | Performing | Address | City/State/Zipcode | Phone Number | | Organization | | | | + +---------+ + + | EXTERNAL LAB | | | | + +---------+ + + External Lab: CARLO (12/30/2017 4:40 AM PDT) + + + + + + | Component | Value | Ref Range | Performed | Pathologist | | | | | At | Signature | + + + + + + | WBC | 11.08 (H) | 3.80 - 11.00 | EXTERNAL | | | | | K/uL | LAB | | + + + + + + | Non- | 3.59 (L) | 3.70 - 5.10 | EXTERNAL | | | Red Blood | | M/uL | LAB | | | Cells | | | | | | Counted | | | | | + + + + + + | Hemoglobin | 12.3 | 11.3 - 15.5 | EXTERNAL | | | | | g/dL | LAB | | + + + + + + | Hematocrit, | 35.6 | 34.0 - 46.0 % | EXTERNAL | | | POC | | | LAB | | + + + + + + | MCV | 99.4 | 80.0 - 100.0 fl | EXTERNAL | | | | | | LAB | | + + + + + + | MCH | 34.3 (H) | 27.0 - 34.0 pg | EXTERNAL | | | | | | LAB | | + + + + + + | MCHC | 34.5 | 32.0 - 35.5 | EXTERNAL | | | | | g/dL | LAB | | + + + + + + | RDW-CV | 49.4 | 37 - 53 fl | EXTERNAL | | | | | | LAB | | + + + + + + | Platelet | 157 | 150 - 400 K/uL | EXTERNAL | | | Count | | | LAB | | | Plasma | | | | | + + + + + + | MPV | 9.0 | fl | EXTERNAL | | | | | | LAB | | + + + + + + | Differentia | AUTOMATED | | EXTERNAL | | | l Type | | | LAB | | + + + + + + | % Segmented | 74.39 | % | EXTERNAL | | | | | | LAB | | | Neutrophils | | | | | + + + + + + | % | 15.44 | % | EXTERNAL | | | Lymphocytes | | | LAB | | + + + + + + | % Monocytes | 8.94 | % | EXTERNAL | | | | | | LAB | | + + + + + + | % | 0.91 | % | EXTERNAL | | | Eosinophils | | | LAB | | + + + + + + | % Basophils | 0.32 | % | EXTERNAL | | | | | | LAB | | + + + + + + | Absolute | 8.24 (H) | 1.90 - 7.40 | EXTERNAL | | | Segmented | | K/uL | LAB | | | Neutrophils | | | | | + + + + + + | Absolute | 1.71 | 1.00 - 3.90 | EXTERNAL | | | Lymphocytes | | K/uL | LAB | | + + + + + + | Absolute | 0.99 (H) | 0.00 - 0.80 | EXTERNAL | | | Monocytes | | K/uL | LAB | | + + + + + + | Absolute | 0.10 | 0.00 - 0.50 | EXTERNAL | | | Eosinophils | | K/uL | LAB | | + + + + + + | Absolute | 0.04Comment: Testing | 0.00 - 0.10 | EXTERNAL | | | Basophils | performed at [facility], [address] | K/uL | LAB | | | | [place] [address], | | | | | | [place] [address] | | | | + + + + + + + + | Specimen | + + | Blood specimen | | (specimen) | + + + +---------+ + + | Performing | Address | City/State/Zipcode | Phone Number | | Organization | | | | + +---------+ + + | EXTERNAL LAB | | | | + +---------+ + + Phosphorus (12/30/2017 4:40 AM PDT) + + + + + + | Component | Value | Ref Range | Performed | Pathologist | | | | | At | Signature | + + + + + + | PHOSPHORUS | 2.1 (L)Comment: Testing | 2.3 - 4.8 mg/dL | EXTERNAL | | | | performed at [facility], [address] | | LAB | | | | [address], | | | | | | [place] [address] | | | | + + + + + + + + | Specimen | + + | Blood specimen | | (specimen) | + + + +---------+ + + | Performing | Address | City/State/Zipcode | Phone Number | | Organization | | | | + +---------+ + + | EXTERNAL LAB | | | | + +---------+ + + Magnesium (12/30/2017 4:40 AM PDT) + + + + + + | Component | Value | Ref Range | Performed | Pathologist | | | | | At | Signature | + + + + + + | Magnesium | 2.3Comment: Testing | 1.7 - 2.4 mg/dL | EXTERNAL | | | | performed at [facility], [address] | | LAB | | | | [place] [address], | | | | | | [place] [address] | | | | + + + + + + + + | Specimen | + + | Blood specimen | | (specimen) | + + + +---------+ + + | Performing | Address | City/State/Zipcode | Phone Number | | Organization | | | | + +---------+ + + | EXTERNAL LAB | | | | + +---------+ + + Basic Metabolic Panel (12/30/2017 4:40 AM PDT) + + + + + + | Component | Value | Ref Range | Performed | Pathologist | | | | | At | Signature | + + + + + + | Na | 141 | 135 - 145 | EXTERNAL | | | | | mmol/L | LAB | | + + + + + + | K | 4.0 | 3.5 - 4.9 | EXTERNAL | | | | | mmol/L | LAB | | + + + + + + | Cl | 101 | 99 - 109 mmol/L | EXTERNAL | | | | | | LAB | | + + + + + + | CO2 | 31 | 23 - 32 mmol/L | EXTERNAL | | | | | | LAB | | + + + + + + | Anion Gap | 13 | 5 - 20 mmol/L | EXTERNAL | | | | | | LAB | | + + + + + + | Glucose, | 98 | 65 - 99 mg/dL | EXTERNAL | | | Fasting | | | LAB | | + + + + + + | BUN | 24 | 8 - 25 mg/dL | EXTERNAL | | | | | | LAB | | + + + + + + | Creatinine | 1.0 | 0.50 - 1.00 | EXTERNAL | | | | | mg/dL | LAB | | + + + + + + | BUN/Creatin | 24 | | EXTERNAL | | | ine Ratio | | | LAB | | + + + + + + | Calcium | 8.3 (L) | 8.5 - 10.5 | EXTERNAL | | | | | mg/dL | LAB | | + + + + + + | Estimated | 53 (L)Comment: GFR <60: | mL/min/1.73m2 | EXTERNAL | | | GFR | CHRONIC KIDNEY DISEASE, | | LAB | | | | IF FOUND OVER A 3 MONTH | | | | | | PERIOD.GFR <15: KIDNEY | | | | | | FAILURE.FOR | | | | | | AMERICANS, MULTIPLY THE | | | | | | CALCULATED GFR BY | | | | | | 1.210.This eGFR is | | | | | | calculated using the | | | | | | MDRD IDMS traceable | | | | | | equation.Testing | | | | | | performed at [facility], [address] | | | | | [facility], | | | | | | [place] [address] | | | | + + + + + + + + | Specimen | + + | Blood specimen | | (specimen) | + + + +---------+ + + | Performing | Address | City/State/Zipcode | Phone Number | | Organization | | | | + +---------+ + + | EXTERNAL LAB | | | | + +---------+ + + POC Glucose (12/29/2017 9:11 PM PDT) + + + + + + | Component | Value | Ref Range | Performed | Pathologist | | | | | At | Signature | + + + + + + | Glucose, | 175 (H)Comment: Testing | 65 - 99 mg/dL | EXTERNAL | | | Fingerstick | performed at [facility];[address] | | LAB | | | | [address];[place] | | | | | | [address] | | | | + + + + + + + + | Specimen | + + | | + + + +---------+ + + | Performing | Address | City/State/Zipcode | Phone Number | | Organization | | | | + +---------+ + + | EXTERNAL LAB | | | | + +---------+ + + POC Glucose (12/29/2017 4:39 PM PDT) + + + + + + | Component | Value | Ref Range | Performed | Pathologist | | | | | At | Signature | + + + + + + | Glucose, | 157 (H)Comment: Testing | 65 - 99 mg/dL | EXTERNAL | | | Fingerstick | performed at [facility];[address] | | LAB | | | | [address];[place], [place] | | | | | | [address] | | | | + + + + + + + + | Specimen | + + | | + + + +---------+ + + | Performing | Address | City/State/Zipcode | Phone Number | | Organization | | | | + +---------+ + + | EXTERNAL LAB | | | | + +---------+ + + POC Glucose (12/29/2017 12:05 PM PDT) + + + + + + | Component | Value | Ref Range | Performed | Pathologist | | | | | At | Signature | + + + + + + | Glucose, | 268 (H)Comment: Testing | 65 - 99 mg/dL | EXTERNAL | | | Fingerstick | performed at [facility];[address] | | LAB | | | | [address];[place] | | | | | | [address] | | | | + + + + + + + + | Specimen | + + | | + + + +---------+ + + | Performing | Address | City/State/Zipcode | Phone Number | | Organization | | | | + +---------+ + + | EXTERNAL LAB | | | | + +---------+ + + External Lab: CBC (12/29/2017 5:13 AM PDT) + + + + + + | Component | Value | Ref Range | Performed | Pathologist | | | | | At | Signature | + + + + + + | WBC | 10.56 | 3.80 - 11.00 | EXTERNAL | | | | | K/uL | LAB | | + + + + + + | Non- | 3.58 (L) | 3.70 - 5.10 | EXTERNAL | | | Red Blood | | M/uL | LAB | | | Cells | | | | | | Counted | | | | | + + + + + + | Hemoglobin | 12.4 | 11.3 - 15.5 | EXTERNAL | | | | | g/dL | LAB | | + + + + + + | Hematocrit, | 36.1 | 34.0 - 46.0 % | EXTERNAL | | | POC | | | LAB | | + + + + + + | MCV | 100.9 (H) | 80.0 - 100.0 fl | EXTERNAL | | | | | | LAB | | + + + + + + | MCH | 34.6 (H) | 27.0 - 34.0 pg | EXTERNAL | | | | | | LAB | | + + + + + + | MCHC | 34.3 | 32.0 - 35.5 | EXTERNAL | | | | | g/dL | LAB | | + + + + + + | RDW-CV | 50.8 | 37 - 53 fl | EXTERNAL | | | | | | LAB | | + + + + + + | Platelet | 157 | 150 - 400 K/uL | EXTERNAL | | | Count | | | LAB | | | Plasma | | | | | + + + + + + | MPV | 8.7 | fl | EXTERNAL | | | | | | LAB | | + + + + + + | Differentia | AUTOMATED | | EXTERNAL | | | l Type | | | LAB | | + + + + + + | % Segmented | 76.15 | % | EXTERNAL | | | | | | LAB | | | Neutrophils | | | | | + + + + + + | % | 14.42 | % | EXTERNAL | | | Lymphocytes | | | LAB | | + + + + + + | % Monocytes | 8.46 | % | EXTERNAL | | | | | | LAB | | + + + + + + | % | 0.62 | % | EXTERNAL | | | Eosinophils | | | LAB | | + + + + + + | % Basophils | 0.35 | % | EXTERNAL | | | | | | LAB | | + + + + + + | Absolute | 8.04 (H) | 1.90 - 7.40 | EXTERNAL | | | Segmented | | K/uL | LAB | | | Neutrophils | | | | | + + + + + + | Absolute | 1.52 | 1.00 - 3.90 | EXTERNAL | | | Lymphocytes | | K/uL | LAB | | + + + + + + | Absolute | 0.89 (H) | 0.00 - 0.80 | EXTERNAL | | | Monocytes | | K/uL | LAB | | + + + + + + | Absolute | 0.07 | 0.00 - 0.50 | EXTERNAL | | | Eosinophils | | K/uL | LAB | | + + + + + + | Absolute | 0.04Comment: Testing | 0.00 - 0.10 | EXTERNAL | | | Basophils | performed at [facility];[address] | [address] | LAB | | | | [address];[place] | | | | | | [address] | | | | + + + + + + + + | Specimen | + + | Blood specimen | | (specimen) | + + + +---------+ + + | Performing | Address | City/State/Zipcode | Phone Number | | Organization | | | | + +---------+ + + | EXTERNAL LAB | | | | + +---------+ + + Phosphorus (12/29/2017 5:13 AM PDT) + + + + + + | Component | Value | Ref Range | Performed | Pathologist | | | | | At | Signature | + + + + + + | PHOSPHORUS | 2.0 (L)Comment: Testing | 2.3 - 4.8 mg/dL | EXTERNAL | | | | performed at [facility];[address] | | LAB | | | | [address];[place], [place] | | | | | | [address] | | | | + + + + + + + + | Specimen | + + | Blood specimen | | (specimen) | + + + +---------+ + + | Performing | Address | City/State/Zipcode | Phone Number | | Organization | | | | + +---------+ + + | EXTERNAL LAB | | | | + +---------+ + + B Type Natriuretic Peptide (12/29/2017 5:13 AM PDT) + + + + + + | Component | Value | Ref Range | Performed | Pathologist | | | | | At | Signature | + + + + + + | BNP | 364 (H)Comment: Testing | 0 - 100 pg/mL | EXTERNAL | | | | performed at [facility];[address] | | LAB | | | | [address];[place] | | | | | | [address] | | | | + + + + + + + + | Specimen | + + | Blood specimen | | (specimen) | + + + +---------+ + + | Performing | Address | City/State/Zipcode | Phone Number | | Organization | | | | + +---------+ + + | EXTERNAL LAB | | | | + +---------+ + + Magnesium (12/29/2017 5:13 AM PDT) + + + + + + | Component | Value | Ref Range | Performed | Pathologist | | | | | At | Signature | + + + + + + | Magnesium | 2.4Comment: Testing | 1.7 - 2.4 mg/dL | EXTERNAL | | | | performed at [facility];[address] | | LAB | | | | [address];[place], [place] | | | | | | [address] | | | | + + + + + + + + | Specimen | + + | Blood specimen | | (specimen) | + + + +---------+ + + | Performing | Address | City/State/Zipcode | Phone Number | | Organization | | | | + +---------+ + + | EXTERNAL LAB | | | | + +---------+ + + Basic Metabolic Panel (12/29/2017 5:13 AM PDT) + + + + + + | Component | Value | Ref Range | Performed | Pathologist | | | | | At | Signature | + + + + + + | Na | 140 | 135 - 145 | EXTERNAL | | | | | mmol/L | LAB | | + + + + + + | K | 4.1 | 3.5 - 4.9 | EXTERNAL | | | | | mmol/L | LAB | | + + + + + + | Cl | 101 | 99 - 109 mmol/L | EXTERNAL | | | | | | LAB | | + + + + + + | CO2 | 33 (H) | 23 - 32 mmol/L | EXTERNAL | | | | | | LAB | | + + + + + + | Anion Gap | 10 | 5 - 20 mmol/L | EXTERNAL | | | | | | LAB | | + + + + + + | Glucose, | 114 (H) | 65 - 99 mg/dL | EXTERNAL | | | Fasting | | | LAB | | + + + + + + | BUN | 26 (H) | 8 - 25 mg/dL | EXTERNAL | | | | | | LAB | | + + + + + + | Creatinine | 0.99 | 0.50 - 1.00 | EXTERNAL | | | | | mg/dL | LAB | | + + + + + + | BUN/Creatin | 26 | | EXTERNAL | | | ine Ratio | | | LAB | | + + + + + + | Calcium | 8.1 (L) | 8.5 - 10.5 | EXTERNAL | | | | | mg/dL | LAB | | + + + + + + | Estimated | 54 (L)Comment: GFR <60: | mL/min/1.73m2 | EXTERNAL | | | GFR | CHRONIC KIDNEY DISEASE, | | LAB | | | | IF FOUND OVER A 3 MONTH | | | | | | PERIOD.GFR <15: KIDNEY | | | | | | FAILURE.FOR | | | | | | AMERICANS, MULTIPLY THE | | | | | | CALCULATED GFR BY | | | | | | 1.210.This eGFR is | | | | | | calculated using the | | | | | | [facility] traceable | | | | | | equation.Testing | | | | | | performed at [facility] | | | | | | [facility];[place], [place] | | | | | | [address] | | | | + + + + + + + + | Specimen | + + | Blood specimen | | (specimen) | + + + +---------+ + + | Performing | Address | City/State/Zipcode | Phone Number | | Organization | | | | + +---------+ + + | EXTERNAL LAB | | | | + +---------+ + + POC Glucose (12/29/2017 5:10 AM PDT) + + + + + + | Component | Value | Ref Range | Performed | Pathologist | | | | | At | Signature | + + + + + + | Glucose, | 142 (H)Comment: Testing | 65 - 99 mg/dL | EXTERNAL | | | Fingerstick | performed at [facility];[address] | | LAB | | | | [address];[place] | | | | | | [address] | | | | + + + + + + + + | Specimen | + + | | + + + +---------+ + + | Performing | Address | City/State/Zipcode | Phone Number | | Organization | | | | + +---------+ + + | EXTERNAL LAB | | | | + +---------+ + + POC Glucose (12/28/2017 9:07 PM PDT) + + + + + + | Component | Value | Ref Range | Performed | Pathologist | | | | | At | Signature | + + + + + + | Glucose, | 195 (H)Comment: Testing | 65 - 99 mg/dL | EXTERNAL | | | Fingerstick | performed at [facility];[address] | | LAB | | | | [address];[place], [place] | | | | | | [address] | | | | + + + + + + + + | Specimen | + + | | + + + +---------+ + + | Performing | Address | City/State/Zipcode | Phone Number | | Organization | | | | + +---------+ + + | EXTERNAL LAB | | | | + +---------+ + + POC Glucose (12/28/2017 4:21 PM PDT) + + + + + + | Component | Value | Ref Range | Performed | Pathologist | | | | | At | Signature | + + + + + + | Glucose, | 167 (H)Comment: Testing | 65 - 99 mg/dL | EXTERNAL | | | Fingerstick | performed at [facility];[address] | | LAB | | | | [address];[place], [place] | | | | | | [address] | | | | + + + + + + + + | Specimen | + + | | + + + +---------+ + + | Performing | Address | City/State/Zipcode | Phone Number | | Organization | | | | + +---------+ + + | EXTERNAL LAB | | | | + +---------+ + + POC Glucose (12/28/2017 12:40 PM PDT) + + + + + + | Component | Value | Ref Range | Performed | Pathologist | | | | | At | Signature | + + + + + + | Glucose, | 147 (H)Comment: Testing | 65 - 99 mg/dL | EXTERNAL | | | Fingerstick | performed at [facility];[address] | | LAB | | | | [address];[place] | | | | | | [address] | | | | + + + + + + + + | Specimen | + + | | + + + +---------+ + + | Performing | Address | City/State/Zipcode | Phone Number | | Organization | | | | + +---------+ + + | EXTERNAL LAB | | | | + +---------+ + + ECG 12 lead (12/28/2017 11:19 AM PDT) + + + + + + | Component | Value | Ref Range | Performed | Pathologist | | | | | At | Signature | + + + + + + | DIAGNOSIS: | Sinus rhythm with | | EXTERNAL | | | | Premature atrial | | LAB | | | | complexesLow voltage | | | | | | QRSIncomplete right | | | | | | bundle branch | | | | | | blockCannot rule out | | | | | | Inferior infarct (cited | | | | | | on or before | | | | | | 27-DEC-2017)Nonspecific | | | | | | ST and/or T wave | | | | | | abnormalitiesAbnormal | | | | | | ECGWhen compared with | | | | | | ECG of 27-DEC-2017 | | | | | | 21:13,Premature atrial | | | | | | complexes are now | | | | | | PresentConfirmed by | | | | | | KATLYN RODAS MD ([id number]) | | | | | | on 12/28/2017 11:37:26 AM | | | | | | | | | | + + + + + + + + | Specimen | + + | | + + + + + | Narrative | Performed At | + + + | Historically converted procedure from [facility] Epic environment | EXTERNAL LAB | + + + + +---------+ + + | Performing | Address | City/State/Zipcode | Phone Number | | Organization | | | | + +---------+ + + | EXTERNAL LAB | | | | + +---------+ + + External Lab: CBC (12/28/2017 7:59 AM PDT) + + + + + + | Component | Value | Ref Range | Performed | Pathologist | | | | | At | Signature | + + + + + + | WBC | 10.84 | 3.80 - 11.00 | EXTERNAL | | | | | K/uL | LAB | | + + + + + + | Non- | 3.79 | 3.70 - 5.10 | EXTERNAL | | | Red Blood | | M/uL | LAB | | | Cells | | | | | | Counted | | | | | + + + + + + | Hemoglobin | 12.7 | 11.3 - 15.5 | EXTERNAL | | | | | g/dL | LAB | | + + + + + + | Hematocrit, | 38.4 | 34.0 - 46.0 % | EXTERNAL | | | POC | | | LAB | | + + + + + + | MCV | 101.5 (H) | 80.0 - 100.0 fl | EXTERNAL | | | | | | LAB | | + + + + + + | MCH | 33.5 | 27.0 - 34.0 pg | EXTERNAL | | | | | | LAB | | + + + + + + | MCHC | 33.1 | 32.0 - 35.5 | EXTERNAL | | | | | g/dL | LAB | | + + + + + + | RDW-CV | 50.8 | 37 - 53 fl | EXTERNAL | | | | | | LAB | | + + + + + + | Platelet | 149 (L) | 150 - 400 K/uL | EXTERNAL | | | Count | | | LAB | | | Plasma | | | | | + + + + + + | MPV | 8.3 | fl | EXTERNAL | | | | | | LAB | | + + + + + + | Differentia | AUTOMATED | | EXTERNAL | | | l Type | | | LAB | | + + + + + + | % Segmented | 81.66 | % | EXTERNAL | | | | | | LAB | | | Neutrophils | | | | | + + + + + + | % | 9.07 | % | EXTERNAL | | | Lymphocytes | | | LAB | | + + + + + + | % Monocytes | 8.85 | % | EXTERNAL | | | | | | LAB | | + + + + + + | % | 0.00 | % | EXTERNAL | | | Eosinophils | | | LAB | | + + + + + + | % Basophils | 0.42 | % | EXTERNAL | | | | | | LAB | | + + + + + + | Absolute | 8.85 (H) | 1.90 - 7.40 | EXTERNAL | | | Segmented | | K/uL | LAB | | | Neutrophils | | | | | + + + + + + | Absolute | 0.98 (L) | 1.00 - 3.90 | EXTERNAL | | | Lymphocytes | | K/uL | LAB | | + + + + + + | Absolute | 0.96 (H) | 0.00 - 0.80 | EXTERNAL | | | Monocytes | | K/uL | LAB | | + + + + + + | Absolute | 0.00 | 0.00 - 0.50 | EXTERNAL | | | Eosinophils | | K/uL | LAB | | + + + + + + | Absolute | 0.05Comment: Testing | 0.00 - 0.10 | EXTERNAL | | | Basophils | performed at [facility];[address] | K/u[address] | LAB | | | | [address];[place] | | | | | | [address] | | | | + + + + + + + + | Specimen | + + | Blood specimen | | (specimen) | + + + +---------+ + + | Performing | Address | City/State/Zipcode | Phone Number | | Organization | | | | + +---------+ + + | EXTERNAL LAB | | | | + +---------+ + + Basic Metabolic Panel (12/28/2017 7:59 AM PDT) + + + + + + | Component | Value | Ref Range | Performed | Pathologist | | | | | At | Signature | + + + + + + | Na | 139 | 135 - 145 | EXTERNAL | | | | | mmol/L | LAB | | + + + + + + | K | 4.2 | 3.5 - 4.9 | EXTERNAL | | | | | mmol/L | LAB | | + + + + + + | Cl | 101 | 99 - 109 mmol/L | EXTERNAL | | | | | | LAB | | + + + + + + | CO2 | 32 | 23 - 32 mmol/L | EXTERNAL | | | | | | LAB | | + + + + + + | Anion Gap | 10 | 5 - 20 mmol/L | EXTERNAL | | | | | | LAB | | + + + + + + | Glucose, | 147 (H) | 65 - 99 mg/dL | EXTERNAL | | | Fasting | | | LAB | | + + + + + + | BUN | 27 (H) | 8 - 25 mg/dL | EXTERNAL | | | | | | LAB | | + + + + + + | Creatinine | 1.2 (H) | 0.50 - 1.00 | EXTERNAL | | | | | mg/dL | LAB | | + + + + + + | BUN/Creatin | 23 | | EXTERNAL | | | ine Ratio | | | LAB | | + + + + + + | Calcium | 8.7 | 8.5 - 10.5 | EXTERNAL | | | | | mg/dL | LAB | | + + + + + + | Estimated | 43 (L)Comment: GFR <60: | mL/min/1.73m2 | EXTERNAL | | | GFR | CHRONIC KIDNEY DISEASE, | | LAB | | | | IF FOUND OVER A 3 MONTH | | | | | | PERIOD.GFR <15: KIDNEY | | | | | | FAILURE.FOR | | | | | | AMERICANS, MULTIPLY THE | | | | | | CALCULATED GFR BY | | | | | | 1.210.This eGFR is | | | | | | calculated using the | | | | | | MDRD [facility]MS traceable | | | | | | equation.Testing | | | | | | performed at [facility], [address] | | | | | [facility], | | | | | | [place] [address] | | | | + + + + + + + + | Specimen | + + | Blood specimen | | (specimen) | + + + +---------+ + + | Performing | Address | City/State/Zipcode | Phone Number | | Organization | | | | + +---------+ + + | EXTERNAL LAB | | | | + +---------+ + + Phosphorus (12/28/2017 7:23 AM PDT) + + + + + + | Component | Value | Ref Range | Performed | Pathologist | | | | | At | Signature | + + + + + + | PHOSPHORUS | 4.2Comment: Testing | 2.3 - 4.8 mg/dL | EXTERNAL | | | | performed at [facility];[address] | | LAB | | | | [address];[place] | | | | | | [address] | | | | + + + + + + + + | Specimen | + + | Blood specimen | | (specimen) | + + + +---------+ + + | Performing | Address | City/State/Zipcode | Phone Number | | Organization | | | | + +---------+ + + | EXTERNAL LAB | | | | + +---------+ + + Magnesium (12/28/2017 7:23 AM PDT) + + + + + + | Component | Value | Ref Range | Performed | Pathologist | | | | | At | Signature | + + + + + + | Magnesium | 2.5 (H)Comment: Testing | 1.7 - 2.4 mg/dL | EXTERNAL | | | | performed at [facility];[address] | | LAB | | | | [address];[place] | | | | | | [address] | | | | + + + + + + + + | Specimen | + + | Blood specimen | | (specimen) | + + + +---------+ + + | Performing | Address | City/State/Zipcode | Phone Number | | Organization | | | | + +---------+ + + | EXTERNAL LAB | | | | + +---------+ + + POC Glucose (12/28/2017 5:28 AM PDT) + + + + + + | Component | Value | Ref Range | Performed | Pathologist | | | | | At | Signature | + + + + + + | Glucose, | 211 (H)Comment: Testing | 65 - 99 mg/dL | EXTERNAL | | | Fingerstick | performed at [facility] | | LAB | | | | [address];[place], [place] | | | | | | [address] | | | | + + + + + + + + | Specimen | + + | | + + + +---------+ + + | Performing | Address | City/State/Zipcode | Phone Number | | Organization | | | | + +---------+ + + | EXTERNAL LAB | | | | + +---------+ + + ECG 12 lead (12/27/2017 9:13 PM PDT) + + + + + + | Component | Value | Ref Range | Performed | Pathologist | | | | | At | Signature | + + + + + + | DIAGNOSIS: | Sinus bradycardiaLow | | EXTERNAL | | | | voltage QRSIncomplete | | LAB | | | | right bundle branch | | | | | | blockCannot rule out | | | | | | Inferior infarct (cited | | | | | | on or before | | | | | | 27-DEC-2017)Nonspecific | | | | | | ST and/or T wave | | | | | | abnormalitiesAbnormal | | | | | | ECGWhen compared with | | | | | | ECG of 27-DEC-2017 | | | | | | 11:38,No significant | | | | | | change was | | | | | | foundConfirmed by | | | | | | KATLYN RODAS MD ([id number]) | | | | | | on 12/28/2017 7:53:02 AM | | | | + + + + + + + + | Specimen | + + | | + + + + + | Narrative | Performed At | + + + | Historically converted procedure from [facility] environment | EXTERNAL LAB | + + + + +---------+ + + | Performing | Address | City/State/Zipcode | Phone Number | | Organization | | | | + +---------+ + + | EXTERNAL LAB | | | | + +---------+ + + POC Glucose (12/27/2017 8:17 PM PDT) + + + + + + | Component | Value | Ref Range | Performed | Pathologist | | | | | At | Signature | + + + + + + | Glucose, | 192 (H)Comment: Testing | 65 - 99 mg/dL | EXTERNAL | | | Fingerstick | performed at [facility];[address] | | LAB | | | | [address];[place] | | | | | | [address] | | | | + + + + + + + + | Specimen | + + | | + + + +---------+ + + | Performing | Address | City/State/Zipcode | Phone Number | | Organization | | | | + +---------+ + + | EXTERNAL LAB | | | | + +---------+ + + Potassium (12/27/2017 4:46 PM PDT) + + + + + + | Component | Value | Ref Range | Performed | Pathologist | | | | | At | Signature | + + + + + + | K | 4.4Comment: Testing | 3.5 - 4.9 | EXTERNAL | | | | performed at [facility];[address] | mmol/L | LAB | | | | [address];[place], [place] | | | | | | [address] | | | | + + + + + + + + | Specimen | + + | Blood specimen | | (specimen) | + + + +---------+ + + | Performing | Address | City/State/Zipcode | Phone Number | | Organization | | | | + +---------+ + + | EXTERNAL LAB | | | | + +---------+ + + Magnesium (12/27/2017 4:46 PM PDT) + + + + + + | Component | Value | Ref Range | Performed | Pathologist | | | | | At | Signature | + + + + + + | Magnesium | 2.2Comment: Testing | 1.7 - 2.4 mg/dL | EXTERNAL | | | | performed at [facility] [place];[address] | | LAB | | | | [facility];[place], [place] | | | | | | [id number] | | | | + + + + + + + + | Specimen | + + | Blood specimen | | (specimen) | + + + +---------+ + + | Performing | Address | City/State/Zipcode | Phone Number | | Organization | | | | + +---------+ + + | EXTERNAL LAB | | | | + +---------+ + + ECHO Complete w Contrast (12/27/2017 4:08 PM PDT) + + | Specimen | + + | | + + + + + | Impressions | Performed At | + + + | 1. This was a technically difficult study with suboptimal views. | | | Patient supine. 2. Overall left ventricular systolic function is | | | mild-moderately impaired with, an EF between 40 - 45 %. 3. The | | | diastolic filling pattern indicates impaired relaxation consistent | | | with mild dysfunction (Grade I). 4. The RV was not well visualized in | | | apical views, but appears to have normal systolic function on limited | | | subcostal and parasternal views. 5. There is moderate to severe | | | pulmonary hypertension. The right ventricular systolic pressure | | | (pulmonary artery systolic pressure), as measured by Doppler, is 58 - | | | 63 mm Hg. 6. No significant valvular abnormalities are noted. 7. There | | | are several clinically significant changes noted in comparison to | | | the previous echocardiographic study, done 02/26/15, as detailed | | | below. | | + + + + + + | Narrative | Performed At | + + + | Patient Name: YULIANA HUMPHREYS Date of : 1940 | | | Performing Physician: NASH GENAO MD | | | | | | INDICATIONS Acute [place] CONCLUSIONS 1. | | | This was a technically difficult study with suboptimal views. Patient | | | supine. 2. Overall left ventricular systolic function is | | | mild-moderately impaired with, an EF between 40 - 45 %. 3. The | | | diastolic filling pattern indicates impaired relaxation consistent | | | with mild dysfunction (Grade I). 4. The RV was not well visualized in | | | apical views, but appears to have normal systolic function on limited | | | subcostal and parasternal views. 5. There is moderate to severe | | | pulmonary hypertension. The right ventricular systolic pressure | | | (pulmonary artery systolic pressure), as measured by Doppler, is 58 - | | | 63 mm Hg. 6. No significant valvular abnormalities are noted. 7. There | | | are several clinically significant changes noted in comparison to | | | the previous echocardiographic study, done 02/26/15, as detailed | | | below. FINDINGS -------- Study: A 2-dimensional transthoracic | | | echocardiogram with m-mode, spectral and color flow Doppler was | | | perfomed. Study: This was a technically difficult study with | | | suboptimal views. Patient supine. Left Ventricle: Overall left | | | ventricular systolic function is mild-moderately impaired with, an EF | | | between 40 - 45%, decreased from an EF of 50 - 55% on the previous | | | study. Left Ventricle: The left ventricle is moderately dilated. | | | Left Ventricle: Left ventricular wall thickness is normal. Left | | | Ventricle: The diastolic filling pattern indicates impaired relaxation | | | consistent with mild dysfunction (Grade I). Left Ventricle: The | | | following regional wall motion abnormalities include: Left Ventricle: | | | mid anteroseptal - dyskinetic; Left Ventricle: basal inferior - | | | mildly hypokinetic; Left Ventricle: posterior - severely hypokinetic; | | | Left Ventricle: apical septum - dyskinetic; Left Ventricle: | | | inferior apex - severely hypokinetic; Left Ventricle: apex - | | | dyskinetic; Left Ventricle: The remaining left ventricular segments | | | contract normally. Right Ventricle: The right ventricle is mildly | | | enlarged measuring between 3.4 - 3.7 cm. Right Ventricle: The RV was | | | not well visualized in apical views, but appears to have normal | | | systolic function on limited subcostal and parasternal views. Right | | | Ventricle: Pacer/ICD wire seen. Left Atrium: The left atrium is | | | normal in size. Right Atrium: The right atrium is mildly enlarged. | | | Aortic Valve: The aortic valve is trileaflet. Aortic Valve: There is | | | mild aortic valve sclerosis without stenosis. Aortic Valve: The | | | aortic valve is mildly calcified. Aortic Valve: There is no evidence | | | of aortic regurgitation. Mitral Valve: The mitral valve is normal. | | | Mitral Valve: Mild mitral regurgitation is present, unchanged from the | | | prior study. Mitral Valve: No evidence of MVP. Mitral Valve: Mild | | | mitral annular calcification present. Tricuspid Valve: The tricuspid | | | valve appears structurally normal. Tricuspid Valve: Mild tricuspid | | | regurgitation is present, decreased from moderate TR on the prior | | | exam. Tricuspid Valve: There is moderate to severe pulmonary | | | hypertension. Tricuspid Valve: The right ventricular systolic | | | pressure (pulmonary artery systolic pressure), as measured by Doppler, | | | is 58 - 63 mm Hg. This has increased significantly from mild | | | pulmonary hypertension, with a peak RVSP of 39.8 mm Hg on the previous | | | study. Pulmonic Valve: The pulmonic valve is normal. Pulmonic | | | Valve: Trace pulmonic regurgitation. Pericardium: There is no | | | pericardial effusion. IVC/Hepatic Veins: The inferior vena cava is | | | normal in size and collapses > 50 % with sniff, indicating normal | | | central venous pressures. Aorta: The aortic root, ascending aorta and | | | aortic arch are normal. Mass: No mass visualized Thrombus: No clot | | | visualized Thrombus: No vegetation visualized. Septum: No ASD | | | observed. Septum: No VSD observed. Contrast: Poor visualization. | | | Definity was used to opacify the left ventricular chamber and improve | | | delineation of the endocardial border. MEASUREMENTS | | | RA Area: 22.86 cm2 Ao asc: 2.90 cm Ao sinus: 3.10 cm | | | IVC: 2.53 cm LA Diam: 3.70 cm EDV(Teich): 224.86 ml IVSd: | | | 1.12 cm LVIDd: 6.61 cm LVPWd: 1.10 cm LVOT Diam: 2.15 | | | cm %FS: 13.62 % EF(Teich): 28.39 % ESV(Teich): 161.01 ml | | | IVSs: 1.42 cm LVIDs: 5.71 cm LVPWs: 1.14 cm SV(Teich): | | | 63.84 ml RVIDd: 3.42 cm LVEF MOD A2C: 42.03 % SV MOD A2C: | | | 54.99 ml LVEF MOD A4C: 47.09 % SV MOD A4C: 72.86 ml EF | | | Biplane: 45.76 % LVEDV MOD BP: 147.02 ml LVESV MOD BP: | | | 79.74 ml LVEDV MOD A2C: 130.81 ml LVLd A2C: 7.74 cm LVEDV MOD | | | A4C: 154.70 ml LVLd A4C: 8.33 cm LVESV MOD A2C: 75.82 ml | | | LVLs A2C: 7.51 cm LVESV MOD A4C: 81.84 ml LVLs A4C: 7.23 cm | | | LAESV(A-L): 59.90 ml LAESV Index (A-L): 30.10 ml/m2 LAAs | | | A2C: 25.25 cm2 LAESV A-L A2C: 80.09 ml LALs A2C: 6.76 cm | | | LAAs A4C: 17.87 cm2 LAESV A-L A4C: 42.38 ml LALs A4C: 6.39 | | | cm TAPSE: 2.27 cm HR: 57.46 BPM AV maxP.37 mmHg AV | | | meanP.40 mmHg AV Vmax: 1.61 m/s AV Vmean: 1.22 m/s AV | | | VTI: 41.09 cm LEATHA Vmax: 2.19 cm2 LEATHA (VTI): 1.92 cm2 AVAI | | | Vmax: 0.00 cm2/m2 AVAI (VTI): 0.00 cm2/m2 LVCI Dopp: 2.22 | | | l/minm2 LVCO Dopp: 4.42 l/min HR: 55.98 BPM LVOT maxPG: | | | 3.74 mmHg LVOT meanP.02 mmHg LVSI Dopp: 39.67 ml/m2 LVSV | | | Dopp: 78.95 ml LVOT Vmax: 0.96 m/s LVOT Vmean: 0.66 m/s | | | LVOT VTI: 21.64 cm MV A Jarrod: 1.17 m/s MV DecT: 193.27 ms | | | MV E Jarrod: 1.01 m/s MV E/A Ratio: 0.86 MV PHT: 54.76 ms MVA | | | By PHT: 4.01 cm2 MV A Dur: 122.74 ms Septal e': 0.04 m/s | | | Septal E/e': 23.48 Lateral e': 0.05 m/s Lateral E/e': 18.50 | | | HR: 68.24 BPM PV maxP.70 mmHg PV meanP.94 mmHg | | | PV Vmax: 0.96 m/s PV Vmean: 0.65 m/s PV VTI: 19.81 cm PV | | | maxP.30 mmHg PV Vmax: 1.15 m/s RAP: 3 mmHg RV S': | | | 0.11 m/s RVSP: 55.80 mmHg TR maxP.80 mmHg TR Vmax: | | | 3.63 m/s Level Designer: Authenticated by: NASH GENAO MD | | | Report Date/Time: 12-27-2017 18:35:12 | | + + + + + | Procedure Note | + + | Akshat Olson Conversion - 12/28/2018 5:54 AM PDT Patient Name: Blake HUMPHREYS of | | : 1940 Performing Physician: NASH GENAO, | | INDICATIONS A | | yana LARIOS CONCLUSIONS 1. This was a technically difficult study with suboptimal | | views. Patient supine.2. Overall left ventricular systolic function is mild-moderately | | impaired with, an EF between 40 - 45 %.3. The diastolic filling pattern indicates | | impaired relaxation consistent with mild dysfunction (Grade I).4. The RV was not well | | visualized in apical views, but appears to have normal systolic function on limited | | subcostal and parasternal views.5. There is moderate to severe pulmonary hypertension. | | The right ventricular systolic pressure (pulmonary artery systolic pressure), as | | measured by Doppler, is 58 - 63 mm Hg. 6. No significant valvular abnormalities are | | noted. 7. There are several clinically significant changes noted in comparison to the | | previous echocardiographic study, done 02/26/15, as detailed below. | | FINDINGS--------Study: A 2-dimensional transthoracic echocardiogram with m-mode, | | spectral and color flow Doppler was perfomed.Study: This was a technically difficult | | study with suboptimal views. Patient supine.Left Ventricle: Overall left ventricular | | systolic function is mild-moderately impaired with, an EF between 40 - 45%, decreased | | from an EF of 50 - 55% on the previous study.Left Ventricle: The left ventricle is | | moderately dilated.Left Ventricle: Left ventricular wall thickness is normal.Left | | Ventricle: The diastolic filling pattern indicates impaired relaxation consistent with | | mild dysfunction (Grade I).Left Ventricle: The following regional wall motion | | abnormalities include:Left Ventricle: mid anteroseptal - dyskinetic;Left Ventricle: | | basal inferior - mildly hypokinetic;Left Ventricle: posterior - severely | | hypokinetic;Left Ventricle: apical septum - dyskinetic;Left Ventricle: inferior apex - | | severely hypokinetic;Left Ventricle: apex - dyskinetic;Left Ventricle: The remaining | | left ventricular segments contract normally.Right Ventricle: The right ventricle is | | mildly enlarged measuring between 3.4 - 3.7 cm.Right Ventricle: The RV was not well | | visualized in apical views, but appears to have normal systolic function on limited | | subcostal and parasternal views.Right Ventricle: Pacer/ICD wire seen.Left Atrium: The | | left atrium is normal in size.Right Atrium: The right atrium is mildly enlarged.Aortic | | Valve: The aortic valve is trileaflet.Aortic Valve: There is mild aortic valve sclerosis | | without stenosis.Aortic Valve: The aortic valve is mildly calcified.Aortic Valve: There | | is no evidence of aortic regurgitation.Mitral Valve: The mitral valve is normal.Mitral | | Valve: Mild mitral regurgitation is present, unchanged from the prior study.Mitral | | Valve: No evidence of MVP.Mitral Valve: Mild mitral annular calcification | | present.Tricuspid Valve: The tricuspid valve appears structurally normal.Tricuspid | | Valve: Mild tricuspid regurgitation is present, decreased from moderate TR on the prior | | exam.Tricuspid Valve: There is moderate to severe pulmonary hypertension.Tricuspid | | Valve: The right ventricular systolic pressure (pulmonary artery systolic pressure), as | | measured by Doppler, is 58 - 63 mm Hg. This has increased significantly from mild | | pulmonary hypertension, with a peak RVSP of 39.8 mm Hg on the previous study.Pulmonic | | Valve: The pulmonic valve is normal.Pulmonic Valve: Trace pulmonic | | regurgitation.Pericardium: There is no pericardial effusion.IVC/Hepatic Veins: The | | inferior vena cava is normal in size and collapses > 50 % with sniff, indicating normal | | central venous pressures.Aorta: The aortic root, ascending aorta and aortic arch are | | normal.Mass: No mass visualizedThrombus: No clot visualizedThrombus: No vegetation | | visualized.Septum: No ASD observed.Septum: No VSD observed.Contrast: Poor visualization. | | Definity was used to opacify the left ventricular chamber and improve delineation of | | the endocardial border. MEASUREMENTS RA Area: 22.86 cm2Ao asc: 2.90 cmAo | | sinus: 3.10 cmIVC: 2.53 cmLA Diam: 3.70 cmEDV(Teich): 224.86 mlIVSd: 1.12 | | cmLVIDd: 6.61 cmLVPWd: 1.10 cmLVOT Diam: 2.15 cm%FS: 13.62 %EF(Teich): 28.39 | | %ESV(Teich): 161.01 mlIVSs: 1.42 cmLVIDs: 5.71 cmLVPWs: 1.14 cmSV(Teich): | | 63.84 mlRVIDd: 3.42 cmLVEF MOD A2C: 42.03 %SV MOD A2C: 54.99 mlLVEF MOD A4C: | | 47.09 %SV MOD A4C: 72.86 mlEF Biplane: 45.76 %LVEDV MOD BP: 147.02 mlLVESV MOD BP: | | 79.74 mlLVEDV MOD A2C: 130.81 mlLVLd A2C: 7.74 cmLVEDV MOD A4C: 154.70 mlLVLd | | A4C: 8.33 cmLVESV MOD A2C: 75.82 mlLVLs A2C: 7.51 cmLVESV MOD A4C: 81.84 mlLVLs | | A4C: 7.23 cmLAESV(A-L): 59.90 mlLAESV Index (A-L): 30.10 ml/m2LAAs A2C: 25.25 | | [id number] A-L A2C: 80.09 mlLALs A2C: 6.76 cmLAAs A4C: 17.87 [id number] A-L A4C: | | 42.38 mlLALs A4C: 6.39 cmTAPSE: 2.27 cmHR: 57.46 BPMAV maxP.37 mmHgAV | | meanP.40 mmHgAV Vmax: 1.61 m/Maurice Vmean: 1.22 m/Maurice VTI: 41.09 cmAVA Vmax: | | 2.19 cm2AVA (VTI): 1.92 [id number] Vmax: 0.00 cm2/m2AVAI (VTI): 0.00 cm2/m2LVCI Dopp: | | 2.22 l/[id number] Dopp: 4.42 l/minHR: 55.98 BPMLVOT maxP.74 mmHgLVOT meanPG: | | 2.02 mmHgLVSI Dopp: 39.67 ml/m2LVSV Dopp: 78.95 mlLVOT Vmax: 0.96 m/sLVOT | | Vmean: 0.66 m/sLVOT VTI: 21.64 cmMV A Jarrod: 1.17 m/sMV DecT: 193.27 msMV E Jarrod: | | 1.01 m/sMV E/A Ratio: 0.86MV PHT: 54.76 msMVA By PHT: 4.01 cm2MV A Dur: 122.74 | | msSeptal e': 0.04 m/sSeptal E/e': 23.48Lateral e': 0.05 m/sLateral E/e': | | 18.50HR: 68.24 BPMPV maxP.70 mmHgPV meanP.94 mmHgPV Vmax: 0.96 m/sPV | | Vmean: 0.65 m/sPV VTI: 19.81 cmPV maxP.30 mmHgPV Vmax: 1.15 m/sRAP: 3 | | mmHgRV S': 0.11 m/sRVSP: 55.80 mmHgTR maxP.80 mmHgTR Vmax: 3.63 m/s | | Level Designer: Debbiehenticated by: Haily HATCH Date/Time: 12-27-2017 18:35:12 | | IMPRESSION: 1. This was a technically difficult study with suboptimal views. Patient | | supine.2. Overall left ventricular systolic function is mild-moderately impaired with, | | an EF between 40 - 45 %.3. The diastolic filling pattern indicates impaired relaxation | | consistent with mild dysfunction (Grade I).4. The RV was not well visualized in apical | | views, but appears to have normal systolic function on limited subcostal and parasternal | | views.5. There is moderate to severe pulmonary hypertension. The right ventricular | | systolic pressure (pulmonary artery systolic pressure), as measured by Doppler, is 58 - | | 63 mm Hg. 6. No significant valvular abnormalities are noted. 7. There are several | | clinically significant changes noted in comparison to the previous echocardiographic | | study, done 02/26/15, as detailed below. | |EF(Teich): 28.39 % | |ESV(Teich): 161.01 ml | |IVSs: 1.42 cm | |LVIDs: 5.71 cm | |LVPWs: 1.14 cm | |SV(Teich): 63.84 ml | |RVIDd: 3.42 cm | |LVEF MOD A2C: 42.03 % | |SV MOD A2C: 54.99 ml | |LVEF MOD A4C: 47.09 % | |SV MOD A4C: 72.86 ml | |EF Biplane: 45.76 % | |LVEDV MOD BP: 147.02 ml | |LVESV MOD BP: 79.74 ml | |LVEDV MOD A2C: 130.81 ml | |LVLd A2C: 7.74 cm | |LVEDV MOD A4C: 154.70 ml | |LVLd A4C: 8.33 cm | |LVESV MOD A2C: 75.82 ml | |LVLs A2C: 7.51 cm | |LVESV MOD A4C: 81.84 ml | |LVLs A4C: 7.23 cm | |LAESV(A-L): 59.90 ml | |LAESV Index (A-L): 30.10 ml/m2 | |LAAs A2C: 25.25 cm2 | |LAESV A-L A2C: 80.09 ml | |LALs A2C: 6.76 cm | |LAAs A4C: 17.87 cm2 | |LAESV A-L A4C: 42.38 ml | |LALs A4C: 6.39 cm | |TAPSE: 2.27 cm | |HR: 57.46 BPM | |AV maxP.37 mmHg | |AV meanP.40 mmHg | |AV Vmax: 1.61 m/s | |AV Vmean: 1.22 m/s | |AV VTI: 41.09 cm | |LEATHA Vmax: 2.19 cm2 | |LEATHA (VTI): 1.92 cm2 | |AVAI Vmax: 0.00 cm2/m2 | |AVAI (VTI): 0.00 cm2/m2 | |LVCI Dopp: 2.22 l/minm2 | |LVCO Dopp: 4.42 l/min | |HR: 55.98 BPM | |LVOT maxP.74 mmHg | |LVOT meanP.02 mmHg | |LVSI Dopp: 39.67 ml/m2 | |LVSV Dopp: 78.95 ml | |LVOT Vmax: 0.96 m/s | |LVOT Vmean: 0.66 m/s | |LVOT VTI: 21.64 cm | |MV A Jarrod: 1.17 m/s | |MV DecT: 193.27 ms | |MV E Jarrod: 1.01 m/s | |MV E/A Ratio: 0.86 | |MV PHT: 54.76 ms | |MVA By PHT: 4.01 cm2 | |MV A Dur: 122.74 ms | |Septal e': 0.04 m/s | |Septal E/e': 23.48 | |Lateral e': 0.05 m/s | |Lateral E/e': 18.50 | |HR: 68.24 BPM | |PV maxP.70 mmHg | |PV meanP.94 mmHg | |PV Vmax: 0.96 m/s | |PV Vmean: 0.65 m/s | |PV VTI: 19.81 cm | |PV maxP.30 mmHg | |PV Vmax: 1.15 m/s | |RAP: 3 mmHg | |RV S': 0.11 m/s | |RVSP: 55.80 mmHg | |TR maxP.80 mmHg | |TR Vmax: 3.63 m/s | | | |Level Designer: JR | |Authenticated by: NASH GENAO MD | |Report Date/Time: 12-27-2017 18:35:12 | | | |IMPRESSION: | |1. This was a technically difficult study with suboptimal views. Patient supine. | |2. Overall left ventricular systolic function is mild-moderately impaired with, an EF betwe en 40 - 45 %. | |3. The diastolic filling pattern indicates impaired relaxation consistent with mild dysfunc tion (Grade I). | |4. The RV was not well visualized in apical views, but appears to have normal systolic func tion on limited subcostal and parasternal views. | |5. There is moderate to severe pulmonary hypertension. The right ventricular systolic pres sure (pulmonary artery systolic pressure), as measured by Doppler, is 58 - 63 mm Hg. 6. No s ignificant valvular abnormalities are noted. 7. There are several | |clinically significant changes noted in comparison to the previous echocardiographic study, done 02/26/15, as detailed below. | + + POC Glucose (12/27/2017 3:58 PM PDT) + + + + + + | Component | Value | Ref Range | Performed | Pathologist | | | | | At | Signature | + + + + + + | Glucose, | 220 (H)Comment: Testing | 65 - 99 mg/dL | EXTERNAL | | | Fingerstick | performed at [facility];[address] | | LAB | | | | [address];[place] | | | | | | [id number] | | | | + + + + + + + + | Specimen | + + | | + + + +---------+ + + | Performing | Address | City/State/Zipcode | Phone Number | | Organization | | | | + +---------+ + + | EXTERNAL LAB | | | | + +---------+ + + ECG 12 lead (12/27/2017 11:38 AM PDT) + + + + + + | Component | Value | Ref Range | Performed | Pathologist | | | | | At | Signature | + + + + + + | DIAGNOSIS: | Normal sinus rhythmLow | | EXTERNAL | | | | voltage QRSIncomplete | | LAB | | | | right bundle branch | | | | | | blockCannot rule out | | | | | | Inferior infarct (cited | | | | | | on or before | | | | | | 26-DEC-2017)Nonspecific | | | | | | ST and/or T wave | | | | | | abnormalitiesAbnormal | | | | | | ECGWhen compared with | | | | | | ECG of 27-DEC-2017 | | | | | | 00:37,Minimal criteria | | | | | | for Anterior infarct are | | | | | | no longer | | | | | | PresentNonspecific T | | | | | | wave abnormality, worse | | | | | | in Lateral | | | | | | leadsConfirmed by | | | | | | KATLYN RODAS MD ([id number]) | | | | | | on 12/27/2017 12:36:17 PM | | | | | | | | | | + + + + + + + + | Specimen | + + | | + + + + + | Narrative | Performed At | + + + | Historically converted procedure from [employer] environment | EXTERNAL LAB | + + + + +---------+ + + | Performing | Address | City/State/Zipcode | Phone Number | | Organization | | | | + +---------+ + + | EXTERNAL LAB | | | | + +---------+ + + POC Glucose (12/27/2017 11:36 AM PDT) + + + + + + | Component | Value | Ref Range | Performed | Pathologist | | | | | At | Signature | + + + + + + | Glucose, | 164 (H)Comment: Testing | 65 - 99 mg/dL | EXTERNAL | | | Fingerstick | performed at [facility];[address] | | LAB | | | | [address];[place] | | | | | | [id number] | | | | + + + + + + + + | Specimen | + + | | + + + +---------+ + + | Performing | Address | City/State/Zipcode | Phone Number | | Organization | | | | + +---------+ + + | EXTERNAL LAB | | | | + +---------+ + + MRSA NAAT (12/27/2017 11:33 AM PDT) + + | Specimen | + + | | + + + + + | Narrative | Performed At | + + + | SOURCE NARES(NOSE) MRSA | EXTERNAL LAB | | PCR NEGATIVE Testing | | | performed at [facility];[address] [place] [address];[place] [address] | | + + + + +---------+ + + | Performing | Address | City/State/Zipcode | Phone Number | | Organization | | | | + +---------+ + + | EXTERNAL LAB | | | | + +---------+ + + XR Chest 1 Vw (12/27/2017 11:25 AM PDT) + + | Specimen | + + | | + + + + + | Impressions | Performed At | + + + | Cardiomegaly. Bilateral pulmonary vascular congestion and | | | pulmonary edema. Electronically signed by Claude Owen MD on | | | 12/27/2017 11:28 AM | | + + + + + + | Narrative | Performed At | + + + | YULIANA HUMPHREYS 1940 77 years XR CHEST 1 VIEW 12/27/2017 | | | 11:25 AM INDICATION: Respiratory failure. COMPARISON: December | | | 2017 TECHNIQUE: Chest 1 view, AP view of the chest | | | FINDINGS: Left pacemaker/ICD with intact leads. Bilateral | | | pulmonary vascular congestion and pulmonary edema. Cardiomegaly. | | | Upper mediastinal contours are normal. Midline sternal wires are | | | intact. No pneumothorax. | | + + + + + | Procedure Note | + + | Wesley, Rad Conversion - 12/28/2018 5:54 AM PDT YULIANA HUMPHREYS | | 1940 | | 77 years | | XR CHEST 1 VIEW | | 12/27/2017 11:25 AM | | | | INDICATION: Respiratory failure. | | | | COMPARISON: December 26, 2017 | | | | TECHNIQUE: Chest 1 view, AP view of the chest | | | | FINDINGS: | | Left pacemaker/ICD with intact leads. | | | | Bilateral pulmonary vascular congestion and pulmonary edema. | | | | Cardiomegaly. Upper mediastinal contours are normal. Midline sternal wires are intact. | | | | No pneumothorax. | | | | IMPRESSION: | | | | Cardiomegaly. Bilateral pulmonary vascular congestion and pulmonary edema. | | | | | + + CV CARDIAC PROCEDURE (12/27/2017 10:59 AM PDT) + + | Specimen | + + | | + + + + + | Narrative | Performed At | + + + | | | | | | | DATE OF PROCEDURE: 12/29/2017. DATE OF DICTATION: | | | 12/29/2017. PROCEDURES PERFORMED: 1. Angioplasty for the venous | | | graft to the first obtuse marginal with 2 nonoverlapping | | | drug-eluting stents, 3.5 x 16 mm in the mid graft and 3.5 x 16 mm | | | Synergy in the ostium of the graft. 2. Unsuccessful attempt for | | | closure of the right common femoral arteriotomy. Controlled by | | | manual pressure. HISTORY: Mrs. Humphreys is a 77-year-old lady with a | | | known history of coronary artery disease and previous bypass surgery | | | who presented to the hospital with acute onset of chest pain, found | | | to have non-ST elevation myocardial infarction. Underwent | | | diagnostic coronary angiogram by Dr. Genao. Found to have 99 percent | | | stenosis in the venous graft to the obtuse marginal. I was asked | | | to do an intervention. Procedure details, alternatives, and | | | complications were explained for the patient. Patient finished her | | | diagnostic angiogram by Dr. Genao through the right common femoral | | | artery through a 6-Monegasque, 23 cm sheath. I walked into the room, | | | introduced myself to the patient. A new timeout was performed, and | | | through the right femoral sheath I advanced a 6-Monegasque AL1 guide. | | | That was advanced to the ascending aorta, selectively engaged the | | | venous graft to the obtuse marginal. Diagnostic angiogram was done. | | | It showed that there was subtotal occlusion of the venous graft to | | | the obtuse marginal with DYLAN 2 flow, and there is evidence of | | | moderate to severe stenosis in the ostium of the venous graft. | | | Initially the decision was to proceed with angioplasty for the mid | | | portion of the graft. Patient was given IV heparin. I tried to | | | advance an EZ filter 3.5 to 5.5 mm through the lesion but I could not | | | due to the severity of the stenosis, so I went ahead and I removed | | | that graft and then I advanced a short BMW Walker wire to the | | | obtuse marginal, and over that wire I was able to advance a SpiderFX | | | 4.0 filter over the BMW and it was advanced distal to the stenosis | | | without difficulty. The BMW wire was removed. The filter was | | | deployed. Over the filter wire, I advanced a direct stent with | | | Synergy 3.5 x 16 mm that was placed in good position, deployed at 13 | | | atmospheres. Then the balloon was removed. Angiogram showed | | | evidence of long blood clot that was caught by the filter, and so | | | over the wire I advanced an Savery 6-Monegasque retrieval device that | | | retrieved a long red clot, and then an angiogram was done showing | | | resolution of the clot. I wanted to better evaluate the proximal | | | stenosis with better injection and better flow, so I retrieved the | | | SpiderFX filter and another injection was done showing indeed moderate | | | to severe stenosis in the ostium of the venous graft so I | | | re-advanced this time the EZ filter 3.5 to 5.5 mm that went without | | | difficulty distal to the previous stent. It was deployed | | | successfully, and over the wire I advanced a Synergy 3.5 x 16 mm that | | | was placed in the proximal part of the graft covering the ostium and | | | was deployed at 13 atmospheres. Then the balloon was removed and | | | over the wire I advanced an NC Quantum 3.5 x 8 mm that first dilated | | | the mid graft stent at 16 atmospheres and then the balloon was pulled | | | back to the proximal stent and postdilated at 16 atmospheres. The | | | balloon was removed, filter was retrieved successfully. A final | | | angiogram was done showing good angiographic results, DYLAN 3 flow, no | | | complications. Over guidewire the guide was removed. Angiogram | | | was done showing good position of the sheath and the arteriotomy. | | | Decision was to do an attempt of a 6-Monegasque Perclose device, so I | | | removed the sheath and I advanced the Perclose. That was deployed, | | | but it was not successful, and unfortunately the Perclose came back | | | that it was not possible to re-advance the wire to put the sheath | | | back, so I removed the Perclose completely and manual pressure was | | | held for a total of 40 minutes initially, during which the patient | | | was monitored closely with continuous hemodynamic monitoring. The | | | patient received protamine at 30 mg to reverse the ACT. The right | | | arm was prepped for possible access for possible balloon control of | | | the bleeding, but that was not needed later on. The patient had a | | | change in mental status that was most likely secondary to CO2 | | | retention and that improved by adequate oxygenation. No reversal of | | | sedation was needed. The patient received NG tube to give | | | clopidogrel with concerns about stent clotting with the reversal of | | | the ACT. Anyway, BiPAP was applied to the patient. Hemostasis was | | | achieved with manual pressure. Patient was transferred to the ICU | | | for close monitoring in relatively stable condition. FINDINGS: | | | For hemodynamics and angiogram, please refer to Dr. Genao's note. | | | CONTRAST USED: 95 mL. ESTIMATED BLOOD LOSS: Minimal. | | | CONCLUSIONS: Successful angioplasty for the venous graft to the | | | obtuse marginal with 2 nonoverlapping drug-eluting stents, a Synergy | | | 3.5 x 16 mm in the mid portion and a Synergy 3.5 x 16 mm in the | | | ostium. RECOMMENDATIONS: 1. Aspirin 81 mg indefinitely. 2. | | | Clopidogrel 75 mg for 1 year. 3. Aggressive risk factor modification. | | | 4. Referral to cardiac rehab as an outpatient.Read by YVETTE MORRIS | | | 12/29/2017 05:33 P | | + + + + + | Procedure Note | + + | Akshat Olson - 01/04/2019 3:44 PM PDT | | | | | | DATE OF PROCEDURE: 12/29/2017. | | | | DATE OF DICTATION: 12/29/2017. | | | | PROCEDURES PERFORMED: | | 1. Angioplasty for the venous graft to the first obtuse marginal with 2 | | nonoverlapping drug-eluting stents, 3.5 x 16 mm in the mid graft and 3.5 | | x 16 mm Synergy in the ostium of the graft. | | 2. Unsuccessful attempt for closure of the right common femoral | | arteriotomy. Controlled by manual pressure. | | | | HISTORY: Mrs. Humphreys is a 77-year-old lady with a known history of coronary | | artery disease and previous bypass surgery who presented to the hospital | | with acute onset of chest pain, found to have non-ST elevation myocardial | | infarction. Underwent diagnostic coronary angiogram by Dr. Genao. Found to | | have 99 percent stenosis in the venous graft to the obtuse marginal. I was | | asked to do an intervention. Procedure details, alternatives, and | | complications were explained for the patient. | | | | Patient finished her diagnostic angiogram by Dr. Genao through the right | | common femoral artery through a 6-Monegasque, 23 cm sheath. I walked into the | | room, introduced myself to the patient. A new timeout was performed, and | | through the right femoral sheath I advanced a 6-Monegasque AL1 guide. That was | | advanced to the ascending aorta, selectively engaged the venous graft to | | the obtuse marginal. Diagnostic angiogram was done. It showed that there | | was subtotal occlusion of the venous graft to the obtuse marginal with DYLAN | | 2 flow, and there is evidence of moderate to severe stenosis in the ostium | | of the venous graft. Initially the decision was to proceed with | | angioplasty for the mid portion of the graft. Patient was given IV | | heparin. I tried to advance an EZ filter 3.5 to 5.5 mm through the lesion | | but I could not due to the severity of the stenosis, so I went ahead and I | | removed that graft and then I advanced a short BMW Walker wire to the | | obtuse marginal, and over that wire I was able to advance a SpiderFX 4.0 | | filter over the BMW and it was advanced distal to the stenosis without | | difficulty. The BMW wire was removed. The filter was deployed. | | | | Over the filter wire, I advanced a direct stent with Synergy 3.5 x 16 mm | | that was placed in good position, deployed at 13 atmospheres. Then the | | balloon was removed. Angiogram showed evidence of long blood clot that was | | caught by the filter, and so over the wire I advanced an Savery 6-Monegasque | | retrieval device that retrieved a long red clot, and then an angiogram was | | done showing resolution of the clot. I wanted to better evaluate the | | proximal stenosis with better injection and better flow, so I retrieved the | | SpiderFX filter and another injection was done showing indeed moderate to | | severe stenosis in the ostium of the venous graft so I re-advanced this | | time the EZ filter 3.5 to 5.5 mm that went without difficulty distal to the | | previous stent. It was deployed successfully, and over the wire I advanced | | a Synergy 3.5 x 16 mm that was placed in the proximal part of the graft | | covering the ostium and was deployed at 13 atmospheres. Then the balloon | | was removed and over the wire I advanced an NC Quantum 3.5 x 8 mm that | | first dilated the mid graft stent at 16 atmospheres and then the balloon | | was pulled back to the proximal stent and postdilated at 16 atmospheres. | | The balloon was removed, filter was retrieved successfully. A final | | angiogram was done showing good angiographic results, DYLAN 3 flow, no | | complications. | | | | Over guidewire the guide was removed. Angiogram was done showing good | | position of the sheath and the arteriotomy. Decision was to do an attempt | | of a 6-Monegasque Perclose device, so I removed the sheath and I advanced the | | Perclose. That was deployed, but it was not successful, and unfortunately | | the Perclose came back that it was not possible to re-advance the wire to | | put the sheath back, so I removed the Perclose completely and manual | | pressure was held for a total of 40 minutes initially, during which the | | patient was monitored closely with continuous hemodynamic monitoring. The | | patient received protamine at 30 mg to reverse the ACT. The right arm was | | prepped for possible access for possible balloon control of the bleeding, | | but that was not needed later on. The patient had a change in mental | | status that was most likely secondary to CO2 retention and that improved by | | adequate oxygenation. No reversal of sedation was needed. The patient | | received NG tube to give clopidogrel with concerns about stent clotting | | with the reversal of the ACT. Anyway, BiPAP was applied to the patient. | | Hemostasis was achieved with manual pressure. Patient was transferred to | | the ICU for close monitoring in relatively stable condition. | | | | FINDINGS: For hemodynamics and angiogram, please refer to Dr. Genao's note. | | | | CONTRAST USED: 95 mL. | | | | ESTIMATED BLOOD LOSS: Minimal. | | | | CONCLUSIONS: Successful angioplasty for the venous graft to the obtuse | | marginal with 2 nonoverlapping drug-eluting stents, a Synergy 3.5 x 16 mm | | in the mid portion and a Synergy 3.5 x 16 mm in the ostium. | | | | RECOMMENDATIONS: | | 1. Aspirin 81 mg indefinitely. | | 2. Clopidogrel 75 mg for 1 year. | | 3. Aggressive risk factor modification. | | 4. Referral to cardiac rehab as an outpatient.Read by YVETTE MORRIS MD | | 12/29/2017 05:33 P | | | | | + + CV VASCULAR PROCEDURE (12/27/2017 10:53 AM PDT) + + | Specimen | + + | | + + + + + | Narrative | Performed At | + + + | This Point of Care (POC) ultrasound image has been reviewed and | | | interpreted by the physician identified as the performing physician in | | | the associated interpretation and report. | | + + + + + | Procedure Note | + + | Akshat Olson - 01/04/2019 3:44 PM PDT This Point of Care (POC) ultrasound | | image has been reviewed andinterpreted by the physician identified as the performing | | physician in theassociated interpretation and report. | | | + + POC ISTAT, CG8, Arterial (12/27/2017 10:35 AM PDT) + + + + + + | Component | Value | Ref Range | Performed | Pathologist | | | | | At | Signature | + + + + + + | PH ART | 7.226 (LL) | 7.350 - 7.450 | EXTERNAL | | | | | | LAB | | + + + + + + | PCO2 ART | 68 (HH) | 35 - 45 mmHg | EXTERNAL | | | | | | LAB | | + + + + + + | PO2 ART | 91 | 80 - 105 mmHg | EXTERNAL | | | | | | LAB | | + + + + + + | HCO3 ART | 28 (H) | 22 - 26 mmol/L | EXTERNAL | | | | | | LAB | | + + + + + + | POC | 30 (H) | 23 - 27 mEq/L | EXTERNAL | | | APPEARANCE | | | LAB | | | UA | | | | | + + + + + + | Base | 1 | 0 - 3 mEq/L | EXTERNAL | | | Excess, | | | LAB | | | Arterial | | | | | + + + + + + | O2 SAT ART | 95 | 95 - 98 % | EXTERNAL | | | | | | LAB | | + + + + + + | Sodium, POC | 136 | 135 - 145 mEq/L | EXTERNAL | | | | | | LAB | | + + + + + + | Potassium, | 5.4 (H) | 3.5 - 5.0 mEq/L | EXTERNAL | | | POC | | | LAB | | + + + + + + | Ionized | 1.17 | 1.12 - 1.32 | EXTERNAL | | | Calcium, | | mmol/L | LAB | | | POC | | | | | + + + + + + | Glucose, | 151 (H) | 65 - 99 mg/dL | EXTERNAL | | | POC | | | LAB | | + + + + + + | Hematocrit, | 39 | 35.0 - 46.0 % | EXTERNAL | | | POC | | | LAB | | + + + + + + | Hemoglobin, | 13.3Comment: Testing | 11.6 - 15.5 | EXTERNAL | | | POC | performed at [facility];888 | g/dL | LAB | | | | [address];[place], [place] | | | | | | [address] | | | | + + + + + + + + | Specimen | + + | | + + + +---------+ + + | Performing | Address | City/State/Zipcode | Phone Number | | Organization | | | | + +---------+ + + | EXTERNAL LAB | | | | + +---------+ + + Activated clotting time (12/27/2017 10:35 AM PDT) + + + + + + | Component | Value | Ref Range | Performed | Pathologist | | | | | At | Signature | + + + + + + | Activated | 131Comment: Testing | 74 - 137 | EXTERNAL | | | Clotting | performed at [facility];888 | seconds | LAB | | | time, POC | [address];[place] | | | | | | [address] | | | | + + + + + + + + | Specimen | + + | | + + + +---------+ + + | Performing | Address | City/State/Zipcode | Phone Number | | Organization | | | | + +---------+ + + | EXTERNAL LAB | | | | + +---------+ + + POC Glucose (12/27/2017 10:21 AM PDT) + + + + + + | Component | Value | Ref Range | Performed | Pathologist | | | | | At | Signature | + + + + + + | Glucose, | 117 (H)Comment: Testing | 65 - 99 mg/dL | EXTERNAL | | | Fingerstick | performed at [facility];[address] | | LAB | | | | [address]es;[place] | | | | | | [address] | | | | + + + + + + + + | Specimen | + + | | + + + +---------+ + + | Performing | Address | City/State/Zipcode | Phone Number | | Organization | | | | + +---------+ + + | EXTERNAL LAB | | | | + +---------+ + + Activated clotting time (12/27/2017 9:55 AM PDT) + + + + + + | Component | Value | Ref Range | Performed | Pathologist | | | | | At | Signature | + + + + + + | Activated | 224 (H)Comment: Testing | 74 - 137 | EXTERNAL | | | Clotting | performed at [facility];888 | seconds | LAB | | | time, POC | [address];[place], [place] | | | | | | [address] | | | | + + + + + + + + | Specimen | + + | | + + + +---------+ + + | Performing | Address | City/State/Zipcode | Phone Number | | Organization | | | | + +---------+ + + | EXTERNAL LAB | | | | + +---------+ + + Activated clotting time (12/27/2017 9:35 AM PDT) + + + + + + | Component | Value | Ref Range | Performed | Pathologist | | | | | At | Signature | + + + + + + | Activated | 241 (H)Comment: Testing | 74 - 137 | EXTERNAL | | | Clotting | performed at [facility];[address] | seconds | LAB | | | time, POC | [address];[place] | | | | | | [address] | | | | + + + + + + + + | Specimen | + + | | + + + +---------+ + + | Performing | Address | City/State/Zipcode | Phone Number | | Organization | | | | + +---------+ + + | EXTERNAL LAB | | | | + +---------+ + + Activated clotting time (12/27/2017 9:10 AM PDT) + + + + + + | Component | Value | Ref Range | Performed | Pathologist | | | | | At | Signature | + + + + + + | Activated | 208 (H)Comment: Testing | 74 - 137 | EXTERNAL | | | Clotting | performed at [facility];888 | seconds | LAB | | | time, POC | [address];[place] | | | | | | [address] | | | | + + + + + + + + | Specimen | + + | | + + + +---------+ + + | Performing | Address | City/State/Zipcode | Phone Number | | Organization | | | | + +---------+ + + | EXTERNAL LAB | | | | + +---------+ + + CV CARDIAC PROCEDURE (12/27/2017 9:00 AM PDT) + + | Specimen | + + | | + + + + + | Narrative | Performed At | + + + | | | | | | | PROCEDURE PERFORMED: Coronary angiogram with grafts and left internal | | | mammary angiography. INDICATION: Acute non-STEMI in this | | | patient with known coronary artery disease , history of coronary | | | bypass surgery. PROCEDURE REPORT: After informed consent was | | | obtained, she was brought to the cardiac catheterization laboratory | | | and prepped and draped in sterile fashion. She was given moderate | | | anesthesia/sedation with Versed 1 mg IV and Fentanyl 25 mcg IV. The | | | right femoral area was prepped and draped in sterile fashion, and | | | had to be redraped as her common femoral artery was actually much | | | higher than it would appear from visual evaluation, and had to be | | | located using a hemostat clip as a marker over the head of the right | | | femoral prosthesis. Vascular access was achieved using | | | ultrasonographic guidance, and good arterial blood flow was obtained | | | on the first attempt. The guidewire was passed and a 6-Monegasque | | | introducer sheath was inserted into the right common femoral artery. | | | A 0.035-inch J-tip guidewire was used to advance a 5-Monegasque FL4 via | | | the aortic root where it was used to perform selective angiography | | | of the [place] left coronary circulation in multiple views in standard | | | fashion. Via guidewire exchange, a 5-Monegasque FR4 catheter was | | | advanced to the aortic root, but failed to locate the ostium of the | | | [place] right coronary artery, which is presumed to be occluded. | | | This catheter was then used to perform selective angiography of all | | | three vein grafts, as detailed below. The catheter was then pulled | | | back to the aortic arch and advanced into the left subclavian artery. | | | However, it could not engage the ostium of the left internal mammary | | | artery, and was exchanged over a 265-cm, 0.035-inch J-tip guidewire | | | for a 5-Monegasque ANAMARIA catheter, which was used to perform subselective | | | angiography of the left internal mammary artery, which was seen to | | | have been left untouched and not used as a bypass conduit. The | | | catheter was then removed carefully over the guidewire, and the | | | patient remained on the table, awaiting subsequent intervention in | | | the vein graft to the obtuse marginal branch. Please see the | | | separate report, dictated by Yvette Morris MD, for details regarding | | | this. For the current procedure, there were no complications and | | | she tolerated it well. ESTIMATED BLOOD LOSS: Less than 10 mL. | | | CONTRAST: 125 mL of Isovue. RESULTS: Fluoroscopy reveals | | | appropriate sternal wires and clips from her previous CABG. There | | | are three vein graft markers in the ascending aorta. The patient had | | | a reported history of having had a 4-vessel CABG, but appears that | | | it was only a 3-vessel CABG. Her AICD is easily visible on | | | fluoroscopy. [place] CORONARY ARTERIES: 1. Left Main: This is a | | | large vessel, which is normal in its proximal and mid-segments. The | | | mid to distal segment tapers to a 40-50% concentric stenosis before | | | its bifurcation. 2. Left Anterior Descending: This at one time was | | | a large, type 2 vessel. The proximal segment is free of significant | | | disease. The mid-segment is occluded just after the first diagonal | | | and a large first septal lime mixer tender branch. This septal lime mixer tender | | | branch is normal. The first diagonal is a small to medium-sized | | | vessel with moderate diffuse disease, approaching 50% luminal | | | reduction in the ostial to proximal segment. The distal segment is | | | tortuous. The mid to distal portion of LAD is visualized via runoff | | | from the saphenous vein graft, described below, and is widely | | | patent. There are rryk-it-[id number] collaterals to the third obtuse | | | marginal branch. A small distal diagonal branch is given off from | | | the mid-segment, with no other diagonal branches visualized. 3. Left | | | Circumflex: This is a medium-sized, nondominant vessel. There is | | | mild to moderate diffuse disease from the ostium through the proximal | | | segment approaching a 50% luminal diameter reduction. The | | | mid-segment has a 70-80% stenosis prior to the origin of a large | | | third obtuse marginal branch, which is patent and contains mild | | | competitive flow from the vein graft. The small first and second | | | obtuse marginal branches are free of disease. 4. Right Coronary | | | Artery: This is only visualized from the runoff from the vein | | | graft, and is widely patent beyond the anastomosis at the crux. It | | | is described below. GRAFTS: 1. Saphenous vein graft to the left | | | anterior descending artery: This arises from the middle of the | | | three markers in the ascending aorta. It is widely patent and free | | | of disease. The distal anastomosis has no more than 25-30% | | | concentric stenosis. The target vessel beyond the graft is widely | | | patent and free of disease, with DYLAN-3 flow. 2. Saphenous vein graft | | | to the distal RCA: This arises from the inferior-right most of the | | | three graft markers in the ascending aorta. The proximal | | | anastomosis, shaft and distal anastomosis are widely patent. The | | | distal anastomosis is into the crux of the right coronary artery, and | | | is widely patent. Via distal runoff, the posterior descending | | | artery is seen to be a medium-sized vessel with no evidence of | | | disease. The posterolateral ventricular branch is a large vessel with | | | very mild diffuse disease distally, but the proximal and | | | mid-segments show no evidence of disease. There is DYLAN grade 1 | | | flow. 3. Saphenous vein graft to the third obtuse marginal branch: | | | The ostium of this graft, which arises from the superior of the | | | three graft markers, contains a long 90-95% hazy stenosis. The | | | mid-shaft has a 90-95% eccentric stenosis. Beyond the stenosis, | | | there is decreased flow, DYLAN grade 2 with dye streaming and | | | haziness, suggesting possible thrombus. The distal anastomosis is | | | widely patent. Left internal mammary artery: This is a large | | | vessel and was not used as a bypass conduit. It is free of disease. | | | CONCLUSIONS: 1. Severe [place] 3-vessel coronary artery disease | | | with an occluded left anterior descending artery and presumed total | | | occlusion of the proximal [place] right coronary artery. 2. Patent | | | saphenous vein grat to the left anterior descending artery. 3. Patent | | | saphenous vein graft to the distal right coronary artery. 4. Severe | | | disease in two places in the saphenous vein graft to the third obtuse | | | marginal branch. 5. The ESTES was not used as a bypass conduit. There | | | are only 3 saphenous bypass grafts. PLAN: Percutaneous coronary | | | intervention in the vein graft to the third obtuse marginal branch. | | | Read by NASH GENAO MD 12/27/2017 12:46 P Electronically | | | signed by Nash Genao MD on 12/28/2017 6:17 PM | | + + + + + | Procedure Note | + + | Akshat Olson Conversion - 01/04/2019 3:44 PM PDT | | | | PROCEDURE PERFORMED: Coronary angiogram with grafts and left internal | | mammary angiography. | | | | INDICATION: Acute non-STEMI in this patient with known coronary artery | | disease , history of coronary bypass surgery. | | | | PROCEDURE REPORT: After informed consent was obtained, she was brought to | | the cardiac catheterization laboratory and prepped and draped in sterile | | fashion. She was given moderate anesthesia/sedation with Versed 1 mg IV | | and Fentanyl 25 mcg IV. The right femoral area was prepped and draped in | | sterile fashion, and had to be redraped as her common femoral artery was actually | | much higher than it would appear from visual evaluation, and had to be | | located using a hemostat clip as a marker over the head of the right | | femoral prosthesis. Vascular access was achieved using ultrasonographic | | guidance, and good arterial blood flow was obtained on the first | | attempt. The guidewire was passed and a 6-Monegasque introducer sheath was | | inserted into the right common femoral artery. A 0.035-inch J-tip | | guidewire was used to advance a 5-Monegasque FL4 via the aortic root where it | | was used to perform selective angiography of the [place] left coronary circulation | | in multiple views in standard fashion. Via guidewire exchange, a 5-Monegasque | | FR4 catheter was advanced to the aortic root, but failed to locate the | | ostium of the [place] right coronary artery, which is presumed to be | | occluded. This catheter was then used to perform selective angiography of | | all three vein grafts, as detailed below. The catheter was then pulled | | back to the aortic arch and advanced into the left subclavian artery. | | However, it could not engage the ostium of the left internal mammary | | artery, and was exchanged over a 265-cm, 0.035-inch J-tip guidewire for a | | 5-Monegasque ANAMARIA catheter, which was used to perform subselective angiography | | of the left internal mammary artery, which was seen to have been left | | untouched and not used as a bypass conduit. The catheter was then removed | | carefully over the guidewire, and the patient remained on the table, | | awaiting subsequent intervention in the vein graft to the obtuse marginal | | branch. Please see the separate report, dictated by Yvette Morris MD, for | | details regarding this. For the current procedure, there were no | | complications and she tolerated it well. | | | | ESTIMATED BLOOD LOSS: Less than 10 mL. | | | | CONTRAST: 125 mL of Isovue. | | | | RESULTS: Fluoroscopy reveals appropriate sternal wires and clips from her previous | | CABG. There are three vein graft markers in the ascending aorta. The patient had a | | reported history of having had a 4-vessel CABG, but appears that it was only a | | 3-vessel CABG. Her AICD is easily visible on fluoroscopy. | | | | [place] CORONARY ARTERIES: | | 1. Left Main: This is a large vessel, which is normal in its proximal and | | mid-segments. The mid to distal segment tapers to a 40-50% concentric | | stenosis before its bifurcation. | | 2. Left Anterior Descending: This at one time was a large, type 2 vessel. | | The proximal segment is free of significant disease. The mid-segment is | | occluded just after the first diagonal and a large first septal | | lime mixer tender branch. This septal lime mixer tender branch is normal. The first | | diagonal is a small to medium-sized vessel with moderate diffuse | | disease, approaching 50% luminal reduction in the ostial to proximal | | segment. The distal segment is tortuous. The mid to distal portion of LAD is | | visualized via runoff from the saphenous vein graft, described below, | | and is widely patent. There are scgo-ui-pogc collaterals to the third | | obtuse marginal branch. A small distal diagonal branch is given off | | from the mid-segment, with no other diagonal branches visualized. | | 3. Left Circumflex: This is a medium-sized, nondominant vessel. There is | | mild to moderate diffuse disease from the ostium through the proximal | | segment approaching a 50% luminal diameter reduction. The mid-segment | | has a 70-80% stenosis prior to the origin of a large third obtuse | | marginal branch, which is patent and contains mild competitive flow from | | the vein graft. The small first and second obtuse marginal branches are | | free of disease. | | 4. Right Coronary Artery: This is only visualized from the runoff from the | | vein graft, and is widely patent beyond the anastomosis at the crux. It | | is described below. | | | | GRAFTS: | | 1. Saphenous vein graft to the left anterior descending artery: This | | arises from the middle of the three markers in the ascending aorta. It | | is widely patent and free of disease. The distal anastomosis has no | | more than 25-30% concentric stenosis. The target vessel beyond the | | graft is widely patent and free of disease, with DYLAN-3 flow. | | 2. Saphenous vein graft to the distal RCA: This arises from the | | inferior-right most of the three graft markers in the ascending aorta. The | | proximal anastomosis, shaft and distal anastomosis are widely patent. | | The distal anastomosis is into the crux of the right coronary artery, | | and is widely patent. Via distal runoff, the posterior descending | | artery is seen to be a medium-sized vessel with no evidence of disease. | | The posterolateral ventricular branch is a large vessel with very mild | | diffuse disease distally, but the proximal and mid-segments show no | | evidence of disease. There is DYLAN grade 1 flow. | | 3. Saphenous vein graft to the third obtuse marginal branch: The ostium of | | this graft, which arises from the superior of the three graft markers, | | contains a long 90-95% hazy stenosis. The mid-shaft has a 90-95% | | eccentric stenosis. Beyond the stenosis, there is decreased flow, DYLAN | | grade 2 with dye streaming and haziness, suggesting possible thrombus. The | | distal anastomosis is widely patent. | | | | Left internal mammary artery: This is a large vessel and was not used as a | | bypass conduit. It is free of disease. | | | | CONCLUSIONS: | | 1. Severe aniak 3-vessel coronary artery disease with an occluded left | | anterior descending artery and presumed total occlusion of the proximal | | aniak right coronary artery. | | 2. Patent saphenous vein grat to the left anterior descending artery. | | 3. Patent saphenous vein graft to the distal right coronary artery. | | 4. Severe disease in two places in the saphenous vein graft to the third | | obtuse marginal branch. | | 5. The ESTES was not used as a bypass conduit. There are only 3 saphenous bypass grafts. | | | | PLAN: Percutaneous coronary intervention in the vein graft to the third | | obtuse marginal branch. | | | | Read by NASH GENAO MD 12/27/2017 12:46 P | | | | | + + PTT (12/27/2017 6:51 AM PDT) + + + + + + | Component | Value | Ref Range | Performed | Pathologist | | | | | At | Signature | + + + + + + | aPTT, | 42 (H)Comment: Testing | 23 - 32 seconds | EXTERNAL | | | Patient | performed at [facility];[address] | | LAB | | | | [address];[place], [place] | | | | | | [address] | | | | + + + + + + + + | Specimen | + + | Blood specimen | | (specimen) | + + + +---------+ + + | Performing | Address | City/State/Zipcode | Phone Number | | Organization | | | | + +---------+ + + | EXTERNAL LAB | | | | + +---------+ + + POC Glucose (12/27/2017 5:45 AM PDT) + + + + + + | Component | Value | Ref Range | Performed | Pathologist | | | | | At | Signature | + + + + + + | Glucose, | 152 (H)Comment: Testing | 65 - 99 mg/dL | EXTERNAL | | | Fingerstick | performed at [facility];[address] | | LAB | | | | [address];[place] | | | | | | [address] | | | | + + + + + + + + | Specimen | + + | | + + + +---------+ + + | Performing | Address | City/State/Zipcode | Phone Number | | Organization | | | | + +---------+ + + | EXTERNAL LAB | | | | + +---------+ + + Troponin I (12/27/2017 4:58 AM PDT) + + + + + + | Component | Value | Ref Range | Performed | Pathologist | | | | | At | Signature | + + + + + + | Troponin I, | 29.9 ()Comment: 0.00 | 0.00 - 0.10 | EXTERNAL | | | Qual | to 0.10 CONSISTENT | ng/mL | LAB | | | | WITH NORMAL | | | | | | POPULATION0.11 to 0.60 | | | | | | CONSISTENT WITH | | | | | | INCREASED RISK FOR | | | | | | ADVERSE OUTCOMES> 0.60 | | | | | | CONSISTENT | | | | | | WITH WHO CRITERIA FOR | | | | | | ACUTE [place] CALLED NURSING | | | | | | UNITREAD BACK RESULTS | | | | | | VERIFIEDMERLENE Meehan IN 4RP | | | | | | AT 0603 BY TDTesting | | | | | | performed at [facility] | | | | | | [address] [facility];[place], [place] | | | | | | [address] | | | | + + + + + + + + | Specimen | + + | Blood specimen | | (specimen) | + + + +---------+ + + | Performing | Address | City/State/Zipcode | Phone Number | | Organization | | | | + +---------+ + + | EXTERNAL LAB | | | | + +---------+ + + External Lab: CBC (12/27/2017 4:58 AM PDT) + + + + + + | Component | Value | Ref Range | Performed | Pathologist | | | | | At | Signature | + + + + + + | WBC | 8.72 | 3.80 - 11.00 | EXTERNAL | | | | | K/uL | LAB | | + + + + + + | Non- | 3.68 (L) | 3.70 - 5.10 | EXTERNAL | | | Red Blood | | M/uL | LAB | | | Cells | | | | | | Counted | | | | | + + + + + + | Hemoglobin | 12.8 | 11.3 - 15.5 | EXTERNAL | | | | | g/dL | LAB | | + + + + + + | Hematocrit, | 37.2 | 34.0 - 46.0 % | EXTERNAL | | | POC | | | LAB | | + + + + + + | MCV | 101.0 (H) | 80.0 - 100.0 fl | EXTERNAL | | | | | | LAB | | + + + + + + | MCH | 34.7 (H) | 27.0 - 34.0 pg | EXTERNAL | | | | | | LAB | | + + + + + + | MCHC | 34.3 | 32.0 - 35.5 | EXTERNAL | | | | | g/dL | LAB | | + + + + + + | RDW-CV | 52.1 | 37 - 53 fl | EXTERNAL | | | | | | LAB | | + + + + + + | Platelet | 143 (L) | 150 - 400 K/uL | EXTERNAL | | | Count | | | LAB | | | Plasma | | | | | + + + + + + | MPV | 8.5 | fl | EXTERNAL | | | | | | LAB | | + + + + + + | Differentia | AUTOMATED | | EXTERNAL | | | l Type | | | LAB | | + + + + + + | % Segmented | 74.87 | % | EXTERNAL | | | | | | LAB | | | Neutrophils | | | | | + + + + + + | % | 15.38 | % | EXTERNAL | | | Lymphocytes | | | LAB | | + + + + + + | % Monocytes | 7.15 | % | EXTERNAL | | | | | | LAB | | + + + + + + | % | 1.85 | % | EXTERNAL | | | Eosinophils | | | LAB | | + + + + + + | % Basophils | 0.75 | % | EXTERNAL | | | | | | LAB | | + + + + + + | Absolute | 6.53 | 1.90 - 7.40 | EXTERNAL | | | Segmented | | K/uL | LAB | | | Neutrophils | | | | | + + + + + + | Absolute | 1.34 | 1.00 - 3.90 | EXTERNAL | | | Lymphocytes | | K/uL | LAB | | + + + + + + | Absolute | 0.62 | 0.00 - 0.80 | EXTERNAL | | | Monocytes | | K/uL | LAB | | + + + + + + | Absolute | 0.16 | 0.00 - 0.50 | EXTERNAL | | | Eosinophils | | K/uL | LAB | | + + + + + + | Absolute | 0.07Comment: Testing | 0.00 - 0.10 | EXTERNAL | | | Basophils | performed at [facility], [address] | K/uL | LAB | | | | [address], | | | | | | [place] [address] | | | | + + + + + + + + | Specimen | + + | Blood specimen | | (specimen) | + + + +---------+ + + | Performing | Address | City/State/Zipcode | Phone Number | | Organization | | | | + +---------+ + + | EXTERNAL LAB | | | | + +---------+ + + TSH (12/27/2017 4:58 AM PDT) + + + + + + | Component | Value | Ref Range | Performed | Pathologist | | | | | At | Signature | + + + + + + | TSH | 1.050Comment: Testing | 0.450 - 5.100 | EXTERNAL | | | | performed at [facility], [address] | uIU/mL | LAB | | | | [address], | | | | | | [place] [address] | | | | + + + + + + + + | Specimen | + + | Blood specimen | | (specimen) | + + + +---------+ + + | Performing | Address | City/State/Zipcode | Phone Number | | Organization | | | | + +---------+ + + | EXTERNAL LAB | | | | + +---------+ + + Phosphorus (12/27/2017 4:58 AM PDT) + + + + + + | Component | Value | Ref Range | Performed | Pathologist | | | | | At | Signature | + + + + + + | PHOSPHORUS | 4.5Comment: Testing | 2.3 - 4.8 mg/dL | EXTERNAL | | | | performed at [facility], [address] | | LAB | | | | [address], | | | | | | [place] [address] | | | | + + + + + + + + | Specimen | + + | Blood specimen | | (specimen) | + + + +---------+ + + | Performing | Address | City/State/Zipcode | Phone Number | | Organization | | | | + +---------+ + + | EXTERNAL LAB | | | | + +---------+ + + Magnesium (12/27/2017 4:58 AM PDT) + + + + + + | Component | Value | Ref Range | Performed | Pathologist | | | | | At | Signature | + + + + + + | Magnesium | 2.1Comment: Testing | 1.7 - 2.4 mg/dL | EXTERNAL | | | | performed at [facility], [address] | | LAB | | | | [address], | | | | | | [place] [address] | | | | + + + + + + + + | Specimen | + + | Blood specimen | | (specimen) | + + + +---------+ + + | Performing | Address | City/State/Zipcode | Phone Number | | Organization | | | | + +---------+ + + | EXTERNAL LAB | | | | + +---------+ + + Hemoglobin A1C (12/27/2017 4:58 AM PDT) + + + + + + | Component | Value | Ref Range | Performed | Pathologist | | | | | At | Signature | + + + + + + | Hemoglobin | 6.3 (H)Comment: The | 4.0 - 6.0 % | EXTERNAL | | | A1c | [place] [employer] | | LAB | | | | Association considers a | | | | | | hemoglobin A1c result of | | | | | | <7.0% to be the goal of | | | | | | diabetic therapy. | | | | | | When results are | | | | | | consistently >8.0%, the | | | | | | ADA suggests | | | | | | reevaluation of the | | | | | | treatment regimen. The | | | | | | testing method used is | | | | | | certified traceable to | | | | | | the Diabetes Control and | | | | | | Complications Trial | | | | | | reference method. | | | | + + + + + + | Glycohemogl | 134Comment: The ADA | mg/dL | EXTERNAL | | | obin | considers an eAG result | | LAB | | | (GHb),Total | of LT 154 mg/dL to be | | | | | | the goal of diabetic | | | | | | therapy. Estimated | | | | | | Average Glucose | | | | | | calculated from | | | | | | hemoglobin A1c by use of | | | | | | the ADA recommended | | | | | | formula.Testing | | | | | | performed at [facility], [address] | | | | | | [facility], | | | | | | [place] [address] | | | | + + + + + + + + | Specimen | + + | Blood specimen | | (specimen) | + + + +---------+ + + | Performing | Address | City/State/Zipcode | Phone Number | | Organization | | | | + +---------+ + + | EXTERNAL LAB | | | | + +---------+ + + Lipid Panel (12/27/2017 4:58 AM PDT) + + + + + + | Component | Value | Ref Range | Performed | Pathologist | | | | | At | Signature | + + + + + + | Cholesterol | 121 | mg/dL | EXTERNAL | | | | | | LAB | | + + + + + + | Triglycerid | 134 | mg/dL | EXTERNAL | | | es | | | LAB | | + + + + + + | HDL | 26 (L) | mg/dL | EXTERNAL | | | | | | LAB | | + + + + + + | LDL, | 68Comment: Testing | mg/dL | EXTERNAL | | | Calculated | performed at [facility], [address] | | LAB | | | | [address], | | | | | | [place] [address] | | | | + + + + + + + + | Specimen | + + | Blood specimen | | (specimen) | + + + +---------+ + + | Performing | Address | City/State/Zipcode | Phone Number | | Organization | | | | + +---------+ + + | EXTERNAL LAB | | | | + +---------+ + + Comprehensive Metabolic Panel (12/27/2017 4:58 AM PDT) + + + + + + | Component | Value | Ref Range | Performed | Pathologist | | | | | At | Signature | + + + + + + | Na | 139 | 135 - 145 | EXTERNAL | | | | | mmol/L | LAB | | + + + + + + | K | 4.9 | 3.5 - 4.9 | EXTERNAL | | | | | mmol/L | LAB | | + + + + + + | Cl | 104 | 99 - 109 mmol/L | EXTERNAL | | | | | | LAB | | + + + + + + | CO2 | 27 | 23 - 32 mmol/L | EXTERNAL | | | | | | LAB | | + + + + + + | Anion Gap | 13 | 5 - 20 mmol/L | EXTERNAL | | | | | | LAB | | + + + + + + | Glucose, | 156 (H) | 65 - 99 mg/dL | EXTERNAL | | | Fasting | | | LAB | | + + + + + + | BUN | 16 | 8 - 25 mg/dL | EXTERNAL | | | | | | LAB | | + + + + + + | Creatinine | 1.1 (H) | 0.50 - 1.00 | EXTERNAL | | | | | mg/dL | LAB | | + + + + + + | BUN/Creatin | 15 | | EXTERNAL | | | ine Ratio | | | LAB | | + + + + + + | Calcium | 8.4 (L) | 8.5 - 10.5 | EXTERNAL | | | | | mg/dL | LAB | | + + + + + + | Protein, | 6.3 | 6.3 - 8.2 g/dL | EXTERNAL | | | Total | | | LAB | | + + + + + + | Albumin | 2.8 (L) | 3.3 - 4.8 g/dL | EXTERNAL | | | | | | LAB | | + + + + + + | Globulin | 3.5 | 1.3 - 4.9 g/dL | EXTERNAL | | | | | | LAB | | + + + + + + | A/G Ratio | 0.8 (L) | 1.0 - 2.4 | EXTERNAL | | | | | | LAB | | + + + + + + | Bilirubin | 0.5 | 0.1 - 1.5 mg/dL | EXTERNAL | | | Total | | | LAB | | + + + + + + | ALP, | 72 | 35 - 115 U/L | EXTERNAL | | | External | | | LAB | | + + + + + + | AST | 135 (H) | 10 - 45 U/L | EXTERNAL | | | | | | LAB | | + + + + + + | ALT | 43 | 10 - 65 U/L | EXTERNAL | | | | | | LAB | | + + + + + + | Estimated | 48 (L)Comment: GFR <60: | mL/min/1.73m2 | EXTERNAL | | | GFR | CHRONIC KIDNEY DISEASE, | | LAB | | | | IF FOUND OVER A 3 MONTH | | | | | | PERIOD.GFR <15: KIDNEY | | | | | | FAILURE.FOR | | | | | | AMERICANS, MULTIPLY THE | | | | | | CALCULATED GFR BY | | | | | | 1.210.This eGFR is | | | | | | calculated using the | | | | | | MDRD IDMS traceable | | | | | | equation.Testing | | | | | | performed at [facility], [address] | | | | | | [facility], | | | | | | [place] [address] | | | | + + + + + + + + | Specimen | + + | Blood specimen | | (specimen) | + + + +---------+ + + | Performing | Address | City/State/Zipcode | Phone Number | | Organization | | | | + +---------+ + + | EXTERNAL LAB | | | | + +---------+ + + ECG 12 lead (12/27/2017 12:37 AM PDT) + + + + + + | Component | Value | Ref Range | Performed | Pathologist | | | | | At | Signature | + + + + + + | DIAGNOSIS: | Normal sinus rhythm | | EXTERNAL | | | | Nonspecific atrial | | LAB | | | | abnormalityLow voltage | | | | | | QRSIncomplete right | | | | | | bundle branch | | | | | | blockCannot rule out | | | | | | Inferior infarct (cited | | | | | | on or before | | | | | | 26-DEC-2017)Cannot rule | | | | | | out Anterior infarct | | | | | | (cited on or before | | | | | | 26-DEC-2017)Nonspecific | | | | | | ST and/or T wave | | | | | | abnormalitiesAbnormal | | | | | | ECGWhen compared with | | | | | | ECG of 26-DEC-2017 | | | | | | 16:55,No significant | | | | | | change was | | | | | | foundConfirmed by | | | | | | KATLYN RODAS MD ([id number]) | | | | | | on 12/27/2017 9:07:05 AM | | | | + + + + + + + + | Specimen | + + | | + + + + + | Narrative | Performed At | + + + | Historically converted procedure from [facility] Epic environment | EXTERNAL LAB | + + + + +---------+ + + | Performing | Address | City/State/Zipcode | Phone Number | | Organization | | | | + +---------+ + + | EXTERNAL LAB | | | | + +---------+ + + Troponin I (12/26/2017 11:41 PM PDT) + + + + + + | Component | Value | Ref Range | Performed | Pathologist | | | | | At | Signature | + + + + + + | Troponin I, | 20.7 ()Comment: 0.00 | 0.00 - 0.10 | EXTERNAL | | | Qual | to 0.10 CONSISTENT | ng/mL | LAB | | | | WITH NORMAL | | | | | | POPULATION0.11 to 0.60 | | | | | | CONSISTENT WITH | | | | | | INCREASED RISK FOR | | | | | | ADVERSE OUTCOMES> 0.60 | | | | | | CONSISTENT | | | | | | WITH WHO CRITERIA FOR | | | | | | ACUTE [place] CALLED TO | | | | | | BANDAR Mccormick RN/SOCRATES AT | | | | | | 0030 BY MWREAD BACK | | | | | | RESULTS VERIFIEDTesting | | | | | | performed at [facility] | | | | | | [facility];[place], [place] | | | | | | [address] | | | | + + + + + + + + | Specimen | + + | Blood specimen | | (specimen) | + + + +---------+ + + | Performing | Address | City/State/Zipcode | Phone Number | | Organization | | | | + +---------+ + + | EXTERNAL LAB | | | | + +---------+ + + PTT (12/26/2017 11:41 PM PDT) + + + + + + | Component | Value | Ref Range | Performed | Pathologist | | | | | At | Signature | + + + + + + | aPTT, | 37 (H)Comment: Testing | 23 - 32 seconds | EXTERNAL | | | Patient | performed at [facility];[address] | | LAB | | | | [address];[place] | | | | | | [address] | | | | + + + + + + + + | Specimen | + + | Blood specimen | | (specimen) | + + + +---------+ + + | Performing | Address | City/State/Zipcode | Phone Number | | Organization | | | | + +---------+ + + | EXTERNAL LAB | | | | + +---------+ + + POC Glucose (12/26/2017 9:22 PM PDT) + + + + + + | Component | Value | Ref Range | Performed | Pathologist | | | | | At | Signature | + + + + + + | Glucose, | 147 (H)Comment: Testing | 65 - 99 mg/dL | EXTERNAL | | | Fingerstick | performed at [facility];[address] | | LAB | | | | [address];[place], [place] | | | | | | [address] | | | | + + + + + + + + | Specimen | + + | | + + + +---------+ + + | Performing | Address | City/State/Zipcode | Phone Number | | Organization | | | | + +---------+ + + | EXTERNAL LAB | | | | + +---------+ + + XR Chest 1 Vw (12/26/2017 8:35 PM PDT) + + | Specimen | + + | | + + + + + | Impressions | Performed At | + + + | 1. Median sternotomy with prominent cardiac enlargement and | | | sequential pacer. 2. Suspected CHF with interstitial edema, perhaps | | | with subtle left effusion. | | + + + + + + | Narrative | Performed At | + + + | HISTORY: Chest pain. NSTEMI COMPARISON: None. TECHNIQUE: | | | AP portable film of the chest at 2031 hours FINDINGS: The heart | | | size is prominently enlarged post median sternotomy with sequential | | | AICD over the left chest wall. Pulmonary venous congestion. Central | | | interstitial prominence. I suspect a subtle left pleural effusion. | | | Technical limitation due to patient body habitus. | | + + + + + | Procedure Note | + + | Akshat Olson Conversion - 12/28/2018 5:54 AM PDT HISTORY:Chest pain. NSTEMI | | COMPARISON:None. TECHNIQUE:AP portable film of the chest at 2031 hours FINDINGS:The | | heart size is prominently enlarged post median sternotomy with sequential AICD over the | | left chest wall. Pulmonary venous congestion. Central interstitial prominence. I suspect | | a subtle left pleural effusion. Technical limitation due to patient body habitus. | | IMPRESSION: 1. Median sternotomy with prominent cardiac enlargement and sequential | | pacer.2. Suspected CHF with interstitial edema, perhaps with subtle left effusion. | | | | | |FINDINGS: | |The heart size is prominently enlarged post median sternotomy with sequential AICD over the left chest wall. Pulmonary venous congestion. Central interstitial prominence. I suspect a subtle left pleural effusion. | |Technical limitation due to patient body | |habitus. | | | |IMPRESSION: | |1. Median sternotomy with prominent cardiac enlargement and sequential pacer. | |2. Suspected CHF with interstitial edema, perhaps with subtle left effusion. | | | | | + + ECG 12 lead (12/26/2017 4:55 PM PDT) + + + + + + | Component | Value | Ref Range | Performed | Pathologist | | | | | At | Signature | + + + + + + | DIAGNOSIS: | Normal sinus rhythmLow | | EXTERNAL | | | | voltage QRSRight bundle | | LAB | | | | branch blockAbnormal | | | | | | ECGWhen compared with | | | | | | ECG of 18-FEB-2015 | | | | | | 14:00,rbbb is | | | | | | newConfirmed by LETTY | | | | | | ZACKARY CALIX ([id number]) on | | | | | | 12/27/2017 12:12:43 PM | | | | + + + + + + + + | Specimen | + + | | + + + + + | Narrative | Performed At | + + + | Historically converted procedure from [facility] Epic environment | EXTERNAL LAB | + + + + +---------+ + + | Performing | Address | City/State/Zipcode | Phone Number | | Organization | | | | + +---------+ + + | EXTERNAL LAB | | | | + +---------+ + + Troponin I (12/26/2017 4:45 PM PDT) + + + + + + | Component | Value | Ref Range | Performed | Pathologist | | | | | At | Signature | + + + + + + | Troponin I, | 1.84 ()Comment: 0.00 | 0.00 - 0.10 | EXTERNAL | | | Qual | to 0.10 CONSISTENT | ng/mL | LAB | | | | WITH NORMAL | | | | | | POPULATION0.11 to 0.60 | | | | | | CONSISTENT WITH | | | | | | INCREASED RISK FOR | | | | | | ADVERSE OUTCOMES> 0.60 | | | | | | CONSISTENT | | | | | | WITH WHO CRITERIA FOR | | | | | | ACUTE [place] CALLED | | | | | | RESULTSREAD BACK RESULTS | | | | | | PAKO Franklin/SOCRATES AT | | | | | | 1751 BY MAHTesting | | | | | | performed at [facility];[address] | | | | | | [address] [facility];[place], [place] | | | | | | [address] | | | | + + + + + + + + | Specimen | + + | Blood specimen | | (specimen) | + + + +---------+ + + | Performing | Address | City/State/Zipcode | Phone Number | | Organization | | | | + +---------+ + + | EXTERNAL LAB | | | | + +---------+ + + PTT (12/26/2017 4:45 PM PDT) + + + + + + | Component | Value | Ref Range | Performed | Pathologist | | | | | At | Signature | + + + + + + | aPTT, | 45 (H)Comment: Testing | 23 - 32 seconds | EXTERNAL | | | Patient | performed at [facility];[address] | | LAB | | | | [address];[place], [place] | | | | | | [address] | | | | + + + + + + + + | Specimen | + + | Blood specimen | | (specimen) | + + + +---------+ + + | Performing | Address | City/State/Zipcode | Phone Number | | Organization | | | | + +---------+ + + | EXTERNAL LAB | | | | + +---------+ + + Natalieime INR (12/26/2017 4:45 PM PDT) + + + + + + | Component | Value | Ref Range | Performed | Pathologist | | | | | At | Signature | + + + + + + | INR | 1.0Comment: REFERENCE | | EXTERNAL | | | | RANGE:0.9 - 1.2 | | LAB | | | | NON-ANTICOAGULATED2.0 | | | | | | - 3.0 ALL OTHER | | | | | | THERAPEUTIC | | | | | | INDICATIONS2.5 - 3.5 | | | | | | MECHANICAL HEART VALVES, | | | | | | RECURRENT OR SYSTEMIC | | | | | | EMBOLISMTesting | | | | | | performed at [facility] | | | | | | [address] [facility];[place], [place] | | | | | | [address] | | | | + + + + + + + + | Specimen | + + | Blood specimen | | (specimen) | + + + +---------+ + + | Performing | Address | City/State/Zipcode | Phone Number | | Organization | | | | + +---------+ + + | EXTERNAL LAB | | | | + +---------+ + + POC Glucose (12/26/2017 4:27 PM PDT) + + + + + + | Component | Value | Ref Range | Performed | Pathologist | | | | | At | Signature | + + + + + + | Glucose, | 91Comment: Testing | 65 - 99 mg/dL | EXTERNAL | | | Fingerstick | performed at [facility];[address] | | LAB | | | | [address];[place] | | | | | | [address] | | | | + + + + + + + + | Specimen | + + | | + + + +---------+ + + | Performing | Address | City/State/Zipcode | Phone Number | | Organization | | | | + +---------+ + + | EXTERNAL LAB | | | | + +---------+ + + XR Chest 1 Vw (12/26/2017 1:23 AM PDT) + + | Specimen | + + | | + + + + + | Narrative | Performed At | + + + | This is a non-reportable procedure without a radiologist report and | | | is used for image storage only | | + + + + + | Procedure Note | + + | Akshat Olson Colby - 12/28/2018 5:54 AM PDT This is a non-reportable procedure | | without a radiologist report and isused for image storage only | + + documented in this encounter Visit Diagnoses + + | Diagnosis | + + | Pain Generalized pain | + + | S/P drug eluting coronary stent placement | + + | NSTEMI (non-ST elevated myocardial infarction) (HCC) Acute myocardial infarction, | | subendocardial infarction, episode of care unspecified | + + documented in this encounter
--- OUTSIDE RECORDS SUMMARY | ~2020-01-22 | XMS | Clinical Summary ---
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 | 12/13/2018 | + + [...] Overview: intial AICD 2004, generator change 03/27/11, [place] | | Scientific Telogen E110, s# [id number]; RV Lead - Guidant 0184, s# | | [id number] (08/15/03); RA Lead - Guidant Fineline II EZ Sterox 4469, | | s# [id number] (08/15/03) | + + + + + [...] | Coronary artery | Mother | | [place] | | disease | | | | [...] [place] | | | | | | [place] [address] | | | | | | [phone] | | | | | | | [...] | + +-------+------+ +--------+--------+--------+ | Implant Id: [id number] - Synergy | Stent | | [place] | | 08/30/ | [id number] | | 3.5 X 16-12/27/2017Implanted: | | | SCIENTIFIC | | 2019 | [id number] | | 12/27/2017 by Aquiles Morris, | | | LARRY - BSCI | | | 50 / | | MD (Quantity not on file) | | | | | | /[id number] | | | | | | | | 257 | + +-------+------+ +--------+--------+--------+ | Implant Id: [id number] - Synergy | Stent | | [place] | | 08/30/ | [id number] | | 3.5 X 16-12/27/2017Implanted: | | | SCIENTIFIC | | 2019 | [id number] | | 12/27/2017 by Aquiles Morris, | | | LARRY - BSCI | | | 50 / | | MD (Quantity not on file) | | | | | | /[id number] | | | | | | | [...] MD | | | | | | ([id number]) on 01/08/2020 | | | | | [...] Device Interrogation: Her | | | dual-chamber [place] Scientific ICD was interrogated and found to [...] | | | encounter for additional details. tip inserter: ONUR Farrell | | | | | |Device interrogation done by Erin Caba | | | | | |Any events or changes listed in office note. | | | | | |See device data attached to scheduled encounter for additional | | |details. | | | | | |tip inserter: ONUR Farrell | | + + + + + | Procedure Note | + + | Jami Barron RN - 01/03/2020 3:30 PM PDT Device information was obtained from | | provider's office note on 01/03/2020:Device Interrogation: Her dual-chamber [place] | | Mirego ICD was interrogated and found to have [...] | | scheduled encounter for additional details. tip inserter: ONUR Farrell | |See device data attached [...] +--------+ +---------+--------+ | MEDICARE | MEDICA | [id number] | 11/15/19 | [phone] | | Medica | | | RE | | 04-Pre | 5 | | re | | | PART A | | sent | | | | | | AND B | | | | | | + +--------+ +--------+ +---------+--------+ | MEDICARE | MEDICA | [id number] | 11/15/19 | [phone] | | Medica | | | RE | | 04-Pre | 5 | | re | | | PART A | | sent | | | | | | AND B | | | | | | + +--------+ +--------+ +---------+--------+ | [employer] | IHS | [id number] | 05/17/19 | | | Indemn | | SERVICE | YELLOW | | 04-Pre | | | ity | | | HAWK | | sent | | | | + +--------+ +--------+ +---------+--------+ | [employer] | IHS | [id number] | 05/18/19 | | | Indemn | | SERVICE | YELLOW | | 13-Pre | | | ity | | | HAWK | | sent | | | | + +--------+ +--------+ +---------+--------+ | [place]ID [place] | MEDICA | [id number] | | [phone] | | Medica | | | ID [place] | | 019-Pr | 2 | | id | | | PLUS | | esent | | | | + +--------+ +--------+ +---------+--------+ | [place]ICAID [place] | MEDICA | [id number] | 05/22/19 | [phone] | | Medica | | | ID [...] Person | Self | [birth year] | | [address] | | | al/Fam | | 1941 | [phone] | [place], [place] | | | [place] | | | [address] (Home) | [address] | + +--------+ +--------+ + + | Yuliana Galindo | Person | Self | [birth year] | | [address] | | | al/Fam | | 1941 | [phone] | [place], [place] | | | [place] | | | 7 (Home) | [address] | + +--------+ +--------+ + + | Yuliana Galindo | Person | Self | [birth year] | [address] | | | al/Fam | | 1941 | [phone] | [place], [place] | | | [place] | | | 7 (Home) | [phone] | + +--------+ +--------+ + + Advance Directives + + + + + | Type | Date Recorded | Patient | Explanation | | | | 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
--- OUTSIDE RECORDS SUMMARY | ~2020-01-22 | XMS | Encounter Summary ---
Demographics + + + | Address | [address] | | | [place] [address] | + + + | Home Phone | | + + + | Preferred Language | Unknown | + + + | Marital Status | | + + + | Religion Affiliation | 1041 | + + + | Race | or | + + + | Ethnic Group | Not or | + + + Author + + + | Author | [facility] | | | and [place] | + + + | Organization | [facility] | | | and [place] | + + + | Address | Unknown | + + + | Phone | Unavailable | + + + Support + + +---------+ + | Name | Relationship | Address | Phone | + + +---------+ + | Kamila Gonzalesay | ECON | Unknown | | + + +---------+ + | Martha [place]en[place]ro | ECON | Unknown | | + + +---------+ + Care Team Providers + +------+ + | Care Steel Rule Die Maker Name | Role | Phone | + +------+ + | Roxana Barajas PA-C | PCP | | + +------+ + Reason for Visit + + + | Reason | Comments | + + + | Device Check | | | (Remote) | | + + + Encounter Details +--------+ + + + + | Date | Type | Department | Care Team | Description | +--------+ + + + + | 09/10/ | Procedure | [facility] | | Cardiac | | 2020 | visit | CARDIOLOGY [place] | | defibrillator in | | | | [address] | | situ | | | | [place], [place] | | | | | | [address] | | | | | | [phone] | | | +--------+ + + + [...] + + documented as of this encounter Procedure Notes Girish Neal RN - 09/11/2019 8:00 AM PDTAssociated Order(s): DEVICE INTERROGATION- REM OTEProcedure(s): DEVICE INTERROGATION- REMOTEPre-Procedure Diagnose(s): Cardiac defibrillato r in situ ICD REMOTE INTERROGATION REPORT Name: Yuliana Galindo PCP: Roxana Barajas PA-C : 1940 Primary cardiology provider: Tres Hewitt Primary electrophysiology provider: Erin Caba Device housekeeper caregiver: Shustir Device type: Dual chamber Battery Longevity: 2.5 years RA Pacin% RV Pacin% INTERROGATION RESULTS: Please see the full interrogation report attached Known history of atrial flutter or atrial fibrillation: No Current antithrombotic therapy including: warfarin Since last in-office on 06/12/2019: Mode switches: 1 atrial event with EGM noted on 06/21/2019 at 1446. Episode lasted 6 seconds with an average ventricular rate of 180 bpm, and was 1:1 atrial driven. VT/VF Detections: 5 ventricular events with EGMs noted. All 5 are 1:1 atrial driven. Fastest average ventricular rate was 202 bpm on 08/06/2019 at 1213, and lasted 7 seconds. Longest episode lasted 12 seconds on 06/25/2019 at 1754, and had an average ventricular ra te of 198 bpm. Lead function: Lead impedance and threshold value trends have been reviewed and are accepta ble based on most recent evaluation. Additional comments: None. IMPRESSION: 1. Normal ICD function. 2. atrial event noted. 3. Ventricular events noted above. Testing reviewed by: Girish Neal RN Associated attestation - Barak Caba MD - 10/01/2019 11:46 AM PDTDevice inte rrogation reviewed. Agree with assessment and plan as outlined. No EGMs for review in [facility].documented in this encounter Plan of Treatment +--------+ + + + + | Date | Type | Specialty | Care Team | Description | +--------+ + + + + | 03/18/ | Procedure | Cardiology | | | 2019 | visit | | | | +--------+ + + + + | 07/22/ | Office | Cardiology | Barak Caba | | | 2020 | Visit | | MD [address] | | | | | [address] | | | | | | [place] [address] | | | | | | [phone] | | | | | | | [...] + + | DEVICE | Routin | 09/11/2019 | Cardiac | Results for this | | INTERROGATION- | e | 8:00 AM | defibrillator in | procedure are in the | | REMOTE | | PDT | situ | results section. | + +--------+ + + + documented in this encounter Results Device Interrogation - Remote (09/11/2019 8:00 AM PDT) + + + | Narrative | Performed At | + + + | [facility] | | ONUR Neal 09/11/2019 1:54 PMICD REMOTE INTERROGATION REPORT | | | Name: Yuliana Galindo PCP: Roxana Barajas PA-C : 1940MRN: | | | [id number] Primary cardiology provider: Tres Hewitt Primary | | | electrophysiology provider: Erin Caba Device housekeeper caregiver: | | | Shustir Device type: Dual chamber Battery Longevity: 2.5 | | | years RA Pacin% RV Pacin% INTERROGATION RESULTS:Please see the | | | full interrogation report attached Known history of atrial flutter | | | or atrial fibrillation: NoCurrent antithrombotic therapy including: | | | warfarin Since last in-office on 06/12/2019:Mode switches: 1 atrial | | | event with EGM noted on 06/21/2019 at 1446. Episode lasted 6 seconds | | | with an average ventricular rate of 180 bpm, and was 1:1 atrial | | | driven. VT/VF Detections: 5 ventricular events with EGMs noted. All 5 | | | are 1:1 atrial driven. Fastest average ventricular rate was 202 bpm | | | on 08/06/2019 at 1213, and lasted 7 seconds. Longest episode lasted | | | 12 seconds on 06/25/2019 at 1754, and had an average ventricular rate of | | | 198 bpm. Lead function: Lead impedance and threshold value trends | | | have been reviewed and are acceptable based on most recent evaluation. | | | Additional comments: None. IMPRESSION:1. Normal ICD function.2. | | | atrial event noted.3. Ventricular events noted above. Testing reviewed | | | by: iGrish Neal RN | | |Please see the full interrogation report attached | | | | | |Known history of atrial flutter or atrial fibrillation: No | | |Current antithrombotic therapy including: warfarin | | | | | |Since last in-office on 06/12/2019: | | |Mode switches: | | |1 atrial event with EGM noted on 06/21/2019 at 1446. Episode lasted | | |6 seconds with an average ventricular rate of 180 bpm, and was | | |1:1 atrial driven. | | | | | |VT/VF Detections: | | |5 ventricular events with EGMs noted. All 5 are 1:1 atrial | | |driven. | | | Fastest average ventricular rate was 202 bpm on 08/06/2019 at | | |1213, and lasted 7 seconds. | | | Longest episode lasted 12 seconds on 06/25/2019 at 1754, and had | | |an average ventricular rate of 198 bpm. | | | | | |Lead function: Lead impedance and threshold value trends have | | |been reviewed and are acceptable based on most recent evaluation. | | | | | |Additional comments: None. | | | | | |IMPRESSION: | | |1. Normal ICD function. | | |2. atrial event noted. | | |3. Ventricular events noted above. | | | | | |Testing reviewed by: Girish Neal RN | | + + + + +---------+ + + | Performing | Address | City/State[place] [place] | Phone Number | | Organization | | | | + +---------+ + + | [facility] | | | | + +---------+ + + documented in this encounter Visit Diagnoses + + | Diagnosis | + + | Cardiac defibrillator in situ Automatic implantable cardiac defibrillator in situ | + + documented in this encounter"
--- OUTSIDE RECORDS SUMMARY | ~2020-01-22 | XMS | Encounter Summary ---
Demographics + + + | Address | [address] | | | [place] [address] | + + + | Home Phone | | + + + | Preferred Language | Unknown | + + + | Marital Status | | + + + | Alevism Affiliation | 1041 | + + + | Race | or | + + + | Ethnic Group | Not or | + + + Author + + + | Author | [facility] | | | and [place] | + + + | Organization | [facility] | | | and [...] Team Providers + +------+ + | Care Histological Illustrator Name | Role | Phone | + +------+ + | Roxana Barajas PA-C | PCP | | + +------+ + Reason for Visit + + + | Reason | Comments | + + + | New Patient | left hip pain onset 04/2019 | + + + Evaluate & Treat (Routine) +--------+--------+ + + + + | Status | Reason | Specialty | Diagnoses / | Referred By | Referred To | | | | | Procedures | Contact | Contact | +--------+--------+ + + + + | Closed | | Orthopedic | Diagnoses | Fiorella, | [place], | | | | Surgery | Left hip | Lester Bowden, | Freeman Bowden MD | | | | | pain | PA-C [address] | [address] | | | | | | [address] | | | | | | [place] | [place] | | | | | | [place], | [address] Phone: | | | | | | [place] [address] | [phone] | | | | | | Phone: | Fax: | | | | | | [phone] | [phone] | | | | | | Fax: | | | | | | | [phone] | | +--------+--------+ + + + + Encounter Details +--------+---------+ + + + | Date | Type | Department | Care Team | Description | +--------+---------+ + + + | 06/01/ | Office | [facility] | Manuel Wesley | Arthritis of left | | 2020 | Visit | ORTHOPEDIC SURGERY | [address] | hip (Primary Dx); | | | | [address] | [facility] | Tobacco abuse; Left | | | | [facility] [address] | [place] [address] | hip pain; Morbid | | | | [address] | [phone] | obesity with BMI of | | | | [phone] | | 40.0-44.9, adult | | | | | | ([facility]) | +--------+---------+ + + + Social History + +-------+ [...] documented as of this encounter Progress Notes Manuel Wesley PA-C - 06/01/2019 1:00 PM PSTFormatting of this note might be differe nt from the original. ORTH[facility] [address] [place] [id number] FAX: [phone] Name: Yuliana Galindo : 1940 Age: 78 y.o. Todays Date: 06/02/2019 Primary Care Provider: Roxana Barajas PA-C Chief Complaint Patient presents with New Patient left hip pain onset 04/2019 History of Present Illness: Yuliana Galindo is a new patient that presents with what she professes acute left hip pain started in April 2019 on Shalimar Sana. Prescription as she had acute left anterior avinash in pain started abruptly. Denies any site incident or trauma. Notes the pain was so severe she actually went to [facility] in [place] for evaluation. She describ es that they gave her a shot of pain medication and sent her home. She is now been referred to my office for further care and evaluation. She has the pain is very prominent. Describ es the pain as occurring at the anterior groin. Shows a pain is always increased with ambul ation, weightbearing or any degree of activity. Improved with rest and ibuprofen PRN. She does profess interesting that she has had physical therapy as well for strengthening and not es no significant pain reprieve. She is a tobacco user and smokes daily. She is also a michelle betic. She has had a previous right total hip arthroplasty performed about 4 to 5 years ago in [place]. Her current level pain is rated at an 8 at the left hip Past Medical History: Diagnosis Date Anxiety With panic attacks Asthma CHF (congestive heart failure) ([facility]) chronic systolic heart failure, EF was 27% in the past, improved to 50-55% on echo 02/18/15 Community acquired pneumonia 2011 COPD (chronic obstructive pulmonary disease) ([facility]) h/o chronic bronchitis, long h/o tobacco abuse Coronary artery disease involving seneca coronary artery s/p CABG x3 (SVG to LAD, SVG to RCA, SVG to OM3) 1994, s/p KERA to SVG to OM3 01/01 Diabetes mellitus type 2 in obese ([facility]) diet controlled History of syncope 2003 secondary to VT 2003, one recurrent episode remotely since her AICD was implanted. Hyperlipidemia Hypertension Ischemic dilated cardiomyopathy ([facility]) EF was 27% on echo 08/01/03, improved to 50-55% on echo 02/18/15 Old AR (myocardial infarction) 1993 Osteoarthritis Pulmonary embolism ([facility]) Pulmonary hypertension ([facility]) RVSP 58-63 on echo 01/01 S/P CABG x 3 1994 SVG>LAD, SVG>OM, SVG>RCA (she thought she had 4 grafts, which has been on her records for years, but only 3 vein grafts present on cath 12/27/17) Secondary pulmonary arterial hypertension ([facility]) mild, RVSP 40 mm Hg (echo 02/18/15) Status post internal cardiac defibrillator procedure 08/15/2003 S/p DC BS ICD 07/18 - gen change 03/26 - no capture from RA lead (noted at time of gen kuo ge 03/26) - RA lead appears pulled back into SVC on CXR TB (tuberculosis) pulmonary, treated for "6 years" Tobacco abuse Ventricular tachycardia, paroxysmal ([facility]) 2003 with Syncope, + EPS for inducible VT - 08/14/03 Past Surgical History: Procedure Laterality Date CARDIAC CATHERIZATION 12/2017 LM 40-50% distal, LAD mid occl post D1, D1 50% ostial-prox, Cx prox 50%, mid 70-80%, RCA o ccl, SVG to LAD patent with 25-30% anastomosis, SVG to RCA patent, SVG to OM3 90-95% ostial and 90-95% mid s/p KERA CARDIAC DEFIBRILLATOR PLACEMENT intial AICD 2003, generator change 03/27/11, [employer] Telogen E110, s# [id number]; R V Lead - Guidant 0184, s# [id number] (08/15/03); RA Lead - [employer] Fineline II EZ Sterox 4469, s # [id number] (08/15/03) COLONOSCOPY CORONARY ARTERY BYPASS GRAFT 1994 SVG>LAD, SVG>OM, SVG>RCA (she thought she had 4 grafts, which has been on her records for years, but only 3 vein grafts present on cath 12/27/17 KNEE ARTHROPLASTY Right KNEE JOINT MANIPULATION Bilateral OTHER SURGICAL HISTORY Right OTHER SURGICAL HISTORY 03/27/2011 CARDIAC DEFIBRILLATOR REMOVAL - implanted 08/15/03, generator was at [facility] PARTIAL HIP ARTHROPLASTY Right TRANSTHORACIC ECHOCARDIOGRAM 12/2017 EF 40-45%, mild MR, mild TR, tr MT, RVSP 58-63 No Known Allergies Current Outpatient Medications Medication Sig Dispense Refill acetaminophen (TYLENOL) 325 mg tablet Take 325 mg by mouth every 6 (six) hours as neede d for Pain. acetaminophen (TYLENOL) 325 mg tablet Take or use as needed. albuterol (VENTOLIN HFA) 90 mcg/puff inhaler 2 puffs four times daily as needed. allopurinol (ZYLOPRIM) 100 mg tablet Take 100 mg by mouth daily. aspirin 81 MG tablet Take 81 mg by mouth daily. atorvaSTATin (LIPITOR) 40 mg tablet Take 40 mg by mouth. Calcium Carb-Cholecalciferol (CALCIUM-VITAMIN D) 600-400 MG-UNIT TABS Take 1 tablet by mouth 2 (two) times daily. calcium-vitamin D (CALCIUM + D) 250-125 MG-UNIT per tablet Take by mouth 2 times daily . cholecalciferol (CHOLECALCIFEROL) 1000 units TABS Take 1,000 Units by mouth daily. clopidogrel (PLAVIX) 75 mg tablet Take 75 mg by mouth. cyanocobalamin (VITAMIN B-12) 1000 MCG tablet Take 1,000 mcg by mouth daily. escitalopram (LEXAPRO) 20 mg tablet Take 20 mg by mouth daily. furosemide (LASIX) 20 mg tablet Take 20 mg by mouth Daily. ipratropium (ATROVENT HFA) 17 mcg/puff inhaler Take or use as needed. isosorbide mononitrate (IMDUR) 30 mg ER tablet Take 1 tablet by mouth daily. KCl in Dextrose-NaCl 10-5-0.2 MEQ/L-%-% SOLN Take 1 tablet by mouth daily loratadine (CLARITIN) 10 mg tablet Take 10 mg by mouth Daily as needed. metFORMIN (GLUCOPHAGE) 500 mg tablet Take 500 mg by mouth 2 times daily (with breakfast & dinner). metoprolol succinate (TOPROL-XL) 25 mg 24 hr tablet Take 25 mg by mouth Daily. nitroglycerin (NITROSTAT) 0.[address] 1 tablet under the tongue every 5 (fiv e) minutes as needed for Chest pain. PARoxetine (PAXIL) 20 mg tablet Take 20 mg by mouth Daily. potassium chloride (KLOR-CON) 20 MEQ packet Take 20 mEq by mouth daily. quiNINE (QUALAQUIN) 324 mg capsule Take 324 mg by mouth nightly. simvastatin (ZOCOR) 40 mg tablet Take 40 mg by mouth Daily. triamcinolone acetonide (KENALOG) 10 MG/ML injection 4 puffs twice daily. warfarin (COUMADIN) 3 MG tablet 3 mg four days a week, 4.5 mg three days a week. No current facility-administered medications for this visit. Family History Problem Relation Age of Onset Coronary artery disease Mother 60 AR Alzheimer's disease Brother Other (see comment) Brother Diabetes Mellitus II Thyroid disease Daughter Social History Tobacco Use Smoking status: Heavy Tobacco Smoker Packs/day: 0.50 Smokeless tobacco: Never Used Tobacco comment: cut down to 0.5 ppd several weeks ago Substance Use Topics Alcohol use: Not Currently Drug use: Not on file Comment: Drug use: No Review of Systems: Constitutional: Negative for fever, malaise, fatigue or weight loss. HENT: Positive for glasses, failing vision, artificial dentition, hearing loss, sore throat and congestion Respiratory: Positive for asthma/wheezing, night sweats, shortness of air, chronic cough an d TB exposure Cardiovascular: Positive for heart problems, chest pain and ankle swelling Gastrointestinal: Positive for abdominal pain, trouble swallowing and nausea Musculoskeletal: Positive for back and shoulder pain, joint pain and joint swelling Genitourinary: Positive for urinary leakage, weak urine stream and nocturia Skin: Positive for itching/burning, skin bruising easily and hair loss Neurological: Positive for faintness, dizziness, memory loss and shooting pains. Patient i s left-handed Psych: Positive for depression Imaging/Studies: Reviewed imaging studies today in our office Xr Hip Left 2-3 Views Result Date: 05/25/2019 External films for comparison only No results will be in the chart. Reviewed plain film x-rays obtained in [place] which reveals moderate to severe arthritic changes of the left hip with near [id number] apposition Physical Exam: There were no vitals filed for this visit. Constitutional: Pleasant and cooperative with exam. In no acute distress. Appears their stated age. Head: Normal cephalic and atraumatic. Eyes: EOM intact ENT: Adequate hearing noted bilaterally Cardiovacular: No lower extremity edema noted. Pulmonary: Non-labored respirations. Pt does not appear short of breath. Musculoskeletal: Patient is nonambulatory today. She is in a wheelchair. She states that she does not feel safe getting up and walking. She has normal flexion extension of the left hip but does profess mild discomfort with anterior groin. Limited internal range of motion to about 5 degrees and externally to about 20. Both movements cause her prominent and usdha re discomfort at the left anterior groin. She has become quite guarded and verbalizes her p ain. Nontender along the left IT band or along the left greater trochanter. Neurologic: No obvious neurological abnormalities observed with patient. Skin: Warm and dry. No erythema or swelling noted at left hip Psych: Pt is alert, oriented. Answers questions promptly when asked Assessment/Plan: 1. Primary osteoarthritis left hip; advanced 2. Left hip pain 3. Tobacco abuse; chronic 4. Morbid obesity; BMI greater than 40 A. We reviewed plain film images today in conjunction with examination findings of the le ft hip. X-rays the left hip do reveal obvious arthritic changes appear as mild to moderate with near [id number] apposition. Examination reveals as therapy the cause of her pain. N o further imaging study is warranted at this time. She has completed a course of physical t herapy that was prescribed by her provider in [place]. This provided her no significant p ain reprieve. She does appear to be declining over time. We discussed treatment options to include continued pain medication, physical therapy, injection therapy and surgical interve ntion. Intervention surgically in the way of a total knee arthroplasty. Unfortunate this t gino she is a very poor medical candidate for a left total hip arthroplasty secondary to her chronic tobacco abuse, morbid obesity and comorbidities. We discussed that we do require at least 4 weeks of non-smoking and her have her be able to pass a nicotine blood test. We al so discussed that we have a threshold of 44 BMI. She is currently at just above 42. Recomm end she continue to modify her diet and decrease over time. We discussed that we do require also a A1c of 7.5 or less. She is a type II diabetic that is currently on metformin but I see no previous A1c's according to our record. Recommended that she work to curb her nicoti ne and continue with weight loss to become a surgical candidate. She does not wish to have any injection therapy and simply mass the pain. 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 Recommend that she follow-up with her primary care provider in [facility] to nutritional management and a smoking cessation plan. Recommend that when she is able to pass a nicotine test to contact her office for further progression if needed for consider ation of left total joint arthroplasty. Follow-up in my office will be PRN. B. Patient is advised that if they have any questions, comments or concerns to contact our office. I spent over 30 minutes face to face with the patient, with over 50% spent in counseling an d/or coordination of care regarding left hip pain, review of images and pathology with daron murray and development of our treatment plan. Answered several questions posed by patient. Manuel Wesley PA-C 06/02/2019 12:20 PM This history and physical was dictated using the [employer] voice recognition system. There may be minor errors in grammar. documented in t his encounter Plan of Treatment +--------+ + + [...] [address] | | | | | | [place] [address] | | | | | | [phone] | | | | | | | | +--------+ + + + + | 07/22/ | Procedure | Cardiology | | | | 2020 | visit | | | | +--------+ + + + + documented as of this encounter Visit Diagnoses + + | Diagnosis | + + | Arthritis of left hip - Primary | + + | Tobacco abuse Tobacco use disorder | + + | Left hip pain Pain in joint, pelvic region and thigh | + + | Morbid obesity with BMI of 40.0-44.9, adult (HCC) | + + documented in this encounter
--- OUTSIDE RECORDS SUMMARY | ~2020-01-22 | XMS | Encounter Summary ---
Demographics + + + | Address | [address] | | | [place] [address] | + + + | Home Phone | | + + + | Preferred Language | Unknown | + + + | Marital Status | | + + + | Anglican Affiliation | 1041 | + + + | Race | or | + + + | Ethnic Group | Not or | + + + Author + + + | Author | [facility] | | | and [place] | + + + | Organization | [facility] | | | [...] Team Providers + +------+ + | Care Customer Engagement Analyst Name | Role | Phone | + +------+ + | Roxana Barajas PA-C | PCP | | + +------+ + Encounter Details +--------+ + + + + | Date | Type | Department | Care Team | Description | +--------+ + + + + | 05/30/ | Orders Only | [facility] | Rani Jo Annnisreen | | | 2020 | | PULMONOLOGY [address] | Eddie Bowden MD [address] | | | | | [address] | [address] | | | | | [place], [place] | [place] [address] | | | | | [address] | [phone] | | | | | [phone] | | | +--------+ + + + [...] [address] | | | | | | [place] [address] | | | | | | [phone] | | | | | | | | +--------+ + + + + | 07/22/ | Procedure | Cardiology | | | | 2020 | visit | | | | +--------+ + + + + documented as of this encounter Visit Diagnoses Not on filedocumented in this encounter"
--- OUTSIDE RECORDS SUMMARY | ~2020-01-22 | XMS | Encounter Summary ---
Demographics + + + | Address | [address] | | | [place] [address] | + + + | Home Phone | | + + + | Preferred Language | Unknown | + + + | Marital Status | | + + + | Moravian Affiliation | 1041 | + + + | Race | or | + + + | Ethnic Group | Not or | + + + Author + + + | Author | [facility] | | | and [place] | + + + | Organization | [facility] | | | [...] Team Providers + +------+ + | Care Ornamental Ironworking Supervisor Name | Role | Phone | + +------+ + | Roxana Barajas PA-C | PCP | | + +------+ + Encounter Details +--------+ + + + + | Date | Type | Department | Care Team | Description | +--------+ + + + + | 02/26/ | Orders Only | [facility] | Tres Hewitt, | | | 2014 | | [facility] | [address] | | | | | ECHO [address] | [place] [address] | | | | | [place], [place] | [phone] | | | | | [address] | | | | | | [phone] | | | +--------+ + + + [...] [place] | | | | | | [place] [address] | | | | | | [phone] | | | | | | | [...] + | ECHO COMPLETE | Routin | 02/26/2015 | | Results for this | | | e | 9:58 AM | | procedure are in the | | | | PDT | | results section. | + +--------+ + + + documented in this encounter Results ECHO Complete (02/26/2015 9:58 AM PDT) + + | Specimen | + + | | + + + + + | Impressions | Performed At | + + + | 1. This was a technically difficult study with suboptimal views. 2. | | | Overall left ventricular systolic function is low-normal with, an EF | | | between 50 - 55 %. 3. The diastolic filling pattern indicates | | | impaired relaxation consistent with mild dysfunction (Grade I). 4. | | | Moderate tricuspid regurgitation present. 5. There is mild pulmonary | | | hypertension. | | + + + + + + | Narrative | Performed At | + + + | Patient Name: YULIANA GALINDO Date of : 1940 | | | Performing Physician: Tres Hewitt MD, | | | FACC, FACP, FASNC | | | | | | INDICATIONS CHF CONCLUSIONS 1. This | | | was a technically difficult study with suboptimal views. 2. Overall | | | left ventricular systolic function is low-normal with, an EF between | | | 50 - 55 %. 3. The diastolic filling pattern indicates impaired | | | relaxation consistent with mild dysfunction (Grade I). 4. Moderate | | | tricuspid regurgitation present. 5. There is mild pulmonary | | | hypertension. FINDINGS -------- ECG rhythm: Sinus rhythm with | | | extra systolic beats. Study: A 2-dimensional transthoracic | | | echocardiogram with m-mode, spectral and color flow Doppler was | | | perfomed. Study: This was a technically difficult study with | | | suboptimal views. Left Ventricle: Overall left ventricular systolic | | | function is low-normal with, an EF between 50 - 55 %. Left Ventricle: | | | The left ventricle cavity size is normal. Left Ventricle: There is | | | mild concentric left ventricular hypertrophy. Left Ventricle: The | | | diastolic filling pattern indicates impaired relaxation consistent | | | with mild dysfunction (Grade I). Right Ventricle: The RV was not well | | | visualized. Right Ventricle: Pacer/ICD wire seen. Left Atrium: The | | | left atrium is mildly enlarged. Right Atrium: The right atrium is | | | mildly enlarged. Right Atrium: Pacemaker wire seen in the right | | | atrial cavity. Aortic Valve: The aortic valve was not well | | | visualized. Aortic Valve: There is no evidence of aortic | | | regurgitation. Aortic Valve: There is no evidence of aortic stenosis. | | | Mitral Valve: The mitral valve is normal. Mitral Valve: Mild mitral | | | regurgitation is present. Tricuspid Valve: The tricuspid valve | | | appears structurally normal. Tricuspid Valve: Moderate tricuspid | | | regurgitation present. Tricuspid Valve: There is mild pulmonary | | | hypertension. Tricuspid Valve: The right ventricular systolic | | | pressure (pulmonary artery systolic pressure), as measured by Doppler, | | | is 39.84mmHg. Pulmonic Valve: Pulmonic valve appears structurally | | | normal. Pulmonic Valve: Mild pulmonic regurgitation. Pericardium: | | | There is no pericardial effusion. IVC/Hepatic Veins: The IVC is | | | normal size (1.5-2.5cm) and collapses >50% with sniff, consistent with | | | central venous pressures of 5-10mmHg. Mass: No mass visualized | | | Thrombus: No clot visualized Septum: No ASD observed. Septum: No VSD | | | observed. MEASUREMENTS Ao asc: 2.90 cm IVC: | | | 1.64 cm EDV(Teich): 156.81 ml IVSd: 1.01 cm LVIDd: 5.64 | | | cm LVPWd: 1.26 cm LVOT Area: 3.40 cm2 LVOT Diam: 2.08 cm | | | %FS: 17.35 % EF(Teich): 35.72 % ESV(Teich): 100.79 ml | | | LVIDs: 4.66 cm SV(Teich): 56.02 ml LVEF MOD A2C: 58.27 % | | | SV MOD A2C: 52.31 ml LVEF MOD A4C: 52.24 % SV MOD A4C: | | | 52.97 ml EF Biplane: 54.13 % LVEDV MOD BP: 99.35 ml LVESV MOD | | | BP: 45.57 ml LVEDV MOD A2C: 89.78 ml LVLd A2C: 6.86 cm | | | LVEDV MOD A4C: 101.40 ml LVLd A4C: 7.44 cm LVESV MOD A2C: | | | 37.46 ml LVLs A2C: 5.90 cm LVESV MOD A4C: 48.42 ml LVLs A4C: | | | 6.83 cm LAESV(A-L): 49.43 ml LAESV Index (A-L): 24.59 ml/m2 | | | LAAs A2C: 19.49 cm2 LAESV A-L A2C: 63.19 ml LALs A2C: | | | 5.10 cm LAAs A4C: 15.24 cm2 LAESV A-L A4C: 35.39 ml LALs A4C: | | | 5.57 cm RAAs: 15.89 cm2 RAESV A-L: 38.86 ml RAESV MOD: | | | 40.41 ml RALs: 5.51 cm Ao Diam: 2.92 cm Ao/LA: 0.62 LA | | | Diam: 4.69 cm LA/Ao: 1.60 AV maxP.55 mmHg AV meanPG: | | | 5.97 mmHg AV Vmax: 1.54 m/s AV Vmean: 1.17 m/s AV VTI: | | | 35.32 cm LEATHA Vmax: 2.32 cm2 LEATHA (VTI): 2.20 cm2 AVAI (Vmax): | | | 0.00 cm2/m2 AVAI (VTI): 0.00 cm2/m2 LVOT maxP.45 mmHg | | | LVOT meanP.42 mmHg LVSI Dopp: 38.73 ml/m2 LVSV Dopp: | | | 77.85 ml LVOT Vmax: 1.05 m/s LVOT Vmean: 0.74 m/s LVOT VTI: | | | 22.88 cm MV A Jarrod: 1.29 m/s MV Dec [place]: 3.15 m/s2 MV | | | DecT: 273.13 ms MV E Jarrod: 0.86 m/s MV E/A Ratio: 0.66 MV | | | PHT: 79.21 ms MVA By PHT: 2.77 cm2 Septal e': 0.03 m/s | | | Septal E/e': 22.10 Lateral e': 0.06 m/s Lateral E/e': 12.90 | | | PAEDP: 9.92 mmHg PRend P.92 mmHg PRend Vmax: 1.10 m/s | | | PV maxP.12 mmHg PV Vmax: 1.12 m/s RAP: 5 mmHg RVSP: | | | 39.84 mmHg TR maxP.84 mmHg TR Vmax: 2.95 m/s | | | Fitting Room Supervisor: JOSÉ ANTONIO Authenticated by: Tres Hewitt MD, FACMaximo, FACP, | | | [facility] Report Date/Time: 02-28-2015 18:06:49 | | + + + + + | Procedure Note | + + | Akshat Olson Conversion - 01/05/2019 11:11 PM PDT Patient Name: Susan GALINDO | | : 1940 Performing Physician: Tres Hewitt MD, FACC, | | FACP, | | FASNC INDICATIONS--------- | | --CHF CONCLUSIONS 1. This was a technically difficult study with suboptimal | | views.2. Overall left ventricular systolic function is low-normal with, an EF between 50 | | - 55 %.3. The diastolic filling pattern indicates impaired relaxation consistent with | | mild dysfunction (Grade I).4. Moderate tricuspid regurgitation present.5. There is mild | | pulmonary hypertension. FINDINGS--------ECG rhythm: Sinus rhythm with extra systolic | | beats.Study: A 2-dimensional transthoracic echocardiogram with m-mode, spectral and | | color flow Doppler was perfomed.Study: This was a technically difficult study with | | suboptimal views.Left Ventricle: Overall left ventricular systolic function is | | low-normal with, an EF between 50 - 55 %.Left Ventricle: The left ventricle cavity size | | is normal.Left Ventricle: There is mild concentric left ventricular hypertrophy.Left | | Ventricle: The diastolic filling pattern indicates impaired relaxation consistent with | | mild dysfunction (Grade I).Right Ventricle: The RV was not well visualized.Right | | Ventricle: Pacer/ICD wire seen.Left Atrium: The left atrium is mildly enlarged.Right | | Atrium: The right atrium is mildly enlarged.Right Atrium: Pacemaker wire seen in the | | right atrial cavity.Aortic Valve: The aortic valve was not well visualized.Aortic Valve: | | There is no evidence of aortic regurgitation.Aortic Valve: There is no evidence of | | aortic stenosis.Mitral Valve: The mitral valve is normal.Mitral Valve: Mild mitral | | regurgitation is present.Tricuspid Valve: The tricuspid valve appears structurally | | normal.Tricuspid Valve: Moderate tricuspid regurgitation present.Tricuspid Valve: There | | is mild pulmonary hypertension.Tricuspid Valve: The right ventricular systolic pressure | | (pulmonary artery systolic pressure), as measured by Doppler, is 39.84mmHg.Pulmonic | | Valve: Pulmonic valve appears structurally normal.Pulmonic Valve: Mild pulmonic | | regurgitation.Pericardium: There is no pericardial effusion.IVC/Hepatic Veins: The IVC | | is normal size (1.5-2.5cm) and collapses >50% with sniff, consistent with central venous | | pressures of 5-10mmHg.Mass: No mass visualizedThrombus: No clot visualizedSeptum: No | | ASD observed.Septum: No VSD observed. MEASUREMENTS Ao asc: 2.90 cmIVC: | | 1.64 cmEDV(Teich): 156.81 mlIVSd: 1.01 cmLVIDd: 5.64 cmLVPWd: 1.26 cmLVOT Area: | | 3.40 [id number] Diam: 2.08 cm%FS: 17.35 %EF(Teich): 35.72 %ESV(Teich): 100.79 | | mlLVIDs: 4.66 cmSV(Teich): 56.02 mlLVEF MOD A2C: 58.27 %SV MOD A2C: 52.31 mlLVEF | | MOD A4C: 52.24 %SV MOD A4C: 52.97 mlEF Biplane: 54.13 %LVEDV MOD BP: 99.35 | | mlLVESV MOD BP: 45.57 mlLVEDV MOD A2C: 89.78 mlLVLd A2C: 6.86 cmLVEDV MOD A4C: | | 101.40 mlLVLd A4C: 7.44 cmLVESV MOD A2C: 37.46 mlLVLs A2C: 5.90 cmLVESV MOD A4C: | | 48.42 mlLVLs A4C: 6.83 cmLAESV(A-L): 49.43 mlLAESV Index (A-L): 24.59 ml/m2LAAs | | A2C: 19.49 [id number] A-L A2C: 63.19 mlLALs A2C: 5.10 cmLAAs A4C: 15.24 [id number] | | A-L A4C: 35.39 mlLALs A4C: 5.57 cmRAAs: 15.89 [id number] A-L: 38.86 mlRAESV MOD: | | 40.41 mlRALs: 5.51 cmAo Diam: 2.92 cmAo/LA: 0.62LA Diam: 4.69 cmLA/Ao: 1.60AV | | maxP.55 mmHgAV meanP.97 mmHgAV Vmax: 1.54 m/Maurice Vmean: 1.17 m/Maurice VTI: | | 35.32 cmAVA Vmax: 2.32 cm2AVA (VTI): 2.20 [id number] (Vmax): 0.00 cm2/m2AVAI (VTI): | | 0.00 cm2/m2LVOT maxP.45 mmHgLVOT meanP.42 mmHgLVSI Dopp: 38.73 | | ml/m2LVSV Dopp: 77.85 mlLVOT Vmax: 1.05 m/sLVOT Vmean: 0.74 m/sLVOT VTI: 22.88 | | cmMV A Jarrod: 1.29 m/sMV Dec [place]: 3.15 m/s2MV DecT: 273.13 msMV E Jarrod: 0.86 | | m/sMV E/A Ratio: 0.66MV PHT: 79.21 msMVA By PHT: 2.77 rk1Evvyob e': 0.03 | | m/sSeptal E/e': 22.10Lateral e': 0.06 m/sLateral E/e': 12.90PAEDP: 9.92 | | mmHgPRend P.92 mmHgPRend Vmax: 1.10 m/sPV maxP.12 mmHgPV Vmax: 1.12 | | m/sRAP: 5 mmHgRVSP: 39.84 mmHgTR maxP.84 mmHgTR Vmax: 2.95 m/s Fitting Room Supervisor: | | RKAuthenticated by: Tres Hewitt MD, FACC, FACP, FASNCReport Date/Time: 02-28-2015 | | 18:06:49 IMPRESSION: 1. This was a technically difficult study with suboptimal views.2. | | Overall left ventricular systolic function is low-normal with, an EF between 50 - 55 | | %.3. The diastolic filling pattern indicates impaired relaxation consistent with mild | | dysfunction (Grade I).4. Moderate tricuspid regurgitation present.5. There is mild | | pulmonary hypertension. | |IVC: 1.64 cm | |EDV(Teich): 156.81 ml | |IVSd: 1.01 cm | |LVIDd: 5.64 cm | |LVPWd: 1.26 cm | |LVOT Area: 3.40 cm2 | |LVOT Diam: 2.08 cm | |%FS: 17.35 % | |EF(Teich): 35.72 % | |ESV(Teich): 100.79 ml | |LVIDs: 4.66 cm | |SV(Teich): 56.02 ml | |LVEF MOD A2C: 58.27 % | |SV MOD A2C: 52.31 ml | |LVEF MOD A4C: 52.24 % | |SV MOD A4C: 52.97 ml | |EF Biplane: 54.13 % | |LVEDV MOD BP: 99.35 ml | |LVESV MOD BP: 45.57 ml | |LVEDV MOD A2C: 89.78 ml | |LVLd A2C: 6.86 cm | |LVEDV MOD A4C: 101.40 ml | |LVLd A4C: 7.44 cm | |LVESV MOD A2C: 37.46 ml | |LVLs A2C: 5.90 cm | |LVESV MOD A4C: 48.42 ml | |LVLs A4C: 6.83 cm | |LAESV(A-L): 49.43 ml | |LAESV Index (A-L): 24.59 ml/m2 | |LAAs A2C: 19.49 cm2 | |LAESV A-L A2C: 63.19 ml | |LALs A2C: 5.10 cm | |LAAs A4C: 15.24 cm2 | |LAESV A-L A4C: 35.39 ml | |LALs A4C: 5.57 cm | |RAAs: 15.89 cm2 | |RAESV A-L: 38.86 ml | |RAESV MOD: 40.41 ml | |RALs: 5.51 cm | |Ao Diam: 2.92 cm | |Ao/LA: 0.62 | |LA Diam: 4.69 cm | |LA/Ao: 1.60 | |AV maxP.55 mmHg | |AV meanP.97 mmHg | |AV Vmax: 1.54 m/s | |AV Vmean: 1.17 m/s | |AV VTI: 35.32 cm | |LEATHA Vmax: 2.32 cm2 | |LEATHA (VTI): 2.20 cm2 | |AVAI (Vmax): 0.00 cm2/m2 | |AVAI (VTI): 0.00 cm2/m2 | |LVOT maxP.45 mmHg | |LVOT meanP.42 mmHg | |LVSI Dopp: 38.73 ml/m2 | |LVSV Dopp: 77.85 ml | |LVOT Vmax: 1.05 m/s | |LVOT Vmean: 0.74 m/s | |LVOT VTI: 22.88 cm | |MV A Jarrod: 1.29 m/s | |MV Dec [place]: 3.15 m/s2 | |MV DecT: 273.13 ms | |MV E Jarrod: 0.86 m/s | |MV E/A Ratio: 0.66 | |MV PHT: 79.21 ms | |MVA By PHT: 2.77 cm2 | |Septal e': 0.03 m/s | |Septal E/e': 22.10 | |Lateral e': 0.06 m/s | |Lateral E/e': 12.90 | |PAEDP: 9.92 mmHg | |PRend P.92 mmHg | |PRend Vmax: 1.10 m/s | |PV maxP.12 mmHg | |PV Vmax: 1.12 m/s | |RAP: 5 mmHg | |RVSP: 39.84 mmHg | |TR maxP.84 mmHg | |TR Vmax: 2.95 m/s | | | |Fitting Room Supervisor: RK | |Authenticated by: Tres Hewitt MD, FACC, FACP, FASNC | |Report Date/Time: 02-28-2015 18:06:49 | | | |IMPRESSION: | |1. This was a technically difficult study with suboptimal views. | |2. Overall left ventricular systolic function is low-normal with, an EF between 50 - 55 %. | |3. The diastolic filling pattern indicates impaired relaxation consistent with mild dysfunc tion (Grade I). | |4. Moderate tricuspid regurgitation present. | |5. There is mild pulmonary hypertension. | + + documented in this encounter Visit Diagnoses Not on filedocumented in this encounter"
--- OUTSIDE RECORDS SUMMARY | ~2020-01-22 | XMS | Encounter Summary ---
Demographics + + + | Address | [address] | | | [place] [address] | + + + | Home Phone | | + + + | Preferred Language | Unknown | + + + | Marital Status | | + + + | Faith Affiliation | 1041 | + + + | Race | or | + + + | Ethnic Group | Not or | + + + Author + + + | Author | [facility] | | | and [place] | + + + | Organization | [facility] | | | [...] Team Providers + +------+ + | Care Dean Of Admissions Name | Role | Phone | + [...] | | | | | | | [facility] | | | | | | | [address] | | | | | | | Phone: | | | | | | | [phone] | | | | | | | Fax: | | | | | | | [phone] | +--------+--------+ + + + + Encounter Details +--------+---------+ + + + | Date | Type | Department | Care Team | Description | +--------+---------+ + + + | 02/27/ | Office | [facility] | RaniZheng | Chronic obstructive | | 2019 | Visit | PULMONOLOGY [address] | Eddie Bowden MD [address] | pulmonary disease, | | | | [place] | [place] | unspecified COPD | | | | [place], [place] | [place] [address] | type (HCC) (Primary | | | | [address] | [phone] | Dx); Personal | | | | [phone] | | history of tobacco | | [...] might be dif ferent from the original. [facility] PULMONOLOGY [address] [place] [id number] HISTORY: Chief Complaint: I have been asked to assist in the pulmonary evaluation of Yuliana Dumas rt, 78 y.o. female, for COPD. History of [...] for COPD. She was recently admitted at [facility] for an "acute bronchitis". She was treated [...] Asthma CHF (congestive heart failure) ([facility]) chronic systolic heart failure, EF was 27% in the past, improved to 50-55% on echo 02/18/15 Community acquired pneumonia 2011 COPD (chronic obstructive pulmonary disease) ([facility]) h/o chronic bronchitis, long h/o tobacco abuse Coronary artery disease involving [place] coronary artery s/p CABG x3 (SVG to LAD, SVG to RCA, SVG to OM3) 1994, s/p KERA to SVG to OM3 01/01 Diabetes mellitus type 2 in obese ([facility]) diet controlled History of syncope 2003 secondary to VT 2003, one recurrent episode remotely since her AICD was implanted. Hyperlipidemia Hypertension Ischemic dilated cardiomyopathy (HCC) EF was 27% on echo 08/01/03, improved to 50-55% on echo 02/18/15 Old [place] (myocardial infarction) 1993 Osteoarthritis Pulmonary embolism ([facility]) Pulmonary hypertension ([facility]) RVSP 58-63 on echo 01/01 S/P CABG [...] PLACEMENT intial AICD 2003, generator change 03/27/11, [employer] Telogen E110, s# [id number]; R V Lead - Guidant 0184, s# [id number] (08/15/03); RA Lead - Guidant Fineline II EZ Sterox 4469, s # [id number] (08/15/03) COLONOSCOPY CORONARY ARTERY BYPASS GRAFT 1994 [...] EF 40-45%, mild MR, mild TR, tr [place], RVSP 58-63 Current Medications: Outpatient Medications acetaminophen [...] of Onset Coronary artery disease Mother 60 [place] Alzheimer's disease Brother Other (see comment) Brother [...] lungs. - she was recently admitted at [facility] with what sounds like a COPD exacerbation. [...] Saravia MD Pulmonary and Critical Care Medicine [facility] Pulmonology documented in this encounter Plan [...] [place] | | | | | | [place] [address] | | | | | | [phone] | | | | | | | [...]
--- OUTSIDE RECORDS SUMMARY | ~2020-01-22 | XMS | Encounter Summary ---
Demographics + + + | Address | [address] | | | [place] [address] | + + + | Home Phone | | + + + | Preferred Language | Unknown | + + + | Marital Status | | + + + | Adventism Affiliation | 1041 | + + + | Race | or | + + + | Ethnic Group | Not or | + + + Author + + + | Author | [facility] | | | and [place] | + + + | Organization | [facility] | | | [...] Team Providers + +------+ + | Care Recycling Operator Name | Role | Phone | + +------+ + | Roxana Barajas PA-C | PCP | | + +------+ + Reason for Visit +--------+ + | Reason | Comments | +--------+ + | Other | In Home | +--------+ + Encounter Details +--------+ + + + + | Date | Type | Department | Care Team | Description | +--------+ + + + + | 06/29/ | Documentati | [facility] | Cullen Hiadlgo, | Other (In Home) | | 2020 | on | PULMONOLOGY [address] | Head Esthetician | | | | | [place] | | | | | | [place], [place] | | | | | | [address] | | | | | | [phone] | | | +--------+ + + + [...] + documented as of this encounter Progress Cullen Cristina, Head Esthetician - 06/29/2019 4:33 PM PSTFaxed order to discontinue oxyge n at In Home. Received a confirmation for [phone]. documented in this encounter Plan of Treatment [...] [place] | | | | | | [place] [address] | | | | | | [phone] | | | | | | | | +--------+ + + + + | 07/22/ | Procedure | Cardiology | | | | 2020 | visit | | | | +--------+ + + + + documented as of this encounter Visit Diagnoses Not on filedocumented in this encounter"
--- OUTSIDE RECORDS SUMMARY | ~2020-01-22 | XMS | Encounter Summary ---
Demographics + + + | Address | [address] | | | [place] [address] | + + + | Home Phone | | + + + | Preferred Language | Unknown | + + + | Marital Status | | + + + | Sabianism Affiliation | 1041 | + + + | Race | or | + + + | Ethnic Group | Not or | + + + Author + + + | Author | [facility] | | | and [place] | + + + | Organization | [facility] | | | [...] Team Providers + +------+ + | Care Reproduction Artist Name | Role | Phone | + [...] | | | | | | | [facility] | | | | | | | [address] | | | | | | | Phone: | | | | | | | [phone] | | | | | | | Fax: | | | | | | | [phone] | +--------+--------+ + + + + Encounter Details +--------+---------+ + + + | Date | Type | Department | Care Team | Description | +--------+---------+ + + + | 02/27/ | Office | [facility] | RaniZheng | Chronic obstructive | | 2019 | Visit | PULMONOLOGY [address] | Eddie Bowden MD [address] | pulmonary disease, | | | | [place] | [place] | unspecified COPD | | | | [place], [place] | [place] [address] | type (HCC) (Primary | | | | [address] | [phone] | Dx); Personal | | | | [phone] | | history of tobacco | | [...] might be dif ferent from the original. [facility] PULMONOLOGY [address] [place] [address] HISTORY: Chief Complaint: I have been asked [...] for COPD. She was recently admitted at [facility] for an "acute bronchitis". She was treated [...] panic attacks Asthma CHF (congestive heart failure) ([facility]) chronic systolic heart failure, EF was 27% in the past, improved to 50-55% on echo 02/18/15 Community acquired pneumonia 2011 COPD (chronic obstructive pulmonary disease) ([facility]) h/o chronic bronchitis, long h/o tobacco abuse Coronary artery disease involving [place] coronary artery s/p CABG x3 (SVG to LAD, SVG to RCA, SVG to OM3) 1994, s/p KERA to SVG to OM3 01/01 Diabetes mellitus type 2 in obese ([facility]) diet controlled History of syncope 2003 secondary to VT 2003, one recurrent episode remotely since her AICD was implanted. Hyperlipidemia Hypertension Ischemic dilated cardiomyopathy (HCC) EF was 27% on echo 08/01/03, improved to 50-55% on echo 02/18/15 Old [place] (myocardial infarction) 1993 Osteoarthritis Pulmonary embolism ([facility]) Pulmonary hypertension ([facility]) RVSP 58-63 on echo 01/01 S/P CABG [...] PLACEMENT intial AICD 2003, generator change 03/27/11, [employer] Telogen E110, s# [id number]; R V Lead - Guidant 0184, s# [id number] (08/15/03); RA Lead - Guidant Fineline II EZ Sterox 4469, s # [id number] (08/15/03) COLONOSCOPY CORONARY ARTERY BYPASS GRAFT 1994 [...] EF 40-45%, mild MR, mild TR, tr [place], RVSP 58-63 Current Medications: Outpatient Medications acetaminophen [...] of Onset Coronary artery disease Mother 60 [place] Alzheimer's disease Brother Other (see comment) Brother [...] lungs. - she was recently admitted at [facility] with what sounds like a COPD exacerbation. [...] Saravia MD Pulmonary and Critical Care Medicine [facility] Pulmonology documented in this encounter Plan [...] [place] | | | | | | [place] [address] | | | | | | [phone] | | | | | | | [...]
--- OUTSIDE RECORDS SUMMARY | ~2020-01-22 | XMS | Encounter Summary ---
Demographics + + + | Address | [address] | | | [place] [address] | + + + | Home Phone | | + + + | Preferred Language | Unknown | + + + | Marital Status | | + + + | Judaism Affiliation | 1041 | + + + | Race | or | + + + | Ethnic Group | Not or | + + + Author + + + | Author | [facility] | | | and [place] | + + + | Organization | [facility] | | [...] Team Providers + +------+ + | Care Television Journalist Name | Role | Phone | + +------+ + PCP | Unavailable | + +------+ + Encounter Details +--------+ + + + + | Date | Type | Department | Care Team | Description | +--------+ + + + + | 08/13/ | Hospital | [facility] | Harsha Avilez, | | | 2003 - | Encounter | [facility] | [address] | | | | | CARDIAC TELEMETRY | [address] | | | 08/15/ | | [address] | [place] [address] | | | 2003 | | [place] | [phone] | | | | | [address] | | | | | | [phone] | | | +--------+ + + + [...] [place] | | | | | | [place] [address] | | | | | | [phone] | | | | | | | | +--------+ + + + + | 07/22/ | Procedure | Cardiology | | | | 2020 | visit | | | | +--------+ + + + + documented as of this encounter Visit Diagnoses Not on filedocumented in this encounter"
--- OUTSIDE RECORDS SUMMARY | ~2020-01-22 | XMS | Encounter Summary ---
Demographics + + + | Address | [address] | | | [place] [address] | + + + | Home Phone | | + + + | Preferred Language | Unknown | + + + | Marital Status | | + + + | Taoism Affiliation | 1041 | + + + [...] Team Providers + +------+ + | Care Hydraulic Dredge Operator Name | Role | Phone | [...] [address] | | | | | [address] | [address] | | | | | [address] | [place] [address] | | | | | [place] [address] | | | | | | [phone] | | | +--------+ + + + [...] [address] | | | | | | [place] [address] | | | | | | [phone] | | | | | | | [...]
--- OUTSIDE RECORDS SUMMARY | ~2020-01-22 | XMS | Encounter Summary ---
Demographics + + + | Address | [address] | | | [place] [address] | + + + | Home Phone [...] Team Providers + +------+ + | Care Tax Accounting Assistant Name | Role | Phone | + +------+ + | Roxana Barajas PA-C | PCP | | + +------+ + Reason for Visit + +--------+ + | Reason | Onset | Comments | | | Date | | + +--------+ + | Medication Question | 05/29/ | | | | 2019 | | + +--------+ + Encounter Details +--------+ + + + + | Date | Type | Department | Care Team | Description | +--------+ + + + + | 05/29/ | Telephone | [facility] | Zheng Saravia | Medication Question | | 2019 | | PULMONOLOGY [address] | Eddie Bowden MD [address] | | | | | [address] | [address] | | | | | [address] | [place] [address] | | | | | [address] | [phone] | | | | | [phone] | | | +--------+ + + + [...] this encounter Miscellaneous Notes Telephone Encounter - Cullen Hidalgo, Floor Tech - 05/30/2019 2:34 PM PSTSpoke with daughter and let her know Dr. Saravia ordered Advair. She will pick this up as soon as it i s ready. Telephone Encounter - Zheng Saravia MD - 05/30/2019 11:50 AM PSTYes we can kuo ge from Dulera to Advair as long as her insurance covers it. I can send a prescription to [facility] pharmacy. TTelephone Encounter - Kamila Castañeda - 05/29/2019 12:24 PM PSTPharmacy , is kristie ng regarding Medication Question and would like a call back. Additional Call Details: Caller is wanting to know know if they can change medication from Dulera to Advair If this is a symptom based call, was patient offered triage? Not Applicable If this is a symptom based call and you were unable to immediately transfer the call to a amanda carvajal animal laboratory helper was caller made aware that if at any time she feels it is an emergency they sh ould call 911 or go to the nearest emergency room? not applicable documented in this encounter Plan of Treatment [...] | | | | | [place] [address] | | | | | | [phone] | | | | | | | | +--------+ + + + + | 07/22/ | Procedure | Cardiology | | | | 2020 | visit | | | | +--------+ + + + + documented as of this encounter Visit Diagnoses Not on filedocumented in this encounter"
--- OUTSIDE RECORDS SUMMARY | ~2020-01-22 | XMS | Encounter Summary ---
Demographics + + + | Address | [address] | | | [place] [address] | + + + | Home Phone | | + + + | Preferred Language | Unknown | + + + | Marital Status | | + + + | Yazidi Affiliation | 1041 | + + + [...] Team Providers + +------+ + | Care Deicer Repairer Electric Name | Role | Phone | + [...] Provider Unknown | | | | | [place], [place] | | | | | | [address] | (Fax) | | | | | [phone] | | | +--------+ + + + [...] | | | | | [place] [address] | | | | | | [phone] | | | | | | | [...]
--- OUTSIDE RECORDS SUMMARY | ~2020-01-22 | XMS | Encounter Summary ---
Demographics + + + | Address | [address] | | | [place] [address] | + + + | Home Phone | | + + + | Preferred Language | Unknown | + + + | Marital Status | | + + + | Mandaen Affiliation | 1041 | + + + | Race | or | + + + | Ethnic Group | Not or | + + + Author + + + | Author | [facility] | | | and [place] | + + + | Organization | [facility] | | | [...] Team Providers + +------+ + | Care Vascular Technician Name | Role | Phone | + +------+ + | Roxana Barajas PA-C | PCP | | + +------+ + Encounter Details +--------+ + + + + | Date | Type | Department | Care Team | Description | +--------+ + + + + | 02/26/ | Orders Only | [facility] | Tres Hewitt, | | | 2014 | | [place] [place] | [address] | | | | | [address] | [place] [address] | | | | | [place], [place] | [phone] | | | | | [address] | | | | | | [phone] | | | +--------+ + + + [...] [place] | | | | | | [place] [address] | | | | | | [phone] | | | | | | | [...] MV A Jarrod: 1.29 m/s MV Dec L[place]: 3.15 m/s2 MV | | | DecT: [...] TR Vmax: 2.95 m/s | | | Geotechnical Operating Engineer: JOSÉ ANTONIO Authenticated by: Tres Hewitt MD, FACMaximo, FACP, | | | [facility] Report Date/Time: 02-28-2015 18:06:49 | | [...] cmLVPWd: 1.26 cmLVOT Area: | | 3.40 [id number] Diam: 2.08 cm%FS: 17.35 %EF(Teich): 35.72 %ESV(Teich): [...] (A-L): 24.59 ml/m2LAAs | | A2C: 19.49 [id number] A-L A2C: 63.19 mlLALs A2C: 5.10 cmLAAs A4C: 15.24 [id number] | | A-L A4C: 35.39 mlLALs A4C: 5.57 cmRAAs: 15.89 [id number] A-L: 38.86 mlRAESV MOD: | | 40.41 mlRALs: 5.51 cmAo Diam: 2.92 cmAo/LA: 0.62LA Diam: 4.69 cmLA/Ao: 1.60AV | | maxP.55 mmHgAV meanP.97 mmHgAV Vmax: 1.54 m/Maurice Vmean: 1.17 m/Maurice VTI: | | 35.32 cmAVA Vmax: 2.32 cm2AVA (VTI): 2.20 vv3HPFM (Vmax): 0.00 cm2/m2AVAI (VTI): | | 0.00 cm2/m2LVOT maxP.45 mmHgLVOT meanP.42 mmHgLVSI Dopp: 38.73 | | ml/m2LVSV Dopp: 77.85 mlLVOT Vmax: 1.05 m/sLVOT Vmean: 0.74 m/sLVOT VTI: 22.88 | | cmMV A Jarrod: 1.29 m/sMV Dec Lapeer: 3.15 m/s2MV DecT: 273.13 msMV E Jarrod: 0.86 | | m/sMV E/A Ratio: 0.66MV PHT: 79.21 msMVA By PHT: 2.77 ld2Xnlrsq e': 0.03 | | m/sSeptal E/e': 22.10Lateral e': 0.06 m/sLateral E/e': 12.90PAEDP: 9.92 | | mmHgPRend P.92 mmHgPRend Vmax: 1.10 m/sPV maxP.12 mmHgPV Vmax: 1.12 | | m/sRAP: 5 mmHgRVSP: 39.84 mmHgTR maxP.84 mmHgTR Vmax: 2.95 m/s Geotechnical Operating Engineer: | | RKAuthenticated by: Tres Hewitt MD, [...] A Jarrod: 1.29 m/s | |MV Dec Lape[place]: 3.15 m/s2 | |MV DecT: 273.13 ms [...] |TR Vmax: 2.95 m/s | | | |Geotechnical Operating Engineer: RK | |Authenticated by: Tres Hewitt MD, [...]
--- OUTSIDE RECORDS SUMMARY | ~2020-01-22 | XMS | Encounter Summary ---
Demographics + + + | Address | [address] | | | [place] [address] | + + + | Home Phone [...] Team Providers + +------+ + | Care Carroting Machine Operator Name | Role | Phone | + +------+ + | Pcp, Prov Inactive | PCP | | + +------+ + Encounter Details +--------+ + + + + | Date | Type | Department | Care Team | Description | +--------+ + + + + | 12/13/ | Orders Only | [facility] | Provider, | | | 2018 | | SYSTEM GENERIC OP | [address] | | | | | CONVERSION [address] | [place]. | | | | | [address] [place], [place] | [place] [address] | | | | | [address] | | | | | | [phone] | | | +--------+ + + + [...] [place] | | | | | | [place] [address] | | | | | | [phone] | | | | | | | | +--------+ + + + + | 07/22/ | Procedure | Cardiology | | | | 2020 | visit | | | | +--------+ + + + + documented as of this encounter Visit Diagnoses Not on filedocumented in this encounter"
--- OUTSIDE RECORDS SUMMARY | ~2020-01-22 | XMS | Encounter Summary ---
Demographics + + + | Address | [address] | | | [place] [address] | + + + | Home Phone | | + + + | Preferred Language | Unknown | + + + | Marital Status | | + + + | Hoahaoism Affiliation | 1041 | + + + | Race | or | + + + | Ethnic Group | Not or | + + + Author + + + | Author | [facility] | | | and [place] | + + + | Organization | [facility] | | | [...] Team Providers + +------+ + | Care Project Director Name | Role | Phone | + [...] MD [address] | | | | | [place], [place] | [address] | | | | | [address] | [place] [address] | | | | | [phone] | [phone] | | | | | | | [...] [place] | | | | | | [place] [address] | | | | | | [phone] | | | | | | | [...] documented in this encounter Results External Lab: CBC (12/16/2018 10:42 AM PDT) + + + [...] + + + + | Non- | 3.90 | 3.70 - 5.10 | EXTERNAL | | | Red Blood | | 10*6/uL | LAB | | | Cells | | | | | | Counted | | | | | + + + + + + | Hemoglobin | 13.4 | 11.3 - 15.5 | [...]
--- OUTSIDE RECORDS SUMMARY | ~2020-01-22 | XMS | Encounter Summary ---
Demographics + + + | Address | [address] | | | [place] [address] | + + + | Home Phone | | + + + | Preferred Language | Unknown | + + + | Marital Status | | + + + | Restorationist Affiliation | 1041 | + + + | Race | or | + + + | Ethnic Group | Not or | + + + Author + + + | Author | [facility] | | | and [place] | + + + | Organization | [facility] | | | and [...] Team Providers + +------+ + | Care Process Analyst Name | Role | Phone | + +------+ + | Aleksander Humphries MD | PCP | | + +------+ + Encounter Details +--------+ + + + + | Date | Type | Department | Care Team | Description | +--------+ + + + + | 06/30/ | Documentati | [facility] | Zheng Saravia | | | 2020 | on | PULMONOLOGY [address] | Eddie Bowden MD [address] | | | | | [address] | [address] | | | | | [place], [place] | [place] [address] | | | | | [address] | [phone] | | | | | [phone] | | | +--------+ + + + [...] | | | | | [place] [address] | | | | | | [phone] | | | | | | | | +--------+ + + + + | 07/22/ | Procedure | Cardiology | | | | 2020 | visit | | | | +--------+ + + + + documented as of this encounter Visit Diagnoses Not on filedocumented in this encounter"
--- OUTSIDE RECORDS SUMMARY | ~2020-01-22 | XMS | Encounter Summary ---
Demographics + + + | Address | [address] | | | [place] [address] | + + + | Home Phone | | + + + | Preferred Language | Unknown | + + + | Marital Status | | + + + | Confucianist Affiliation | 1041 | + + + | Race | or | + + + | Ethnic Group | Not or | + + + Author + + + | Author | [facility] | | | and [place] | + + + | Organization | [facility] | | [...] Team Providers + +------+ + | Care Cad Engineer Name | Role | Phone | + +------+ + PCP | Unavailable | + +------+ + Encounter Details +--------+ + + + + | Date | Type | Department | Care Team | Description | +--------+ + + + + | 01/27/ | Hospital | [facility] | | | | 2006 | Encounter | MED CTR LABORATORY | | | | | | [address] | | | | | | [place] | | | | | | [address] | | | | | | [phone] | | | +--------+ + + + [...] [place] | | | | | | [facility] [place] [address] | | | | | | [phone] | | | | | | | | +--------+ + + + + | 07/22/ | Procedure | Cardiology | | | | 2020 | visit | | | | +--------+ + + + + documented as of this encounter Visit Diagnoses Not on filedocumented in this encounter"
--- OUTSIDE RECORDS SUMMARY | ~2020-01-22 | XMS | Encounter Summary ---
Demographics + + + | Address | [address] | | | [place] [address] | + + + | Home Phone [...] Team Providers + +------+ + | Care Billing Coordinator Name | Role | Phone | + +------+ + PCP | Unavailable | + +------+ + Encounter Details +--------+ + + + + | Date | Type | Department | Care Team | Description | +--------+ + + + + | 08/13/ | Hospital | [facility] | Harsha Avliez, | | | 2003 - | Encounter | HEART MED CTR | [address] | | | | | CARDIAC TELEMETRY | [address] | | | 08/15/ | | [address] | [place] [address] | | | 2003 | | [place] | [phone] | | | | | [address] | | | | | | [phone] | | | +--------+ + + + [...] [place] | | | | | | [place] [address] | | | | | | [phone] | | | | | | | | +--------+ + + + + | 07/22/ | Procedure | Cardiology | | | | 2020 | visit | | | | +--------+ + + + + documented as of this encounter Visit Diagnoses Not on filedocumented in this encounter"
--- OUTSIDE RECORDS SUMMARY | ~2020-01-22 | XMS | Encounter Summary ---
Demographics + + + | Address | [address] | | | [place] [address] | + + + | Home Phone [...] Team Providers + +------+ + | Care Local Sales Associate Name | Role | Phone | + +------+ + | Aleksander Humphries MD | PCP | | + +------+ + Reason for Visit + + + | Reason | Comments | + + + | Device Check | | | (In-office) | | + + + Follow Up (Routine) +--------+--------+ + + + + | Status | Reason | Specialty | Diagnoses / | Referred By | Referred To | | | | | Procedures | Contact | Contact | +--------+--------+ + + + + | Closed | | Internal | Diagnoses | Center, | [facility], | | | | Medicine - | Screening | Luís | Barak | | | | Clinical | Complete 6 | | MD P[facility] | | | | Cardiac | MO FU | Health | [address] | | | | Electrophysio | Procedures | | DR [place] | | | | logy / | OFFICE VISIT | | [place], [place] | | | | Cardiology | REGULAR | | [address] Phone: | | | | | | | [phone] | | | | | | | Fax: | | | | | | | [phone] | +--------+--------+ + + + + Encounter Details +--------+ + + + + | Date | Type | Department | Care Team | Description | +--------+ + + + + | 01/02/ | Procedure | [facility] | | Cardiac | | 2019 | visit | CARDIOLOGY [place] | | defibrillator in | | | | [address] | | situ (Primary Dx) | | | | [place], [place] | | | | | | [address] | | | | | | [phone] | | | +--------+ + + + [...] documented as of this encounter Procedure Notes Jami Barron RN - 01/03/2020 3:30 PM PDTAssociated Order(s): DEVICE INTERROGATIONPro cedure(s): DEVICE INTERROGATIONPre-Procedure Diagnose(s): Cardiac defibrillator in situDevic e information was obtained from provider's office note on 01/03/2020: Device Interrogation: Her dual-chamber [employer] ICD was interrogated and found to have stable sensing, pacing, and impedance values. She has a history of no capture from the atrial lead and the device remains programmed in a DDD mode. Brief atrial runs have been n oted but no atrial fibrillation has been noted or any significant ventricular episodes since last interrogation. She paces less than 1% of the time in the ventricle. Device interrogation done by Erin Caba Any events or changes listed in office note. See device data attached to scheduled encounter for additional details. grain trader: ONUR Farrell P DTdocumented in this encounter Plan of Treatment +--------+ [...] [place] | | | | | | [place] [address] | | | | | | [phone] | | | | | | | [...] documented in this encounter Results Device Interrogation (01/03/2020 12:00 AM PDT) + + + | Narrative | Performed At | + + + | Jami Blair | [facility] | | ONUR Barron 01/03/2020 4:03 PMDevice information was obtained | | | from provider's office note on 01/03/2020: Device Interrogation: Her | | | dual-chamber [employer] ICD was interrogated and found to [...] | | | encounter for additional details. grain trader: ONUR Farrell | | | | | |Device interrogation done by Erin Caba | | | | | |Any events or changes listed in office note. | | | | | |See device data attached to scheduled encounter for additional | | |details. | | | | | |grain trader: ONUR Farrell | | + + + + + | Procedure Note | + + | Jami Barron RN - 01/03/2020 3:30 PM PDT Device information was obtained from | | provider's office note on 01/03/2020:Device Interrogation: Her dual-chamber [employer]lick | | Scientific ICD was interrogated and found to [...] in the ventricle.Device interrogation done by Erin Osborn events or changes listed in office note.See device data attached to | | scheduled encounter for additional details. DILAN De Oliveira: ONUR Farrell | |See device data attached [...]
--- OUTSIDE RECORDS SUMMARY | ~2020-01-22 | XMS | Encounter Summary ---
Demographics + + + | Address | [address] | | | [place] [address] | + + + | Home Phone [...] Team Providers + +------+ + | Care Honey Producer Name | Role | Phone | + +------+ + PCP | Unavailable | + +------+ + Encounter Details +--------+ + + + + | Date | Type | Department | Care Team | Description | +--------+ + + + + | 02/09/ | Hospital | [facility] | | | | 2005 - | Encounter | MED CTR MED ONC | | | | | | [address] | | | | 02/10/ | | [place] [address] | | | | 2005 | | [phone] | | | +--------+ + + + [...] [place] | | | | | | [place] [address] | | | | | | [phone] | | | | | | | | +--------+ + + + + | 07/22/ | Procedure | Cardiology | | | | 2020 | visit | | | | +--------+ + + + + documented as of this encounter Visit Diagnoses Not on filedocumented in this encounter"
--- OUTSIDE RECORDS SUMMARY | ~2020-01-22 | XMS | Encounter Summary ---
Demographics + + + | Address | [address] | | | [place] [address] | + + + | Home Phone | | + + + | Preferred Language | Unknown | + + + | Marital Status | | + + + | Mormon Affiliation | 1041 | + + + | Race | or | + + + | Ethnic Group | Not or | + + + Author + + + | Author | [facility] | | | and [place] | + + + | Organization | [facility] | | [...] Team Providers + +------+ + | Care Drum Barker Operator Name | Role | Phone | [...] + + | 10/15/ | Telephone | [facility] | Manuel Wesley | Other | | 2019 | | ORTHOPEDIC SURGERY | [address] | | | | | [address] | [facility] | | | | | [place] | [place] [address] | | | | | [address] | [phone] | | | | | [phone] | | | +--------+ + + + [...] sees Dr Aleksander Humphries. Patient has a special needs child caregiver Kasandra who I spoke with. I let [...] [place] | | | | | | [place] [address] | | | | | | [phone] | | | | | | | | +--------+ + + + + | 07/22/ | Procedure | Cardiology | | | | 2020 | visit | | | | +--------+ + + + + documented as of this encounter Visit Diagnoses Not on filedocumented in this encounter"
--- OUTSIDE RECORDS SUMMARY | ~2020-01-22 | XMS | Encounter Summary ---
Demographics + + + | Address | [address] | | | [place] [address] | + + + | Home Phone | | + + + | Preferred Language | Unknown | + + + | Marital Status | | + + + | Scientologist Affiliation | 1041 | + + + | Race | or | + + + | Ethnic Group | Not or | + + + Author + + + | Author | [facility] | | | and [place] | + + + | Organization | [facility] | | | [...] Team Providers + +------+ + | Care Automation Qa Lead Name | Role | Phone | + +------+ + PCP | Unavailable | + +------+ + Encounter Details +--------+ + + + + | Date | Type | Department | Care Team | Description | +--------+ + + + + | 03/31/ | Hospital | [facility] | Ferimn Lydia | | | 2006 | Encounter | MED CTR EMERGENCY | MD [address] | | | | | [place] [address] | [facility], | | | | | [place], [place] | [place] [address] | | | | | [address] | [phone] | | | | | [phone] | | | +--------+ + + + [...] [place]Z | | | | | | [place] [address] | | | | | | [phone] | | | | | | | | +--------+ + + + + | 07/22/ | Procedure | Cardiology | | | | 2020 | visit | | | | +--------+ + + + + documented as of this encounter Visit Diagnoses Not on filedocumented in this encounter"
--- OUTSIDE RECORDS SUMMARY | ~2020-01-22 | XMS | Encounter Summary ---
Demographics + + + | Address | [address] | | | [place] [address] | + + + | Home Phone | | + + + | Preferred Language | Unknown | + + + | Marital Status | | + + + | Tenriism Affiliation | 1041 | + + + | Race | or | + + + | Ethnic Group | Not or | + + + Author + + + | Author | [facility] | | | and [place] | + + + | Organization | [facility] [...] Team Providers + +------+ + | Care Correctional Medicine Physician Name | Role | Phone | + +------+ + | Jasmin Stephens MD | PCP | | + +------+ + Encounter Details +--------+ + + + + | Date | Type | Department | Care Team | Description | +--------+ + + + + | 04/16/ | Hospital | [facility] | Conversion | Diagnosis unknown | | 2016 | Encounter | CONVERSION [address] | Transaction, | | | | | [address] | Provider Unknown | | | | | [place] | [phone] | | | | | [address] | | | | | | [phone] | | | +--------+ + + + [...] [place] | | | | | | [facility] [place] [place] [address] | | | | | | [phone] | | | | | | | [...]
--- OUTSIDE RECORDS SUMMARY | ~2020-01-22 | XMS | Encounter Summary ---
Demographics + + + | Address | [address] | | | [place] [address] | + + + | Home Phone [...] Team Providers + +------+ + | Care History Department Chair Name | Role | Phone | + [...] Documentati | [facility] | Cullen Hidalgo, | Other (In Home) | | 2020 | on | PULMONOLOGY [address] | Lace Roller Operator | | | | | [address] | | | | | | [place], [place] | | | | | | [address] | | | | | | [phone] | | | +--------+ + + + [...] as of this encounter Progress Cullen Cristina, Lace Roller Operator - 06/29/2019 4:33 PM PSTFaxed order to discontinue oxyge n at In Home. Received a confirmation for [phone]. documented in this encounter Plan of Treatment [...] [place] | | | | | | [place] [address] | | | | | | [phone] | | | | | | | | +--------+ + + + + | 07/22/ | Procedure | Cardiology | | | | 2020 | visit | | | | +--------+ + + + + documented as of this encounter Visit Diagnoses Not on filedocumented in this encounter"
--- OUTSIDE RECORDS SUMMARY | ~2020-01-22 | XMS | Encounter Summary ---
Demographics + + + | Address | [address] | | | [place] [address] | + + + | Home Phone | | + + + | Preferred Language | Unknown | + + + | Marital Status | | + + + | Shinto Affiliation | 1041 | + + + [...] Team Providers + +------+ + | Care Media Specialist Name | Role | Phone | [...] | | BS ICD 3 | Roxana H, | Cardiology | | | | | month remote | PA-C [address] | [place] | | | | | Procedures | [address] | [address] | | | | | REMOTE | [address] | | | | | DEVICE CHECK | [address] | [place], [place] | | | | | | [facility] | [address] | | | | | | [place] | Phone: | | | | | | [address] | [phone] | | | | | | Phone: | Fax: | | | | | | [phone] | [phone] | | | | | | Fax: | | | | | | | [phone] | | +--------+--------+ + + + + Encounter Details +--------+ + + + + | Date | Type | Department | Care Team | Description | +--------+ + + + + | 03/13/ | Procedure | [facility] | | Cardiac | | 2019 | visit | CARDIOLOGY [place] | | defibrillator in | | | | [address] | | situ (Primary Dx) | | | | [place], [place] | | | | | | [address] | | | | | | [phone] | | | +--------+ + + + [...] encounter Procedure Notes Girish Neal RN - 03/13/2019 8:00 AM PDTAssociated Order(s): DEVICE INTERROGATION- REM OTEProcedure(s): DEVICE INTERROGATION- REMOTEPre-Procedure Diagnose(s): Cardiac defibrillato r in situ ICD REMOTE INTERROGATION REPORT Name: Yuliana [place] Galindo PCP: Roxana Barajas PA-C : 1940 Primary cardiology provider: Trse Hewitt Primary electrophysiology provider: Erin Caba Device nuclear pharmacist: [email or web address] Device type: Dual chamber Battery Longevity: 3 years RA Pacin% RV Pacin% INTERROGATION RESULTS: Please see the full interrogation report attached Known history of atrial flutter or atrial fibrillation: No Current antithrombotic therapy including: aspirin Mode switches: 3 ATR events with EGM's noted. Longest episode lasted lasted 7 seconds. All 3 EGM's are 1:1 and appear to be sinus tachycardia. VT/VF Detections: 8 ventricular events noted, and only 6 with EGM's. All 6 appear to be sinus tachycardia as they are 1:1. Lead function: Lead impedance and threshold value trends have been reviewed and are accepta ble based on most recent evaluation. Follow up: The next scheduled interrogation will be in 3 months in the cardiac device clini c. Additional comments: None. IMPRESSION: 1. Normal ICD function. 2. Atrial arrhythmias noted above. 3. Ventricular events appear to be sinus tachycardias. Testing reviewed by: Girish Neal RN Associated attestation - Barak Caba MD - 03/19/2019 5:01 PM PSTDevice inte rrogation reviewed. Agree with assessment and plan as outlined. Atrial run noted. Needs EP follow-up in office.documented in this encounter Plan of Treatment +--------+ [...] [place] | | | | | | [place] [address] | | | | | | [phone] | | | | | | | [...] Barajas PA-C : 1940MRN: | | | [id number] Primary cardiology provider: Tres Hewitt Primary | | | electrophysiology provider: Erin Caba Device nuclear pharmacist: | | | [email or web address] Device type: Dual chamber Battery Longevity: 3 [...]
--- OUTSIDE RECORDS SUMMARY | ~2020-01-22 | XMS | Encounter Summary ---
Demographics + + + | Address | [address] | | | [place] [address] | + + + | Home Phone | | + + + | Preferred Language | Unknown | + + + | Marital Status | | + + + | Mu-Ism Affiliation | 1041 | + + + | Race | or | + + + | Ethnic Group | Not or | + + + Author + + + | Author | [facility] | | | and [place] | + + + | Organization | [facility] | | | [...] Team Providers + +------+ + | Care Jigger Operator Name | Role | Phone | [...] | | 02/10/ | | [place] [address] | | | | 2005 | | [phone] | | | +--------+ + + + [...] | | | | | | [place] [address] | | | | | | [phone] | | | | | | | | +--------+ + + + + | 07/22/ | Procedure | Cardiology | | | | 2020 | visit | | | | +--------+ + + + + documented as of this encounter Visit Diagnoses Not on filedocumented in this encounter"
--- OUTSIDE RECORDS SUMMARY | ~2020-01-22 | XMS | Encounter Summary ---
Demographics + + + | Address | [address] | | | [place] [address] | + + + | Home Phone [...] Team Providers + +------+ + | Care Senior Talent Acquisition Specialist Name | Role | Phone | + +------+ + | Aleksander Humphries MD | PCP | | + +------+ + Reason for Referral Diagnostic/Screening (Routine) + +--------+ + + + + | Status | Reason | Specialty | Diagnoses / | Referred By | Referred To | | | | | Procedures | Contact | Contact | + +--------+ + + + + | Pending | | Cardiology | Diagnoses | Gertrudis, | | | Review | | | Ischemic | Barak | | | | | | cardiomyopat | MD [address] | | | | | | hy | [address] | | | | | | Procedures | [address] | | | | | | ECHO | NAIN [address] | | | | | | Complete | [place] | | | | | | | [address] | | | | | | | Phone: | | | | | | | [phone] | | | | | | | Fax: | | | | | | | [phone] | | + +--------+ + + + + Reason for Visit + + + | Reason | Comments | + + + | Follow-up | | + + + Follow Up [...] | | Medicine - | Screening | [place] | Barak | | | | Clinical | Complete 6 | [facility] | MD [address] | | | | Cardiac | MO FU | Health | [address] | | | | Electrophysio | Procedures | | DR [address] | | | | logy / | OFFICE VISIT | | [place], [place] | | | | Cardiology | REGULAR | | [address] Phone: | | | | | | | [phone] | | | | | | | Fax: | | | | | | | [phone] | +--------+--------+ + + + + Encounter Details +--------+---------+ + + + | Date | Type | Department | Care Team | Description | +--------+---------+ + + + | 01/02/ | Office | [facility] | Barak Suarez | Ischemic | | 2019 | Visit | CARDIOLOGY [place] | MD [address] | cardiomyopathy | | | | [address] | [address] | (Primary Dx); | | | | [place], [place] | [place] [address] | Inducible | | | | [address] | [phone] | ventricular | | | | [phone] | | tachycardia (HCC); | | | | | | Status post internal | | | | | | cardiac | | | | | | defibrillator | | | | | | procedure | +--------+---------+ + + + Social History [...] + documented in this encounter Progress Notes Barak Suarez MD - 01/03/2020 3:30 PM PDTFormatting of this note might be dif ferent from the original. Subjective: Referring MD: Luís Jasso H* Chief Complaint Patient presents with Follow-up HPI: This is a 79 y.o. female who presents today for follow-up of her dual-chamber ICD. Ms Errol Galindo reports has been doing well over the past several months with no new medical issues, hospitalizations, or procedures. She continues to do her usual activity without any new gutierrez itations or symptoms. She denies any current chest pain, shortness of breath, dizziness, li ghtheadedness, palpitations, or recent syncope. Past Medical History: Diagnosis Date Anxiety With panic attacks Asthma Community acquired pneumonia 2011 COPD (chronic obstructive pulmonary disease) ([facility]) h/o chronic bronchitis, long h/o tobacco abuse Coronary artery disease involving port lions coronary artery s/p CABG x3 (SVG to LAD, SVG to RCA, SVG to OM3) 1994, s/p KERA to SVG to OM3 01/01 Diabetes mellitus type 2 in obese ([facility]) diet controlled History of syncope 2003 secondary to VT 2003, one recurrent episode remotely since her AICD was implanted. Hyperlipidemia Hypertension Ischemic dilated cardiomyopathy ([facility]) EF was 27% on echo 08/01/03, improved to 50-55% on echo 02/18/15 Old NE (myocardial infarction) 1993 Osteoarthritis Pulmonary embolism ([facility]) AC Pulmonary hypertension ([facility]) RVSP 58-63 on echo 01/01 S/P CABG x 3 1994 SVG>LAD, SVG>OM, SVG>RCA (she thought she had 4 grafts, which has been on her records for years, but only 3 vein grafts present on cath 12/27/17) Status post internal cardiac defibrillator procedure 08/15/2003 [...] PLACEMENT intial AICD 2003, generator change 03/27/11, [employer] Telogen E110, s# [id number]; R V Lead - Guidant 0184, s# [id number] (08/15/03); RA Lead - Guidant Fineline II EZ Sterox 4469, s # [id number] (08/15/03) COLONOSCOPY CORONARY ARTERY BYPASS GRAFT 1994 [...] EF 40-45%, mild MR, mild TR, tr DE, RVSP 58-63 Family History Problem Relation Age of Onset Coronary artery disease Mother 60 NE Alzheimer's disease Brother Other (see comment) Brother Diabetes Mellitus II Thyroid disease Daughter Social History Socioeconomic History Marital status: Spouse name: Not on file Number of children: Not on file Years of education: Not on file Highest education level: Not on file Tobacco Use Smoking status: Heavy Tobacco Smoker Packs/day: 0.50 Smokeless tobacco: Never Used Tobacco comment: cut down to 0.5 ppd several weeks ago Substance and Sexual Activity Alcohol use: Not Currently Review of Systems: Ten system review negative unless noted in HPI. Current Outpatient Medications Medication Sig Dispense Refill albuterol (VENTOLIN HFA) 90 mcg/puff inhaler 2 puffs four times daily as needed. allopurinol (ZYLOPRIM) 100 mg tablet Take 100 mg by mouth daily. aspirin 81 MG tablet Take 81 mg by mouth daily. atorvaSTATin (LIPITOR) 40 mg tablet Take 40 mg by mouth. Calcium Carb-Cholecalciferol (CALCIUM-VITAMIN D) 600-400 MG-UNIT TABS Take 1 tablet by mouth 2 (two) times daily. cholecalciferol (CHOLECALCIFEROL) 1000 units TABS Take 1,000 Units by mouth daily. clopidogrel (PLAVIX) 75 mg tablet Take 75 mg by mouth. cyanocobalamin (VITAMIN B-12) 1000 MCG tablet Take 1,000 mcg by mouth daily. escitalopram (LEXAPRO) 20 mg tablet Take 20 mg by mouth daily. furosemide (LASIX) 20 mg tablet Take 20 mg by mouth Daily. gabapentin (NEURONTIN) 300 mg capsule Take 300 mg by mouth 2 times daily. ipratropium (ATROVENT HFA) 17 mcg/puff inhaler Take or use as needed. isosorbide mononitrate (IMDUR) 30 mg ER tablet Take 1 tablet by mouth daily. KCl in Dextrose-NaCl 10-5-0.2 MEQ/L-%-% SOLN Take 1 tablet by mouth daily lisinopril (PRINIVIL, ZESTRIL) 10 mg tablet Take 10 mg by mouth Daily. loratadine (CLARITIN) 10 mg tablet Take 10 mg by mouth Daily as needed. magnesium oxide (MAG-OX) 400 mg tablet Take 400 mg by mouth Daily. metFORMIN (GLUCOPHAGE) 500 mg tablet Take 500 mg by mouth 2 times daily (with breakfast & dinner). metoprolol succinate (TOPROL-XL) 25 mg 24 hr tablet Take 25 mg by mouth Daily. PARoxetine (PAXIL) 20 mg tablet Take 20 [...] No current facility-administered medications for this visit. No Known Allergies Objective: Vitals: 01/03/20 1535 BP: 149/83 Pulse: 94 Weight: 92.2 kg (203 lb 4.8 oz) Height: 1.6 m (5' 3") Body mass index is 36.01 kg/m. Exam: General: Patient is alert, pleasant, cooperative, and in no acute distress. Eyes: Sclerae anicteric. Ears: External ears normal. Nose: External nose normal. Oral exam: No oral lesions noted. Neck: Trachea midline. No thyromegaly. No elevation of jugular venous pressure. No olea tid bruits. Lungs: Clear to auscultation bilaterally. No wheezes, rales, or rhonchi. Heart: Regular rate and rhythm. Normal S1/S2. No murmurs, gallops, rubs. Abdomen: Bowel sounds present. Soft, nondistended. No masses or hepatosplenomegaly noted . No significant tenderness noted. Extremities: No clubbing or cyanosis noted. No lower extremity edema noted. Pulses: Intact bilateral radial and pedal pulses. Musculoskeletal: No obvious arthritic change noted of the knees. Skin: Warm and dry. Psychiatric: Patient is alert and oriented to person, place, and day. Mood and affect nor mal. Neurological: Patient is intact to light touch in the upper and lower extremities bilateral ly. Left pocket: Incision is well-healed with no erythema, induration, discharge, or pre-erosio n Review of studies: ECG: Normal sinus rhythm at 93 bpm, ventricular premature complex, no significant change fr om May 2019 Device Interrogation: Her dual-chamber [employer] ICD was interrogated and found to [...] 1% of the time in the ventricle. Impression/Plan: Yuliana was seen today for follow-up. Diagnoses and all orders for this visit: Ischemic cardiomyopathy - ECG 12 lead - ECHO Complete; Future Inducible ventricular tachycardia (HCC) Status post internal cardiac defibrillator procedure 1) Ischemic cardiomyopathy - She has a history of ischemic cardiomyopathy with an ejection fraction of 40-45% on echocardiogram performed in 2018. She is status post stents to the s aphenous graft to the obtuse marginal branch around that time. She continues to follow [facility] cardiology. She will have a follow-up echocardiogram prior to her next visit. 2) Ventricular tachycardia - She has a history of syncope in the past and underwent electro physiology study in 1999 which demonstrated inducible ventricular dysrhythmias by report. She underwent implantation of a dual-chamber ICD at that time. She denies any subsequent s hocks through her defibrillators. 3) s/p DC ICD - She had a dual-chamber ICD implanted in July 2003 following inducible vent ricular tachycardia with a history of coronary artery disease and syncope. A generator gerardo nge was performed in March 2010. On the operative report from that time it was noted th at there was no capture from the right atrial lead and the device was programmed to a VDD mo de. Evaluation the office has confirmed no capture from the right atrial lead. Her chest x-ray performed previously noted that the lead was pulled back into the superior vena cava with the lead tip likely at the junction of the superior vena cava and right atrium as some atrial sensing is still noted. The lead likely pulled back following implantation in 2003. As she does not currently require atrial pacing with no significant ventricular pacing in a single chamber mode we will continue with observation. Should dual-chamber pacing be re quired she would require revision of her system. Her device was interrogated today with sta ble function noted. We will plan for remote transmission in 3 months with follow-up in the office in 6 months. The pacing mode is currently VDD with a lower rate limit of 50 bpm. This encounter was dictated with voice recognition software and may contain inadvertent rec ognition errors. documented in this encounter Plan of Treatment +--------+ + + + + | Date | Type | Specialty | Care Team | Description | +--------+ + + + + | 03/18/ | Procedure | Cardiology | | | | 2019 | visit | | | | +--------+ + + + + | 07/22/ | Office | Cardiology | Barak Suarez | | | 2020 | Visit | | MD [address] | | | | | | [address] | | | | | | [place] [address] | | | | | | [phone] | | | | | | | [...] documented in this encounter Results ECHO Complete (01/11/2020 12:23 PM PDT) + + + | Narrative | Performed At | + + + | ECHO DONE AT | | | [facility] | | + + + ECG 12 [...] INTERPRETAT | Please refer to | | [facility] | | | ION TEXT | Providers office visit | | | | | | note for Providers | | | | | | Interpretation.Confirmed | | | | | | by BARAK SUAREZ MD | | | | | | ([id number]) on 01/08/2020 | | | | | [...] + | Diagnosis | + + | Ischemic cardiomyopathy - Primary Other specified forms of chronic ischemic heart | | disease | + + | Inducible ventricular tachycardia (HCC) Paroxysmal ventricular tachycardia | + + | Status post internal cardiac defibrillator procedure Automatic implantable cardiac | | defibrillator in situ | + + documented in this encounter
--- OUTSIDE RECORDS SUMMARY | ~2020-01-22 | XMS | Encounter Summary ---
Demographics + + + | Address | [address] | | | [place] [address] | + + + | Home Phone [...] Team Providers + +------+ + | Care Employee Relations Director Name | Role | Phone | + +------+ + | Aleksander Humphries MD | PCP | | + +------+ + Reason for Visit + +--------+ + | Reason | Onset | Comments | | | Date | | + +--------+ + | Appointment | 12/12/ | | | | 2020 | | + +--------+ + Encounter Details +--------+ + + + + | Date | Type | Department | Care Team | Description | +--------+ + + + + | 12/12/ | Telephone | [facility] | Barak Caba | Appointment | | 2019 | | CARDIOLOGY [place] | [address] | | | | | [address] | [address] [facility] | | | | | [place], [place] | [place] [address] | | | | | [address] | [phone] | | | | | [phone] | | | +--------+ + + + [...] this encounter Miscellaneous Notes Telephone Encounter - Irma Whittington - 12/13/2019 2:33 PM PDTCalling patient to resche dule apt w/ Gertrudis. Spoke w/ patients daughter and told her to have pt call me back. She s tated that she would let her know. Irma Whittington documented in this enc ounter Plan of Treatment +--------+ + + + [...] [address] | | | | | | [place] [address] | | | | | | [phone] | | | | | | | | +--------+ + + + + | 07/22/ | Procedure | Cardiology | | | | 2020 | visit | | | | +--------+ + + + + documented as of this encounter Visit Diagnoses Not on filedocumented in this encounter"
--- OUTSIDE RECORDS SUMMARY | ~2020-01-22 | XMS | Encounter Summary ---
Demographics + + + | Address | [address] | | | [place] [address] | + + + | Home Phone [...] | Author | [facility] | | | and [place] | + + + | Organization | [facility] | | | [...] Team Providers + +------+ + | Care Frame Stripper Name | Role | Phone | + +------+ + | Roxana Barajas PA-C | PCP | | + +------+ + Encounter Details +--------+ + + + + | Date | Type | Department | Care Team | Description | +--------+ + + + + | 03/27/ | Orders Only | [facility] | Arthur Childers | | | 2009 | | [facility] | MD Johnnie [address] | | | | | CLINICAL LABORATORY | [address] [place], | | | | | [address] | [place] [address] | | | | | [place], [place] | [phone] | | | | | [address] | | | | | | [phone] | | | +--------+ + + + [...] [address] | | | | | | [place] [address] | | | | | | [phone] | | | | | | | [...] EXTERNAL LAB | | Testing performed at [facility];[address] [place] [address];[place] [address] MRSA PCR | | | NEGATIVE Testing performed at | | | [address];[place] [address] | | + + + + +---------+ + + | Performing | Address | City/State/Zipcode | Phone Number | | Organization | | | | + +---------+ + + | EXTERNAL LAB | | | | + +---------+ + + documented in this encounter Visit Diagnoses Not on filedocumented in this encounter"
--- OUTSIDE RECORDS SUMMARY | ~2020-01-22 | XMS | Encounter Summary ---
Demographics + + + | Address | [address] | | | [place] [address] | + + + | Home Phone [...] Team Providers + +------+ + | Care Motorcycle Delivery Driver Name | Role | Phone | + +------+ + PCP | Unavailable | + +------+ + Encounter Details +--------+ + + + + | Date | Type | Department | Care Team | Description | +--------+ + + + + | 03/31/ | Hospital | [facility] | Fermin Lydia | | | 2006 | Encounter | [facility] | MD [address] | | | | | [address] | [facility], | | | | | [place], [place] | [place] [address] | | | | | [address] | [phone] | | | | | [phone] | | | +--------+ + + + [...] [address] | | | | | | [place] [address] | | | | | | [phone] | | | | | | | | +--------+ + + + + | 07/22/ | Procedure | Cardiology | | | | 2020 | visit | | | | +--------+ + + + + documented as of this encounter Visit Diagnoses Not on filedocumented in this encounter"
--- OUTSIDE RECORDS SUMMARY | ~2020-01-22 | XMS | Encounter Summary ---
Demographics + + + | Address | [address] | | | [place] [address] | + + + | Home Phone | | + + + | Preferred Language | Unknown | + + + | Marital Status | | + + + | Sabianism Affiliation | 1041 | + + + | Race | or | + + + | Ethnic Group | Not or | + + + Author + + + | Author | [facility] | | | and [place] | + + + | Organization | [facility] | | [...] Team Providers + +------+ + | Care Guard Sergeant Name | Role | Phone | + +------+ + | Roxana Barajas PA-C | PCP | | + +------+ + Encounter Details +--------+ + + + + | Date | Type | Department | Care Team | Description | +--------+ + + + + | 12/30/ | Orders Only | [facility] | Markos Dawn | Essential (primary) | | 2019 | | CARDIOLOGY [place] | [address] | hypertension; Mixed | | | | [address] | [address] | hyperlipidemia | | | | [address] | [place] [address] | | | | | [place] | [phone] | | | | | [address] | | | | | | [phone] | | | +--------+ + + + [...] [address] | | | | | | [place] [address] | | | | | | [phone] | | | | | | | [...]
--- OUTSIDE RECORDS SUMMARY | ~2020-01-22 | XMS | Encounter Summary ---
Demographics + + + | Address | [address] | | | [place] [address] | + + + | Home Phone | | + + + | Preferred Language | Unknown | + + + | Marital Status | | + + + | Yazidism Affiliation | 1041 | + + + | Race | or | + + + | Ethnic Group | Not or | + + + Author + + + | Author | [facility] | | | and [place] | + + + | Organization | [facility] | | | [...] Team Providers + +------+ + | Care Bill Checker Name | Role | Phone | + +------+ + | Roxana Barajas PA-C | PCP | | + +------+ + Reason for Visit + + + | Reason | Comments | + + + | Follow-up | annual | + + + Follow Up (Routine) +--------+--------+ + + + + | Status | Reason | Specialty | Diagnoses / | Referred By | Referred To | | | | | Procedures | Contact | Contact | +--------+--------+ + + + + | Closed | | Internal | Diagnoses | Gertrudis, | Gertrudis, | | | | Medicine - | yearly | Barak | Barak | | | | Clinical | follow up | MD Pablito | MD Pablito | | | | Cardiac | Procedures | [address] | | | | Electrophysio | OFFICE VISIT | [address] | DR [place] | | | | logy / | REGULAR | [place] | [place], [place] | | | | Cardiology | | [place], [place] | [address] Phone: | | | | | | [phone] | [phone] | | | | | | Phone: | Fax: | | | | | | [phone] | [phone] | | | | | | Fax: | | | | | | | [phone] | | +--------+--------+ + + + + Encounter Details +--------+---------+ + + + | Date | Type | Department | Care Team | Description | +--------+---------+ + + + | 06/12/ | Office | [facility] | Barak Caba | Ischemic | | 2020 | Visit | [facility] | MD [address] | cardiomyopathy | | | | [address] | [address] | (Primary Dx); | | | | [place], [place] | [place] [address] | Inducible | | | | [address] | [phone] | ventricular | | | | [phone] | | tachycardia (HCC); | | | [...] + + + | Blood Pressure | 98/56 | 06/12/2019 1:39 PM | | | | | PST | | + + + + + | Pulse | 105 | 06/12/2019 1:39 PM | | | | | PST | | + + + + + | Temperature | - | - | | + + + + + | Respiratory Rate | 20 | 06/12/2019 1:39 PM | | | | | PST | | + + + + + | Oxygen Saturation | 94% | 06/12/2019 1:39 PM | | | | | PST | | + + + + + | Inhaled Oxygen | - | - | | | Concentration | | | | + + + + + | Weight | 101.2 kg (223 lb) | 06/12/2019 1:39 PM | | | | | PST | | + + + + + | Height | 157.5 cm (5' 2") | 06/12/2019 1:39 PM | | | | | PST | | + + + + + | Body Mass Index | 40.79 | 06/12/2019 1:39 PM | | | | | PST | | + + + + + documented in this encounter Progress Notes Barak Caba MD - 06/12/2019 1:30 PM PSTFormatting of this note might be dif ferent from the original. Subjective: Referring MD: No ref. provider found Chief Complaint Patient presents with Follow-up annual HPI: This is a 78 y.o. female who presents today for follow-up of her dual-chamber ICD. Ms Errol Galindo was last seen in April 2018. She is not sure of any of her medications and her cu rrent medication list in the computer may not be up-to-date. She reports she has not had an y hospitalizations, surgeries, or procedures since her last visit. She continues to do her usual activity without any new limitations or symptoms. She denies any current chest pain, shortness of breath, dizziness, lightheadedness, palpitations, or recent syncope. Past Medical History: Diagnosis Date Anxiety With panic attacks Asthma CHF (congestive heart failure) ([facility]) chronic systolic heart failure, EF was 27% in the past, improved to 50-55% on echo 02/18/15 Community acquired pneumonia 2011 COPD (chronic obstructive pulmonary disease) ([facility]) h/o chronic bronchitis, long h/o tobacco abuse Coronary artery disease involving grand ronde tribes coronary artery s/p CABG x3 (SVG to LAD, SVG to RCA, SVG to OM3) 1994, s/p KERA to SVG to OM3 01/01 Diabetes mellitus type 2 in obese (HCC) diet controlled History of syncope 2003 secondary to VT 2003, one recurrent episode remotely since her AICD was implanted. Hyperlipidemia Hypertension Ischemic dilated cardiomyopathy (HCC) EF was 27% on echo 08/01/03, improved to 50-55% on echo 02/18/15 Old AL (myocardial infarction) 1993 Osteoarthritis Pulmonary embolism (HCC) [...] PLACEMENT intial AICD 2003, generator change 03/27/11, [employer] Telogen E110, s# [id number]; R V Lead - Guidant 0184, s# [id number] (08/15/03); RA Lead - Guidant Fineline II EZ Sterox 4469, s # [id number] (08/15/03) COLONOSCOPY CORONARY ARTERY BYPASS GRAFT 1994 [...] EF 40-45%, mild MR, mild TR, tr [place], RVSP 58-63 Family History Problem Relation Age of Onset Coronary artery disease Mother 60 [place] Alzheimer's disease Brother Other (see comment) Brother [...] Refill acetaminophen (TYLENOL) 325 mg tablet Take or [...] week, 4.5 mg three days a week. (Patie nt not taking: Reported on 06/12/2019) No current facility-administered medications for this visit. No Known Allergies Objective: Vitals: 06/12/19 1339 BP: 98/56 Pulse: 105 Resp: 20 Weight: 101.2 kg (223 lb) Height: 1.575 m (5' 2") Body mass index is 40.79 kg/m. Exam: General: Patient is alert, pleasant, [...] or pre-erosio n Review of studies: ECG: Sinus tachycardia at 102 bpm, incomplete right bundle branch block, inferior infarct, anterolateral infarct, no previous in the office for comparison Device Interrogation: Her dual-chamber [employer] ICD was interrogated. Decreased s ensing is again noted on the right atrial lead with no capture at maximum output. Stable ri ght ventricular ICD lead parameters were noted. Brief atrial runs were noted since last int errogation but no significant mode switch episodes. No true ventricular dysrhythmias have b een recorded. She paces less than 1% of the time in the ventricle. Her device is currently programmed in a VDD pacing mode. Impression/Plan: Yuliana was seen today for follow-up. Diagnoses and all orders for this visit: Ischemic cardiomyopathy - ECG 12 lead Inducible ventricular tachycardia (HCC) Status post internal cardiac defibrillator procedure 1) Ischemic cardiomyopathy - She has a history of ischemic cardiomyopathy with an ejection fraction of 40-45% on echocardiogram performed in 2018. She is status post stents to the sa phenous graft to the obtuse marginal branch around that time. She continues to follow with cardiology. 2) Ventricular tachycardia - She has a history of syncope in the past and underwent electro physiology study in 1999 which demonstrated inducible ventricular dysrhythmias by report. S he underwent implantation of a dual-chamber ICD at that time. She denies any subsequent mitra cks through her defibrillators. 3) s/p DC ICD - She had a dual-chamber ICD implanted in July 2003 following inducible vent ricular tachycardia with a history of coronary artery disease and syncope. A generator kuo ge was performed in March 2010. On the operative report from that time it was noted that there was no capture from the right atrial lead and the device was programmed to a VDD mode . Evaluation the office has confirmed no capture from the right atrial lead. Her chest x-r ay performed previously noted that the lead was pulled back into the superior vena cava with the lead tip likely at the junction of the superior vena cava and right atrium as some atri al sensing is still noted. The lead likely pulled back following implantation in 2003. As she does not currently require atrial pacing with no significant ventricular pacing in a sin gle chamber mode we will continue with observation. Should dual-chamber pacing be required she would require revision of her system. Her device was interrogated today with stable fun ction noted. We will plan for remote transmission [...] [place] | | | | | | [place] [address] | | | | | | [phone] | | | | | | | [...] | ECG 12 LEAD | Routin | 06/12/2019 | Ischemic | Results for this | | | e | 1:39 PM | cardiomyopathy | procedure are in the | | | | PST | | results section. | + +--------+ + + + documented in this encounter Results ECG 12 lead (06/12/2019 1:39 PM PST) + + + + + + | Component | Value | Ref Range | Performed | Pathologist | | | | | At | Signature | + + + + + + | VENTRICULAR | 102 | BPM | [facility] | | | RATE EKG | | | | | + + + + + + | ATRIAL RATE | 102 | BPM | [facility] | | + + + + + + | P-R | 134 | ms | [facility] | | | INTERVAL | | | | | + + + + + + | QRS | 116 | ms | [facility] | | | DURATION | | | | | + + + + + + | Q-T | 378 | ms | [facility] | | | INTERVAL | | | | | + + + + + + | Q-T | 492 | ms | [facility] | | | INTERVAL | | | | | | (CORRECTED) | | | | | + + + + + + | QRS AXIS | 86 | degrees | [facility] | | + + + + + + | T AXIS | -12 | degrees | [facility] | | [...] MD | | | | | | ([id number]) on 06/14/2019 | | | | | | 1:21:52 PM | | | | + + [...]
--- OUTSIDE RECORDS SUMMARY | ~2020-01-22 | XMS | Encounter Summary ---
Demographics + + + | Address | [address] | | | [place] [address] | + + + | Home Phone | | + + + | Preferred Language | Unknown | + + + | Marital Status | | + + + | Quaker Affiliation | 1041 | + + + | Race | or | + + + | Ethnic Group | Not or | + + + Author + + + | Author | [facility] | | | and [place] | + + + | Organization | [facility] | | | [...] Team Providers + +------+ + | Care Precision Honing Machine Operator Name | Role | Phone [...] | SR | | | | | [address] | | | | | | [place], [place] | | | | | | [address] | | | | | | [phone] | | | +--------+ + + + [...] [place] | | | | | | [place] [address] | | | | | | [phone] | | | | | | | | +--------+ + + + + | 07/22/ | Procedure | Cardiology | | | | 2020 | visit | | | | +--------+ + + + + documented as of this encounter Visit Diagnoses Not on filedocumented in this encounter
--- OUTSIDE RECORDS SUMMARY | ~2020-01-22 | XMS | Encounter Summary ---
Demographics + + + | Address | [address] | | | [place] [address] | + + + | Home Phone [...] Team Providers + +------+ + | Care Aerospace Engineer Officer Armament Name | Role | Phone | + [...] MD [address] | | | | | [place], [place] | [address] | | | | | [address] | [place] [address] | | | | | [phone] | [phone] | | | | | | | [...] [place] | | | | | | [place] [address] | | | | | | [phone] | | | | | | | [...]
--- OUTSIDE RECORDS SUMMARY | ~2020-01-22 | XMS | Encounter Summary ---
Demographics + + + | Address | [address] | | | [place] [address] | + + + | Home Phone | | + + + | Preferred Language | Unknown | + + + | Marital Status | | + + + | Synagogue Affiliation | 1041 | + + + [...] Team Providers + +------+ + | Care Fulfillment Representative Name | Role | Phone | + +------+ + | Aleksander Humphries MD | PCP | | + +------+ + Encounter Details +--------+ + + + + | Date | Type | Department | Care Team | Description | +--------+ + + + + | 01/14/ | Documentati | [facility] | Barak Caba | | | 2020 | on | [facility] [place] | MD [address] | | | | | [address] | [address] | | | | | [place], [place] | [place] [address] | | | | | [address] | [phone] | | | | | [phone] | | | +--------+ + + + [...] | | | | | [place] [address] | | | | | | [phone] | | | | | | | [...] [facility] | | + + + documented in this encounter Visit Diagnoses + + | Diagnosis | + + | Ischemic cardiomyopathy Other specified forms of chronic ischemic heart disease | + + documented in this encounter"
--- OUTSIDE RECORDS SUMMARY | ~2020-01-22 | XMS | Encounter Summary ---
Demographics + + + | Address | [address] | | | [place] [address] | + + + | Home Phone | | + + + | Preferred Language | Unknown | + + + | Marital Status | | + + + | Scientologist Affiliation | 1041 | + + + | Race | or | + + + | Ethnic Group | Not or | + + + Author + + + | Author | [facility] | | | and [place] | + + + | Organization | [facility] | | [...] Team Providers + +------+ + | Care Operations Planner Name | Role | Phone | + +------+ + | Jasmin Stephens MD | PCP | | + +------+ + Encounter Details +--------+ + + + + | Date | Type | Department | Care Team | Description | +--------+ + + + + | 04/16/ | Hospital | [facility] | Conversion | Diagnosis unknown | | 2016 | Encounter | CONVERSION DEP [address] | Transaction, | | | | | [address]IONNE [address]ERNA[address] | Provider Unknown | | | | | [place] | [phone] | | | | | [address] | | | | | | [phone] | | | +--------+ + + + [...] [place] | | | | | | [facility] [place] [address] | | | | | | [phone] | | | | | | | [...]
--- OUTSIDE RECORDS SUMMARY | ~2020-01-22 | XMS | Encounter Summary ---
Demographics + + + | Address | [address] | | | [place] [address] | + + + | Home Phone | | + + + | Preferred Language | Unknown | + + + | Marital Status | | + + + | Mormonism Affiliation | 1041 | + + + | Race | or | + + + | Ethnic Group | Not or | + + + Author + + + | Author | [facility] | | | and [place] | + + + | Organization | [facility] | | [...] Team Providers + +------+ + | Care Station Usher Name | Role | Phone | + +------+ + PCP | Unavailable | + +------+ + Encounter Details +--------+ + + + + | Date | Type | Department | Care Team | Description | +--------+ + + + + | 01/27/ | Hospital | [facility] | | | | 2006 | Encounter | [facility] | | | | | | [address] | | | | | | [place] | | | | | | [address] | | | | | | [phone] | | | +--------+ + + + [...] [place] | | | | | | [facility] [place] [address] | | | | | | [phone] | | | | | | | | +--------+ + + + + | 07/22/ | Procedure | Cardiology | | | | 2020 | visit | | | | +--------+ + + + + documented as of this encounter Visit Diagnoses Not on filedocumented in this encounter"
--- OUTSIDE RECORDS SUMMARY | ~2020-01-22 | XMS | Encounter Summary ---
Demographics + + + | Address | [address] | | | [place] [address] | + + + | Home Phone [...] Team Providers + +------+ + | Care Asphalt Plant Laborer Name | Role | Phone | + +------+ + | Roxana Barajas PA-C | PCP | | + +------+ + Encounter Details +--------+ + + + + | Date | Type | Department | Care Team | Description | +--------+ + + + + | 05/30/ | Orders Only | [facility] | Rani Jo Annnisreen | | | 2020 | | PULMONOLOGY [address] | Eddie Bowden MD [address] | | | | | [address] | [address] | | | | | [place], [place] | [place] [address] | | | | | [address] | [phone] | | | | | [phone] | | | +--------+ + + + [...] | | | | | [place] [address] | | | | | | [phone] | | | | | | | | +--------+ + + + + | 07/22/ | Procedure | Cardiology | | | | 2020 | visit | | | | +--------+ + + + + documented as of this encounter Visit Diagnoses Not on filedocumented in this encounter"
--- OUTSIDE RECORDS SUMMARY | ~2020-01-22 | XMS | Encounter Summary ---
Demographics + + + | Address | [address] | | | [place] [address] | + + + | Home Phone [...] Team Providers + +------+ + | Care Solar Installer Pv Name | Role | Phone | + [...] | | | [address] [place] | [place] [address] | | | | | [place] [address] | | | | | | [phone] | | | +--------+ + + + [...] [place] | | | | | | [place] [address] | | | | | | [phone] | | | | | | | [...]
--- OUTSIDE RECORDS SUMMARY | ~2020-01-22 | XMS | Encounter Summary ---
Demographics + + + | Address | [address] | | | [place] [address] | + + + | Home Phone | | + + + | Preferred Language | Unknown | + + + | Marital Status | | + + + | Gnosticism Affiliation | 1041 | + + + | Race | or | + + + | Ethnic Group | Not or | + + + Author + + + | Author | [facility] | | | and [place] | + + + | Organization | [facility] | | [...] Team Providers + +------+ + | Care Strand Forming Machine Operator Name | Role | Phone | + +------+ + | Roxana Barajas PA-C | PCP | | + +------+ + Reason for Visit + + + | Reason | Comments | + + + | Follow-up | | + + + | COPD | | + + + Encounter Details +--------+---------+ + + + | Date | Type | Department | Care Team | Description | +--------+---------+ + + + | 06/29/ | Office | [facility] | Zheng Saravia | Chronic bronchitis, | | 2019 | Visit | PULMONOLOGY 1100 | Eddie Bowden MD [address] | unspecified chronic | | | | [address] | [address] | bronchitis type | | | | [place], [place] | [place] [address] | ([facility]) (Primary Dx); | | | | [address] | [phone] | H/O tobacco use, | | | | [phone] | | presenting hazards | | | | | | to health | +--------+---------+ + + + [...] + + + | Blood Pressure | 135/73 | 06/29/2019 1:22 PM | | | | | PST | | + + + + + | Pulse | 103 | 06/29/2019 1:22 PM | | | | | PST | | + + + + + | Temperature | 37.1 C (98.8 F) | 06/29/2019 1:22 PM | | | | | PST | | + + + + + | Respiratory Rate | - | - | | + + + + + | Oxygen Saturation | 93% | 06/29/2019 1:22 PM | | | | | PST | | + + + + + | Inhaled Oxygen | - | - | | | Concentration | | | | + + + + + | Weight | 99.8 kg (220 lb) | 06/29/2019 1:22 PM | | | | | PST | | + + + + + | Height | 157.5 cm (5' 2") | 06/29/2019 1:22 PM | | | | | PST | | + + + + + | Body Mass Index | 40.24 | 06/29/2019 1:22 PM | | | | | PST | | + + + + + documented in this encounter Progress Notes Zheng Saravia MD - 06/29/2019 1:30 PM PSTFormatting of this note might be dif ferent from the original. [facility] [address] [place] [address] HISTORY: Chief Complaint: I have been asked to assist in the pulmonary evaluation of Yuliana Dumas rt, 78 y.o. female, for chronic bronchitis. History of Present Illness: Initial history: 12/16/18 Yuliana Galindo is an 78 y/o female referred to me for COPD. She is a current smoker up to 1 ppd for the past 50 years. She recalls being told about 20 years ago that she had COPD and asthma. She was experiencing cough and wheezing that time but improved when she change d her carpet at home. She has a history of CAD s/p CABG in 1994 and stents in 2018. She also has CHF with an EF of 40-45%. She also has DM and HTN. She experiences dyspnea on e xertion when walking several meters. Sometimes she also gets dyspneic when bathing. She denies orthopnea or PND. She also has a daily productive cough in the mornings with whitis h phlegm. When laying down sometimes she hears herself wheeze. She currently has a dog. 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 Interval history: Yuliana is here for follow up. She has not had any exacerbations in the interim. She do es have a chronic cough as before especially in the AM. She denies audible wheezing. She h as dyspnea on exertion which is unchanged. She continues to smoke 1/2ppd Review of Systems Constitutional: Negative. Negative for chills, fever and malaise/fatigue. HENT: Negative. Negative for congestion, sinus pain and sore throat. Eyes: Negative. Respiratory: Positive for cough, sputum production and shortness of breath (w exertion). Ne gative for hemoptysis, wheezing and stridor. Cardiovascular: Positive for leg swelling. Gastrointestinal: Negative. Negative for [...] h/o tobacco abuse Coronary artery disease involving [place] coronary artery s/p CABG x3 (SVG to [...] [place] (myocardial infarction) 1993 Osteoarthritis Pulmonary embolism (HCC) [...] "6 years" Tobacco abuse Ventricular tachycardia, paroxysmal ([facility]) 2003 with Syncope, + EPS [...] PLACEMENT intial AICD 2003, generator change 03/27/11, [employer] Telogen E110, s# [id number]; R V Lead - Guidant 0184, s# [id number] (08/15/03); RA Lead - Guidant Fineline II EZ Sterox 4469, s # [id number] (08/15/03) COLONOSCOPY CORONARY ARTERY BYPASS GRAFT 1994 [...] EF 40-45%, mild MR, mild TR, tr LA, RVSP 58-63 Current Medications: Outpatient Medications acetaminophen (TYLENOL) 325 mg tablet Take or use as needed. albuterol (VENTOLIN HFA) 90 mcg/puff inhaler 2 puffs four times daily as needed. allopurinol (ZYLOPRIM) 100 mg tablet Take 100 mg by mouth daily. aspirin 81 MG tablet (Taking) Take 81 mg by mouth daily. atorvaSTATin (LIPITOR) 40 mg tablet (Taking) Take 40 mg by mouth. Calcium Carb-Cholecalciferol (CALCIUM-VITAMIN D) 600-400 MG-UNIT TABS (Taking) Take 1 tabl et by mouth 2 (two) times daily. cholecalciferol (CHOLECALCIFEROL) 1000 units TABS (Taking) Take 1,000 Units by mouth daily . clopidogrel (PLAVIX) 75 mg tablet (Taking) Take 75 mg by mouth. cyanocobalamin (VITAMIN B-12) 1000 MCG tablet (Taking) Take 1,000 mcg by mouth daily. escitalopram (LEXAPRO) 20 mg tablet (Taking) Take 20 mg by mouth daily. furosemide (LASIX) 20 mg tablet (Taking) Take 20 mg by mouth Daily. gabapentin (NEURONTIN) 300 mg capsule (Taking) Take 300 mg by mouth 2 times daily. ipratropium (ATROVENT HFA) 17 mcg/puff inhaler (Taking) Take or use as needed. isosorbide mononitrate (IMDUR) 30 mg ER tablet (Taking) Take 1 tablet by mouth daily. KCl in Dextrose-NaCl 10-5-0.2 MEQ/L-%-% SOLN Take 1 tablet by mouth daily lisinopril (PRINIVIL, ZESTRIL) 10 mg tablet (Taking) Take 10 mg by mouth Daily. loratadine (CLARITIN) 10 mg tablet Take 10 mg by mouth Daily as needed. magnesium oxide (MAG-OX) 400 mg tablet (Taking) Take 400 mg by mouth Daily. metFORMIN (GLUCOPHAGE) 500 mg tablet (Taking) Take 500 mg by mouth 2 times daily (with chio akfast & dinner). metoprolol succinate (TOPROL-XL) 25 mg 24 hr tablet (Taking) Take 25 mg by mouth Daily. nitroglycerin [...] 4.5 mg three days a week. No Known Allergies Social History Socioeconomic History Marital status: Spouse name: Not on file Number of children: Not on file Years of education: Not on file Highest education level: Not on file Occupational History Not on file Social Needs Financial resource strain: Not on file Food insecurity: Worry: Not on file Inability: Not on file Transportation needs: Medical: Not on file Non-medical: Not on file Tobacco Use Smoking status: Heavy Tobacco Smoker Packs/day: 0.50 Smokeless tobacco: Never Used Tobacco comment: cut down to 0.5 ppd several weeks ago Substance and Sexual Activity Alcohol use: Not Currently Drug use: Not on file Comment: Drug use: No Sexual activity: Not on file Lifestyle Physical activity: Days per week: Not on file Minutes per session: Not on file Stress: Not on file Relationships Social connections: Talks on phone: Not on file Gets together: Not on file Attends jewish service: Not on file Active member of club or organization: Not on file Attends meetings of clubs or organizations: Not on file Relationship status: Not on file Intimate partner violence: Fear of current or ex partner: Not on file Emotionally abused: Not on file Physically abused: Not on file Forced sexual activity: Not on file Other Topics Concern Not on file Social History Narrative Not on file Family History Problem Relation Age of Onset Coronary artery disease Mother 60 [place] Alzheimer's disease Brother Other (see comment) Brother Diabetes Mellitus II Thyroid disease Daughter PHYSICAL EXAMINATION: Vital Signs: Vitals: 06/29/19 1322 BP: 135/73 Pulse: 103 Temp: 37.1 C (98.8 F) TempSrc: Oral SpO2: 93% Weight: 99.8 kg (220 lb) Height: 1.575 m (5' 2") Weight: Wt Readings from Last 2 Encounters: 06/29/19 99.8 kg (220 lb) 06/12/19 101.2 kg (223 lb) .lastwt BMI: Body mass index is 40.24 kg/m. Physical Exam Constitutional: She is well-developed, well-nourished, [...] She exhibits no distension. There is no abdominal tenderness. Musculoskeletal: General: Edema (trace edema) present. Lymphadenopathy: She has no cervical adenopathy. Neurological: [...] PLAN: A> 78 y.o. female smoker with chronic bronchitiswith h/o CAD s/p CABG and stents, DM, HTN P> 1. Chronic bronchitis - the patient has not had any exacerbations in the interim - she continues to have a chronic productive cough and dyspnea on exertion - her last PFT did not show any obstructive impairment but did show air trapping reduced DL CO - reviewed meds with her, she has not been using Dulera. Recommended she restart Dulera at 2 puffs BID. Rinse mouth after each use - use Ventolin as needed for dyspnea or wheezing. - performed 3 step test. Lowest ambulatory O2 sat on room air was 93%. She does not requi re O2 supplementation. Will send order to [facility] to discontinue O2. 2. Tobacco use - continues to smoke 1/2 ppd. Counseled on smoking cessation. Tried nicotine patches but was unsuccessful. The patient will follow up with me in 4 months Zheng Saravia MD Pulmonary and Critical Care Medicine [facility] Pulmonology onroy, Eric e R, Stitcher Around - 06/29/2019 1:30 PM PST3 step testing Oximetry Exercise (code) 5676 1 1. At rest on room air: Time:1:49 PM Heart rate:104 Oxygen saturations:95% 2. At exercise on room air: Time:1:50 PM Heart rate:126 Oxygen saturations:93% 3. At exercise with oxygen: Time: Heart rate: Oxygen Saturations: Liters per minute: Danilo harrell in this encounter Plan of Treatment +--------+ [...] | | | | | [place] [address] | | | | | | [phone] | | | | | | | | +--------+ + + + + | 07/22/ | Procedure | Cardiology | | | | 2020 | visit | | | | +--------+ + + + + documented as of this encounter Visit Diagnoses + + | Diagnosis | + + | Chronic bronchitis, unspecified chronic bronchitis type (HCC) - Primary | + + | H/O tobacco use, presenting hazards to health Personal history of tobacco use, | | presenting hazards to health | + + documented in this encounter
--- OUTSIDE RECORDS SUMMARY | ~2020-01-22 | XMS | Encounter Summary ---
Demographics + + + | Address | [address] | | | [place] [address] | + + + | Home Phone | | + + + | Preferred Language | Unknown | + + + | Marital Status | | + + + | Religion Affiliation | 1041 | + + + | Race | or | + + + | Ethnic Group | Not or | + + + Author + + + | Author | [facility] | | | and [place] | + + + | Organization | [facility] | | | and [...] Team Providers + +------+ + | Care Infrastructure Engineer Name | Role | Phone | + +------+ + | Aleksander Humphries MD | PCP | | + +------+ + Encounter Details +--------+ + + + + | Date | Type | Department | Care Team | Description | +--------+ + + + + | 06/30/ | Documentati | [facility] | Zheng Saravia | | | 2020 | on | PULMONOLOGY [address] | Eddie Bowden MD [address] | | | | | [address] | [address] | | | | | [place], [place] | [place] [address] | | | | | [address] | [phone] | | | | | [phone] | | | +--------+ + + + [...] | | | | | [place] [address] | | | | | | [phone] | | | | | | | | +--------+ + + + + | 07/22/ | Procedure | Cardiology | | | | 2020 | visit | | | | +--------+ + + + + documented as of this encounter Visit Diagnoses Not on filedocumented in this encounter"
--- OUTSIDE RECORDS SUMMARY | ~2020-01-22 | XMS | Encounter Summary ---
Demographics + + + | Address | [address] | | | [place] [address] | + + + | Home Phone | | + + + | Preferred Language | Unknown | + + + | Marital Status | | + + + | Orthodox Affiliation | 1041 | + + + | Race | or | + + + | Ethnic Group | Not or | + + + Author + + + | Author | [facility] | | | and [place] | + + + | Organization | [facility] | [...] Team Providers + +------+ + | Care Cost Reduction Engineer Name | Role | Phone | [...] + + | 09/10/ | Procedure | [facility] | | Cardiac | | 2020 | visit | CARDIOLOGY [place] | | defibrillator in | | | | [address] | | situ | | | | [place], [place] | | | | | | [address] | | | | | | [phone] | | | +--------+ + + + [...] Hewitt Primary electrophysiology provider: Erin Caba Device plaster form maker: [email or web address] Device type: Dual chamber Battery Longevity: 2.5 [...] as outlined. No EGMs for review in [facility].documented in this encounter Plan of Treatment +--------+ + + + + | Date | Type | Specialty | Care Team | Description | +--------+ + + + + | 03/18/ | Procedure | Cardiology | | | 2019 | visit | | | | +--------+ + + + + | 07/22/ | Office | Cardiology | Barak Cbaa | | | 2020 | Visit | | MD [address] | | | | | | [address] | | | | | | [place] [address] | | | | | | [phone] | | | | | | | [...] Barajas PA-C : 1940MRN: | | | [id number] Primary cardiology provider: Tres Hewitt Primary | | | electrophysiology provider: Erin Caba Device plaster form maker: | | | [email or web address] Device type: Dual chamber Battery Longevity: 2.5 [...] above. Testing reviewed | | | by: Girish Neal RN | | |Please see the [...] + + | Performing | Address | [place] | Phone Number | | Organization | | | | + +---------+ + + | [facility] | | | | + +---------+ + + documented in this encounter Visit Diagnoses + + | Diagnosis | + + | Cardiac defibrillator in situ Automatic implantable cardiac defibrillator in situ | + + documented in this encounter"
--- OUTSIDE RECORDS SUMMARY | ~2020-01-22 | XMS | Encounter Summary ---
Demographics + + + | Address | [address] | | | [place] [address] | + + + | Home Phone | | + + + | Preferred Language | Unknown | + + + | Marital Status | | + + + | Pentecostalism Affiliation | 1041 | + + + [...] Team Providers + +------+ + | Care Lumber Grader Name | Role | Phone | + [...] | | | | pain | PA-C [address] | [address] | | | | | | [address] | | | | | | [place] | [place] | | | | | | [place], | [address] Phone: | | | | | | [place] [address] | [phone] | | | | | | Phone: | Fax: | | | | | | [phone] | [phone] | | | | | | Fax: | | | | | | | [phone] | | +--------+--------+ + + + + Encounter Details +--------+---------+ + + + | Date | Type | Department | Care Team | Description | +--------+---------+ + + + | 06/01/ | Office | [facility] | Manuel Wesley | Arthritis of left | | 2020 | Visit | ORTHOPEDIC SURGERY | [address] | hip (Primary Dx); | | | | [address] | [place] [facility] | Tobacco abuse; Left | | | | [facility] | [place] [address] | hip pain; Morbid | | | | [address] | [phone] | obesity with BMI of | | | | [phone] | | 40.0-44.9, adult | | | | | | ([facility]) | +--------+---------+ + + + Social History [...] be differe nt from the original. ORTHOPEDICS [address] [place] [id number] FAX: [phone] Name: Yuliana Galindo : 1940 Age: 78 y.o. Todays Date: 06/02/2019 Primary Care Provider: Roxana Barajas PA-C Chief Complaint Patient presents with New Patient left hip pain onset 04/2019 History of Present Illness: Yuliana Galindo is a new patient that presents with what she professes acute left hip pain started in April 2019 on [facility]. Prescription as she had acute left anterior avinash in pain started abruptly. Denies any site incident or trauma. Notes the pain was so severe she actually went to [facility] in [place] for evaluation. She describ es that they [...] about 4 to 5 years ago in [place]. Her current level pain is rated at an 8 at the left hip Past Medical History: Diagnosis Date Anxiety With panic attacks Asthma CHF (congestive heart failure) ([facility]) chronic systolic heart failure, EF was 27% in the past, improved to 50-55% on echo 02/18/15 Community acquired pneumonia 2011 COPD (chronic obstructive pulmonary disease) ([facility]) h/o chronic bronchitis, long h/o tobacco abuse Coronary artery disease involving [place] coronary artery s/p CABG x3 (SVG to LAD, SVG to RCA, SVG to OM3) 1994, s/p KERA to SVG to OM3 01/01 Diabetes mellitus type 2 in obese ([facility]) diet controlled History of syncope 2003 secondary to [place] 2003, one recurrent episode remotely since her AICD was implanted. Hyperlipidemia Hypertension Ischemic dilated cardiomyopathy ([facility]) EF was 27% on echo 08/01/03, improved to 50-55% on echo 02/18/15 Old [place] (myocardial infarction) 1993 Osteoarthritis Pulmonary embolism ([facility]) Pulmonary hypertension ([facility]) RVSP 58-63 on echo 01/01 S/P CABG x 3 1994 SVG>LAD, SVG>OM, SVG>RCA (she thought she had 4 grafts, which has been on her records for years, but only 3 vein grafts present on cath 12/27/17) Secondary pulmonary arterial hypertension ([facility]) mild, RVSP 40 mm Hg (echo 02/18/15) [...] PLACEMENT intial AICD 2003, generator change 03/27/11, [employer] Telogen E110, s# [id number]; R V Lead - Guidant 0184, s# [id number] (08/15/03); RA Lead - Guidant Fineline II EZ Sterox 4469, s # [id number] (08/15/03) COLONOSCOPY CORONARY ARTERY BYPASS GRAFT 1994 [...] EF 40-45%, mild MR, mild TR, tr MA, RVSP 58-63 No Known Allergies Current Outpatient [...] of Onset Coronary artery disease Mother 60 [place] Alzheimer's disease Brother Other (see comment) Brother [...] chart. Reviewed plain film x-rays obtained in [place] which reveals moderate to severe arthritic changes of the left hip with near qvop-pa-seoh apposition Physical Exam: There were no vitals [...] 20. Both movements cause her prominent and sudha re discomfort at the left anterior groin. [...] appear as mild to moderate with near dony-hi-mces apposition. Examination reveals as therapy the cause of her pain. N o further imaging study is warranted at this time. She has completed a course of physical t herapy that was prescribed by her provider in [place]. This provided her no significant p ain [...] follow-up with her primary care provider in [facility] ds to nutritional management and a [...] history and physical was dictated using the bluebottlebiz voice recognition system. There may be minor [...] [address] | | | | | | [place] [address] | | | | | | [phone] | | | | | | | [...]
--- OUTSIDE RECORDS SUMMARY | ~2020-01-22 | XMS | Encounter Summary ---
Demographics + + + | Address | [address] | | | [place] [address] | + + + | Home Phone [...] + + + | Author | [facility] | | | and [place] | + + + | Organization | [facility] | | | [...] Providers + +------+ + | Care Electrical Tech/Project Manager Name | Role | Phone | [...] + + | 06/29/ | Office | [facility] | Zheng Saravia | Chronic bronchitis, | | 2019 | Visit | PULMONOLOGY [address] | Eddie Bowden MD [address] | unspecified chronic | | | | [address] | [address] | bronchitis type | | | | [place], [place] | [place] [address] | ([facility]) (Primary Dx); | | | | [address] | [phone] | H/O tobacco use, | | | | [phone] | | presenting hazards | | | [...] might be dif ferent from the original. [facility] PULMONOLOGY [address] [place] [address] HISTORY: Chief Complaint: I have been asked [...] her hus band became ill. Interval history: uYliana is here for follow up. She has [...] panic attacks Asthma CHF (congestive heart failure) ([facility]) chronic systolic heart failure, EF was 27% in the past, improved to 50-55% on echo 02/18/15 Community acquired pneumonia 2011 COPD (chronic obstructive pulmonary disease) ([facility]) h/o chronic bronchitis, long h/o tobacco abuse Coronary artery disease involving [place] coronary artery s/p CABG x3 (SVG to LAD, SVG to RCA, SVG to OM3) 1994, s/p KERA to SVG to OM3 01/01 Diabetes mellitus type 2 in obese ([facility]) diet controlled History of syncope 2003 secondary to VT 2003, one recurrent episode remotely since her AICD was implanted. Hyperlipidemia Hypertension Ischemic dilated cardiomyopathy (HCC) EF was 27% on echo 08/01/03, improved to 50-55% on echo 02/18/15 Old [place] (myocardial infarction) 1993 Osteoarthritis Pulmonary embolism (HCC) [...] "6 years" Tobacco abuse Ventricular tachycardia, paroxysmal ([facility]) 2003 with Syncope, + EPS [...] PLACEMENT intial AICD 2003, generator change 03/27/11, [employer] Telogen E110, s# [id number]; R V Lead - Guidant 0184, s# [id number] (08/15/03); RA Lead - Guidant Fineline II EZ Sterox 4469, s # [id number] (08/15/03) COLONOSCOPY CORONARY ARTERY BYPASS GRAFT 1994 [...] EF 40-45%, mild MR, mild TR, tr ND, RVSP 58-63 Current Medications: Outpatient Medications acetaminophen [...] file Gets together: Not on file Attends presybeterian service: Not on file Active member of [...] of Onset Coronary artery disease Mother 60 [place] Alzheimer's disease Brother Other (see comment) Brother [...] Saravia MD Pulmonary and Critical Care Medicine [facility] Pulmonology onroy, Eric e R, Commissions Analyst - 06/29/2019 1:30 PM PST3 step testing Oximetry Exercise (code) 7876 1 1. At rest on room air: [...] | | | | | [place] [address] | | | | | | [phone] | | | | | | | [...]
--- OUTSIDE RECORDS SUMMARY | ~2020-01-22 | XMS | Encounter Summary ---
Demographics + + + | Address | [address] | | | [place] [address] | + + + | Home Phone | | + + + | Preferred Language | Unknown | + + + | Marital Status | | + + + | Advent Affiliation | 1041 | + + + [...] Providers + +------+ + | Care Claims Auditor Name | Role | Phone | + [...] + + | 05/29/ | Telephone | [facility] | Zheng Saravia | Medication Question | | 2019 | | PULMONOLOGY [address] | Eddie Bowden MD [address] | | | | | [address] | [address] | | | | | [place] | [place] [address] | | | | | [address] | [phone] | | | | | [phone] | | | +--------+ + + + [...] Miscellaneous Notes Telephone Encounter - Cullen Hidalgo, Inking Machine Tender - 05/30/2019 2:34 PM PSTSpoke with daughter and let her know Dr. Saravia ordered Advair. She will pick this up as soon as it i s ready. Telephone Encounter - Zheng Saravia MD - 05/30/2019 11:50 AM PSTYes we can kuo ge from Dulera to Advair as long as her insurance covers it. I can send a prescription to [facility] pharmacy. TTelephone Encounter - Kamila Castañeda - [...] transfer the call to a amanda carvajal senior administrative associate was caller made aware that if at [...] | | | | | [place] [address] | | | | | | [phone] | | | | | | | | +--------+ + + + + | 07/22/ | Procedure | Cardiology | | | | 2020 | visit | | | | +--------+ + + + + documented as of this encounter Visit Diagnoses Not on filedocumented in this encounter"
--- OUTSIDE RECORDS SUMMARY | ~2020-01-22 | XMS | Encounter Summary ---
Demographics + + + | Address | [address] | | | [place] [address] | + + + | Home Phone | | + + + | Preferred Language | Unknown | + + + | Marital Status | | + + + | Taoism Affiliation | 1041 | + + + | Race | or | + + + | Ethnic Group | Not or | + + + Author + + + | Author | [facility] | | | and [place] | + + + | Organization | [facility] | | [...] Providers + +------+ + | Care Wardrobe Mistress Name | Role | Phone | + +------+ + | Roxana Barajas PA-C | PCP | | + +------+ + Encounter Details +--------+ + + + + | Date | Type | Department | Care Team | Description | +--------+ + + + + | 12/30/ | Orders Only | [facility] | Markos Dawn | Essential (primary) | | 2019 | | CARDIOLOGY [place] | [address] | hypertension; Mixed | | | | [address] | [address] [place] | hyperlipidemia | | | | [address] | [place] [address] | | | | | [place] | [phone] | | | | | [address] | | | | | | [phone] | | | +--------+ + + + [...] [place] | | | | | | [place] [address] | | | | | | [phone] | | | | | | | [...]
--- OUTSIDE RECORDS SUMMARY | ~2020-01-22 | XMS | Encounter Summary ---
Demographics + + + | Address | [address] | | | [place] [address] | + + + | Home Phone [...] Team Providers + +------+ + | [facility] [place] [facility] Name | Role | Phone | + +------+ + | Pcp, Prov Inactive | PCP | | + +------+ + Encounter Details +--------+ + + + + | Date | Type | Department | Care Team | Description | +--------+ + + + + | 01/09/ | Hospital | [facility] | Conversion | Pain | | 2018 | Encounter | CONVERSION [address] | Transaction, | | | | | [address] | Provider Unknown | | | | | [place], [place] | | | | | | [address] | (Fax) | | | | | [phone] | | | +--------+ + + + [...] | | | | | [place] [address] | | | | | | [phone] | | | | | | | [...]
--- OUTSIDE RECORDS SUMMARY | ~2020-01-22 | XMS | Encounter Summary ---
Demographics + + + | Address | [address] | | | [place] [address] | + + + | Home Phone | | + + + | Preferred Language | Unknown | + + + | Marital Status | | + + + | Restorationist Affiliation | 1041 | + + + | Race | or | + + + | Ethnic Group | Not or | + + + Author + + + | Author | [facility] | | | and [place] | + + + | Organization | [facility] | | | [...] Team Providers + +------+ + | Care Security Delivery Specialist Name | Role | Phone | + +------+ + | Aleksander Humphries MD | PCP | | + +------+ + Encounter Details +--------+ + + + + | Date | Type | Department | Care Team | Description | +--------+ + + + + | 01/14/ | Documentati | [facility] | Barak Caba | | | 2020 | on | CARDIOLOGY [place] | [address] | | | | | [address] | [address] | | | | | [place], [place] | [place] [address] | | | | | [address] | [phone] | | | | | [phone] | | | +--------+ + + + [...] | | | | | [place] [address] | | | | | | [phone] | | | | | | | [...]
--- OUTSIDE RECORDS SUMMARY | ~2020-01-22 | XMS | Encounter Summary ---
Demographics + + + | Address | [address] | | | [place] [address] | + + + | Home Phone [...] Providers + +------+ + | Care Legal Job Titles Name | Role | Phone | + [...] / | REGULAR | [address] | [place], [place] | | | | Cardiology | | [place], [place] | [address] Phone: | | | | | | [address] | [phone] | | | | | | Phone: | Fax: | | | | | | [phone] | [phone] | | | | | | Fax: | | | | | | | [phone] | | +--------+--------+ + + + + Encounter Details +--------+---------+ + + + | Date | Type | Department | Care Team | Description | +--------+---------+ + + + | 06/12/ | Office | [facility] | Barak Caba | Ischemic | | 2020 | Visit | CARDIOLOGY [place] | [address] | cardiomyopathy | | | | [address] | [address] | (Primary Dx); | | | | [place], [place] | [place] [address] | Inducible | | | | [address] | [phone] | ventricular | | | | [phone] | | tachycardia (HCC); | | | [...] h/o tobacco abuse 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 Decreased s ensing [...] [place] | | | | | | [place] [address] | | | | | | [phone] | | | | | | | [...] MD | | | | | | (5128) on 06/14/2019 | | | | | [...]
--- OUTSIDE RECORDS SUMMARY | ~2020-01-22 | XMS | Encounter Summary ---
Demographics + + + | Address | [address] | | | [place] [address] | + + + | Home Phone | | + + + | Preferred Language | Unknown | + + + | Marital Status | | + + + | Jainism Affiliation | 1041 | + + + | Race | or | + + + | Ethnic Group | Not or | + + + Author + + + | Author | [facility] | | | and [place] | + + + | Organization | [facility] | | | [...] Team Providers + +------+ + | Care Timber Sizer Name | Role | Phone | + +------+ + | Pcp, Prov Inactive | PCP | | + +------+ + Encounter Details +--------+ + + + + | Date | Type | Department | Care Team | Description | +--------+ + + + + | 12/26/ | Hospital | [facility] | [facility] | Pain; S/P drug | | 2018 - | Encounter | [facility] | MD Tim[address] | eluting coronary | | | | CARE FLOOR [address] [place], [place] | stent placement; | | 12/31/ | | [address] | [phone] | NSTEMI (non-ST | | 2017 | | [place], [place] | | elevated myocardial | | | | [address] | | infarction) ([facility]) | | | | [phone] | | | +--------+ + + + [...] 1609 Date of Service: 12/31/17911 Status: Signed Fulling Mill Operator: Francesco Edmonds MD (Physician) Patient: Yuliana [...] was walking. She wa s transferred to [facility] due to possible NSTEMI. She [...] Information: Follow up: Tres Beltran MD [address] [place] [place] [address] Schedule an appointment as soon as possible for a visit in 10 days hospital follow up. NSTEMI Roxana Barajas PA-C [address] [place] [address] Schedule an appointment as soon as possible [...] Service: (none) Author Type: Registered Nurse Filed: 12/31/175 Date of Service: 12/31/171701 Status: Signed Fulling Mill Operator: Pamela Wagner RN (Registered Nurse) Patient and daughter received discharge instructions, and Rx. All questions answered, and a ll belongings sent with patient, belongings check list is complete. All patient VS are stabl e, patient is afebrile and denies SOB, CP or N/V. PIV x 2 removed, home oxygen with patient. Patient wheeled out in wheelchair by [facility] escort to personal vehicle, discharged home wit h daughter. Pamela Wagner RN onver darnell Transaction, Provider Unknown - 12/31/2017 10:14 AM PDT Case Management by Wandy Gong RN at 12/31/17 6030 Author: Wandy Gogn RN Service: (none) Author Type: Registered Nurse Filed: 12/31/17 1054 Date of Service: 12/31/17 1014 Status: Addendum Fulling Mill Operator: Wandy Gong RN (Registered Nurse) Related Notes: Original Note by Wandy Gong RN (Registered Nurse) filed at 12/31/17 101 5 Pt to d/c home today. Pt will return home with caregivers/family. Family to transport Per [facility], they will deliver a portable tank to room today. Per [facility], they will accept pt Wednesday. Faxed AVS Notified Kell with [facility] of d/c plan, no questions Rita onver darnell Transaction, Provider Unknown - 12/31/2017 5:39 AM PDT Nurse Progress Note by Aishwarya Marr RN at 12/31/17 0539 Author: Aishwarya Marr RN Service: (none) Author Type: Registered Nurse Filed: 12/31/17 0541 Date of Service: 12/31/17 05 Status: Signed Fulling Mill Operator: Aishwarya Marr RN (Registered Nurse) Pt [...] 12/30/171807 Date of Service: 12/30/171805 Status: Signed Fulling Mill Operator: Pamela Wagner RN (Registered Nurse) Patient [...] (none) Author Type: Physical Therapist Filed: 12/30/17 4475 Date of Service: 12/30/171728 Status: Signed Fulling Mill Operator: Parmjit Hernandez PT (Physical Therapist) PHYSICAL THERAPY TREATMENT NOTE PT Received On: 12/30/17 Reason for Treatment: Deconditioning Requires PT Follow Up: PT tech Follow up PT Only?: No Assistance Required: 1 person Fishing Rod Marker Needed: No Recommendations: Home Assist, PT PT [...] 1547 Date of Service: 12/30/171543 Status: Signed Fulling Mill Operator: Francesco Edmonds MD (Physician) [facility] Service: Hospitalist Progress Note Pt: Yuliana Humphreys AGE/SEX: 77 y.o. female ROOM: [address] [place] [address] : 1940 PCP: Roxana Barajas ADMIT DATE: [...] (2003), HTN, current smoker, who presented to [facility] in [facility] to midsternal chest pain that started when she went for a walk. The pain radiated to her L shoulder and she became nauseous and diaphoretic. The patient had similar episodes when she had her CABG in 1994. EKG was done at [place] which revealed non-specific ST-T changes (no previous EKG to compare). She had borderline troponin elevation and was transferred to [facility] for cardiology services on heparin [...] ICU. ICU Timeline: 12/27- [facility] [employer] [employer] to ICU for decreased LOC following sedation [...] Principal Problem: NSTEMI (non-ST elevated myocardial infarction) ([facility]) Active Problems: S/P CABG x 4 Ischemic dilated cardiomyopathy ([facility]) Cardiac defibrillator in situ Hypertension Morbid obesity ([facility]) Tobacco use disorder Acute metabolic encephalopathy Acute respiratory failure with hypoxia and hypercapnia ([facility]) Pulmonary edema cardiac cause ([facility]) ASSESSMENT & PLAN NSTEMI - patient [...] and managing patient and counseling/coordination. Dictation software, In Hand Guides, used which may contain error for similar [...] Date of Service: 12/30/17 1210 Status: Addendum Fulling Mill Operator: Wandy Gong RN (Registered Nurse) Related Notes: Original Note by Wandy Gong RN (Registered Nurse) filed at 12/30/17 122 3 Pt needing home O2, she has selected [facility]. Notified [facility], radha gardner will [...] 12/30/171125 Date of Service: 12/30/171125 Status: Signed Fulling Mill Operator: Dasha Yun CRT (Certified Respiratory Therapist) [facility] Department of Respiratory Shelter Oxygen Evaluation (Evaluation is valid for 48 [...] Date of Service: 08/16/18 0432 Status: Signed Fulling Mill Operator: Merlene Vieira RN (Registered Nurse) Chart check complete. onver darnell Transaction, Provider Unknown - 12/29/2017 5:39 PM PDT Nurse Progress Note by Pamela Wagner RN at 12/29/17 173 Author: Pamela Wagner RN Service: (none) Author Type: Registered Nurse Filed: 12/29/171746 Date of Service: 12/29/171738 Status: Addendum Fulling Mill Operator: Pamela Wagner RN (Registered Nurse) Related [...] Date of Service: 12/29/17 1706 Status: Signed Fulling Mill Operator: Tres Beltran MD (Physician) Related Notes: Original Note by Tres Beltran MD (Physician) filed at 12/29/17 1712 [facility] Service: Cardiology Progress Note SUBJECTIVE Currently [...] Mild LV dysfunction, ejection fraction 40-45%. 8. Hnhhfilx-ay-xoodsc pulmonary hypertension without significant valvular disease. 9. [...] 1240 Date of Service: 12/29/177 Status: Signed Fulling Mill Operator: Wandy Gong RN (Registered Nurse) Met with pt and daughter Cierra re d/ c planning. Pt resides in [place], uses [employer] and has a state paid caregiver. Pt states she plans to return home and no needs are expressed at thi s time. [phone] re d/c plan. Family to transport back [facility] Francesco Hardy i, MD - 12/29/2017 12:37 PM PDTFormatting of this note might be different from the o riginal. Progress Notes by Francesco Edmonds MD at 12/29/17 1237 Author: Francesco Edmonds MD Service: Hospitalist Author Type: Physician Filed: 12/29/17 1244 Date of Service: 12/29/177 Status: Signed Fulling Mill Operator: Francesco Edmonds MD (Physician) [facility] Service: Hospitalist Progress Note Pt: Yuliana [...] (2003), HTN, current smoker, who presented to [facility] in [facility] to midsternal chest pain that started when she went for a walk. The pain radiated to her L shoulder and she became nauseous and diaphoretic. The patient had similar episodes when she had her CABG in 1994. EKG was done at [place] which revealed non-specific ST-T changes (no previous EKG to compare). She had borderline troponin elevation and was transferred to [facility] for cardiology services on heparin [...] ICU. ICU Timeline: 12/27- transferred [facility] [employer] to ICU for decreased LOC following sedation [...] Component Value Units Date/Time MRSA by PCR [[id number]] Collected: 12/27/17 1133 Specimen: Nasopharyngeal from Nares(Nose) [...] Principal Problem: NSTEMI (non-ST elevated myocardial infarction) ([facility]) Active Problems: S/P CABG x 4 Ischemic dilated cardiomyopathy (HCC) Cardiac defibrillator in situ Hypertension Morbid obesity (HCC) Tobacco use disorder Acute metabolic encephalopathy Acute respiratory failure with hypoxia and hypercapnia (HCC) Pulmonary edema cardiac cause ([facility]) ASSESSMENT & PLAN NSTEMI - patient [...] and managing patient and counseling/coordination. Dictation software, In Hand Guides, used which may contain error for similar [...] 12/29/17650 Date of Service: 12/29/17650 Status: Signed Fulling Mill Operator: Merlene Vieira RN (Registered Nurse) No acute events overnight, VSS, no c/o chest pain. onver darnell Transaction, Provider Unknown - 12/29/2017 3:24 AM PDT Nurse Progress Note by Merlene Vieira RN at 12/29/17323 Author: Merlene Vieira RN Service: (none) Author Type: Registered Nurse Filed: 12/29/175 Date of Service: 12/29/17323 Status: Signed Fulling Mill Operator: Merlene Vieira RN (Registered Nurse) 12hr chart check complete. onver darnell Transaction, Provider Unknown - 12/28/2017 5:48 PM PDT Nurse Progress Note by Johnson Ames RN at 12/28/171747 Author: Johnson Ames RN Service: (none) Author Type: Registered Nurse Filed: 12/28/171750 Date of Service: 12/28/171747 Status: Signed Fulling Mill Operator: Johnson Ames RN (Registered Nurse) PT transfer to [facility] at 1500 in stable condition. [...] Author: ESTER Rice Service: (none) Author Type: Lpn Cma Filed: 12/28/17 9181 Date of Service: 12/28/17 1531 Status: Signed Fulling Mill Operator: ESTER Rcie (Lpn Cma) 12/28/17 1521 Discharge Planning Evaluation Admitting Diagnosis [...] [place] Relationship to Patient Caregiver Phone number [phone] Mental Status Unable to answer questions (Pt was asleep) Power of Director Decision Support No Resources Financial concerns No Transportation issues No (Pt can drive, but not often. However, her caregiver and daughter will pick pt up from the hospital. ) Patient/Family concerns [facility] Anticipated Disposition Facility Type Home Met with Yuliana Humphreys and discussed discharge planning. However, pt was asleep sp assessm ent was done over the phone with pt's daughter, Cierra Higgins ([phone]). Pt is a 77 y .o., female who resides with her daughter (Cierra), Cierra's boyfriend, and Cierra's 23 year old son. Pt resides at: [address] [place] [address], [place], [place] [facility]. Pt does not have to w alk up any steps to get into the house, there is a ramp. Pt's daughter reports good family and friend support. Pt's daughter states that she helps her mom with cooking, cleaning, etc. Patient's PCP is: Duc Person at [facility] Pt's daughter states that she is independent with mobility. However, if pt is walking a dis tance or traveling, she will use a cane. Pt's daughter states that pt does not use home oxygen. Pt has not received previous outpatient services. Pt is not currently on any blood thinners. Patient's insurance: Medicaid, Medicare, and [employer] [facility] insurance Coverage concerns: No Medication coverage/concerns: No Rx Bedside Delivery: Pt [email or web address] resources utilized / needed: Pt receives caregiving hours through [facility] in [place]. Pt's case planner is Melly Harris [phone]. Pt's ca regiver is Martha [place] ([phone]). Pt's daughter states that she gets around 18 hour s a week of caregiving services. Assistance in transportation: Pt can drive a small amount. However, her caregiver helps wit h transportation Identification of any specific education / training: TBD Barriers to Discharge / Alternative housing needed: TBD Anticipated DCP: Home Pt does not have an Advanced Directive or a Power of Director Decision Support. Paperwork should be given to family (pt was transferred from ICU prior to receiving paperwork). ESTER Rice onver darnell Transaction, Provider Unknown - 12/28/2017 2:16 PM PDT Nurse Progress Note by Johnson Ames RN at 12/28/17 1416 Author: Johnson Ames RN Service: (none) Author Type: Registered Nurse Filed: 12/28/17 1416 Date of Service: 12/28/171415 Status: Signed Fulling Mill Operator: Johnson Ames RN (Registered Nurse) Report received from Leticia [employer]. PT transferred to [facility] in stable condition. onver darnell Transaction, Provider Unknown - 12/28/2017 12:23 PM PDT Case Management by ESTER Cota at 12/28/17 1223 Author: ESTER Cota Service: (none) Author Type: Lpn Cma Filed: 12/28/17 9012 Date of Service: 12/28/17 1223 Status: Signed Fulling Mill Operator: ESTER Cota (Lpn Cma) Spoke with Kell from [facility]. Informed that pt has not yet been assessed. She is reque sting that the discharging CM call her to notify of any d/c needs and give an update regardi ng d/c plan. Kell- [phone] onver darnell Transaction, Provider Unknown - 12/28/2017 10:51 AM PDT Case Management by ESTER Rice at 12/28/17 1051 Author: ESTER Rice Service: (none) Author Type: Lpn Cma Filed: 12/28/17 1058 Date of Service: 12/28/17 105 Status: Signed Fulling Mill Operator: ESTER Rice (Lpn Cma) CM attended morning rounds. Pt is in [...] 12/28/17 0406 Author: Sherly Coppola DO Service: Time Lock Expert Author Type: Physician Filed: 12/28/17 0624 Date of Service: 12/28/17 0406 Status: Signed Fulling Mill Operator: Sherly Coppola DO (Physician) [facility] Service: Time Lock Expert Progress Note Yuliana Marte Humphreys 77 y.o. [...] (2003), HTN, current smoker, who presented to [facility] in [place] due to midsternal chest pain that started when she went for a walk. The pain radiated to her L shou lder and she became nauseous and diaphoretic. The patient had similar episodes when she had her CABG in 1994. EKG was done at [place] which revealed non-specific ST-T changes (no pre vious EKG to compare). She had borderline troponin elevation and was transferred to [facility] for cardiology services on heparin [...] ICU. ICU Timeline: 12/27- transferred from [employer] to ICU for decreased LOC following sedation [...] Principal Problem: NSTEMI (non-ST elevated myocardial infarction) ([facility]) Active Problems: S/P CABG x 4 Ischemic dilated cardiomyopathy (HCC) Cardiac defibrillator in situ Hypertension Morbid obesity (HCC) Tobacco use disorder Acute metabolic encephalopathy Acute respiratory failure with hypoxia and hypercapnia (HCC) Pulmonary edema cardiac cause ([facility]) Resolved Problems: * No resolved hospital [...] Lasix post proc edure. Current smoker - activities counselor regarding smoking cessation COPD/asthma: cont scheduled [...] Service: (none) Author Type: Registered Nurse Filed: 12/27/171 Date of Service: 12/27/171738 Status: Signed Fulling Mill Operator: Melyssa Harley RN (Registered Nurse) End of shift chart review completed onver darnell Transaction, Provider Unknown - 12/27/2017 5:00 PM PDT Progress Notes by Melyssa Harley RN at 12/27/17 1700 Author: Melyssa Harley RN Service: (none) Author Type: Registered Nurse Filed: 12/27/17 1815 Date of Service: 12/27/17 170 Status: Signed Fulling Mill Operator: Melyssa Harley RN (Registered Nurse) Pt [...] Date of Service: 12/27/17 1635 Status: Addendum Fulling Mill Operator: Herbert Mayorga RRT (Registered Respiratory Therapist) [...] Case Management by ESTER Cota at 12/27/17 1410 Author: ESTER Cota Service: (none) Author Type: Lpn Cma Filed: 12/27/17 1417 Date of Service: 12/27/17 141 Status: Signed Fulling Mill Operator: ESTER Cota (Lpn Cma) Received message to call Kell with [facility] to discuss d/c planning. Pt was just admitt ed to the ICU. I plan to complete an assessment either today or tomorrow. Called Kell rhodes and left a VM requesting a return call. Kell- [phone] onver darnell Transaction, Provider Unknown - 12/27/2017 11:23 AM PDT Case Management by Wandy Gong RN at 12/27/17 1123 Author: Wandy Gong RN Service: (none) Author Type: Registered Nurse Filed: 12/27/17 1123 Date of Service: 12/27/17 1123 Status: Signed Fulling Mill Operator: Wandy Gong RN (Registered Nurse) 12/27/17 [...] Date of Service: 12/27/17 1115 Status: Signed Fulling Mill Operator: Melyssa Harley RN (Registered Nurse) Per Dr. Israel Rhodes, tko NS due to fluid overload onver darnell Transaction, Provider Unknown - 12/27/2017 11:01 AM PDT Progress Notes by Melyssa Harley RN at 12/27/17 1101 Author: Melyssa Harley RN Service: (none) Author Type: Registered Nurse Filed: 12/27/17 1132 Date of Service: 12/27/17 1101 Status: Signed Fulling Mill Operator: Melyssa Harley RN (Registered Nurse) Pt arrived to ICU room [address] onver darnell Transaction, Provider Unknown - 12/27/2017 7:35 AM PDT Nurse Progress Note by Jane Real RN at 12/27/1735 Author: Jane Real RN Service: -Emergency Author Type: Registered Nurse Filed: 12/27/17 1034 Date of Service: 12/27/17734 Status: Signed Fulling Mill Operator: Jane Real RN (Registered Nurse) During report [employer] rn dante came to retrieve pt for procedure. Transfer of care performe d without event. onver darnell Transaction, Provider Unknown - 12/27/2017 2:21 AM PDT Nurse Progress Note by Demian Ling RN at 12/27/17220 Author: Demian Ling RN Service: (none) Author Type: Registered Nurse Filed: 12/27/17 0606 Date of Service: 12/27/17220 Status: Addendum Fulling Mill Operator: Demian Ling RN (Registered Nurse) Related [...] 12/26/171920 Date of Service: 12/26/171919 Status: Signed Fulling Mill Operator: Lilliana Westbrook RN (Registered Nurse) Chart check review complete. Lilliana Westbrook onver darnell Transaction, Provider Unknown - 12/26/2017 4:50 PM PDT Pharmacy Note by Rolando Russell RPH at 12/26/170 Author: Rolando Russell RPH Service: Pharmacy Author Type: Pharmacist Filed: 12/26/17 165 Date of Service: 12/26/171649 Status: Signed Fulling Mill Operator: Rolando Russell RPH (Pharmacist) Renal Dosing [...] Rolando Russell docume nted in this encounter H&P Notes Pasha Buck MD - 12/26/2017 4:35 PM PDTFormatting of this note might be differe nt from the original. H&P by Pasha Buck MD at 12/26/17 5585 Author: Pasha Buck MD Service: Hospitalist Author Type: Physician Filed: 12/27/17 1356 Date of Service: 12/26/17 1635 Status: Signed Fulling Mill Operator: Pasha Buck MD (Physician) Related Notes: Original Note by Pasha Buck MD (Physician) filed at 12/26/17 16 52 [facility] Service: Hospitalist Admission History & Physical Date of Admission: 12/26/2017 Requesting Physician: [facility] ED physician. Reason for Admission: Unstable angina. History Obtained From: patient CHIEF COMPLAINT: Severe chest pain. Onset this morning. HISTORY OF PRESENT ILLNESS The patient is 77 y.o. female with significant past medical history of coronary artery dise ase status post CABG in 1994 in [place], ischemic cardiomyopathy with most recent ejection fr [...] She came to the emergency department of [facility] in [place], [place], where franklin khoury was given IV [...] no cardiology service is availa ble at [facility], hence the patient was transferred to this [...] 08/15/2003 intial AICD 2003, generator change 03/27/11, [employer] Telogen E110, s# [id number]; R V Lead - Guidant 0184, s# [id number] (08/15/03); RA Lead - Guidant Fineline II EZ Sterox 4469, s # [id number] (08/15/03) CHF (congestive heart failure) ([facility]) chronic systolic heart failure, EF was 27% in the past, improved to 50-55% on echo 02/18/15 Community acquired pneumonia 2011 COPD (chronic obstructive pulmonary disease) ([facility]) h/o chronic bronchitis, long h/o tobacco abuse Coronary artery disease involving [place] coronary artery multi-vessel Diabetes mellitus type 2 in obese ([facility]) History of syncope 2003 secondary to VT Hyperlipidemia Hypertension Ischemic dilated cardiomyopathy ([facility]) EF was 27% on echo 08/01/03, improved to 50-55% on echo 02/18/15 Old [place] (myocardial infarction) 1997 Pulmonary embolism ([facility]) S/P CABG x 4 1997 Secondary pulmonary arterial hypertension ([facility]) mild, RVSP 40 mm Hg (echo 02/18/15) TB (tuberculosis) Tobacco abuse Ventricular tachycardia, paroxysmal ([facility]) 2003 with Syncope, + EPS for inducible VT - 08/14/03 Past Surgical History Procedure Laterality Date CARDIAC DEFIBRILLATOR PLACEMENT intial AICD 2003, generator change 03/27/11, [employer] Telogen E110, s# [id number]; R V Lead - Guidant 0184, s# [id number] (08/15/03); RA Lead - Guidant Fineline II EZ Sterox 4469, s # [id number] (08/15/03) CARDIAC DEFIBRILLATOR REMOVAL 03/27/2011 implanted 08/15/03, generator [facility] CORONARY ARTERY BYPASS GRAFT 1997 4-vessel KNEE [...] due to unstable angina, though non-ST elevation AK cannot be ent irely ruled out. Troponin [...] PDT Consult* by NASRA Fontanez at 12/27/17 4307 Author: NASRA Fontanez Service: Time Lock Expert Author Type: Advanced Registered Nu rse Practitioner Filed: 12/27/17 1503 Date of Service: 12/27/171113 Status: Signed Fulling Mill Operator: NASRA Fontanez (Advanced Registered Nurse Practitioner) [facility] Service: Time Lock Expert Initial Consult Note Yuliana Humphreys 77 y.o. [...] (2003), HTN, current smoker, who presented to [facility] in [place] due to midsternal chest pain that started when she went for a walk. The pain radiated to her L shou lder and she became nauseous and diaphoretic. The patient had similar episodes when she had her CABG in 1994. EKG was done at [place] which revealed non-specific ST-T changes (no pre vious EKG to compare). She had borderline troponin elevation and was transferred to [facility] for cardiology services on heparin [...] 08/15/2003 intial AICD 2003, generator change 03/27/11, [employer] Telogen E110, s# [id number]; R V Lead - Guidant 0184, s# [id number] (08/15/03); RA Lead - Guidant Fineline II EZ Sterox 4469, s # [id number] (08/15/03) CHF (congestive heart failure) (HCC) chronic systolic heart failure, EF was 27% in the past, improved to 50-55% on echo 02/18/15 Community acquired pneumonia 2011 COPD (chronic obstructive pulmonary disease) ([facility]) h/o chronic bronchitis, long h/o tobacco abuse Coronary artery disease involving [place] coronary artery multi-vessel Diabetes mellitus type 2 in obese ([facility]) diet controlled History of syncope 2003 secondary to VT 2003, one recurrent episode remotely since her AICD was implanted. Hyperlipidemia Hypertension Ischemic dilated cardiomyopathy ([facility]) EF was 27% on echo 08/01/03, improved to 50-55% on echo 02/18/15 Old [place] (myocardial infarction) 1993 Osteoarthritis Pulmonary embolism ([facility]) S/P CABG x 3 1994 SVG>LAD, SVG>OM, SVG>RCA (she thought she had 4 grafts, which has been on her records for years, but only 3 vein grafts present on cath 12/27/17) Secondary pulmonary arterial hypertension ([facility]) mild, RVSP 40 mm Hg (echo 02/18/15) TB (tuberculosis) pulmonary, treated for "6 years" Tobacco abuse Ventricular tachycardia, paroxysmal ([facility]) 2003 with Syncope, + EPS for inducible VT - 08/14/03 PAST SURGICAL HISTORY Past Surgical History Procedure Laterality Date CARDIAC DEFIBRILLATOR PLACEMENT intial AICD 2003, generator change 03/27/11, [employer] Telogen E110, s# [id number]; R V Lead - Guidant 0184, s# [id number] (08/15/03); RA Lead - Guidant Fineline II EZ Sterox 4469, s # [id number] (08/15/03) CARDIAC DEFIBRILLATOR REMOVAL 03/27/2011 implanted 08/15/03, generator was at [facility] CORONARY ARTERY BYPASS GRAFT 1994 SVG>LAD, SVG>OM, [...] INFUSIONS dextrose heparin 50 units/mL Stopped (12/27/17 0717) sodium chloride (IV) 75 mL/hr at 12/27/17 6457 sodium chloride (IV) FAMILY HISTORY OF SIGNIFICANCE Family History Problem Relation Age of Onset Coronary Artery Disease Mother 60 [place] Alzheimer's disease Brother Diabetes Mellitus II Brother Thyroid disease Daughter SOCIAL HISTORY Social History Social History Marital status: Spouse name: N/A Number of children: N/A Years of education: N/A Occupational History 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 Morrsi 12/27. On ASA , atorvastatin, clopidogrel, lisinopril [...] monitor UOP closely . Current smoker - activities counselor regarding smoking cessation GI/NUTRITION: NPO for [...] 12/27/17916 Date of Service: 12/26/171701 Status: Addendum Fulling Mill Operator: Nash Genao MD (Physician) Related Notes: Original Note by Nash Genao MD (Physician) filed at 12/27/17916 [facility] Service: Cardiology Initial Consult Note Date of Admission: 12/26/2017 Reason for Consultation: Chest pain/pressure Requesting Physician: Pasha Buck MD History Obtained From: patient ,along with an extensive review [facility] CHIEF COMPLAINT: Chest pain/pressure HISTORY OF [...] ambulance to the emerg ency room at [facility], arrived approximately 1 hour after onset of [...] has a history of CAD, with an AK in 1993, "almost the exact same thing" [...] a heart murmur, 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 She has Es sential Hypertension, Hyperlipidemia. She [...] hesitancy . She has urinary incontinence. No Merry Go Round Attendant disorders. HEMATOLOGY/ONCOLOGY: No h/o bleeding disorders, denies [...] 08/15/2003 intial AICD 2003, generator change 03/27/11, [employer] Telogen E110, s# [id number]; R V Lead - Guidant 0184, s# [id number] (08/15/03); RA Lead - Guidant Fineline II EZ Sterox 4469, s # [id number] (08/15/03) CHF (congestive heart failure) ([facility]) chronic systolic heart failure, EF was 27% in the past, improved to 50-55% on echo 02/18/15 Community acquired pneumonia 2011 COPD (chronic obstructive pulmonary disease) ([facility]) h/o chronic bronchitis, long h/o tobacco abuse Coronary artery disease involving [place] coronary artery multi-vessel Diabetes mellitus type 2 in obese ([facility]) diet controlled History of syncope 2003 secondary to VT 2003, one recurrent episode remotely since her AICD was implanted. Hyperlipidemia Hypertension Ischemic dilated cardiomyopathy (HCC) EF was 27% on echo 08/01/03, improved to 50-55% on echo 02/18/15 Old AK (myocardial infarction) 1993 Osteoarthritis Pulmonary embolism (HCC) [...] change 03/27/11, [employer] Telogen E110, s# [id number]; R V Lead - Guidant 0184, s# [id number] (08/15/03); RA Lead - Guidant Fineline II EZ Sterox 4469, s # [id number] (08/15/03) CARDIAC DEFIBRILLATOR REMOVAL 03/27/2011 implanted 08/15/03, [facility] CORONARY ARTERY BYPASS GRAFT 1994 SVG>LAD, SVG>OM, [...] of Onset Coronary Artery Disease Mother 60 [place] Alzheimer's disease Brother Diabetes Mellitus II Brother [...] mildly obese, well developed, well nourished elderly [employer] can woman, in no distress. Appears [...] () 12/26/2017 TROPONINI 1.84 () 12/26/2017 From [facility]: WBC 9.3, hemoglobin 13.8, hematocrit 40.8, platelets [...] Cardiac defibrillator in situ Hypertension Morbid obesity ([facility]) Tobacco use disorder ASSESSMENT & PLAN [...] than one vascular acces s site, , AK, CVA, bleeding (including the need for blood [...] consent for the procedure. 2. H/o old AK, dilated ischemic cardiomyopathy, EF at one time [...] hemoglobin A1c will be checked in the [facility]. 9. History of anxiety with panic attacks, [...] in the care of this patient. Nash Genao MD 12/27/2017 9:16 AM documented in this e ncounter Miscellaneous Notes Plan of Care - Francesco Edmonds MD - 12/31/2017 9:11 AM PDTFormatting of this note might b e different from the original. Plan of Care by Francesco Edmonds MD at 12/31/17910 Author: Francesco Edmonds MD Service: Hospitalist Author Type: Physician Filed: 12/31/17911 Date of Service: 12/31/17910 Status: Signed Fulling Mill Operator: Francesco Edmonds MD (Physician) Patient qualifies for [...] 0507 Date of Service: 12/31/17505 Status: Signed Fulling Mill Operator: Aishwarya Marr RN (Registered Nurse) Pain Patient's [...] 12/30/171603 Date of Service: 12/30/171603 Status: Signed Fulling Mill Operator: Pamela Wagner RN (Registered Nurse) Problem: Pain [...] 12/29/172120 Date of Service: 12/29/172120 Status: Signed Fulling Mill Operator: Merlene Vieira RN (Registered Nurse) Problem: Pain [...] 12/29/171510 Date of Service: 12/29/171509 Status: Signed Fulling Mill Operator: Parmjit Hernandez PT (Physical Therapist) PHYSICAL THERAPY EVALUATION PT Received On: 12/29/17 Reason for Treatment: Deconditioning Requires PT Follow Up: Awaiting tx order Follow up PT Only?: No PT Eval/Reassessment Date: 12/29/17 Assistance Required: 1 person Fishing Rod Marker Needed: No Recommendations: Home Assist, PT Barriers to Discharge: Physical Deficits Impacting Functional Linn Recommendation Comments: Patient demonstrates fair functional strength, but limited activit y tolerance. She has good family support that resides with her at home, as well as a caregiv er for 4 hours/day. She does not do much community ambulation. Anticipate she may benefit [facility] PT services to promote functional strength and [...] session, able to mobilize into BR in [facility]. She does benefit from light steadying assist [...] Walker 4 wheeled Prior Function Level of Linn: Modified independent with functional mobility, Assist with [...] Assistive Device: Least restricitve device Low - 82218 Moderate - 73245 High - 06916 History [] no personal factors &/or comorbidities [x] 1-2 personal factors &/or comorbidit ies [] 3 or more personal factors &/or comorbidities Examination [] 1-2 elements [x] 3 elements [] 4 or more elements Clinical Presentation [x] stable [] evolving [] unstable Clinical Decision Making Complexity: [x] Low 29021 [] Moderate 12103 [] High 9 7163 lan o f Care - Conversion Transaction, Provider Unknown - 12/28/2017 11:03 PM PDTFormatting of thi s note might be different from the original. Plan of Care by Merlene Vieira RN at 12/28/172302 Author: Merlene Vieira RN Service: (none) Author Type: Registered Nurse Filed: 12/28/172302 Date of Service: 12/28/172302 Status: Signed Fulling Mill Operator: Merlene Vieira RN (Registered Nurse) Problem: Pain [...] 12/28/171732 Date of Service: 12/28/171730 Status: Signed Fulling Mill Operator: Francesco Edmonds MD (Physician) Received sign out [...] of Care by NASRA Fontanez at 12/28/17 1144 Author: NASRA Fontanez Service: Time Lock Expert Author Type: Advanced Registered Nu rse Practitioner Filed: 12/28/17 1149 Date of Service: 12/28/17 114 Status: Signed Fulling Mill Operator: NASRA Fontanez (Advanced Registered Nurse Practitioner) Patient [...] graciously accepted this patient to the hospitalist [facility]. Orders placed for transfer. lan of Care - C onversion Transaction, Provider Unknown - 12/28/2017 10:25 AM PDTFormatting of this note yimi ht be different from the original. Plan of Care by Leticia Dozier RN at 12/28/17 1025 Author: Leticia Dozier RN Service: (none) Author Type: Registered Nurse Filed: 12/28/17 1025 Date of Service: 12/28/17 1025 Status: Signed Fulling Mill Operator: Leticia Dozier RN (Registered Nurse) Activity Intolerance/Impaired [...] Date of Service: 12/27/17 1108 Status: Signed Fulling Mill Operator: Yvette Morirs MD (Physician) History and Risk Factors: - essential hypertension, without renal disease, with hypertensive heart disease (with hear t failure) - chronic systolic CHF - CAD of autologous bypass graft with unstable angina - past AK, occured over 28 days prior to admission [...] SVG to OM3 Pre: 90% Post: 0% PASSENGER SERVICE AGENT: No DYLAN: Pre - 3; Post - [...] 12/26/172030 Date of Service: 12/26/172029 Status: Signed Fulling Mill Operator: Demian Ling RN (Registered Nurse) Problem: Pain [...] 12/26/171615 Date of Service: 12/26/171615 Status: Signed Fulling Mill Operator: Lilliana Pietro, RN (Registered Nurse) Problem: Knowledge [...] MARTINEZ | | | | | | [place] [address] | | | | | | [phone] | | | | | | | [...] | | | Fingerstick | performed at [facility] [place];[address] | | LAB | | | | Cindy Rodriges;[place] | | | | | | [address] | | | | + + + [...] | | | Fingerstick | performed at [facility] [place];[address] | | LAB | | | | [address]indy Rodriges;[place], [place] | | | | | | [address] | | | | + + + [...] | | | Fingerstick | performed at [facility] [place];[address] | | LAB | | | | Cindy Rodriges;[place] | | | | | | [address] | | | | + + + [...] | | | Basophils | performed at [facility] [place] [place];[address] | K/uL | LAB | | | | [address];[place], [place] | | | | | | [address] | | | | + + + [...] EXTERNAL | | | | performed at [facility] [place];[address] | | LAB | | | | [address]indy Rodriges;[place], [place] | | | | | | [address] | | | | + + + [...] EXTERNAL | | | | performed at [facility] [place];[address] | | LAB | | | | [address] [facility];[place], [place] | | | | | | [address] | | | | + + + [...] | | | | | performed at [facility] [place] [place];[facility] | | | | | | [facility];[place], [place] | | | | | | [address] | | | | + + + [...] | | | Fingerstick | performed at [facility] [place] [place];[address] | | LAB | | | | [address];[place] | | | | | | [address] | | | | + + + [...] | | | Fingerstick | performed at [facility] [place];[address] | | LAB | | | | [address];[place] | | | | | | [address] | | | | + + + [...] | | | Fingerstick | performed at [facility] [place];[address] | | LAB | | | | [address]indy Rodriges;[place] | | | | | | [address] | | | | + + + [...] | | | Fingerstick | performed at [facility] [place];[address] | | LAB | | | | Cindy Sandoval;[place], [place] | | | | | | [address] | | | | + + + [...] | | | Basophils | performed at [facility], [address] | K/uL | LAB | | | | [place], | | | | | | [place] [address] | | | | + + + [...] EXTERNAL | | | | performed at [facility], [address] | | LAB | | | | [place] [address], | | | | | | [place] [address] | | | | + + + [...] EXTERNAL | | | | performed at [facility], [address] | | LAB | | | | [place], | | | | | | [place] [address] | | | | + + + [...] | | | | | performed at [facility], [address] | | | | | | [facility], | | | | | | [place] [address] | | | | + + + [...] | | | Fingerstick | performed at [facility] [place];[address] | | LAB | | | | [address];[place] | | | | | | [address] | | | | + + + [...] | | | Fingerstick | performed at [facility] [place] [place];[address] | | LAB | | | | [address];[place], [place] | | | | | | [address] | | | | + + + [...] | | | Fingerstick | performed at [facility] [place] [place];[address] | | LAB | | | | Cindy Rodriges;[place] | | | | | | [address] | | | | + + + [...] | | | Basophils | performed at [facility] [place] [place];[address] | K/uL | LAB | | | | Cindy Rodriges;[place] | | | | | | [address] | | | | + + + [...] EXTERNAL | | | | performed at [facility] [place] [place];[address] | | LAB | | | | Cindy Rodriges;[place], [place] | | | | | | [address] | | | | + + + [...] EXTERNAL | | | | performed at [facility] [place];[address] | | LAB | | | | [place]indy Rodriges;[place] | | | | | | [address] | | | | + + + [...] EXTERNAL | | | | performed at [facility] [place];[address] | | LAB | | | | [address]indy Rodrig[address];[place], [place] | | | | | | [address] | | | | + + + [...] | | | | | | MDRD [facility] traceable | | | | | | equation.Testing | | | | | | performed at [facility] [place] [place];[facility] | | | | | | [facility];[place], [place] | | | | | | [address] | | | | + + + [...] | | | Fingerstick | performed at [facility] [place];[address] | | LAB | | | | [address];[place] | | | | | | [address] | | | | + + + [...] | | | Fingerstick | performed at [facility] [place] [place];[address] | | LAB | | | | [address]indy [address];[place], [place] | | | | | | [address] | | | | + + + [...] | | | Fingerstick | performed at [facility] [place] [place];[address] | | LAB | | | | [address];[place], [place] | | | | | | [address] | | | | + + + [...] | | | Fingerstick | performed at [facility] [place] [place];88 | | LAB | | | | [address]indy Rodriges;[place] | | | | | | [address] | | | | + + + [...] + + | Historically converted procedure from [facility] Epic environment | EXTERNAL LAB | + [...] | | | Basophils | performed at [facility] [place] [place];[address] | K/uL | LAB | | | | Cindy Rodriges;[place] | | | | | | [address] | | | | + + + [...] | | | | | performed at [facility], [address] | | | | | | [place] [facility], | | | | | | [place] [address] | | | | + + + [...] EXTERNAL | | | | performed at [facility] [place] [place];[address] | | LAB | | | | Cindy Rodriges;[place] | | | | | | [address] | | | | + + + [...] EXTERNAL | | | | performed at [facility] [place];[address] | | LAB | | | | [place]indy Rodriges;[place] | | | | | | [address] | | | | + + + [...] | | | Fingerstick | performed at [facility] [place] [place];[facility] | | LAB | | | | [address];[place], [place] | | | | | | [address] | | | | + + + [...] | | | Fingerstick | performed at [facility] [place] [place];[address] | | LAB | | | | [address];[place] | | | | | | [address] | | | | + + + [...] EXTERNAL | | | | performed at [facility] [place] [place];[address] | mmol/L | LAB | | | | [address];[place], [place] | | | | | | [address] | | | | + + + [...] EXTERNAL | | | | performed at [facility] [place] [place];[address] | | LAB | | | | [facility];[place], [place] | | | | | | [address] | | | | + + + [...] | | | | | INDICATIONS Acute AK CONCLUSIONS 1. | | | This was [...] TR Vmax: | | | 3.63 m/s Repairer Finished Metal: Authenticated by: NASH GENAO MD | | [...] (A-L): 30.10 ml/m2LAAs A2C: 25.25 | | [id number] A-L A2C: 80.09 mlLALs A2C: 6.76 cmLAAs A4C: 17.87 [id number] A-L A4C: | | 42.38 mlLALs A4C: 6.39 cmTAPSE: 2.27 cmHR: 57.46 BPMAV maxP.37 mmHgAV | | meanP.40 mmHgAV Vmax: 1.61 m/Maurice Vmean: 1.22 m/Maurice VTI: 41.09 cmAVA Vmax: | | 2.19 cm2AVA (VTI): 1.92 gv0JTVL Vmax: 0.00 cm2/m2AVAI (VTI): 0.00 cm2/m2LVCI Dopp: | | 2.22 l/pdgd3YUKR Dopp: 4.42 l/minHR: 55.98 BPMLVOT maxP.74 mmHgLVOT [...] maxP.80 mmHgTR Vmax: 3.63 m/s | | Repairer Finished Metal: Debbiehenticated by: Haily HATCH Date/Time: 12-27-2017 18:35:12 [...] |TR Vmax: 3.63 m/s | | | |Repairer Finished Metal: JR | |Authenticated by: NASH GENAO MD [...] | | | Fingerstick | performed at [facility] [place] [place];[address] | | LAB | | | | Cindy Rodriges;[place] | | | | | | [address] | | | | + + + [...] | | | Fingerstick | performed at [facility] [place] [place];[address] | | LAB | | | | [place]indy Rodriges;[place] | | | | | | [address] | | | | + + + [...] NEGATIVE Testing | | | performed at [facility] [place] [place];[address] [place] [address];[place] [address] | | + + + + +---------+ [...] femoral | | | artery through a 6-Saudi Arabian, 23 cm sheath. I walked into the room, | | | introduced myself to the patient. A new timeout was performed, and | | | through the right femoral sheath I advanced a 6-Saudi Arabian AL1 guide. | | | That was [...] and then I advanced a short [employer] [place] wire to the | | | obtuse [...] | over the wire I advanced an [place] 6-Saudi Arabian retrieval device that | | | retrieved [...] was to do an attempt of a 6-S[place] Perclose device, so I | | | [...] | | common femoral artery through a 6-[place], 23 cm sheath. I walked into the | | room, introduced myself to the patient. A new timeout was performed, and | | through the right femoral sheath I advanced a 6-S[place] AL1 guide. That was | | advanced [...] and then I advanced a short [employer] [place] wire to the | | obtuse marginal, [...] so over the wire I advanced an [place] 6-Saudi Arabian | | retrieval device that retrieved a [...] do an attempt | | of a 6-S[place] Perclose device, so I removed the sheath [...] | | | POC | performed at [facility] [place] [place];888 | g/dL | LAB | | | | [address]indy Rodriges;[place], [place] | | | | | | [address] | | | | + + + [...] | | | Clotting | performed at [facility] [place] [place];[address] | seconds | LAB | | | time, POC | [address]indy Rodriges;[place] | | | | | | [address] | | | | + + + [...] | | | Fingerstick | performed at [facility] [place] [place];[address] | | LAB | | | | [place]indy Rodriges;[place] | | | | | | [address] | | | | + + + [...] | | | Clotting | performed at [facility] [place] [place];[address] | seconds | LAB | | | time, POC | Cindy Rodriges;[place], [place] | | | | | | [address] | | | | + + + [...] | | | Clotting | performed at [facility] [place] [place];[address] | seconds | LAB | | | time, POC | Cindy Rodriges;[place] | | | | | | [address] | | | | + + + [...] | | | Clotting | performed at [facility] [place] [place];[address] | seconds | LAB | | | time, POC | Cindy Rodriges;[place] | | | | | | [address] | | | | + + + [...] attempt. The guidewire was passed and a 6-Saudi Arabian | | | introducer sheath was inserted into the right common femoral artery. | | | A 0.035-inch J-tip guidewire was used to advance a 5-S[place] Arabian FL4 via | | | the aortic root where it was used to perform selective angiography | | | of the [place] left coronary circulation in multiple views in standard | | | fashion. Via guidewire exchange, a 5-Saudi Arabian FR4 catheter was | | | advanced to the aortic root, but failed to locate the ostium of the | | | [place] right coronary artery, which is presumed to [...] J-tip guidewire | | | for a 5-Saudi [place] ANAMARIA catheter, which was used to perform [...] easily visible on | | | fluoroscopy. [place] CORONARY ARTERIES: 1. Left Main: This is [...] | | and a large first septal landcare officer branch. This septal landcare officer | | | branch is normal. The [...] widely | | | patent. There are [id number] collaterals to the third obtuse | | [...] disease. | | | CONCLUSIONS: 1. Severe [place] 3-vessel coronary artery disease | | | with an occluded left anterior descending artery and presumed total | | | occlusion of the proximal [place] right coronary artery. 2. Patent | | [...] attempt. The guidewire was passed and a 6-Saudi Arabian introducer sheath was | | inserted into the right common femoral artery. A 0.035-inch J-tip | | guidewire was used to advance a 5-Saudi Arabian FL4 via the aortic root where it | | was used to perform selective angiography of the [place] left coronary circulation | | in multiple views in standard fashion. Via guidewire exchange, a 5-Saudi Arabian | | FR4 catheter was advanced to the aortic root, but failed to locate the | | ostium of the [place] right coronary artery, which is presumed to [...] 0.035-inch J-tip guidewire for a | | 5-Saudi Arabian ANAMARIA catheter, which was used to perform [...] Please see the separate report, dictated by Yvetet Morris MD, for | | details regarding [...] visible on fluoroscopy. | | | | [place] CORONARY ARTERIES: | | 1. Left Main: [...] and a large first septal | | landcare officer branch. This septal landcare officer branch is normal. The first | | [...] | and is widely patent. There are [id number] collaterals to the third | | obtuse [...] | | CONCLUSIONS: | | 1. Severe [place] 3-vessel coronary artery disease with an occluded left | | anterior descending artery and presumed total occlusion of the proximal | | [place] right coronary artery. | | 2. Patent [...] | | | Patient | performed at [facility] [place] [place];[address] | | LAB | | | | Cn[address] Rodriges;[place], [place] | | | | | | [address] | | | | + + + [...] | | | Fingerstick | performed at [facility] [place] [place];[address] | | LAB | | | | Cindy Rodriges;[place] | | | | | | [address] | | | | + + + [...] | | | | | | ACUTE AK CALLED NURSING | | | | | | UNITREAD BACK RESULTS | | | | | | VERIFIEDMERLENE Meehan IN 4RP | | | | | | AT 0603 BY TDTesting | | | | | | performed at [facility] [place] [place];[facility] | | | | | | [address] [facility];[place], [place] | | | | | | [address] | | | | + + + [...] | | | Basophils | performed at [facility], [address] | K/uL | LAB | | | | [place] [address], | | | | | | [place] [address] | | | | + + + [...] EXTERNAL | | | | performed at [facility], [address] | uIU/mL | LAB | | | | [place], | | | | | | [place] [address] | | | | + + + [...] | | | | | [place] [address] | | | | + + + [...] EXTERNAL | | | | performed at [facility], [address] | | LAB | | | | [place] [address], | | | | | | [place] [address] | | | | + + + [...] | EXTERNAL | | | A1c | [place] Diabetes | | LAB | | | [...] | | | | | performed at [facility], [address] | | | | | | [facility], | | | | | | [place] [address] | | | | + + + [...] | | | Calculated | performed at [facility], [address] | | LAB | | | | [place], | | | | | | [place] [address] | | | | + + + [...] | | | | | performed at [facility], [address] | | | | | | [facility], | | | | | | [place] [address] | | | | + + + [...] | | | | | | ACUTE AK CALLED TO | | | | | | BANDAR Mccormick RN/SOCRATES AT | | | | | | 0030 BY MWREAD BACK | | | | | | RESULTS VERIFIEDTesting | | | | | | performed at [facility] [place];[facility] | | | | | | [facility];[place], [place] | | | | | | [address] | | | | + + + [...] | | | Patient | performed at [facility] [place];888 | | LAB | | | | Cindy Rodriges;[place] | | | | | | [address] | | | | + + + [...] | | | Fingerstick | performed at [facility] [place];[address] | | LAB | | | | [address];[place], [place] | | | | | | [address] | | | | + + + [...] + + | Historically converted procedure from [facility] Epic environment | EXTERNAL LAB | + [...] | | | | | | ACUTE AK CALLED | | | | | | RESULTSREAD BACK RESULTS | | | | | | PAKO Franklin/SOCRATES AT | | | | | | 1751 BY MAHTesting | | | | | | performed at [facility] [place];888 | | | | | | [address] [facility];[place], [place] | | | | | | [address] | | | | + + + [...] | | | Patient | performed at [facility] [place];888 | | LAB | | | | [address];[place], [place] | | | | | | [address] | | | | + + + [...] | | | | | performed at [facility] [place];[facility] | | | | | | [address];[place], [place] | | | | | | [address] | | | | + + + [...] | | | Fingerstick | performed at [facility] [place];888 | | LAB | | | | Cindy Rodriges;[place] | | | | | | [address] | | | | + + + [...]
--- OUTSIDE RECORDS SUMMARY | ~2020-01-22 | XMS | Encounter Summary ---
Demographics + + + | Address | [address] | | | [place] [address] | + + + | Home Phone [...] Providers + +------+ + | Care Solar Project Coordination Specialist Name | Role | Phone | + +------+ + PCP | Unavailable | + +------+ + Encounter Details +--------+ + + + + | Date | Type | Department | Care Team | Description | +--------+ + + + + | 03/27/ | Hospital | [facility] | Arthur Childers | Fitting and | | 2009 | Encounter | [facility] | MD Johnnie [address] | adjustment of | | | | CLINICAL DECISION | [address], | automatic | | | | [address] | [place] [address] | implantable cardiac | | | | [place], [place] | [phone] | defibrillator | | | | [address] | | | | | | [phone] | | | +--------+ + + + [...] MARTINEZ | | | | | | [place] [address] | | | | | | [phone] | | | | | | | [...]
--- OUTSIDE RECORDS SUMMARY | ~2020-01-22 | XMS | Encounter Summary ---
Demographics + + + | Address | [address] | | | [place] [address] | + + + | Home Phone [...] Team Providers + +------+ + | Care Crime Specialist Name | Role | Phone | [...] + + | 12/12/ | Telephone | [facility] | Barak Caba | Appointment | | 2019 | | CARDIOLOGY [place] | MD [address] | | | | | [address] | [address] [facility] | | | | | [place], [place] | [place] [address] | | | | | [address] | [phone] | | | | | [phone] | | | +--------+ + + + [...] | | | | | | [place] [address] | | | | | | [phone] | | | | | | | | +--------+ + + + + | 07/22/ | Procedure | Cardiology | | | | 2020 | visit | | | | +--------+ + + + + documented as of this encounter Visit Diagnoses Not on filedocumented in this encounter"
--- OUTSIDE RECORDS SUMMARY | ~2020-01-22 | XMS | Encounter Summary ---
Demographics + + + | Address | [address] | | | [place] [address] | + + + | Home Phone [...] Team Providers + +------+ + | Care Food Trades Assistants Name | Role | Phone | + +------+ + | Roxana Barajas PA-C | PCP | | + +------+ + Encounter Details +--------+ + + + + | Date | Type | Department | Care Team | Description | +--------+ + + + + | 03/27/ | Orders Only | [facility] | Arthur Chidlers | | | 2009 | | [facility] | MD Johnnie [address] | | | | | CLINICAL LABORATORY | [address] [place], | | | | | [address] | [place] [address] | | | | | [place], [place] | [phone] | | | | | [address] | | | | | | [phone] | | | +--------+ + + + [...] MARTINEZ | | | | | | [place] [address] | | | | | | [phone] | | | | | | | [...] EXTERNAL LAB | | Testing performed at [facility];[address] [place] [address];[place] [address] MRSA PCR | | | NEGATIVE Testing performed at | | | [address];[place] [address] | | + + + + +---------+ + + | Performing | Address | City/State/Zipcode | Phone Number | | Organization | | | | + +---------+ + + | EXTERNAL LAB | | | | + +---------+ + + documented in this encounter Visit Diagnoses Not on filedocumented in this encounter"
--- OUTSIDE RECORDS SUMMARY | ~2020-01-22 | XMS | Encounter Summary ---
Demographics + + + | Address | [address] | | | [place] [address] | + + + | Home Phone [...] Team Providers + +------+ + | Care Speaking Unit Assembler Name | Role | Phone | [...] | month remote | PA-C [address] | [place] | | | | | Procedures | [address] | [address] | | | | | REMOTE | [address] | | | | | DEVICE CHECK | [address] | [place], [place] | | | | | | [facility] | [address] | | | | | | [place] | Phone: | | | | | | [address] | [phone] | | | | | | Phone: | Fax: | | | | | | [phone] | [phone] | | | | | | Fax: | | | | | | | [phone] | | +--------+--------+ + + + + Encounter Details +--------+ + + + + | Date | Type | Department | Care Team | Description | +--------+ + + + + | 03/13/ | Procedure | [facility] | | Cardiac | | 2019 | visit | CARDIOLOGY [place] | | defibrillator in | | | | [address] | | situ (Primary Dx) | | | | [place], [place] | | | | | | [address] | | | | | | [phone] | | | +--------+ + + + [...] Hewitt Primary electrophysiology provider: Erin Caba Device retail asset protection specialist: [employer] Device type: Dual chamber Battery Longevity: [...] MARTINEZ | | | | | | [place] [address] | | | | | | [phone] | | | | | | | [...] Barajas PA-C : 1940MRN: | | | [id number] Primary cardiology provider: Tres Hewitt Primary | | | electrophysiology provider: Erin Caba Device retail asset protection specialist: | | | [employer] Device type: Dual chamber Battery Longevity: [...]
--- OUTSIDE RECORDS SUMMARY | ~2020-01-22 | XMS | Encounter Summary ---
Demographics + + + | Address | [address] | | | [place] [address] | + + + | Home Phone | | + + + | Preferred Language | Unknown | + + + | Marital Status | | + + + | Protestant Affiliation | 1041 | + + + [...] Team Providers + +------+ + | Care Bowling Ball Engraver Name | Role | Phone | + [...] | | | | | | | [address] | | | | | | | Phone: | | | | | | | [phone] | | | | | | | Fax: | | | | | | | [phone] | | + +--------+ + + + [...] | | Medicine - | Screening | [place] | Barak | | | | Clinical | Complete 6 | [place] Citizen | MD [address]ablito | | | | Cardiac | [place] FU | Health | [address] | | | | Electrophysio | Procedures | | DR MARTINEZ | | | | logy / | OFFICE VISIT | | [place], [place] | | | | Cardiology | REGULAR | | [address] Phone: | | | | | | | [phone] | | | | | | | Fax: | | | | | | | [phone] | +--------+--------+ + + + + Encounter Details +--------+---------+ + + + | Date | Type | Department | Care Team | Description | +--------+---------+ + + + | 01/02/ | Office | [facility] EP | Barak Suarez | Ischemic | | 2019 | Visit | CARDIOLOGY [place] | MD [address] | cardiomyopathy | | | | [address] | [address] | (Primary Dx); | | | | [place], [place] | [place] [address] | Inducible | | | | [address] | [phone] | ventricular | | | | [phone] | | tachycardia (HCC); | | | [...] 2011 COPD (chronic obstructive pulmonary disease) ([facility]) h/o chronic bronchitis, long h/o tobacco abuse 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 Hyperlipidemia Hypertension Ischemic dilated cardiomyopathy ([facility]) EF was 27% on echo 08/01/03, improved to 50-55% on echo 02/18/15 Old HI (myocardial infarction) 1993 Osteoarthritis Pulmonary embolism ([facility]) AC Pulmonary hypertension ([facility]) RVSP 58-63 on echo 01/01 S/P CABG [...] PLACEMENT intial AICD 2003, generator change 03/27/11, [employer] Telogen E110, s# [id number]; R V Lead - Guidant 0184, s# [id number] (08/15/03); RA Lead - [employer] Fineline II EZ Sterox 4469, s # [id number] (08/15/03) COLONOSCOPY CORONARY ARTERY BYPASS GRAFT 1994 [...] MR, mild TR, tr [place], RVSP 58-63 Family History Problem Relation Age of Onset Coronary artery disease Mother 60 [place] Alzheimer's disease Brother Other (see comment) Brother [...] om May 2019 Device Interrogation: Her dual-chamber [employer] ICD was interrogated and found to [...] around that time. She continues to follow [facility]ology. She will have a follow-up echocardiogram [...] [place]ARTINEZ | | | | | | [place] [address] | | | | | | [phone] | | | | | | | [...] MD | | | | | | ([id number]) on 01/08/2020 | | | | | [...]
--- OUTSIDE RECORDS SUMMARY | ~2020-01-22 | XMS | Encounter Summary ---
Demographics + + + | Address | [address] | | | [place] [address] | + + + | Home Phone [...] Team Providers + +------+ + | Care Spinning Machine Operator Name | Role | Phone [...] logy / | OFFICE VISIT | | [place], [place] | | | | Cardiology | REGULAR | | [address] Phone: | | | | | | | [phone] | | | | | | | Fax: | | | | | | | [phone] | +--------+--------+ + + + + Encounter Details +--------+ + + + + | Date | Type | Department | Care Team | Description | +--------+ + + + + | 01/02/ | Procedure | [facility] | | Cardiac | | 2019 | visit | CARDIOLOGY [place] | | defibrillator in | | | | [address] | | situ (Primary Dx) | | | | [place], [place] | | | | | | [address] | | | | | | [phone] | | | +--------+ + + + [...] note on 01/03/2020: Device Interrogation: Her dual-chamber [employer] ICD was interrogated and found to [...] attached to scheduled encounter for additional details. scrap breaker: ONUR Farrell P DTdocumented in this encounter [...] MARTINEZ | | | | | | [place] [address] | | | | | | [phone] | | | | | | | [...] Device Interrogation: Her | | | dual-chamber [employer] ICD was interrogated and found to [...] | | | encounter for additional details. scrap breaker: ONUR Farrell | | | | | |Device interrogation done by Erin Caba | | | | | |Any events or changes listed in office note. | | | | | |See device data attached to scheduled encounter for additional | | |details. | | | | | |scrap breaker: ONUR Farrell | | + + + + + | Procedure Note | + + | Jami Barron RN - 01/03/2020 3:30 PM PDT Device information was obtained from | | provider's office note on 01/03/2020:Device Interrogation: Her dual-chamber [employer] | | Scientific ICD was interrogated and [...]
--- OUTSIDE RECORDS SUMMARY | ~2020-01-22 | XMS | Encounter Summary ---
Demographics + + + | Address | [address] | | | [place] [address] | + + + | Home Phone | | + + + | Preferred Language | Unknown | + + + | Marital Status | | + + + | Anabaptist Affiliation | 1041 | + + + | Race | or | + + + | Ethnic Group | Not or | + + + Author + + + | Author | [facility] | | | and [place] | + + + | Organization | [facility] | | [...] Team Providers + +------+ + | Care Substance Abuse Clinician Name | Role | Phone | + +------+ + | Pcp, Prov Inactive | PCP | | + +------+ + Encounter Details +--------+ + + + + | Date | Type | Department | Care Team | Description | +--------+ + + + + | 12/13/ | Orders Only | [facility] | Provider, | | | 2018 | | SYSTEM GENERIC OP | [address] | | | | | CONVERSION [address] | [address] [place]. | | | | | [address] [place], [place] | [place] [address] | | | | | [address] | | | | | | [phone] | | | +--------+ + + + [...] MARTINEZ | | | | | | [place] [address] | | | | | | [phone] | | | | | | | | +--------+ + + + + | 07/22/ | Procedure | Cardiology | | | | 2020 | visit | | | | +--------+ + + + + documented as of this encounter Visit Diagnoses Not on filedocumented in this encounter"
--- OUTSIDE RECORDS SUMMARY | ~2020-01-22 | XMS | Encounter Summary ---
Demographics + + + | Address | [address] | | | [place] [address] | + + + | Home Phone | | + + + | Preferred Language | Unknown | + + + | Marital Status | | + + + | Jew Affiliation | 1041 | + + + | Race | or | + + + | Ethnic Group | Not or | + + + Author + + + | Author | [facility] | | | and [place] | + + + | Organization | [facility] | | | [...] Team Providers + +------+ + | Care Advertising Columnist Name | Role | Phone | + [...] [phone] | | | | | | [place], [place] | | | | | | [address] | | | | | | [phone] | | | +--------+ + + + [...] MARTINEZ | | | | | | [place] [address] | | | | | | [phone] | | | | | | | | +--------+ + + + + | 07/22/ | Procedure | Cardiology | | | | 2020 | visit | | | | +--------+ + + + + documented as of this encounter Visit Diagnoses Not on filedocumented in this encounter
--- OUTSIDE RECORDS SUMMARY | ~2020-01-22 | XMS | Encounter Summary ---
Demographics + + + | Address | [address] | | | [place] [address] | + + + | Home Phone [...] Providers + +------+ + | Care Infrastructure Analyst Name | Role | Phone | + +------+ + PCP | Unavailable | + +------+ + Encounter Details +--------+ + + + + | Date | Type | Department | Care Team | Description | +--------+ + + + + | 03/27/ | Hospital | [facility] | Arthur Childers | Fitting and | | 2009 | Encounter | [facility] | MD Johnnie [address] | adjustment of | | | | CLINICAL DECISION | [address], | automatic | | | | [address] | [place] [address] | implantable cardiac | | | | [place], [place] | [phone] | defibrillator | | | | [address] | | | | | | [phone] | | | +--------+ + + + [...] MARTINEZ | | | | | | [place] [address] | | | | | | [phone] | | | | | | | [...]
[~2020-01-22 02:34] MED LIST changes: +CEFDINIR300 MG PO
[2020-01-22] MEDS ORDERED: PLAVIX75 MG PO (02:54)
[2020-01-22] MEDS ORDERED: OMEPRAZOLE20 MG PO (02:54)
[2020-01-22] MEDS ORDERED: FLUTICASONE-SA1 EAC5 INH (02:56)
[2020-01-22] MEDS ORDERED: VITAMIN B-12500 MCG PO (02:56)
[2020-01-22] MEDS ORDERED: CALCIUM + VITA1 EACH PO (02:56)
[2020-01-22] MEDS ORDERED: ESCITALOPRAM OX20 MG PO (02:57)
[2020-01-22] MEDS ORDERED: NITROSTAT0.4 MG SL (02:58)
--- NOTE | 2020-01-22 05:43 | NUR ---
pt ARRIVED FROM ED. MOVED SELF FROM STRETCHER TO BED 1PA. WALKS WITH A WALKER AT BASELINE. ABD PAIN 08/24. VITALS STABLE. IVF INFUSING PER ORDERS. BROUGHT A NIGHTGOWN AND SLIPPERS, IN CLOSET. NO OTHER BELONGS WITH pt.
--- NOTE | 2020-01-22 06:03 | NUR ---
PER REQUEST OF PRIMARY RN MANDY. WORTHY FOR PRN TYLENOL PLACED.
--- NOTE | 2020-01-22 06:10 | NUR ---
PRN TYLENOL GIVEN FOR 6/10 ABD PAIN (SEE EMAR) PER REQUEST OF PRIMARY RN MARTHA. CALL LIGHT IN REACH.
--- NOTE | 2020-01-22 06:40 | NUR ---
CALL LIGHT ANSWERED. PT NEEDS TO VOID. PT REQUESTS BED KYLE. 100ML STRONG SMELLING DARK YELLOW URINE PRODUCED. NO FURTHER NEEDS AT THIS TIME
--- NOTE | 2020-01-22 07:25 | NUR ---
PT SLEEPING SOUNDLY AT TIME OF BEDSIDE REPORT. APPEARS COMFORTABLE, BREATHING EVEN AND UNLABORED.
--- NOTE | 2020-01-22 09:28 | NUR ---
PT AWAKENS TO TOUCH STATES SHE WAS "SLEEPING SO GOOD" MORNING MEDS ADMINISTERED AND CLEAR LIQUID TRAY SERVED. AGREES TO USE CALL LIGHT TO GET UP OUT OF BED OR FOR OTHER NEEDS
[2020-01-22] MEDS ORDERED: LISINOPRIL5 MG PO (10:28)
--- NOTE | 2020-01-22 11:26 | NUR ---
PT UP TO SHOWER THEN RETURNS TO RESTING IN BED. STATES SHE WAS UP TIL 4AM WITH ER VISIT AND ACTIVITY, REPORTS SHE NEEDS TO SLEEP FOR A TIME. AGREES SHE IS COMFORTABLE DENIES NEEDS OF. CALL LIGHT IN REACH
--- NOTE | 2020-01-22 14:24 | NUR ---
PT SLEEPING SOUNDLY
--- NOTE | 2020-01-22 14:48 | NUR ---
PATIENT IN BED RESTING. CALL LIGHT IN REACH. NO FURTHER NEEDS AT THIS TIME.
--- NOTE | 2020-01-22 18:13 | NUR ---
PATIENT IN CHAIR WATCHING TV. CALL LIGHT IN REACH. NO FURTHER NEEDS AT THIS TIME.
--- NOTE | 2020-01-22 18:41 | NUR ---
PT USES CALL LIGHT APPROPRIATELY. SBA UP TO THE TOILET ABLE TO VOID WITHOUT DIFFICULTY. PT STATES SHE FEELS SO MUCH BETTER AFTER HAVING SLEPT MOST OF THE DAY. TO THE CHAIR TV REMOTE IN HAND, CALL LIGHT IN LAP, FRESH H20 AT CHAIR SIDE. NO C/O ABDOMINAL PAIN CLEAR LIQUID TRAY PROVIDED
--- NOTE | 2020-01-22 19:36 | NUR ---
REPORT RECEIVED FROM DAY SHIFT RN. PT LYING IN BED RESTING WITH EYES CLOSED, NAD. IVF INFUSING. WHITE BOARD UPDATED. CALL LIGHT IN REACH.
--- NOTE | 2020-01-22 21:30 | NUR ---
EVENING ASSESSMENT COMPLETE. PT REFUSED EVENING STOOL SOFTENER STATING SHE HAD A MED SOFT BM TODAY. IVF INFUSING. PT DENIES PAIN OR NAUEA. UP TO BR WITH SBA AND FWW. GAIT STEADY. BACK TO BED, NIKITA WELL. CPOX IN PLACE. Sp02 91-93% ON 2L/NC. VS AND I&O COMPLETE. NO FURTHER NEEDS. CALL LIGHT IN REACH.
--- NOTE | 2020-01-23 00:10 | NUR ---
PT RESTING IN BED WITH EYES CLOSED, NAD. SpO2 91% ON 2L/NC. HR 72. RR EVEN AND UNLABORED.
--- NOTE | 2020-01-23 02:01 | NUR ---
PT UP TO BR WITH SBA AND FWW. GAIT STEADY. BACK TO BED, NIKITA WELL. PRN ADMINISTERED FOR C/O HEADACHE. NO FURTHER NEEDS. CALL LIGHT IN REACH.
--- NOTE | 2020-01-23 03:54 | NUR ---
ANSWERED CALL LIGHT. 1 PA TO THE BATHROOM USING WALKER. PATIENT IS BACK IN BED. PRIMARY RN WAS WITH PATIENT.
--- NOTE | 2020-01-23 04:06 | NUR ---
PT UP TO BR WITH SBA AND FWW, GAIT STEADY. PT INCONTINENT OF SMALL AMOUNT OF URINE. STAFF ASSIST WITH JYOTHI CARE. CLEAN BRIEF PROVIDED. BACK TO BED, NIKITA WELL. IV IN RIGHT AC PAINFUL AND LEAKING. DC'D WNL. TIP IN TACT. CPOX IN PLACE. O2 1L/NC IN PLACE, SpO2 90-91%.
--- NOTE | 2020-01-23 04:58 | NUR ---
IV STARTED IN RIGHT FOREARM BY INVENTORY ASSISTANT AFTER 5 ATTEMPTS. PT NIKITA WELL. IVF INFUSING.
--- NOTE | 2020-01-23 05:39 | NUR ---
CALL LIGHT ANSWERED. PT UP TO TOILET TO VOID. RETURNED TO BED AND MORNING VITALS PERFORMED. NO FURTHER NEEDS AT THIS TIME
--- NOTE | 2020-01-23 06:20 | NUR ---
PT SLEPT WELL. ALERT AND ORIENTED. USES CALL LIGHT. SBA WITH FWW. INCONTINENT AT TIMES. CPOX. 1L/NC. PT DESAT WITH AMBULATION. NON PRODUCTIVE COUGH. VOID QS DARK URINE. MED SOFT BM 01/22/20. IVF. IV ABX.
--- NOTE | 2020-01-23 07:38 | NUR ---
RECEIVED REPORT FROM AUTUMN MOHR. PT BACK IN BED AFTER USING RESTROO THIS AM AND APPEARS TO BE RESTING COMFORTABLY WITH RESPIRTATIONS NOTED. PT ON 1L NC CURRENTLY.
--- NOTE | 2020-01-23 07:40 | NUR ---
PATIENT SLEEPING. WHITE BOARD UPDATED. CALL LIGHT WITHIN REACH. NO OTHER NEEDS AT THIS TIME
--- NOTE | 2020-01-23 08:45 | NUR ---
CALL LIGHT ANSWERED. PATIENT USING THE BATHROOM. PATIENT INCONTINENT OF URINE. ATTENDS CHANGED. PERICARE PERFORMED. PATIENT BACKS TO CHAIR. CALL LIGHT WITHIN REACH. NO OTHER NEEDS AT THIS TIME
--- NOTE | 2020-01-23 09:10 | NUR ---
IN PTS ROOM GIVING MORNING MEDS AND DOING MORNING ASSESSMENT. PT HAS 100.1 FEVER AND HAS GENERALIZED BODY ACHES, THIS RN PROVIDED PT WITH 500MG OF TYLENOL AT THIS TIME. PT IN GOOD SPIRITS OTHERWISE
--- NOTE | 2020-01-23 09:14 | NUR ---
PATIENT SITTING UP IN CHAIR. RN IN ROOM. VITAL SIGNS DONE BY RN. I&O DONE. CALL LIGHT WITHIN REACH. NO OTHER NEEDS AT THIS TIME
[2020-01-23] MEDS ORDERED: GLUCOPHAGE500 MG PO (11:00)
[2020-01-23] MEDS ORDERED: VITAMIN D350 MC3 PO (11:02)
[2020-01-23] MEDS ORDERED: TOPROL XL25 MG PO (11:03)
--- NOTE | 2020-01-23 13:50 | NUR ---
MED REC COMPLETE
--- NOTE | 2020-01-23 13:59 | NUR ---
PT MENTIONED THAT SHE WOULD LIKE THE REGROOVER TO COME FOR VISIT FOLLOWING [place] IN [place] TODAY. WILL INFORM FR VAZQUEZ
--- NOTE | 2020-01-23 14:02 | NUR ---
CALL LIGHT ANSWERED. PATIENT USING THE BATHROOM. PATIENT INCONTINENT OF URINE. PERICARE PERFORMED. ATTENDS CHANGED. PATIENT BACKS TO BED. VITAL SIGNS AND I&O DONE. CALL LIGHT WITHIN REACH. NO OTHER NEEDS AT THIS TIME
--- NOTE | 2020-01-23 17:08 | NUR ---
PATIENT RESTING IN BED. VITAL SIGNS AND I&O DONE. CALL LIGHT WITHIN REACH. NO OTHER NEEDS AT THIS TIME
--- NOTE | 2020-01-23 17:35 | NUR ---
THIS RN IN PTS ROOM TO GIVE PT HER THE EVENING MEDS. DISCUSSED WITH PT ABOUT HER NEW MEDICATION GLUCOPHAGE, PT STATED UNDERSTANDING OF MED BUT THIS RN ATICIPATES THAT PT WILL NEED FURTHER TEACHING ON THE TOPIC
--- NOTE | 2020-01-23 19:43 | NUR ---
REPORT RECEIVED FROM DAY SHIFT RN. PT LYING IN BED RESTING WITH EYES CLOSED, NAD. CPOX IN PLACE. WHITE BOARD UPDATED. CALL LIGHT IN REACH.
--- NOTE | 2020-01-23 19:55 | NUR ---
pt taken to restroom, fresh water given, VS and I&Os complete. Room straightened up, pt did not request anything further at this time.
--- NOTE | 2020-01-23 20:20 | NUR ---
EVENING ASSESSMENT COMPLETE. PT REFUSED SCHEDULED STOOL SOFTENER SHE HAD LARGE LOOSE STOOL EARLIER THIS DAY. DENIES PAIN OR NAUSEA. NO SOB OR RESPIRATORY DISTRESS NOTED. CPOX IN PLACE. SpO2 94% ON 2L/NC. HR 70'S. NO FURTHER NEEDS AT THIS TIME. CALL LIGHT IN REACH.
--- NOTE | 2020-01-23 23:33 | NUR ---
PT RESTING IN BED WITH EYES CLOSED, NAD. Sp02 94% N 2L/NC. HR 70'S.
--- NOTE | 2020-01-24 00:50 | NUR ---
ANSWERED CALL LIGHT. 1 PA TO THE BATHROOM USING WALKER. CHANGED ATTENDS AND GOWN. CHANGED DRAW SHEET. PATIENT IS BACK IN BED. NO OTHER NEEDS AT IS TIME. PRIMARY RN WAS IN THE ROOM.
--- NOTE | 2020-01-24 02:20 | NUR ---
PATIENT CALLED TO USE THE BATHROOM. 1 PA/SBA. PATIENT IS BACK IN BED. NO OTHER NEEDS AT THIS TIME.
--- NOTE | 2020-01-24 03:53 | NUR ---
CALL LIGHT ANSWERED. PT UP TO BR WITH SBA AND FWW. GAIT STEADY. BACK TO BED, NIKIAT WELL. O2 2L/NC AND CPOX IN PLACE. INCREASED RESPIRATIONS AND COUGH WITH ACTIVITY. PRN ADMINISTERED FOR C/O HEADACHE.
--- NOTE | 2020-01-24 05:40 | NUR ---
pt used call light to ask to use the restroom. VS and I&Os complete, Fresh water given.
--- NOTE | 2020-01-24 05:52 | NUR ---
PT SLEPT WELL. ALERT AND ORIENTED. USES CALL LIGHT APPROPRIATELY. O2 2L/NC SATS 91-94%. INCREASED SOB AND DESAT WITH AMBULATION. LOOSE COUGH WITH SCANT AMOUNT CLEAR SPUTUM. NEBULIZER TX APPEAR TO BE LOOSENING SECRETIONS. SBA WITH FWW. VOID QS. BM THIS SHIFT. SL. IV ABX.
--- NOTE | 2020-01-24 07:02 | NUR ---
pt used call light to ask for assistance to restroom, and I offered to braid her hair. she voided 250. Nothing further needed at this time.
--- NOTE | 2020-01-24 07:10 | NUR ---
RECEIVED REPORT FROM AUTUMN MOHR. PT APPEARS TO BE RESTING COMFORTABLY IN BED WITH RESPIRATIONS NOTED AT THIS TIME.
--- NOTE | 2020-01-24 07:45 | NUR ---
this rn in room to check with pt tosee if she needs to use the restroom prior to getting a neb treatment. pt stated that she did not need anything or need to use the restroom at this time.
--- NOTE | 2020-01-24 07:45 | NUR ---
PATIENT ASLEEP IN BED. CALL LIGHT WITHIN REACH.
--- NOTE | 2020-01-24 08:15 | NUR ---
this rn in room to transfer pt to the restroom. this rn in proper ppe after pt received an airsolized neb treatment
--- NOTE | 2020-01-24 09:30 | NUR ---
THIS RN IN PTS ROOM TO GIVE PT HER MORNING MEDS AND DO MORNING ASSESSMENT. PT IN GOOD SPIRITS TODAY AND HAS NO COMPLIANTS AT THIS TIME. PT UP TO CHAIR.
--- NOTE | 2020-01-24 09:35 | NUR ---
VITALS DONE BY NURSE. I&O'S DOCUMENTED. CALL LIGHT WITHIN REACH.
--- NOTE | 2020-01-24 10:38 | NUR ---
ASSISTED PATIENT WITH A SHOWER, LINEN CHANGE. AM CARE DONE. NO FURTHER NEEDS AT THIS TIME. CALL LIGHT WITHIN REACH.
--- NOTE | 2020-01-24 11:00 | NUR ---
Assessment for CM completed. Pt lives at home with a ramp. She has a walker and a shower chair. She states her health has been declining for >1 year and her daughter moved home to live with her. She also has a state paid cg, Shu who assists her 4 -5 hours per day. Pt states she was on home 02 but did not need so she sent it back. Dr. Engladn updated and 02 qualifier ordered. Pt has just showered and states she tolerated well. She denies needs to go home as she has the cg and her daughter who will assist her.
[2020-01-24] MEDS ORDERED: CEPHALEXIN500 MG PO (11:06)
[2020-01-24] MEDS ORDERED: PROBIOTIC1 EAC2 PO (11:08)
--- NOTE | 2020-01-24 11:47 | NUR ---
Notified by RN, pt does not need o2 per 02 qualifier. They will dc pt to home.
== END 2020-01-24 12:55 | disposition home or self-care (01) ==
LOC: ED 02:34 → MS 02:35
PROVIDERS: ADMIT Internal Medicine; ATTEND Internal Medicine
DX: N10 Acute pyelonephritis (principal); B96.20 Unspecified Escherichia coli [E. coli] as the cause of diseases classified elsewhere; K59.00 Constipation, unspecified; I50.22 Chronic systolic (congestive) heart failure; I25.10 Atherosclerotic heart disease of native coronary artery without angina pectoris; J44.9 Chronic obstructive pulmonary disease, unspecified; E78.5 Hyperlipidemia, unspecified; E11.9 Type 2 diabetes mellitus without complications; F39 Unspecified mood [affective] disorder; F17.200 Nicotine dependence, unspecified, uncomplicated; Z20.828 Contact with and (suspected) exposure to other viral communicable diseases
CPT/HCPCS: 36415; 74176; 80048; 80053; 81001; 83690; 85025; 87077; 87088; 87186; 94640; 94761; 94762; 96361; 96366; 96372; 96374; 96375; 96376; 99285-25; 99406; C9803; G0378; J0696; J1650; J1885; J2405; J3480; J7030; J7120; J7121

== ENCOUNTER 2020-01-27 10:54 | Emergency (ER) | payer MEDICARE, OTHER ==
[~2020-01-27] VITALS: Ht 160 cm; Wt 92.6 kg
[~2020-01-27 10:54] MED LIST changes: +CALCIUM + VITA1 EACH PO; +CEPHALEXIN500 MG PO; +ESCITALOPRAM OX20 MG PO; +FLUTICASONE-SA1 EAC5 INH; +GLUCOPHAGE500 MG PO; +LISINOPRIL5 MG PO; +NITROSTAT0.4 MG SL; +PLAVIX75 MG PO; +PROBIOTIC1 EAC2 PO; +VITAMIN B-12500 MCG PO; +VITAMIN D350 MC3 PO
--- OUTSIDE RECORDS SUMMARY | 2020-01-27 10:58 | XMS ---
PreManage Notification: JUNIOR HUMPHREYS Security Air Drier Events No recent Security Events currently on file CRITERIA MET - [facility] - 2 Visits in 30 Days CARE PROVIDERS Jacqueline Kenny Professor Of Literacy/Compliance Administrator 03/17/2017-Current PHONE: [phone] Name Unknown Clinic/Center 05/31/2019-Current PHONE: [phone] Shaheed has no Care Guidelines for this patient. Care History Medical/Surgical 02/13/2019 [facility] PATIENT- [facility] ELIGIBLE PLEASE REFER PATIENT TO [facility] FOR NON EMERGENT MEDICAL NEEDS. [facility] CAN SEE PATIENTS SAME DAY FOR APTS IF PATIENT CALLS FIRST THING IN THE MORNING. E.D. VISIT COUNT (12 MO.) [address] [facility] TOTAL 7 NOTE: Visits indicate total known visits. ED/UCC VISIT TRACKING (12 MO.) 01/27/2020 10:55 [facility] [place] TYPE: Emergency COMPLAINT: - SOB 01/22/2020 02:34 [facility] [place] TYPE: Emergency COMPLAINT: - MULTIPLE COMPLAINTS 10/07/2019 21:40 [facility] [place] TYPE: Emergency COMPLAINT: - VOMITING DIAGNOSES: - Nicotine dependence, unspecified, uncomplicated - Other care home (current) drug therapy - Upper abdominal pain, unspecified - Upper abdominal pain, unspecified - Chronic obstructive pulmonary disease, unspecified 05/30/2019 22:17 [facility] [place] TYPE: Emergency COMPLAINT: - SOB DIAGNOSES: - Dependence on supplemental oxygen - Personal history of nicotine dependence - intermediate designer (current) use of aspirin - Chronic obstructive pulmonary disease with (acute) exacerbati - Shortness of breath - Other care home (current) drug therapy - intermediate designer (current) use of oral hypoglycemic drugs - Atherosclerotic heart disease of [place] coronary artery witho 05/09/2019 11:36 [facility] [place] TYPE: Emergency COMPLAINT: - HIP PAIN, NON INJ DIAGNOSES: - Other petroleum terminal plant operator (current) drug therapy - Chronic obstructive pulmonary disease, unspecified - Pain in left hip - Strain of muscle, fascia and tendon of left hip, initial enco - Nicotine dependence, unspecified, uncomplicated - halfway (current) use of aspirin - intermediate designer (current) use of oral hypoglycemic drugs - intermediate designer (current) use of systemic steroids - Exposure to other specified factors, initial encounter 03/19/2019 12:13 [facility] [place] TYPE: Emergency COMPLAINT: - CHEST PAIN 02/11/2019 15:05 [facility] [place] TYPE: Emergency COMPLAINT: - SOB, COUGH INPATIENT VISIT TRACKING (12 MO.) 01/22/2020 02:35 [facility] [place] TYPE: Observation COMPLAINT: - UTI,VOMITING DIAGNOSES: - Chronic obstructive pulmonary disease, unspecified - Unspecified Escherichia coli [E. coli] as the cause of diseas - Constipation, unspecified - Type 2 diabetes mellitus without complications - Nicotine dependence, unspecified, uncomplicated - Contact with and (suspected) exposure to other viral communic - Unspecified abdominal pain - Hyperlipidemia, unspecified - Acute pyelonephritis - Unspecified mood [affective] disorder - Atherosclerotic heart disease of [place] coronary artery witho - Chronic systolic (congestive) heart failure 03/19/2019 12:14 [facility] [place] TYPE: Observation COMPLAINT: - ORTHOSTATIC HYPOTENSION DIAGNOSES: - halfway (current) use of aspirin - Chronic respiratory failure with hypoxia - Type 2 diabetes mellitus without complications - Chest pain, unspecified - Atherosclerotic heart disease of [place] coronary artery witho - Presence of coronary angioplasty implant and graft - Hypertensive heart disease with heart failure - Nicotine dependence, cigarettes, uncomplicated - Presence of automatic (implantable) cardiac defibrillator - intermediate designer (current) use of inhaled steroids - Do not resuscitate - Chronic obstructive pulmonary disease, unspecified - Presence of aortocoronary bypass graft - halfway (current) use of systemic steroids - Chronic systolic (congestive) heart failure - Orthostatic hypotension - Unspecified mood [affective] disorder - Other care home (current) drug therapy 02/11/2019 18:49 [facility] [place] TYPE: Medical Surgical COMPLAINT: - COPD EXACERBATION DIAGNOSES: - Do not resuscitate - Nicotine dependence, cigarettes, uncomplicated - Chronic systolic (congestive) heart failure - Chronic obstructive pulmonary disease with acute lower respir - Constipation, unspecified - Other petroleum terminal plant operator (current) drug therapy - Encounter for immunization - Hyperuricemia without signs of inflammatory arthritis and top - Do not resuscitate - Presence of aortocoronary bypass graft - Type 2 diabetes mellitus without complications - Presence of aortocoronary bypass graft - Hypertensive heart disease with heart failure - Acute and chronic respiratory failure with hypoxia - Old myocardial infarction - Type 2 diabetes mellitus without complications - Major depressive disorder, single episode, unspecified - Hyperuricemia without signs of inflammatory arthritis and top - Atherosclerotic heart disease of [place] coronary artery witho - Chronic obstructive pulmonary disease with acute lower respir - Chronic obstructive pulmonary disease with (acute) exacerbati - Pneumonia, unspecified organism - Chronic obstructive pulmonary disease with (acute) exacerbati - Constipation, unspecified - halfway (current) use of aspirin - halfway (current) use of aspirin - Pneumonia, unspecified organism - Chronic systolic (congestive) heart failure - Atherosclerotic heart disease of [place] coronary artery witho - Hypertensive heart disease with heart failure - Encounter for immunization - Other care home (current) drug therapy - Nicotine dependence, cigarettes, uncomplicated - Major depressive disorder, single episode, unspecified - Old myocardial infarction [email or web address]
--- NOTE | 2020-01-28 16:30 | EKG ---
[facility] [address] [place] [address] Signed Sinus rhythm with occasional premature ventricular complexes Incomplete right bundle branch block Inferior infarct (cited on or before 26-DEC-2017) Cannot rule out Anterior infarct , age undetermined Prolonged QT Abnormal ECG When compared with ECG of 30-MAY-2019 22:28, premature ventricular complexes are now present Minimal criteria for Anterior infarct are now present Serial changes of Inferior infarct present Confirmed by TA MONSIVAIS DO ([id number]) on 01/28/2020 4:30:03 PM Electronically Signed By: TA MONSIVAIS DO 01/28/20 1630 PATIENT NAME: JUNIOR HUMPHREYS Electrocardiogram DATE OF : 36 PHYSICIAN: TA MONSIVAIS DO REPORT #: [id number] REPORT IS CONFIDENTIAL AND NOT TO BE RELEASED WITHOUT AUTHORIZATION
== END 2020-01-27 17:35 | disposition home or self-care (01) ==
LOC: ED 10:54
DX: E87.70 Fluid overload, unspecified (principal); J44.9 Chronic obstructive pulmonary disease, unspecified; R73.03 Prediabetes; E78.00 Pure hypercholesterolemia, unspecified; F17.200 Nicotine dependence, unspecified, uncomplicated; Z79.899 Other long term (current) drug therapy; Z79.02 Long term (current) use of antithrombotics/antiplatelets; Z79.84 Long term (current) use of oral hypoglycemic drugs; Z95.1 Presence of aortocoronary bypass graft; Z90.49 Acquired absence of other specified parts of digestive tract
CPT/HCPCS: 71045; 80053; 82803; 83880; 84484; 85025; 93005; 93010; 96374; 99285-25; J1940

== ENCOUNTER 2020-02-15 08:28 | Emergency (ER) | payer MEDICARE, OTHER ==
[~2020-02-15] VITALS: Ht 160 cm; Wt 92.5 kg
--- OUTSIDE RECORDS SUMMARY | 2020-02-15 08:32 | XMS ---
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 - 2 Visits in 30 Days CARE PROVIDERS Jacqueline Kenny Forest Fire Officer/Rehab Aid 03/17/2017-Current PHONE: [phone] Name Unknown Clinic/Center 05/31/2019-Current PHONE: [phone] Shaheed has no Care Guidelines for this patient. Care History Medical/Surgical 02/13/2019 [facility] PATIENT- [facility] ELIGIBLE PLEASE REFER PATIENT TO [facility] FOR NON EMERGENT MEDICAL NEEDS. [facility] CAN SEE PATIENTS SAME DAY FOR APTS IF PATIENT CALLS FIRST THING IN THE MORNING. E.D. VISIT COUNT (12 MO.) 7 [facility] TOTAL 7 NOTE: Visits indicate total known visits. ED/UCC VISIT TRACKING (12 MO.) 02/15/2020 08:29 [facility] TYPE: Emergency COMPLAINT: - ABD PAIN 01/27/2020 10:55 [facility] TYPE: Emergency COMPLAINT: - SOB DIAGNOSES: - Presence of aortocoronary bypass graft - Shortness of breath - intermediate project manager (current) use of oral hypoglycemic drugs - intermediate project manager (current) use of antithrombotics/antiplatelets - Acquired absence of other specified parts of digestive tract - Prediabetes - Fluid overload, unspecified - Nicotine dependence, unspecified, uncomplicated - Other alf (current) drug therapy - Pure hypercholesterolemia, unspecified - Chronic obstructive pulmonary disease, unspecified 01/22/2020 02:34 [facility] TYPE: Emergency COMPLAINT: - MULTIPLE COMPLAINTS 10/07/2019 21:40 [facility] TYPE: Emergency COMPLAINT: - VOMITING DIAGNOSES: - Nicotine dependence, unspecified, uncomplicated - 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 - Upper abdominal pain, unspecified - Upper abdominal pain, unspecified - Chronic obstructive pulmonary disease, unspecified 05/30/2019 22:17 [facility] TYPE: Emergency COMPLAINT: - SOB DIAGNOSES: - Dependence on supplemental oxygen - Personal history of nicotine dependence - residential (current) use of aspirin - Chronic obstructive pulmonary disease with (acute) exacerbati - Shortness of breath - Other alf (current) drug therapy - intermediate project manager (current) use of oral hypoglycemic drugs - Atherosclerotic heart disease of [place] coronary artery witho 05/09/2019 11:36 [facility] TYPE: Emergency COMPLAINT: - HIP PAIN, NON INJ DIAGNOSES: - 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 - Chronic obstructive pulmonary disease, unspecified - Pain in left hip - Strain of muscle, fascia and tendon of left hip, initial enco - Nicotine dependence, unspecified, uncomplicated - residential (current) use of aspirin - intermediate project manager (current) use of oral hypoglycemic drugs - residential (current) use of systemic steroids - Exposure to other specified factors, initial encounter 03/19/2019 12:13 [facility] TYPE: Emergency COMPLAINT: - CHEST PAIN INPATIENT VISIT TRACKING (12 MO.) 01/22/2020 02:35 [...] pyelonephritis - Unspecified mood [affective] disorder - Nicotine dependence, cigarettes, uncomplicated - Atherosclerotic heart disease of [place] coronary artery witho - Chronic systolic (congestive) heart failure 03/19/2019 12:14 [facility] TYPE: Observation COMPLAINT: - ORTHOSTATIC HYPOTENSION DIAGNOSES: - residential (current) use of aspirin - Chronic respiratory failure with hypoxia - Type 2 diabetes mellitus without complications - Chest pain, unspecified - Atherosclerotic heart disease of [place] coronary artery witho - Presence of coronary angioplasty implant and graft - Hypertensive heart disease with heart failure - Nicotine dependence, cigarettes, uncomplicated - Presence of automatic (implantable) cardiac defibrillator - intermediate project manager (current) use of inhaled steroids - Do not resuscitate - Chronic obstructive pulmonary disease, unspecified - Presence of aortocoronary bypass graft - residential (current) use of systemic steroids - Chronic systolic (congestive) heart failure - Orthostatic hypotension - Unspecified mood [affective] disorder - Other alf (current) drug therapy [email or web address]
--- NOTE | 2020-02-16 13:58 | EKG ---
[facility] [address] [facility] [place] [address] Signed Normal sinus rhythm Left axis deviation Nonspecific intraventricular block Cannot rule out Septal infarct (cited on or before 30-MAY-2019) Lateral infarct (cited on or before 30-MAY-2019) Inferior infarct (cited on or before 26-DEC-2017) Abnormal ECG When compared with ECG of 27-JAN-2020 11:04, premature ventricular complexes are no longer present Questionable change in initial forces of Anterior leads Non-specific change in ST segment in Lateral leads Confirmed by TA MONSIVAIS DO ([id number]) on 02/16/2020 1:58:15 PM Electronically Signed By: TA MONSIVAIS DO 02/16/20 1358 PATIENT NAME: JUNIOR HUMPHREYS JARRET Electrocardiogram DATE OF : 36 PHYSICIAN: TA MONSIVAIS DO REPORT #: [id number] REPORT IS CONFIDENTIAL AND NOT TO BE RELEASED WITHOUT AUTHORIZATION
== END 2020-02-15 13:25 | disposition home or self-care (01) ==
LOC: ED 08:28
DX: H83.03 Labyrinthitis, bilateral (principal); K21.9 Gastro-esophageal reflux disease without esophagitis; K59.00 Constipation, unspecified; J44.9 Chronic obstructive pulmonary disease, unspecified; F17.200 Nicotine dependence, unspecified, uncomplicated; Z79.899 Other long term (current) drug therapy; Z79.82 Long term (current) use of aspirin
CPT/HCPCS: 51701; 70450; 71045; 74018; 80053; 81001; 83690; 83735; 83880; 84484; 85025; 93005; 93010; 99284-25; J1885

== ENCOUNTER 2020-08-01 12:13 | Emergency (ER) | payer MEDICARE, OTHER ==
[~2020-08-01] VITALS: Ht 160 cm; Wt 85.7 kg
[~2020-08-01 12:13] MED LIST changes: +MACROBID 100 M100 MG PO; +REGLAN10 MG PO
--- OUTSIDE RECORDS SUMMARY | 2020-08-01 12:16 | XMS ---
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 PHONE: [phone] Shaheed has no Care Guidelines for this patient. Care History Medical/Surgical 02/13/2019 [facility] PATIENT- [facility] ELIGIBLE PLEASE REFER PATIENT TO [facility] FOR NON EMERGENT MEDICAL NEEDS. [facility] CAN SEE PATIENTS SAME DAY FOR APTS IF PATIENT CALLS FIRST THING IN THE MORNING. E.D. VISIT COUNT (12 MO.) 7 [facility] TOTAL 7 NOTE: Visits indicate total known visits. ED/UCC VISIT TRACKING (12 MO.) 08/01/2020 12:14 [facility] [place] TYPE: Emergency COMPLAINT: - FALL 07/26/2020 19:33 [facility] TYPE: Emergency COMPLAINT: - ABD PAIN DIAGNOSES: - Nausea with vomiting, unspecified - Epigastric pain - Upper abdominal pain, unspecified - Nicotine dependence, unspecified, uncomplicated 07/20/2020 19:21 [facility] TYPE: Emergency COMPLAINT: - ADOM PAIN DIAGNOSES: - long term (current) use of oral hypoglycemic drugs - Upper abdominal pain, unspecified - Pure hypercholesterolemia, unspecified - Unspecified abdominal pain - Chronic obstructive pulmonary disease, unspecified - long term (current) use of aspirin - Upper abdominal pain, unspecified - Nicotine dependence, unspecified, uncomplicated - Other senior care (current) drug therapy 02/15/2020 08:29 [facility] TYPE: Emergency COMPLAINT: - ABD PAIN DIAGNOSES: - Nicotine dependence, unspecified, uncomplicated - Constipation, unspecified - Other senior care (current) drug therapy - residential (current) use of aspirin - Labyrinthitis, unspecified ear - Dizziness and giddiness - Chronic obstructive pulmonary disease, unspecified - Gastro-esophageal reflux disease without esophagitis - Epigastric pain - Labyrinthitis, bilateral 01/27/2020 10:55 [facility] TYPE: Emergency COMPLAINT: - SOB DIAGNOSES: - Presence of aortocoronary bypass graft - Shortness of breath - long term (current) use of oral hypoglycemic drugs - residential (current) use of antithrombotics/antiplatelets - Acquired absence of other specified parts of digestive tract - Prediabetes - Fluid overload, unspecified - Nicotine dependence, unspecified, uncomplicated - Other senior care (current) drug therapy - Pure hypercholesterolemia, unspecified - Chronic obstructive pulmonary disease, unspecified 01/22/2020 02:34 [facility] TYPE: Emergency COMPLAINT: - MULTIPLE COMPLAINTS 10/07/2019 21:40 [facility] TYPE: Emergency COMPLAINT: - VOMITING DIAGNOSES: - Nicotine dependence, unspecified, uncomplicated - 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 [place] TYPE: Observation COMPLAINT: - UTI,VOMITING DIAGNOSES: - Chronic obstructive pulmonary disease, unspecified - Unspecified Escherichia coli [E. coli] as the cause of diseases classified elsewhere - Constipation, unspecified - Type 2 diabetes mellitus without complications - Nicotine dependence, unspecified, uncomplicated - Contact with and (suspected) exposure to other viral communicable diseases - Unspecified abdominal pain - Hyperlipidemia, unspecified - Acute pyelonephritis - Unspecified mood [affective] disorder - Nicotine dependence, cigarettes, uncomplicated - Atherosclerotic heart disease of [place] coronary artery without angina pectoris - Chronic systolic (congestive) heart failure [email or web address]
[2020-08-01] MEDS ORDERED: HYDROCODON-ACE1 EA10 PO (15:55)
== END 2020-08-01 16:39 | disposition home or self-care (01) ==
LOC: ED 12:13
DX: G89.29 Other chronic pain (principal); M25.551 Pain in right hip; J44.9 Chronic obstructive pulmonary disease, unspecified; R73.03 Prediabetes; E78.00 Pure hypercholesterolemia, unspecified; F17.200 Nicotine dependence, unspecified, uncomplicated; Z79.899 Other long term (current) drug therapy; Z79.82 Long term (current) use of aspirin
CPT/HCPCS: 73502; 96374; 96375; 99283-25; J1885; J2405

== ENCOUNTER 2021-04-19 16:47 | Emergency (ER) | payer MEDICARE, OTHER ==
[~2021-04-19] VITALS: Ht 160 cm; Wt 85.7 kg
[~2021-04-19 16:47] MED LIST changes: +HYDROCODON-ACE1 EA10 PO
--- NOTE | 2021-04-20 17:16 | EKG ---
[facility] [address] [place] [address] Signed Sinus rhythm Right bundle branch block Left anterior fascicular block Bifascicular block Inferior infarct , age undetermined Abnormal ECG When compared with ECG of 20-JUL-2020 20:14, Current undetermined rhythm precludes rhythm comparison, needs review Confirmed by MATTHIAS HOOD MD ([id number]) on 04/20/2021 5:16:13 PM Electronically Signed By: MATTHIAS HOOD MD 04/20/21 1716 PATIENT NAME: JUNIOR HUMPHREYS Electrocardiogram DATE OF : 36 PHYSICIAN: MATTHIAS HOOD MD REPORT #: [id number] REPORT IS CONFIDENTIAL AND NOT TO BE RELEASED WITHOUT AUTHORIZATION
== END 2021-04-19 20:48 | disposition home or self-care (01) ==
LOC: ED 16:47
DX: I95.9 Hypotension, unspecified (principal); R19.7 Diarrhea, unspecified; J44.9 Chronic obstructive pulmonary disease, unspecified; E78.00 Pure hypercholesterolemia, unspecified; F17.200 Nicotine dependence, unspecified, uncomplicated; Z79.899 Other long term (current) drug therapy; Z79.82 Long term (current) use of aspirin; Z79.84 Long term (current) use of oral hypoglycemic drugs
CPT/HCPCS: 74177; 80053; 81001; 83690; 83735; 84484; 85025; 93005; 93010; 96374; 99285-25; J2405; J7030; Q9967

== ENCOUNTER 2021-08-01 12:28 | Emergency (ER) | payer MEDICARE, OTHER ==
[~2021-08-01] VITALS: Ht 160 cm; Wt 85.7 kg
== END 2021-08-01 19:54 | disposition home or self-care (01) ==
LOC: ED 12:28
DX: S69.92XA Unspecified injury of left wrist, hand and finger(s), initial encounter (principal); M25.562 Pain in left knee; W10.8XXA Fall (on) (from) other stairs and steps, initial encounter; J44.9 Chronic obstructive pulmonary disease, unspecified; E78.00 Pure hypercholesterolemia, unspecified; F17.200 Nicotine dependence, unspecified, uncomplicated; Z79.899 Other long term (current) drug therapy; Z79.82 Long term (current) use of aspirin; Z79.84 Long term (current) use of oral hypoglycemic drugs
CPT/HCPCS: 29125; 36415; 70450; 72125; 73030; 73110; 73130; 73560; 73700; 80048; 85025; 99284-25; A9270; J3010

== ENCOUNTER 2021-10-10 14:19 | Inpatient (IN) | payer MEDICARE, OTHER ==
[~2021-10-10] VITALS: Ht 160 cm; Wt 79.1 kg
[2021-10-10] MEDS ORDERED: LISINOPRIL10 MG PO (15:04)
[2021-10-10] MEDS ORDERED: ELIQUIS5 MG PO (15:04)
[2021-10-10] MEDS ORDERED: METFORMIN HCL500 MG PO (15:04)
--- NOTE | 2021-10-10 19:55 | NUR ---
BED ALARM SOUNDED PT LAYING IN BED MOVING A LITTLE. PT DENIES NEEDS AT THIS TIME. NC WAS ON HER CHIN, REPLACED NC, CALL LIGHT IS CLOSE AND BED ALARM IS ON.
--- NOTE | 2021-10-10 20:47 | NUR ---
PT'S DAUGTHER LINNETTE CALLED FOR AN UPDATE. PT IS RESTING WITH EYES CLOSED AT THIS TIME, DEVIKA ELIZONDO THAT WE TELL HER WE CALLED. SHE DENIES FURTHER QUESTIONS OR CONCERNS.
--- NOTE | 2021-10-10 21:10 | NUR ---
PT CALLED FOR ASSISTANCE TO THE RESTROOM. 1PA FWW, URINE SAMPLE OBTAINED. PT UNABLE TO WAIT FOR THIS RN TO CLEAN PERIAREA FULLY BEFORE SAMPLE. SAMPLE SENT. PT IS NOW BACK IN BED AND DENIES FURTHER NEEDS. CALL LIGHT IS CLOSE AND BED ALARM IS ON.
--- NOTE | 2021-10-10 22:16 | NUR ---
pt drowsy, answers question, O2 2.5L NC, was weaned down to 2L, sats WNL. pt On room air, exp wheezing and coarse t/o, dry non productive cough noted. sl RFA patent. turns and reposisions self in bed, sob with exertion noted. Up to br and voided small amounts medium yellow urine. 1PA/FWW. sob on return. on fluid restriction, pt aware, explained to her, stated understanding. cooperative. uses call light . CBG 247, received 5 units ss insulin
--- NOTE | 2021-10-10 23:53 | NUR ---
AWAKES EASILY, SCHEDULED MEDS GIVEN, MEDICATED WITH COUGH SYRUP PER C/O COUGH. CALL LIGHT AT HANDS REACH. AWARE OF FLUID RESTRICTION, COOPERATIVE
--- NOTE | 2021-10-11 01:49 | NUR ---
RESTING, O2 2LNC, NO DISTRESS, TURNS AND REPOSITIONS SELF. NO COUGH. CALL LIGHT AT HANDS REACH
--- NOTE | 2021-10-11 02:45 | NUR ---
IN TO GET VITALS, NO FURTHER NEEDS AT THIS TIME
--- NOTE | 2021-10-11 03:45 | NUR ---
PT UP TO VOID, BACK TO BED, NO FURTHER NEEDS AT THIS TIME
--- NOTE | 2021-10-11 05:50 | NUR ---
pt has slept off and on this shift. up to br voiding qs urine, inc on attends. was originally at 2.5L NC on admit, weaned down to 1.5L tolerated well wtih spot checks of 95%. slight sob on return from br noted, lungs with exp wheexing, moist cough present, non productive. was medicated with Tessalon perles and robitussin earlier per cough. medicated with Tylenol per c/o front chest pain from coughing. uses call light, slight unseteady 1pa/fww, cooperative. has tolerated fluid restriction
--- NOTE | 2021-10-11 05:50 | NUR ---
IN TO GET VITALS, I&Os, PT UP TO THE TOILET, DAILY WT TAKEN, NO FURTHER NEEDS AT THIS TIME
--- NOTE | 2021-10-11 10:35 | NUR ---
Patient up to void. Assisted pt to chair, face and hair washed at this time. Patient remains on 0.5 oxygen per nc, respirations non labored. Patient denies sob, strong intermittent cough noted. Patient consumed 100% of her breakfast. No current needs. Call light within reach.
--- NOTE | 2021-10-11 13:09 | NUR ---
THIS RN 1PSBA WITH FWW PATIENT TO THE BATHROOM AND BACK TO BED. PATIENT VOIDED X1, BUT MISSED THE HAT. PATIENT BACK IN BED AND POSITIONED TO COMFORT. CALL LIGHT IN REACH AND PATIENT HAS NO OTHER CARE NEEDS AT THIS TIME.
--- NOTE | 2021-10-11 13:46 | NUR ---
REPORT RECIEVED FROM ONUR CANSECO. ALL QUESTIONS ANSWERED. PT RESTING IN BED WATCHING TV, DENIES NEEDS AT THIS TIME. CALL LIGHT WITHIN REACH.
--- NOTE | 2021-10-11 14:04 | NUR ---
PATIENT IN BED RESTING WITH EYES CLOSED. VITALS AND I&O'S CHARTED. PATIENT COMPLAINING OF A HEADACHE, RN NOTIFIED. CALL LIGHT IN REACH. NO FURTHER NEEDS AT THIS TIME.
--- NOTE | 2021-10-11 15:44 | NUR ---
PT C/O NASAL CONGESTION, PRN MEDICATION GIVEN, SEE MAR. PT DENIES FURTHER NEEDS AT THIS TIME. CALL LIGHT WITHIN REACH.
--- NOTE | 2021-10-11 18:05 | NUR ---
PT SITTING UP IN RECLINER, EATING DINNER. PROVIDED EDUCATION ON 60G CARB DIET, PT VERBALIZED UNDERSTANDING. DENIES FURTHER NEEDS AT THIS TIME. CALL LIGHT WITHIN REACH.
--- NOTE | 2021-10-11 19:15 | NUR ---
resting, in bed, room air, call liht at hands reach. Cont on droplet isolation
--- NOTE | 2021-10-11 21:15 | EKG ---
[facility] [address] [place] [address] Signed Sinus tachycardia Incomplete right bundle branch block Right ventricular hypertrophy with repolarization abnormality ST elevation, consider inferior injury or acute infarct ACUTE [place] / STEMI Abnormal ECG When compared with ECG of 19-APR-2021 17:14, Vent. rate has increased BY 55 BPM Incomplete right bundle branch block has replaced (RBBB and left anterior fascicular block) Criteria for Inferior infarct are no longer present Confirmed by SHIV OLTT MD ([id number]) on 10/11/2021 9:15:25 PM Electronically Signed By: SHIV LOTT MD 10/11/215 PATIENT NAME: JUNIOR HUMPHREYS Electrocardiogram DATE OF : 36 PHYSICIAN: SHIV LOTT MD REPORT #: [id number] REPORT IS CONFIDENTIAL AND NOT TO BE RELEASED WITHOUT AUTHORIZATION
--- NOTE | 2021-10-11 21:16 | EKG ---
[facility] [address] [place] [address] Signed Sinus tachycardia Left axis deviation Right bundle branch block Inferior infarct , age undetermined Cannot rule out Anterior infarct , age undetermined Abnormal ECG When compared with ECG of 10-OCT-2021 15:24, (Unconfirmed) Right bundle branch block has replaced Incomplete right bundle branch block Minimal criteria for Anterior infarct are now present Inferior infarct is now present Confirmed by SHIV LOTT MD ([id number]) on 10/11/2021 9:16:21 PM Electronically Signed By: SHIV LOTT MD 10/11/212115 PATIENT NAME: JUNIOR HUMPHREYS Electrocardiogram DATE OF : 36 PHYSICIAN: SHIV OLTT MD REPORT #: [id number] REPORT IS CONFIDENTIAL AND NOT TO BE RELEASED WITHOUT AUTHORIZATION
--- NOTE | 2021-10-11 21:52 | NUR ---
Pt on room air, exp wheezing present t/o, moist non productive hacky cough present. c/o h/a, medicatd with tylenol, tessalon perles and cough syrup. up to br, 1pa/fww, voided, on return increased resp rate and pulse noted, sob, spot chech O2 sats 93%, RR 30'sh, pulse 131 per monitor. after returning to bed improved and calmed down. denies CP. turns and repositions self in bed. tolerating fluid restriction. CBG 128, no coverage needed . RFA SL patgent. no edema, helpful, cooperative "I think I'm ready to go home, I feel so much pat" stated. will notify Dr Pereira of abnormal vitals after ambulating
--- NOTE | 2021-10-11 22:26 | NUR ---
ON ROOM AIR, TURNS AND REPOSITIONS SELF IN BED, BED ALARM ON ASPIRATION AND FALL PRECAUTIONS
--- NOTE | 2021-10-11 23:10 | NUR ---
pt up to the toilet, sba fww, O2/RR/HR as follows.. - 92% 23RR 103HR resting in bed, - 93% 25-30RR 102HR once returned from toilet, rn informed, pt has no further needs at this time, call light in reach
--- NOTE | 2021-10-12 01:39 | NUR ---
resting, no distress, eyes closed, turns and reposisions self in bed. call light and fluids at hands reach
--- NOTE | 2021-10-12 02:49 | NUR ---
continueson droplet isolation, on room air, resting, eyes closed, no distress, turns and repositions self in bed
--- NOTE | 2021-10-12 04:29 | NUR ---
pt forgetful, awakes easily, pt has been resting peacefully with her eyes closed and snoring softly when nurse did her rounds. Pt stated she has "been awake all night and not slept a wink", Up to br, no change in pulse, resp when up when returning from BR, see vitals flow sheet. On room air, lungs wheezing t/o, sob with exertion present. harsh moist non productive cough present, medicated with cough syrup and with tylenol per c/o front and back generalized pain from cough. 1PA/FWW, slightly unsteady, slow gait. Daily standing weight was 79.7KG, seems to have gained 3ounces.
--- NOTE | 2021-10-12 06:23 | NUR ---
Pt has slept mos of this shift, but staed that she has not. alert, forgetful, cooperative. On room air, lungs wheezes t/o, moist non productive cough present. sob with exertion on return from BR with increaesd RR and hear rate 1X, medicated with Tylenol per pain and cough syrup and tessalon perles and neb tx. tolerating fluid restriction. voiding QS, incontinent of urine, wears attedns. CBG 128, received no coverage. 1pa/fww. turns and repositions self in bed. Pt stated that she is going home today back to her home. uses call light. aspiration and fall precautions in place. Pt on droplet isolation
--- NOTE | 2021-10-12 07:28 | NUR ---
DR LOTT WAS NOTIFIED BY ISABEL MOHR ABOUT INCREAED RR AND PULSE AFTER GETTING UP DURING THE NOC SHIFT, NO NEW ORDERS
--- NOTE | 2021-10-12 07:37 | NUR ---
RECRamona. BEDSIDE REPORT FROM NIGHT RN, ASSUMED ALL CARE OF PT.
--- NOTE | 2021-10-12 11:10 | NUR ---
CALLED INTO ROOM BY PT. SHE WAS IN BED AND LAYING LOW AND BECAME SOB, WET COUGH BUT CANNOT EXPECTORATE. SHE IS RECEIVING MANY NEBULIZERS THROUGHOUT THE DAY, HAD PT. SIT UP ON EOB, RESTING ON TABLE WITH PILLOW. BREATHING BETTER NOW, 02 ADDED FOR A FEW MINUTES AT 2L NC.
--- NOTE | 2021-10-12 13:45 | NUR ---
RESTING IN BED, PT. BECOMES SOB AT TIMES, MOSTLY AFTER COUGHING SPELLS. GAVE GUAIFENESIN AND THIS DID SEEM TO HELP. SHE CAN COUGH PHLEGM UP BUT CANNOT SPIT IT OUT. HER COUGH DID SEEM TO QUIET AND SHE WAS ABLE TO REST A LITTLE. PLAN TO AMBULATE IN THE ROOM OR MYLES AFTER DINNER.
--- NOTE | 2021-10-12 14:47 | NUR ---
PATIENT SITTING IN CHAIR TALKING ON PHONE. VITALS AND I&O'S CHARTED. CALL LIGHT IN REACH. NO FURTHER NEEDS AT THIS TIME.
--- NOTE | 2021-10-12 17:42 | NUR ---
PATIENT IS ORIENTED TO SELF, PLACE AND TIME. SHE HAS A GOOD APPETITE AND IS ABIDING BY HER FLUID RESTRICTION. DENIES ANY PAIN BUT DOES GET SOB EASILY WHEN MOVING ABOUT IN THE ROOM. SHE IS ON ROOM AIR AND IS RECEIVING MULTIPLE INHALER TREATMENTS. HER COUGH DID IMPROVE AFTER RECEIVING GUAIFENESIN. SHE IS A DAILY WEIGHT. BG IS STABLE AT 103-118. SHE IS ON RESPIRATORY DROPLET PRECAUTIONS. SHE WAS TALKING WITH HER FAMILY MULTIPLE TIMES TODAY. SHE WILL DC HOME WHEN MEDICALLY STABLE.
--- NOTE | 2021-10-12 18:49 | NUR ---
PATIENT AMBULATED FROM ROOM APPROX. 20 FT WITH FWW, SBA AND BECAME SOB AND RESTED AT RAIL IN MYLES. CAUGHT HER BREATH AND WENT ANOTHER 20 FT, SOB AGAIN AND SLIGHTLY DIZZY, SHE FELT TOO WEAK AND SOB SO TOOK HER TO HER ROOM IN A WC. BACK TO CHAIR WITH FEET UP. CAUGHT HER BREATH BACK FAIRLY QUICKLY, GUAIFENESIN DID IMPROVE AND THIN OUT SECRETIONS FOR HER COUGH WHICH IS LESS.
--- NOTE | 2021-10-12 19:03 | NUR ---
PATIENT SITTING IN CHAIR WATCHING TV. VITALS CHARTED. CALL LIGHT IN REACH. NO FURTHER NEEDS AT THIS TIME.
--- NOTE | 2021-10-12 19:12 | NUR ---
PT. C/O HEADACHE, GAVE TYLENOL 500 MG PO FOR ANDREW, RESTING IN CHAIR.
--- NOTE | 2021-10-12 19:30 | NUR ---
SAW PATIENT GOT UP FROM CHAIR. THIS PUBLIC HE[facility] TOLD PATIENT TO GO BACK SIT ON THE CHAIR AND THIS [facility] NEEDS TO PUT ON PPE'S. 1 PA TO THE BATHROOM USING WALKER. PATIENT IS IN BED NOW. BED ALARM ON FOR SAFETY. DENIES FURTHER NEEDS AT THIS TIME.
--- NOTE | 2021-10-12 19:57 | NUR ---
BEDSIDE REPORT FROM [facility] COLD ROLL INSPECTOR, PT JUST BACK TO BED FROM ASSISTED TO BATHROOM BY KELSEY RAMAN PT TOLERATING ACTIVITY WELL NO SOB NOTED AT THIS TIME.
--- NOTE | 2021-10-12 20:56 | NUR ---
ROUNDING IN PT ROOM PT HAS COMPLAINT OF ANDREW AND COUGH, PRN'S ADMINISTERED FOR COUGH, AND SINUS PRESSURE. HS MEDS PASSED AND ASSESSMENT COMPLETE. PT VERY PLEASANT AND COOPERATIVE WITH ALL CARE. BED ALARM ON FOR PT SAFETY SHE WILL ATTEMPT TO EXIT BED WITHOUT CALLING INTERMITTENLY.
--- NOTE | 2021-10-12 21:12 | NUR ---
PT PRIMARY RN TALKED WITH PT ABOUT GRANDDAUGHTER DAISY VALLADARES, AND IS OK TO GIVE INFORMATION. GRANDDAUGHTER . PT HAD TOLD THIS GRANDDAUGHTER THAT "THE DOCTOR WAS GONNA SEND HER HOME", THIS CALLED WAS VERY CONCERNED DUE THE FLOODING ON [facility] AT [address], THEIR HOME IS ACCESSABLE VIA [employer]EL[address], AND POWER IS LIMITED PER CALLED. PT LIVES THERE. REASSURED CALLED THAT PT WOULD BE DISCHARGED SAFELY, BUT FOR FAMILY TO KEEP NURSES INFORMED OF ROADS, AND POWER.
--- NOTE | 2021-10-12 22:49 | NUR ---
BED ALARMING. PATIENT GOT UP TO THE EDGE OF THE BED. 1 PA TO THE BATHROOM AND BACK TO BED. BED ALARM ON FOR SAFETY. NO OTHER NEEDS AT THIS TIME.
--- NOTE | 2021-10-12 23:21 | NUR ---
answered call light. ice water 200ml given.
--- NOTE | 2021-10-12 23:32 | NUR ---
PT UP TO BATHROOM WITH SECURITY AMBASSADOR AT THIS TIME, SHE REQUESTS WATER, SHE IS WELL WITHIN HER FLUID RESTRICTION LIMITS 200ML WATER PROVIDED.
--- NOTE | 2021-10-13 04:35 | NUR ---
PATIENT CALLED TO USE THE BATHROOM. SBA USING WALKER. PATIENT IS BACK IN BED. NO OTHER CARE NEEDS AT THIS TIME. BED ALARM ON. RT JUST WENT IN TO THE ROOM.
--- NOTE | 2021-10-13 05:59 | NUR ---
PT HAS BEEN UP FREQUENTLY TO BATHROOM TO VOID. SHE REPORTED ANDREW EARLY IN SHIFT THAT RESOLVED, PT AND FAMILY ARE CONCERNED ABOUT DISCHARGE PLANNING HER HOME ACC[address] RO[address] IS CURRENTLY FLOODED AND HAS NO ELECTRICITY. NO OTHER NEW CONCERNS THIS SHIFT.
--- NOTE | 2021-10-13 07:34 | NUR ---
BEDSIDE REPORT RECD. FROM NIGHT RN, ASSUMED ALL CARE OF PT.
--- NOTE | 2021-10-13 09:00 | NUR ---
AMBULATED BESIDE PT IN HER ROOM, 02 SATS 87-91% AND HR 48-57, PATTERSON, TACHYPNIC, RESPIRATIONS LABORED, SAT IN CHAIR, 02 SATS AT 89% AFTER 1 MIN REST IN CHAIR, STILL SOB AND HR 109, AFTER 3 MIN REST IN CHAIR O2 SATS 91-94% HR 109, AFTER 7 MIN REST IN CHAIR 02 SATS 93% AND HR 100, LESS SOB. REPORTED TO DR. LOTT.
[2021-10-13] MEDS ORDERED: DICLOFENAC SOD100 G1 TOP (10:44)
--- NOTE | 2021-10-13 11:20 | NUR ---
Call light answered, assisted patient SBA to BR with FWW. Pt tolerates well and back to bed at this time. No further needs, call light in reach
--- NOTE | 2021-10-13 12:12 | NUR ---
PT. RESTING IN BED, GAVE DOSE OF LASIX ORDERED. SHE WILL CALL FOR SBA TO BR WHEN NEEDED. GOOD APPETITE, ADEQUATE LIQUIDS.
--- NOTE | 2021-10-13 13:13 | NUR ---
CALL FROM FAMILY THAT THEY WERE DENIED BEING ABLE TO VISIT PATIENT. CALL TO FRONT TO SEE WHY, SECURITY INDICATED THAT THEY WERE TOLD BY NURSING COLORED LIQUID PLASTIC APPLIER SEVERAL DAYS AGO THAT "PATIENT IS TOO TRANSMISSABLE." THIS NURSE LET FRONT STAFF/SECURITY KNOW THAT PATIENT WAS ALLOWED 2 VISITORS PER DAY, ALSO CALLED NURSING COLORED LIQUID PLASTIC APPLIER AND THEY AGREED THAT PATIENT SHOULD BE ABLE TO HAVE VISITORS. PATIENT INFORMED THAT SHE SHOULD HAVE BEEN ABLE TO HAVE VISITORS, APOLOGIZED FOR THE MISTAKE TO PATIENT.
--- NOTE | 2021-10-13 13:32 | NUR ---
PATIENT IN BED RESTING AT THIS TIME. VITALS AND I&O'S CHARTED. CALL LIGHT IN REACH. NO FURTHER NEEDS AT THIS TIME.
--- NOTE | 2021-10-13 14:45 | NUR ---
PT. OOB IN CHAIR MOST OF THE SHIFT. BREATHING TX Q 4 HR. DAILY WT. NO COMPLAINTS THIS SHIFT. AMBULATES WELL TO THE BR, SBA, STEADY TO FWW.
--- NOTE | 2021-10-13 15:05 | NUR ---
Medications reconciled using pharmacy records, RX bottles and patient daughter interview
--- NOTE | 2021-10-13 17:17 | NUR ---
PT. OOB IN CHAIR MOST OF THE DAY. SHE HAS A VISITOR CURRENTLY. SHE IS STEADY ON HER FEET WITH FWW TODAY AND WILL CALL FOR NEEDS. LASIX STARTED TODAY AND SHE HAS MORE FREQUENT URINATION. GOOD APPETITE, ADEQUATE LIQUIDS ON 1500 CC FR. RECEIVING NEBS Q 4 HR WA. LBM 10/12. BG GOOD CONTROL 106-112. TAMIFLU CONTINUES. COUGH HAS IMPROVED TODAY, SHE WAS ABLE TO SPIT UP MOD YELLOW SPUTUM THIS MORNING. ALL VSS. DAILY WTS. A & O X 3-4. POSSIBLE DC TOMORROW HOME WITH FAMILY.
--- NOTE | 2021-10-13 18:35 | NUR ---
PT. REMAINS ON RESPIRATORY DROPLET PRECAUTIONS. ADMITTED 10/10 INFLUENZA A+. TAMIFLU CONTINUES, WITH RT NEB TX Q 4 HR, IPATROPIUM, PULMICORT AND XOPENEX. STARTED LASIX DAILY WITH MORE FREQUENTS TRIPS TO BR. DAILY WTS. LBM 10/12. BG STABLE 106-114. GOOD APPETITE, ABIDING BY 1500 CC FR. R HAND IV SL. ORIENTED AND COOPERATIVE WITH ALL CARE. LESS COUGH TODAY, WAS ABLE TO COUGH UP MODERATE YELLOW SPUTUM THIS MORNING. POSSIBLE DC TOMORROW HOME TO FAMILY.
--- NOTE | 2021-10-13 19:10 | NUR ---
BEDSIDE REPORT FROM CRISTOFER EDITOR NEWSPAPER, PT IS ALERT AND ORIENTED SITTING UP IN BED, SHE VERBALIZED NO NEEDS AT THIS TIME. PT LAUGHING AND SMILING WITH STAFF
--- NOTE | 2021-10-13 21:19 | NUR ---
V/S AND I&O'S TAKEN AND CHARTED. BLOOD SUGAR CHECK DONE. PATIENT ASKED FOR SNACK STATED "I MUST BE FEELING BETTER BECAUSE I AM ALWAYS HUNGRY". SUGAR FREE CHOCOLATE PUDDING AND 2 LIZETH CRACKERS PROVIDED. PRIMARY RN NOTIFIED.
--- NOTE | 2021-10-13 22:06 | NUR ---
pt up to bathroom voided 200ml clear yellow urine. pt tolerated activity well, no sob or increase in work for breathing. she is pleasant, laughs and jokes.
--- NOTE | 2021-10-13 23:05 | NUR ---
sba to the bathroom using walker and back to bed. no other needs at this time.
--- NOTE | 2021-10-13 23:45 | NUR ---
PATIENT CALLED. SBA USING WALKER TO THE BATHROOM AND BACK SITTING AT THE EDGE OF THE BED. CALL LIGHT WITHIN REACH.
--- NOTE | 2021-10-14 01:30 | NUR ---
PT BACK TO BED AFTER AMBULATING TO BATHROOM WITH KELSEY RAMAN. NO DISTRESS, NO SOB, CONT TO HAVE COUGH INCREASE WITH ACTIVITY
--- NOTE | 2021-10-14 01:52 | NUR ---
sba UP TO THE BATHROOM. PATIENT VOIDED 100ML. PATIENT IS BACK IN BED. LESS THAN HALF A CUP OF ICE CHIPS PROVIDED. NO OTHER NEEDS AT THIS TIME. CALL LIGHT WITHIN REACH.
--- NOTE | 2021-10-14 04:34 | NUR ---
PT HAS SLEPT INTERMITTENLY, SHE HAS BEEN UP TO BATHROOM FREQUENTLY VOIDED QUANTITY SUFFICIENT. SHE HAS BEEN PLEASANT, LAUGHING AND JOKING WITH STAFF. SHE DID HAVE ONE EPISODE AFTER SLEEPING THAT SHE FELT SHORT OF BREATH, SHE SAT AT SIDE OF BED AND THEN THIS RN ASSIST BACK TO BED AND ELEVATED HEAD OF BED MORE, SHE REPORTED THIS WAS HELPFUL. SHE CONT TO HAVE COUGH, WORSE AFTER ACTIVITY/AMBULATION. SHE REMAINS ON ROOM AIR, S/L. 1P ASSIST WITH FWW FOR AMBULATION, SHE WILL SUDE CALL LIGHT INTERMITTENLY, WITH SETTING OFF BED ALARM OTHER TIMES. SHE VERBALIZED EXCITEMENT AT START OF SHIFT ABOUT POSSIBLY DISCHARGING TODAY.
--- NOTE | 2021-10-14 04:40 | NUR ---
BOWEL REGIME ORDER PER NIO PROTOCOL, PT HAS NOT HAD BM WHILE INPT.
--- NOTE | 2021-10-14 04:50 | NUR ---
PATIENT CALLED TO USE THE BATHROOM. SBA USING WALKER. PATIENT IS BACK IN BED. V/S, I&O'S AND WEIGHT TAKEN AND RECORDED. NO FURTHER NEEDS AT THIS TIME. CALL LIGHT WITHIN REACH.
--- NOTE | 2021-10-14 06:29 | NUR ---
PT CALLED TO REQUEST ASSISTANCE TO USE BATHROOM STUDENT RN INTO ASSIST.
--- NOTE | 2021-10-14 07:31 | NUR ---
REPORT RECEIVED FROM ONUR ROCHA. PT RESTING ON LEFT SIDE. PT AWAKENS TO MOVEMENT IN THE ROOM. PT DENIES REQUESTS OR COMPLAINTS AT THIS TIME. BED RAILS UP. CALL LIGHT WITHIN REACH. BED ALARM ON.
--- NOTE | 2021-10-14 07:54 | NUR ---
MORNING ASSESSMENT AND MEDICATION DUE. PT RESTING IN BED, AWAKE AND ALERT. PT REPORTS GENERALIZED "ACHES" AT 5/10 AT THIS TIME, TYLENOL GIVEN. IV ASSESSED, WNL, FLUSHED AND SALINE LOCKED, ALCOHOL CAP APPLIED. PT ALERT AND ORIENTED TO ALL. PT FORGETFUL AT TIMES, FOLLOWS DIRECTIONS WELL. STAND BY ASSIST UP TO RESTROOM WITH FWW. PT VOIDS WITHOUT ISSUE. PERFORMS SELF JYOTHI CARE. DEPENDS CHANGED. STAND BY ASSIST WITH FWW UP TO CHAIR. LUNG SOUNDS COURSE THROUGHOUT ALL LOBES, EXPIRATORY WHEEZE NOTED IN UPPER LOBES. NO SPUTUM SEEN AT THIS TIME, PT REPORTS COUGHING UP "VERY LITTLE" YELLOW SPUTUM. HEART TONES MILDLY IRREGULAR. PT DENIES FEELINGS OF CONSTIPATION, AGREES TO TAKE SENNA BUT NOT MIRALAX. BOWEL TONES ACTIVE. PT REMAINS UP TO CHAIR. CALL LIGHT WITHIN REACH. NO ADDITIONAL NEEDS AT THIS TIME.
--- NOTE | 2021-10-14 10:11 | NUR ---
THIS RN TO ROOM TO CHECK ON PT. DR. LOTT TO ROOM TO ROUND ON PT. PT ENCOARAGED TO AMBULATE TO ASSESS TOLERANCE OF ACTIVITY PRIOR TO DISCHARGE. PT UP TO AMBULATE X1 LAP IN MYLES WITH 4 REST BREAKS. OXGYEN SATURATION MAINTAINS FROM 93-97% ON ROOM AIR WITH ACTIVITY. HEART RATE IN THE 80'S. PT SHORT OF BREATH WITH RR ~28-32 WHEN AMBULATING. PT RECOVERS AFTER 30 SECOND REST. PT BACK TO ROOM AND REMAINS UP TO CHAIR. PT REQUSTS COFFEE, 100ML PROVIDED FOR PT REMAIN WITHIN FLUIS RESTRICITON. PT DENIES ADDITIONAL REQUESTS OR COMPLAINTS. CALL LIGHT WITHIN REACH. UPDATED ON PTS ACTIVITY TOLERANCE.
[2021-10-14] MEDS ORDERED: OSELTAMIVIR PHO30 MG PO (10:23)
--- NOTE | 2021-10-14 10:23 | NUR ---
PATIENT SITTING IN CHAIR WATCHING TV. VITALS AND I&O'S CHARTED. CALL LIGHT IN REACH. NO FURTHER NEEDS AT THIS TIME.
--- NOTE | 2021-10-14 11:21 | NUR ---
PT READY FOR DISCHARGE. BLAS, PHARMACIST TO BEDSIDE TO REVIEW MEDICAITONS WITH PT. PTS REPORTS HER NEICE, TRISHA, WILL BE TAKING HER HOME. CALL PLACED TO TRISHA, NO ANSWER AT THIS TIME. DISCHRAGE INSTRUCTIONS REVIEWED WITH PT. PT VERBALIZES UNDERSTANDING OF INSTRUCTIONS, MEDICATIONS, FOLLOW UP, AND DAILY WEIGHTS. IV DC'D PER PROTOCOL. GAUZE AND COBAN APPLIED. PT DRESSED WITH ONE PERSON ASSIST. COUGH NOTED WITH ACTIVITY, SEE MAR FOR PRN MEDICAITON GIVEN. AWAITING WORD FROM FAMILY. NO ADDITIONAL NEEDS AT THIS TIME. CALL LIGHT WITHIN REACH.
--- NOTE | 2021-10-14 11:44 | NUR ---
CALL PLACED AGAIN TO TRACEE RICO, PTS DAUGHTER ANSWERES. TRACEE UPDATED ON PT STATUS, DISCHARGE INSTRUCTIONS AND PLAN FOR DISCHARGE. TRACEE STATES SHE WILL INFORM TRISHA WHO WILL COME TO [employer]YNAM[employer] SOLUTION ARCHITECT PT "IN A WHILE." NO ADDITIONAL REQUESTS OR CONCERNS. TRACEE STATES HER QUESITONS HAVE BEEN ANSWERED.
--- NOTE | 2021-10-14 12:14 | NUR ---
THIS RN TO ROOM TO CHECK ON PT. STAND BY ASSIST WITH FWW UP TO CHAIR FOR LUNCH. OXGYEN SATURATION REMAINS AT 95% ON ROOM AIR. MINIMAL SHORTNESS OF BREATH NOTED WITH TRANSFER. COUGH IMPROVING. PT UPDATED ON PLAN FOR DISCHARGE, NO ADDITONAL REQUESTS OR COMPLAINTS. CALL LIGHT WITHIN REACH.
--- NOTE | 2021-10-14 12:22 | NUR ---
TRISHA ARRIVED TO BEDSIDE. DISCHARGE INSTRUCTIONS REVIEWED WITH TRISHA WHO STATES HER QUESTIONS HAVE BEEN ANSWERED. PT AND TRISHA EATING LUNCH. WILL CALL WITH FINRYANSERamona AND READY FOR DISCHARGE. NO ADDITIONAL NEEDS CALL LIGHT WITHIN REACH.
--- NOTE | 2021-10-14 12:43 | NUR ---
PT READY FOR DISCHARGE. STAND BY ASSIST WITH FWW UP TO WHEELCHAIR. PT WHEELED FROM MED/SURG WITH MEREDITH, KELSEY, AND DAUGHTER TRISHA AND ALL BELONGINGS. NO ADDITIONAL REQUESTS OR CONCERNS.
== END 2021-10-14 12:44 | disposition home or self-care (01) | DRG 193 ==
LOC: ED 14:19 → MS 17:32
PROVIDERS: ADMIT Internal Medicine; ATTEND Internal Medicine
DX: J10.01 Influenza due to other identified influenza virus with the same other identified influenza virus pneumonia (principal); J96.01 Acute respiratory failure with hypoxia; E87.1 Hypo-osmolality and hyponatremia; J44.0 Chronic obstructive pulmonary disease with (acute) lower respiratory infection; I50.22 Chronic systolic (congestive) heart failure; E11.9 Type 2 diabetes mellitus without complications; I25.10 Atherosclerotic heart disease of native coronary artery without angina pectoris; Z96.651 Presence of right artificial knee joint; Z96.641 Presence of right artificial hip joint; Z90.49 Acquired absence of other specified parts of digestive tract; Z95.0 Presence of cardiac pacemaker; Z95.1 Presence of aortocoronary bypass graft; Z79.82 Long term (current) use of aspirin; Z79.899 Other long term (current) drug therapy
CPT/HCPCS: 36415; 71045; 80048; 82533; 83036; 83880; 83930; 83935; 84443; 84484; 85025; 93005; 93010; 94640; 94760; A9270; J1100; J1650; J1815

== ENCOUNTER 2021-10-24 06:36 | Inpatient (IN) | payer MEDICARE, OTHER ==
[~2021-10-24] VITALS: Ht 160 cm; Wt 81.2 kg
[~2021-10-24 06:36] MED LIST changes: +DICLOFENAC SOD100 G1 TOP; +ELIQUIS5 MG PO; +OSELTAMIVIR PHO30 MG PO
--- OUTSIDE RECORDS SUMMARY | 2021-10-24 06:44 | XMS ---
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 No recent Security Events currently on file CRITERIA MET - [facility] - 2 Visits in 30 Days CARE PROVIDERS JOHN AMINiatrist Current RENETTA Clark PHONE: [phone] SAMUEL VELÁZQUEZ Internal Medicine Current PHONE: Unknown IZA DEAN Nurse Practitioner Current PHONE: [phone] Dontae Hoffman Structural Steel Fitter/Tripe Finisher 07/15/2021-Current PHONE: [phone] LYLE ANTONIO Nurse Practitioner: Family Current PHONE: Unknown Nurse SIMA Practitioner Current HARLAN URIAS PHONE: [phone] LD ESCOBAR [facility] Current PHONE: [phone] [facility] 05/31/2019-[facility] PHONE: [phone] Shaheed has no Care Guidelines for this patient. Care History Medical/Surgical 08/01/2020 [facility] - PATIENT HAS A CAREGIVER AT HOME AND LIVES WITH FAMILY. - PATIENT HAS A MANAGER DIVERSITY DR SUAREZ AT [facility]- LAST SEEN BY MANAGER DIVERSITY 07/22/20. 3 MONTH FOLLOW UP SCHEDULED. - PATIENT REFERRED TO GI SPECIALIST AT [facility]. COUNTER TENDER TRACEE AT [facility] HAS UPDATED REFERRAL TO URGENT STATUS AND WILL BE CONTACT WITH SPOOL CLEANER OFFICE. - PATIENT PCP HAS RECOMMENDED PATIENT DO SMOKING CESSATION DUE TO CURRENT SMOKING HABIT. 08/01/2020 [facility] Care Recommendation: - PLEASE REVIEW PDMP - SHAHEED - USE EXTREME CAUTION IN GIVING NARCOTICS. - Avoid Discharge Narcotic prescriptions if at all possible. Physician discretion. 02/13/2019 [facility] PATIENT- [facility] ELIGIBLE PLEASE REFER PATIENT TO [facility] FOR NON EMERGENT MEDICAL NEEDS. [facility] CAN SEE PATIENTS SAME DAY FOR APTS IF PATIENT CALLS FIRST THING IN THE MORNING. E.D. VISIT COUNT (12 MO.) 1 [facility] 4 [facility]. TOTAL 5 NOTE: Visits indicate total known visits. ED/UCC VISIT TRACKING (12 MO.) 10/24/2021 06:38 [facility] TYPE: Emergency COMPLAINT: - SOB 10/10/2021 14:21 [facility] TYPE: Emergency COMPLAINT: - FLU SYMPTOMS, FEVER 08/01/2021 12:29 [facility] TYPE: Emergency COMPLAINT: - FALL, L SIDE BODY INJURY DIAGNOSES: - [facility] (current) use of aspirin - Pain in left knee - Fall (on) (from) other stairs and steps, initial encounter - Chronic obstructive pulmonary disease, unspecified - [facility] (current) drug therapy - Nicotine dependence, unspecified, uncomplicated - Unspecified injury of left wrist, hand and finger(s), initial encounter - Pure hypercholesterolemia, unspecified - [facility] (current) use of oral hypoglycemic drugs 04/19/2021 16:48 [facility] TYPE: Emergency COMPLAINT: - WEAKNESS DIAGNOSES: - Pure hypercholesterolemia, unspecified - Chronic obstructive pulmonary disease, unspecified - Other exterminator helper termite (current) drug therapy - [facility] (current) use of oral hypoglycemic drugs - Hypotension, unspecified - Nicotine dependence, unspecified, uncomplicated - Weakness - [facility] (current) use of aspirin - Diarrhea, unspecified 11/20/2020 15:32 [facility] TYPE: Emergency DIAGNOSES: - Acetonuria - Epigastric pain - Acute infarction of intestine, part and extent unspecified - Dehydration - Urinary tract infection, site not specified - Disorder of kidney and ureter, unspecified - Abdominal pain INPATIENT VISIT TRACKING (12 MO.) 10/10/2021 17:32 [facility] TYPE: Medical Surgical COMPLAINT: - INFLUENZA A, HYPOXIC RESPIRATORY FAILURE DIAGNOSES: - Hypo-osmolality and hyponatremia - Type 2 diabetes mellitus without complications - Chronic systolic (congestive) heart failure - Influenza due to other identified influenza virus with the same other identified influenza virus pneumonia - Presence of right artificial knee joint - Influenza due to other identified influenza virus with the same other identified influenza virus pneumonia - [facility] (current) use of aspirin - 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 - Influenza due to identified novel influenza A virus with pneumonia - Acute respiratory failure with hypoxia - Acquired absence of other specified parts of digestive tract - Hypo-osmolality and hyponatremia - Presence of aortocoronary bypass graft - Acquired absence of other specified parts of digestive tract - Presence of aortocoronary bypass graft - Other exterminator helper termite (current) drug therapy - Acute respiratory failure with hypoxia - Presence of right artificial knee joint - Presence of right artificial hip joint - Presence of right artificial hip joint - Other exterminator helper termite (current) drug therapy - 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 - Presence of cardiac pacemaker - [facility] (current) use of aspirin - Chronic systolic (congestive) heart failure - Presence of cardiac pacemaker - Chronic obstructive pulmonary disease with (acute) lower respiratory infection - Type 2 diabetes mellitus without complications - Chronic obstructive pulmonary disease with (acute) lower respiratory infection 11/21/2020 02:25 [facility] TYPE: General Medicine DIAGNOSES: - Acute infarction of intestine, part and extent unspecified - abdominal pain [email or web address]
--- NOTE | 2021-10-24 12:13 | NUR ---
PT ARRIVES TO MS FLOOR VIA BED BY AMBROSIO RN. VS STABLE, ASSESSMENT COMPLETE. PT PLACED ON 2L VIA NC - SP02 STABLE IN MID TO LOW 90'S ON RA, HOWEVER WORK OF BREATHING DECREASES WITH 2L. INSULIN PROVIDED FOR CBG 280. PT HAD LARGE LOOSE BM UPON ARRIVAL - CLEAN ATTENDS IN PLACE. PT STATES SHE IS NORMAL CONTINANT OF STOOL AND URINE BUT TOO WEAK TODAY TO MAKE IT TO BATHROOM AT HOME, BSC WILL BE USED IN ROOM. PT PROVIDED CALL LIGHT AND INSTRUCTED TO CALL IF NEEDING TO VOID.
--- NOTE | 2021-10-24 13:00 | NUR ---
rn rounding on pt - pt resting on side asleep, rr even and unlabored, 2L nc in place. call light in reach.
--- NOTE | 2021-10-24 13:08 | NUR ---
MED REC COMPLETE
--- NOTE | 2021-10-24 14:58 | NUR ---
RN IN ROOM TO ADMINISTER SCHEDULED MEDICATION. PT RESTING IN BED WATCHING TV UPON ENTRY. NC IN PLACE AT 2L WITH NO DISTRESS NOTED BY PT. IV SITE FLUSHES WIHTOUT DIFFICULTY. CALL LIGHT IN REACH.
--- NOTE | 2021-10-24 16:42 | NUR ---
RN IN ROOM TO ASSESS PT - PT WORKING WITH RT UPON ENTERING ROOM. WET COUGH NOTED, MINIMAL PRODUCTION. PT ENCOURAGED AND DEMONSTRATED IS AND FLUTTER VALVE USE. 1L VIA NC IN PLACE. ASSESSMENT UNCHANGED FROM PRIOR. CALL LIGHT IN REACH, PT DENIES FURTHER NEEDS.
--- NOTE | 2021-10-24 17:05 | NUR ---
RN IN ROOM ADMINISTERING SCHEDULED MEDICATIONS. PT AAO WATCHING TV. NO SOB NOTED.
--- NOTE | 2021-10-24 19:48 | NUR ---
pt in bed, hob elevated, on 1LNC, not chronic, lungs coarse and exp wheezing. very anxious and fidgetty. c/o h/a, medicated with Tylenol. tolerating liquids well, no emesis. SL LFA patent. edema to LE, elevated, received neb a few minutes ago. call light and fluids at bedside, bed alarm on
--- NOTE | 2021-10-24 21:44 | NUR ---
ADMINISTERED SCHEDULED MEDS INCLUDING 1 UNIT SS FOR BS OF 170. PT ASKED FOR A SNACK AND GIVEN A SF VANILLA PUDDING SHE CAN'T CHEW HER APPLES WITH HER TEETH AT HOME. STATES HER GRANDKIDS ARE BRINGING THEM IN. PT CALL LIGHT IN REACH.
--- NOTE | 2021-10-24 22:46 | NUR ---
called she needed to get up to urinate. pt was half way out of bed by the time rn got there. 2PA heavy assist to BSC. voided and had a small formed bm. attends was very wet too, skin care. clean attends in place. back to bed, required several cues. very unsteady and increaed sob with exertion present, pt on 1LNC. back to bed with assist. call light at hands reach
--- NOTE | 2021-10-25 00:10 | NUR ---
Resting, on 1LNC, moist cough present on her sleep, no distress at this time. call light and fluids at bedside, turns and repositions self in bed. Bed alarm on
--- NOTE | 2021-10-25 02:05 | NUR ---
awakes easily, coop with asssessment and vitals. On 1LNC, lungs clear uppers, dim at bases at this time, moist productive cough of light yellow/clear phlegm present, able to expectorate into tissue. slow response to questions. Up to BSC, voided and had smear of bm. Back to bed, sob with exertion. 2PA heavy, unsteady gait, requires total help getting out and back to bed. coopertaive, requires several cues. tolerating liquids well, call light at hands reach. Bed alarm on SL patent
--- NOTE | 2021-10-25 06:33 | NUR ---
PT ON 1L NC, LUNGS WERE COARSE AND INSP/EXP WHEEZING AND COARSE, MOIST PRODUCTIVE COUGH PRESENT. PT SLOW REACTION TO INSTRUCTIONS, ALERT AND COOPERATIVE. WAS VERY WEAK AND HEAVY 2 PERSON ASSIST, UNSTEADY, MUCH BETTER THIS AM, TRYING MORE TO GET OUT OF BED AND TO BS, WAS INCONTINENT OF URINE, FRESH ATTENDS , PLUS VOIDED IN BSC, HAD FORMED BM. PLEASANT AND COOP. CBG 170 WAS MEDICATED WITH TYLENOL PER C/O H/A. SL PATENT. REPOSITIONS SELF IN BED
--- NOTE | 2021-10-25 07:15 | NUR ---
PT ASSISTED TO BSC, 2PA, BACK TO BED, NO FURTHER NEEDS AT THIS TIME
--- NOTE | 2021-10-25 07:44 | NUR ---
Patient assisted to bedside commode to void, tolerated well SBA. Patient is on 1L oxygen per nc, respirations non labored at this time. Patient denies needs at this time. Personal supplies and call light within reach.
--- NOTE | 2021-10-25 08:25 | NUR ---
Tylenol 500mg po admin for rib/head pain.
--- NOTE | 2021-10-25 11:34 | NUR ---
Patient resting in bed visiting [facility] family member at bedside. Patient reports she is very weak today and feels short of breath with any movement. Discussed with patient that provider would like us to get her up out of bed to see how she tolerates ambulation. Patient receptive to plan of care at this time. Encouraged patient to call staff if she has needs. Pt remains on 2L oxygen, sp02 93%, rr 24/min.
--- NOTE | 2021-10-25 13:04 | NUR ---
Admin tylenol 500mg po and pseudophedrine 30mg for headache and congestion.
--- NOTE | 2021-10-25 14:50 | EKG ---
[facility] [address] [facility] [place] [address] Signed Normal sinus rhythm Left axis deviation Right bundle branch block Inferior infarct (cited on or before 19-APR-2021) Anterolateral infarct (cited on or before 10-OCT-2021) Abnormal ECG When compared with ECG of 10-OCT-2021 17:17, Questionable change in initial forces of Anterolateral leads Nonspecific T wave abnormality no longer evident in Anterior leads Confirmed by MATTHIAS HOOD MD ([id number]) on 10/25/2021 2:50:26 PM Electronically Signed By: MATTHIAS HOOD MD 10/25/21 1450 PATIENT NAME: JUNIOR HUMPHREYS Electrocardiogram DATE OF : 36 PHYSICIAN: MATTHIAS HOOD MD REPORT #: [id number] REPORT IS CONFIDENTIAL AND NOT TO BE RELEASED WITHOUT AUTHORIZATION
--- NOTE | 2021-10-25 15:28 | NUR ---
Patient called this RN to bedside reporting chest pain. Patient moaning with hand over her chest. Vitals signs stable, sp02 99% on 1L. Patient denies having a history of reflux. Patient reports nausea and abdominal pain. STAT EKG done at this time-NSR. Dr. England to bedside to assess patient. Order to admin GI cocktail, zofran and one tab Holiday 5/325mg po at this time. This RN remained at bedside for fifteen minutes to ensure she remains stable.
--- NOTE | 2021-10-25 17:45 | NUR ---
Patient left unit for imaging at this time.
--- NOTE | 2021-10-25 18:11 | NUR ---
Patient sitting in chair eating dinner, no acute distress. Patient reports she is feeling better, pain is now tolerable she states. Patient denies shortness of breath at this time. Patient appears comfortable without distress. No needs at this time. Personal supplies and call light within reach.
--- NOTE | 2021-10-25 19:45 | NUR ---
PT UP IN CHAQIR, ALERT AND ORIENTED 1LNC, NO C/O PAIN, WATCHING TV, FLUIDS AND CALL LIGHT AT HANDS REACH. LEGS ELEVATED
--- NOTE | 2021-10-25 20:01 | NUR ---
PT UP IN CHAIR, ON ROOM AIR AT THIS TIME,USING BUGLE/CORONET, NO C/O PAIN, MOIST PRODUCTIVE COUGH PRESENT. PLEASANT AND COOPERATIVE. TOLERATING LIQUIDS WELL. USES CALL LIGHT
--- NOTE | 2021-10-25 21:30 | NUR ---
IN TO GET VITALS, ACCU CHECK DONE, PT 1-2PA FWW TO BSC, VOIDED AND THEN TO BED, ENSURE, APPLE SAUCE, ICE WATER FILLED, NO FURTHER NEEDS AT THIS TIME
--- NOTE | 2021-10-25 21:56 | NUR ---
was up in chair, legs elevated. Up to BSC w 2PA/FWW, tolerated very well, voided, walked to bed, did so much better, much more steady gait. involuntary hand tremors present. LE more steady and strong "I feel much more better" stated, on room air. helped self to bed w/o assist. spot checks on return to bed 95% room air, pulse 91, R 22. CBG 142, 1 unit SS, snacks given. bp 99\\44 pulse 89. received propranolos 12.5 as ordered no c/o CP, h/a. watching tv, alert and oriented
--- NOTE | 2021-10-25 23:30 | NUR ---
PT UP TO THE BSC, 1PA FWW, RN IN RM FOR SBA NEEDED, PT BACK TO BED, NO FURTHER NEEDS AT THIS TIME
--- NOTE | 2021-10-25 23:30 | NUR ---
Used call light, up to bsc 1-2PA/FWW, tolerated very well, voided, less shaky, much more steady. alert and oriented, back to bed, still requires help with wiping, up from BSC with fww assist, placed self and repositioned self in bed. dry to moist occ cough present.
--- NOTE | 2021-10-26 00:40 | NUR ---
RESTING, EYES CLOSED,ON ROOM AIR, NO DISTRESS, CALL LIGHT AND FLUIDS AT BEDSIDE
--- NOTE | 2021-10-26 00:55 | NUR ---
PT UP TO VOID, 1PA FWW TO BSC, BACK TO BED
--- NOTE | 2021-10-26 02:55 | NUR ---
IN TO ASSIST WITH BSC NEEDS, SBA-1PA FWW, VOIDED THEN BACK TO BED
--- NOTE | 2021-10-26 04:49 | NUR ---
PT STATES AND LOOKS MUCH BETTER 'I FEEL BETTER' WAS ON ROOM AIR AT BEGINING OF SHIFT AND IS NOW ON ROOM AIR, HYPERVENTILATION NOTED ON RETURN TO BED BUT NO SOB YESTERDAY. SPOT O2 CHECKS DONE ON RETURN FROM BS AND HAS STAYED WNL. WAS 2PA HEAVY ASSIST ADN FWW, NOW IS 1PA/FWW, MINIMUM HELP AT TIMES. HELS SELF AND REPOSITIONS SELF INBED. PRAISED FOR HER EFFORTS. INCONTINETN OF URINE, [facility] SMALL VOID IN BSC. CBG 142, RECEIVED INSULIN COVERAGE. TOLERATING LIQUIDS WELL. CALL LIGHT T HANDS ADIN. BED ALARM, PLEASANT, COOPERATIVE AND WAS BLE TO READ DATE FROM WHITE BOARD. HAS DENIED C/O H/A, CHEST PAIN OR ANY OTHER DISCOMOFRT, TURNS AND REPOSITIONS SELF IN BED. USING PEP CORONET AND IS. GETS NEBS, LUNGS ARE DIM T/O AT THIST WILMAR, HAS MOIST TO DRY OCC COUGH.
--- NOTE | 2021-10-26 05:33 | NUR ---
Up to bsc, voided, minimum of assist . back to bed, tolerated very well, repositioned nad turned self in bed. on room air. tolerating liquids well. Bed alrm on, fall precautions, pleasant and coop
--- NOTE | 2021-10-26 07:33 | NUR ---
Patient sitting up on edge of bed drinking coffee, no distress. Patient is on room air, respirations non labored. Patient has a notable productive cough. Patient reports she slept well and is feeling better this morning. Patient denies pain. Pt encouraged to call staff for needs. Call light within reach.
--- NOTE | 2021-10-26 08:09 | NUR ---
Tylenol 500mg po admin for reports of rib pain from coughing.
--- NOTE | 2021-10-26 12:25 | NUR ---
Embudo 5/325mg po admin for reports of 7/10 right rib pain.
--- NOTE | 2021-10-26 12:42 | NUR ---
lunch delivered to pt. PT REPORTS PAIN IN HER "BREAST BONE." STATING "i'M JUST WAITING FOR THAT PAIN PILL TO KICK IN. ICE PACK PROVIDED. PT APPEARS VERY UNCOMFORTABLE, GROANING AND MOANING. PTS PRIMARY RN UPDATED. PT REMAINS UP TO CHAIR. CALL LIGHT WITHIN REACH.
--- NOTE | 2021-10-26 13:50 | NUR ---
Pt requests aspercreme to back for rib/shoulder pain. Pt repositioned in chair with pillows. Vitals and I/Os complete, no further needs at this time.
--- NOTE | 2021-10-26 15:16 | EKG ---
[facility] [address] [facility] [place] [address] Signed Normal sinus rhythm Right bundle branch block Possible Anterior infarct (cited on or before 10-OCT-2021) Abnormal ECG When compared with ECG of 24-OCT-2021 08:44, Questionable change in initial forces of Anterolateral leads T wave inversion now evident in Anterior leads Confirmed by SHIV LOTT MD ([id number]) on 10/26/2021 3:16:21 PM Electronically Signed By: SHIV LOTT MD 10/26/21 1516 PATIENT NAME: JUNIOR HUMPHREYS Electrocardiogram DATE OF : 36 PHYSICIAN: SHIV LOTT MD REPORT #: [id number] REPORT IS CONFIDENTIAL AND NOT TO BE RELEASED WITHOUT AUTHORIZATION
--- NOTE | 2021-10-26 15:27 | NUR ---
PT expressed feelings of anxiety and weakness. Asked for prayers for strength and comfort, which we prayed together. PT talked of physical discomfort and of her current difficulties. I exercised the ministry of presence, and indicated that I would let [employer] know she would like a visit after Mass. Fr. Bermudez is her regular counselor aid, and she asked that I let him know she is in hospital again. Called Fr. Bermudez at [phone].
--- NOTE | 2021-10-26 15:54 | NUR ---
Patient up to void in bedside commode using walker. Patient assisted to bed per her request. Patient tolerates ambulation fair, she reports pain with movement. No further needs. Personal supplies and call light within reach.
--- NOTE | 2021-10-26 17:10 | NUR ---
Tylenol 500mg po admin for reports of right rib pain.
--- NOTE | 2021-10-26 19:35 | NUR ---
1 PA USING WALKER TO BEDSIDE COMMODE AND BACK TO BED. PATIENT REQUIRES ASSISTANCE ON JYOTHI WIPES. BED ALARM ON FOR SAFETY.
--- NOTE | 2021-10-26 19:36 | NUR ---
BEDSIDE REPORT FROM MIRI Garcia RN, PT HAS NOT HAD ANY NEW ISSUES TODAY, LIKELY DISCHARGE TOMORROW. SBA WITH FWW TO AMBULATE.
--- NOTE | 2021-10-26 20:39 | NUR ---
PT RESTING IN BED NOTED TO HAVE SIGNIFICANT PRODUCTIVE COUGH. Osvaldo JI ADMINISTER KIRK TX, THIS RN IN FOR ROUNDING HS MEDS AND V/S, I/O AND ASSESSMENT.
--- NOTE | 2021-10-27 00:37 | NUR ---
CALL LIGHT ANSWERED. 1 PA TO BEDSIDE COMMODE. PATIENT IS A LITTLE WEAK. JYOTHI CARE ASSISTED. PATIENT IS BACK IN BED. NO OTHER NEEDS AT THIS TIME. BED ALARM ON FOR SAFETY.
--- NOTE | 2021-10-27 01:58 | NUR ---
CALL LIGHT ANSWERED. 1 PA BEDSIDE COMMODE. PATIENT IS BACK IN BED. BED ALARM ON. NO OTHER NEEDS AT THIS TIME.
--- NOTE | 2021-10-27 03:56 | NUR ---
CALL LIGHT ANSWERED. 1 PA BEDSIDE COMMODE. CHANGED ATTENDS. PATIENT IS BACK IN BED. NO OTHER NEEDS AT THIS TIME. BED ALARM ON. CALL LIGHT AND SIDE TABLE IN REACH.
--- NOTE | 2021-10-27 05:36 | NUR ---
PT HAS SLEPT INTERMITTEN OVER SHIFT, SHE HAS BEEN UP TO VOID IN BEDSIDE COMMODE 4 TIMES, SHE IS ONE PERSON STANDBY, PT HAS GENERALIZED WEAKNESS. SHE HAS NOT REPORTED ANY PAIN OR NAUSEA OVER SHIFT, SHE HAD SIGNIFICANT PRODUCTIVE COUGH AT START OF SHIFT, TEA WITH HONEY PROVIDED THIS HELPED WITH COUGH PER PT REPORT. NO NEW CONCERNS OVER SHIFT, SHE HAS IMPROVED APPETITE AND IS ALERT AND ORIENTED.
--- NOTE | 2021-10-27 07:37 | NUR ---
RECD. BEDSIDE REPORT FROM NIGHT RN, ASSUMED ALL CARE OF PT
--- NOTE | 2021-10-27 10:15 | NUR ---
PATIENT SITTING UP IN CHAIR. VITALS AND I&OS CHARTED. ES IN TO MOP FLOOR. CALL LIGHT IN EASY REACH. NO OTHER NEESD AT THIS TIME
--- NOTE | 2021-10-27 11:48 | NUR ---
PT. RESTING IN BED, UP FOR MEALS, RT FOLLOWING WITH NEBS AND SOLUMEDROL IV TX. COARSE LUNG SOUNDS LEFT SIDE, SOMETIMES PRODUCTIVE COUGH, ENCOURAGED TO USE HER ACAPELLA Q 1 HR. APPETITE IS GOOD, ADEQUATE LIQUIDS.
[2021-10-27] MEDS ORDERED: NICOTINE LOZENGE4 MG BUCCAL (12:06)
[2021-10-27] MEDS ORDERED: DOXYCYCLINE HY100 MG PO (12:06)
[2021-10-27] MEDS ORDERED: IPRAT-ALBUT 0.5-3 ML INH (12:06)
--- NOTE | 2021-10-27 12:18 | NUR ---
Pt set up for lunch, sitting up in recliner watching tv. All belongings in reach. pt has no complaints, call light in reach.
--- NOTE | 2021-10-27 12:46 | NUR ---
TEASEL SETTER PAROLE OFFICER REFERRED PT TO ME FOR FOLLOW-UP. PT SITTING IN CHAIR, TV ON. PT SEEMED PLEASED I STOPPED, BEGAN TO TELL ME HOW DISCOURAGED SHE IS WITH HER HEALTH ISSUES. COUGH SEEMS TO REALLY BOTHER HER, NO NAUSEA AT THE MOMENT. PT REQUESTED PRAYER, PRAYER FOR CONFORT AND HEALING. PT ALSO REQUESTED A VISIT FROM FR BRANDT TODAY. INFORMED HIM, HE WILL VISIT PT. GAVE BLESSING, AND WILL FOLLOW NEEDED
--- NOTE | 2021-10-27 13:00 | NUR ---
Attempted to speak with pt. She is sleeping. Per 929 meeting with Frantz Manzo pt may dc to home. Later notified by Dr. Landry, pt will not dc today.
--- NOTE | 2021-10-27 13:22 | NUR ---
ORDER FOR NEBULIZER AND MEDICATION FAXED TO [facility].
--- NOTE | 2021-10-27 14:16 | NUR ---
PATIENT RESTING IN BED. WOKE TO VOICE, VITALS AND I&OS CHARTED. WARM BLANKET PROVIDED PER REQUEST. NO OTHER NEEDS
--- NOTE | 2021-10-27 14:34 | NUR ---
OOB TO CHAIR FOR ALL MEALS. PT. IS COOPERATIVE AND PLEASANT DURING ALL CARE. RT FOLLOWING, SOLUMEDROL DOSE DECREASED. APPETITE IS GOOD, ADEQUATE FLUIDS. CALLS FOR NEEDS. VISITOR TODAY.
--- NOTE | 2021-10-27 17:02 | NUR ---
PT. MAKING PROGRESS WITH AMBULATION IN THE MYLES WITH PT AND SBA FWW, AROUND NURSES STATION JAIL DOWN MYLES AND BACK TO ROOM. SOME SOB WITH EXERTION, PT. QUALIFIES FOR HOME 02, ARRANGED WITH KACEY. SOLUMEDROL DOSE DECREASED AND NEBS PER RT. PT MOSTLY COMPLIANT WITH HER ACAPELLA. GOOD APPETITE, ADEQUATE FLUIDS, CALLS FOR NEEDS. URGENCY WITH URINATION BUT CAN DO BSC WITH MIN ASSIST AND TO BR SBA FWW. VISITORS TODAY, ALL VSS.
--- NOTE | 2021-10-27 19:02 | NUR ---
PT UP TO BEDSIDE COMMODE W/STBY ASSIST FROM THIS CNA2. JYOTHI CARE PERFORMED W/ASSISTANCE, TRANSFERED TO CHAIR W/CHAIR ALARM. LINEN & BRIEF CHANGED. CALL LIGHT IN REACH TO CALL IF NEEDED.
--- NOTE | 2021-10-27 19:36 | NUR ---
SHIFT REPORT FROM CRISTOFER HAYES RN, PT IS IMPROVING IN STRENGTH, PT AMBULATED HALLS TODAY WITH PT. NO NEW CONCERNS TODAY, POSSIBLE DISCHARGE FOR TOMORROW. TITRATED STEROIDS DOWN TODAY.
--- NOTE | 2021-10-27 20:29 | NUR ---
PATIENT USED THE BEDSIDE COMMODE SBA FROM CHAIR. PATIENT IS IN BED NOW. V/S AND I&OTAKEN AND CHARTED. CALL LIGHT AND SIDE TABLE IN REACH.
--- NOTE | 2021-10-27 22:37 | NUR ---
SBA. PATIENT CALLED TO USE THE BEDSIDE COMMODE. PATIENT IS BACK IN BED. NO OTHER NEEDS AT THIS TIME. CALL LIGHT WITHIN REACH.
--- NOTE | 2021-10-28 01:23 | NUR ---
PATIENT CALLED TO USE THE BATHROOM. SBA. BEDSIDE COMMODE. PATIENT IS BACK IN BED. NO OTHER NEEDS AT THIS TIME.
--- NOTE | 2021-10-28 01:51 | NUR ---
ANSWERED CALL LIGHT. PATIENT USED THE BEDSIDE COMMODE. VOIDED SCANT AMOUNT 50CC LIGHT YELLOW. PATIENT IS BACK IN BED. CALL LIGHT WITHIN REACH.
--- NOTE | 2021-10-28 04:20 | NUR ---
PT CALLED NURSES STATION TO REQUEST ASSISTANCE TO BEDSIDE COMMODE, VOIDED 200ML YELLOW URINE, PT BACK TO BED, WARM BLANKET PROVIDED, APPLE JUICE, AND PT REQUESTED NEB TX AT THIS TIME. BRITTANI Riley INTO ADMINISTER NEB TX. NO OTHER CONCERNS OR REQUESTS AT THIS TIME
--- NOTE | 2021-10-28 04:38 | NUR ---
PT HAS SLEPT WELL OVER SHIFT, OCCASSIONAL DEEP PRODUCTIVE COUGH, ONE NEB PRN AND TYLENOL AT HS FOR GENERAL ACHE AND PAIN. SHE HAS BEEN ALERT AND ORIETNED OVER SHIFT. COOPERATIVE WITH PLAN OF CARE, VOIDED ONE PERSON WITH FWW TO BEDSIDE COMMODE. TOLERATED ACTIVITY WELL. USES CALL LIGHT APPROPRIATELY, NO NEW CONCERNS THIS SHIFT.
--- NOTE | 2021-10-28 05:29 | NUR ---
PT CALLED, SBA FWW TO BATHROOM AND BACK TO BED. GARBAGES EMPTIED, NO OTHER NEEDS AT THIS TIME.
--- NOTE | 2021-10-28 06:37 | NUR ---
ASSISTED PT UP AND OUT OF BED SBA TO BR, THEN UP TO RECLINER CHAIR. FRESH CUP COFFEE GIVEN. CALL LIGHT AND PERSONAL SUPPLIES WITHIN REACH.
--- NOTE | 2021-10-28 07:12 | NUR ---
REPORT RECEIVED FROM ONUR ROCHA. PT UP TO CHAIR, LOOKING OUT WINDOW. PT DENIES PAIN AND NAUSEA. HARSH COUGH NOTED. PT REPORTS FEELING "BETTER" TODAY. NO ADDITIONAL REQUESTS OR COMPLAINTS. CALL LIGHT WITHIN REACH.
--- NOTE | 2021-10-28 09:05 | NUR ---
MORNING ASSESSMENT AND MEDICATION DUE. PT REMAINS UP TO CHAIR, FINISHED WITH BREAKFAST. PT DENIES PAIN AND NAUSEA. IV ASSESSED, LEAKING. IV DC'D PEROTOCOL. GAUZE AND COBAN APPLIED. PT REPORTS SHE IS ANTICIPATING DISCHARGE, IV LEFT OUT AT THIS TIME PENDING MD ORDERS. PT ALERT AND OREINTED TO ALL. STRONG FAMILY CASEWORKER, PLANTAR AND DORSI FLEXION NOTED. PT REPORTS "MY KNEES ARE JELLO LIKE." BUT OTHERWISE STATES STRENGTH HAS RETURNE TO NORMAL. NUMBNESS TO BLE REMAINS PER BASELINE. LUNG SOUNDS CLEAR IN UPPER LOBES. DEMINISHED AND CORSE IN LOWER LOBES. OCCATIONAL HARSH HACKING LOOSE COUGH NOTED WITH THICH WHITE SPUTUM, IMPROVING. PTS COUGH LESS AGRESSIVE AND FREQUENT THAN YESTERDAY. PT DEMONSRATES USE OF I.S. REACHING 1250ML X5 AND CORNET X5. PT TOLERATING ROOM AIR. HEART TONES REGULAR. BOWEL TONES ACTIVE. DR. LOTT TO BEDSIDE FOR ROUNDS. REPORTS PLAN FOR PT TO DISCHRAGE TODAY. PT VERBALIZES UNDERSTANDING. NO ADDITIONAL REQUESTS OR COMPLAINTS. CALL LIGHT WITHIN REACH.CHAIR ALARM ON.
--- NOTE | 2021-10-28 10:00 | NUR ---
Contacted [facility] to check on nebulizer. It will be delivered today. Ipatrop/alb will be shipped from their pharmacy and delivered to her home tomorrow. Spoke with Doron from our pharm and he will get an rx to fill a few to cover pt until med arrives tomorrow. Prescriptions for new meds faxed to [facility]. I called and spoke with Sandra and she confirms they have the meds order. Spoke with pt and updated to the above. Pt denies any further needs and plans on dc to home with cg after 4 pm today. She asks I call her cg and remind her she does not have any clothing or her purse. Called and spoke with Shu ERICKSON and she will picking table worker pts clothing and purse. Updated to the above also and she will take pt to [facility] her way home.
--- NOTE | 2021-10-28 10:00 | NUR ---
PT UP FOR SHOWER WITH PERFORMANCE IMPROVEMENT ANALYST. 1 PERSON ASSIST. LINENS CHANGED. CALL LIGHT WITHIN REACH. NO ADDITONAL NEEDS AT THIS TIME.
--- NOTE | 2021-10-28 10:39 | NUR ---
PT TOOK SHOWER WITH VERBAL CUES. PT USES FWW TO AMBULATE FROM CHAIR TO SHOWER THEN SHOWER TO BED. PT NOW RESTING IN BED. LINEN CHANGED. CALL LIGHT IN REACH. NO FURTHER NEEDS AT THIS TIME.
--- NOTE | 2021-10-28 10:50 | NUR ---
THIS RN TO ROOM TO CHECK ON PT. PT BACK TO BED AFTER SHOWER. PT DENIES PAIN AND NAUSEA. PT REPORTS "I'M JUST RESTING COMFORTABLY." PT DENIES ADDITOINAL REQUESTS OR COMPLAINTS. CALL LIGHT WITHIN REACH. BED RAILS UP.
[2021-10-28] MEDS ORDERED: PREDNISONE10 MG PO (11:15)
--- NOTE | 2021-10-28 11:17 | NUR ---
PT CALL LIGHT ON. PT REQUESTS ASSISTANCE UP TO RESTROOM. STAND BY ASSIST WITH FWW UP TO RESTROOM. PT VOIDS WITHOUT ISSUE. PT PERFORMS SELF JYOTHI CARE. DEPENDS DRY. STAND BY ASSIST BACK TO BED. PT UPDATED ON PLAN OF CARE AND PLAN FOR DISCHARGE. PT VERBALIZES UNDERSTANDING. NO ADDITONAL REQUESTS OR COMPLAINTS. CALL LIGHT WITHIN REACH. BED RAILS UP. BED ALARM ON.
--- NOTE | 2021-10-28 11:22 | NUR ---
PT REQUESTS HER CAREGIVER, LUX, BE CALLED WITH AN UPDATE FOR DISCHAGE AND RIDE HOME. CALL PLACED TO LXU WHO STATES SHE CAN BE INTO MORTGAGE UNDERWRITER PT AT 1600. CHARGE NURSE UPDATED. PT UPDATED. NO ADDITIONAL NEEDS AT THIS TIME.
--- NOTE | 2021-10-28 12:03 | NUR ---
PT IS ALERT, ORIENTED AND SITTING IN CHAIR IN FRONT OF WINDOW. PT ENJOYS WATCHING THE BUILDING GOING ON NEXT DOOR. PT SAID SHE FEELS MUCH BETTER, SEEMS PLEASED I STOPPED BY. PT REQUESTED VISIT FROM FR VAZQUEZ, WILL INFORM HIM. GAVE ENCOURAGEMENT, WILL FOLLOW
--- NOTE | 2021-10-28 12:15 | NUR ---
THIS RN TO ROOM TO CHECK ON PT. PT EATING LUNCH WHILE LYING IN BED. PT ENCORAUGED TO GET UP TO CHAIR. PT AGREES. STAND BY ASSIST UP TO CHAIR. PT DENIES PAIN AND NAUSEA. PHARMACIST TO BEDSIDE TO TALK WITH PT ABOUT HOME MEDICATIONS. PT VERBLAIZES UNDERSTANDING OF MEDICAITONS AND STATES HER QUESTIONS HAVE BEEN ANSWERED. PT DENIES ADDITONAL REQUESTS OR COMPLAINTS. CALL LIGHT WITHIN REACH. CHAIR ALARM ON.
--- NOTE | 2021-10-28 12:43 | NUR ---
FATHER TAYLOR TO BEDSIDE TO VISIT WITH PT. PT REMAINS UP TO CHAIR, FINISHED WITH LUNCH. PT CONTINUES TO DENY PAIN AND NAUSEA. NO ADDITIONAL REQUESTS OR COMPLAINTS. CALL LIGHT WITHIN REACH. CHAIR ALARM ON.
--- NOTE | 2021-10-28 14:00 | NUR ---
Aleksander here from [facility] and delivered pts Nebulizer as requested by pt. Pt instructed on use by Aleksander.
--- NOTE | 2021-10-28 14:13 | NUR ---
PT RESTING IN BED WITH EYES CLOSED. NO FURTHER NEEDS AT THIS TIME.
--- NOTE | 2021-10-28 14:57 | NUR ---
AFTERNOON ASSESSMENT DUE. PT READY FOR DISCHRAGE. PT REMAINS UP TO CHAIR AFTER USING THE RESTROOM. PT TEXTING ON PHONE. PT DENEIS PAIN AND NAUSEA. PT REMAINS ALERT AND ORIENTED TO ALL. PT ALBE TO MOVE ABOUT IN ROOM WITH STAND BY ASSIST AND FRONT WHEEL WALKER. LUNG SOUNDS IMPROVED. NOW MOSTLY CLEAR IN BASES WITH AN OCCATIONAL CRACKEL. HARSH, HACKING COUGH NOTED WITH DEEP BREATHING. PT DEMONSTRATES USE OF I.S. REACHIGN 1000ML X5 AND CORENT X5. HEART TONES REGULAR. DISCHARGE INSTRUCTIONS REVIEWED WITH PT. PT VERBALIZES UNDERSTANDING OF INSTRUCTIONS, MEDICATION, AND FOLLOW UP. PT ABLE TO REPEAT BACK INSTRUCTIONS AND STATES HER QUESTIONS HAVE BEEN ANSWERED. PT ASSISTED WITH CALLING HER DAUGHTER ON THE PHONE. PT UPDATES HER DAUGHTER ON DISCHARGE AND INSTRUCTIONS. PT DENIES ADDITIONAL REQUESTS OR COMPLAINTS. PT AWAITING HER RIDE TO COME WITH HER CLOTHES. NO ADDITIONAL REQUESTS OR COMPLAINTS. CALL LIGHT WITHIN REACH.
--- NOTE | 2021-10-28 16:25 | NUR ---
PTS CAREGIVER, LUX, ARRIVED TO TAKE PT HOME. PT DRESSED WITH 1 PERSON ASSIST. BELOINGINGS PACKED. RT TO BEDSIDE FOR NEB TX PRIOR TO DISCHRAGE PER PT REQUEST. DISCHARGE INSTRUCTIONS REVIEWED WITH LUX WHO STATES HER QUESTIONS HAVE BEEN ANSWERED. PT STATES PHARMACY WAS GOING TO GIVE HER "SOME NEB TREATEMENTS" PRIOR TO DISCHARGE. PHARMACY CALLED, AWAITING RESPONSE. NO ADDITIONAL NEEDS AT THIS TIME. CALL LIGHT WITHIN REACH.
--- NOTE | 2021-10-28 16:40 | NUR ---
PHARMACY ISSUES RESOLVED. PT WHEELED FROM MED/SURG BY MANAGER QUALITY AND CAREGIVER. NO ADDITIONAL REQUESTS OR CONCERNS. ALL BELONGINGS WITH PT.
== END 2021-10-28 16:40 | disposition home or self-care (01) | DRG 191 ==
LOC: ED 06:36 → MS 06:39
PROVIDERS: ADMIT Internal Medicine; ATTEND Internal Medicine
DX: J44.1 Chronic obstructive pulmonary disease with (acute) exacerbation (principal); I50.22 Chronic systolic (congestive) heart failure; I11.0 Hypertensive heart disease with heart failure; E11.9 Type 2 diabetes mellitus without complications; F17.210 Nicotine dependence, cigarettes, uncomplicated; E78.00 Pure hypercholesterolemia, unspecified; Z79.82 Long term (current) use of aspirin; Z79.899 Other long term (current) drug therapy; Z20.822 Contact with and (suspected) exposure to COVID-19; I25.2 Old myocardial infarction; Z95.5 Presence of coronary angioplasty implant and graft; K21.9 Gastro-esophageal reflux disease without esophagitis
CPT/HCPCS: 36415; 71045; 71111; 80053; 81001; 82803; 83036; 83880; 85025; 87502; 93005; 93010; 94640; 94667; 94668; 94760; 94761; 96374; 97110; 97116; 97161; 97165; 97530; 99285-25; 99406; A9270; J1815; J2405; J2920; J2930; J7040; J7512; U0003

== ENCOUNTER 2021-11-03 16:55 | Emergency (ER) | payer MEDICARE, OTHER ==
[~2021-11-03] VITALS: Ht 160 cm; Wt 81.2 kg
[~2021-11-03 16:55] MED LIST changes: +DOXYCYCLINE HY100 MG PO; +NICOTINE LOZENGE4 MG BUCCAL; +PREDNISONE10 MG PO
--- OUTSIDE RECORDS SUMMARY | 2021-11-03 17:00 | XMS ---
PreManage Notification: JUNIOR HUMPHREYS Security Special Needs Child Caregiver Events No recent Security Events currently on file CRITERIA MET - [facility] - 2 Visits in 30 Days CARE PROVIDERS JOHN AMIN Research Hydrologist Current RENETTA Clark PHONE: [phone] SAMUEL VELÁZQUEZ Internal Medicine Current PHONE: Unknown ZIA DEAN Nurse Practitioner Current PHONE: [phone] Dontae Hoffman Computer Systems Hardware Analyst/Editor Dictionary 07/15/2021-Current PHONE: [phone] LYLE ANTONIO Nurse Practitioner: Family Current PHONE: Unknown Nurse SIMA Practitioner Current HARLAN URIAS PHONE: [phone] LD ESCOBAR [facility] Current PHONE: [phone] [facility] 05/31/2019-[facility] PHONE: [phone] Shaheed has no Care Guidelines for this patient. Care History Medical/Surgical 08/01/2020 [facility] - PATIENT HAS A CAREGIVER AT HOME AND LIVES WITH FAMILY. - PATIENT HAS A PRODUCTION DIRECTOR DR SUAREZ AT [facility]- [phone] LAST SEEN BY PRODUCTION DIRECTOR 07/22/20. 3 MONTH FOLLOW UP SCHEDULED. - PATIENT REFERRED TO GI SPECIALIST AT [facility]. POLYSOMNOGRAPH TECH TRACEE AT [facility] HAS UPDATED REFERRAL TO URGENT STATUS AND WILL BE CONTACT WITH GLOBAL CONSUMER SECTOR VICE PRESIDENT OFFICE. - PATIENT PCP HAS RECOMMENDED PATIENT DO SMOKING CESSATION DUE TO CURRENT SMOKING HABIT. 08/01/2020 [facility] Care Recommendation: - PLEASE REVIEW PDMP - SHAHEED - USE EXTREME CAUTION IN GIVING NARCOTICS. - Avoid Discharge Narcotic prescriptions if at all possible. Physician discretion. 02/13/2019 [facility] PATIENT- [facility] ELIGIBLE PLEASE REFER PATIENT TO [facility] FOR NON EMERGENT MEDICAL NEEDS. [facility] CAN SEE PATIENTS SAME DAY FOR APTS IF PATIENT CALLS FIRST THING IN THE MORNING. E.D. VISIT COUNT (12 MO.) 1 [facility] 5 [facility]. TOTAL 6 NOTE: Visits indicate total known visits. 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 - Pain in left knee - Fall (on) (from) other stairs and steps, initial encounter - Chronic obstructive pulmonary disease, unspecified - Other assistant terminal manager (current) drug therapy - Nicotine dependence, unspecified, uncomplicated - Unspecified injury of left wrist, hand and finger(s), initial encounter - Pure hypercholesterolemia, unspecified - intermodal truck driver (current) use of oral hypoglycemic drugs 04/19/2021 16:48 [facility] [place] TYPE: Emergency COMPLAINT: - WEAKNESS DIAGNOSES: - Pure hypercholesterolemia, unspecified - Chronic obstructive pulmonary disease, unspecified - Other assistant terminal manager (current) drug therapy - detention (current) use of oral hypoglycemic drugs - Hypotension, unspecified - Nicotine dependence, unspecified, uncomplicated - Weakness - 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 - Diarrhea, unspecified 11/20/2020 15:32 [facility] [place] TYPE: Emergency DIAGNOSES: - Acetonuria - Epigastric pain - Acute infarction of intestine, part and extent unspecified - Dehydration - Urinary tract infection, site not specified - Disorder of kidney and ureter, unspecified - Abdominal pain INPATIENT VISIT TRACKING (12 MO.) 10/25/2021 11:59 [facility] [place] TYPE: Medical Surgical COMPLAINT: - COPD EXACERBATION DIAGNOSES: - Old myocardial infarction - Other assistant terminal manager (current) drug therapy - Type 2 diabetes mellitus without complications - Chronic obstructive pulmonary disease with (acute) exacerbation - Contact with and (suspected) exposure to COVID-19 - Pure hypercholesterolemia, unspecified - Presence of coronary angioplasty implant and graft - 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 - Nicotine dependence, cigarettes, uncomplicated - Chronic systolic (congestive) heart failure - Gastro-esophageal reflux disease without esophagitis - Hypertensive heart disease with heart failure 10/10/2021 17:32 [facility] [place] TYPE: Medical [...] same other identified influenza virus pneumonia - detention (current) use of aspirin - Atherosclerotic heart disease of [place] coronary artery without angina pectoris - Influenza due to identified novel influenza A virus with pneumonia - Acute respiratory failure with hypoxia - Acquired absence of other specified parts of digestive tract - Hypo-osmolality and hyponatremia - Presence of aortocoronary bypass graft - Acquired absence of other specified parts of digestive tract - Presence of aortocoronary bypass graft - Other assistant terminal manager (current) drug therapy - Acute respiratory failure with hypoxia - Presence of right artificial knee joint - Presence of right artificial hip joint - Presence of right artificial hip joint - Other care home (current) drug therapy - Atherosclerotic heart disease of [place] coronary artery without angina pectoris - Presence of cardiac pacemaker - 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
== END 2021-11-04 04:59 | disposition home or self-care (01) ==
LOC: ED 16:55
DX: R10.9 Unspecified abdominal pain (principal); R74.02 Elevation of levels of lactic acid dehydrogenase [LDH]; J44.9 Chronic obstructive pulmonary disease, unspecified; R73.03 Prediabetes; I50.9 Heart failure, unspecified; F17.200 Nicotine dependence, unspecified, uncomplicated; Z20.822 Contact with and (suspected) exposure to COVID-19; Z79.899 Other long term (current) drug therapy
CPT/HCPCS: 36415; 74177; 80053; 83605; 83690; 84484; 85025; 87502; 93005; 93010; Q9967; U0003

== ENCOUNTER 2022-03-31 11:49 | Emergency (ER) | payer MEDICARE, OTHER ==
[~2022-03-31] VITALS: Ht 160 cm; Wt 90.7 kg
--- OUTSIDE RECORDS SUMMARY | 2022-03-31 11:56 | XMS ---
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 No recent Security Events currently on file CRITERIA MET - [facility] - 2 Visits in 30 Days CARE PROVIDERS JOHN AMIN Grain Elevator Superintendent Current RENETTA Clark PHONE: [phone] SAMUEL VELÁZQUEZ Internal Medicine Current PHONE: [phone] IZA DEAN Nurse Practitioner Current PHONE: [phone] Dontae Hoffman Director Clinical Pharmacology/Bankruptcy Paralegal 07/15/2021-Current PHONE: [phone] LYLE ANTONIO Nurse Practitioner: Family Current PHONE: Unknown Nurse Mitzy GAO ADONAY PHONE: [phone] LD ESCOBAR [facility] Current PHONE: [phone] [facility] 05/31/2019-[facility] PHONE: [phone] Shaheed has no Care Guidelines for this patient. Care History Medical/Surgical 08/01/2020 [facility] - PATIENT HAS A CAREGIVER AT HOME AND LIVES WITH FAMILY. - PATIENT HAS A DRONE PILOT DR SUAREZ AT [facility]- LAST SEEN BY DRONE PILOT 07/22/20. 3 MONTH FOLLOW UP SCHEDULED. - PATIENT REFERRED TO GI SPECIALIST AT [facility]. COMEDIAN TRACEE AT [facility] HAS UPDATED REFERRAL TO URGENT STATUS AND WILL BE CONTACT WITH OCEANOGRAPHY PROFESSOR OFFICE. - PATIENT PCP HAS RECOMMENDED PATIENT DO SMOKING CESSATION DUE TO CURRENT SMOKING HABIT. 08/01/2020 [facility] Care Recommendation: - PLEASE REVIEW PDMP - SHAHEED - USE EXTREME CAUTION IN GIVING NARCOTICS. - Avoid Discharge Narcotic prescriptions if at all possible. Physician discretion. 02/13/2019 [facility] PATIENT- [facility] ELIGIBLE PLEASE REFER PATIENT TO [facility] FOR NON EMERGENT MEDICAL NEEDS. [facility] CAN SEE PATIENTS SAME DAY FOR APTS IF PATIENT CALLS FIRST THING IN THE MORNING. E.D. VISIT COUNT (12 MO.) [address] TOTAL 7 NOTE: Visits indicate total known visits. ED/UCC VISIT TRACKING (12 MO.) 03/31/2022 11:50 [facility] [place] TYPE: Emergency COMPLAINT: - DIFFICULTY BREATHING, SWOLLEN LEGS 03/05/2022 22:13 [facility] [place] TYPE: Emergency DIAGNOSES: 00070. N/V COUGH CONFUSION 31783. N/V 03409. Encephalopathy, unspecified 01867. Nausea with vomiting, unspecified 87188. Heart failure, unspecified 01666. Shock, unspecified 11/03/2021 16:56 [facility] TYPE: Emergency COMPLAINT: - ABDOMINAL PAIN DIAGNOSES: - Prediabetes - Elevation of levels of lactic acid dehydrogenase [LDH] - Heart failure, unspecified - Other watermaster (current) drug therapy - Nicotine dependence, unspecified, uncomplicated - Contact with and (suspected) exposure to COVID-19 - Chronic obstructive pulmonary disease, unspecified - Unspecified abdominal pain 10/24/2021 06:38 [facility] TYPE: Emergency COMPLAINT: - SOB 10/10/2021 14:21 [facility] TYPE: Emergency COMPLAINT: - FLU SYMPTOMS, FEVER 08/01/2021 12:29 [facility] TYPE: Emergency COMPLAINT: - FALL, L SIDE BODY INJURY DIAGNOSES: - Pain in left knee - watermaster (current) use of oral hypoglycemic drugs - Unspecified injury of left wrist, hand and finger(s), initial encounter - Other prison (current) drug therapy - Fall (on) (from) other stairs and steps, initial encounter - group home (current) use of aspirin - Pure hypercholesterolemia, unspecified - Nicotine dependence, unspecified, uncomplicated - Chronic obstructive pulmonary disease, unspecified 04/19/2021 16:48 [facility] [place] TYPE: Emergency COMPLAINT: - WEAKNESS DIAGNOSES: - Chronic obstructive pulmonary disease, unspecified - Diarrhea, unspecified - Weakness - Hypotension, unspecified - Other watermaster (current) drug therapy - Pure hypercholesterolemia, unspecified - group home (current) use of aspirin - Nicotine dependence, unspecified, uncomplicated - group home (current) use of oral hypoglycemic drugs INPATIENT VISIT TRACKING (12 MO.) 03/05/2022 22:[facility] DIAGNOSES: 57810. Heart failure, unspecified 89033. Shock, unspecified 71952. Encephalopathy, unspecified 02464. Nausea with vomiting, unspecified 10/25/2021 11:59 [facility] TYPE: Medical Surgical COMPLAINT: - COPD EXACERBATION DIAGNOSES: - Old myocardial infarction - Chronic systolic (congestive) heart failure - Contact with and (suspected) exposure to COVID-19 - watermaster (current) use of aspirin - Type 2 diabetes mellitus without complications - Hypertensive heart disease with heart failure - Presence of coronary angioplasty implant and graft - Pure hypercholesterolemia, unspecified - Gastro-esophageal reflux disease without esophagitis - Presence of coronary angioplasty implant and graft - Other watermaster (current) drug therapy - watermaster (current) use of aspirin - Other watermaster (current) drug therapy - Contact with and (suspected) exposure to COVID-19 - Nicotine dependence, cigarettes, uncomplicated - Chronic obstructive pulmonary disease with (acute) exacerbation - Old myocardial infarction - Type 2 diabetes mellitus without complications - Hypertensive heart disease with heart failure - Nicotine dependence, cigarettes, uncomplicated - Chronic systolic (congestive) heart failure - Gastro-esophageal reflux disease without esophagitis - Pure hypercholesterolemia, unspecified 10/10/2021 17:[address] [facility] [place] TYPE: Medical Surgical COMPLAINT: - INFLUENZA A, HYPOXIC RESPIRATORY FAILURE DIAGNOSES: - Chronic obstructive pulmonary disease with (acute) lower respiratory infection - Presence of aortocoronary bypass graft - Atherosclerotic heart disease of [place] coronary artery without angina pectoris - Influenza due to other identified influenza virus with the same other identified influenza virus pneumonia - Presence of aortocoronary bypass graft - group home (current) use of aspirin - Atherosclerotic heart disease of [place] coronary artery without angina pectoris - Acute respiratory failure with hypoxia - Presence of cardiac pacemaker - Acute respiratory failure with hypoxia - Presence of right artificial hip joint - Chronic systolic (congestive) heart failure - Type 2 diabetes mellitus without complications - Hypo-osmolality and hyponatremia - Other prison (current) drug therapy - Presence of right artificial knee joint - Other watermaster (current) drug therapy - Acquired absence of other specified parts of digestive tract - Presence of cardiac pacemaker - watermaster (current) use of aspirin - Hypo-osmolality and hyponatremia - Chronic systolic (congestive) heart failure - Influenza due to identified novel influenza A virus with pneumonia - Presence of right artificial knee joint - Type 2 diabetes mellitus without complications - Chronic obstructive pulmonary disease with (acute) lower respiratory infection - Acquired absence of other specified parts of digestive tract - Presence of right artificial hip joint - Influenza due to other identified influenza virus with the same other identified influenza virus pneumonia [email or web address]
[2022-03-31] MEDS ORDERED: LASIX40 MG PO (17:46)
[2022-03-31] MEDS ORDERED: K-TAB ER20 MEQ PO (17:46)
[2022-03-31] MEDS ORDERED: COMBIVENT RESPIM4 GM INH (17:46)
--- NOTE | 2022-03-31 17:53 | EKG ---
[facility] [address] [place] [address] Signed Sinus rhythm with occasional premature ventricular complexes and premature atrial complexes Possible Left atrial enlargement Left axis deviation Right bundle branch block Inferior infarct , age undetermined Anterolateral infarct (cited on or before 10-OCT-2021) Abnormal ECG When compared with ECG of 25-OCT-2021 13:54, premature ventricular complexes are now present premature atrial complexes are now present QRS axis shifted left Questionable change in initial forces of Anterolateral leads Confirmed by MATTHIAS HOOD MD ([id number]) on 03/31/2022 5:53:02 PM Electronically Signed By: MATTHIAS HOOD MD 03/31/22 1753 PATIENT NAME: JUNIOR HUMPHREYS Electrocardiogram DATE OF : 36 PHYSICIAN: MATTHIAS HOOD MD REPORT #: [id number] REPORT IS CONFIDENTIAL AND NOT TO BE RELEASED WITHOUT AUTHORIZATION
== END 2022-03-31 19:02 | disposition home or self-care (01) ==
LOC: ED 11:49
DX: I50.9 Heart failure, unspecified (principal); J44.9 Chronic obstructive pulmonary disease, unspecified; F17.200 Nicotine dependence, unspecified, uncomplicated; Z95.0 Presence of cardiac pacemaker; Z95.1 Presence of aortocoronary bypass graft; Z79.82 Long term (current) use of aspirin; Z79.52 Long term (current) use of systemic steroids; Z20.822 Contact with and (suspected) exposure to COVID-19
CPT/HCPCS: 36415; 71045; 80053; 83735; 83880; 84484; 85025; 87502; 93005; 93010; 94640; J1940; U0003

== ENCOUNTER 2022-04-17 10:36 | Emergency (ER) | payer MEDICARE, OTHER ==
[~2022-04-17] VITALS: Ht 160 cm; Wt 90.7 kg
[~2022-04-17 10:36] MED LIST changes: +K-TAB ER20 MEQ PO; +LASIX40 MG PO
--- OUTSIDE RECORDS SUMMARY | 2022-04-17 10:44 | XMS ---
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 - 2 Visits in 30 Days CARE PROVIDERS JOHN AMIN Certified Novell Engineer Current RENETTA Clark PHONE: [phone] SAMUEL VELÁZQUEZ Internal Medicine Current PHONE: [phone] IZA DEAN Nurse Practitioner Current PHONE: [phone] Dontae Hoffman Wire Saw Operator/Quality Assurance Analyst 07/15/2021-Current PHONE: [phone] LYLE ANTONIO Nurse Practitioner: Family Current PHONE: Unknown Nurse Mitzy GAO ADONAY PHONE: [phone] LD ESCOBAR [facility] Current PHONE: [phone] [facility] 05/31/2019-[facility] PHONE: [phone] Shaheed has no Care Guidelines for this patient. Care History Medical/Surgical 08/01/2020 [facility] - PATIENT HAS A CAREGIVER AT HOME AND LIVES WITH FAMILY. - PATIENT HAS A PRACTICE BILLING ASSOCIATE DR SUAREZ AT [facility]- [phone] LAST SEEN BY PRACTICE BILLING ASSOCIATE 07/22/20. 3 MONTH FOLLOW UP SCHEDULED. - PATIENT REFERRED TO GI SPECIALIST AT [facility]. DIRECTOR FUNERAL TRACEE AT [facility] HAS UPDATED REFERRAL TO URGENT STATUS AND WILL BE CONTACT WITH PLATER BARREL OFFICE. - PATIENT PCP HAS RECOMMENDED PATIENT DO SMOKING CESSATION DUE TO CURRENT SMOKING HABIT. 08/01/2020 [facility] Care Recommendation: - PLEASE REVIEW PDMP - SHAHEED - USE EXTREME CAUTION IN GIVING NARCOTICS. - Avoid Discharge Narcotic prescriptions if at all possible. Physician discretion. 02/13/2019 [facility] PATIENT- [facility] ELIGIBLE PLEASE REFER PATIENT TO [facility] FOR NON EMERGENT MEDICAL NEEDS. [facility] CAN SEE PATIENTS SAME DAY FOR APTS IF PATIENT CALLS FIRST THING IN THE MORNING. E.D. VISIT COUNT (12 MO.) [address] TOTAL 8 NOTE: Visits indicate total known visits. ED/UCC VISIT TRACKING (12 MO.) 04/17/2022 10:37 [facility] [place] TYPE: Emergency COMPLAINT: - WEAKNESS, SHAKY 03/31/2022 11:50 [facility] TYPE: Emergency COMPLAINT: - DIFFICULTY BREATHING, SWOLLEN LEGS DIAGNOSES: - Presence of aortocoronary bypass graft - [facility] (current) use of aspirin - Nicotine dependence, unspecified, uncomplicated - Chronic obstructive pulmonary disease, unspecified - Presence of cardiac pacemaker - Heart failure, unspecified - Shortness of breath - [facility] (current) use of systemic steroids - Contact with and (suspected) exposure to COVID-19 03/05/2022 22:13 [facility] DIAGNOSES: 74340. N/V COUGH CONFUSION 94191. N/V 73367. Shock, unspecified 46427. Encephalopathy, unspecified 57506. Nausea with vomiting, unspecified 24493. Heart failure, unspecified 11/03/2021 16:56 [facility] [place] TYPE: Emergency COMPLAINT: - ABDOMINAL PAIN DIAGNOSES: - Unspecified abdominal pain - Prediabetes - Elevation of levels of lactic acid dehydrogenase [LDH] - Heart failure, unspecified - Other fdc (current) drug therapy - Nicotine dependence, unspecified, uncomplicated - Contact with and (suspected) exposure to COVID-19 - Chronic obstructive pulmonary disease, unspecified 10/24/2021 06:38 [facility] [place] TYPE: Emergency COMPLAINT: - SOB 10/10/2021 14:21 [facility] [place] TYPE: Emergency COMPLAINT: - FLU SYMPTOMS, FEVER 08/01/2021 12:29 [facility] [place] TYPE: Emergency COMPLAINT: - FALL, L SIDE BODY INJURY DIAGNOSES: - Chronic obstructive pulmonary disease, unspecified - Pain in left knee - M[facility] (current) use of oral hypoglycemic drugs - Unspecified injury of left wrist, hand and finger(s), initial encounter - Other fdc (current) drug therapy - Fall (on) (from) other stairs and steps, initial encounter - adjunct faculty for medical terminology (current) use of aspirin - Pure hypercholesterolemia, unspecified - Nicotine dependence, unspecified, uncomplicated 04/19/2021 16:48 [facility] [place] TYPE: Emergency COMPLAINT: - WEAKNESS DIAGNOSES: - adjunct faculty for medical terminology (current) use of oral hypoglycemic drugs - Chronic obstructive pulmonary disease, unspecified - Diarrhea, unspecified - Weakness - Hypotension, unspecified - Other fdc (current) drug therapy - Pure hypercholesterolemia, unspecified - adjunct faculty for medical terminology (current) use of aspirin - Nicotine dependence, unspecified, uncomplicated INPATIENT VISIT TRACKING (12 MO.) 03/05/2022 22:13 [facility] [place] TYPE: General Medicine DIAGNOSES: 01616. Nausea with vomiting, unspecified 83067. Heart failure, unspecified 76343. Shock, unspecified 33369. Encephalopathy, unspecified 10/25/2021 11:59 [facility] TYPE: Medical Surgical COMPLAINT: - COPD EXACERBATION DIAGNOSES: - Chronic systolic (congestive) heart failure - Gastro-esophageal reflux disease without esophagitis - Pure hypercholesterolemia, unspecified - Old myocardial infarction - Chronic systolic (congestive) heart failure - Contact with and (suspected) exposure to COVID-19 - MCC (current) use of aspirin - Type 2 diabetes mellitus without complications - Hypertensive heart disease with heart failure - Presence of coronary angioplasty implant and graft - Pure hypercholesterolemia, unspecified - Gastro-esophageal reflux disease without esophagitis - Presence of coronary angioplasty implant and graft - Other intermodal customer service (current) drug therapy - adjunct faculty for medical terminology (current) use of aspirin - Other intermodal customer service (current) drug therapy - Contact with and (suspected) exposure to COVID-19 - Nicotine dependence, cigarettes, uncomplicated - Chronic obstructive pulmonary disease with (acute) exacerbation - Old myocardial infarction - Type 2 diabetes mellitus without complications - Hypertensive heart disease with heart failure - Nicotine dependence, cigarettes, uncomplicated 10/10/2021 17:32 [facility] TYPE: Medical Surgical COMPLAINT: - INFLUENZA A, HYPOXIC RESPIRATORY FAILURE DIAGNOSES: - Chronic obstructive pulmonary disease with (acute) lower respiratory infection - Acquired absence of other specified parts of digestive tract - Presence of right artificial hip joint - Influenza due to other identified influenza virus with the same other identified influenza virus pneumonia - Chronic obstructive pulmonary disease with (acute) lower respiratory infection - Presence of aortocoronary bypass graft - Atherosclerotic heart disease of [place] coronary artery without angina pectoris - Influenza due to other identified influenza virus with the same other identified influenza virus pneumonia - Presence of aortocoronary bypass graft - M[facility] (current) use of aspirin - Atherosclerotic heart disease of [place] coronary artery without angina pectoris - Acute respiratory failure with hypoxia - Presence of cardiac pacemaker - Acute respiratory failure with hypoxia - Presence of right artificial hip joint - Chronic systolic (congestive) heart failure - Type 2 diabetes mellitus without complications - Hypo-osmolality and hyponatremia - Other fdc (current) drug therapy - Presence of right artificial knee joint - Other fdc (current) drug therapy - Acquired absence of other specified parts of digestive tract - Presence of cardiac pacemaker - MCC (current) use of aspirin - Hypo-osmolality and hyponatremia - Chronic systolic (congestive) heart failure - Influenza due to identified novel influenza A virus with pneumonia - Presence of right artificial knee joint - Type 2 diabetes mellitus without complications [id number]
[2022-04-17] MEDS ORDERED: PREDNISONE20 MG PO (14:14)
--- NOTE | 2022-04-19 13:10 | EKG ---
[facility] [address] [place] [address] Signed Sinus rhythm with occasional premature ventricular complexes Left axis deviation Right bundle branch block Inferior infarct (cited on or before 19-APR-2021) Anterolateral infarct (cited on or before 10-OCT-2021) Abnormal ECG When compared with ECG of 31-MAR-2022 14:51, premature atrial complexes are no longer present Confirmed by MATTHIAS HOOD MD ([id number]) on 04/19/2022 1:10:19 PM Electronically Signed By: MATTHIAS HOOD MD 04/19/22 1310 PATIENT NAME: JUNIOR HUMPHREYS Electrocardiogram DATE OF : 36 PHYSICIAN: MATTHIAS HOOD MD REPORT #: [id number] REPORT IS CONFIDENTIAL AND NOT TO BE RELEASED WITHOUT AUTHORIZATION
== END 2022-04-17 14:35 | disposition home or self-care (01) ==
LOC: ED 10:36
DX: J44.1 Chronic obstructive pulmonary disease with (acute) exacerbation (principal); I50.9 Heart failure, unspecified; Z79.899 Other long term (current) drug therapy; Z79.82 Long term (current) use of aspirin; Z79.84 Long term (current) use of oral hypoglycemic drugs; Z79.01 Long term (current) use of anticoagulants; Z20.822 Contact with and (suspected) exposure to COVID-19
CPT/HCPCS: 36415; 71045; 80053; 83880; 85025; 87502; 93005; 93010; 94640; C9803; J1940; J2930; U0003

== ENCOUNTER 2022-05-10 10:53 | Emergency (ER) | payer MEDICARE, OTHER ==
[~2022-05-10] VITALS: Ht 160 cm; Wt 81.7 kg
--- OUTSIDE RECORDS SUMMARY | 2022-05-10 11:01 | XMS ---
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 No recent Security Events currently on file CRITERIA MET - [facility] - 2 Visits in 30 Days - [facility] - 3 Facilities in 90 Days CARE PROVIDERS JOHN AMIN DPM PHONE: [phone] SAMUEL VELÁZQUEZ Internal Medicine Current PHONE: [phone] IZA DEAN Nurse Practitioner Current PHONE: [phone] Dontae Hoffman Bricklayer Tender/Capacity Analyst 07/15/2021-Current PHONE: [phone] LYLE ANTONIO Nurse Practitioner: Family Current PHONE: Unknown Nurse Mitzy GAO PHONE: [phone] LD ESCOBAR [facility] Current PHONE: [phone] [facility] 05/31/2019-[facility] PHONE: [phone] Shaheed has no Care Guidelines for this patient. Care History Medical/Surgical 08/01/2020 [facility] - PATIENT HAS A CAREGIVER AT HOME AND LIVES WITH FAMILY. - PATIENT HAS A ENTERTAINMENT MANAGER DR SUAREZ AT [facility]- LAST SEEN BY ENTERTAINMENT MANAGER 07/22/20. 3 MONTH FOLLOW UP SCHEDULED. - PATIENT REFERRED TO GI SPECIALIST AT [facility]. BUILDING CONSTRUCTION CONTRACTOR TRACEE AT [facility] HAS UPDATED REFERRAL TO URGENT STATUS AND WILL BE CONTACT WITH DEVULCANIZER OPERATOR OFFICE. - PATIENT PCP HAS RECOMMENDED PATIENT DO SMOKING CESSATION DUE TO CURRENT SMOKING HABIT. 08/01/2020 [facility] Care Recommendation: - PLEASE REVIEW PDMP - SHAHEED - USE EXTREME CAUTION IN GIVING NARCOTICS. - Avoid Discharge Narcotic prescriptions if at all possible. Physician discretion. 02/13/2019 [facility] PATIENT- [facility] ELIGIBLE PLEASE REFER [facility]GENT [facility]. [facility] CAN SEE PATIENTS SAME DAY FOR APTS IF PATIENT CALLS FIRST THING IN THE MORNING. E.D. VISIT COUNT (12 MO.) 1 [facility] 1 [facility] 7 [facility]. TOTAL 9 NOTE: Visits indicate total known visits. ED/UCC VISIT TRACKING (12 MO.) 05/10/2022 10:54 [facility] [place] TYPE: Emergency COMPLAINT: - SHORTNESS OF BREATH 05/03/2022 20:56 [facility] [place] TYPE: Emergency DIAGNOSES: - BACK PAIN - Chronic obstructive pulmonary disease with (acute) exacerbation 04/17/2022 10:37 [facility] [place] TYPE: Emergency COMPLAINT: - WEAKNESS, SHAKY DIAGNOSES: - Shortness of breath - Contact with and (suspected) exposure to COVID-19 - long term care phlebotomist (current) use of oral hypoglycemic drugs - Other correction (current) drug therapy - Heart failure, unspecified - long term care phlebotomist (current) use of anticoagulants - long term care phlebotomist (current) use of aspirin - Chronic obstructive pulmonary disease with (acute) exacerbation 03/31/2022 11:50 [facility] [place] TYPE: Emergency COMPLAINT: - DIFFICULTY BREATHING, SWOLLEN LEGS DIAGNOSES: - Heart failure, unspecified - Shortness of breath - long term care phlebotomist (current) use of systemic steroids - Contact with and (suspected) exposure to COVID-19 - Presence of aortocoronary bypass graft - assisted (current) use of aspirin - Nicotine dependence, unspecified, uncomplicated - Chronic obstructive pulmonary disease, unspecified - Presence of cardiac pacemaker 03/05/2022 22:13 [facility] [place] TYPE: Emergency DIAGNOSES: 22795. N/V 31091. N/V COUGH CONFUSION 22640. Nausea with vomiting, unspecified 47938. Heart failure, unspecified 71793. Shock, unspecified 63398. Encephalopathy, unspecified 11/03/2021 16:56 [facility] [place] TYPE: Emergency COMPLAINT: - ABDOMINAL PAIN DIAGNOSES: - Other termite inspector (current) drug therapy - Nicotine dependence, unspecified, uncomplicated - Contact with and (suspected) exposure to COVID-19 - Chronic obstructive pulmonary disease, unspecified - Unspecified abdominal pain - Prediabetes - Elevation of levels of lactic acid dehydrogenase [LDH] - Heart failure, unspecified 10/24/2021 06:38 [facility] [place] TYPE: Emergency COMPLAINT: - SOB 10/10/2021 14:21 [facility] [place] TYPE: Emergency COMPLAINT: - FLU SYMPTOMS, FEVER 08/01/2021 12:[address] [facility] [place] TYPE: Emergency COMPLAINT: - FALL, L SIDE BODY INJURY DIAGNOSES: - Fall (on) (from) other stairs and steps, initial encounter - long term care phlebotomist (current) use of aspirin - Pure hypercholesterolemia, unspecified - Nicotine dependence, unspecified, uncomplicated - Chronic obstructive pulmonary disease, unspecified - Pain in left knee - long term care phlebotomist (current) use of oral hypoglycemic drugs - Unspecified injury of left wrist, hand and finger(s), initial encounter - Other correction (current) drug therapy INPATIENT VISIT TRACKING (12 MO.) 05/03/2022 20:56 [facility] [place] TYPE: Medical Surgical DIAGNOSES: - Acute systolic (congestive) heart failure - Chronic obstructive pulmonary disease with (acute) exacerbation 03/05/2022 22:13 [facility] Asim Mccain [place] TYPE: General Medicine DIAGNOSES: 94555. Shock, unspecified 28532. Encephalopathy, unspecified 61799. Nausea with vomiting, unspecified 47670. Heart failure, unspecified 10/25/2021 11:59 [facility] [place] TYPE: Medical Surgical COMPLAINT: - COPD EXACERBATION DIAGNOSES: - Other correction (current) drug therapy - assisted (current) use of aspirin - Other termite inspector (current) drug therapy - Contact with and [...] with and (suspected) exposure to COVID-19 - long term care phlebotomist (current) use of aspirin - Type 2 diabetes mellitus without complications - Hypertensive heart disease with heart failure - Presence of coronary angioplasty implant and graft - Pure hypercholesterolemia, unspecified - Gastro-esophageal reflux disease without esophagitis - Presence of coronary angioplasty implant and graft 10/10/2021 17:[address] [facility] [place] TYPE: Medical Surgical COMPLAINT: - INFLUENZA A, HYPOXIC RESPIRATORY FAILURE DIAGNOSES: - Type 2 diabetes mellitus without complications - Hypo-osmolality and hyponatremia - Other termite inspector (current) drug therapy - Presence of right artificial knee joint - Other termite inspector (current) drug therapy - Acquired absence of other specified parts of digestive tract - Presence of cardiac pacemaker - long term care phlebotomist (current) use of aspirin - Hypo-osmolality and [...] bypass graft - Atherosclerotic heart disease of [place] coronary artery without angina pectoris - Influenza due to other identified influenza virus with the same other identified influenza virus pneumonia - Presence of aortocoronary bypass graft - long term care phlebotomist (current) use of aspirin - Atherosclerotic heart disease of [place] coronary artery without angina pectoris - Acute respiratory failure with hypoxia - Presence of cardiac pacemaker - Acute respiratory failure with hypoxia - Presence of right artificial hip joint - Chronic systolic (congestive) heart failure [email or web address]
[2022-05-10] MEDS ORDERED: CEFDINIR300 MG PO (11:34)
[2022-05-10] MEDS ORDERED: AZITHROMYCIN250 MG PO (11:34)
[2022-05-10] MEDS ORDERED: ATORVASTATIN CA40 MG PO (11:34)
--- NOTE | 2022-05-11 00:11 | EKG ---
[facility] [address] [place] [address] Signed Sinus tachycardia with occasional premature ventricular complexes Left axis deviation Right bundle branch block Inferior infarct (cited on or before 19-APR-2021) Anterolateral infarct (cited on or before 10-OCT-2021) Abnormal ECG When compared with ECG of 17-APR-2022 11:20, Questionable change in initial forces of Anterior leads Nonspecific T wave abnormality, improved in Lateral leads QT has shortened Confirmed by SHIV LOTT MD ([id number]) on 05/11/2022 12:11:46 AM Electronically Signed By: SHIV LOTT MD 05/11/22 0011 PATIENT NAME: JUNIOR HUMPHREYS Electrocardiogram DATE OF : 36 PHYSICIAN: SHIV LOTT MD REPORT #: [id number] REPORT IS CONFIDENTIAL AND NOT TO BE RELEASED WITHOUT AUTHORIZATION
== END 2022-05-10 15:31 | disposition home or self-care (01) ==
LOC: ED 10:53
DX: I50.9 Heart failure, unspecified (principal); J44.9 Chronic obstructive pulmonary disease, unspecified; F17.200 Nicotine dependence, unspecified, uncomplicated; Z95.0 Presence of cardiac pacemaker; Z79.52 Long term (current) use of systemic steroids; Z79.01 Long term (current) use of anticoagulants; Z79.899 Other long term (current) drug therapy; Z20.822 Contact with and (suspected) exposure to COVID-19
CPT/HCPCS: 36415; 71045; 80053; 83735; 83880; 84484; 85025; 87502; 93005; 93010; 94640; A9270; J1940; U0003

== ENCOUNTER 2022-05-17 13:58 | Emergency (ER) | payer MEDICARE, OTHER ==
[~2022-05-17] VITALS: Ht 160 cm; Wt 81.7 kg
[~2022-05-17 13:58] MED LIST changes: +ATORVASTATIN CA40 MG PO
--- OUTSIDE RECORDS SUMMARY | 2022-05-17 14:06 | XMS ---
PreManage Notification: JUNIOR HUMPHREYS Security Physical Chemist Events No recent Security Events currently on file CRITERIA MET - [facility] - 2 Visits in 30 Days - [facility] - 3 Facilities in 90 Days - 6 ED Visits in 6 Months CARE PROVIDERS JOHN AIMN DPM PHONE: [phone] SAMUEL VELÁZQUEZ Internal Medicine Current PHONE: [phone] IZA DEAN Nurse Practitioner Current PHONE: [phone] Dontae Hoffman Avionics Technician/Lace Stripper 07/15/2021-Current PHONE: [phone] LYLE ANTONIO Nurse Practitioner: Family Current PHONE: Unknown SIMA Nurse Practitioner Evelio MARTINEZSSNAHUN URIAS PHONE: [phone] LD ESCOBAR [facility] Current PHONE: [phone] [facility] [facility] PHONE: [phone] Shaheed has no Care Guidelines for this patient. Care History Medical/Surgical 08/01/2020 [facility] - PATIENT HAS A CAREGIVER AT HOME AND LIVES WITH FAMILY. - PATIENT HAS A RIVER RAFTING GUIDE DR SUAREZ AT [facility]- LAST SEEN BY RIVER RAFTING GUIDE 07/22/20. 3 MONTH FOLLOW UP SCHEDULED. - PATIENT REFERRED TO GI SPECIALIST AT [facility]. PUBLIC SPEAKING TEACHER TRACEE AT [facility] HAS UPDATED REFERRAL TO URGENT STATUS AND WILL BE CONTACT WITH PATENTS EXAMINER OFFICE. - PATIENT PCP HAS RECOMMENDED PATIENT DO SMOKING CESSATION DUE TO CURRENT SMOKING HABIT. 08/01/2020 [facility] Care Recommendation: - PLEASE REVIEW PDMP - SHAHEED - USE EXTREME CAUTION IN GIVING NARCOTICS. - Avoid Discharge Narcotic prescriptions if at all possible. Physician discretion. 02/13/2019 [facility] PLEASE REFER PATIENT TO [facility] FOR NON EMERGENT MEDICAL NEEDS. [facility] CAN SEE PATIENTS SAME DAY FOR APTS IF PATIENT CALLS FIRST THING IN THE MORNING. E.D. VISIT COUNT (12 MO.) [address] [facility] TOTAL 10 NOTE: Visits indicate total known visits. ED/UCC VISIT TRACKING (12 MO.) 05/17/2022 13:59 [facility] [place] TYPE: Emergency COMPLAINT: - SHORTNESS OF BREATH 05/10/2022 10:54 [facility] [place] TYPE: Emergency COMPLAINT: - SHORTNESS OF BREATH DIAGNOSES: - Heart failure, unspecified - Chronic obstructive pulmonary disease, unspecified - Contact with and (suspected) exposure to COVID-19 - skilled nursing (current) use of anticoagulants - Other chcf (current) drug therapy - Presence of cardiac pacemaker - Shortness of breath - Nicotine dependence, unspecified, uncomplicated - skilled nursing (current) use of systemic steroids 05/03/2022 20:56 [facility] [place] TYPE: Emergency DIAGNOSES: - BACK PAIN - Chronic obstructive pulmonary disease with (acute) exacerbation 04/17/2022 10:37 [facility] [place] TYPE: Emergency COMPLAINT: - WEAKNESS, SHAKY DIAGNOSES: - Contact with and (suspected) exposure to COVID-19 - director long term care (current) use of oral hypoglycemic drugs - Other chcf (current) drug therapy - Heart failure, unspecified - director long term care (current) use of anticoagulants - director long term care (current) use of aspirin - Chronic obstructive pulmonary disease with (acute) exacerbation - Shortness of breath 03/31/2022 11:50 [facility] [place] TYPE: Emergency COMPLAINT: - DIFFICULTY BREATHING, SWOLLEN LEGS DIAGNOSES: - Shortness of breath - skilled nursing (current) use of systemic steroids - Contact with and (suspected) exposure to COVID-19 - Presence of aortocoronary bypass graft - skilled nursing (current) use of aspirin - Nicotine dependence, unspecified, uncomplicated - Chronic obstructive pulmonary disease, unspecified - Presence of cardiac pacemaker - Heart failure, unspecified 03[facility]05[facility]2022 [facility] DIAGNOSES: . N/V . N/V COUGH CONFUSION 49092. Heart failure, unspecified 99309. Shock, unspecified 10370. Encephalopathy, unspecified 78590. Nausea with vomiting, unspecified 11/03/2021 16:56 [facility] [place] TYPE: Emergency COMPLAINT: - ABDOMINAL PAIN DIAGNOSES: - Nicotine dependence, unspecified, uncomplicated - Contact with and (suspected) exposure to COVID-19 - Chronic obstructive pulmonary disease, unspecified - Unspecified abdominal pain - Prediabetes - Elevation of levels of lactic acid dehydrogenase [LDH] - Heart failure, unspecified - Other chcf (current) drug therapy 10/24/2021 06:38 [facility] [place] TYPE: Emergency COMPLAINT: - SOB 10/10/2021 14:21 [facility] [place] TYPE: Emergency COMPLAINT: - FLU SYMPTOMS, FEVER 08/01/2021 12:29 [facility] [place] TYPE: Emergency COMPLAINT: - FALL, L SIDE BODY INJURY DIAGNOSES: - skilled nursing (current) use of aspirin - Pure hypercholesterolemia, unspecified - Nicotine dependence, unspecified, uncomplicated - Chronic obstructive pulmonary disease, unspecified - Pain in left knee - skilled nursing (current) use of oral hypoglycemic drugs - Unspecified injury of left wrist, hand and finger(s), initial encounter - Other chcf (current) drug therapy - Fall (on) (from) other stairs and steps, initial encounter INPATIENT VISIT TRACKING (12 MO.) 05/03/2022 20:56 [facility] OR TYPE: Medical Surgical DIAGNOSES: - Acute systolic (congestive) heart failure - Chronic obstructive pulmonary disease with (acute) exacerbation 03/05/2022 22:13 [facility] [place] TYPE: General Medicine DIAGNOSES: . Encephalopathy, unspecified . Nausea with vomiting, unspecified . Heart failure, unspecified . Shock, unspecified 10/25/2021 11:59 [facility] [place] TYPE: Medical Surgical COMPLAINT: - COPD EXACERBATION DIAGNOSES: - Contact with and (suspected) exposure to [...] with and (suspected) exposure to COVID-19 - skilled nursing (current) use of aspirin - Type 2 diabetes mellitus without complications - Hypertensive heart disease with heart failure - Presence of coronary angioplasty implant and graft - Pure hypercholesterolemia, unspecified - Gastro-esophageal reflux disease without esophagitis - Presence of coronary angioplasty implant and graft - Other chcf (current) drug therapy - director long term care (current) use of aspirin - Other marine oil terminal superintendent (current) drug therapy 10/10/2021 17:32 [facility] [place] TYPE: Medical Surgical COMPLAINT: - INFLUENZA A, HYPOXIC RESPIRATORY FAILURE DIAGNOSES: - Other chcf (current) drug therapy - Acquired absence of other specified parts of digestive tract - Presence of cardiac pacemaker - director long term care (current) use of aspirin - Hypo-osmolality and [...] bypass graft - Atherosclerotic heart disease of [place] coronary artery without angina pectoris - Influenza due to other identified influenza virus with the same other identified influenza virus pneumonia - Presence of aortocoronary bypass graft - director long term care (current) use of aspirin - Atherosclerotic heart disease of [place] coronary artery without angina pectoris - Acute respiratory failure with hypoxia - Presence of cardiac pacemaker - Acute respiratory failure with hypoxia - Presence of right artificial hip joint - Chronic systolic (congestive) heart failure - Type 2 diabetes mellitus without complications - Hypo-osmolality and hyponatremia - Other marine oil terminal superintendent (current) drug therapy - Presence of right artificial knee joint [email or web address]
[2022-05-17] MEDS ORDERED: PREDNISONE20 MG PO (17:30)
== END 2022-05-17 18:30 | disposition home or self-care (01) ==
LOC: ED 13:58
DX: I50.9 Heart failure, unspecified (principal); J44.1 Chronic obstructive pulmonary disease with (acute) exacerbation; E78.00 Pure hypercholesterolemia, unspecified; F17.200 Nicotine dependence, unspecified, uncomplicated; Z79.899 Other long term (current) drug therapy; Z79.01 Long term (current) use of anticoagulants
CPT/HCPCS: 36415; 71045; 80053; 83880; 85025; 96374; 99285-25; J2920

== ENCOUNTER 2022-06-23 12:07 | Emergency (ER) | payer MEDICARE, OTHER ==
[~2022-06-23] VITALS: Ht 160 cm; Wt 81.7 kg
--- OUTSIDE RECORDS SUMMARY | 2022-06-23 12:16 | XMS ---
PreManage Notification: JUNIOR HUMPHREYS Security Composition Tile Layer Events No recent Security Events currently on file CRITERIA MET - 6 ED Visits in 6 Months CARE PROVIDERS JOHN AMIN Metal Bonding Assembler Current RENETTA Clark PHONE: [phone] SAMUEL VELÁZQUEZ Internal Medicine Current PHONE: [phone] IZA EDAN Nurse Practitioner Current PHONE: [phone] Dontae Hoffman Appliquer Zigzag/Cardiology Associate 07/15/2021-Current PHONE: [phone] LYLE ANTONIO Nurse Practitioner: Family Current PHONE: Unknown Nurse Mitzy GAO Current HARLAN URIAS PHONE: [phone] LD ESCOBAR [facility] Current PHONE: [phone] [facility] 05/31/2019-[facility] PHONE: [phone] Shaheed has no Care Guidelines for this patient. Care History Medical/Surgical 08/01/2020 [facility] - PATIENT HAS A CAREGIVER AT HOME AND LIVES WITH FAMILY. - PATIENT HAS A LABORATORY MONITOR DR SUAREZ AT [facility]- LAST SEEN BY LABORATORY MONITOR 07/22/20. 3 MONTH FOLLOW UP SCHEDULED. - PATIENT REFERRED TO GI SPECIALIST AT [facility]. DRUM PULLER TRACEE AT [facility] HAS UPDATED REFERRAL TO URGENT STATUS AND WILL BE CONTACT WITH GRIP OFFICE. - PATIENT PCP HAS RECOMMENDED PATIENT DO SMOKING CESSATION DUE TO CURRENT SMOKING HABIT. 08/01/2020 [facility] Care Recommendation: - PLEASE REVIEW PDMP - SHAHEED - USE EXTREME CAUTION IN GIVING NARCOTICS. - Avoid Discharge Narcotic prescriptions if at all possible. Physician discretion. 02/13/2019 [facility] PATIENT- [facility] ELIGIBLE PLEASE REFER PATIENT TO [facility] FOR NON EMERGENT MEDICAL NEEDS. [facility] CAN SEE PATIENTS SAME DAY FOR APTS IF PATIENT CALLS FIRST THING IN THE MORNING. E.D. VISIT COUNT (12 MO.) [address] [facility] TOTAL 11 NOTE: Visits indicate total known visits. ED/UCC VISIT TRACKING (12 MO.) 06/23/2022 12:08 [facility] [place] TYPE: Emergency COMPLAINT: - VOMITING, DEHYDRATED 05/17/2022 13:59 [facility] [place] TYPE: Emergency COMPLAINT: - SHORTNESS OF BREATH DIAGNOSES: - Pure hypercholesterolemia, unspecified - Nicotine dependence, unspecified, uncomplicated - Shortness of breath - Chronic obstructive pulmonary disease with (acute) exacerbation - intermediate school teacher (current) use of anticoagulants - Heart failure, unspecified - Other fci (current) drug therapy 05/10/2022 10:54 [facility] [place] TYPE: Emergency COMPLAINT: - SHORTNESS OF BREATH DIAGNOSES: - Shortness of breath - Nicotine dependence, unspecified, uncomplicated - assisted (current) use of systemic steroids - Heart failure, unspecified - Chronic obstructive pulmonary disease, unspecified - Contact with and (suspected) exposure to COVID-19 - assisted (current) use of anticoagulants - Other lobsterman (current) drug therapy - Presence of cardiac pacemaker 05/03/2022 20:56 [facility] [place] TYPE: Emergency DIAGNOSES: - BACK PAIN - Chronic obstructive pulmonary disease with (acute) exacerbation 04/17/2022 10:37 [facility] [place] TYPE: Emergency COMPLAINT: - WEAKNESS, SHAKY DIAGNOSES: - intermediate school teacher (current) use of aspirin - Chronic obstructive pulmonary disease with (acute) exacerbation - Shortness of breath - Contact with and (suspected) exposure to COVID-19 - assisted (current) use of oral hypoglycemic drugs - Other lobsterman (current) drug therapy - Heart failure, unspecified - assisted (current) use of anticoagulants 03/31/2022 11:[address] [facility] [place] TYPE: Emergency COMPLAINT: - DIFFICULTY BREATHING, SWOLLEN LEGS DIAGNOSES: - Chronic obstructive pulmonary disease, unspecified - Presence of cardiac pacemaker - Heart failure, unspecified - Shortness of breath - assisted (current) use of systemic steroids - Contact with and (suspected) exposure to COVID-19 - Presence of aortocoronary bypass graft - intermediate school teacher (current) use of aspirin - Nicotine dependence, unspecified, uncomplicated 03/05/2022 22:13 [facility] Asim Mccain [place] TYPE: Emergency DIAGNOSES: 56414. N/V . N/V COUGH CONFUSION 35255. Encephalopathy, unspecified 38620. Nausea with vomiting, unspecified 98944. Heart failure, unspecified 63364. Shock, unspecified 11/03/2021 16:56 [facility] [place] TYPE: Emergency COMPLAINT: - ABDOMINAL PAIN DIAGNOSES: - Elevation of levels of lactic acid dehydrogenase [LDH] - Heart failure, unspecified - Other fci (current) drug therapy - Nicotine dependence, unspecified, uncomplicated - Contact with and (suspected) exposure to COVID-19 - Chronic obstructive pulmonary disease, unspecified - Unspecified abdominal pain - Prediabetes 10/24/2021 06:38 [facility] [place] TYPE: Emergency COMPLAINT: - SOB 10/10/2021 14:21 [facility] [place] TYPE: Emergency COMPLAINT: - FLU SYMPTOMS, FEVER 08/01/2021 12:29 [facility] [place] TYPE: Emergency COMPLAINT: - FALL, L SIDE BODY INJURY DIAGNOSES: - Unspecified injury of left wrist, hand and finger(s), initial encounter - Other lobsterman (current) drug therapy - Fall (on) (from) other stairs and steps, initial encounter - intermediate school teacher (current) use of aspirin - Pure hypercholesterolemia, unspecified - Nicotine dependence, unspecified, uncomplicated - Chronic obstructive pulmonary disease, unspecified - Pain in left knee - assisted (current) use of oral hypoglycemic drugs INPATIENT VISIT TRACKING (12 MO.) 05/03/2022 20:56 [facility] [place] TYPE: Medical Surgical DIAGNOSES: - Acute systolic (congestive) heart failure - Chronic obstructive pulmonary disease with (acute) exacerbation [facility]05[facility]2022 [facility] DIAGNOSES: 15622. Shock, unspecified . Encephalopathy, unspecified 84952. Nausea with vomiting, unspecified 27538. Heart failure, unspecified 10/25/2021 11:[address] [facility] [address] [facility] [place] TYPE: Medical Surgical COMPLAINT: - COPD EXACERBATION DIAGNOSES: - intermediate school teacher (current) use of aspirin - Type 2 diabetes mellitus without complications - Hypertensive heart disease with heart failure - Presence of coronary angioplasty implant and graft - Pure hypercholesterolemia, unspecified - Gastro-esophageal reflux disease without esophagitis - Presence of coronary angioplasty implant and graft - Other lobsterman (current) drug therapy - assisted (current) use of aspirin - Other fci (current) drug therapy - Contact with and [...] Contact with and (suspected) exposure to COVID-19 10/10/2021 17:32 [facility] [place] TYPE: Medical Surgical COMPLAINT: - INFLUENZA A, HYPOXIC RESPIRATORY FAILURE DIAGNOSES: - Presence of aortocoronary bypass graft - assisted (current) use of aspirin - Atherosclerotic heart disease of [place] coronary artery without angina pectoris - Acute respiratory failure with hypoxia - Presence of cardiac pacemaker - Acute respiratory failure with hypoxia - Presence of right artificial hip joint - Chronic systolic (congestive) heart failure - Type 2 diabetes mellitus without complications - Hypo-osmolality and hyponatremia - Other lobsterman (current) drug therapy - Presence of right artificial knee joint - Other lobsterman (current) drug therapy - Acquired absence of other specified parts of digestive tract - Presence of cardiac pacemaker - intermediate school teacher (current) use of aspirin - Hypo-osmolality and [...] bypass graft - Atherosclerotic heart disease of [place] coronary artery without angina pectoris - Influenza due to other identified influenza virus with the same other identified influenza virus pneumonia [email or web address]
[2022-06-23] MEDS ORDERED: METOPROLOL SUC100 MG PO (15:03)
[2022-06-23] MEDS ORDERED: CLOPIDOGREL75 MG PO (15:03)
[2022-06-23] MEDS ORDERED: KLOR-CON M2020 MEQ PO (15:03)
[2022-06-23] MEDS ORDERED: ISOSORBIDE MONO30 MG PO (15:03)
[2022-06-23] MEDS ORDERED: FUROSEMIDE80 MG PO (15:03)
== END 2022-06-23 19:32 | disposition home or self-care (01) ==
LOC: ED 12:07
DX: R11.2 Nausea with vomiting, unspecified (principal); N17.9 Acute kidney failure, unspecified; R18.8 Other ascites; J44.9 Chronic obstructive pulmonary disease, unspecified; R73.03 Prediabetes; I50.9 Heart failure, unspecified; F17.200 Nicotine dependence, unspecified, uncomplicated; Z99.81 Dependence on supplemental oxygen; Z79.899 Other long term (current) drug therapy; Z79.01 Long term (current) use of anticoagulants
CPT/HCPCS: 36415; 74176; 80053; 81001; 83690; 85025

== ENCOUNTER 2022-07-14 01:34 | Inpatient (IN) | payer MEDICARE, OTHER ==
[~2022-07-14] VITALS: Ht 160 cm; Wt 81.5 kg
[~2022-07-14 01:34] MED LIST changes: +CLOPIDOGREL75 MG PO; +FUROSEMIDE80 MG PO; +METOPROLOL SUC100 MG PO; +ONDANSETRON ODT4 MG PO
--- OUTSIDE RECORDS SUMMARY | 2022-07-14 01:43 | XMS ---
PreManage Notification: JUNIOR HUMPHREYS Security Head Teacher Events No recent Security Events currently on file CRITERIA MET - 6 ED Visits in 6 Months - [facility] - 2 Visits in 30 Days CARE PROVIDERS -, Justin- Dentist: Transportation Equipment Painter [facility] PHONE: [phone] JOHN AMIN Correspondence Section Supervisorsoila Clark PHONE: [phone] SAMUEL VELÁZQUEZ Internal Medicine Current PHONE: [phone] IZA DEAN Nurse Practitioner Current PHONE: [phone] Dalton Dontae [employer] Worker/Orthopedic Shoes Salesperson 07/15/2021-Current PHONE: [phone] LYLE ANTONIO Nurse Practitioner: Family Current PHONE: Unknown Nurse Mitzy GAO PHONE: [phone] LD ESCOBAR [facility] Current PHONE: [phone] NICOLAS [facility] 05/31/2019-[facility] PHONE: [phone] Shaheed has no Care Guidelines for this patient. Care History Medical/Surgical 08/01/2020 [facility] - PATIENT HAS A CAREGIVER AT HOME AND LIVES WITH FAMILY. - PATIENT HAS A POULTRY RAISER DR SUAREZ AT [facility]- [phone] LAST SEEN BY POULTRY RAISER 07/22/20. 3 MONTH FOLLOW UP SCHEDULED. - PATIENT REFERRED TO GI SPECIALIST AT [facility]. FOOD AND BEVERAGE ORDER CLERK TRACEE AT [facility] HAS UPDATED REFERRAL TO URGENT STATUS AND WILL BE CONTACT WITH CORPORATE BOND TRADER OFFICE. - PATIENT PCP HAS RECOMMENDED PATIENT DO SMOKING CESSATION DUE TO CURRENT SMOKING HABIT. 08/01/2020 [facility] Care Recommendation: - PLEASE REVIEW PDMP - SHAHEDE - USE EXTREME CAUTION IN GIVING NARCOTICS. - Avoid Discharge Narcotic prescriptions if at all possible. Physician discretion. 02/13/2019 [facility] PATIENT- [facility] ELIGIBLE PLEASE REFER PATIENT TO [facility] FOR NON EMERGENT MEDICAL NEEDS. [facility] CAN SEE PATIENTS SAME DAY FOR APTS IF PATIENT CALLS FIRST THING IN THE MORNING. E.D. VISIT COUNT (12 MO.) 1 [facility] [address] TOTAL 13 NOTE: Visits indicate total known visits. ED/UCC VISIT TRACKING (12 MO.) 07/14/2022 01:34 [facility] [place] TYPE: Emergency COMPLAINT: - SOB 07/04/2022 01:20 [facility] [place] TYPE: Emergency COMPLAINT: - WEAKNESS DIAGNOSES: - Shortness of breath - halfway (current) use of anticoagulants - Presence of right artificial hip joint - termination clerk (current) use of systemic steroids - Nicotine dependence, unspecified, uncomplicated - Type 2 diabetes mellitus without complications - Chest pain, unspecified - Hypotension, unspecified - Nausea - Presence of cardiac pacemaker - Presence of aortocoronary bypass graft - Chronic obstructive pulmonary disease, unspecified - Other fdc (current) drug therapy - Heart failure, unspecified 06/23/2022 12:08 [facility] [place] TYPE: Emergency COMPLAINT: - VOMITING, DEHYDRATED DIAGNOSES: - Nicotine dependence, unspecified, uncomplicated - Heart failure, unspecified - Acute kidney failure, unspecified - Chronic obstructive pulmonary disease, unspecified - Prediabetes - halfway (current) use of anticoagulants - Nausea with vomiting, unspecified - Other long chain dyeing machine operator (current) drug therapy - Other ascites - Dependence on supplemental oxygen 05/17/2022 13:59 [facility] [place] TYPE: Emergency COMPLAINT: - SHORTNESS OF BREATH DIAGNOSES: - Pure hypercholesterolemia, unspecified - Nicotine dependence, unspecified, uncomplicated - Shortness of breath - Chronic obstructive pulmonary disease with (acute) exacerbation - termination clerk (current) use of anticoagulants - Heart failure, unspecified - Other long chain dyeing machine operator (current) drug therapy 05/10/2022 10:54 [facility] [place] TYPE: Emergency COMPLAINT: - SHORTNESS OF BREATH DIAGNOSES: - Presence of cardiac pacemaker - Shortness of breath - Nicotine dependence, unspecified, uncomplicated - halfway (current) use of systemic steroids - Heart failure, unspecified - Chronic obstructive pulmonary disease, unspecified - Contact with and (suspected) exposure to COVID-19 - termination clerk (current) use of anticoagulants - Other long chain dyeing machine operator (current) drug therapy 05/03/2022 20:56 [facility] [place] TYPE: Emergency DIAGNOSES: - BACK PAIN - Chronic obstructive pulmonary disease with (acute) exacerbation 04/17/2022 10:[address] [facility] [place] TYPE: Emergency COMPLAINT: - WEAKNESS, SHAKY DIAGNOSES: - halfway (current) use of aspirin - Chronic obstructive pulmonary disease with (acute) exacerbation - Shortness of breath - Contact with and (suspected) exposure to COVID-19 - termination clerk (current) use of oral hypoglycemic drugs - Other long chain dyeing machine operator (current) drug therapy - Heart failure, unspecified - halfway (current) use of anticoagulants 03/31/2022 11:[address] [facility] [place] TYPE: Emergency COMPLAINT: - DIFFICULTY BREATHING, SWOLLEN LEGS DIAGNOSES: - Nicotine dependence, unspecified, uncomplicated - Chronic obstructive pulmonary disease, unspecified - Presence of cardiac pacemaker - Heart failure, unspecified - Shortness of breath - halfway (current) use of systemic steroids - Contact with and (suspected) exposure to COVID-19 - Presence of aortocoronary bypass graft - halfway (current) use of aspirin 03/05/2022 22:13 [facility] [place] TYPE: Emergency DIAGNOSES: 82345. N/V . N/V COUGH CONFUSION 65005. Encephalopathy, unspecified 77074. Nausea with vomiting, unspecified 86365. Heart failure, unspecified 68872. Shock, unspecified 11/03/2021 16:56 [facility] [place] TYPE: Emergency COMPLAINT: - ABDOMINAL PAIN DIAGNOSES: - Elevation of levels of lactic acid dehydrogenase [LDH] - Heart failure, unspecified - Other long chain dyeing machine operator (current) drug therapy - Nicotine dependence, unspecified, [...] FALL, L SIDE BODY INJURY DIAGNOSES: - halfway (current) use of oral hypoglycemic drugs - Unspecified injury of left wrist, hand and finger(s), initial encounter - Other fdc (current) drug therapy - Fall (on) (from) other stairs and steps, initial encounter - termination clerk (current) use of aspirin - Pure hypercholesterolemia, unspecified - Nicotine dependence, unspecified, uncomplicated - Chronic obstructive pulmonary disease, unspecified - Pain in left knee INPATIENT VISIT TRACKING (12 MO.) 05/03/2022 20:56 [facility] [place] TYPE: Medical Surgical DIAGNOSES: - Acute systolic (congestive) heart failure - Chronic obstructive pulmonary disease with (acute) exacerbation [facility] DIAGNOSES: 09868. Shock, unspecified . Encephalopathy, unspecified . Nausea with vomiting, unspecified 84378. Heart failure, unspecified 10/25/2021 11:59 [facility] [place] TYPE: Medical Surgical COMPLAINT: - COPD EXACERBATION DIAGNOSES: - Contact with and (suspected) exposure to COVID-19 - halfway (current) use of aspirin - Type 2 diabetes mellitus without complications - Hypertensive heart disease with heart failure - Presence of coronary angioplasty implant and graft - Pure hypercholesterolemia, unspecified - Gastro-esophageal reflux disease without esophagitis - Presence of coronary angioplasty implant and graft - Other long chain dyeing machine operator (current) drug therapy - termination clerk (current) use of aspirin - Other long chain dyeing machine operator (current) drug therapy - Contact with and [...] infarction - Chronic systolic (congestive) heart failure 10/10/2021 17:32 [facility] [place] TYPE: Medical Surgical COMPLAINT: - INFLUENZA A, HYPOXIC RESPIRATORY FAILURE DIAGNOSES: - Atherosclerotic heart disease of [place] coronary artery without angina pectoris - Influenza due to other identified influenza virus with the same other identified influenza virus pneumonia - Presence of aortocoronary bypass graft - termination clerk (current) use of aspirin - Atherosclerotic heart disease of [place] coronary artery without angina pectoris - Acute respiratory failure with hypoxia - Presence of cardiac pacemaker - Acute respiratory failure with hypoxia - Chronic systolic (congestive) heart failure - Presence of right artificial hip joint - Type 2 diabetes mellitus without complications - Hypo-osmolality and hyponatremia - Presence of right artificial knee joint - Other fdc (current) drug therapy - Other long chain dyeing machine operator (current) drug therapy - Acquired absence of other specified parts of digestive tract - Presence of cardiac pacemaker - termination clerk (current) use of aspirin - Hypo-osmolality and hyponatremia - Chronic systolic (congestive) heart failure - Influenza due to identified novel influenza A virus with pneumonia - Type 2 diabetes mellitus without complications - Presence of right artificial knee joint - Chronic obstructive pulmonary disease with (acute) lower respiratory infection - Acquired absence of other specified parts of digestive tract - Influenza due to other identified influenza virus with the same other identified influenza virus pneumonia - Presence of right artificial hip joint - Chronic obstructive pulmonary disease with (acute) lower respiratory infection - Presence of aortocoronary bypass graft [email or web address]
--- NOTE | 2022-07-14 06:44 | NUR ---
PT FOUND TO BE SOILED AND INCONT. OF URINE. PT CLEANED, AND PLACED IN NEW LISA. PT WITH NO FURTHER NEEDS AT THIS TIME.
--- NOTE | 2022-07-14 08:00 | NUR ---
AWAKE, ASSESSMENT DONE. PATIENT IS ABLE TO ANSWERE QUESTIONS. TALKED WITH PATIENT ABOUT POC FOR THE DAY. NITRO PASTE OFF. PURE PURE WICK IN PLACE, ROUTINE LASIX GIVEN, READY TO SIT UP TO TAKE BREAKFAST. O2 AT 3 L NC DECREASED TO 2 L. POST ANESTHESIA ROOM NURSE HERE TO SEE PATIENT.
--- NOTE | 2022-07-14 09:00 | NUR ---
Pt states she lives with her daughter Cierra, and her great niece, Kasandra is her state paid cg. I confirmed this with Marcie Trejo at [facility]. Pt qualifies for 75 hrs of cg service q 2 weeks. Per [facility] cg is providing 30 hrs per week and Cierra is her natural support. Pt states she has a cane, walker, wc, and shower chair. She is difficult to follow at times as she mixes up names. She becomes annoyed when I repeat questions. CG and daughter provide all care including household task. Pt denies any needs. She denies any needs and states she is happy with her care. Plans on dc to home when medically cleared for DC.
--- NOTE | 2022-07-14 09:00 | NUR ---
TOOK BREAKFAST WELL. DENIES NAUSEA OR PAIN. ROUTINE MEDICATIONS GIVEN.
--- NOTE | 2022-07-14 09:15 | NUR ---
GOYO HELD, BP HAS BEEN BOARDERLINE LOW, GOYO FERRARA, WILL TALK WITH DR. HOOD ABOUT THIS.
[2022-07-14] MEDS ORDERED: OMEPRAZOLE20 MG PO (10:18)
--- NOTE | 2022-07-14 10:30 | NUR ---
DR. HOOD HERE TO SEE PATIENT. PATIENT STATES SHE IS FEELING BETTER.
--- NOTE | 2022-07-14 12:00 | NUR ---
ASSESSMENT UNCHANGED. EATING LUNCH. PATIENT IS W/O REQUEST. HAS BEEN WATCHING TV, HOB ELEVATED.
[2022-07-14] MEDS ORDERED: IPRAT-ALBUT 0.5-3 ML INH (12:02)
[2022-07-14] MEDS ORDERED: TYLENOL325 MG PO (12:03)
[2022-07-14] MEDS ORDERED: BENZONATATE100 MG PO (12:03)
--- NOTE | 2022-07-14 12:04 | NUR ---
MED REC COMPLETE
--- NOTE | 2022-07-14 13:20 | NUR ---
TRANSFER ORDERS TO MED-SURG RECIEVED. SUPERVISIOR AWARE. TOOK LUNCH FAIR.
--- NOTE | 2022-07-14 13:40 | NUR ---
WILL BE TRANSFERRED TO MED-SURG THIS AFTERNOON. ECHO TO BE DONE AT 1400 TODAY.
--- NOTE | 2022-07-14 13:59 | NUR ---
PATIENT AWAKE IN BED, WATCHING TV. BEDBATH PROVIDED, CLEAN GOWN, LINEN, AND NEW PUREWICK PROVIDED. CALL LIGHT IN EASY REACH, NO OTHER NEEDS AT THIS TIME
--- NOTE | 2022-07-14 14:00 | NUR ---
REPORT TO JIMMY ON MED-SURG.
--- NOTE | 2022-07-14 14:10 | NUR ---
TO MED SURG VIA BED.
--- NOTE | 2022-07-14 14:48 | NUR ---
PT TO FLOOR VIA BED WITH ONUR OSBORNE. PT AWAKE AND TALKATIVE. HAS PUREWICK IN PLACE. VS STABLE. ORIENTED TO CALL LIGHT, TV REMOTE, BED AND LIGHTS. PT VERBALIZED UNDERSTANDING. WATER FILLED. ON 2LNC WHICH IS HER BASELINE AT HOME. SOB WITH TALKING.
--- NOTE | 2022-07-14 16:30 | NUR ---
PT IN BED WATCHING TV. HAD A SMALL COUGHING SPELL BUT QUICKLY RECOVERED. PT SATS WNL. REMAINS ON 2LNC. DENIES CONCERNS ATT. ASKED WHEN DINNER WOULD ARRIVE.
--- NOTE | 2022-07-14 17:58 | NUR ---
PT SITTING IN BED HAVING JUST FINISHED DINNER. ATE MOST OF IT. STATES SHE IS HOPING OT GO HOME TOMORROW. ADMINIS SCHEDULED MED. DENIES PAIN OR CONCERNS. COUGHING UP SMALL AMT WHITE SPUTUM.
--- NOTE | 2022-07-14 21:15 | NUR ---
PT CALLED, REQUESTED WARM BLANKET, WATER, NO ICE, PREFERED TAP WATER. SNACK JELLO, BED ALARM PLACED. LIGHTS OFF.
--- NOTE | 2022-07-14 22:36 | NUR ---
PT IN BED WATCHING TV. RESP EVEN ET UNLABORED. PT ON O2 @ 2L NC USES O2 AT HOME. PT INCONTINENT WITH PERWICK IN PLACE. PT HAS MEIPLEX TO SACRUM. PT UNSTEADY ON FEET USES BEDSIDE COMMODE X 1 ASSIST. PT HAS STRONG PRODUCTIVE COUGH. PT ON AIRBORNE PRECAUTIONS COVID+. PT HAS NO ACUTE DISTRESS NOTED AT THIS TIME.
--- NOTE | 2022-07-15 02:09 | NUR ---
PT RESTING QUIETLY. RESP EVEN ET UNLABORED O2 @ 2L NC. REMAINS ON AIRBORNE ISOLATION DUE TO COVID. NO ACUTE DISTRESS NOTED AT THIS TIME.
--- NOTE | 2022-07-15 06:32 | NUR ---
PT CALLED OUT STATING SHE NEEDED HELP WANTING TO SIT UP BUT SIDE RAIL WAS UP. PT C/O SOB RT CALLED PT GIVEN PRN BREATHING TX. NOTIFIED PT C/O SOB WITH CRACKLES AT BASES OF LOWER LUNG. ORDERED NOW DOSE LASIX 20MG IV. PT GIVEN MEDICATION AND STATED SHE FELT MUCH BETTER AFTER RECEIVING BREATHING TX AND GETTING SETTLED BACK IN BED. PT ON 02 @ 2L NC SAT 98%. PT PERWICH CHANGED AND PERICARE PROVIDED.
--- NOTE | 2022-07-15 07:07 | NUR ---
Report from ONUR Bella. Patient resting in bed, eyes closed with respirations even and unlabored. Oxygen remains in place. Allowed to rest at this time. Call light in reach, bed alarm activated.
--- NOTE | 2022-07-15 10:05 | NUR ---
Patient resting in bed. Call light in reach. Respirations even and unlabored. Allowed to rest at this time. Purewick in place. Oxygen remains in place at this time.
--- NOTE | 2022-07-15 11:12 | NUR ---
Oxygen off patient. O2 sats 94-100% on room air, at rest. States she was discharged from hospital "last time, " with oxygen but "it ran out." Left on room air at this time. pulse ox in place, will continue to monitor. States she is only short of breath with exertion.
--- NOTE | 2022-07-15 13:03 | NUR ---
PATIENT ALERT IN BED. DENIES NEEDS AT THIS TIME. CALL LIGHT IN REACH, BED RAILS UP AND BED ALARM ACTIVATED. REMAINS ON ROOM AIR. O2 SATS 94%, NO RESPIRATORY DISTRESS NOTED.
--- NOTE | 2022-07-15 13:55 | NUR ---
PT ON PRECAUTIONS, WILL FOLLOW
--- NOTE | 2022-07-15 14:22 | NUR ---
DR. HOOD UPDATED ON PATIENT REMAINING ON ROOM AIR THIS AM. CONTINUES ON ROOM AIR WITHOUT SIGNS OF RESPIRATORY DISTRESS.
--- NOTE | 2022-07-15 15:01 | NUR ---
AWAKE IN BED. CONTINUES WITHOUT SIGNS OF RESPIRATORY DISTRESS. RESPIRATIONS EVEN AND UNLABORED. REMAINS ON ROOM AIR AT THIS TIME. CALL LIGHT IN REACH. PUREWICK SUCTION TUBING RECONNECTED AFTER WORKING WITH PT. DENIES OTHER NEEDS AT THIS TIME.
--- NOTE | 2022-07-15 16:40 | EKG ---
[facility] [address] [address] [place] [address] Signed Normal sinus rhythm Right ventricular hypertrophy with repolarization abnormality Nonspecific ST abnormality Abnormal ECG When compared with ECG of 04-JUL-2022 04:02, fusion complexes are no longer present Right bundle branch block is no longer present Criteria for Inferior infarct are no longer present Confirmed by MATTHIAS HOOD MD ([id number]) on 07/15/2022 4:40:54 PM Electronically Signed By: MATTHIAS HOOD MD 07/15/22 1640 PATIENT NAME: HUMPHREYSJUNIOR ROSE Electrocardiogram DATE OF : 36 PHYSICIAN: MATTHIAS HOOD MD REPORT #: [id number] REPORT IS CONFIDENTIAL AND NOT TO BE RELEASED WITHOUT AUTHORIZATION
--- NOTE | 2022-07-15 17:19 | NUR ---
Alert all day today. Incontinent of urine, cleo changed this afternoon. Takes oral medications without difficulty. Good appetite. On room air today with O2 sats mid 90's throughout the day. Worked with PT this afternoon. IV lasix administered this afternoon with PO potassium this evening. Low BP, asymptomatic. Does bedcome short of breath with exertion at times.
--- NOTE | 2022-07-15 17:46 | NUR ---
PT AT EDGE OF BED. VITALS AND IS AND OS COMPLETE. PT PUREWIBRUCE OK. WATER REFILLED. NO NEEDS. CALL LIGHT WITHIN REACH.
--- NOTE | 2022-07-15 19:30 | NUR ---
RECEIVED BEDSIDE REPORT FORM OFFGOING SHIFT, HOURLY ROUNDING INITIATED.
--- NOTE | 2022-07-15 20:39 | NUR ---
IN PT ROOM FOR MEDICATION ADMINISTRATION. PT ASSESSMENT AND VS ALSO COMPLETED AT THIS TIME. PT RESTING COMFORTABLY, FOUND TO BE INCONTINENT, ASSISTED WITH CHANGING CLOTHING AND BEDDING. PT CALL LIGHT IN REACH, NO COMPLAINT OF PAIN.
--- NOTE | 2022-07-15 23:03 | NUR ---
IN PT ROOM FOR ROUNDING. PT RESTING WITH EYES CLOSD, BREATHING EVEN AND UNLABORED, NO INDICATION OF PAIN OR DISCOMFORT PT CALL LIGHT IN REACH.
--- NOTE | 2022-07-16 00:39 | NUR ---
IN PT ROOM FOR ROUNDING. PT RESTING ON SIDE EYES CLOSED, BREATHING EVEN AND UNLABORED WITH NO INDICATION OF PAIN OR DISCOMFORT. PT CALL LIGHT IS IN REACH.
--- NOTE | 2022-07-16 02:50 | NUR ---
BED ALARM SOUNDING. PT WANTING TO SIT ON EDGE OF BED. FRESH ICE WATER GIVEN. SL MOIST COUGH, NON PROD. COMPLAINS COUGH DRYING UP, HURTS TO COUGH. PRN BREATHING TX GIVEN.
--- NOTE | 2022-07-16 04:24 | NUR ---
In pt room for rounding, responding to call light. pt assisted with laying in bed, pericare and brief changed. pt repositioned in bed, pt breathing even and unlabored, no indication or complaint of pain, call light in reach.
--- NOTE | 2022-07-16 06:25 | NUR ---
IN TO ANSWER CALL LIGHT. PT REQUESTING WATER. WATER PROVIDED. PT REQUESTING COFFEE. COFFEE PROVIDED. ONUR FLORES ASKED THIS RN TO ADMINISTER MEDICATION. MEDICATION ADMINISTERED, SEE MAR. PT TAKES PO MEDICATION WITH NO ISSUES. PTs PHONE RINGS, HANDED PT PHONE. NO OTHER NEEDS FROM THIS RN AT THIS TIME. CALL LIGHT IN REACH.
--- NOTE | 2022-07-16 07:34 | NUR ---
report received from night rn - pt resting on edge of bed, covid percautions in place. call light at side.
--- NOTE | 2022-07-16 09:15 | NUR ---
RN IN ROOM TO ASSESS PT - PT RESTING IN BED ON SIDE WITH EYES CLOSED. SPO2 STABLE ON 1L NC WHILE SLEEPING. PT REPORTS FEELING BETTER TODAY. SIDE PANEL PADDER REPORTS AM CARES COMPLETE AND BREAKFAST EATEN WITHOUT DIFFICULTY. SCHEDULED MEDS ADMINISTERED. CALL LIGHT AT SIDE.
--- NOTE | 2022-07-16 11:07 | NUR ---
PT CALLED FOR A JUICE. OJ WAS GIVEN DUE TO NO SODIUM. PT REQUESTED TO SIT AT EDGE OF BED TO DRINK. SHE WAS ABLE TO SIT UP ON HER OWN W/O ASSISTANCE. O2 SUSTAINED 94-96% W/ACTIVITY. IN GOOD SPIRITS, WATCHING TV, PERSONAL ITEMS ON TABLE IN FRONT OF HER WITH CALL LIGHT IN REACH.
--- NOTE | 2022-07-16 11:45 | NUR ---
RN IN ROOM TO ANSWER CALL LIGHT - FAMILY IN ROOM AND REQUEST BATHING SUPPLIES TO PROVIDE PT BED BATH. PT SITTING AT BEDSIDE ON 1L O2 WITH ADEQUATE SPO2.
[2022-07-16] MEDS ORDERED: NICOTINE PATCH1 EACH TD (12:08)
[2022-07-16] MEDS ORDERED: METOPROLOL SUCC25 MG PO (12:09)
[2022-07-16] MEDS ORDERED: TORSEMIDE10 MG PO (12:10)
--- NOTE | 2022-07-16 12:32 | NUR ---
ORDER RECVD FOR HOME HEALTH PT/OT THE PATIENT IS BEING DISCHARGED TODAY. PATIENTS DAUGHTER REQUEST REFERRAL BE SENT TO [facility]. ORDER SIGNED AND CHART FAXED TO [facility].
--- NOTE | 2022-07-16 12:42 | NUR ---
GETTING PT READY TO D/C. JYOTHI CARE, NEW BRIEF, CLOTHES. VITALS/I&0'S TAKEN/DOCUMENTED. PT UP IN CHAIR EATING LUNCH. IV TAKEN OUT BY THIS CNA2. DAUGHTER IN ROOM WAITING TO D/C.
== END 2022-07-16 13:05 | disposition home health service (06) | DRG 291 ==
LOC: ED 01:34 → CCU 02:56 → MS 02:56
PROVIDERS: ADMIT Internal Medicine; ATTEND Internal Medicine
DX: I50.23 Acute on chronic systolic (congestive) heart failure (principal); U07.1 COVID-19; J96.11 Chronic respiratory failure with hypoxia; Z66 Do not resuscitate; I25.10 Atherosclerotic heart disease of native coronary artery without angina pectoris; J41.1 Mucopurulent chronic bronchitis; E78.00 Pure hypercholesterolemia, unspecified; Z96.641 Presence of right artificial hip joint; Z96.651 Presence of right artificial knee joint; F17.210 Nicotine dependence, cigarettes, uncomplicated; Z90.49 Acquired absence of other specified parts of digestive tract; Z95.0 Presence of cardiac pacemaker; Z95.1 Presence of aortocoronary bypass graft; Z99.81 Dependence on supplemental oxygen; Z79.02 Long term (current) use of antithrombotics/antiplatelets; Z79.899 Other long term (current) drug therapy
CPT/HCPCS: 36415; 71045; 80048; 80053; 82803; 83880; 84484; 85025; 87502; 93005; 93010; 93306; 94640; 94760; 97162; A9270; J1940; U0003

== ENCOUNTER 2022-08-16 16:35 | Inpatient (IN) | payer MEDICARE, OTHER ==
[~2022-08-16] VITALS: Ht 160 cm; Wt 84.5 kg
[~2022-08-16 16:35] MED LIST changes: +BENZONATATE100 MG PO; +NICOTINE PATCH1 EACH TD; +TORSEMIDE10 MG PO; +TYLENOL325 MG PO
--- OUTSIDE RECORDS SUMMARY | 2022-08-16 16:42 | XMS ---
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 - 2 Visits in 30 Days - 6 ED Visits in 6 Months CARE PROVIDERS -, Justin- Dentist: Production Tool Engineer [facility] PHONE: [phone] JOHN AMIN Grating Machine Operatorsoila Clark PHONE: [phone] SAMUEL VELÁZQUEZ Internal Medicine Current PHONE: [phone] IZA DEAN Nurse Practitioner Current PHONE: [phone] Dalton Dontae Manager Hvac/Licensed Pesticide Applicator 07/15/2022-Current PHONE: [phone] LYLE ANTONIO Nurse Practitioner: Family Current PHONE: Unknown Nurse Mitzy GAO PHONE: [phone] LD ESCOBAR [facility] Current PHONE: [phone] NICOLAS [facility] 05/31/2019-[facility] PHONE: [phone] Suhas has no Care Guidelines for this patient. Care History Medical/Surgical 08/01/2020 [facility] - PATIENT HAS A CAREGIVER AT HOME AND LIVES WITH FAMILY. - PATIENT HAS A WAIST PRESSER DR SUAREZ AT [facility]- LAST SEEN BY WAIST PRESSER 07/22/20. 3 MONTH FOLLOW UP SCHEDULED. - PATIENT REFERRED TO GI SPECIALIST AT [facility]. INVOICE MACHINE OPERATOR TRACEE AT [facility] HAS UPDATED REFERRAL TO URGENT STATUS AND WILL BE CONTACT WITH [facility] HELPER OFFICE. - PATIENT PCP HAS RECOMMENDED PATIENT DO SMOKING CESSATION DUE TO CURRENT SMOKING HABIT. 08/01/2020 [facility] Care Recommendation: - PLEASE REVIEW PDMP - SUHAS - USE EXTREME CAUTION IN GIVING NARCOTICS. - Avoid Discharge Narcotic prescriptions if at all possible. Physician discretion. 02/13/2019 [facility] PATIENT- [facility] ELIGIBLE PLEASE REFER PATIENT TO [facility] FOR NON EMERGENT MEDICAL NEEDS. [facility] CAN SEE PATIENTS SAME DAY FOR APTS IF PATIENT CALLS FIRST THING IN THE MORNING. E.D. VISIT COUNT (12 MO.) 1 [facility] [address] 12 [facility] TOTAL 14 NOTE: Visits indicate total known visits. 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 - Contact with and (suspected) exposure to COVID-19 07/14/2022 01:34 [facility] [place] TYPE: Emergency COMPLAINT: - SOB 07/04/2022 01:20 [facility] [place] TYPE: Emergency COMPLAINT: - WEAKNESS DIAGNOSES: - Hypotension, unspecified - Nausea - Presence of cardiac pacemaker - Presence of aortocoronary bypass graft - Chronic obstructive pulmonary disease, unspecified - Other senior care (current) drug therapy - Heart failure, unspecified - Shortness of breath - intermediate (current) use of anticoagulants - Presence of right artificial hip joint - termination clerk (current) use of systemic steroids - Nicotine dependence, unspecified, uncomplicated - Type 2 diabetes mellitus without complications - Chest pain, unspecified 06/23/2022 12:08 [facility] [place] TYPE: Emergency COMPLAINT: - VOMITING, DEHYDRATED DIAGNOSES: - intermediate (current) use of anticoagulants - Nausea with vomiting, unspecified - Other senior care (current) drug therapy - Other ascites - Dependence on supplemental oxygen - Nicotine dependence, unspecified, uncomplicated - Heart failure, unspecified - Acute kidney failure, unspecified - Chronic obstructive pulmonary disease, unspecified - Prediabetes 05/17/2022 13:59 [facility] [place] TYPE: Emergency COMPLAINT: - SHORTNESS OF BREATH DIAGNOSES: - Chronic obstructive pulmonary disease with (acute) exacerbation - termination clerk (current) use of anticoagulants - Heart failure, unspecified - Other senior care (current) drug therapy - Pure hypercholesterolemia, unspecified - Nicotine dependence, unspecified, uncomplicated - Shortness of breath 05/10/2022 10:54 [facility] [place] TYPE: Emergency COMPLAINT: - SHORTNESS OF BREATH DIAGNOSES: - Heart failure, unspecified - Chronic obstructive pulmonary disease, unspecified - Contact with and (suspected) exposure to COVID-19 - intermediate (current) use of anticoagulants - Other senior care (current) drug therapy - Presence of cardiac pacemaker - Shortness of breath - Nicotine dependence, unspecified, uncomplicated - termination clerk (current) use of systemic steroids 05/03/2022 20:56 [facility] [place] TYPE: Emergency DIAGNOSES: - BACK PAIN - Chronic obstructive pulmonary disease with (acute) exacerbation 04/17/2022 10:37 [facility] [place] TYPE: Emergency COMPLAINT: - WEAKNESS, SHAKY DIAGNOSES: - Contact with and (suspected) exposure to COVID-19 - intermediate (current) use of oral hypoglycemic drugs - Other laborer marine terminal (current) drug therapy - Heart failure, unspecified - intermediate (current) use of anticoagulants - intermediate (current) use of aspirin - Chronic obstructive pulmonary disease with (acute) exacerbation - Shortness of breath 03/31/2022 11:50 [facility] [place] TYPE: Emergency COMPLAINT: - DIFFICULTY BREATHING, SWOLLEN LEGS DIAGNOSES: - Shortness of breath - termination clerk (current) use of systemic steroids - Contact with and (suspected) exposure to COVID-19 - Presence of aortocoronary bypass graft - intermediate (current) use of aspirin - Nicotine dependence, unspecified, uncomplicated - Chronic obstructive pulmonary disease, unspecified - Presence of cardiac pacemaker - Heart failure, unspecified [facility] 22[facility] DIAGNOSES: 88884. N/V 92366. N/V COUGH CONFUSION . Heart failure, unspecified . Shock, unspecified . Encephalopathy, unspecified . Nausea with vomiting, unspecified 11/03/2021 16:56 [facility] [place] TYPE: Emergency COMPLAINT: - ABDOMINAL PAIN DIAGNOSES: - Nicotine dependence, unspecified, uncomplicated - Contact with and (suspected) exposure to COVID-19 - Chronic obstructive pulmonary disease, unspecified - Unspecified abdominal pain - Prediabetes - Elevation of levels of lactic acid dehydrogenase [LDH] - Heart failure, unspecified - Other laborer marine terminal (current) drug therapy 10/24/2021 06:38 [facility] [place] TYPE: Emergency COMPLAINT: - SOB 10/10/2021 14:21 [facility] [place] TYPE: Emergency COMPLAINT: - FLU SYMPTOMS, FEVER INPATIENT VISIT TRACKING (12 MO.) 07/14/2022 02:56 [facility] [place] TYPE: Medical Surgical COMPLAINT: - CHF EXAC,COVID 19 DIAGNOSES: - intermediate (current) use of antithrombotics/antiplatelets - Presence of aortocoronary bypass graft - Acute on chronic systolic (congestive) heart failure - 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 - Mucopurulent chronic bronchitis - Nicotine dependence, cigarettes, uncomplicated - Acquired absence of other specified parts of digestive tract - Do not resuscitate - Mucopurulent chronic bronchitis - Pure hypercholesterolemia, unspecified - Dependence on supplemental oxygen - Pure hypercholesterolemia, unspecified - 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 - Presence of aortocoronary bypass graft - termination clerk (current) use of antithrombotics/antiplatelets - Presence of cardiac pacemaker - Other laborer marine terminal (current) drug therapy - Acquired absence of other specified parts of digestive tract - Presence of right artificial hip joint - Nicotine dependence, cigarettes, uncomplicated - Chronic respiratory failure with hypoxia - Chronic respiratory failure with hypoxia - Presence of right artificial knee joint - Do not resuscitate - Presence of right artificial hip joint - Dependence on supplemental oxygen - Presence of right artificial knee joint - COVID-19 - COVID-19 - Presence of cardiac pacemaker - Other laborer marine terminal (current) drug therapy 05/03/2022 20:56 [facility] [place] TYPE: Medical Surgical DIAGNOSES: - Acute systolic (congestive) heart failure - Chronic obstructive pulmonary disease with (acute) exacerbation 03/05/2022 22:13 [facility] DIAGNOSES: . Encephalopathy, [...] with and (suspected) exposure to COVID-19 - intermediate (current) use of aspirin - Type 2 diabetes mellitus without complications - Hypertensive heart disease with heart failure - Presence of coronary angioplasty implant and graft - Pure hypercholesterolemia, unspecified - Gastro-esophageal reflux disease without esophagitis - Presence of coronary angioplasty implant and graft - Other laborer marine terminal (current) drug therapy - intermediate (current) use of aspirin - Other laborer marine terminal (current) drug therapy 10/10/2021 17:32 [facility] [place] TYPE: Medical Surgical COMPLAINT: - INFLUENZA A, HYPOXIC RESPIRATORY FAILURE DIAGNOSES: - Other laborer marine terminal (current) drug therapy - Acquired absence of [...] bypass graft - 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 - Influenza due to other identified influenza virus with the same other identified influenza virus pneumonia - Presence of aortocoronary bypass graft - termination clerk (current) use of aspirin - 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
[2022-08-16] MEDS ORDERED: TORSEMIDE20 MG PO (16:47)
--- NOTE | 2022-08-16 21:32 | NUR ---
pt ARRIVES FROM ER ON RA. ASSISTED pt TO TRANSFER TO HOSPITAL BED WITH DRAWSHEET. pt UNABLE TO SLIDE SELF. BED WEIGHT pt STATES TOO WEAK TO STAND "MY KNEES GIVE OUT". TURNER PLACED WITH RN JUDITH ASSIST. STERILE TECNIQUE. CONCENTRATED URINE RETURNED. SCHEDULED LASIX AND MEDICATIONS ADMINISTERED. ASSESSMENT COMPLETE. LUNG SOUNDS COARSE, WHEEZES AUSCULTATED THROUGHOUT. REDNESS NOTED UNDER PANNUS AND ON ABDOMEN. SKIN GROSSLY INTACT. 2+ PITTING EDEMA BLE. CALL LIGHT IN REACH. BED ALARM ON FOR SAFETY. YOGURT PROVIDED. pt WITH TOP DENTURES ONLY.
--- NOTE | 2022-08-16 21:45 | NUR ---
PT USED CALL LIGHT, REQUESTED SOMETHING HOT. OFFERED BROTH, ACCEPTED SODIUM FREE CHICKEN BROTH. ADDED ICE, PT STATED THAT BROTH WAS JUST RIGHT
--- NOTE | 2022-08-16 22:00 | NUR ---
RECEIVED PHONE CALL FROM PT DAUGHTER LINNETTE Meehan. DAUGHTER WANTED UPDATE, GIVEN. STATES THAT MOM HAD BEEN MORE CONFUSED LATELY. DID STATE THE FOLLOWING: PT AMBULATED "13 FEET" TO BATHROOM WITH FWW TODAY. ATE MASHED POTATOES, AT 1700, DID NOT DRINK ANYTHING TODAY; DID NOT TAKE HER MEDICATIONS TODAY, BUT SAID MEDICATIONS WERE TAKEN "YESTERDAY". DOES NOT DO ANY BLOOD SUGARS, NEVER WEIGHS SELF, PT DOESN'T EAT ALOT HARD TO "CHEW" SO GETS SOFT FOODS. COMPLAINED OF "DIZZY" WHEN UP TODAY PER DAUGHTER. ASKED ABOUT THE DEFIBRILLATOR BATTERY, DAUGHTER STATED THE BATTERY WAS "CHANGED JUNE 30, THIS YEAR". LINNETTE, DAUGHTER STATED THAT"FATHER MAKSIM" WILL BE HERE TO SEE PT AT 0900 IN AM, PT IS BAPTISM.
--- NOTE | 2022-08-16 22:08 | NUR ---
PHONE CALL FROM PATIENTS DAUGHTER TRANSFERRED TO ROOM. pt HANDED PHONE AND TALKING TO DAUGHTER.
--- NOTE | 2022-08-16 23:01 | NUR ---
BED ALARM SOUNDING. pt TRYING TO GET UP TO SIDE OF BED TO SPIT SPUTUM OUT INTO EMESIS BAG. pt STATES "I FORGOT" WHEN HEARS ALARM SOUNDING. BACK IN BED. SCHEDULED NEB TREATMENT ADMINISTERED BY RN. CALL LIGHT IN REACH. BED ALARM ON.
--- NOTE | 2022-08-16 23:09 | NUR ---
BREATHING TREATMENT COMPLETE. pt RESTING IN BED WITH EYES CLOSED. BREATHING EQUAL AND UNLABORED. NO DISTRESS NOTED.
--- NOTE | 2022-08-17 02:31 | NUR ---
pt UP TO SIDE OF BED, COMPLAINS OF SHORTNESS OF BREATH. ASSESSMENT COMPLETE. WHEEZES AUSCULTATED THROUGHOUT LUNG LOBES. SPO2 88-90%. 1L OXYGEN BY NC APPLIED. RT NOTIFIED AND IN ROOM TO EVAL pt. CALL LIGHT IN REACH. BED ALARM ON.
--- NOTE | 2022-08-17 04:42 | NUR ---
PATIENT RESTING IN BED WITH 1L OXYGEN BY NC IN PLACE. RR 20. EYES CLOSED. BED ALARM ON.
--- NOTE | 2022-08-17 06:22 | NUR ---
CALL LIGHT ANSWERED. pt SITTING UP AT SIDE OF BED, COUGHING. PRN MEDICATION ADMINISTERED. COFFEE PROVIDED. pt EDUCATED ON FLUID RESTRICTION. VSS. CALL LIGHT AND PERSONAL SUPPLIES IN REACH. TURNER EMPTIED. BED ALARM ON FOR SAFETY.
--- NOTE | 2022-08-17 07:35 | NUR ---
RECEIVED REPORT FROM HOSPITALIST NOCTURNIST PHYSICIAN NURSE ANDERS. PATIENT WAS SITTING ON THE SIDE OF THE BED BUT WANTED TO GO BACK TO BED. PATIENT MOVED BACK TO BED, RESTING ON HER RIGHT SIDE, FLUIDS RUNNING, PATIENT ON 1L OF OXYGEN THAT WAS PLACED DURING THE HOSPITALIST NOCTURNIST PHYSICIAN. PATIENT HAS A PILLOW BETWEEN HER KNEES AND COVERED UP WITH HER BLANKETS TO TAKE A REST. CALL LIGHT WITHIN REACH, PATIENT ADVISED HOW TO USE IT. BED ALARM ON. THIS NURSE WILL GO GET A WALKER PATIENT USES A WALKER AT HOME.
--- NOTE | 2022-08-17 08:41 | NUR ---
PATIENT UP TO THE CHAIR FOR BREAKFAST. PATIENT ONLY AT 10% AND STATES SHE NEVER EAT MUCH AT HOME. THIS NURS NOTICED PATIENT HAD A FULL MILK AND CUP OF COFFEE ON HER PLATE. PATIENT ON 250CC FLUID RESTRICTION FOR BREAKFAST. COFFEE WAS REMOVED AND PATIENT DIDNT DRINK ALL OF HER MILK. CHARGE NURSE ADVISED AND CALLED DOWN TO MAKE SURE KITCHEN WAS AWARE. OUR ORDER STATED SHE WAS ON FLUID RESTRICTIONS BUT WAS NOT SHOWING TO THEM. NO ORDER WAS GIVEN TO KITCHEN AND THEY ARE AWARE NOW. PATIENT HAS HER 300CC OF FREE WATER IN ROOM NOW. PATIENT GIVEN MORNING MEDICATIONS INCLEAING HER LASIX IV. IV FLUSHED WITH NS, NO COMPLICTIONS. RESPIRATORY THERAPY IN ROOM NOW GIVING NEBULIZER TREATMENTS.
--- NOTE | 2022-08-17 09:37 | NUR ---
DURING MORNING ASSESSMENT PATIENT HAD TURNER CARE DONE, AND DESENEX POWDER WAS APPLIED TO THE PANNUS AREA. PATIENT HAD A BUNCH OF MOISTURE LOCKED IN THERE AND REDDNESS. AREA WIPED DOWN, DRIED AND POWDER APPLIED. AFTER PATIENT CARE WAS DONE FAMILY AND FRIENDS IN TO VISIT. PATIENT HAS NC ON AND SPOT CHECK WAS AT 94% PATIENT WAS GIVEN COUGH SYRUP WELL. PATIENT COUGHING UP THICK CLEAR MUCOUS.
--- NOTE | 2022-08-17 10:39 | NUR ---
THIS NURSE CONTACTED NURSING PUNCH BOX TENDER SOFYA AT [facility] AND SCHEDULED PATIENT FOR FOLLOW UP WITH HER PCP ON August AT 0830 IN THE MORNING.
--- NOTE | 2022-08-17 10:40 | NUR ---
PT ASSISTED TO CHAIR, 1PA WITH FWW. PROVIDED WITH WARM BLANKET. PT DENIES OTHER NEEDS AT THIS TIME, CALL LIGHT WITHIN REACH.
--- NOTE | 2022-08-17 11:48 | NUR ---
ATTEMPTED TO ASSESS PATIENT. PATIENT SLEEPING, WILL RETURN AFTER LUNCH.
--- NOTE | 2022-08-17 12:51 | NUR ---
PT RESTING ON R SIDE, WAKENED TO THE SOUND OF MY VOICE. PT PLEASANT, CHEERY AND REQUESTED VISIT FROM TODAY. WILL NOTIFY FR BRANDT. JAMAAL ORTIZ.
--- NOTE | 2022-08-17 13:32 | NUR ---
PATIENT MOVED BACK TO THE BED FROM THE CHAIR. PATIENT GIVEN HER IV LASIX AND TURNER WAS REMOVED PER . PATIENT EDUCATED THAT TURNER IS REMOVED AND SHE WILL NEED TO USE HER CALL LIGHT TO HAVE US COME HELP HER TO THE RESTROOM. PATIENT STATES SHE UNDERSTANDS. PATIENT HAS HOB AT 41 DEGREES. BED ALARM IS ON.
--- NOTE | 2022-08-17 15:36 | NUR ---
PATIENT UP IN THE CHAIR RESTING WATCHING TV. PATIENT GIVEN TESSLON PEARLS FOR HER COUGH. PATIENT HAS NC ON WITH CALL LIGHT WITHIN REACH.
--- NOTE | 2022-08-17 16:03 | NUR ---
PATIENT UP TO THE RESTROOM WITH WALKER AND SBA. PATIENT WAS ABLE TO VOID POST TURNER REMOVAL. PATIENT BACK IN BED NOW WITH LEGS ELEVATED WITH PILLOW. RESPIRATORY THERAPY IN ROOM TO GIVE PATIENT BREATHING TREATMENT. PATIENT ALSO RECENTLY GIVEN TESSRAULN PEARLS.
--- NOTE | 2022-08-17 17:29 | NUR ---
PATIENT DENIES EATING DINNER, STATES SHE DOES NOT FEEL HUNGRY. TEMP HAS ELEVATED AT 99.3. WILL CONTINUE TO WATCH.
--- NOTE | 2022-08-17 17:59 | NUR ---
PATIENT WAS AN ER ADMIT LAST NIGHT. PATIENT IS A HIGH FALL RISK. SHE DOES NOT USE HER CALL LIGHT DIRECTED. BED ALARM ON. NURSE OR FIRE EXTINGUISHER MECHANIC MUST REMAIN IN BATHROOM WITH PATIENT OR SHE WILL TRY TO GET BACK TO THE BED OR CHAIR ON HER OWN. PATIENT IS ON A 1600cc FLUID RESTRICTION AND HAS A HARD TIME WITH THIS. PATIENT DRINKS A LOT OF WATER WITH MEDICATIONS. PATIENT HAS AN IV IN THE RIGHT WRIST THAT FLUSHES GREAT. PATIENT IS ON 1L OF OXYGEN AND HOLDING IN THE MID 90'S. RESPIRATORY THERAPY HAS BEEN GIVING HER TREATMENTS THROUGHT THE DAY. PATIENT HAS BEEN A LITTLE ANXIOUS/RESTLESS TODAY AND LIKES TO GO FROM THE BED TO THE CHAIR A LOT. PATIENT HAD A TURNER IN THIS MORNING BUT WAS D/C BY THIS AFTERNOON. PATIENT HAS PASSED THE POST VOID. PATIENT IS VERY MOIST IN THE PANNUS AREA, DESEMEX POWDER APPLIED. JYOTHI CARE WAS DONE. SHE IS A DAILY WEIGHT, 1SBA WITH WALKER. PATIENTS DAUGHTER TRACEE IS DOWN FOR CONTACT AND FAMILY WAS IN THIS MORNING TO SEE HER. HOB IS LOCKED AT 30 DEGREES AND SHE HAS EDEMA IN BLE. THEY HAVE BEEN ELEVATED ON A PILLOW THROUGHOUT THE DAY. PATIENT IS A DNR PER NOTE. FOLLOW UP APT WITH PATIENTS PCP WAS SCHEDULED TODAY BY THIS NURSE FOR NEXT WEEK. PHYSICAL THERAPY WAS ORDERED TODAY FOR PATIENT. PATIENT GETTING IV LASIX.
--- NOTE | 2022-08-17 19:12 | NUR ---
Pt daughter Inga called for update, update provided, all questions answered.
--- NOTE | 2022-08-17 19:39 | NUR ---
REPORT RECEIVED FROM DAY SHIFT RN. PT LYING IN BED ALERT AND ORIENTED. ASSISTED TO REPOSITION IN BED. HOB ELEVATED. BED ALARM FOR SAFETY. DENIES NEEDS. WHITE BOARD UPDATED.
--- NOTE | 2022-08-17 21:08 | NUR ---
EVENING ASSESSMENT COMPLETE. SCHEDULED MEDS ADMIN PER EMAR. PRN ADMIN FOR DRY COUGH. PT DENIES PAIN OR NAUSEA. 1L/NC IN PLACE. SpO2 95%. RR 24. BLE EDEMA NOTED. 2PA TO REPOSITION IN BED. PT DENIES QUESTIONS OR CONCERNS. CALL LIGHT IN REACH. BED ALARM FOR SAFETY.
--- NOTE | 2022-08-18 00:07 | NUR ---
BED ALARM SOUNDING. PT WANTING TO SIT IN RECLINER. INCONTINENT OF SMALL AMOUNT URINE. UP TO BSC, PT UNABLE TO VOID. JYOTHI CARE DONE. CLEAN BRIEF IN PLACE. PT TO RECLINER WITH FWW AND 2PA. BLE ELEVATED. CHAIR ALARM IN PLACE. INCREASED RESPIRATIONS AND WHEEZE NOTED WITH ACTIVITY. RT IN ROOM FOR PRN KIRK TX. NO FURTHER NEEDS. CALL LIGHT IN REACH.
--- NOTE | 2022-08-18 01:43 | NUR ---
PT RESTING IN RECLINER WITH EYES CLOSED. RESPIRATIONS EVEN. CHAIR ALARM IN PLACE. CALL LIGHT IN REACH.
--- NOTE | 2022-08-18 02:11 | NUR ---
CALL LIGHT ANSWERED. PT REQUESTING TO GO BACK TO BED. 1PA WITH FWW TO BED. PRN ADMIN FOR COUGH. WARM BLANKETS PROVIDED. BED ALARM FOR SAFETY.
--- NOTE | 2022-08-18 03:55 | NUR ---
CALL LIGHT ANSWERED. PT REQUESTING BSC. INCONTINENT BEFORE ABLE TO TRANSFER TO BSC. JYOTHI CARE DONE. CLEAN BRIEF PROVIDED. PT BACK TO BED, NIKITA WELL. GAIT STEADY. ASSISTED TO REPOSTION. HOB ELEVATED. BED ALARM FOR SAFETY. CALL LIGHT IN REACH.
--- NOTE | 2022-08-18 04:51 | NUR ---
BED ALARM SOUNDING. PT UP TO BSC TO VOID SMALL AMOUNT WITH FWW AND 1PA. PT INCONTINENT WELL. STAFF ASSIST WITH JYOTHI CARE. CLEAN BRIEF PROVIDED. DAILY WEIGHT OBTAINED. PT BACK TO BED, NIKITA FAIR. VS AND I&O COMPLETE. 1L/NC IN PLACE. SpO2 94%. HOB ELEVATED. BED ALARM IN PLACE. CALL LIGHT IN REACH.
--- NOTE | 2022-08-18 07:10 | NUR ---
RECEIVED REPORT FROM PARTY PLAN DEALER NURSE AUTUMN. PATIENT UP SITTING ON THE SIDE OF HER BED WITH BEDSIDE FLOOR DIRECTOR FRONT OF HER. BED ALARM IS ON.
--- NOTE | 2022-08-18 10:25 | NUR ---
PT ALERT,ONUR PRADO JUST FINISHED CARE FOR PT. PT SITTING ON SIDE OF BED. PT PLEASANT SAID SHE THINKS SHE IS FEELING BETTER, ONUR PRADO CONFIRMED. PT REQUESTED VISIT FROM TODAY, AND TO WAKE HER IF SHE IS SLEPING. MADE CONTACT WITH FR. VAZQUEZ, HE WILL FOLLOW UP. FAM ORTIZ AND JOSH.
--- NOTE | 2022-08-18 10:42 | NUR ---
PATIENT UP AND WORKING WITH PHYSICAL THERAPY. PATIENT UP TO THE CHAIR SHE HAD AN ACCIDENT OF URINE IN THE BED. BED CHANGED, PATIENT CLEANED UP. GOWN CHANGED.
--- NOTE | 2022-08-18 11:04 | NUR ---
SPOKE TO PATIENT ABOUT HER DISCHARGE PLAN. PATIENT'S STATES SHE PLANS TO GO HOME WITH HER DAUGHTER LINNETTE. SON AND GRANDSON ALSO LIVE WITH PATIENT. PATIENT USES A WALKER AT HOME. PATIENT ALSO HAS A WHEELCHAIR IF NEEDE. PATIENT STATES SHE OWNS HERE HOUSE AND IS ABLE TO AFFORD FOOD AND MEDICATIONS NEEDED.PATIENT STATES SHE USES O2 AT HOME AND THE COMPANY IS [facility] THAT BRINGS THE O2. PATIENT HAS USED HOMEHEALTH IN PAST, DOES NOT NEED THEM AT THIS TIME. PATIENT STATES HER DAUGHTER IS VERY HELPFUL WITH HER CARE. PATIENT CAN TAKE CARE OF MOST OF ADLS.PATIENT NO LONGER DRIVES AND PATIENTS FAMILY TAKES HER TO DOCTOR APPOINTMENTS.
--- NOTE | 2022-08-18 11:06 | NUR ---
CARDIAC NURSE IN WITH PATIENT CURRENTLY. PATIENT UP IN THE CHAIR READY FOR BREAKFAST.
--- NOTE | 2022-08-18 11:07 | NUR ---
UNABLE TO MEASURE THE LAST TWO VOIDS. ONE VOID WAS AN ACCIDENT IN THE BED AND THE OTHER PATIENT WAS UP WORKING WITH PHYSICAL THERAPY AND HAD TO USE THE RESTROOM. PATIENT MISSED THE HAT.
--- NOTE | 2022-08-18 11:31 | NUR ---
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 Beta Juan ordered - was taking metoprolol succinate prior to admission Admit Wt.: 195 lb Admit Pro BNP: 19008 Social support system:lives with daughter Weight monitoring: Patient states scale is present in home. I will be checking this with daughter Advanced directive: Not discussed at this initial visit Recommendations prior to discharge: Document ambulation oxygen saturations prior to discharge Absence of orthostatic hypotension. Discharge weight less than admit weight. Discharge BNP less than admit (as per [facility] Heart Failure DC Bundle) Patient is sitting up in chair and is pleasant. Appears tired and answers questions very slowly. I will be calling daughter whom Ms Galindo lives with to find out med management plan, diet education needs, and if scale is present in home. Follow-up plans: Patient agrees to receive a follow up call from this service. Patient and family would be welcome for complimentary outpatient heart failure education. Teaching materials given today: [facility] Heart Failure bundle folder-[facility] My Action Plan Living Well with Heart Failure book, Daily weight and symptom monitoring log, Zones magnet, [facility] contact information.
--- NOTE | 2022-08-18 11:32 | NUR ---
THIS NURSE TRIED TO CALL PATIENTS MOTHER BACK LINNETTE. UNABLE TO REACH HER, LEFT A VM.
--- NOTE | 2022-08-18 13:06 | NUR ---
THIS NURSE IN TO CHECK ON PATIENT. IV LASIX GIVEN. SHE WOULD LIKE TO GO TO THE RESTROOM. PATIENT VOIDED 100. PATIENT WALKED BACK WITH WALKER WITH SBA. PATIENT GOT INTO BED AND LAID BACK WITH THE HOB AT 45 DEGREES. SHE STARTED TO PANIC WITHIN A MINUTE AND HAD TO SIT UP. SHE FELT LIKE SHE COULDNT BREATH. PATIENT HELPED UP TO THE SIDE OF THE BED. OXGYGEN TURNED UP TO 3, SPOT CHECK AND PATIENT WAS AT 98. ONCE PATIENT WAS UP ON THE SIDE OF THE BED RESPIRATIONS DECREASE AND SHE IMPROVES. HOWEVER, PATIENT IS VERY TIRED AND NOT ABLE TO GET REST SITTING UP. THIS NURSE THEN TRIED TO MOVE THE HOB TO 50 DEGREES AND SHE STILL DID NOT WANT TO LAY IN BED. PATIENT CURRENTLY NOW SITTING AT THE SIDE OF THE BED WITH THE BALL MAKER FRONT OF HER. CALL LIGHT WITHIN REACH, BED ALARM ON, BLANKET WRAPPED AROUND THE BACK OF HER. HEART RATE WAS IN THE 110'S.
--- NOTE | 2022-08-18 13:13 | NUR ---
PATIENT RESTING IN BED. IM MEDICARE LETTER GIVEN TO PATIENT TO SIGN. PATIENT SIGNED AND FILLED OUT DATE AND TIME. PATIENT HAD NO QUESTIONS AND VOICED UNDERSTANDING.
--- NOTE | 2022-08-18 14:02 | EKG ---
[facility] [address] [facility] [place] [address] Signed Sinus tachycardia Low voltage QRS Right bundle branch block Inferior infarct (cited on or before 19-APR-2021) Abnormal ECG When compared with ECG of 31-JUL-2022 02:42, premature ventricular complexes are no longer present Borderline criteria for Anterior infarct are no longer present T wave inversion now evident in Anterior leads Confirmed by MATTHIAS HOOD MD ([id number]) on 08/18/2022 2:01:59 PM Electronically Signed By: MATTHIAS HOOD MD 08/18/22 1402 PATIENT NAME: JUNIOR HUMPHREYS Electrocardiogram DATE OF : 36 PHYSICIAN: MATTHIAS HOOD MD REPORT #: [id number] REPORT IS CONFIDENTIAL AND NOT TO BE RELEASED WITHOUT AUTHORIZATION
--- NOTE | 2022-08-18 14:12 | NUR ---
PHONE CALL TO PATIENTS RESPIRATIONS CONINUE TO INCREASE 30-32. SHE IS SITTING BACK UP IN BED LEANING FORWARD. OXYGEN STATS ARE HOLDING, PATIENT ON 1L OF OXYGEN. PER PATIENT TO HAVE PRN NEBULIZER AND ANOTHER DOSE OF 40MG OF LASIX. WILL CONINTINUE TO MONITOR PATIENT CLOSE.
--- NOTE | 2022-08-18 14:43 | NUR ---
PATIENT RECEIVED HER NEBULIZER TREATMENT AND HAS SIGNIFICANTLY IMPROVED. RESPIRATIONS AT 21. PATIENT GOT HER IV LASIX AND A PURE WICK WAS PLACED PATIENT GETS VERY SOB AND FATIGUE GETTING UP. PATIENT IS CURRENTLY SITTING AT THE EDGE OF THE BED WITH FAMILY HERE TO VISIT.
--- NOTE | 2022-08-18 16:43 | NUR ---
Heart Failure Note Spoke to daughter Cierra on phone. She is very concerned that her mother has not eating much at home. She has been shredding the meat for her. Patient likes asparagus and mashed potatoes. I suggested she discuss soft diet and nutrition drinks supplements with physician. Cierra does give her daily home medications. Reports that patient hates taking the potassium tablet and that patient gags on it. Per Zo at [facility] pharmacy states that their may be alternatives of Ktabs or liquid. Recommended that daughter talk to [facility] pharmacy if still on potassium at discharge. Per daughter patient has not taken NSAIDs for 2 years. Gave information to Cierra that NSAIDs are associated with risk of hypervolemia and worsening heart failure. Has not been doing daily weights at home and do not have a scale in house. Daughter does not feel patient can stand well enough to get on home scales.
--- NOTE | 2022-08-18 17:21 | NUR ---
PATIENT SITTING ON THE SIDE OF THE BED EATING DINNER, PATIENT TOOK OUT THE PURE WICK ON HER OWN. WE WILL GO AHEAD AND TRY TO LEAVE IT OUT AND SEE HOW PATIENT DOES. PATIENT HAS IMPROVED WITH HER RESPIRATIONS. PATIENT SEEMS A LOT MORE COMFORTABLE. PATIENT TURNED AND PLACED IN BED, SHE WAS MOVED UP IN THE BED, HAS BLANKETS ON, CALL LIGHT WITHIN REACH, BED ALARM ON.
--- NOTE | 2022-08-18 17:38 | NUR ---
PATIENT IN BED RESTING WITH EYES CLOSED AT THIS TIME. VITALS AND I&O'S CHARTED. RESPIRATIONS 30 AND RADIAL PULSE 67 WHEN TAKEN BY THIS GENERAL FORECASTER. ONUR PRADO NOTIFIED. CALL LIGHT IN REACH.
--- NOTE | 2022-08-18 17:53 | NUR ---
RAPID RESPONSE THIS NURSE WENT INTO CHECK ON PATIENT. PATIENT WAS LAYING IN BED WITH THE HOB ELEVATED. PATIENT ADVISED THIS NURSE THAT SHE NEEDED TO GO TO THE BATHROOM. SHE THEN STARTED TO PANIC AND STARTED TO CRAWL OUT OF BED. THIS NURSE INCREASED HER OXYGEN TO 4L AND MOVE THE BEDSIDE COMMODE NEXT TO THE BED. PATIENT USED HER WALKER AND GOT HERSELF UP. PATIENT TURNED AND SATDOWN ON THE COMMODE. PATIENT WAS ON THE COMMONDE AND STARTED TO HAVE TROUBLE BREATHING. PATIENT THEN LOST CONSCIOUSNESS. THIS NURSE HELD PATIENT UP AND CALLED FOR HELP. NURSING PLACEMENT INTERVIEWER INTO THE ROOM AND RAPID RESPONSE WAS CALLED AT 175. 175-RAPID RESPONSE CALLED, SALIVA AND DROOL WERE COMING FROM PATIENTS RIGHT SIDE OF HER MOUTH. 175-ER NURSE JIM, PLACEMENT INTERVIEWER NAVIN, AND DR. WITT AT THE BEDSIDE. VITALS- 99% OXYGEN, 4L OXYGEN, BLOOD PRESSURE 88/81, MAP 56, HEART RATE 192. 175-EKG ORDERED, CODE CART IN ROOM. PATIENT CRIES OUT WITH PAIN AND GRABS HER CHEST. 1756-PATIENT CRIES OUT A THIRD TIME HOLDING HER CHEST. INTERNAL PACER SHOCKING. 1757-PATIENT RECEIVED A 4TH SHOCK BY INTERNAL PACER. FENTANYL 50MCG ORDERED. 1758-PATIENT RECEIVED A 5TH SHOCK BY INTERNAL PACER. AND 50MCG OF FENTANYL WAS GIVE. 1759-PATIENT RECEIVED A 6TH SHOCK BY INTERNAL PACER, SAW V-TACK PRIOR ON MONITOR AND ANTICIPATED SHOCK. 1800- SEES V-TACK ON THE MONITOR AGAIN. 7TH SHOCK FROM INTERNAL PACER WAS GIVEN. AMIODARONE WAS ORDERED FOR PATIENT. 1801-VITAL SIGNS DONE. BLOOD PRESSURE 109/84, PULSE 165, OXGYEN AT 93% 8TH SHOCK FROM INTERNAL PACER WAS GIVEN, ANTICIPATED FROM MONITOR READING. 1801 AND 40 SECONDS- 9TH SHOCK BY INTERNAL PACER. 1801 AND 50 SECONDS- 10TH SHOCK BY INTERNAL PACER. 2GRAMS OF MAGNESIUM ORDERED FOR PATIENT 1802 AND 25 SECONDS- 11TH SHOCK BY INTERNAL PACER. 1803- 300MG OF AMIODARONE GIVEN TO PATIENT IV. 1804- 50MCG OF FETANYL ORDRED FOR PATIENT 1805- 2GRAMS OF MAGNESIUM GIVEN TO PATIENT IV. VITAL SIGNS- BLOOD PRESSURE 123/56, 97% OXYGEN, HEART RATE OF 167 180- LABS ORDERED ALONG WITH AMIODARONE DRIP. 1807- 2GRAMS OF MAGNESIUM FINISHED VIA IV. ADDITIONAL 50MCG OF FENTANYL HELD PER . SECOND EKG ORDRED FOR PATIENT. 1808-WIDE COMPLEX ON EKG SHOWN, 10ML LAB DRAW DONE FROM R HAND IV SITE. 180-AGONAL BREATHING NOTED, BRADYCARDIA SHOWN ON MONITOR. DNR STATUS CONFIRMED BY FAMILY PER . 1809-PATIENT IS NO LONGER BREATHING, EKG AND LABS HAVE BEEN CANCELED. 1810-NO FEMORAL OR CAROTID PULSE FOUND BY GLORIA MOHR. 181- CONFIRMED NO PULSE, AGONAL BREATHING HAS CONTINUED, MAGNET PLACED OVER PACER. 1818-PATIENTS PUPILS FIXED AND DIALATED. AGONAL BREATHING HAS STOPPED. 1820- TIME OF WAS PRONOUNCED BY .
--- NOTE | 2022-08-18 20:14 | NUR ---
PT LEFT FLOOR WITH FAMILY, [employer], [facility]. ALL PERSONAL SUPPLIES SENT WITH FAMILY, INCLUDING 2 GIFT BAGS, UPPER DENTURE PT WEARING, LOWERS WERE LEFT AT HOME. NO JEWELRY PRESENT WITH PT ON ADMISSION.
--- NOTE | 2022-08-18 20:30 | NUR ---
Patient had passed prior to my arrival. Daughter was in room at bedside exhibiting significant grief. I exercised ministry of presence and hospitality. Said prayer of commendation for patient. Daughter called family and waited for them to arrive. Grandchildren and siblings arrived and spent time with patient in room. I notified [employer] at family request. Family waited until [facility] arrived and walked with body to exit. ONUR Jackson assisted Mario of [employer] and I with transfer of body from bed to gurney and removed magnet to return to code cart. Family took all belongings home with them.
--- NOTE | 2022-08-19 10:39 | EKG ---
[facility] [address] [facility] [place] [address] Signed Wide QRS tachycardia with premature supraventricular complexes Right bundle branch block Left anterior fascicular block Bifascicular block Inferior infarct , age undetermined Abnormal ECG Confirmed by Kymberly Villanueva MD () on 08/19/2022 10:39:13 AM Electronically Signed By: KYMBERLY VILLANUEVA MD 08/19/22 1039 PATIENT NAME: PETRJUNIOR ROSE Electrocardiogram DATE OF : 36 PHYSICIAN: KYMBERLY VILLANUEVA MD REPORT #: [id number] REPORT IS CONFIDENTIAL AND NOT TO BE RELEASED WITHOUT AUTHORIZATION
== END 2022-08-18 20:14 | DRG 292 ==
LOC: ED 16:35 → MS 19:38
PROVIDERS: ADMIT Internal Medicine; ATTEND Family Medicine
DX: I50.23 Acute on chronic systolic (congestive) heart failure (principal); I47.20 Ventricular tachycardia, unspecified; Z20.822 Contact with and (suspected) exposure to COVID-19; Z66 Do not resuscitate; J44.9 Chronic obstructive pulmonary disease, unspecified; E11.9 Type 2 diabetes mellitus without complications; E78.00 Pure hypercholesterolemia, unspecified; I25.10 Atherosclerotic heart disease of native coronary artery without angina pectoris; K21.9 Gastro-esophageal reflux disease without esophagitis; F17.210 Nicotine dependence, cigarettes, uncomplicated; B34.9 Viral infection, unspecified; Z91.148 Patient's other noncompliance with medication regimen for other reason; Z96.641 Presence of right artificial hip joint; Z96.651 Presence of right artificial knee joint; Z90.49 Acquired absence of other specified parts of digestive tract; Z95.1 Presence of aortocoronary bypass graft; Z98.890 Other specified postprocedural states; Z95.0 Presence of cardiac pacemaker; Z79.899 Other long term (current) drug therapy; Z79.01 Long term (current) use of anticoagulants
CPT/HCPCS: 36415; 51701; 71045; 80048; 80053; 81001; 83605; 83735; 83880; 84484; 85025; 87040; 87502; 93005; 93010; 94640; 94668; 94760; 97110; 97116; 97162; 99285-25; 99406; A9270; C9803; J0282; J1940; J3010; J3475; U0003